=== PATIENT | male | born 1935 | race Caucasian/White ===

== ENCOUNTER 2018-01-31 08:27 | Observation (INO) | payer MEDICARE, SELFPAY ==
[2018-01-31] VITALS (18 sets, daily range): BP systolic 103–133; BP diastolic 63–77; PULSE 55–72; RESP 14–20; TEMP 36.6–36.9; O2SAT 92–99; BMI 24.3; BMI 23.7
--- NOTE | 2018-01-31 08:34 | CT_ITS ---
STUDY: CT BRAIN WITHOUT CONTRAST REASON FOR EXAM: Male, 82 years old. Left facial droop. Slurred speech. RADIATION DOSAGE (If Supplied By Facility): CTDIvol = ( 44.99 ) mGy, DLP = ( 829.85 ) mGycm TECHNIQUE: Transaxial CT imaging of the brain was performed without administration of intravenous contrast material. Individualized dose optimization techniques were used for this CT. COMPARISON: None. FINDINGS: Normal soft tissue structures. Normal calvarium. There is mild cerebral atrophy with widening of the extra-axial spaces and ventricular dilatation. There are areas of decreased attenuation within the white matter tracts of the supratentorial brain, consistent with microvascular disease changes. Normal basal ganglia and thalami. Normal brainstem. Normal cerebellum. There is no intracranial hemorrhage. There are no findings of an acute ischemic infarction. Atherosclerotic calcification of the cavernous portions of the internal carotid arteries bilaterally. Increased density of the right middle cerebral artery. Thrombus should BE ruled out. Correlation with CT of the brain is recommended. Normal visualized paranasal sinuses. CT/Brain/Head without Contrast IMPRESSION: Chronic involutional changes of the brain. Questionable increased density in the right middle cerebral artery. Correlation with a CTA of the brain is recommended. N.B. : The above information has been verbally conveyed by Nick Sylvester MD to Willie Corral, Referring Physician, on 01/31/2018 09:00:16 (ET). Electronically Signed: Nick Sylvester MD at 9:00 EDT Tel [phone], Service support , N.B. : The above information has been verbally conveyed by Nick Sylvester MD to Willie Corral, Referring Physician, on 01/31/2018 09:00:16 (ET).
--- NOTE | 2018-01-31 08:34 | EKG12_ITS ---
Test Reason : CVA Blood Pressure : / mmHG Vent. Rate : 062 BPM Atrial Rate : 062 BPM P-R Int : 214 ms QRS Dur : 104 ms QT Int : 414 ms P-R-T Axes : 020 -30 061 degrees QTc Int : 420 ms Sinus rhythm with 1st degree A-V block with occasional ventricular-paced complexes Left axis deviation Inferior infarct , age undetermined T wave abnormality, consider anterior ischemia Abnormal ECG Confirmed by VERONICA CHANEL, AJITH ([id number]), graphic editor ALESSANDRO GUERRA ([id number]) on 02/01/2018 9:08:59 AM Referred By: SHAW Confirmed By:AJITH MARTIN MD
[2018-01-31 08:35] LABS: Bedside Glucose 120 mg/dL (70-110)
[2018-01-31 08:45] LABS: Absolute Lymphocyte Count 1.99 X10^3/ul (0.83-4.51); Absolute Neutrophil Count 5.4 X10^3/uL (2.0-7.7); Basophil# 0.05 X10^3/uL; Basophil% 0.6 % (0-1); Eosinophil# 0.08 X10^3/uL; Hematocrit 38.7 % (40-54); Hemoglobin 12.6 g/dl (13.0-16.5); Lymphocyte # 1.99 X10^3/ul (4.0); Lymphocyte % 23.9 % (19-41); Mean Corp Hgb Conc 32.6 g/gl (32-36); Mean Corpuscular Hgb 28.4 pg (27.0-32.0); Mean Corpuscular Volume 87.2 fL (80-94); Mean Platelet Vol. 8.5 fl (6.2-12.0); Monocyte# 0.86 X10^3/uL; Monocyte% 10.3 % (0-10); Neutrophil # 5.35 X10^3/uL (2.7-7.7); Neutrophil % 64.1 % (47-70); POSITIVE COUNT NO; POSITIVE DIFFERENTIAL NO; POSITIVE MORPHOLOGY NO; Platelet Count 288 K/mm3 (150-450); RBC Distribution Width CV 14.2 % (11.6-14.6); RBC Distribution Width SD 45.1 fl (35.1-43.9); Red Blood Count 4.44 M/mm3 (4.6-6.2); White Blood Count 8.3 K/mm3 (4.4-11.0)
[2018-01-31 08:59] LABS: International Normalized Ratio 1.1; Prothrombin Time (Protime)PT. 13.8 SECONDS (11.7-14.9)
[2018-01-31 09:00] LABS: Partial Thromboplast Time 32.1 Seconds (24.1-36.2)
[2018-01-31 09:02] LABS: Anion Gap 6 (5-15); BUN 27 mg/dL (7-18); BUN/Creat Ratio 16.6 RATIO (10-20); Calcium,Total 8.1 mg/dL (8.5-10.1); Chloride 105 mmol/L (98-107); Creatinine, Serum 1.63 mg/dL (0.70-1.30); EST Glomerular Filtration Rate 43 mL/min (>60); Est Glom Filt Rate - Afr Amer 52 mL/min (>60); Estimated Creatinine Clearance 37.86 ml/min; Glucose 91 mg/dL (74-106); Potassium 4.1 mmol/L (3.5-5.1); Sodium Level 138 mmol/L (136-145)
--- NOTE | 2018-01-31 09:04 | CT_ITS ---
STUDY: CTA OF THE BRAIN REASON FOR EXAM: Male, 82 years old. Left facial droop. Slurred speech. RADIATION DOSAGE (If Supplied By Facility): CTDIvol = ( 26.39 ) mGy, DLP = ( 828.97 ) mGycm TECHNIQUE: CT angiography was performed with a multi-detector CT scanner. Data acquisition was obtained from the skull base through the vertex following intravenous administration of 75 ml of Isovue-370. MIP images were reconstructed from the axial data set. Post-processing of the angiographic images was performed, with multiplanar reformation and 3D reconstruction. Individualized dose optimization techniques were used for this CT. COMPARISON: None. FINDINGS: Normal bilateral petrous carotid arteries. There is calcified plaque formation of the right cavernous carotid artery, without a cross-sectional luminal stenosis. There is calcified plaque formation of the left cavernous carotid artery, without a cross-sectional luminal stenosis. Normal right A1 segments of the anterior cerebral artery. Normal left A1 segments of the anterior cerebral artery. Normal intact anterior communicating artery (ACOM). Normal bilateral A2 segments of the anterior cerebral arteries. Normal right M1 and M2 segments of the middle cerebral arteries, with a normal M1 bifurcation. Normal left M1 and M2 segments of the middle cerebral arteries, with a normal M1 bifurcation. Normal right posterior communicating artery (PCOM). Normal left posterior communicating artery (PCOM). Normal bilateral vertebral arteries. Normal basilar artery with a normal basilar bifurcation. The visualized bilateral superior cerebellar (SCA) arteries are normal. Normal bilateral P1, P2 and visualized P3 segments of the posterior cerebral arteries. There is no demonstrated aneurysm of the [place] of [place]. IMPRESSION: Normal [place] of [place] without a demonstrated aneurysm or hemodynamically significant stenosis. Electronically Signed: Nick Sylvester MD at 10:48 EDT Tel [phone], Service support , STUDY: CTA NECK WITH CONTRAST REASON FOR EXAM: Male, 82 years old. Left facial droop with slurred speech. RADIATION DOSAGE (If Supplied By Facility): CTDIvol = ( 26.39 ) mGy, DLP = ( 858.97 ) mGycm TECHNIQUE: CT angiography with multi-detector data acquisition was performed from the aortic arch to the skull base following intravenous administration of 75mL ml of Isovue 370 contrast. MIP images were reconstructed from the axial data set. Post-processing of the angiographic images was performed, with multiplanar reformation and 3D reconstruction. Individualized dose optimization techniques were used for this CT. COMPARISON: None. FINDINGS: Prior CABG. AORTIC ARCH: Normal visualized aortic arch. Normal origins of the brachiocephalic, left common carotid, and left subclavian arteries. RIGHT CAROTID ARTERIES: There is atherosclerotic plaque formation of the common carotid artery, but without a hemodynamically significant stenosis. Normal right common carotid bulb. There is mild atherosclerotic plaque formation of the origin of the right internal carotid artery with less than 50% cross sectional diameter stenosis. Normal visualized cervical portion of the right internal carotid artery. Normal origin of the right external carotid artery (ECA). LEFT CAROTID ARTERIES: There is atherosclerotic plaque formation of the common carotid artery, but without a hemodynamically significant stenosis. Normal left common carotid bulb. There is mild atherosclerotic plaque formation of the origin of the left internal carotid artery with less than 50% cross sectional diameter stenosis. Normal visualized cervical portion of the left internal carotid artery. Normal origin of the left external carotid artery (ECA). VERTEBRAL ARTERIES: Normal bilateral vertebral arteries. CT/CTA Neck W/WO Contrast IMPRESSION: Plaque formation at the origins of both internal carotid arteries with less than 50% stenosis. Electronically Signed: Nick Sylvester MD at 10:49 EDT Tel [phone], Service support ,
--- NOTE | 2018-01-31 09:04 | CT_ITS ---
STUDY: CTA OF THE BRAIN REASON FOR EXAM: Male, 82 years old. Left facial droop. Slurred speech. RADIATION DOSAGE (If Supplied By Facility): CTDIvol = ( 26.39 ) mGy, DLP = ( 828.97 ) mGycm TECHNIQUE: CT angiography was performed with a multi-detector CT scanner. Data acquisition was obtained from the skull base through the vertex following intravenous administration of 75 ml of Isovue-370. MIP images were reconstructed from the axial data set. Post-processing of the angiographic images was performed, with multiplanar reformation and 3D reconstruction. Individualized dose optimization techniques were used for this CT. COMPARISON: None. FINDINGS: Normal bilateral petrous carotid arteries. There is calcified plaque formation of the right cavernous carotid artery, without a cross-sectional luminal stenosis. There is calcified plaque formation of the left cavernous carotid artery, without a cross-sectional luminal stenosis. Normal right A1 segments of the anterior cerebral artery. Normal left A1 segments of the anterior cerebral artery. Normal intact anterior communicating artery (ACOM). Normal bilateral A2 segments of the anterior cerebral arteries. Normal right M1 and M2 segments of the middle cerebral arteries, with a normal M1 bifurcation. Normal left M1 and M2 segments of the middle cerebral arteries, with a normal M1 bifurcation. Normal right posterior communicating artery (PCOM). Normal left posterior communicating artery (PCOM). Normal bilateral vertebral arteries. Normal basilar artery with a normal basilar bifurcation. The visualized bilateral superior cerebellar (SCA) arteries are normal. Normal bilateral P1, P2 and visualized P3 segments of the posterior cerebral arteries. There is no demonstrated aneurysm of the [place] of [place]. IMPRESSION: Normal [place] of [place] without a demonstrated aneurysm or hemodynamically significant stenosis. Electronically Signed: Nick Sylvester MD at 10:48 EDT Tel [phone], Service support , STUDY: CTA NECK WITH CONTRAST REASON FOR EXAM: Male, 82 years old. Left facial droop with slurred speech. RADIATION DOSAGE (If Supplied By Facility): CTDIvol = ( 26.39 ) mGy, DLP = ( 858.97 ) mGycm TECHNIQUE: CT angiography with multi-detector data acquisition was performed from the aortic arch to the skull base following intravenous administration of 75mL ml of Isovue 370 contrast. MIP images were reconstructed from the axial data set. Post-processing of the angiographic images was performed, with multiplanar reformation and 3D reconstruction. Individualized dose optimization techniques were used for this CT. COMPARISON: None. FINDINGS: Prior CABG. AORTIC ARCH: Normal visualized aortic arch. Normal origins of the brachiocephalic, left common carotid, and left subclavian arteries. RIGHT CAROTID ARTERIES: There is atherosclerotic plaque formation of the common carotid artery, but without a hemodynamically significant stenosis. Normal right common carotid bulb. There is mild atherosclerotic plaque formation of the origin of the right internal carotid artery with less than 50% cross sectional diameter stenosis. Normal visualized cervical portion of the right internal carotid artery. Normal origin of the right external carotid artery (ECA). LEFT CAROTID ARTERIES: There is atherosclerotic plaque formation of the common carotid artery, but without a hemodynamically significant stenosis. Normal left common carotid bulb. There is mild atherosclerotic plaque formation of the origin of the left internal carotid artery with less than 50% cross sectional diameter stenosis. Normal visualized cervical portion of the left internal carotid artery. Normal origin of the left external carotid artery (ECA). VERTEBRAL ARTERIES: Normal bilateral vertebral arteries. CT/CTA Head W/WO Contrast IMPRESSION: Plaque formation at the origins of both internal carotid arteries with less than 50% stenosis. Electronically Signed: Nick Sylvester MD at 10:49 EDT Tel [phone], Service support ,
[2018-01-31] MEDS: 0.9% Normal Saline 1,000 ML 999 ML IV (09:06)
--- NOTE | 2018-01-31 09:28 | RAD_ITS ---
STUDY: X-RAY CHEST REASON FOR EXAM: Male, 82 years old. Strokelike symptoms. TECHNIQUE: Single AP portable view of the chest. COMPARISON: Comparison is made with prior study dated February 17, 2017. FINDINGS: EKG electrodes are seen. Increased markings are seen in the right midlung. This may represent early infiltrate and/or atelectasis. Follow-up is recommended. There is no demonstrated pleural abnormality. Sternal cerclage wires and vascular clips are present from a prior sternotomy and coronary artery bypass graft procedure (CABG). Mild cardiomegaly. A left-sided dual-chamber pacemaker is seen. Normal mediastinum and yony. Normal visualized pulmonary arteries. There is atherosclerotic calcification of the aortic arch with tortuosity. Normal visualized thoracic spine. Soft tissue calcification in the region of the left shoulder. This may represent osteochondromatosis. There is no demonstrated abnormality of the visualized soft tissue structures of the upper abdomen. RAD/Chest 1 View IMPRESSION: Prior CABG. Increased markings in the right midlung. This is suggestive of atelectasis and/or early infiltrate. Follow-up is recommended. Electronically Signed: Nick Sylvester MD at 9:49 EDT Tel [phone], Service support ,
--- NOTE | 2018-01-31 11:19 | ECHOCS_ITS ---
Reason For Study: Stroke/CAD Procedure This was a 2D Doppler, Color Flow transthoracic echocardiogram. Did not use Definity due to increased PAP. Exam performed portable in ED. Left Ventricle Moderately dilated left ventricle. The estimated ejection fraction is 25 %. Stage 2 diastolic dysfunction. There is severe global hypokinesis of the left ventricle. Right Ventricle Normal size and thickness. ICD or pacer leads identified within the right ventricle. Normal systolic function. Atria The left atrium is severely enlarged. Normal right atrium. ICD or pacer leads identified within the right atrium. Normal atrial septum. Mitral Valve Mild diffuse mitral valve thickening. Mild (1+) eccentric mitral valve insufficiency. Tricuspid Valve Normal tricuspid valve. Mild (1+) tricuspid valve insufficiency. Right ventricular systolic pressure estimated to be 49 mmHg. Moderate pulmonary hypertension. Aortic Valve Trisinus/trileaflet aortic valve. Mild diffuse aortic valve thickening. Trivial aortic valve insufficiency. Pulmonic Valve Normal pulmonic valve. Mild (1+) pulmonic valve insufficiency. Great Vessels Normal aortic root. Normal arch. The inferior vena cava is dilated. Inferior vena cava collapse with sniff. Pericardium/Pleural No pericardial effusion. MMode/2D Measurements & Calculations LVIDd: 4.9 cm IVSd: 1.1 cm Ao root diam: 3.2 cm LVIDs: 4.2 cm LVPWd: 0.98 cm RVDd: 5.4 cm FS: 14.0 % LAV(MOD-bp): 83.1 ml EDV(MOD-sp4): 100.5 ml SV(MOD-sp4): 40.1 ml LAV(MOD-bp) Indexed: 42.2 ml/m2 ESV(MOD-sp4): 60.4 ml LAV(MOD-sp2): 84.8 ml EF(MOD-sp4): 39.9 % LAV(MOD-sp4): 70.7 ml LA A4 area: 23.8 cm2 RA A4 area: 18.0 cm2 Doppler Measurements & Calculations MV E max avni: 76.7 cm/sec Lat Peak E' Avni: 6.8 cm/sec Med Peak E' Avni: 3.3 cm/sec MV A max avni: 58.9 cm/sec E/E' lat: 11.3 E/E' med: 23.3 MV E/A: 1.3 Ao V2 max: 141.8 cm/sec AI max avni: 392.4 cm/sec LV V1 max: 79.2 cm/sec Ao max P.0 mmHg AI max P.6 mmHg LV V1 max P.5 mmHg Ao V2 mean: 100.6 cm/sec AI dec slope: 194.5 cm/sec2 Ao mean P.4 mmHg AI P1/2t: 590.9 msec Ao V2 VTI: 31.7 cm PA V2 max: 76.3 cm/sec PI end-d avni: 133.2 cm/sec TR max avni: 340.8 cm/sec TR max P.4 mmHg Interpretation Summary Moderately dilated left ventricle. The estimated ejection fraction is 25 %. Stage 2 diastolic dysfunction. There is severe global hypokinesis of the left ventricle. The left atrium is severely enlarged. Mild (1+) eccentric mitral valve insufficiency. Mild (1+) tricuspid valve insufficiency. Right ventricular systolic pressure estimated to be 49 mmHg. Moderate pulmonary hypertension. Trivial aortic valve insufficiency. The inferior vena cava is dilated Compared to echo report dated 02/24/2014, LV function has worsened from 55% to 25%. RVSP is about the same. Ordering Physician: Willie Corral Performed By: Rukhsana Waters, LEOBARDO, RVT
--- NOTE | 2018-01-31 11:30 | PCM.HP.STD ---
Problem List (1) Presence of implantable cardioverter-defibrillator (ICD) Status: Chronic (2) Atherosclerotic heart disease of [place] coronary artery without angina pectoris Status: Chronic Qualifiers: [place] vs. transplanted heart: unspecified whether [place] or transplanted heart Qualified Code(s): I25.10 - Atherosclerotic heart disease of [place] coronary artery without angina pectoris Comment: CABG X 3 11/24/10 (3) Hyperlipidemia Status: Chronic Qualifiers: Hyperlipidemia type: unspecified Qualified Code(s): E78.5 - Hyperlipidemia, unspecified (4) Ischemic cardiomyopathy Status: Chronic (5) Paroxysmal atrial fibrillation Status: Chronic (6) CKD (chronic kidney disease) stage 3, GFR 30-59 ml/min Status: Chronic Comment: Baseline Cr 1.2-1.4 (7) HTN (hypertension) Status: Chronic Qualifiers: Hypertension type: essential hypertension Qualified Code(s): I10 - Essential (primary) hypertension (8) S/P CABG x 3 Status: Chronic Comment: CABG X 3v 11/24/10: MENDOZA to LAD,SVG to Diagonal branch of LAD and posterolateral cx (9) Conduction disorder, unspecified Status: Chronic (10) TIA (transient ischemic attack) Status: Acute Qualifiers: Transient cerebral ischemia type: unspecified Qualified Code(s): G45.9 - Transient cerebral ischemic attack, unspecified History of Present Illness Date of Admission: 01/31/18 Chief Complaint: TIA The patient is a 82 y/o M w/ PMHx: CAD s/p CABG x 3, HTN, HLD, Ischemic Cardiomyopathy s/p AICD, Conduction disorder s/p pacemaker, PAF, CKD stage III (baseline Cr 1.3-1.4) who presents to the [facility] ED on 01/31/18 with history of awakening this AM at ~ 5:30 am, noted to have at baseline with onset while seated, reading at ~ 7 am feeling off with abnormal sensation of his tongue with mild dysphagia and eventual discussion with his to report feeling unwell with spouse noted severely garbled speech and L sided facial droop. He improved upon ED presentation and within 1 hour in the ED noted return to his normal baseline neurological status. While in the ED, physician noted telemetry w/ paced, sinus and ? PAF variations to his rhythm. Dr. Lucas, Neurology consulted per ED and requested addition UA to his work-up. In the ED work-up included afebrile, heart rate 68, BP 109/64, respiratory rate 15, 97% on 2 L nasal cannula, EDC with W BC 8.3, hemoglobin 12.6, platelet 288 without left shift, normal coags, BMP w/ BUN/Cr 27/1.63, trop < 0.015, UA pending, CXR w/ s/p CABG, increased markings R midlung, possibly atelectasis, CT head in the ED w/ chronic involutional changes of the brain with questionable increased density in the right middle cerebral artery, CTA Head with normal-appearing [place], CTA Neck with plaque formation at the origins of both internal carotid arteries with less than 50% stenosis. Past Medical History Past Medical History (Chronic Problems): Chronic Problems (Last Reviewed 10/17/17 @ 09:29 by Ten Tineo MD) Presence of implantable cardioverter-defibrillator (ICD) (Chronic) Atherosclerotic heart disease of [place] coronary artery without angina pectoris (Chronic) CABG X 3 11/24/10 Hyperlipidemia (Chronic) Ischemic cardiomyopathy (Chronic) Abnormal electrocardiogram [ECG] [EKG] (Chronic) Biventricular automatic implantable cardioverter defibrillator in situ (Chronic) ICD Implant 05/25/11 Paroxysmal atrial fibrillation (Chronic) Palpitations (Chronic) CKD (chronic kidney disease) stage 3, GFR 30-59 ml/min (Chronic) Baseline Cr 1.2-1.4 HTN (hypertension) (Chronic) S/P CABG x 3 (Chronic) CABG X 3v 11/24/10: MENDOZA to LAD,SVG to Diagonal branch of LAD and posterolateral cx Pacemaker (Chronic) Conduction disorder, unspecified (Chronic) Medical History: Medical History (Last Reviewed 10/17/17 @ 09:29 by Ten Tineo MD) Atherosclerotic heart disease of [place] coronary artery without angina pectoris (Chronic) I25.10 CABG X 3 11/24/10 Hyperlipidemia (Chronic) E78.5 Ischemic cardiomyopathy (Chronic) I25.5 Abnormal electrocardiogram [ECG] [EKG] (Chronic) R94.31 Paroxysmal atrial fibrillation (Chronic) I48.0 Palpitations (Chronic) R00.2 HTN (hypertension) (Chronic) I10 Pacemaker (Chronic) Z95.0 Encounter for long-term current use of high risk medication Z79.899 Allergies No Known Allergies Allergy (Verified 01/31/18 08:49) Home Medications: Ambulatory Orders Medication Instructions Recorded Aspirin [Aspirin, Baby] 81 mg PO DAILY@0800 02/16/17 Wilber Q Plus 1 tab PO BID 02/17/17 Carvedilol [Coreg (Beta Srinivasa)] 12.5 mg PO BID 01/31/18 Surgical History: Surgical History (Last Updated 11/03/17 @ 18:49 by Tamara Nino) Presence of implantable cardioverter-defibrillator (ICD) (Chronic) Z95.810 Biventricular automatic implantable cardioverter defibrillator in situ (Chronic) Z95.810 ICD Implant 05/25/11 S/P CABG x 3 (Chronic) Z95.1 CABG X 3v 11/24/10: MENDOZA to LAD,SVG to Diagonal branch of LAD and posterolateral cx Surgical History: coronary bypass surgery, pacemaker implantation, - - CABG x 3, AICD/Pacemaker, R inguinal hernia x 2, L inguinal hernia x 1, Possible femoral hernia x 1 per description. Psychiatric History: No pertinent psych hx Lives: Spouse/ Significant Other Smoking Status: Never smoker Tobacco Use: Non-smoker Alcohol: None Drugs: None - *Family History Paternal Family History: Family History (Last Reviewed 10/17/17 @ 09:29 by Ten Tineo MD) Father CAD (coronary artery disease), Onset Age: 55 Mother No problems noted. Brother CAD (coronary artery disease) History of coronary artery bypass graft x 3 Brother Cancer Brother Unknown whether patient has any health problems Brother No problems noted. History Items: Heart Disease Maternal Family History: Family History (Last Reviewed 10/17/17 @ 09:29 by Ten Tineo MD) Father CAD (coronary artery disease), Onset Age: 55 Mother No problems noted. Brother CAD (coronary artery disease) History of coronary artery bypass graft x 3 Brother Cancer Brother Unknown whether patient has any health problems Brother No problems noted. History Items: No pertinent history Review of Systems Constitutional: Reports: Fatigue. Denies: Chills, Fever, Weight Change HEENT: Denies: Head Aches, Sinus Congestion, Sinus Drainage Cardiovascular: Denies: Chest Pain, Chest Pressure, Chest Tightness, Edema, Heaviness, Light Headedness, Orthopnea, Palpitations, Syncope Respiratory: Denies: Cough, Shortness of Breath, Shortness of breath at rest, Shortness of breath upon exertion, Sputum production, Wheezing Gastrointestinal: Denies: Abdominal Pain, Nausea, Vomiting Genitourinary: Denies: Dysuria Musculoskeletal: Reports: Joint stiffness. Denies: Joint Pain, Joint Tenderness Skin: Denies: Rash, Skin Changes, Wounds Neurological: Reports: Slurred speech, Focal weakness. Denies: Numbness, Tingling Psychiatric: Denies: Anxiety, Depression, Homicidal Ideations, Suicidal Ideations Hematologic/ Lymphatic: Reports: Anemia, Easy Bruising, Easy Bleeding VTE Information - Inpt Only VTE Present on Admission: No VTE Mechan Device Prophylaxis: SCD's VTE Pharm Prophylaxis ordered?: Yes Patient Problems: Active and Suspected Problems (Last Reviewed 10/17/17 @ 09:29 by Ten Tineo MD) TIA (transient ischemic attack) (Acute) Subjective: Seated upright in the PCU bed, NAD, notes neurologically has returned to his baseline. Objective: Physical Examination: General: awake, alert, oriented x 3 and cooperative, seated upright in the PCU bed in no apparent distress. Skin: normal color, turgor, no icterus, cyanosis except occasional extremity ecchymoses. HEENT: AT/NC, EOMI, PERRLA, MMM, no carotid bruits or JVD noted. Lungs: CTA bilaterally, moderate effort, mild decrease BL bases, no rales, ronchi or wheezing. Heart: Regular rate and rhythm (paced); no gallop, rub audible. Abdomen: soft, NTTP, ND, normal BS, no HSM. Extremities: no cyanosis, clubbing, or edema. Neurological: patient awake, alert, oriented x 3; cognitive function intact; pupils equally reactive to light and accomodation; cranial nerves II-XII grossly normal, moving all 4 extremities, no focal deficits, strength preserved, sensation intact, no facial droop noted, no dysarthria, FTN/HTS intact, negative babinski. Psychiatric: affect appears normal, no acute evidence of depressive or anxiety feelings. - Physical Exam Vital Signs Temp Pulse Resp BP Pulse Ox 98.2 F 56 L 16 121/77 H 97 01/31/18 08:43 01/31/18 11:15 01/31/18 11:15 01/31/18 11:15 01/31/18 11:15 Oxygen Flow Rate (L/min) 2 Oxygen Delivery Method Nasal Cannula Weight: 174 lb 2.643 oz Body Mass Index (BMI) 24.3 Finger Stick Blood Glucose 120 Laboratory Tests Past 24 Hrs 01/31/18 01/31/18 01/31/18 08:30 08:30 08:30 WBC 8.3 RBC 4.44 L Hgb 12.6 L Hct 38.7 L MCV 87.2 MCH 28.4 MCHC 32.6 RDW 14.2 RDW Differential 45.1 H Plt Count 288 MPV 8.5 Immature Gran % (Auto) 0.100 Neut % (Auto) 64.1 Lymph % (Auto) 23.9 [place] % (Auto) 10.3 H Eos % (Auto) 1.0 Baso % (Auto) 0.6 Absolute Neuts (auto) 5.4 Absolute Lymphs (auto) 1.99 Total Counted Not Reportable PT 13.8 INR 1.1 APTT 32.1 Sodium 138 Potassium 4.1 Chloride 105 Carbon Dioxide 27.0 Anion Gap 6 BUN 27 H Creatinine 1.63 H Estim Creat Clear Calc 37.86 Est GFR (MDRD) Af Amer 52 L Est GFR (MDRD) Non-Af 43 L BUN/Creatinine Ratio 16.6 Glucose 91 Calcium 8.1 L Troponin I < 0.015 POC Glucose 01/31/18 08:33 POC Glucose 120 H Assessment/Plan All Active Problems (Last Reviewed 10/17/17 @ 09:29 by Ten Tineo MD) TIA (transient ischemic attack) (Acute) Generalized weakness (Acute) Dyspnea on exertion (Acute) Healthcare-associated pneumonia (Acute) Ataxia (Acute) The patient is a 82 y/o M w/ PMHx: CAD s/p CABG x 3, HTN, HLD, Ischemic Cardiomyopathy s/p AICD, Conduction disorder s/p pacemaker, PAF, CKD stage III (baseline Cr 1.3-1.4) who presents to the [facility] ED on 01/31/18 with history of awakening this AM at ~ 5:30 am, noted to have at baseline with onset while seated, reading at ~ 7 am feeling off with abnormal sensation of his tongue with mild dysphagia and eventual discussion with his to report feeling unwell with spouse noted severely garbled speech and L sided facial droop. (1) Dysphagia, Dysarthria, L Facial Droop, Resolved concerning for TIA/CVA: Will admit to PCU, unable to obtain MRI secondary to AICD/pacemaker status, CT head in the ED w/ chronic involutional changes of the brain with questionable increased density in the right middle cerebral artery, CTA Head with normal-appearing [place], CTA Neck with plaque formation at the origins of both internal carotid arteries with less than 50% stenosis, will obtain ECHO, PT/OT/Speech/Nutrition evaluation per protocol. Will continue consult with Neurology for evaluation. Given resolution of sxs and PAF history will continue BB therapy, maintain on asa, adding renally dosed eliquis given PAF and acute presentation, add statin w/ AM FLP, fall precautions. (2) PAF: Maintain on coreg, initiate renally dosed eliquis, although will defer to Cardiology as requested consultation from Neurology, ECHO pending. Mag pending. TSH pending. (3) CAD: s/p CABG, maintain on asa, adding as noted eliquis, continued BB, adding statin w/ AM FLP. (4) [place] Disorder: s/p pacemaker/AICD, Cardiology consulted per ED and pending. (5) Ischemic Cardiomyopathy: Maintain on asa, adding eliquis given PAF history and acute presentation renally dosed, continue BB, not on ACEI, possible secondary to CKD. ECHO pending. (6) Normocytic Anemia: Admission Hgb 12.6, from review of records, chronic, will obtain Fe panel, ferritin, vitamin B12 and folic acid levels. (7) Hypertension: Continue home BB regimen. (8) Hyperlipidemia: Add statin, FLP in AM. (9) CKD stage III: Admission BUN/Cr 27/1.63, baseline 1.3-1.4, hydrating given recent CTA. (10) GERD: Protonix. (11) DVT Prophylaxis: SCDs, initiate eliquis renally dosed. (12) CODE status: Discussed CODE status at length including difference between FULL code, DNR-CCA and DNR-CC status. Following discussions about the differences in these status, requested FULL CODE status, does have living will in place with specifics and notes is HCPOA. Advanced Care Planning Face to Face Time: 18 minutes. Code Visit OBSV E&M: 51876 Initial observation care L3 Procedures: 83414 Advncd Care Plan 30 Min
--- NOTE | 2018-01-31 11:33 | HP.PCM_ITS ---
Problem List (1) Presence of implantable cardioverter-defibrillator (ICD) Status: Chronic (2) Atherosclerotic heart disease of [place] coronary artery without angina pectoris Status: Chronic Qualifiers: [place] vs. transplanted heart: unspecified whether [place] or transplanted heart Qualified Code(s): I25.10 - Atherosclerotic heart disease of [place] coronary artery without angina pectoris Comment: CABG X 3 11/24/10 (3) Hyperlipidemia Status: Chronic Qualifiers: Hyperlipidemia type: unspecified Qualified Code(s): E78.5 - Hyperlipidemia , unspecified (4) Ischemic cardiomyopathy Status: Chronic (5) Paroxysmal atrial fibrillation Status: Chronic (6) CKD (chronic kidney disease) stage 3, GFR 30-59 ml/min Status: Chronic Comment: Baseline Cr 1.2-1.4 (7) HTN (hypertension) Status: Chronic Qualifiers: Hypertension type: essential hypertension Qualified Code(s): I10 - Essential (primary) hypertension (8) S/P CABG x 3 Status: Chronic Comment: CABG X 3v 11/24/10: MENDOZA to LAD,SVG to Diagonal branch of LAD and posterolateral cx (9) Conduction disorder, unspecified Status: Chronic (10) TIA (transient ischemic attack) Status: Acute Qualifiers: Transient cerebral ischemia type: unspecified Qualified Code(s): G45.9 - Transient cerebral ischemic attack, unspecified History of Present Illness Date of Admission: 01/31/18 Chief Complaint: TIA The patient is a 82 y/o M w/ PMHx: CAD s/p CABG x 3, HTN, HLD, Ischemic Cardiomyopathy s/p AICD, Conduction disorder s/p pacemaker, PAF, CKD stage III ( baseline Cr 1.3-1.4) who presents to the [facility] ED on 01/31/18 with history of awakening this AM at ~ 5:30 am, noted to have at baseline with onset while seated, reading at ~ 7 am feeling off with abnormal sensation of his tongue with mild dysphagia and eventual discussion with his to report feeling unwell with spouse noted severely garbled speech and L sided facial droop. He improved upon ED presentation and within 1 hour in the ED noted return to his normal baseline neurological status. While in the ED, physician noted telemetry w/ paced, sinus and ? PAF variations to his rhythm. Dr. Lucas, Neurology consulted per ED and requested addition UA to his work-up. In the ED work-up included afebrile, heart rate 68, BP 109/64, respiratory rate 15, 97% on 2 L nasal cannula, EDC with W BC 8.3, hemoglobin 12.6, platelet 288 without left shift, normal coags, BMP w/ BUN/Cr 27/1.63, trop < 0.015, UA pending, CXR w/ s/ p CABG, increased markings R midlung, possibly atelectasis, CT head in the ED w / chronic involutional changes of the brain with questionable increased density in the right middle cerebral artery, CTA Head with normal-appearing [place], CTA Neck with plaque formation at the origins of both internal carotid arteries with less than 50% stenosis. Past Medical History Past Medical History (Chronic Problems): Chronic Problems (Last Reviewed 10/17/17 @ 09:29 by Ten Tineo MD) Presence of implantable cardioverter-defibrillator (ICD) (Chronic) Atherosclerotic heart disease of [place] coronary artery without angina pectoris (Chronic) CABG X 3 11/24/10 Hyperlipidemia (Chronic) Ischemic cardiomyopathy (Chronic) Abnormal electrocardiogram [ECG] [EKG] (Chronic) Biventricular automatic implantable cardioverter defibrillator in situ (Chronic) ICD Implant 05/25/11 Paroxysmal atrial fibrillation (Chronic) Palpitations (Chronic) CKD (chronic kidney disease) stage 3, GFR 30-59 ml/min (Chronic) Baseline Cr 1.2-1.4 HTN (hypertension) (Chronic) S/P CABG x 3 (Chronic) CABG X 3v 11/24/10: MENDOZA to LAD,SVG to Diagonal branch of LAD and posterolateral cx Pacemaker (Chronic) Conduction disorder, unspecified (Chronic) Medical History: Medical History (Last Reviewed 10/17/17 @ 09:29 by Ten Tineo MD) Atherosclerotic heart disease of [place] coronary artery without angina pectoris (Chronic) I25.10 CABG X 3 11/24/10 Hyperlipidemia (Chronic) E78.5 Ischemic cardiomyopathy (Chronic) I25.5 Abnormal electrocardiogram [ECG] [EKG] (Chronic) R94.31 Paroxysmal atrial fibrillation (Chronic) I48.0 Palpitations (Chronic) R00.2 HTN (hypertension) (Chronic) I10 Pacemaker (Chronic) Z95.0 Encounter for long-term current use of high risk medication Z79.899 Allergies No Known Allergies Allergy (Verified 01/31/18 08:49) Home Medications: Ambulatory Orders Medication Instructions Recorded Aspirin [Aspirin, Baby] 81 mg PO DAILY@0800 02/16/17 Fleming Q Plus 1 tab PO BID 02/17/17 Carvedilol [Coreg (Beta Srinivasa)] 12.5 mg PO BID 01/31/18 Surgical History: Surgical History (Last Updated 11/03/17 @ 18:49 by Tamara Nino) Presence of implantable cardioverter-defibrillator (ICD) (Chronic) Z95.810 Biventricular automatic implantable cardioverter defibrillator in situ (Chronic ) Z95.810 ICD Implant 05/25/11 S/P CABG x 3 (Chronic) Z95.1 CABG X 3v 11/24/10: MENDOZA to LAD,SVG to Diagonal branch of LAD and posterolateral cx Surgical History: coronary bypass surgery, pacemaker implantation, - - CABG x 3 , AICD/Pacemaker, R inguinal hernia x 2, L inguinal hernia x 1, Possible femoral hernia x 1 per description. Psychiatric History: No pertinent psych hx Lives: Spouse/ Significant Other Smoking Status: Never smoker Tobacco Use: Non-smoker Alcohol: None Drugs: None - *Family History Paternal Family History: Family History (Last Reviewed 10/17/17 @ 09:29 by Ten Tineo MD) Father CAD (coronary artery disease), Onset Age: 55 Mother No problems noted. Brother CAD (coronary artery disease) History of coronary artery bypass graft x 3 Brother Cancer Brother Unknown whether patient has any health problems Brother No problems noted. History Items: Heart Disease Maternal Family History: Family History (Last Reviewed 10/17/17 @ 09:29 by Ten Tineo MD) Father CAD (coronary artery disease), Onset Age: 55 Mother No problems noted. Brother CAD (coronary artery disease) History of coronary artery bypass graft x 3 Brother Cancer Brother Unknown whether patient has any health problems Brother No problems noted. History Items: No pertinent history Review of Systems Constitutional: Reports: Fatigue. Denies: Chills, Fever, Weight Change HEENT: Denies: Head Aches, Sinus Congestion, Sinus Drainage Cardiovascular: Denies: Chest Pain, Chest Pressure, Chest Tightness, Edema, Heaviness, Light Headedness, Orthopnea, Palpitations, Syncope Respiratory: Denies: Cough, Shortness of Breath, Shortness of breath at rest, Shortness of breath upon exertion, Sputum production, Wheezing Gastrointestinal: Denies: Abdominal Pain, Nausea, Vomiting Genitourinary: Denies: Dysuria Musculoskeletal: Reports: Joint stiffness. Denies: Joint Pain, Joint Tenderness Skin: Denies: Rash, Skin Changes, Wounds Neurological: Reports: Slurred speech, Focal weakness. Denies: Numbness, Tingling Psychiatric: Denies: Anxiety, Depression, Homicidal Ideations, Suicidal Ideations Hematologic/ Lymphatic: Reports: Anemia, Easy Bruising, Easy Bleeding VTE Information - Inpt Only VTE Present on Admission: No VTE Mechan Device Prophylaxis: SCD's VTE Pharm Prophylaxis ordered?: Yes Patient Problems: Active and Suspected Problems (Last Reviewed 10/17/17 @ 09:29 by Ten Tineo MD ) TIA (transient ischemic attack) (Acute) Subjective: Seated upright in the PCU bed, NAD, notes neurologically has returned to his baseline. Objective: Physical Examination: General: awake, alert, oriented x 3 and cooperative, seated upright in the PCU bed in no apparent distress. Skin: normal color, turgor, no icterus, cyanosis except occasional extremity ecchymoses. HEENT: AT/NC, EOMI, PERRLA, MMM, no carotid bruits or JVD noted. Lungs: CTA bilaterally, moderate effort, mild decrease BL bases, no rales, ronchi or wheezing. Heart: Regular rate and rhythm (paced); no gallop, rub audible. Abdomen: soft, NTTP, ND, normal BS, no HSM. Extremities: no cyanosis, clubbing, or edema. Neurological: patient awake, alert, oriented x 3; cognitive function intact; pupils equally reactive to light and accomodation; cranial nerves II-XII grossly normal, moving all 4 extremities, no focal deficits, strength preserved , sensation intact, no facial droop noted, no dysarthria, FTN/HTS intact, negative babinski. Psychiatric: affect appears normal, no acute evidence of depressive or anxiety feelings. - Physical Exam Vital Signs Temp Pulse Resp BP Pulse Ox 98.2 F 56 L 16 121/77 H 97 01/31/18 08:43 01/31/18 11:15 01/31/18 11:15 01/31/18 11:15 01/31/18 11:15 Oxygen Flow Rate (L/min) 2 Oxygen Delivery Method Nasal Cannula Weight: 174 lb 2.643 oz Body Mass Index (BMI) 24.3 Finger Stick Blood Glucose 120 Laboratory Tests Past 24 Hrs 01/31/18 01/31/18 01/31/18 08:30 08:30 08:30 WBC 8.3 RBC 4.44 L Hgb 12.6 L Hct 38.7 L MCV 87.2 MCH 28.4 MCHC 32.6 RDW 14.2 RDW Differential 45.1 H Plt Count 288 MPV 8.5 Immature Gran % (Auto) 0.100 Neut % (Auto) 64.1 Lymph % (Auto) 23.9 [facility] % (Auto) 10.3 H Eos % (Auto) 1.0 Baso % (Auto) 0.6 Absolute Neuts (auto) 5.4 Absolute Lymphs (auto) 1.99 Total Counted Not Reportable PT 13.8 INR 1.1 APTT 32.1 Sodium 138 Potassium 4.1 Chloride 105 Carbon Dioxide 27.0 Anion Gap 6 BUN 27 H Creatinine 1.63 H Estim Creat Clear Calc 37.86 Est GFR (MDRD) Af Amer 52 L Est GFR (MDRD) Non-Af 43 L BUN/Creatinine Ratio 16.6 Glucose 91 Calcium 8.1 L Troponin I < 0.015 POC Glucose 01/31/18 08:33 POC Glucose 120 H Assessment/Plan All Active Problems (Last Reviewed 10/17/17 @ 09:29 by Ten Tineo MD) TIA (transient ischemic attack) (Acute) Generalized weakness (Acute) Dyspnea on exertion (Acute) Healthcare-associated pneumonia (Acute) Ataxia (Acute) The patient is a 82 y/o M w/ PMHx: CAD s/p CABG x 3, HTN, HLD, Ischemic Cardiomyopathy s/p AICD, Conduction disorder s/p pacemaker, PAF, CKD stage III ( baseline Cr 1.3-1.4) who presents to the [facility] ED on 01/31/18 with history of awakening this AM at ~ 5:30 am, noted to have at baseline with onset while seated, reading at ~ 7 am feeling off with abnormal sensation of his tongue with mild dysphagia and eventual discussion with his to report feeling unwell with spouse noted severely garbled speech and L sided facial droop. (1) Dysphagia, Dysarthria, L Facial Droop, Resolved concerning for TIA/CVA: Will admit to PCU, unable to obtain MRI secondary to AICD/pacemaker status, CT head in the ED w/ chronic involutional changes of the brain with questionable increased density in the right middle cerebral artery, CTA Head with normal- appearing [place], CTA Neck with plaque formation at the origins of both internal carotid arteries with less than 50% stenosis, will obtain ECHO, PT /OT/Speech/Nutrition evaluation per protocol. Will continue consult with Neurology for evaluation. Given resolution of sxs and PAF history will continue BB therapy, maintain on asa, adding renally dosed eliquis given PAF and acute presentation, add statin w/ AM FLP, fall precautions. (2) PAF: Maintain on coreg, initiate renally dosed eliquis, although will defer to Cardiology as requested consultation from Neurology, ECHO pending. Mag pending. TSH pending. (3) CAD: s/p CABG, maintain on asa, adding as noted eliquis, continued BB, adding statin w/ AM FLP. (4) [place] Disorder: s/p pacemaker/AICD, Cardiology consulted per ED and pending. (5) Ischemic Cardiomyopathy: Maintain on asa, adding eliquis given PAF history and acute presentation renally dosed, continue BB, not on ACEI, possible secondary to CKD. ECHO pending. (6) Normocytic Anemia: Admission Hgb 12.6, from review of records, chronic, will obtain Fe panel, ferritin, vitamin B12 and folic acid levels. (7) Hypertension: Continue home BB regimen. (8) Hyperlipidemia: Add statin, FLP in AM. (9) CKD stage III: Admission BUN/Cr 27/1.63, baseline 1.3-1.4, hydrating given recent CTA. (10) GERD: Protonix. (11) DVT Prophylaxis: SCDs, initiate eliquis renally dosed. (12) CODE status: Discussed CODE status at length including difference between FULL code, DNR-CCA and DNR-CC status. Following discussions about the differences in these status, requested FULL CODE status, does have living will in place with specifics and notes is HCPOA. Advanced Care Planning Face to Face Time: 18 minutes. Code Visit OBSV E&M: 73433 Initial observation care L3 Procedures: 22138 Advncd Care Plan 30 Min
--- NOTE | 2018-01-31 11:38 | CM.ED ---
Social Work Note Attempted to see for initial assessment. Radiology in with pt, and SW to return as time allows. Ashley Kendall, PROCESS IMPROVEMENT ENGINEER, WIRE ROPE FABRICATION SUPERVISOR
[2018-01-31 11:41] LABS: Bacteria 0 SEEN /hpf (None Seen); Mucous, Urine 0 SEEN /hpf (<or=2+); Red Blood Cells-Urine 0 SEEN /hpf (0-5)
[2018-01-31 11:43] LABS: Color, Urine Yellow (Yellow); Glucose, Dipstick Normal (Normal); Ketone-Dipstick Negative (Negative); Leukocyte Esterase-Dipstick 25 /ul (Negative); Nitrite-Dipstick Negative (Negative); Occult Blood-Urine 10 /ul (Negative); Protein-Dipstick Negative (Negative); Urine Bilirubin Dipstick Negative (Negative); Urine Clarity Clear (Clear); Urine Urobilinogen Normal (Normal)
--- NOTE | 2018-01-31 11:49 | ED.DCSUM_ITS ---
- ER Visit Summary Date of Service: 01/31/18 Chief Complaint: Stroke History of Present Illness: The patient is a 82 M who states that he woke around 0530 hours this morning. At about 0700 hours the patient was reading a magazine and he noticed that something was not right with his tongue and his swallowing. He got up and decided to try to do some painting but it did not get better. He went found his notes that she could not understand anything he was saying that he had left-sided facial droop. By the time they got here it was improved but still present. He has a history of chronic kidney disease hypertension coronary artery disease/CABG and has a pacemaker due to conduction disorder. He has a history of paroxysmal atrial fibrillation per chart patient denies known history of. Physical Examination: Afebrile vital signs are stable Gen: Well-nourished well-developed Head: Normocephalic atraumatic Eyes: Perrl EOMI ENT: TMs clear no rhinorrhea moist mucous membranes Neck: Supple no lymphadenopathy no JVD nontender CVS: Regular rate rhythm no murmurs normal S1-S2 Respiratory: No distress clear to auscultation bilaterally chest nontender Abdomen: Soft nontender nondistended normal bowel sounds no masses Back: Nontender Extremity: Nontender no edema Skin: Normal color no rash Neuro: alert orientated ?3 patient has a NIH of 2 - 1 point for dysarthria 1 point for facial droop. Psych: Normal affect normal mood Test Results: She appeared to have episodes of atrial fibrillation on the monitor. EKG shows a sinus rhythm with a first-degree AV block. CBC chemistries showed a creatinine 1.63 BUN 27. Troponin negative. Coags obtained. CT the head showed a possible dense right MCA sign. CT Melba of the head and neck was requested by neurology and did not show any obvious cut offs. Plan will be admission into the hospital. Emergency Department Course and Treatment: Patient received a liter of IV fluids. Within approximately 1 hour of her his arrival symptoms have resolved. I spoke with stroke neurology, radiology, cardiology, and our hospitalist and the patient will be admitted. Impression: 1. TIA 2. Paroxysmal atrial fibrillation This note was generated with [employer] software. It may contain incorrect words, spelling, and punctuation that were not noted in review of the chart prior to signing ED Disposition - Plan for ED Patient: Chief Complaint: Neuro S/Sx Referrals: Aroldo Julio MD [Primary Care Provider] -
[2018-01-31 11:55] LABS: Squamous Epithelial Cells - UA 0-5 SEEN /hpf (0-5); White Blood Cells 0-5 SEEN /hpf (0-5)
[2018-01-31] MEDS: 0.9% Normal Saline 1,000 ML 75 ML IV (13:34)
[2018-01-31 13:56] LABS: Vitamin B12 843 pg/mL (211-911)
[2018-01-31 14:04] LABS: Magnesium 2.1 mg/dL (1.6-2.6); Thyroid Stim Hormone (TSH) 2.37 uIU/mL (0.358-3.74)
[2018-01-31 14:19] LABS: Ferritin 43 ng/mL (26-388); Iron 35 ug/dL (65-175); Iron Binding Capacity,Total 232 ug/dL (250-450); PERCENT IRON SATURATION 15.1 % (15.0-55.0)
--- NOTE | 2018-01-31 15:00 | PCM.CONS.C ---
Problem List (1) TIA (transient ischemic attack) Status: Acute Qualifiers: Transient cerebral ischemia type: unspecified Qualified Code(s): G45.9 - Transient cerebral ischemic attack, unspecified (2) Presence of implantable cardioverter-defibrillator (ICD) Status: Chronic (3) Atherosclerotic heart disease of [place] coronary artery without angina pectoris Status: Chronic Qualifiers: [place] vs. transplanted heart: unspecified whether [place] or transplanted heart Qualified Code(s): I25.10 - Atherosclerotic heart disease of [place] coronary artery without angina pectoris Comment: CABG X 3 11/24/10 (4) Hyperlipidemia Status: Chronic Qualifiers: Hyperlipidemia type: unspecified Qualified Code(s): E78.5 - Hyperlipidemia, unspecified (5) Ischemic cardiomyopathy Status: Chronic (6) Abnormal electrocardiogram [ECG] [EKG] Status: Chronic (7) Paroxysmal atrial fibrillation Status: Chronic (8) HTN (hypertension) Status: Chronic Qualifiers: Hypertension type: essential hypertension Qualified Code(s): I10 - Essential (primary) hypertension (9) S/P CABG x 3 Status: Chronic Comment: CABG X 3v 11/24/10: MENDOZA to LAD,SVG to Diagonal branch of LAD and posterolateral cx (10) Pacemaker Status: Chronic Reason for Consult Date of Consultation: 01/31/18 Reason for Consultation: TIA/C [place], coronary disease status post CABG, paroxysmal atrial fibrillation, ischemic cardiomyopathy, LV dysfunction, hypertension, hypercholesterolemia History of Present Illness: The patient is a 82 year old M patient of Dr. Chirinos with a history of hypertension, hypercholesterolemia, coronary artery disease status post three-vessel bypass surgery at [facility] in 2010. The patient had subsequent diagnosis of severe cardiomyopathy requiring AICD placement by Dr. Bronson at [facility] soon thereafter. In addition the patient has had interrogations of his pacemaker detecting periodic atrial flutter and atrial fibrillation in the past. Patient was in normal health up until this morning when he developed slurring of his speech, and difficulty speaking as well as numbness in his tongue. He immediately identified that he could be a stroke and came to the emergency room. A stroke team was called, and after medical therapy the patient's speech returned back to normal. At no time did he have any chest pain, angina, shortness of breath or dyspnea on exertion. During his stay in the emergency room apparently his telemetry indicated he had periods of atrial fibrillation although this was not printed out or documented to the best of my knowledge. For this reason neurology recommended a cardiology consultation. The patient just had his defibrillator interrogated this past Monday, and he does have an atrial lead. That report is not been placed in the computer as of yet. He does carry with him a history of atrial fibrillation. An echocardiogram done in the ER showed severe global LV dysfunction with an EF around 25%, mild mitral regurgitation, trivial aortic insufficiency, and an RVSP of approximately 49 mmHg. His previous echocardiogram on 02/24/14 suggested an EF around 55%. His EKG on admission showed normal sinus rhythm with occasional paced ventricular beat. Telemetry shows normal sinus rhythm, occasional pacemaker mediated tachycardia, and occasional atrial fibrillation. He is currently resting comfortably. On further history prior to his event he denies any change in his exercise capacity, chest pain, angina, shortness of breath or dyspnea on exertion. He is compliant with his medications. [] Past Medical History Allergies/Adverse Reactions: Allergies No Known Allergies Allergy (Verified 01/31/18 08:49) Home Medications: Ambulatory Orders Medication Instructions Recorded Aspirin [Aspirin, Baby] 81 mg PO DAILY@0800 02/16/17 [place] Q Plus 1 tab PO BID 02/17/17 Carvedilol [Coreg (Beta Srinivasa)] 12.5 mg PO BID 01/31/18 Past Medical History (Chronic Problems): Chronic Problems (Last Reviewed 10/17/17 @ 09:29 by Ten Tineo MD) Presence of implantable cardioverter-defibrillator (ICD) (Chronic) Atherosclerotic heart disease of [place] coronary artery without angina pectoris (Chronic) CABG X 3 11/24/10 Hyperlipidemia (Chronic) Ischemic cardiomyopathy (Chronic) Abnormal electrocardiogram [ECG] [EKG] (Chronic) Biventricular automatic implantable cardioverter defibrillator in situ (Chronic) ICD Implant 05/25/11 Paroxysmal atrial fibrillation (Chronic) Palpitations (Chronic) CKD (chronic kidney disease) stage 3, GFR 30-59 ml/min (Chronic) Baseline Cr 1.2-1.4 HTN (hypertension) (Chronic) S/P CABG x 3 (Chronic) CABG X 3v 11/24/10: MENDOZA to LAD,SVG to Diagonal branch of LAD and posterolateral cx Pacemaker (Chronic) Conduction disorder, unspecified (Chronic) Surgical History: coronary bypass surgery, pacemaker implantation, - - CABG x 3, AICD/Pacemaker, R inguinal hernia x 2, L inguinal hernia x 1, Possible femoral hernia x 1 per description. Psychiatric History: No pertinent psych hx - *Family History Paternal Family History: Family History (Last Reviewed 10/17/17 @ 09:29 by Ten Tineo MD) Father CAD (coronary artery disease), Onset Age: 55 Mother No problems noted. Brother CAD (coronary artery disease) History of coronary artery bypass graft x 3 Brother Cancer Brother Unknown whether patient has any health problems Brother No problems noted. History Items: Heart Disease Maternal Family History: Family History (Last Reviewed 10/17/17 @ 09:29 by Ten Tineo MD) Father CAD (coronary artery disease), Onset Age: 55 Mother No problems noted. Brother CAD (coronary artery disease) History of coronary artery bypass graft x 3 Brother Cancer Brother Unknown whether patient has any health problems Brother No problems noted. History Items: No pertinent history Lives: Spouse/ Significant Other Smoking Status: Never smoker Tobacco Use: Non-smoker Alcohol: None Drugs: None Review of Systems - Review of Systems General: Denies: Fever, Night Sweats, Fatigue Cardiovascular: Denies: Chest Discomfort, Shortness of Breath, Orthopnea, PND, Peripheral Edema, Palpitations, Lightheadedness, Dizziness, Near Syncope, Syncope Respiratory: Denies: Cough, Sputum Production, Hemoptysis Gastrointestinal: Denies: Hematemesis, Hematochezia, Melena Genitourinary: Denies: Dysuria, Hematuria Skin: Denies: Rash Neurological: Reports: Numbness Subjectve: Patient resting comfortably, no acute distress. Objective: Vital Signs Temp Pulse Resp BP Pulse Ox 98.1 F 65 16 126/66 H 94 01/31/18 13:21 01/31/18 13:21 01/31/18 13:21 01/31/18 13:21 01/31/18 13:21 Oxygen Delivery Method Room Air Weight: 170 lb Body Mass Index (BMI) 23.7 General: Awake, Alert, Oriented x 3 HEENT: PERRL, EOMI, Sclera Non Icteric Neck: Supple, Good ROM, No Lymph Node Enlargement Lungs: Clear to auscultation Cardiovascular: Regular Rhythm, Normal S1, Normal S2, No Murmurs, No Rubs, No Gallops Vascular: No Carotid Bruits, Normal Femoral Pulses, Normal Radial Pulses, Normal Dorsalis Pedal Pulse, Normal Posterior Tibial Pulses Abdomen: Bowel Sounds Present, Soft, Non Tender, No HSM, No Organomegaly Extremities: No Cyanosis, No Clubbing, No edema Neurological: No Focal Motor or Sensory Deficit Rhythm: EKG: ECHO: Stress Test: Cardiac Cath: PCI: CT Surgery: Holter monitor: EPS: PPM: CXR: Chest CT Scan: Assessment/Plan 1. TIA: The patient had a TIA with CT evaluation confirming this. His symptoms have completely abated. Patient does not appear to be a candidate for MRI given his defibrillator and pacemaker. I requested that he have a repeat interrogation of his pacemaker particularly of the atrial lead to document as detected on telemetry. Given the patient's history of severe LV dysfunction, atrial flutter, paroxysmal atrial fibrillation and now TIA I would recommend long-term anticoagulation therapy with baby aspirin and either Coumadin or Eliquis. In addition, given the patient's severe LV dysfunction, and pulmonary hypertension, he will require lifelong anticoagulation. 2. Ischemic cardiomyopathy: Patient has a history of ischemic cardiomyopathy status post defibrillator placement after his bypass surgery. His most recent echocardiogram showed an EF approximating 55% but now his EF appears to be 25%. I would not recommend catheterization at this time in the face of a recent TIA/CVA although this may be necessary in the future to check the patient's grafts which are approximately 7 years old. Would not recommend stress testing in the face of a recent TIA. Recommend continuing the patient on current antihypertensive therapy with Coreg 12.5 mg p.o. twice daily. If it is detected the patient has had recurrent ventricular arrhythmias, he may benefit from the addition of amiodarone therapy for both atrial and ventricular rhythm control. 3. Hyperlipidemia: I do not see the patient is on a statin based medication, and he appears to have no known drug allergies to this. Recommend starting Lipitor 40 mg p.o. nightly and repeating his lipid profile in 6 weeks time. We will obtain baseline fasting lipid profile on this admission. 4. Thank you very much for the opportunity to participate in the cardiac care of your patient. Consultation time took place between 230 and 3:10 PM. Patient will follow-up with Dr. Tineo going forward. Code Visit Inpatient E&M: 71645 Init Hosp L2
--- NOTE | 2018-01-31 15:09 | CON.PCM_ITS ---
Problem List (1) TIA (transient ischemic attack) Status: Acute Qualifiers: Transient cerebral ischemia type: unspecified Qualified Code(s): G45.9 - Transient cerebral ischemic attack, unspecified (2) Presence of implantable cardioverter-defibrillator (ICD) Status: Chronic (3) Atherosclerotic heart disease of [place] coronary artery without angina pectoris Status: Chronic Qualifiers: [place] vs. transplanted heart: unspecified whether [place] or transplanted heart Qualified Code(s): I25.10 - Atherosclerotic heart disease of [place] coronary artery without angina pectoris Comment: CABG X 3 11/24/10 (4) Hyperlipidemia Status: Chronic Qualifiers: Hyperlipidemia type: unspecified Qualified Code(s): E78.5 - Hyperlipidemia , unspecified (5) Ischemic cardiomyopathy Status: Chronic (6) Abnormal electrocardiogram [ECG] [EKG] Status: Chronic (7) Paroxysmal atrial fibrillation Status: Chronic (8) HTN (hypertension) Status: Chronic Qualifiers: Hypertension type: essential hypertension Qualified Code(s): I10 - Essential (primary) hypertension (9) S/P CABG x 3 Status: Chronic Comment: CABG X 3v 11/24/10: MENDOZA to LAD,SVG to Diagonal branch of LAD and posterolateral cx (10) Pacemaker Status: Chronic Reason for Consult Date of Consultation: 01/31/18 Reason for Consultation: TIA/C [place], coronary disease status post CABG, paroxysmal atrial fibrillation, ischemic cardiomyopathy, LV dysfunction, hypertension, hypercholesterolemia History of Present Illness: The patient is a 82 year old M patient of Dr. Chirinos with a history of hypertension, hypercholesterolemia, coronary artery disease status post three- vessel bypass surgery at [facility] in 2010. The patient had subsequent diagnosis of severe cardiomyopathy requiring AICD placement by Dr. Bronson at [facility] soon thereafter. In addition the patient has had interrogations of his pacemaker detecting periodic atrial flutter and atrial fibrillation in the past. Patient was in normal health up until this morning when he developed slurring of his speech, and difficulty speaking as well as numbness in his tongue. He immediately identified that he could be a stroke and came to the emergency room. A stroke team was called, and after medical therapy the patient's speech returned back to normal. At no time did he have any chest pain, angina, shortness of breath or dyspnea on exertion. During his stay in the emergency room apparently his telemetry indicated he had periods of atrial fibrillation although this was not printed out or documented to the best of my knowledge. For this reason neurology recommended a cardiology consultation. The patient just had his defibrillator interrogated this past Monday, and he does have an atrial lead. That report is not been placed in the computer as of yet. He does carry with him a history of atrial fibrillation. An echocardiogram done in the ER showed severe global LV dysfunction with an EF around 25%, mild mitral regurgitation, trivial aortic insufficiency, and an RVSP of approximately 49 mmHg. His previous echocardiogram on 02/24/14 suggested an EF around 55%. His EKG on admission showed normal sinus rhythm with occasional paced ventricular beat. Telemetry shows normal sinus rhythm, occasional pacemaker mediated tachycardia, and occasional atrial fibrillation. He is currently resting comfortably. On further history prior to his event he denies any change in his exercise capacity, chest pain, angina, shortness of breath or dyspnea on exertion. He is compliant with his medications. [] Past Medical History Allergies/Adverse Reactions: Allergies No Known Allergies Allergy (Verified 01/31/18 08:49) Home Medications: Ambulatory Orders Medication Instructions Recorded Aspirin [Aspirin, Baby] 81 mg PO DAILY@0800 02/16/17 [place] Q Plus 1 tab PO BID 02/17/17 Carvedilol [Coreg (Beta Srinivasa)] 12.5 mg PO BID 01/31/18 Past Medical History (Chronic Problems): Chronic Problems (Last Reviewed 10/17/17 @ 09:29 by Ten Tineo MD) Presence of implantable cardioverter-defibrillator (ICD) (Chronic) Atherosclerotic heart disease of [place] coronary artery without angina pectoris (Chronic) CABG X 3 11/24/10 Hyperlipidemia (Chronic) Ischemic cardiomyopathy (Chronic) Abnormal electrocardiogram [ECG] [EKG] (Chronic) Biventricular automatic implantable cardioverter defibrillator in situ (Chronic) ICD Implant 05/25/11 Paroxysmal atrial fibrillation (Chronic) Palpitations (Chronic) CKD (chronic kidney disease) stage 3, GFR 30-59 ml/min (Chronic) Baseline Cr 1.2-1.4 HTN (hypertension) (Chronic) S/P CABG x 3 (Chronic) CABG X 3v 11/24/10: MENDOZA to LAD,SVG to Diagonal branch of LAD and posterolateral cx Pacemaker (Chronic) Conduction disorder, unspecified (Chronic) Surgical History: coronary bypass surgery, pacemaker implantation, - - CABG x 3 , AICD/Pacemaker, R inguinal hernia x 2, L inguinal hernia x 1, Possible femoral hernia x 1 per description. Psychiatric History: No pertinent psych hx - *Family History Paternal Family History: Family History (Last Reviewed 10/17/17 @ 09:29 by Ten Tineo MD) Father CAD (coronary artery disease), Onset Age: 55 Mother No problems noted. Brother CAD (coronary artery disease) History of coronary artery bypass graft x 3 Brother Cancer Brother Unknown whether patient has any health problems Brother No problems noted. History Items: Heart Disease Maternal Family History: Family History (Last Reviewed 10/17/17 @ 09:29 by Ten Tineo MD) Father CAD (coronary artery disease), Onset Age: 55 Mother No problems noted. Brother CAD (coronary artery disease) History of coronary artery bypass graft x 3 Brother Cancer Brother Unknown whether patient has any health problems Brother No problems noted. History Items: No pertinent history Lives: Spouse/ Significant Other Smoking Status: Never smoker Tobacco Use: Non-smoker Alcohol: None Drugs: None Review of Systems - Review of Systems General: Denies: Fever, Night Sweats, Fatigue Cardiovascular: Denies: Chest Discomfort, Shortness of Breath, Orthopnea, PND, Peripheral Edema, Palpitations, Lightheadedness, Dizziness, Near Syncope, Syncope Respiratory: Denies: Cough, Sputum Production, Hemoptysis Gastrointestinal: Denies: Hematemesis, Hematochezia, Melena Genitourinary: Denies: Dysuria, Hematuria Skin: Denies: Rash Neurological: Reports: Numbness Subjectve: Patient resting comfortably, no acute distress. Objective: Vital Signs Temp Pulse Resp BP Pulse Ox 98.1 F 65 16 126/66 H 94 01/31/18 13:21 01/31/18 13:21 01/31/18 13:21 01/31/18 13:21 01/31/18 13:21 Oxygen Delivery Method Room Air Weight: 170 lb Body Mass Index (BMI) 23.7 General: Awake, Alert, Oriented x 3 HEENT: PERRL, EOMI, Sclera Non Icteric Neck: Supple, Good ROM, No Lymph Node Enlargement Lungs: Clear to auscultation Cardiovascular: Regular Rhythm, Normal S1, Normal S2, No Murmurs, No Rubs, No Gallops Vascular: No Carotid Bruits, Normal Femoral Pulses, Normal Radial Pulses, Normal Dorsalis Pedal Pulse, Normal Posterior Tibial Pulses Abdomen: Bowel Sounds Present, Soft, Non Tender, No HSM, No Organomegaly Extremities: No Cyanosis, No Clubbing, No edema Neurological: No Focal Motor or Sensory Deficit Rhythm: EKG: ECHO: Stress Test: Cardiac Cath: PCI: CT Surgery: Holter monitor: EPS: PPM: CXR: Chest CT Scan: Assessment/Plan 1. TIA: The patient had a TIA with CT evaluation confirming this. His symptoms have completely abated. Patient does not appear to be a candidate for MRI given his defibrillator and pacemaker. I requested that he have a repeat interrogation of his pacemaker particularly of the atrial lead to document as detected on telemetry. Given the patient's history of severe LV dysfunction, atrial flutter, paroxysmal atrial fibrillation and now TIA I would recommend long-term anticoagulation therapy with baby aspirin and either Coumadin or Eliquis. In addition, given the patient's severe LV dysfunction, and pulmonary hypertension, he will require lifelong anticoagulation. 2. Ischemic cardiomyopathy: Patient has a history of ischemic cardiomyopathy status post defibrillator placement after his bypass surgery. His most recent echocardiogram showed an EF approximating 55% but now his EF appears to be 25%. I would not recommend catheterization at this time in the face of a recent TIA /CVA although this may be necessary in the future to check the patient's grafts which are approximately 7 years old. Would not recommend stress testing in the face of a recent TIA. Recommend continuing the patient on current antihypertensive therapy with Coreg 12.5 mg p.o. twice daily. If it is detected the patient has had recurrent ventricular arrhythmias, he may benefit from the addition of amiodarone therapy for both atrial and ventricular rhythm control. 3. Hyperlipidemia: I do not see the patient is on a statin based medication, and he appears to have no known drug allergies to this. Recommend starting Lipitor 40 mg p.o. nightly and repeating his lipid profile in 6 weeks time. We will obtain baseline fasting lipid profile on this admission. 4. Thank you very much for the opportunity to participate in the cardiac care of your patient. Consultation time took place between 230 and 3:10 PM. Patient will follow-up with Dr. Tineo going forward. Code Visit Inpatient E&M: 27228 Init Hosp L2
--- NOTE | 2018-01-31 15:16 | PCM.CONS.GEN ---
Problem List (1) TIA (transient ischemic attack) Status: Acute Qualifiers: Transient cerebral ischemia type: unspecified Qualified Code(s): G45.9 - Transient cerebral ischemic attack, unspecified Reason for Consult Date of Consultation: 01/31/18 Reason for Consultation: TIA History of Present Illness: The patient is a 82 year old CM with PMH HTN, HLD, PAF not on AC, ischemic cardiomyopathy s/p CABG, s/p AICD and CKD admitted with speech disturbances. Per patient he woke up this morning (01/31/18) around 5 am, was normal and then around 7 am had numbness in the tongue and has speech disturbances, could not get his words out, denies any focal motor weakness, visual disturbances, DUMONT or sensory loss. The episode lasted for about 1 hr per patient, had left facial droop per ED documentation on arrival, on admission his NIHSS was about [address] head reported to show possible hyperdense right MCA sign but CTA head/neck did not show any hemodynamically significant occlusion or stenosis. Started on Eliquis since admission. At present patient is at his baseline, denies any DUMONT, visual disturbances, focal motor weakness or sensory loss. Denies any frequent falls, does not use cane or walker to ambulate, does drive and does not need any assistance for his ADLs. [] Past Medical History Past Medical History (Chronic Problems): Chronic Problems (Last Reviewed 10/17/17 @ 09:29 by Ten Tineo MD) Presence of implantable cardioverter-defibrillator (ICD) (Chronic) Atherosclerotic heart disease of [place] coronary artery without angina pectoris (Chronic) CABG X 3 11/24/10 Hyperlipidemia (Chronic) Ischemic cardiomyopathy (Chronic) Abnormal electrocardiogram [ECG] [EKG] (Chronic) Biventricular automatic implantable cardioverter defibrillator in situ (Chronic) ICD Implant 05/25/11 Paroxysmal atrial fibrillation (Chronic) Palpitations (Chronic) CKD (chronic kidney disease) stage 3, GFR 30-59 ml/min (Chronic) Baseline Cr 1.2-1.4 HTN (hypertension) (Chronic) S/P CABG x 3 (Chronic) CABG X 3v 11/24/10: MENDOZA to LAD,SVG to Diagonal branch of LAD and posterolateral cx Pacemaker (Chronic) Conduction disorder, unspecified (Chronic) Medical History: Medical History (Last Reviewed 10/17/17 @ 09:29 by Ten Tineo MD) Atherosclerotic heart disease of [place] coronary artery without angina pectoris (Chronic) I25.10 CABG X 3 11/24/10 Hyperlipidemia (Chronic) E78.5 Ischemic cardiomyopathy (Chronic) I25.5 Abnormal electrocardiogram [ECG] [EKG] (Chronic) R94.31 Paroxysmal atrial fibrillation (Chronic) I48.0 Palpitations (Chronic) R00.2 HTN (hypertension) (Chronic) I10 Pacemaker (Chronic) Z95.0 Encounter for long-term current use of high risk medication Z79.899 Allergies No Known Allergies Allergy (Verified 01/31/18 08:49) Home Medications: Ambulatory Orders Medication Instructions Recorded Aspirin [Aspirin, Baby] 81 mg PO DAILY@0800 02/16/17 [place] Q Plus 1 tab PO BID 02/17/17 Carvedilol [Coreg (Beta Srinivasa)] 12.5 mg PO BID 01/31/18 Surgical History: Surgical History (Last Updated 11/03/17 @ 18:49 by Tamara Nino) Presence of implantable cardioverter-defibrillator (ICD) (Chronic) Z95.810 Biventricular automatic implantable cardioverter defibrillator in situ (Chronic) Z95.810 ICD Implant 05/25/11 S/P CABG x 3 (Chronic) Z95.1 CABG X 3v 11/24/10: MENDOZA to LAD,SVG to Diagonal branch of LAD and posterolateral cx Surgical History: coronary bypass surgery, pacemaker implantation, - - CABG x 3, AICD/Pacemaker, R inguinal hernia x 2, L inguinal hernia x 1, Possible femoral hernia x 1 per description. Psychiatric History: No pertinent psych hx Lives: Spouse/ Significant Other Smoking Status: Never smoker Tobacco Use: Non-smoker Alcohol: None Drugs: None - *Family History Paternal Family History: Family History (Last Reviewed 10/17/17 @ 09:29 by Ten Tineo MD) Father CAD (coronary artery disease), Onset Age: 55 Mother No problems noted. Brother CAD (coronary artery disease) History of coronary artery bypass graft x 3 Brother Cancer Brother Unknown whether patient has any health problems Brother No problems noted. History Items: Heart Disease Maternal Family History: Family History (Last Reviewed 10/17/17 @ 09:29 by Ten Tineo MD) Father CAD (coronary artery disease), Onset Age: 55 Mother No problems noted. Brother CAD (coronary artery disease) History of coronary artery bypass graft x 3 Brother Cancer Brother Unknown whether patient has any health problems Brother No problems noted. History Items: No pertinent history Review of Systems Constitutional: Reports: - - complete ROS negative except as documented in HPI Patient Problems: Active and Suspected Problems (Last Reviewed 10/17/17 @ 09:29 by Ten Tineo MD) TIA (transient ischemic attack) (Acute) - Physical Exam General: Alert HEENT: Normocephalic Neck: Supple Lungs: Clear to auscultation Cardiovascular: Normal S1, Normal S2 Extremities: No cyanosis Musculoskeletal: No Tenderness to Palpation of Joints or Extremities Neurological: - - consious, alert, AoAx3, CN 2-12 grossly intact, power 5/5 all 4 extremities, no sensory loss, no cerebellar signs, no dysarthria or aphasia at present, Reflexes + B/L B/S/T/K/A, gait deferred, NIHSS 0, mRS 0 at present. Psych/Mental Status: Normal Affect Vital Signs Temp Pulse Resp BP Pulse Ox 98.1 F 65 16 126/66 H 94 01/31/18 13:21 01/31/18 13:21 01/31/18 13:21 01/31/18 13:21 01/31/18 13:21 Oxygen Delivery Method Room Air Weight: 77.111 kg Body Mass Index (BMI) 23.7 Assessment/Plan All Active Problems (Last Reviewed 10/17/17 @ 09:29 by Ten Tineo MD) TIA (transient ischemic attack) (Acute) Generalized weakness (Acute) Dyspnea on exertion (Acute) Healthcare-associated pneumonia (Acute) Ataxia (Acute) The patient is a 82 year old CM with PMH HTN, HLD, PAF not on AC, ischemic cardiomyopathy s/p CABG, s/p AICD and CKD admitted with speech disturbances. Per patient he woke up this morning (01/31/18) around 5 am, was normal and then around 7 am had numbness in the tongue and has speech disturbances, could not get his words out, denies any focal motor weakness, visual disturbances, DUMONT or sensory loss. The episode lasted for about 1 hr per patient, had left facial droop per ED documentation on arrival, on admission his NIHSS was about [address] head reported to show possible hyperdense right MCA sign but CTA head/neck did not show any hemodynamically significant occlusion or stenosis. Started on Eliquis since admission. At present patient is at his baseline, denies any DUMONT, visual disturbances, focal motor weakness or sensory loss. Denies any frequent falls, does not use cane or walker to ambulate, does drive and does not need any assistance for his ADLs. Impression Probable TIA Plan -Recommend repeat CT head in 24 hrs -Started on Eliquis 2.5 mg PO BID per Cardiology/primary team for PAfib. Bleeding risks discussed -On Lipitor 40 mg PO q hs -MRI brain- cannot be done due to AICD -CTH-? right MCA hyperdense sign. -CTA head/neck reviewed-B/L ICA < 50% stenosis -Labs reviewed -LDL, Hba1c -TTE-EF 25%, severely dilated LA -Stroke risk factors discussed and stroke education provided -PT/OT/ST -Fall precautions -GI/DVT prophylaxis -Follow up with Neurology in 2-3 weeks as outpatient. -Please call with questions if any -Thank you for allowing us to participate in patient's care and management I spent 60 minutes taking history, doing physical examination, reviewing medical records, coordinating care and counseling patient and available family. Code Visit Inpatient E&M: 24466 Init Hosp L3
--- NOTE | 2018-01-31 15:27 | CON.PCM_ITS ---
Problem List (1) TIA (transient ischemic attack) Status: Acute Qualifiers: Transient cerebral ischemia type: unspecified Qualified Code(s): G45.9 - Transient cerebral ischemic attack, unspecified Reason for Consult Date of Consultation: 01/31/18 Reason for Consultation: TIA History of Present Illness: The patient is a 82 year old CM with PMH HTN, HLD, PAF not on AC, ischemic cardiomyopathy s/p CABG, s/p AICD and CKD admitted with speech disturbances. Per patient he woke up this morning (01/31/18) around 5 am, was normal and then around 7 am had numbness in the tongue and has speech disturbances, could not get his words out, denies any focal motor weakness, visual disturbances, DUMONT or sensory loss. The episode lasted for about 1 hr per patient, had left facial droop per ED documentation on arrival, on admission his NIHSS was about [address] head reported to show possible hyperdense right MCA sign but CTA head/neck did not show any hemodynamically significant occlusion or stenosis. Started on Eliquis since admission. At present patient is at his baseline, denies any DUMONT, visual disturbances, focal motor weakness or sensory loss. Denies any frequent falls, does not use cane or walker to ambulate, does drive and does not need any assistance for his ADLs. [] Past Medical History Past Medical History (Chronic Problems): Chronic Problems (Last Reviewed 10/17/17 @ 09:29 by Ten Tineo MD) Presence of implantable cardioverter-defibrillator (ICD) (Chronic) Atherosclerotic heart disease of [place] coronary artery without angina pectoris (Chronic) CABG X 3 11/24/10 Hyperlipidemia (Chronic) Ischemic cardiomyopathy (Chronic) Abnormal electrocardiogram [ECG] [EKG] (Chronic) Biventricular automatic implantable cardioverter defibrillator in situ (Chronic) ICD Implant 05/25/11 Paroxysmal atrial fibrillation (Chronic) Palpitations (Chronic) CKD (chronic kidney disease) stage 3, GFR 30-59 ml/min (Chronic) Baseline Cr 1.2-1.4 HTN (hypertension) (Chronic) S/P CABG x 3 (Chronic) CABG X 3v 11/24/10: MENDOZA to LAD,SVG to Diagonal branch of LAD and posterolateral cx Pacemaker (Chronic) Conduction disorder, unspecified (Chronic) Medical History: Medical History (Last Reviewed 10/17/17 @ 09:29 by Ten Tineo MD) Atherosclerotic heart disease of [place] coronary artery without angina pectoris (Chronic) I25.10 CABG X 3 11/24/10 Hyperlipidemia (Chronic) E78.5 Ischemic cardiomyopathy (Chronic) I25.5 Abnormal electrocardiogram [ECG] [EKG] (Chronic) R94.31 Paroxysmal atrial fibrillation (Chronic) I48.0 Palpitations (Chronic) R00.2 HTN (hypertension) (Chronic) I10 Pacemaker (Chronic) Z95.0 Encounter for long-term current use of high risk medication Z79.899 Allergies No Known Allergies Allergy (Verified 01/31/18 08:49) Home Medications: Ambulatory Orders Medication Instructions Recorded Aspirin [Aspirin, Baby] 81 mg PO DAILY@0800 02/16/17 [place] Q Plus 1 tab PO BID 02/17/17 Carvedilol [Coreg (Beta Srinivasa)] 12.5 mg PO BID 01/31/18 Surgical History: Surgical History (Last Updated 11/03/17 @ 18:49 by Tamara Nino) Presence of implantable cardioverter-defibrillator (ICD) (Chronic) Z95.810 Biventricular automatic implantable cardioverter defibrillator in situ (Chronic ) Z95.810 ICD Implant 05/25/11 S/P CABG x 3 (Chronic) Z95.1 CABG X 3v 11/24/10: MENDOZA to LAD,SVG to Diagonal branch of LAD and posterolateral cx Surgical History: coronary bypass surgery, pacemaker implantation, - - CABG x 3 , AICD/Pacemaker, R inguinal hernia x 2, L inguinal hernia x 1, Possible femoral hernia x 1 per description. Psychiatric History: No pertinent psych hx Lives: Spouse/ Significant Other Smoking Status: Never smoker Tobacco Use: Non-smoker Alcohol: None Drugs: None - *Family History Paternal Family History: Family History (Last Reviewed 10/17/17 @ 09:29 by Ten Tineo MD) Father CAD (coronary artery disease), Onset Age: 55 Mother No problems noted. Brother CAD (coronary artery disease) History of coronary artery bypass graft x 3 Brother Cancer Brother Unknown whether patient has any health problems Brother No problems noted. History Items: Heart Disease Maternal Family History: Family History (Last Reviewed 10/17/17 @ 09:29 by Ten Tineo MD) Father CAD (coronary artery disease), Onset Age: 55 Mother No problems noted. Brother CAD (coronary artery disease) History of coronary artery bypass graft x 3 Brother Cancer Brother Unknown whether patient has any health problems Brother No problems noted. History Items: No pertinent history Review of Systems Constitutional: Reports: - - complete ROS negative except as documented in HPI Patient Problems: Active and Suspected Problems (Last Reviewed 10/17/17 @ 09:29 by Ten Tineo MD ) TIA (transient ischemic attack) (Acute) - Physical Exam General: Alert HEENT: Normocephalic Neck: Supple Lungs: Clear to auscultation Cardiovascular: Normal S1, Normal S2 Extremities: No cyanosis Musculoskeletal: No Tenderness to Palpation of Joints or Extremities Neurological: - - consious, alert, AoAx3, CN 2-12 grossly intact, power 5/5 all 4 extremities, no sensory loss, no cerebellar signs, no dysarthria or aphasia at present, Reflexes + B/L B/S/T/K/A, gait deferred, NIHSS 0, mRS 0 at present. Psych/Mental Status: Normal Affect Vital Signs Temp Pulse Resp BP Pulse Ox 98.1 F 65 16 126/66 H 94 01/31/18 13:21 01/31/18 13:21 01/31/18 13:21 01/31/18 13:21 01/31/18 13:21 Oxygen Delivery Method Room Air Weight: 77.111 kg Body Mass Index (BMI) 23.7 Assessment/Plan All Active Problems (Last Reviewed 10/17/17 @ 09:29 by Ten Tineo MD) TIA (transient ischemic attack) (Acute) Generalized weakness (Acute) Dyspnea on exertion (Acute) Healthcare-associated pneumonia (Acute) Ataxia (Acute) The patient is a 82 year old CM with PMH HTN, HLD, PAF not on AC, ischemic cardiomyopathy s/p CABG, s/p AICD and CKD admitted with speech disturbances. Per patient he woke up this morning (01/31/18) around 5 am, was normal and then around 7 am had numbness in the tongue and has speech disturbances, could not get his words out, denies any focal motor weakness, visual disturbances, DUMONT or sensory loss. The episode lasted for about 1 hr per patient, had left facial droop per ED documentation on arrival, on admission his NIHSS was about [address] head reported to show possible hyperdense right MCA sign but CTA head/neck did not show any hemodynamically significant occlusion or stenosis. Started on Eliquis since admission. At present patient is at his baseline, denies any DUMONT, visual disturbances, focal motor weakness or sensory loss. Denies any frequent falls, does not use cane or walker to ambulate, does drive and does not need any assistance for his ADLs. Impression Probable TIA Plan -Recommend repeat CT head in 24 hrs -Started on Eliquis 2.5 mg PO BID per Cardiology/primary team for PAfib. Bleeding risks discussed -On Lipitor 40 mg PO q hs -MRI brain- cannot be done due to AICD -CTH-? right MCA hyperdense sign. -CTA head/neck reviewed-B/L ICA < 50% stenosis -Labs reviewed -LDL, Hba1c -TTE-EF 25%, severely dilated LA -Stroke risk factors discussed and stroke education provided -PT/OT/ST -Fall precautions -GI/DVT prophylaxis -Follow up with Neurology in 2-3 weeks as outpatient. -Please call with questions if any -Thank you for allowing us to participate in patient's care and management I spent 60 minutes taking history, doing physical examination, reviewing medical records, coordinating care and counseling patient and available family. Code Visit Inpatient E&M: [id number] Init Hosp L3
[2018-01-31 16:03] LABS: Cholesterol 163 mg/dL (200); High Density Lipoprotein 41 mg/dL; Triglycerides 112 mg/dL; Very Low Density Lipoprotein 22 mg/dL (5-40)
--- NOTE | 2018-01-31 16:19 | PCM.PACRNU ---
Pacer Nurse Hospital Visit Notes: Dual Chamber ICD Evaluation: Interrogation completed at bedside PCU #103 per MD order for possible TIA/stroke. Interrogation shows no VT/VF episodes and 18 MS episodes, 34% total time since last check on 01/29/18. @ episodes <24 hrs duration, 13 episodes <1 hr and 3 episodes <1 min. Stored e-grams available for review show atrial flutter with appropriate MS. Pt on 81mg Aspirin. Left pectoral pocket/incision w/o s/s of infection or erosion. Pt came to ER d/t slurred speech which has since resolved. Presenting rhythm shows NSR @ 75 bpm. 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 Estimated battery life 5 yrs. Lead impedances and sensing stable. Threshold testing not completed today just done on 01/29/18. No parameter changes made. Counters cleared. Dr. Fried notified of above. Marlee Nino RN - Pacer Check Procedure Procedures: [id number] ICD Eval Dual
[2018-01-31] MEDS: APIXABAN 2.5 MG TABLET PO (21:37)
[2018-01-31] MEDS: Atorvastatin Calcium 40 MG Tablet PO (21:37)
[2018-01-31] MEDS: Carvedilol 12.5 MG Tablet PO (21:38)
[2018-01-31] MEDS: Pantoprazole Sodium 20 MG Tablet PO (21:38)
[2018-02-01] VITALS (7 sets, daily range): BP systolic 107–116; BP diastolic 62–68; PULSE 64–80; RESP 16–18; TEMP 36.7–37; O2SAT 93–96; BMI 23.7
[2018-02-01] MEDS: 0.9% Normal Saline 1,000 ML 75 ML IV (02:51)
--- NOTE | 2018-02-01 05:55 | RAD_ITS ---
STUDY: X-RAY CHEST REASON FOR EXAM: Male, 82 years old. Shortness of breath. TECHNIQUE: PA and lateral views of the chest. COMPARISON: Comparison is made with prior study dated January 31, 2018. FINDINGS: EKG electrodes are seen. Hyperinflation. Mild increased markings in the right midlung. This has improved. There is no demonstrated pleural abnormality. Sternal cerclage wires and vascular clips are present from a prior sternotomy and coronary artery bypass graft procedure (CABG). A left-sided dual-chamber pacemaker is seen. Normal mediastinum and yony. Normal visualized pulmonary arteries. There is atherosclerotic calcification of the aortic arch with tortuosity. Normal visualized thoracic spine. There is degenerative osteoarthritis of the bilateral shoulders. Stable soft tissue calcification overlying the left shoulder. There is no demonstrated abnormality of the visualized soft tissue structures of the upper abdomen. RAD/Chest PA and Lateral IMPRESSION: Mild residual increased markings in the right midlung. Electronically Signed: Nick Sylvester MD at 10:36 EDT Tel [phone], Service support ,
[2018-02-01 06:04] LABS: Hematocrit 35.9 % (40-54); Hemoglobin 11.8 g/dl (13.0-16.5); Mean Corp Hgb Conc 32.9 g/gl (32-36); Mean Corpuscular Hgb 28.6 pg (27.0-32.0); Mean Corpuscular Volume 87.1 fL (80-94); Mean Platelet Vol. 8.4 fl (6.2-12.0); Platelet Count 258 K/mm3 (150-450); RBC Distribution Width SD 43.8 fl (35.1-43.9); Red Blood Count 4.12 M/mm3 (4.6-6.2); White Blood Count 11.5 K/mm3 (4.4-11.0)
[2018-02-01 06:07] LABS: Scan Indicated on CBC? Y/N NO
[2018-02-01 06:19] LABS: Anion Gap 6 (5-15); BUN 24 mg/dL (7-18); BUN/Creat Ratio 15.5 RATIO (10-20); Calcium,Total 7.9 mg/dL (8.5-10.1); Chloride 108 mmol/L (98-107); Cholesterol 145 mg/dL (200); Creatinine, Serum 1.55 mg/dL (0.70-1.30); EST Glomerular Filtration Rate 46 mL/min (>60); Est Glom Filt Rate - Afr Amer 56 mL/min (>60); Estimated Creatinine Clearance 39.81 ml/min; Glucose 93 mg/dL (74-106); High Density Lipoprotein 34 mg/dL; Potassium 4.8 mmol/L (3.5-5.1); Sodium Level 141 mmol/L (136-145); Triglycerides 110 mg/dL; Very Low Density Lipoprotein 22 mg/dL (5-40)
--- NOTE | 2018-02-01 08:00 | CT_ITS ---
STUDY: CT BRAIN WITHOUT CONTRAST REASON FOR EXAM: Male, 82 years old. Left facial droop and slurred speech. RADIATION DOSAGE (If Supplied By Facility): CTDIvol = ( 44.99 ) mGy, DLP = ( 796.11 ) mGycm TECHNIQUE: Transaxial CT imaging of the brain was performed without administration of intravenous contrast material. Individualized dose optimization techniques were used for this CT. COMPARISON: Comparison is made with prior study dated January 31, 2018. FINDINGS: Normal soft tissue structures. Normal calvarium. There is mild cerebral atrophy with widening of the extra-axial spaces and ventricular dilatation. There are areas of decreased attenuation within the white matter tracts of the supratentorial brain, consistent with microvascular disease changes. Tiny old lacunar infarct in the anterior aspect of the left insular cortex of the temporal lobe. Normal basal ganglia and thalami. Normal brainstem. Normal cerebellum. There is no intracranial hemorrhage. There are no findings of an acute ischemic infarction. Atherosclerotic calcification of the vertebral arteries and cavernous portions of the internal carotid arteries bilaterally. Normal visualized paranasal sinuses. CT/Brain/Head without Contrast IMPRESSION: Chronic involutional changes of the brain. No acute abnormality is seen. Electronically Signed: Nick Sylvester MD at 8:56 EDT Tel [phone], Service support ,
--- NOTE | 2018-02-01 08:04 | PCM.PN.CARD ---
Subjectve: Patient seen and evaluated. Appears to be doing better this morning with no complaints. Objective: Vital Signs Temp Pulse Resp BP Pulse Ox 98.6 F 69 16 116/68 96 02/01/18 05:25 02/01/18 07:05 02/01/18 05:25 02/01/18 05:25 02/01/18 05:25 Oxygen Delivery Method Room Air Weight: 170 lb Body Mass Index (BMI) 23.7 Intake and Output for Last 24 Hours 01/30/18 01/31/18 02/01/18 23:59 23:59 23:59 Intake Total 539 / 539 1241 / 1241 Balance 539 / 539 1241 / 1241 General: Awake, Alert, Oriented x 3 HEENT: PERRL, EOMI, Sclera Non Icteric Neck: Supple, Good ROM, No Lymph Node Enlargement Lungs: Clear to auscultation Cardiovascular: Regular Rhythm, Normal S1, Normal S2, No Murmurs, No Rubs, No Gallops Vascular: No Carotid Bruits, Normal Femoral Pulses, Normal Radial Pulses, Normal Dorsalis Pedal Pulse, Normal Posterior Tibial Pulses Abdomen: Bowel Sounds Present, Soft, Non Tender, No HSM, No Organomegaly Extremities: No Cyanosis, No Clubbing, No edema Neurological: No Focal Motor or Sensory Deficit 02/01/18 05:10: WBC 11.5 H, RBC 4.12 L, Hgb 11.8 L, Hct 35.9 L, MCV 87.1, MCH 28.6, MCHC 32.9, RDW 14.0, RDW Differential 43.8, Plt Count 258, MPV 8.4 02/01/18 05:10: Sodium 141, Potassium 4.8, Chloride 108 H, Carbon Dioxide 27.0, Anion Gap 6, BUN 24 H, Creatinine 1.55 H, Est GFR (MDRD) Af Amer 56 L, Est GFR (MDRD) Non-Af 46 L, BUN/Creatinine Ratio 15.5, Glucose 93, Calcium 7.9 L, Triglycerides 110, Cholesterol 145, LDL Cholesterol 89, VLDL Cholesterol 22, HDL Cholesterol 34 L Rhythm: EKG: ECHO: Stress Test: Cardiac Cath: PCI: CT Surgery: Holter monitor: EPS: PPM: CXR: Chest CT Scan: Medical Necessity - Tobacco Use Smoking Status: Never smoker Tobacco Use: Non-smoker Assessment/Plan 1. TIA: The patient had a TIA with CT evaluation confirming this. His symptoms have completely abated. Patient does not appear to be a candidate for MRI given his defibrillator and pacemaker. Given the patient's history of severe LV dysfunction, atrial flutter, paroxysmal atrial fibrillation and now TIA I would recommend long-term anticoagulation therapy with baby aspirin and either Coumadin or Eliquis. 2. Ischemic cardiomyopathy: Patient has a history of ischemic cardiomyopathy status post defibrillator placement after his bypass surgery. His most recent echocardiogram showed an EF approximating 55% but now his EF appears to be 25%. I would not recommend catheterization at this time in the face of a recent TIA/CVA although this may be necessary in the future to check the patient's grafts which are approximately 7 years old. His echocardiogram was reviewed and there is a clear change in his left ventricular ejection fraction. A pharmacologic myocardial perfusion stress test should be performed to look for any area of ischemia. It is possible that this may also be due to a tachycardia mediated cardiomyopathy due to intermittent atrial fibrillation.(unlikely) 3. Hyperlipidemia: The patient had previously not wanted to be on a statin but he has been convinced especially because of the recent events. 4. Status post ICD implantation. Dual Chamber ICD Evaluation: Interrogation completed at bedside PCU #103 per MD order for possible TIA/stroke. Interrogation shows no VT/VF episodes and 18 MS episodes, 34% total time since last check on 01/29/18. @ episodes <24 hrs duration, 13 episodes <1 hr and 3 episodes <1 min. Stored e-grams available for review show atrial flutter with appropriate MS. Pt on 81mg Aspirin. Left pectoral pocket/incision w/o s/s of infection or erosion. Pt came to ER d/t slurred speech which has since resolved. Presenting rhythm shows NSR @ 75 bpm. GERIATRIC NURSE=31%, AP=1%. Estimated battery life 5 yrs. Lead impedances and sensing stable. Threshold testing not completed today just done on 01/29/18. No parameter changes made. Counters cleared. Thank you for allowing me to participate in the care of your patient. Please don't hesitate to call if any issues arise
--- NOTE | 2018-02-01 08:07 | PN.CARD_ITS ---
Subjectve: Patient seen and evaluated. Appears to be doing better this morning with no complaints. Objective: Vital Signs Temp Pulse Resp BP Pulse Ox 98.6 F 69 16 116/68 96 02/01/18 05:25 02/01/18 07:05 02/01/18 05:25 02/01/18 05:25 02/01/18 05:25 Oxygen Delivery Method Room Air Weight: 170 lb Body Mass Index (BMI) 23.7 Intake and Output for Last 24 Hours 01/30/18 01/31/18 02/01/18 23:59 23:59 23:59 Intake Total 539 / 539 1241 / 1241 Balance 539 / 539 1241 / 1241 General: Awake, Alert, Oriented x 3 HEENT: PERRL, EOMI, Sclera Non Icteric Neck: Supple, Good ROM, No Lymph Node Enlargement Lungs: Clear to auscultation Cardiovascular: Regular Rhythm, Normal S1, Normal S2, No Murmurs, No Rubs, No Gallops Vascular: No Carotid Bruits, Normal Femoral Pulses, Normal Radial Pulses, Normal Dorsalis Pedal Pulse, Normal Posterior Tibial Pulses Abdomen: Bowel Sounds Present, Soft, Non Tender, No HSM, No Organomegaly Extremities: No Cyanosis, No Clubbing, No edema Neurological: No Focal Motor or Sensory Deficit 02/01/18 05:10: WBC 11.5 H, RBC 4.12 L, Hgb 11.8 L, Hct 35.9 L, MCV 87.1, MCH 28.6, MCHC 32.9, RDW 14.0, RDW Differential 43.8, Plt Count 258, MPV 8.4 02/01/18 05:10: Sodium 141, Potassium 4.8, Chloride 108 H, Carbon Dioxide 27.0, Anion Gap 6, BUN 24 H, Creatinine 1.55 H, Est GFR (MDRD) Af Amer 56 L, Est GFR ( MDRD) Non-Af 46 L, BUN/Creatinine Ratio 15.5, Glucose 93, Calcium 7.9 L, Triglycerides 110, Cholesterol 145, LDL Cholesterol 89, VLDL Cholesterol 22, HDL Cholesterol 34 L Rhythm: EKG: ECHO: Stress Test: Cardiac Cath: PCI: CT Surgery: Holter monitor: EPS: PPM: CXR: Chest CT Scan: Medical Necessity - Tobacco Use Smoking Status: Never smoker Tobacco Use: Non-smoker Assessment/Plan 1. TIA: The patient had a TIA with CT evaluation confirming this. His symptoms have completely abated. Patient does not appear to be a candidate for MRI given his defibrillator and pacemaker. Given the patient's history of severe LV dysfunction, atrial flutter, paroxysmal atrial fibrillation and now TIA I would recommend long-term anticoagulation therapy with baby aspirin and either Coumadin or Eliquis. 2. Ischemic cardiomyopathy: Patient has a history of ischemic cardiomyopathy status post defibrillator placement after his bypass surgery. His most recent echocardiogram showed an EF approximating 55% but now his EF appears to be 25%. I would not recommend catheterization at this time in the face of a recent TIA /CVA although this may be necessary in the future to check the patient's grafts which are approximately 7 years old. His echocardiogram was reviewed and there is a clear change in his left ventricular ejection fraction. A pharmacologic myocardial perfusion stress test should be performed to look for any area of ischemia. It is possible that this may also be due to a tachycardia mediated cardiomyopathy due to intermittent atrial fibrillation.(unlikely) 3. Hyperlipidemia: The patient had previously not wanted to be on a statin but he has been convinced especially because of the recent events. 4. Status post ICD implantation. Dual Chamber ICD Evaluation: Interrogation completed at bedside PCU #103 per MD order for possible TIA/stroke. Interrogation shows no VT/VF episodes and 18 MS episodes, 34% total time since last check on 01/29/18. @ episodes <24 hrs duration, 13 episodes <1 hr and 3 episodes <1 min. Stored e-grams available for review show atrial flutter with appropriate MS. Pt on 81mg Aspirin. Left pectoral pocket/incision w/o s/s of infection or erosion. Pt came to ER d/t slurred speech which has since resolved. Presenting rhythm shows NSR @ 75 bpm. INTERMODAL DISPATCHER=31%, AP=1%. Estimated battery life 5 yrs. Lead impedances and sensing stable. Threshold testing not completed today just done on 01/29/18. No parameter changes made. Counters cleared. Thank you for allowing me to participate in the care of your patient. Please don't hesitate to call if any issues arise
[2018-02-01] MEDS: Aspirin 81 MG TAB.CHEW PO (09:21)
[2018-02-01] MEDS: Pantoprazole Sodium 20 MG Tablet PO (09:21)
[2018-02-01] MEDS: 0.9% NaCl Peripheral Flush Adult/Peds IV (11:10)
[2018-02-01] MEDS: Carvedilol 12.5 MG Tablet PO (11:10)
--- NOTE | 2018-02-01 11:51 | STRESSREP ---
Stress Test Report Pharmacologic myocardial perfusion stress test. 82-year-old man with a history of coronary artery disease and cardiomyopathy. Stress protocol: Resting EKG demonstrates normal sinus rhythm with a rate of 60 bpm normal intervals are noted resting blood pressure is 124/82 mmHg. 0.4 mg of regadenoson was infused per usual protocol followed by rapid intravenous saline flush injection continuous EKG monitoring was performed. Patient maintained sinus rhythm throughout the recording with occasional premature ventricular complexes noted. There were no ST or T-wave changes noted suggest abnormal flow reserve. The resting blood pressure is 124/82 with a final blood pressure 118/68. Myocardial perfusion protocol. 11.5 mCi of technetium 99m sestamibi was injected at rest. 0.4 mg of regadenoson was infused per usual protocol peak infusion 32.0 mCi of technetium 99m sestamibi was injected stress images were obtained stress and rest images were reconstructed and compared in the short axis vertical long horizontal long axis. Gated images were also obtained Perfusion SPECT analysis: Review of the stress images demonstrate evidence of reduced perfusion involving the basal to mid inferior wall. The inferior apical wall also has reduced perfusion. This appears to be is present on the stress and resting images. The inferior septal wall also has reduced perfusion on the stress and resting images. No significant improvement is noted suggest ischemia. Gated SPECT analysis: The gated ejection fraction is noted to be 54% with evidence of apical dyssynergy. Conclusion: Pharmacologic myocardial perfusion stress test with no evidence of ischemia. Previous basal inferior and apical inferior infarct cannot be completely excluded.
[2018-02-01] MEDS: APIXABAN 2.5 MG TABLET PO (12:12)
--- NOTE | 2018-02-01 13:51 | PCM.DC ---
- Discharge Diagnoses Current Active Problems: Current Active and Chronic Problems (Last Reviewed 10/17/17 @ 09:29 by Ten Tineo MD) TIA (transient ischemic attack) (Acute) You will use the following diet at home:: Cardiac Discharge Activity: Return to Normal Activity Call your doctor if you observe: Shortness of breath, Dizziness, Fainting spells, Chest pain, Increased palpitations (irregular heartbeat) Allergies/Adverse Reactions: Allergies No Known Allergies Allergy (Verified 01/31/18 08:49) Medications to take at Discharge Aspirin [Aspirin, Baby] 81 mg PO DAILY@0800 02/16/17 [place] Q Plus 1 tab PO BID 02/17/17 Carvedilol [Coreg (Beta Srinivasa)] 12.5 mg PO BID 01/31/18 Apixaban [Eliquis] 2.5 mg PO BID #60 tab 02/01/18 Atorvastatin Calcium [Lipitor] 40 mg PO QHS #30 tab 02/01/18 The following prescriptions were given: Atorvastatin Calcium [Lipitor] 40 mg PO QHS #30 tab Apixaban [Eliquis] 2.5 mg PO BID #60 tab Primary Care Physician: Aroldo Julio MD [Primary Care Provider] - Please follow up with your Primary Care Physician in: 1 Week Please Follow Up With: Kehinde Lucas MD When: 2-3 Weeks Please Follow Up With: Ten Tineo MD - May see MEDICAL AFFAIRS DIRECTOR/PA When: 1-2 Weeks Proposed Discharge Date: 02/01/18
--- NOTE | 2018-02-01 13:55 | DCINST_ITS ---
- Discharge Diagnoses Current Active Problems: Current Active and Chronic Problems (Last Reviewed 10/17/17 @ 09:29 by Ten Tineo MD) TIA (transient ischemic attack) (Acute) You will use the following diet at home:: Cardiac Discharge Activity: Return to Normal Activity Call your doctor if you observe: Shortness of breath, Dizziness, Fainting spells , Chest pain, Increased palpitations (irregular heartbeat) Allergies/Adverse Reactions: Allergies No Known Allergies Allergy (Verified 01/31/18 08:49) Medications to take at Discharge Aspirin [Aspirin, Baby] 81 mg PO DAILY@0800 02/16/17 [place] Q Plus 1 tab PO BID 02/17/17 Carvedilol [Coreg (Beta Srinivasa)] 12.5 mg PO BID 01/31/18 Apixaban [Eliquis] 2.5 mg PO BID #60 tab 02/01/18 Atorvastatin Calcium [Lipitor] 40 mg PO QHS #30 tab 02/01/18 The following prescriptions were given: Atorvastatin Calcium [Lipitor] 40 mg PO QHS #30 tab Apixaban [Eliquis] 2.5 mg PO BID #60 tab Primary Care Physician: Aroldo Julio MD [Primary Care Provider] - Please follow up with your Primary Care Physician in: 1 Week Please Follow Up With: Kehinde Lucas MD When: 2-3 Weeks Please Follow Up With: Ten Tineo MD - May see ROCK WOOL INSULATOR/PA When: 1-2 Weeks Proposed Discharge Date: 02/01/18
--- NOTE | 2018-02-01 13:56 | PCM.DC.SUM ---
Discharge Date and Diagnosis - Problem List Patient Problems: Active and Suspected Problems (Last Reviewed 10/17/17 @ 09:29 by Ten Tineo MD) TIA (transient ischemic attack) (Acute) Date of Admission: 01/31/18 Date of Discharge: 02/01/18 - Primary Discharge Diagnosis Active and Suspected Problems (Last Reviewed 10/17/17 @ 09:29 by Ten Tineo MD) 1. Suspected TIA 2. Paroxysmal atrial fibrillation 3. Ischemic cardiomyopathy - Secondary Discharge Diagnosis Chronic Problems (Last Reviewed 10/17/17 @ 09:29 by Ten Tineo MD) Presence of implantable cardioverter-defibrillator (ICD) (Chronic) Atherosclerotic heart disease of [place] coronary artery without angina pectoris (Chronic) CABG X 3 11/24/10 Hyperlipidemia (Chronic) Ischemic cardiomyopathy (Chronic) Abnormal electrocardiogram [ECG] [EKG] (Chronic) Biventricular automatic implantable cardioverter defibrillator in situ (Chronic) ICD Implant 05/25/11 Paroxysmal atrial fibrillation (Chronic) Palpitations (Chronic) CKD (chronic kidney disease) stage 3, GFR 30-59 ml/min (Chronic) Baseline Cr 1.2-1.4 HTN (hypertension) (Chronic) S/P CABG x 3 (Chronic) CABG X 3v 11/24/10: MENDOZA to LAD,SVG to Diagonal branch of LAD and posterolateral cx Pacemaker (Chronic) Conduction disorder, unspecified (Chronic) Hospital Course and Treatment Imaging Results: Diagnostic Data Head CTA 01/31/18 09:04 IMPRESSION: Plaque formation at the origins of both internal carotid arteries with less than 50% stenosis. Electronically Signed: Nick Sylvester MD at 10:49 EDT Tel [phone], Service support , Neck CTA 01/31/18 09:04 IMPRESSION: Plaque formation at the origins of both internal carotid arteries with less than 50% stenosis. Electronically Signed: Nick Sylvester MD at 10:49 EDT Tel [phone], Service support , Chest X-Ray 02/01/18 05:55 IMPRESSION: Mild residual increased markings in the right midlung. Electronically Signed: Nick Sylvester MD at 10:36 EDT Tel [phone], Service support , Brain CT 02/01/18 08:00 IMPRESSION: Chronic involutional changes of the brain. No acute abnormality is seen. Electronically Signed: Nick Sylvester MD at 8:56 EDT Tel [phone], Service support , Dr. Lucas- Neurology Dr. Tineo- Cardiology Operations: None Procedures: 2-D Echocardiogram, Stress test Summary of Care Provided: The patient is a 82 year old M admitted 01/31/2018 due to dysphasia, dysarthria, left facial droop. He has a past medical history of CAD status post CABG x3, hypertension, hyperlipidemia, ischemic cardiomyopathy status post AICD, conduction disorder status post pacemaker, paroxysmal atrial fibrillation, chronic kidney disease stage III. Initial CT of head in ED showed chronic involutional changes of the brain with questionable increased density in the right middle cerebral artery. Neurology consulted. Repeat CT of head prior to discharge showed no acute abnormality. Patient was started on Eliquis 2.5 mg twice daily for paroxysmal atrial fibrillation. He was also initiated on Lipitor 40 mg p.o. nightly. MRI brain was not able to be completed due to AICD. CT of head and neck showed less than 50% bilateral stenosis. Echocardiogram showed an EF of 25%, stage II diastolic dysfunction, severe global hypokinesis of left ventricle, mild mitral valve insufficiency, mild tricuspid valve insufficiency, RVSP estimated to be 49 mmHg, moderate pulmonary hypertension. Compared to previous echo 02/24/2014, LV function worsened from 55% to 25%. Patient underwent nuclear stress test which was negative for ischemia. Patient will follow up with Dr. Lucas, neurology in 2-[address] Tineo, cardiology in 1-2 weeks. Cardiac catheterization may be necessary in the future as outpatient. Patient's AICD was interrogated during admission. Interrogation showed no V. tach or V. fib episodes. Patient will continue aspirin, Eliquis, statin, data srinivasa at discharge. Patient seen and examined prior to discharge. Alert and oriented, no distress noted. Lungs clear. Heart rate regular in rate, sinus arrhythmia. Neuro grossly intact. Abdomen soft, nontender. Skin intact. Normal affect. Vital signs stable. Patient seen and examined prior to discharge. Physical assessment as noted above. Patient is stable for discharge home with further follow-up with primary care physician, cardiology and neurology. This patient was seen by SHAD Baugh under the supervision of Dr. Bustamante. Discharge Diet: Low fat/ Low Cholesterol Discharge Activity: Return to Normal Activity Call your doctor if you observe: Shortness of breath, Dizziness, Fainting spells, Chest pain, Increased palpitations (irregular heartbeat) Home Medications: Medications to take at Discharge Aspirin [Aspirin, Baby] 81 mg PO DAILY@0800 02/16/17 [place] Q Plus 1 tab PO BID 02/17/17 Carvedilol [Coreg (Beta Srinivasa)] 12.5 mg PO BID 01/31/18 Apixaban [Eliquis] 2.5 mg PO BID #60 tab 02/01/18 Atorvastatin Calcium [Lipitor] 40 mg PO QHS #30 tab 02/01/18 Following Prescrptions Were Given to Patient: Atorvastatin Calcium [Lipitor] 40 mg PO QHS #30 tab Apixaban [Eliquis] 2.5 mg PO BID #60 tab Primary Care Physician: Aroldo Julio MD [Primary Care Provider] - Please follow up with your Primary Care Physician in: 1 Week Please Follow Up With: Kehinde Lucas MD When: 2-3 Weeks Please Follow Up With: Ten Tineo MD - May see LABORATORY ASST/PA When: 1-2 Weeks Disposition: Home Minutes spent on discharge:: 35 Patient Condition:: Stable Medical Necessity - Tobacco Use Smoking Status: Never smoker Tobacco Use: Non-smoker Meaningful Use Info Meaningful Use Diagnoses (Choose all that apply): None applicable
--- NOTE | 2018-02-01 14:06 | DS.PCM_ITS ---
Discharge Date and Diagnosis - Problem List Patient Problems: Active and Suspected Problems (Last Reviewed 10/17/17 @ 09:29 by Ten Tineo MD ) TIA (transient ischemic attack) (Acute) Date of Admission: 01/31/18 Date of Discharge: 02/01/18 - Primary Discharge Diagnosis Active and Suspected Problems (Last Reviewed 10/17/17 @ 09:29 by Ten Tineo MD ) 1. Suspected TIA 2. Paroxysmal atrial fibrillation 3. Ischemic cardiomyopathy - Secondary Discharge Diagnosis Chronic Problems (Last Reviewed 10/17/17 @ 09:29 by Ten Tineo MD) Presence of implantable cardioverter-defibrillator (ICD) (Chronic) Atherosclerotic heart disease of [place] coronary artery without angina pectoris (Chronic) CABG X 3 11/24/10 Hyperlipidemia (Chronic) Ischemic cardiomyopathy (Chronic) Abnormal electrocardiogram [ECG] [EKG] (Chronic) Biventricular automatic implantable cardioverter defibrillator in situ (Chronic) ICD Implant 05/25/11 Paroxysmal atrial fibrillation (Chronic) Palpitations (Chronic) CKD (chronic kidney disease) stage 3, GFR 30-59 ml/min (Chronic) Baseline Cr 1.2-1.4 HTN (hypertension) (Chronic) S/P CABG x 3 (Chronic) CABG X 3v 11/24/10: MENDOZA to LAD,SVG to Diagonal branch of LAD and posterolateral cx Pacemaker (Chronic) Conduction disorder, unspecified (Chronic) Hospital Course and Treatment Imaging Results: Diagnostic Data Head CTA 01/31/18 09:04 IMPRESSION: Plaque formation at the origins of both internal carotid arteries with less than 50% stenosis. Electronically Signed: Nick Sylvester MD at 10:49 EDT Tel [phone], Service support , Neck CTA 01/31/18 09:04 IMPRESSION: Plaque formation at the origins of both internal carotid arteries with less than 50% stenosis. Electronically Signed: Nick Sylvester MD at 10:49 EDT Tel [phone], Service support , Chest X-Ray 02/01/18 05:55 IMPRESSION: Mild residual increased markings in the right midlung. Electronically Signed: Nick Sylvester MD at 10:36 EDT Tel [phone], Service support , Brain CT 02/01/18 08:00 IMPRESSION: Chronic involutional changes of the brain. No acute abnormality is seen. Electronically Signed: Nick Sylvester MD at 8:56 EDT Tel [phone], Service support , Dr. Lucas- Neurology Dr. Tineo- Cardiology Operations: None Procedures: 2-D Echocardiogram, Stress test Summary of Care Provided: The patient is a 82 year old M admitted 01/31/2018 due to dysphasia, dysarthria, left facial droop. He has a past medical history of CAD status post CABG x3, hypertension, hyperlipidemia, ischemic cardiomyopathy status post AICD, conduction disorder status post pacemaker, paroxysmal atrial fibrillation, chronic kidney disease stage III. Initial CT of head in ED showed chronic involutional changes of the brain with questionable increased density in the right middle cerebral artery. Neurology consulted. Repeat CT of head prior to discharge showed no acute abnormality. Patient was started on Eliquis 2.5 mg twice daily for paroxysmal atrial fibrillation. He was also initiated on Lipitor 40 mg p.o. nightly. MRI brain was not able to be completed due to AICD. CT of head and neck showed less than 50% bilateral stenosis. Echocardiogram showed an EF of 25%, stage II diastolic dysfunction, severe global hypokinesis of left ventricle, mild mitral valve insufficiency, mild tricuspid valve insufficiency, RVSP estimated to be 49 mmHg, moderate pulmonary hypertension. Compared to previous echo 02/24/2014, LV function worsened from 55 % to 25%. Patient underwent nuclear stress test which was negative for ischemia. Patient will follow up with Dr. Lucas, neurology in 2-[address] Tineo, cardiology in 1-2 weeks. Cardiac catheterization may be necessary in the future as outpatient. Patient's AICD was interrogated during admission. Interrogation showed no V. tach or V. fib episodes. Patient will continue aspirin, Eliquis, statin, data srinivasa at discharge. Patient seen and examined prior to discharge. Alert and oriented, no distress noted. Lungs clear. Heart rate regular in rate, sinus arrhythmia. Neuro grossly intact. Abdomen soft, nontender. Skin intact. Normal affect. Vital signs stable. Patient seen and examined prior to discharge. Physical assessment as noted above. Patient is stable for discharge home with further follow-up with primary care physician, cardiology and neurology. This patient was seen by SHAD Baugh under the supervision of Dr. Bustamante. Discharge Diet: Low fat/ Low Cholesterol Discharge Activity: Return to Normal Activity Call your doctor if you observe: Shortness of breath, Dizziness, Fainting spells , Chest pain, Increased palpitations (irregular heartbeat) Home Medications: Medications to take at Discharge Aspirin [Aspirin, Baby] 81 mg PO DAILY@0800 02/16/17 [place] Q Plus 1 tab PO BID 02/17/17 Carvedilol [Coreg (Beta Srinivasa)] 12.5 mg PO BID 01/31/18 Apixaban [Eliquis] 2.5 mg PO BID #60 tab 02/01/18 Atorvastatin Calcium [Lipitor] 40 mg PO QHS #30 tab 02/01/18 Following Prescrptions Were Given to Patient: Atorvastatin Calcium [Lipitor] 40 mg PO QHS #30 tab Apixaban [Eliquis] 2.5 mg PO BID #60 tab Primary Care Physician: Aroldo Julio MD [Primary Care Provider] - Please follow up with your Primary Care Physician in: 1 Week Please Follow Up With: Kehinde Lucas MD When: 2-3 Weeks Please Follow Up With: Ten Tineo MD - May see PHP DEVELOPER/PA When: 1-2 Weeks Disposition: Home Minutes spent on discharge:: 35 Patient Condition:: Stable Medical Necessity - Tobacco Use Smoking Status: Never smoker Tobacco Use: Non-smoker Meaningful Use Info Meaningful Use Diagnoses (Choose all that apply): None applicable
--- NOTE | 2018-02-01 14:48 | CASEMGMT ---
Per Jenni PANTOJA, pt to be sent home on Eliquis at discharge and med e-scribed to [facility]. Call to [facility] and per tech, med is covered but co-pay is $144.67. Jenni PANTOJA aware at this time and states pt is to f/u with medical aide office in 1-2weeks. Pt updated on all at this time and advised him to schedule f/u within next several weeks and advise medical aide of cost, pt voices understanding of all at this time. Pt voices no further questions/concerns/needs at this time. Pt is dressed and awaiting dispo at this time. SStsee ARTEAGA CM
== END 2018-02-01 13:54 | disposition home or self-care (01) ==
LOC: ED 10:35 → PCU 12:01
PROVIDERS: Internal Medicine Cardiovascular Disease; Admitting Provider Family Medicine; Emergency Provider Emergency Medicine; Family Provider Family Medicine; PCP Family Medicine; Visit Provider Family Medicine
DX: R47.1 Dysarthria and anarthria (principal); R29.810 Facial weakness; R13.10 Dysphagia, unspecified; I48.0 Paroxysmal atrial fibrillation; I25.10 Atherosclerotic heart disease of native coronary artery without angina pectoris; I25.5 Ischemic cardiomyopathy; K21.9 Gastro-esophageal reflux disease without esophagitis; E78.5 Hyperlipidemia, unspecified; I12.9 Hypertensive chronic kidney disease with stage 1 through stage 4 chronic kidney disease, or unspecified chronic kidney disease; N18.3 Chronic kidney disease, stage 3 (moderate); Z95.810 Presence of automatic (implantable) cardiac defibrillator; Z95.1 Presence of aortocoronary bypass graft; Z66 Do not resuscitate; D64.9 Anemia, unspecified
CPT/HCPCS: 36415; 70450; 70496; 70498; 71045; 71046; 78452; 80048; 80061; 81001; 82607; 82728; 82746; 82962; 83540; 83550; 83735; 84443; 84484; 85025; 85027; 85610; 85730; 93005; 93017; 93306; 96360; 96361; 99218; 99285; A9500; J7030; Q9967; A4216; G0378; J2785

== ENCOUNTER → 2018-06-25 13:50 | Outpatient (CLI) | payer MEDICARE, SELFPAY ==
--- NOTE | 2018-06-25 13:52 | ECHOD_ITS ---
Reason For Study: CHF Procedure This was a 2D Doppler, Color Flow transthoracic echocardiogram. Exam performed in department. Left Ventricle Normal LV size. The estimated ejection fraction is 35 %. Stage 1 diastolic dysfunction. There is moderate global hypokinesis of the left ventricle. Right Ventricle ICD or pacer leads identified within the right ventricle. Normal RV size. Normal systolic function. Atria The left atrium is moderately enlarged. Normal right atrium. Mitral Valve Normal mitral valve. Mild-Moderate (1-2+) eccentric mitral valve insufficiency. Tricuspid Valve Normal tricuspid valve. Mild (1+) tricuspid valve insufficiency. Pulmonary artery systolic pressure is 49 mmHg. Aortic Valve Trisinus/trileaflet aortic valve. Mild focal aortic valve calcification. Pulmonic Valve Normal pulmonic valve. Great Vessels Mildly dilated aortic root. The pulmonary artery is normal size. Pericardium/Pleural No pericardial effusion. MMode/2D Measurements & Calculations LVIDd: 5.3 cm IVSd: 1.6 cm Ao root diam: 4.1 cm LVIDs: 4.3 cm LVPWd: 1.0 cm LA dimension: 5.1 cm RVDd: 5.4 cm FS: 18.7 % LAV(MOD-bp): 112.7 ml LVAd ap4: 37.0 cm2 SV(MOD-sp4): 53.0 ml LAV(MOD-bp) Indexed: 57.9 ml/m2 EDV(MOD-sp4): 129.1 ml LAV(MOD-sp2): 82.9 ml EDV(sp4-el): 131.6 ml LAV(MOD-sp4): 123.3 ml LVAs ap4: 27.1 cm2 ESV(MOD-sp4): 76.1 ml ESV(sp4-el): 81.1 ml EF(MOD-sp4): 41.1 % EF(sp4-el): 38.4 % SV(sp4-el): 50.5 ml LA A4 area: 33.2 cm2 RA A4 area: 19.4 cm2 Time Measurements MV dec time: 0.17 sec Doppler Measurements & Calculations MV E max avni: 86.8 cm/sec Med Peak E' Avni: 4.5 cm/sec MV V2 max: 106.9 cm/sec MV A max avni: 106.2 cm/sec E/E' med: 19.5 MV max P.6 mmHg MV E/A: 0.82 MV V2 mean: 62.0 cm/sec MV mean P.8 mmHg MV V2 VTI: 33.2 cm MV P1/2t max avni: 101.1 cm/sec Ao V2 max: 146.7 cm/sec AI max avni: 362.4 cm/sec MV P1/2t: 58.5 msec Ao max P.6 mmHg AI max P.5 mmHg MV dec slope: 506.0 cm/sec2 Ao V2 mean: 106.3 cm/sec AI dec slope: 160.4 cm/sec2 MVA(P1/2t): 3.8 cm2 Ao mean P.0 mmHg AI P1/2t: 661.8 msec Ao V2 VTI: 33.6 cm LV V1 max: 95.3 cm/sec MR max avni: 514.4 cm/sec PA V2 max: 70.3 cm/sec LV V1 max P.6 mmHg MR max P.9 mmHg LV V1 mean P.5 mmHg LV V1 mean: 55.5 cm/sec LV V1 VTI: 20.8 cm TR max avni: 333.7 cm/sec TR max P.5 mmHg Interpretation Summary Normal LV size. The estimated ejection fraction is 35 %. Stage 1 diastolic dysfunction. There is moderate global hypokinesis of the left ventricle. The left atrium is moderately enlarged. Mild (1+) tricuspid valve insufficiency. Pulmonary artery systolic pressure is 49 mmHg. Compared to previous study, the left ventricular systolic function has improved.. Ordering Physician: Wisam Waters Referring Physician: Wisam Waters Performed By: Mark Jasso RCS
== END ==
PROVIDERS: Family Provider Family Medicine; PCP Family Medicine; Referring Provider Nurse Practitioner Family; Visit Provider Nurse Practitioner Family
DX: I25.10 Atherosclerotic heart disease of native coronary artery without angina pectoris (principal); I25.5 Ischemic cardiomyopathy
CPT/HCPCS: 93306

== ENCOUNTER → 2018-07-23 08:01 | Outpatient (CLI) | payer MEDICARE, SELFPAY ==
[2018-06-19 08:27] VITALS: BMI 24.8
[2018-07-23 09:27] LABS: AST(SGOT) 15 U/L (15-37); Alanine Aminotransfer ALT/SGPT 13 U/L (16-61); Albumin, Serum 2.9 g/dL (3.2-5.0); Alkaline Phosphatase 55 U/L (45-117); Bilirubin, Direct 0.12 mg/dL (0.00-0.30); Cholesterol 172 mg/dL (200); High Density Lipoprotein 42 mg/dL; Protein, Total 7.9 g/dL (6.4-8.2); Triglycerides 91 mg/dL; Very Low Density Lipoprotein 18 mg/dL (5-40)
== END ==
PROVIDERS: Family Provider Family Medicine; PCP Family Medicine; Referring Provider Internal Medicine Cardiovascular Disease; Visit Provider Internal Medicine Cardiovascular Disease
DX: E78.5 Hyperlipidemia, unspecified (principal)
CPT/HCPCS: 36415; 80061; 80076

== ENCOUNTER 2018-09-12 19:11 | Emergency (ER) | payer MEDICARE, SELFPAY ==
[2018-09-12 19:12] VITALS: BP 135/72; PULSE 84; RESP 18; TEMP 37.9; O2SAT 96; BMI 25.2
--- NOTE | 2018-09-12 19:25 | EKG12_ITS ---
Test Reason : FEVER Blood Pressure : / mmHG Vent. Rate : 077 BPM Atrial Rate : 077 BPM P-R Int : 182 ms QRS Dur : 100 ms QT Int : 374 ms P-R-T Axes : 023 -04 113 degrees QTc Int : 423 ms Normal sinus rhythm with sinus arrhythmia Low voltage QRS Nonspecific T wave abnormality Abnormal ECG Confirmed by VERONICA CHANEL, AJITH ([id number]), editor news ALESSANDRO GUERRA ([id number]) on 09/14/2018 3:14:17 PM Referred By: MR Confirmed By:AJITH MARTIN MD
[2018-09-12] MEDS: Acetaminophen 325 MG Tablet 650 MG PO (19:33)
[2018-09-12 19:43] LABS: Mucous, Urine 0 SEEN /hpf (<or=2+); White Blood Cells 0 SEEN /hpf (0-5)
[2018-09-12] MEDS: 0.9% Normal Saline 1,000 ML IV.SOLN. 1000 ML IV (19:43)
--- NOTE | 2018-09-12 19:43 | RAD_ITS ---
STUDY: X-RAY CHEST REASON FOR EXAM: Male, 83 years old. Cough. Shortness of breath. Weakness. TECHNIQUE: PA and lateral views of the chest. COMPARISON: February 01, 2018. FINDINGS: Telemetry wires overlie the chest. The lungs are hyperinflated with chronic interstitial coarsening. There is no new mass or infiltrate. Small calcified granulomata are again seen in both lower lobes. There is no demonstrated pleural abnormality. Sternal cerclage wires are present from a prior sternotomy. The heart is normal in size. Stable cardiac pacemaker. Normal mediastinum and yony. Normal visualized pulmonary arteries. Normal visualized aortic arch and descending thoracic aorta. There are diffuse degenerative changes of the visualized thoracic spine. There is degenerative osteoarthritis of the bilateral shoulders. There is no demonstrated abnormality of the visualized soft tissue structures of the upper abdomen. 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 Electronically Signed: Leonardo Marie DO at 19:58 EST Tel [phone], Service support ,
[2018-09-12 19:44] LABS: Color, Urine Yellow (Yellow); Glucose, Dipstick Normal (Normal); Ketone-Dipstick Negative (Negative); Leukocyte Esterase-Dipstick 25 /ul (Negative); Nitrite-Dipstick Negative (Negative); Occult Blood-Urine 50 /ul (Negative); Protein-Dipstick 30 mg/dl (Negative); Urine Bilirubin Dipstick Negative (Negative); Urine Clarity Clear (Clear); Urine Urobilinogen 1 mg/dl (Normal)
[2018-09-12 19:45] LABS: Absolute Lymphocyte Count 0.82 X10^3/ul (0.83-4.51); Basophil# 0.04 X10^3/uL; Basophil% 0.3 % (0-1); Eosinophil# 0.01 X10^3/uL; Eosinophils% 0.1 % (0-5); Hemoglobin 11.9 g/dl (13.0-16.5); Lymphocyte # 0.82 X10^3/ul (4.0); Lymphocyte % 6.9 % (19-41); Mean Corp Hgb Conc 32.2 g/gl (32-36); Mean Corpuscular Hgb 27.7 pg (27.0-32.0); Mean Corpuscular Volume 86.2 fL (80-94); Mean Platelet Vol. 8.3 fl (6.2-12.0); Monocyte# 1.03 X10^3/uL; Monocyte% 8.6 % (0-10); Neutrophil # 10.03 X10^3/uL (2.7-7.7); Neutrophil % 83.9 % (47-70); POSITIVE COUNT NO; POSITIVE DIFFERENTIAL NO; POSITIVE MORPHOLOGY NO; Platelet Count 233 K/mm3 (150-450); RBC Distribution Width CV 14.9 % (11.6-14.6); RBC Distribution Width SD 46.8 fl (35.1-43.9); Red Blood Count 4.29 M/mm3 (4.6-6.2)
[2018-09-12 19:51] LABS: Bacteria RARE /hpf (None Seen); Red Blood Cells-Urine 5-10 SEEN /hpf (0-5); Squamous Epithelial Cells - UA 0-5 SEEN /hpf (0-5)
[2018-09-12 19:53] LABS: International Normalized Ratio 1.3; Partial Thromboplast Time 41.9 Seconds (24.1-36.2)
[2018-09-12 20:02] LABS: ALB/GLOB Ratio 0.6 RATIO (0.9-2.4); AST(SGOT) 15 U/L (15-37); Alanine Aminotransfer ALT/SGPT 16 U/L (16-61); Alkaline Phosphatase 64 U/L (45-117); Anion Gap 7 (5-15); BUN 28 mg/dL (7-18); BUN/Creat Ratio 15.4 RATIO (10-20); Calcium,Total 7.9 mg/dL (8.5-10.1); Chloride 104 mmol/L (98-107); Creatinine, Serum 1.82 mg/dL (0.70-1.30); EST Glomerular Filtration Rate 38 mL/min (>60); Est Glom Filt Rate - Afr Amer 46 mL/min (>60); Estimated Creatinine Clearance 33.33 ml/min; Globulin 5.1 g/dL (2.2-4.2); Glucose 130 mg/dL (74-106); Potassium 4.3 mmol/L (3.5-5.1); Protein, Total 8.1 g/dL (6.4-8.2); Sodium Level 138 mmol/L (136-145)
[2018-09-12 20:10] VITALS: BP 113/63; PULSE 82; RESP 18; TEMP 38.9; O2SAT 93
[2018-09-12] MEDS: Ibuprofen 600 MG Tablet PO (20:22)
[2018-09-12 20:42] LABS: Lactic Acid 1.1 mmol/L (0.4-2.0)
[2018-09-12 21:05] VITALS: BP 96/56; PULSE 80; RESP 20; TEMP 38.3; O2SAT 93
[2018-09-12 21:17] VITALS: BP 95/58; PULSE 77; RESP 16
--- NOTE | 2018-09-12 21:17 | ED.DCSUM_ITS ---
- ER Visit Summary Date of Service: 09/12/18 Chief Complaint: Febrile illness History of Present Illness: The patient is a 83 M presenting for evaluation secondary to a febrile illness. Patient states that today he developed fevers and chills. Full review of systems however is negative for any other infectious signs or symptoms. He denies any headaches sinus pain nasal drainage sore throat cough chest discomfort abdominal pain nausea vomiting diarrhea skin rashes. Patient was apparently at the primary care office and they had one blood pressure that was low, so they took another one it was low, so they took a third 1 and it was normal and they recommended that he come to the emergency department. Review of systems otherwise negative. Physical Examination: Vital signs notable for temperature of 100.2. Well- nourished elderly male no acute distress. Head normocephalic. No conjunctival pallor or scleral icterus. Moist mucous membranes. Neck was supple. Heart was regular with a regular rate. Lung sounds are clear to auscultation bilaterally respirations nondistressed left-sided pacemaker in place and nontender. Abdomen soft nontender. Back nontender. Extremities nontender nonedematous. Skin normal color no rash no evidence cellulitis patient alert and oriented no lateralizing neurological deficits. Test Results: CBC shows a leukocytosis of 12, creatinine mildly elevated to 1.8 with prior creatinine being 1.5. Urinalysis shows no evidence of infection lactic acid is normal flu swab is negative chest x-ray shows COPD changes per radiology my personal review. EKG demonstrates a sinus rate of 77 with nonspecific T changes. Emergency Department Course and Treatment: Patient presented secondary to a febrile illness. He was worked up broadly as he has no other signs or symptoms other than just his fever. I was not able to find a source for the patient's fever, but blood cultures were sent and he was given a liter fluid bolus. Patient's lactic acid is normal, his blood pressures have not been significantly low. He is nontoxic appearing, and while he does have a febrile illness I do not have a source and believe that admission to the hospital would actually put him at greater risk for exposure to nosocomial diseases. He was recommended fever control and close follow-up with primary care. Both patient and his family voiced understanding of this and understands signs and symptoms for which to return. Disposition: Discharge Impression: 1. Acute febrile illness This note was generated with Dragon dictation software. It may contain incorrect words, spelling, and punctuation that were not noted in review of the chart prior to signing ED Disposition - Plan for ED Patient: Disposition: Home or Assisted Living Diagnosis: Fever Instructions: ED Fever Unconf Cause Referrals: Aroldo Julio MD [Primary Care Provider] - 2 Days
[2018-09-12 21:27] VITALS: BP 97/58; PULSE 87; RESP 18; O2SAT 96
== END 2018-09-12 21:28 | disposition home or self-care (01) ==
PROVIDERS: Emergency Provider Emergency Medicine; Family Provider Family Medicine; PCP Family Medicine
DX: R50.9 Fever, unspecified (principal); I48.91 Unspecified atrial fibrillation; J44.9 Chronic obstructive pulmonary disease, unspecified; Z79.01 Long term (current) use of anticoagulants; Z79.82 Long term (current) use of aspirin; Z79.899 Other long term (current) drug therapy; Z95.0 Presence of cardiac pacemaker
CPT/HCPCS: 36415; 71046; 80053; 81001; 83605; 85025; 85610; 85730; 87040; 87086; 87088; 87804; 93005; 96360; 96361; 99285; J7030; A4216

== ENCOUNTER → 2019-12-19 09:21 | Outpatient (CLI) | payer MEDICARE, SELFPAY ==
[2019-12-19 08:46] VITALS: BMI 24.0
[2019-12-19 09:55] LABS: Absolute Lymphocyte Count 2.23 X10^3/uL (0.83-4.51); Absolute Neutrophil Count 5.1 X10^3/uL (2.0-7.7); Basophil# 0.07 X10^3/uL; Basophil% 0.8 % (0-1); Eosinophil# 0.04 X10^3/uL; Eosinophils% 0.5 % (0-5); Hematocrit 37.8 % (40-54); Hemoglobin 11.5 g/dL (13.0-16.5); Lymphocyte # 2.23 X10^3/ul (4.0); Lymphocyte % 26.4 % (19-41); Mean Corp Hgb Conc 30.4 g/dL (32-36); Mean Corpuscular Hgb 26.5 pg (27.0-32.0); Mean Corpuscular Volume 87.1 fL (80-94); Mean Platelet Vol. 8.4 fl (6.2-12.0); Monocyte# 0.97 X10^3/uL; Monocyte% 11.5 % (0-10); NRBC Flagged by Analyzer 0 % (0-5); Neutrophil % 60.4 % (47-70); Platelet Count 295 K/mm3 (150-450); RBC Distribution Width CV 15.3 % (11.6-14.6); RBC Distribution Width SD 48.3 fl (35.1-43.9); Red Blood Count 4.34 M/mm3 (4.6-6.2); White Blood Count 8.4 K/mm3 (4.4-11.0)
[2019-12-19 10:13] LABS: Anion Gap 3 (5-15); BUN 26 mg/dL (7-18); BUN/Creat Ratio 18.6 RATIO (10-20); Calcium,Total 8.3 mg/dL (8.5-10.1); Chloride 107 mmol/L (98-107); EST Glomerular Filtration Rate 51 mL/min (>60); Est Glom Filt Rate - Afr Amer 62 mL/min (>60); Glucose 98 mg/dL (74-106); Potassium 4.3 mmol/L (3.5-5.1); Sodium Level 138 mmol/L (136-145)
== END ==
PROVIDERS: PCP Family Medicine; Referring Provider Internal Medicine Cardiovascular Disease; Visit Provider Internal Medicine Cardiovascular Disease
DX: I25.10 Atherosclerotic heart disease of native coronary artery without angina pectoris (principal); I25.5 Ischemic cardiomyopathy; I27.21 Secondary pulmonary arterial hypertension; I47.2 Ventricular tachycardia; I48.0 Paroxysmal atrial fibrillation; N18.3 Chronic kidney disease, stage 3 (moderate); E78.5 Hyperlipidemia, unspecified; Z95.1 Presence of aortocoronary bypass graft; Z95.810 Presence of automatic (implantable) cardiac defibrillator
CPT/HCPCS: 36415; 80048; 85025

== ENCOUNTER 2020-03-02 20:00 | Emergency (ER) | payer OTHER, MEDICARE, SELFPAY ==
[2019-12-19 08:46] VITALS: BMI 24.0
[2020-03-02 20:01] VITALS: BP 143/67; PULSE 68; RESP 16; TEMP 37.1; O2SAT 97; BMI 22.8
--- NOTE | 2020-03-02 20:34 | CT_ITS ---
STUDY: CT BRAIN WITHOUT CONTRAST REASON FOR EXAM: Male, 85 years old. RT POSTERIOR HEAD AND RT NECK PAIN/ RADIATION DOSAGE (If Supplied By Facility): CTDIvol = ( 44.99 ) mGy, DLP = ( 829.85 ) mGycm TECHNIQUE: Transaxial CT imaging of the brain was performed without administration of intravenous contrast material. Individualized dose optimization techniques were used for this CT. COMPARISON: February 01, 2018 FINDINGS: Normal soft tissue structures. Normal calvarium. There is mild cerebral atrophy with widening of the extra-axial spaces and ventricular dilatation. There are areas of decreased attenuation within the white matter tracts of the supratentorial brain, consistent with microvascular disease changes. Normal basal ganglia and thalami. Normal brainstem. Normal cerebellum. There is no intracranial hemorrhage. There are no findings of an acute ischemic infarction. Normal visualized paranasal sinuses. CT/Brain/Head without Contrast IMPRESSION: Chronic involutional changes of the brain. Electronically Signed: Henry Vázquez MD at 21:58 EDT , Service support ,
--- NOTE | 2020-03-02 20:34 | CT_ITS ---
STUDY: CT CERVICAL SPINE WITHOUT CONTRAST REASON FOR EXAM: Male, 85 years old. RT POSTERIOR HEAD AND RT NECK PAIN/NKI RADIATION DOSAGE (If Supplied By Facility): CTDIvol = ( 20.91 ) mGy, DLP = ( 411.16 ) mGycm TECHNIQUE: High resolution transaxial imaging was performed without contrast material. Sagittal and coronal images were reconstructed. Individualized dose optimization techniques were used for this CT. COMPARISON: None FINDINGS: Normal craniovertebral junction. There are degenerative changes of the anterior atlantoaxial articulation. Normal odontoid process. Normal cervical lordosis. Normal vertebral bodies and posterior osseous elements. There is no acute fracture. C2-3: Mild spurring to the left. Facet spurring on the right. No canal stenosis or foraminal encroachment C3-4: Disc bulge with mild spurring. Facet spurring on the right more than the left. No canal stenosis. Neural foramina are patent. C4-5: Disc bulge with mild spurring. Facet spurring on the left more than the right. Uncovertebral spurring with left foraminal narrowing. No canal stenosis. C5-6: Mild spurring. Mild facet spurring.. Normal central canal and intervertebral neuroforamina. C6-7: Mild spurring. Normal central canal and intervertebral neuroforamina. C7-T1: Normal endplates. Normal disc height and morphology. Normal central canal and intervertebral neuroforamina. Normal visualized soft tissue structures. CT/Spine Cervical without Contras IMPRESSION: Multilevel degenerative changes, as described above. Electronically Signed: Henry Vázquez MD at 22:04 EDT , Service support ,
--- NOTE | 2020-03-02 20:39 | ED.VIS.GEN ---
History of Present Illness Chief Complaint: Headache Informant: Patient Onset: Today Context: Sudden Onset Timing: Intermittent Worsened by: movement Narrative: Patient is an 85-year-old male with history of CKD, coronary artery disease, TIA and hypertension presenting with headache and right-sided neck pain. Patient states he woke up at 3 AM because he was having sharp pains coming from his neck rating up into his scalp. He states he is at intermittent episodes since then. He is not taking anything for the pain prior to arrival. He states he was told his kidneys function only 30% and he is not supposed to take NSAIDs. Patient notes certain neck movements and raising his arm above his head seem to make the pain worse. He describes it like sharp pains that seem to zap him. He denies any associated jaw pain, vision changes, weakness or paresthesias. Denies any trauma. He states he only sleeps on his right side and does not feel he slept in an odd position. He denies any other complaints at this time. Past Medical History - Allergies and Home Meds Allergies/Adverse Reactions: Allergies No Known Allergies Allergy (Verified 03/02/20 20:04) Primary Care Physician: Aroldo Julio MD [Primary Care Provider] - Past Medical History: - - Coronary artery disease, ischemic cardiomyopathy, proximal A. fib, hyperlipidemia, CKD 3 Surgical History: coronary bypass surgery, pacemaker implantation, - - CABG x 3, AICD/Pacemaker, R inguinal hernia x 2, L inguinal hernia x 1, Possible femoral hernia x 1 per description. Smoking Status: Never smoker - Family History Paternal Family History: Family History (Last Reviewed 12/19/19 @ 09:[address] Ten Tineo MD) Father CAD (coronary artery disease), Onset Age: 55 Mother No problems noted. Brother CAD (coronary artery disease) History of coronary artery bypass graft x 3 Brother Cancer Brother Unknown whether patient has any health problems Brother No problems noted. Family History: Reports: Heart Disease Maternal Family History: Family History (Last Reviewed 12/19/19 @ 09:[address] Ten Tineo MD) Father CAD (coronary artery disease), Onset Age: 55 Mother No problems noted. Brother CAD (coronary artery disease) History of coronary artery bypass graft x 3 Brother Cancer Brother Unknown whether patient has any health problems Brother No problems noted. Family History: Reports: No pertinent history Review of Systems General: Denies: Chills, Fever, Sweats Eyes: Denies: Visual changes - bilaterally, Diplopia ENT: Denies: Bilateral ear pain, Rhinorrhea, Sore throat Cardiovascular: Denies: Chest pain, Palpitations Respiratory: Denies: Dyspnea, Cough, Dyspnea on exertion Gastrointestinal: Denies: Abdominal pain, Nausea, Vomiting, Diarrhea, Melena, Hematochezia Genitourinary: Denies: Dysuria, Hematuria, Frequency Musculoskeletal: Reports: Neck pain. Denies: Back pain, Extremity Pain Skin: Denies: Rash, Wounds Neurological: Reports: Headache. Denies: Weakness, Numbness Physical Exam Vital Signs/Narrative: Vital Signs Temp Pulse Resp BP Pulse Ox 03/02/20 20:01 98.7 F 68 16 143/67 H 97 Inital Vital Signs reviewed: Yes General: Well nourished, Well developed, No Acute Distress Head: Normocephalic, Atraumatic, Tenderness - Right occiput Eyes: Perrl, EOMI ENT: Moist mucous membranes, No rhinorrhea Neck: Supple, No JVD, - - No midline tenderness, right paraspinal tenderness to palpation Cardiovascular: Regular rate, Regular rhythm, No murmurs Respiratory: No distress, CTA bilaterally, Chest nontender Abdomen: Soft, Nontender, Nondistended, Normal bowel sounds Back: Nontender, Normal Inspection Extremities: Nontender, No edema Skin: Normal color, No rash Neurological: Alert, Oriented x3, Cranial nerves II-XII grossly intact, Normal Strength, Normal Sensation, Normal Gait. Negative for: Parasthesia, Weakness, Left side facial droop, Right side facial droop Psychological: Normal affect, Normal Mood Diagnostic/Tx/Re-eval Clinical Impression(s) from Imaging Studies Brain CT 03/02/20 20:34 IMPRESSION: Chronic involutional changes of the brain. Electronically Signed: Henry Vázquez MD at 21:58 EDT , Service support , Cervical Spine CT 03/02/20 20:34 IMPRESSION: Multilevel degenerative changes, as described above. Electronically Signed: Henry Vázquez MD at 22:04 EDT , Service support , - Medical Decision Making Patient is evaluated for headache and right-sided neck pain. The pain is to the right of midline and he is not have any midline tenderness or step-off signs. It seems to come and sharp spasms of pain. He is not have any associated paresthesias or overlying rash. I suspect patient is either having a muscle spasm or possible cervical neuralgia. Patient is given Tylenol and Valium for symptom control emergency room. On reevaluation he does have improvement. Given his age and no history of headaches I did check a head CT as well as CT of the C-spine. These are grossly negative. He has a normal neurologic exam and I have a lower suspicion for an acute vascular injury. Patient's is able to drive him home. He will be discharged home with a short course of Valium as well as instructions to take Tylenol for his symptoms. He is counseled on increased fall risk with Valium and verbalizes understanding of it. Patient is not to have NSAIDs because of his history of CKD as well as Eliquis use. He is instructed to follow-up with his primary care doctor. Patient is counseled on signs and symptoms requiring return to the emergency room. Patient verbalizes agreement and understand this plan. Patient discharged home in stable and improved condition. ED Disposition - Plan for ED Patient: Disposition: Home or Assisted Living Diagnosis: Headache, Cervicalgia of tiwduavy-egwtzxh-hjokq region Instructions: ED Headache Unspecified, ED Neck Pain Prescriptions: Diazepam [Valium] 2 mg PO TID PRN PRN #10 tab PRN Reason: Headache Transmission [id number] Referrals: Aroldo Julio MD [Primary Care Provider] - Additional Instructions: Take Tylenol as needed for pain. You been prescribed Valium which should help with the muscle spasms in your neck which I think is contributing to your pain. Please be aware that this might increase your risk of falls. Be careful when you take it. Follow-up with your primary care doctor later this week if your symptoms do not improve.
[2020-03-02] MEDS: Acetaminophen 325 MG Tablet 650 MG PO (20:40)
[2020-03-02] MEDS: diazePAM 5 MG Tablet PO (20:41)
[2020-03-02 23:08] VITALS: BP 135/79; PULSE 57; RESP 16; O2SAT 93
== END 2020-03-02 23:09 | disposition home or self-care (01) ==
PROVIDERS: Emergency Provider Emergency Medicine; PCP Family Medicine
DX: R51 Headache (principal); M54.2 Cervicalgia; I25.10 Atherosclerotic heart disease of native coronary artery without angina pectoris; I25.5 Ischemic cardiomyopathy; I48.0 Paroxysmal atrial fibrillation; I12.9 Hypertensive chronic kidney disease with stage 1 through stage 4 chronic kidney disease, or unspecified chronic kidney disease; N18.3 Chronic kidney disease, stage 3 (moderate); E78.5 Hyperlipidemia, unspecified; Z95.1 Presence of aortocoronary bypass graft; Z95.810 Presence of automatic (implantable) cardiac defibrillator; Z79.899 Other long term (current) drug therapy; Z86.73 Personal history of transient ischemic attack (TIA), and cerebral infarction without residual deficits
CPT/HCPCS: 70450; 72125; 99283

== ENCOUNTER 2021-06-25 08:27 | Inpatient (IN) | payer MEDICARE, SELFPAY ==
[2021-06-25] VITALS (22 sets, daily range): BP systolic 81–124; BP diastolic 36–73; PULSE 65–89; RESP 14–20; TEMP 36.1–36.8; O2SAT 92–100; BMI 22.7; BMI 22.8
--- NOTE | 2021-06-25 | COL_PTH ---
PATIENT: GABBY KEARNEY LOC: MS3 U#:[id number] AGE/SX: 86/M ROOM: [facility] RE06/25/[address]: Dr. Caleb Earl MD : [id number] BED: 1 DIS: 07/01/2021 SPEC #: [id number] RECD: 06/28/21 07:46 STATUS: GLORY ARMANDO #: [id number] KAMRAN: 06/25/21 00:[address]: Caleb Earl DEPT: SURGICAL PATHOLOGY RECD BY: Srinivas Ontiveros ENTERED: 06/28/21 09:03 SP TYPE: COLON OTHR DR: MD Dr. Aroldo Astorga MD Dr. Derek Brown, DO Violeta Rincon, CAREER DISCOVERY TEACHER-C Tissues: A - Colon, NOS B - Colon, NOS C - Rectum, NOS Procedures: Surgery Specimen Level IV Surgery Specimen Level V HEADER OPERATION: Open sigmoid colectomy PRE-OP DIAGNOSIS: Perforated bowel TISSUE SUBMITTED: A ? Sigmoid colon, B ? Sigmoid colon ring, C ? Rectal ring MICROSCOPIC DIAGNOSIS A. Sigmoid colon, colectomy: Diverticulosis and diverticulitis with extensive adhesions. See comment. B. Sigmoid colon ring: Colonic donut, no pathologic diagnosis. C. Rectal ring: Colonic donut with serosal acute inflammation. SJ:rg 06/30/2021 COMMENT A. The adherent piece of tissue consists of fibromuscular tissue and shows marked acute inflammation. This case is discussed with Dr. Earl on 06/30/21. MICROSCOPIC DESCRIPTION Slides are reviewed. GROSS DESCRIPTION A - Received in fixative is one container labeled with the patient's name and designated sigmoid colon. The specimen consists of two segments of bowel with attached pericolonic adipose tissue. The larger segment of bowel measures 12 cm in length. The serosal surface shows congestion. One resection margin is stapled. An adherent piece of dense is noted to this segment of bowel, which measures 7 x 6 cm. A detached piece of tissue is also noted measuring 8 x 4 x 1 cm. The second segment of bowel measures 8 cm in length. . One resection margin is stapled. Sections of the both segment of bowel reveal multiple diverticula. The diverticula are filled with fecal material. No mucosal lesion is identified in both segment of bowel. Sections will be submitted after fixation. / : 06/28/21 Sections of pericolonic adipose tissue do not reveal any obviously enlarged lymph node. Cable Strander sections are submitted in 12 cassettes as follows: 1-3 - detached piece of tissue, 4-7 - larger segment of bowel with adherent tissue (4 & 5 contains bowel with adherent piece of tissue, 6 & 7 adherent tissue), 8-10 - larger segment of bowel (8 - resection margin, stapled resection margin is inked black, 9 & 10 - diverticula), 11 & 12 - smaller segment of bowel (11??diverticula, 12 - pericolonic adipose tissue). / : 06/29/21 B - Received in fixative is one container labeled with the patient's name and designated sigmoid ring. The specimen consists of a donut-shaped piece of colonic tissue measuring 2 x 1.5 x 1 cm. Multiple sutures are noted. Cable Strander sections are submitted in one cassette. / : 06/28/21 C - Received in fixative is one container labeled with the patient's name and designated rectal ring. The specimen consists of a donut-shaped piece of colonic tissue measuring 2 x 2 x 1.5 cm. Multiple sutures are noted. Cable Strander sections are submitted in one cassette. / : 06/28/21 TC:5 CPT: 10451 x2, [id number]
--- NOTE | 2021-06-25 08:51 | CT_ITS ---
STUDY: CT ABDOMEN AND PELVIS WITH CONTRAST REASON FOR EXAM: Male, 86 years old. RLQ pain. Free intraperitoneal air on the chest radiograph. RADIATION DOSAGE (If Supplied By Facility): CTDIvol = ( 11.45 ) mGy, DLP = ( 527.05 ) mGycm TECHNIQUE: Transaxial images were obtained from the dome of the diaphragm to the symphysis pubis without oral contrast. IV 100mL Isovue-300 was administered. Sagittal and coronal images were reconstructed. Individualized dose optimization techniques were used for this CT. COMPARISON: None. FINDINGS: Increased markings at the lung bases suggestive of either atelectasis and/or scarring. Prior CABG. A dual-chamber pacemaker is seen. There is large amount of free intraperitoneal air. Free air is seen at the level of the diaphragmatic hiatus on the right side. Free air is also seen in the region of the pelvis. Normal liver. Normal gallbladder and extrahepatic biliary system. There are multiple benign calcified granulomata of the spleen. Normal pancreas. Normal bilateral adrenal glands. Small right renal cysts are seen. The larger measures 2.4 cm. Multiple left renal cysts. The larger is in the posterior aspect and measures 5.1 cm x 5.7 cm. Normal visualized stomach. Normal small intestine. There are multiple colonic diverticula consistent with diverticulosis. There is a dominant diverticulum measuring 7.5 cm x 10.5 cm in the sigmoid colon. This most likely represents the site of rupture. Free air is seen within the soft tissues. The appendix is visualized and appears normal. There is diffuse atherosclerotic calcification of the abdominal aorta and its major visceral branches. Dilatation of the distal abdominal aorta with a transverse dimension of 3.2 cm.Normal inferior vena cava. Normal retroperitoneum. Diffuse bladder wall thickening. Possible mass within the urinary bladder. There is enlargement of the prostate gland. The prostate measures 4.8 cm x 5.7 cm. Small left inguinal hernia containing nondilated small bowel loops. There are degenerative changes of the visualized lumbar spine. CT/Abdomen/Pelvis W IV Cont ONLY IMPRESSION: Large amount of free intraperitoneal air most likely secondary to ruptured sigmoid diverticulosis. Bilateral renal cysts more prominent on the left side. Bibasilar atelectasis. Electronically Signed: Nick Sylvester MD at 10:56 EST , Service support ,
--- NOTE | 2021-06-25 08:51 | EKG12_ITS ---
Test Reason : ABDOMINAL PAIN Blood Pressure : / mmHG Vent. Rate : 065 BPM Atrial Rate : 065 BPM P-R Int : 184 ms QRS Dur : 100 ms QT Int : 416 ms P-R-T Axes : 039 -21 159 degrees QTc Int : 432 ms Normal sinus rhythm Inferior infarct , age undetermined T wave abnormality, consider lateral ischemia Abnormal ECG Confirmed by VERONICA CHANEL, AJITH ([id number]), state editor DAVID OTTO ([id number]) on 06/28/2021 11:29:56 AM Referred By: Confirmed By:AJITH MARTIN MD
--- NOTE | 2021-06-25 08:53 | RAD_ITS ---
STUDY: X-RAY CHEST REASON FOR EXAM: Male, 86 years old. Sob TECHNIQUE: Single AP portable view of the chest. COMPARISON: Comparison is made with prior examination dated 09/12/2018. FINDINGS: There is evidence of free intraperitoneal air. EKG electrodes are seen. Increased markings at the right lung base suggestive of atelectasis and/or early infiltrate. There is no demonstrated pleural abnormality. Sternal cerclage wires and vascular clips are present from a prior sternotomy and coronary artery bypass graft procedure (CABG). A left-sided dual-chamber pacemaker is seen. Normal mediastinum and yony. Normal visualized pulmonary arteries. There is atherosclerotic calcification of the aortic arch with tortuosity. There are diffuse degenerative changes of the visualized thoracic spine. Normal visualized ribs, clavicles, and shoulders. There is no demonstrated abnormality of the visualized soft tissue structures of the upper abdomen. RAD/Chest 1 View (Portable) IMPRESSION: Free intraperitoneal air. Correlation with CT scan of the abdomen is recommended. Findings suggestive of atelectasis and/or early infiltrate at the right lung base. Electronically Signed: Nick Sylvester MD at 10:49 EST , Service support ,
--- NOTE | 2021-06-25 08:57 | EDS_ITS ---
HPI History of Present Illness Chief Complaint: Abd Pain Informant: patient Narrative Narrative: 86-year-old male presenting with abdominal pain. Patient states this started yesterday afternoon. He complains of epigastric abdominal pain that radiates to his lower abdomen. He has nausea without vomiting. He denies diarrhea or constipation. Denies blood in the stool. Denies urinary complaints. Denies back pain. Denies chest pain or shortness of breath. D enies fever. No previous abdominal surgery. Prior similar symptoms: No Recent Illness/Hospitalization: No PFSH PFS Medical History Abnormal electrocardiogram [ECG] [EKG] Atherosclerotic heart disease of [place] coronary artery without angina pectoris CKD (chronic kidney disease) stage 3, GFR 30-59 ml/min Encounter for long-term current use of high risk medication Hyperlipidemia Ischemic cardiomyopathy Non-sustained ventricular tachycardia Palpitations Paroxysmal atrial fibrillation Persistent atrial fibrillation Secondary pulmonary arterial hypertension Transient ischemic attack Home Medications cholecalciferol (vitamin D3) 25 mcg (1,000 unit) capsule 25 mcg PO DAILY 12/19/19 [History Last Taken Unknown] carvedilol 6.25 mg tablet 6.25 mg PO BID #180 tab 06/18/20 [Rx Last Taken Unknown] apixaban 2.5 mg tablet 2.5 mg PO BID 05/07/21 [History Last Taken Unknown] Allergy/AdvReac Type Severity Reaction Status Date / Time No Known Allergies Allergy Verified 06/25/21 08:27 Family History Father CAD (coronary artery disease), Onset Age: 55 Mother , unknown cause No problems noted. Brother CAD (coronary artery disease) History of coronary artery bypass graft x 3 Brother Cancer Brother Unknown whether patient has any health problems Brother , unknown causes No problems noted. 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) History of umbilical hernia repair Presence of implantable cardioverter-defibrillator (ICD) (05/25/11) Social History Smoking Status: Former smoker alcohol intake: never caffeine: Yes Type: coffee Number of servings: 2 ROS ROS ED Constitutional Constitutional ED: Denies fever(s) Eyes Eyes: Denies change in vision ENT ENT ED: Denies rhinorrhea or sore throat Cardiovascular Cardiovascular: Denies chest pain or palpitations Respiratory/Chest Respiratory/Chest: Denies cough or dyspnea Gastrointestinal Gastrointestinal: Reports abdominal pain and nausea; Denies constipation, diarrhea, melena or vomiting Genitourinary Genitourinary ED: Denies dysuria or hematuria Musculoskeletal Musculoskeletal: Denies back pain or myalgias Integumentary Denies rash Neurologic Neurologic: Denies headache(s) Psychiatric Psychiatric: Denies suicidal thoughts EXAM Physical Exam Const Vital Signs: 06/25/21 08:28 06/25/21 09:11 06/25/21 11:09 Temperature 97.1 F L Temperature Source Temporal Pulse Rate 71 65 73 Respiratory Rate 14 16 16 Blood Pressure 96/64 Blood Pressure Mean 74 Pulse Ox 100 97 97 Oxygen Delivery Method Room Air Positive well nourished and well developed General Appearance ED: well developed HEENT Reports normocephalic and head/scalp atraumatic Eyes PERRL and EOMs intact bilaterally Neck supple General: Negative for tenderness Chest Wall inspection of chest normal Resp normal respiratory effort and clear to auscultation bilaterally Cardio regular rate and regular rhythm GI non-distended Palpation: soft and tender epigastric, LLQ and RLQ; Negative for guarding or rebound tenderness present no CVA tenderness Extremity normal to inspection Neuro oriented x3 Sensorium / Orientation: alert Psych mental status grossly normal MDM MDM MDM Narrative Medical decision making narrative: Patient was given IV fluids, morphine, Zofran. CBC shows white count 14.5. Chemistries show creatinine 1.44. Lactic acid is normal. Lipase is normal. Urinalysis shows 0-[address] abdomen pelvis shows large amount of free intraperitoneal air. Most likely secondary to ruptured sigmoid diverticulosis. Patient was given Zosyn IV. Discussed with Dr. Earl who will evaluate the patient. Lab Data Attestation: I reviewed the patient's lab results. Labs: Laboratory Results - last 24 hr 06/25/21 06/25/21 06/25/21 08:56 08:56 08:56 WBC 14.5 H RBC 4.21 L Hgb 11.2 L Hct 35.7 L MCV 84.8 MCH 26.6 L MCHC 31.4 L RDW Std Deviation 47.4 H RDW Coeff of [place] 15.4 H Plt Count 299 MPV 8.3 Immature Gran % (Auto) 0.700 Neut % (Auto) 79.1 H Lymph % (Auto) 11.3 L [place] % (Auto) 8.5 Eos % (Auto) 0.0 Baso % (Auto) 0.4 Absolute Neuts (auto) 11.5 H Absolute Lymphs (auto) 1.64 Nucleated RBC % 0 Sodium 137 Potassium 4.6 Chloride 105 Carbon Dioxide 28.0 Anion Gap 4 L BUN 23 H Creatinine 1.44 H Estim Creat Clear Calc 39.20 Est GFR (MDRD) Af Amer 60 Est GFR (MDRD) Non-Af 50 L BUN/Creatinine Ratio 16.0 Glucose 125 H Lactic Acid 1.5 Calcium 8.5 Total Bilirubin 0.90 AST 9 L ALT 9 L Alkaline Phosphatase 63 Troponin I High Sens 10 Total Protein 7.8 Albumin 2.3 L Globulin 5.5 H Albumin/Globulin Ratio 0.4 L Lipase 38 L Urine Color Urine Clarity Urine pH Ur Specific [place] Urine Protein Urine Glucose (UA) Urine Ketones Urine Occult Blood Urine Nitrite Urine Bilirubin Urine Urobilinogen Ur Leukocyte Esterase Urine RBC Urine WBC Ur Squamous Epith Cells Urine Bacteria Urine Mucus 06/25/21 09:44 WBC RBC Hgb Hct MCV MCH MCHC RDW Std Deviation RDW Coeff of Christiano Plt Count MPV Immature Gran % (Auto) Neut % (Auto) Lymph % (Auto) [place] % (Auto) Eos % (Auto) Baso % (Auto) Absolute Neuts (auto) Absolute Lymphs (auto) Nucleated RBC % Sodium Potassium Chloride Carbon Dioxide Anion Gap BUN Creatinine Estim Creat Clear Calc Est GFR (MDRD) Af Amer Est GFR (MDRD) Non-Af BUN/Creatinine Ratio Glucose Lactic Acid Calcium Total Bilirubin AST ALT Alkaline Phosphatase Troponin I High Sens Total Protein Albumin Globulin Albumin/Globulin Ratio Lipase Urine Color Yellow Urine Clarity Sl. Cloudy Urine pH 6.5 Ur Specific [place] 1.015 Urine Protein 30 H Urine Glucose (UA) Normal Urine Ketones 5 H Urine Occult Blood 10 H Urine Nitrite Negative Urine Bilirubin Negative Urine Urobilinogen 1 H Ur Leukocyte Esterase 25 H Urine RBC 0-5 SEEN Urine WBC 0-5 SEEN Ur Squamous Epith Cells 0-5 SEEN Urine Bacteria 0 SEEN Urine Mucus 0 SEEN Radiography Chest X-Ray - ED: 1 View, Read by ED Physician and Read by Radiologist Diagnostic Testing: Clinical Impression(s) from Imaging Studies Abdomen/Pelvis CT 06/25/21 08:51 IMPRESSION: Large amount of free intraperitoneal air most likely secondary to ruptured sigmoid diverticulosis. Bilateral renal cysts more prominent on the left side. Bibasilar atelectasis. Electronically Signed: Nick Sylvester MD at 10:56 EST , Service support , Chest X-Ray 06/25/21 08:53 IMPRESSION: Free intraperitoneal air. Correlation with CT scan of the abdomen is recommended. Findings suggestive of atelectasis and/or early infiltrate at the right lung base. Electronically Signed: Nick Sylvester MD at 10:49 EST , Service support , EKG Initial EKG: Attestation: I personally reviewed and interpreted this EKG as follows: Interpretation: Sinus Rhythm Prior: Unchanged Discharge Plan Triage Chief Complaint: Abd Pain ED Provider: Thelma Claire Dx/Rx/DC Orders Clinical Impression: Abdominal pain, Free intraperitoneal air Prescriptions: No Action cholecalciferol (vitamin D3) 25 mcg (1,000 unit) capsule 25 mcg PO DAILY RF: 0 carvedilol 6.25 mg tablet 6.25 mg PO BID Qty: 180 RF: 3 Eliquis 2.5 mg tablet 2.5 mg PO BID RF: 0 Primary Care Provider: Aroldo Julio Referrals: Aroldo Julio MD [Primary Care Provider] - Disposition Disposition: Acute Care Hospital [facility]
[2021-06-25] MEDS: Morphine 4 MG/ML Syringe IV (09:06)
[2021-06-25] MEDS: Ondansetron 4 MG/2 ML Vial IV (09:06)
[2021-06-25 09:17] LABS: Absolute Lymphocyte Count 1.64 X10^3/uL (0.83-4.51); Absolute Neutrophil Count 11.5 X10^3/uL (2.0-7.7); Basophil# 0.06 X10^3/uL; Basophil% 0.4 % (0-1); Hematocrit 35.7 % (40-54); Hemoglobin 11.2 g/dL (13.0-16.5); Lymphocyte # 1.64 X10^3/ul (0.83-4.51); Lymphocyte % 11.3 % (19-41); Mean Corp Hgb Conc 31.4 g/dL (32-36); Mean Corpuscular Hgb 26.6 pg (27.0-32.0); Mean Corpuscular Volume 84.8 fL (80-94); Mean Platelet Vol. 8.3 fl (6.2-12.0); Monocyte# 1.24 X10^3/uL; Monocyte% 8.5 % (0-10); NRBC Flagged by Analyzer 0 % (0-5); Neutrophil # 11.47 X10^3/uL (2.7-7.7); Neutrophil % 79.1 % (47-70); Platelet Count 299 K/mm3 (150-450); RBC Distribution Width CV 15.4 % (11.6-14.6); RBC Distribution Width SD 47.4 fl (35.1-43.9); Red Blood Count 4.21 M/mm3 (4.6-6.2); White Blood Count 14.5 K/mm3 (4.4-11.0)
[2021-06-25 09:36] LABS: ALB/GLOB Ratio 0.4 RATIO (0.9-2.4); AST(SGOT) 9 U/L (15-37); Alanine Aminotransfer ALT/SGPT 9 U/L (16-61); Albumin, Serum 2.3 g/dL (3.2-5.0); Alkaline Phosphatase 63 U/L (45-117); Anion Gap 4 (5-15); BUN 23 mg/dL (7-18); Calcium,Total 8.5 mg/dL (8.5-10.1); Chloride 105 mmol/L (98-107); Creatinine, Serum 1.44 mg/dL (0.70-1.30); EST Glomerular Filtration Rate 50 mL/min (>60); Est Glom Filt Rate - Afr Amer 60 mL/min (>60); Globulin 5.5 g/dL (2.2-4.2); Glucose 125 mg/dL (74-106); Lipase 38 U/L (73-393); Potassium 4.6 mmol/L (3.5-5.1); Protein, Total 7.8 g/dL (6.4-8.2); Sodium Level 137 mmol/L (136-145); Troponin-I HS 10 pg/mL (3.0-78.0)
[2021-06-25 09:49] LABS: Bacteria 0 SEEN /hpf (None Seen); Mucous, Urine 0 SEEN /hpf (<or=2+)
[2021-06-25 09:57] LABS: Lactic Acid 1.5 mmol/L (0.4-1.9)
[2021-06-25 09:58] LABS: Color, Urine Yellow (Yellow); Glucose, Dipstick Normal (Normal); Ketone-Dipstick 5 mg/dl (Negative); Leukocyte Esterase-Dipstick 25 /ul (Negative); Nitrite-Dipstick Negative (Negative); Occult Blood-Urine 10 /ul (Negative); Protein-Dipstick 30 mg/dl (Negative); Specific Gravity, Urine 1.015 (1.002-1.030); Urine Bilirubin Dipstick Negative (Negative); Urine Clarity Sl. Cloudy (Clear); Urine Urobilinogen 1 mg/dl (Normal); Urine pH 6.5 (5.0 - 8.0)
[2021-06-25 10:03] LABS: Red Blood Cells-Urine 0-5 SEEN /hpf (0-5); Squamous Epithelial Cells - UA 0-5 SEEN /hpf (0-5); White Blood Cells 0-5 SEEN /hpf (0-5)
--- NOTE | 2021-06-25 12:15 | HP.PCM.SX_ITS ---
HPI - General HPI Narrative GABBY KEARNEY, is a 86 M who presents with lower abdominal pain. Patient reports pain started yesterday 230. Yesterday morning he had cataract surgery on his left eye. He went home and at 2:30 PM he started having intense abdominal pain that started moving downward. He was still having his pain today so came to the emergency room. He is not reporting fevers or chills. [facility] Medical History Abnormal electrocardiogram [ECG] [EKG] Atherosclerotic heart disease of [place] coronary artery without angina pectoris CKD (chronic kidney disease) stage 3, GFR 30-59 ml/min Encounter for long-term current use of high risk medication Hyperlipidemia Ischemic cardiomyopathy Non-sustained ventricular tachycardia Palpitations Paroxysmal atrial fibrillation Persistent atrial fibrillation Secondary pulmonary arterial hypertension Transient ischemic attack Home Medications cholecalciferol (vitamin D3) 25 mcg (1,000 unit) capsule 25 mcg PO DAILY 12/19/19 [History Last Taken Unknown] carvedilol 6.25 mg tablet 6.25 mg PO BID #180 tab 06/18/20 [Rx Last Taken Unknown] apixaban 2.5 mg tablet 2.5 mg PO BID 05/07/21 [History Last Taken Unknown] Allergy/AdvReac Type Severity Reaction Status Date / Time No Known Allergies Allergy Verified 06/25/21 08:27 Family History Father CAD (coronary artery disease), Onset Age: 55 Mother , unknown cause No problems noted. Brother CAD (coronary artery disease) History of coronary artery bypass graft x 3 Brother Cancer Brother Unknown whether patient has any health problems Brother , unknown causes No problems noted. 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) History of umbilical hernia repair Presence of implantable cardioverter-defibrillator (ICD) (05/25/11) Social History Smoking Status: Former smoker alcohol intake: never caffeine: Yes Type: coffee Number of servings: 2 ROS Constitutional Constitutional: Denies anorexia or fatigue Eyes Eyes: Reports change in vision Cardiovascular Cardiovascular: Denies chest pain Respiratory/Chest Respiratory/Chest: Denies cough Gastrointestinal Gastrointestinal: Reports abdominal pain; Denies diarrhea, nausea or vomiting Genitourinary Genitourinary: Denies change in urinary stream Musculoskeletal Musculoskeletal: Denies abnormal gait Integumentary Integumentary: Denies jaundice Psychiatric Psychiatric: Denies anxiety Endocrine Endocrinology: Denies flushing Hematologic/Lymphatic Hematologic/Lymphatic: Reports easy bleeding Vital Signs Vital Signs Vital Signs: 06/25/21 08:28 06/25/21 09:11 06/25/21 11:09 Temperature 97.1 F L Temperature Source Temporal Pulse Rate 71 65 73 Respiratory Rate 14 16 16 Blood Pressure 96/64 Blood Pressure Mean 74 Blood Pressure Source Blood Pressure Position Blood Pressure Location Pulse Ox 100 97 97 Oxygen Delivery Method Room Air 06/25/21 12:00 Temperature 97.9 F Temperature Source Oral Pulse Rate 75 Respiratory Rate 18 Blood Pressure Blood Pressure Mean Blood Pressure Source Monitor Blood Pressure Position Semi-Fowlers Blood Pressure Location Right Arm Pulse Ox 95 Oxygen Delivery Method Room Air Weight Weight: 162 lb 14.746 oz Body Mass Index (BMI) 22.7 Physical Exam Const oriented x3 Resp normal respiratory effort Cardio regular rate GI soft to palpation Inspection: abdominal distention Palpation: tender other (guarding in all quadrants) Results Lab / Micro Data Result Diagrams: 06/25/21 08:56 06/25/21 08:56 Labs: Laboratory Results - last 24 hr 06/25/21 08:56: WBC 14.5 H, RBC 4.21 L, Hgb 11.2 L, Hct 35.7 L, MCV 84.8, MCH 26.6 L, MCHC 31.4 L, RDW Std Deviation 47.4 H, RDW Coeff of [place] 15.4 H, Plt Count 299, MPV 8.3, Immature Gran % (Auto) 0.700, Neut % (Auto) 79.1 H, Lymph % (Auto) 11.3 L, [place] % (Auto) 8.5, Eos % (Auto) 0.0, Baso % (Auto) 0.4, Absolute Neuts (auto) 11.5 H, Absolute Lymphs (auto) 1.64, Nucleated RBC % 0 06/25/21 08:56: Sodium 137, Potassium 4.6, Chloride 105, Carbon Dioxide 28.0, Anion Gap 4 L, BUN 23 H, Creatinine 1.44 H, Estim Creat Clear Calc 39.20, Est GFR (MDRD) Af Amer 60, Est GFR (MDRD) Non-Af 50 L, BUN/Creatinine Ratio 16.0, Glucose 125 H, Calcium 8.5, Total Bilirubin 0.90, AST 9 L, ALT 9 L, Alkaline Phosphatase 63, Troponin I High Sens 10, Total Protein 7.8, Albumin 2.3 L, Globulin 5.5 H, Albumin/Globulin Ratio 0.4 L, Lipase 38 L 06/25/21 08:56: Lactic Acid 1.5 06/25/21 09:44: Urine Color Yellow, Urine Clarity Sl. Cloudy, Urine pH 6.5, Ur Specific [place] 1.015, Urine Protein 30 H, Urine Glucose (UA) Normal, Urine Ketones 5 H, Urine Occult Blood 10 H, Urine Nitrite Negative, Urine Bilirubin Negative, Urine Urobilinogen 1 H, Ur Leukocyte Esterase 25 H, Urine RBC 0-5 SEEN, Urine WBC 0-5 SEEN, Ur Squamous Epith Cells 0-5 SEEN, Urine Bacteria 0 SEEN, Urine Mucus 0 SEEN Micro: Microbiology 06/25/21 09:07 Nasal Secretion SARS-CoV-2 Antigen (Rapid) - Final Radiology Impression Abdomen/Pelvis CT 06/25/21 08:51 IMPRESSION: Large amount of free intraperitoneal air most likely secondary to ruptured sigmoid diverticulosis. Bilateral renal cysts more prominent on the left side. Bibasilar atelectasis. Electronically Signed: Nick Sylvester MD at 10:56 EST , Service support , Chest X-Ray 06/25/21 08:53 IMPRESSION: Free intraperitoneal air. Correlation with CT scan of the abdomen is recommended. Findings suggestive of atelectasis and/or early infiltrate at the right lung base. Electronically Signed: Nick Sylvester MD at 10:49 EST , Service support , Assessment & Plan Assessment/Plan (1) Perforated bowel: PLAN: Patient peers have perforated bowel likely sigmoid. There is a large amount of free air in the abdomen the sigmoid colon is severely dilated with air bubbles surrounding it. I discussed sigmoid colectomy with the patient as well as the possibility of stoma creation. I discussed the risks of the procedure i ncluding but I limited to bleeding, infection, injury to other organs such as the bowel, bladder, ureters. Patient understands the risks and is when to proceed. I explained that he is at elevated risk for the surgery due to his heart history, anticoagulant use, history of multiple hernia repairs. Patient understands risks as well to proceed with surgery. Caleb Earl MD Pager: [facility] [address] [place] [address], [address] [place] [address] Office:
[2021-06-25] MEDS: 0.9% Normal Saline 1,000 ML 15 ML IV (12:48)
[2021-06-25] MEDS: Lactated Ringers 1,000 ML 100 ML IV ×3 (14:00→19:01)
--- NOTE | 2021-06-25 17:30 | PCM.OPRPT ---
Problems Associated Problem List Diagnoses (1) Perforated bowel: Report of Operation Date of Procedure: 06/25/21 Pre-Operative Diagnosis: Perforated bowel Post-Operative Diagnosis: Perforated sigmoid colon Surgery/Procedure Performed:: Open sigmoid colectomy with anastomosis Specimen's removed: Sigmoid colon Description of Procedure: Patient was brought back to the operating room and general anesthesia was induced. Arterial line was placed. The rectal area was irrigated with Betadine and saline. Casper catheter was then placed. The abdomen was then prepped and draped in usual sterile fashion. Incision was made in the midline starting above the umbilicus and deepened to the suprapubic area. The abdomen was entered using sharp dissection and then finger was used to protect the bowel as electrocautery was used to open the incision. Wound protector was placed. The sigmoid colon was very dilated and inflamed and tightly adherent to the bladder. Dissection was attempted in the muscular portion of the bladder was entered. The mucosa was intact. Dissection was carried laterally on both sides but I was unable to identify a good plane. Proximal to the distended area and perforation there was healthy sigmoid colon which was divided using a 75 LD stapler. Dissection was taken posteriorly of the sigmoid colon using electrocautery until the thickened area was encountered. I was still unable to reach behind the second dilated area: Next the colon was opened and the contents were suctioned and following the wall of the colon the lateral sidewalls were taken down using electrocautery until there was healthy rectum identified. The rectum was stapled across using a curved stapler. The anterior wall of the sigmoid was left on the bladder as it was unable to be removed and it was cauterized using electrocautery. Next the muscular layer of the bladder was reapproximated using interrupted 3-0 silk sutures. The raw edge of the sigmoid colon was still attached to the bladder was imbricated using 0 Vicryl sutures. Next the abdomen was copiously irrigated with more than 3 L of fluid and suctioned dry. The rectum appeared healthy with good blood flow and no inflammation as did the sigmoid colon so an end-to-end anastomosis was chosen. The 33 EEA anvil was placed into the distal descending colon and pursestring sutured in place. Next the well-lubricated sizers were placed into the rectum and then the 33 stapler was placed into the rectum and the point was brought out. The anvil was attached and an anastomosis was formed. Leak test was performed and there was no leak. It appeared that there was good blood flow on either side of anastomosis with minimal inflammation around the anastomosis as it was irrigated and suctioned. Next the wound protector was removed and a drain was placed in the right lower quadrant using a scalpel and hemostat. The drain was placed into the pelvis looping around to lay on top of the bladder. It was sutured in place using a 4-0 nylon suture. Next the fascia was closed from top and bottom meeting in the middle using #1 PDS sutures. The subcutaneous tissue was irrigated and suctioned dry and packed with Betadine soaked gauze. The skin was left open. Bandages were applied and the patient was awoken and taken to PACU with Casper in place. Admit VTE Documentation VTE Mechan Device Prophylaxis: SCD's
--- NOTE | 2021-06-25 18:15 | RAD_ITS ---
EXAM: XR ABDOMEN, 1 VIEW CLINICAL INDICATION: NG TECHNIQUE: Frontal supine view of the abdomen/pelvis. This report was created using [employer] report generation technology. COMPARISON: CT done earlier FINDINGS: LOWER THORAX: Bilateral pleural effusions. Bilateral pneumonia. INTRAPERITONEAL SPACE: Abnormal air collection in the mid abdomen concerning for free air. This was identified on the prior CT scan. GASTROINTESTINAL TRACT: Unremarkable. Non-obstructive. No bowel or stomach distention. ORGANS: Unremarkable as visualized. No organomegaly. No abnormal calcifications. BONES/JOINTS: Multiple median sternotomy wires are noted consistent for cardiac surgery. Degenerative changes in the lumbar spine. SOFT TISSUES: No acute pathology. TUBES, LINES AND DEVICES: There is a feeding tube/ nasogastric tube noted. The tip is in the region of the stomach. RAD/Abdomen Single View IMPRESSION: 1. There is a feeding tube/ nasogastric tube noted. The tip is in the region of the stomach. 2. Bilateral pleural effusions. Bilateral pneumonia. 3. Abnormal air collection in the mid abdomen concerning for free air. This was identified on the prior CT scan. Electronically Signed: Ap Garsai MD at 21:33 EST , Service support ,
[2021-06-25 18:53] LABS: Hematocrit 34.1 % (40-54); Hemoglobin 10.6 g/dL (13.0-16.5)
--- NOTE | 2021-06-25 20:32 | SUR.PHASEI ---
AT APPROXIMATELY 2014, LEFT RADIAL ARTERIAL CATHETER REMOVED INTACT. PRESSURE APPLIED TO INSERTION STIE FOR 5 MIN AFTER WHICH NO BLEEDING NOTED.
[2021-06-26] VITALS (28 sets, daily range): BP systolic 83–120; BP diastolic 47–73; PULSE 80–103; RESP 15–26; TEMP 36.3–36.9; O2SAT 91–100
[2021-06-26] MEDS: 0.9% Normal Saline 1,000 ML 125 ML IV (00:35)
[2021-06-26] MEDS: Morphine 2 MG/ML Syringe IV (01:01)
[2021-06-26] MEDS: 0.9% Saline Lock 10 ML Syringe IV (02:56)
[2021-06-26] MEDS: Ondansetron 4 MG/2 ML Vial IV (02:56)
[2021-06-26 03:10] LABS: Absolute Lymphocyte Count 1.32 X10^3/uL (0.83-4.51); Absolute Neutrophil Count 17.4 X10^3/uL (2.0-7.7); Basophil# 0.06 X10^3/uL; Basophil% 0.3 % (0-1); Eosinophil# 0.01 X10^3/uL; Eosinophils% 0.1 % (0-5); Hematocrit 33.8 % (40-54); Hemoglobin 10.5 g/dL (13.0-16.5); Lymphocyte # 1.32 X10^3/ul (0.83-4.51); Lymphocyte % 6.7 % (19-41); Mean Corp Hgb Conc 31.1 g/dL (32-36); Mean Corpuscular Hgb 26.4 pg (27.0-32.0); Mean Corpuscular Volume 84.9 fL (80-94); Mean Platelet Vol. 8.3 fl (6.2-12.0); Monocyte# 0.91 X10^3/uL; Monocyte% 4.6 % (0-10); NRBC Flagged by Analyzer 0 % (0-5); Neutrophil # 17.37 X10^3/uL (2.7-7.7); Neutrophil % 87.7 % (47-70); Platelet Count 285 K/mm3 (150-450); RBC Distribution Width CV 15.2 % (11.6-14.6); Red Blood Count 3.98 M/mm3 (4.6-6.2); White Blood Count 19.8 K/mm3 (4.4-11.0)
[2021-06-26 03:34] LABS: Anion Gap 7 (5-15); BUN 21 mg/dL (7-18); BUN/Creat Ratio 13.5 RATIO (10-20); Calcium,Total 7.3 mg/dL (8.5-10.1); Chloride 109 mmol/L (98-107); Creatinine, Serum 1.56 mg/dL (0.70-1.30); EST Glomerular Filtration Rate 45 mL/min (>60); Est Glom Filt Rate - Afr Amer 55 mL/min (>60); Estimated Creatinine Clearance 36.43 ml/min; Glucose 117 mg/dL (74-106); Potassium 4.6 mmol/L (3.5-5.1); Sodium Level 137 mmol/L (136-145)
[2021-06-26 06:12] LABS: Magnesium 1.7 mg/dL (1.6-2.6)
--- NOTE | 2021-06-26 07:27 | CON.PCM.CC_ITS ---
Assessment & Plan Assessment/Plan (1) Perforated bowel: (2) Ischemic cardiomyopathy: (3) Secondary pulmonary arterial hypertension: (4) CKD (chronic kidney disease) stage 3, GFR 30-59 ml/min: PLAN: RECOMMENDATIONS: 1. KVO IV fluids 2. Hold on active diuresis for now 3. Antibiotics, reinitiation of anticoagulation and p.o. intake per surgery 4. Hold baseline carvedilol for now 5. Increase activity as tolerated 6. Potential transfer from the intensive care unit later today IMPRESSIONS: 1. Perforated sigmoid diverticulum status post partial large bowel resection POD #1 Patient appears to be doing okay at this time. Patient does have an NG in place, but has no bowel sounds or flatus to allow for p.o. intake. Patient did have an extensive 4-hour surgery, so insensible losses are likely high. However, patient has had increased oxygen requirements overnight and has an extensive cardiac history. We will hold IV fluids for now. Antibiotics, reinitiation of anticoagulation and p.o. intake per surgery. 2. Hypotension Unclear etiology. Patient likely has significant volume shifts given problem #1. Patient did not have to be initiated on pressors. Do anticipate an element of sepsis given bowel perforation, but patient is on antibiotics. No fever has been noted, but patient does have significant leukocytosis. Patient also has ischemic cardiomyopathy and has a baseline blood pressure of approximately 90s over 60s. Likely okay to leave the intensive care unit later today if doing okay. Could hold carvedilol for 1 to 2 days until equilibrium is established. 3. Paroxysmal A. fib/secondary pulmonary artery hypertension/advanced age/ischemic cardiomyopathy/CKD stage III Complicates care, management, recovery and prognosis. Reinitiation of beta-lorie the next 24 to 48 hours. Anticoagulation can be reinitiated per surgery. Clinical suspicion for hypoxia secondary to atelectasis and an element of systolic congestive heart failure. Fluid status is unclear at this time as patient likely has high insensible losses. We will hold on any active diuresis for now, but IV fluid should be KVO. Encourage incentive spirometer and out of bed as tolerated to avoid atelectasis. Renal function appears to be at baseline. Patient did have decreased p.o. intake and high insensible losses likely leading to decreased urine output over the last 24 hours. HPI Consult Data Date of Consult: 06/26/21 HPI Narrative HPI Narrative: GABBY KEARNEY is an 86 M, with past medical history listed below, who presents to [facility] 06/25/2021 secondary to abdominal pain of 24 hours. Patient states he started to get epigastric pain on the day prior to presentation. This progressed to lower abdominal pain associated with nausea but no vomiting. There was no diarrhea or constipation reported. Patient did not have any urinary complaints and denied any cough, fever, chills or sinus congestion. There was no loss of taste or smell. Patient is on anticoagulation at baseline secondary to paroxysmal A. fib. In the ER, patient was afebrile with a blood pressure of 96/64 to 100% on room air. Laboratory data showed a white blood cell count of 14.5, hemoglobin of 11.2 and platelet count of 299. Creatinine was elevated at 1.44, but LFTs were relatively unremarkable. UA was normal. Chest x-ray showed intraperitoneal air and a follow-up CT of the abdomen showed a large amount of intraperitoneal air thought to be secondary to ruptured sigmoid diverticulosis. Patient also had bilateral atelectasis. Patient was given IV Zosyn and Dr. Earl was asked to evaluate the patient. Patient subsequently had an open laparotomy with a partial large bowel resection. Patient was transferred from the OR to the [facility] floor in good condition. Overnight, patient became hypotensive and was transferred to the intensive care unit for possible pressor therapy. In the intensive care unit, pressors did not need to be initiated. Patient did have his IV fluids held secondary to significant rales and a wet cough. Patient has maintained a map in the mid to upper 60s. Patient has required 3 L nasal cannula to maintain saturations. Patient does not report a previous pulmonary history and does not require supplemental oxygen at baseline. 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 Nursing has reported intermittent episodes of A. fib without significant RVR. Review of systems otherwise negative from a constitutional, HEENT, respiratory, cardiovascular, GI, genitourinary, musculoskeletal, skin, neurologic, psychiatric and hematologic system unless stated above. [facility] Medical History Abnormal electrocardiogram [ECG] [EKG] Atherosclerotic heart disease of [place] coronary artery without angina pectoris CKD (chronic kidney disease) stage 3, GFR 30-59 ml/min Encounter for long-term current use of high risk medication Hyperlipidemia Ischemic cardiomyopathy Non-sustained ventricular tachycardia Palpitations Paroxysmal atrial fibrillation Persistent atrial fibrillation Secondary pulmonary arterial hypertension Transient ischemic attack Home Medications cholecalciferol (vitamin D3) 25 mcg (1,000 unit) capsule 25 mcg PO DAILY 12/19/19 [History Last Taken Unknown] carvedilol 6.25 mg tablet 6.25 mg PO BID #180 tab 06/18/20 [Rx Last Taken Unknown] apixaban 2.5 mg tablet 2.5 mg PO BID 05/07/21 [History Last Taken Unknown] Allergy/AdvReac Type Severity Reaction Status Date / Time No Known Allergies Allergy Verified 06/25/21 08:27 Family History Father CAD (coronary artery disease), Onset Age: 55 Mother , unknown cause No problems noted. Brother CAD (coronary artery disease) History of coronary artery bypass graft x 3 Brother Cancer Brother Unknown whether patient has any health problems Brother , unknown causes No problems noted. 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 Eyes PERRL and EOMs intact bilaterally Neck full ROM and no lymphadenopathy Lymph Lymphatic: no lymphadenopathy noted Chest inspection of chest normal Chest: symmetrical chest wall rise; Negative for crepitus Resp normal respiratory effort Effort and Inspection: actively coughing moist; Negative for uses accessory muscles Auscultation: rales bilateral; Negative for rhonchi or wheezes Cardio regular rate, regular rhythm, S1 normal heart sound and S2 normal heart sound Heart Sounds: murmur systolic II/ GI GI Narrative: No bowel sounds noted. ALYL drain noted with approximately 50 cc Inspection: incision intact and healing well Extremity no clubbing, cyanosis or edema Skin no rashes or lesions noted Neuro CN's II-XII intact bilaterally and no focal motor deficits Psych cooperative and affect normal Appearance: well kempt Lab / Micro Data Result Diagrams: 06/26/21 03:00 06/26/21 03:00 Labs: Laboratory Results - last 24 hr 06/25/21 08:56: WBC 14.5 H, RBC 4.21 L, Hgb 11.2 L, Hct 35.7 L, MCV 84.8, MCH 26.6 L, MCHC 31.4 L, RDW Std Deviation 47.4 H, RDW Coeff of Christiano 15.4 H, Plt Count 299, MPV 8.3, Immature Gran % (Auto) 0.700, Neut % (Auto) 79.1 H, Lymph % (Auto) 11.3 L, [place] % (Auto) 8.5, Eos % (Auto) 0.0, Baso % (Auto) 0.4, Absolute Neuts (auto) 11.5 H, Absolute Lymphs (auto) 1.64, Nucleated RBC % 0 06/25/21 08:56: Sodium 137, Potassium 4.6, Chloride 105, Carbon Dioxide 28.0, Anion Gap 4 L, BUN 23 H, Creatinine 1.44 H, Estim Creat Clear Calc 39.20, Est GFR (MDRD) Af Amer 60, Est GFR (MDRD) Non-Af 50 L, BUN/Creatinine Ratio 16.0, Glucose 125 H, Calcium 8.5, Total Bilirubin 0.90, AST 9 L, ALT 9 L, Alkaline Phosphatase 63, Troponin I High Sens 10, Total Protein 7.8, Albumin 2.3 L, Globulin 5.5 H, Albumin/Globulin Ratio 0.4 L, Lipase 38 L 06/25/21 08:56: Lactic Acid 1.5 06/25/21 09:44: Urine Color Yellow, Urine Clarity Sl. Cloudy, Urine pH 6.5, Ur Specific [place] 1.015, Urine Protein 30 H, Urine Glucose (UA) Normal, Urine Ke tones 5 H, Urine Occult Blood 10 H, Urine Nitrite Negative, Urine Bilirubin Negative, Urine Urobilinogen 1 H, Ur Leukocyte Esterase 25 H, Urine RBC 0-5 SEEN, Urine WBC 0-5 SEEN, Ur Squamous Epith Cells 0-5 SEEN, Urine Bacteria 0 SEEN, Urine Mucus 0 SEEN 06/25/21 14:35: Blood Type A POSITIVE, Antibody Screen NEGATIVE 06/25/21 17:35: Hgb 10.6 L, Hct 34.1 L 06/26/21 03:00: WBC 19.8 H, RBC 3.98 L, Hgb 10.5 L, Hct 33.8 L, MCV 84.9, MCH 26.4 L, MCHC 31.1 L, RDW Std Deviation 47.0 H, RDW Coeff of Christiano 15.2 H, Plt Count 285, MPV 8.3, Immature Gran % (Auto) 0.600, Neut % (Auto) 87.7 H, Lymph % (Auto) 6.7 L, [place] % (Auto) 4.6, Eos % (Auto) 0.1, Baso % (Auto) 0.3, Absolute Neuts (auto) 17.4 H, Absolute Lymphs (auto) 1.32, Nucleated RBC % 0 06/26/21 03:00: Sodium 137, Potassium 4.6, Chloride 109 H, Carbon Dioxide 21.0, Anion Gap 7, BUN 21 H, Creatinine 1.56 H, Estim Creat Clear Calc 36.43, Est GFR (MDRD) Af Amer 55 L, Est GFR (MDRD) Non-Af 45 L, BUN/Creatinine Ratio 13.5, Glucose 117 H, Calcium 7.3 L 06/26/21 03:00: Phosphorus 4.0, Magnesium 1.7 Micro: Microbiology 06/25/21 09:07 Nasal Secretion SARS-CoV-2 Antigen (Rapid) - Final Radiology Impression Abdomen/Pelvis CT 06/25/21 08:51 IMPRESSION: Large amount of free intraperitoneal air most likely secondary to ruptured sigmoid diverticulosis. Bilateral renal cysts more prominent on the left side. Bibasilar atelectasis. Electronically Signed: Nick Sylvester MD at 10:56 EST , Service support , Chest X-Ray 06/25/21 08:53 IMPRESSION: Free intraperitoneal air. Correlation with CT scan of the abdomen is recommended. Findings suggestive of atelectasis and/or early infiltrate at the right lung base. Electronically Signed: Nick Sylvester MD at 10:49 EST , Service support , KUB X-Ray 06/25/21 18:15 IMPRESSION: 1. There is a feeding tube/ nasogastric tube noted. The tip is in the region of the stomach. 2. Bilateral pleural effusions. Bilateral pneumonia. 3. Abnormal air collection in the mid abdomen concerning for free air. This was identified on the prior CT scan. Electronically Signed: Ap Garsia MD at 21:33 EST , Service support , Charges/Coding Visit Charges Inpatient E&M: 35617 Init Hosp L3
--- NOTE | 2021-06-26 08:04 | PN.SURG_ITS ---
Subjective Subjective Patient is comfortable this morning Objective Data Objective Data Vital Signs: Vital Signs Temp Pulse Resp BP Pulse Ox 98.2 F 85 22 H 92/63 97 06/26/21 04:00 06/26/21 07:00 06/26/21 07:00 06/26/21 07:00 06/26/21 07:00 Oxygen Flow Rate (L/min) 3 Oxygen Delivery Method Nasal Cannula Weight: 166 lb 6.4 oz Body Mass Index (BMI) 22.8 Intake & Output: Intake and Output for Last 24 Hours 06/24/21 06/25/21 06/26/21 23:59 23:59 23:59 Intake Total 3550 / 3550 1515.42 / 1515.42 Output Total 180 / 280 200 / 200 Balance 3370 / 3270 1315.42 / 1315.42 Lab / Micro Data Result Diagrams: 06/26/21 03:00 06/26/21 03:00 Labs: Laboratory Results - last 24 hr 06/25/21 08:56: WBC 14.5 H, RBC 4.21 L, Hgb 11.2 L, Hct 35.7 L, MCV 84.8, MCH 26.6 L, MCHC 31.4 L, RDW Std Deviation 47.4 H, RDW Coeff of Christian[place] 15.4 H, Plt Count 299, MPV 8.3, Immature Gran % (Auto) 0.700, Neut % (Auto) 79.1 H, Lymph % (Auto) 11.3 L, [place] % (Auto) 8.5, Eos % (Auto) 0.0, Baso % (Auto) 0.4, Absolute Neuts (auto) 11.5 H, Absolute Lymphs (auto) 1.64, Nucleated RBC % 0 06/25/21 08:56: Sodium 137, Potassium 4.6, Chloride 105, Carbon Dioxide 28.0, A nion Gap 4 L, BUN 23 H, Creatinine 1.44 H, Estim Creat Clear Calc 39.20, Est GFR (MDRD) Af Amer 60, Est GFR (MDRD) Non-Af 50 L, BUN/Creatinine Ratio 16.0, Glucose 125 H, Calcium 8.5, Total Bilirubin 0.90, AST 9 L, ALT 9 L, Alkaline Phosphatase 63, Troponin I High Sens 10, Total Protein 7.8, Albumin 2.3 L, Globulin 5.5 H, Albumin/Globulin Ratio 0.4 L, Lipase 38 L 06/25/21 08:56: Lactic Acid 1.5 06/25/21 09:44: Urine Color Yellow, Urine Clarity Sl. Cloudy, Urine pH 6.5, Ur Specific [place] 1.015, Urine Protein 30 H, Urine Glucose (UA) Normal, Urine Ketones 5 H, Urine Occult Blood 10 H, Urine Nitrite Negative, Urine Bilirubin Negative, Urine Urobilinogen 1 H, Ur Leukocyte Esterase 25 H, Urine RBC 0-5 SEEN, Urine WBC 0-5 SEEN, Ur Squamous Epith Cells 0-5 SEEN, Urine Bacteria 0 SEEN, Urine Mucus 0 SEEN 06/25/21 14:35: Blood Type A POSITIVE, Antibody Screen NEGATIVE 06/25/21 17:35: Hgb 10.6 L, Hct 34.1 L 06/26/21 03:00: WBC 19.8 H, RBC 3.98 L, Hgb 10.5 L, Hct 33.8 L, MCV 84.9, MCH 26.4 L, MCHC 31.1 L, RDW Std Deviation 47.0 H, RDW Coeff of Christian[place] 15.2 H, Plt Count 285, MPV 8.3, Immature Gran % (Auto) 0.600, Neut % (Auto) 87.7 H, Lymph % (Auto) 6.7 L, [place] % (Auto) 4.6, Eos % (Auto) 0.1, Baso % (Auto) 0.3, Absolute Neuts (auto) 17.4 H, Absolute Lymphs (auto) 1.32, Nucleated RBC % 0 06/26/21 03:00: Sodium 137, Potassium 4.6, Chloride 109 H, Carbon Dioxide 21.0, Anion Gap 7, BUN 21 H, Creatinine 1.56 H, Estim Creat Clear Calc 36.43, Est GFR (MDRD) Af Amer 55 L, Est GFR (MDRD) Non-Af 45 L, BUN/Creatinine Ratio 13.5, Glucose 117 H, Calcium 7.3 L 06/26/21 03:00: Phosphorus 4.0, Magnesium 1.7 Micro: Microbiology 06/25/21 09:07 Nasal Secretion SARS-CoV-2 Antigen (Rapid) - Final Radiography Diagnostic Testing: Radiology Impression Abdomen/Pelvis CT 06/25/21 08:51 IMPRESSION: Large amount of free intraperitoneal air most likely secondary to ruptured sigmoid diverticulosis. Bilateral renal cysts more prominent on the left side. Bibasilar atelectasis. Electronically Signed: Nick Sylvester MD at 10:56 EST , Service support , Chest X-Ray 06/25/21 08:53 IMPRESSION: Free intraperitoneal air. Correlation with CT scan of the abdomen is recommended. Findings suggestive of atelectasis and/or early infiltrate at the right lung base. Electronically Signed: Nick Sylvester MD at 10:49 EST , Service support , KUB X-Ray 06/25/21 18:15 IMPRESSION: 1. There is a feeding tube/ nasogastric tube noted. The tip is in the region of the stomach. 2. Bilateral pleural effusions. Bilateral pneumonia. 3. Abnormal air collection in the mid abdomen concerning for free air. This was identified on the prior CT scan. Electronically Signed: Ap Garsia MD at 21:33 EST , Service support , Physical Exam Const oriented x3 and no apparent distress Resp normal respiratory effort Cardio regular rate and regular rhythm GI soft to palpation Palpation: tender Assessment & Plan Assessment/Plan (1) Perforated bowel: PLAN: Patient was moved to the ICU overnight due to some hypertension but his blood pressure improved without pressors. Patient is comfortable. I would continue antibiotics and ALLY drain. Continue Casper due to bladder repair. Do not remove for 5 to 7 days. Change packing twice daily. Encouraged ambulation and incentive spirometer. Start Lovenox. Caleb Earl MD Pager: [facility] [address] [place] [address] Outpatient Pavilion, [address] [place] [address] Office:
--- NOTE | 2021-06-26 10:20 | CASEMGMT ---
JENNI SIMON Assessment: Face to Face with pt for initial transition planning/care coordination assessment. JENNI SIMON introduced self and role at [facility], pt voices understanding and consents to assessment. Pt is A/O x4 and answers all questions appropriately at this time. Pt sitting up in bed with NG in and O2 on in no distress. Care providers, pharmacy, and demographics verified/updated. Admitting Dx: perforated bowel PCP:Sumanth Specialists:Noman and ashok ferrer at the [facility], but he is unaware of the name. Preferred Pharmacy: [facility] Insurance: [employer] Prescription Benefit: no LW/HPOA: Pt has a DPOA on file at [facility], it is his Rufina Koehler. He denies having a LW. LNOK: Rufina Koehler, Living Arrangements: Pt lives with and dtr in a single story house with 2 steps to enter without a rail. Pt reports he is I in ADL's and denies concerns at home. Transportation: Pt drives self and denies concerns with transportation. DME/HHC/SNF: Pt has 3 canes in the basement but does not use any AD. Pt denies hx of HHC or SNF stays. Discussed with patient the options as he has an open wound that is being packed, he denies need for HHC adamantly. Pt states he will see how things go but states his could assist with this. Pt states no concerns with going home at time of dc. Pt states no further concerns/needs. CM to follow. Advised pt to ask CM if any further question/concerns/needs arise, voices understanding. Pt Goal: Home Plan: Home, follow for HHC.
[2021-06-26] MEDS: Enoxaparin 40 MG/0.4 ML Syringe SC (11:03)
[2021-06-26] MEDS: OFLOXACIN 5 ML DROPS OPHTHALMIC ×2 (13:52→17:01)
[2021-06-27] VITALS (20 sets, daily range): BP systolic 90–113; BP diastolic 56–71; PULSE 83–96; RESP 14–24; TEMP 36.2–36.9; O2SAT 90–96
[2021-06-27 04:37] LABS: Absolute Lymphocyte Count 1.13 X10^3/uL (0.83-4.51); Absolute Neutrophil Count 15.6 X10^3/uL (2.0-7.7); Basophil# 0.05 X10^3/uL; Basophil% 0.3 % (0-1); Eosinophil# 0.08 X10^3/uL; Eosinophils% 0.4 % (0-5); Hematocrit 29.4 % (40-54); Hemoglobin 9.2 g/dL (13.0-16.5); Lymphocyte # 1.13 X10^3/ul (0.83-4.51); Lymphocyte % 6.2 % (19-41); Mean Corp Hgb Conc 31.3 g/dL (32-36); Mean Corpuscular Hgb 26.1 pg (27.0-32.0); Mean Corpuscular Volume 83.5 fL (80-94); Mean Platelet Vol. 8.2 fl (6.2-12.0); Monocyte% 6.6 % (0-10); NRBC Flagged by Analyzer 0 % (0-5); Neutrophil % 85.9 % (47-70); Platelet Count 262 K/mm3 (150-450); RBC Distribution Width CV 15.5 % (11.6-14.6); Red Blood Count 3.52 M/mm3 (4.6-6.2); White Blood Count 18.2 K/mm3 (4.4-11.0)
[2021-06-27 05:01] LABS: Anion Gap 5 (5-15); BUN 31 mg/dL (7-18); BUN/Creat Ratio 19.5 RATIO (10-20); Calcium,Total 7.7 mg/dL (8.5-10.1); Chloride 111 mmol/L (98-107); Creatinine, Serum 1.59 mg/dL (0.70-1.30); EST Glomerular Filtration Rate 44 mL/min (>60); Est Glom Filt Rate - Afr Amer 53 mL/min (>60); Estimated Creatinine Clearance 36.18 ml/min; Glucose 123 mg/dL (74-106); Potassium 4.4 mmol/L (3.5-5.1); Sodium Level 140 mmol/L (136-145)
--- NOTE | 2021-06-27 06:41 | PCM.PN.INT ---
Assessment & Plan Assessment/Plan (1) Perforated bowel: (2) Ischemic cardiomyopathy: (3) Secondary pulmonary arterial hypertension: (4) CKD (chronic kidney disease) stage 3, GFR 30-59 ml/min: PLAN: RECOMMENDATIONS: 1. KVO IV fluids 2. No need for active diuresis at this time 3. Antibiotics, reinitiation of anticoagulation and p.o. intake per surgery 4. Okay to reinitiate baseline carvedilol 5. Increase activity as tolerated 6. Okay to transfer from the intensive care unit 7. Hemodynamically stable on room air. Will sign off from a critical care perspective IMPRESSIONS: 1. Perforated sigmoid diverticulum status post partial large bowel resection POD #2 Patient appears to be doing okay at this time. Patient does have an NG in place, but has no bowel sounds or flatus to allow for p.o. intake. Patient did have an extensive 4-hour surgery, so insensible losses are likely high. Patient's oxygen status has normalized, along with blood pressure. Antibiotics, reinitiation of anticoagulation and p.o. intake per surgery. Okay to leave the intensive care unit 2. Hypotension Unclear etiology. Patient likely has significant volume shifts given problem #1. Patient did not have to be initiated on pressors. Do anticipate an element of sepsis given bowel perforation, but patient is on antibiotics. No fever has been noted, but patient does have significant leukocytosis. Patient also has ischemic cardiomyopathy and is back to his baseline blood pressure of 90s over 60s. Okay to leave the intensive care unit. Will sign off from a critical care perspective 3. Paroxysmal A. fib/secondary pulmonary artery hypertension/advanced age/ischemic cardiomyopathy/CKD stage III Complicates care, management, recovery and prognosis. Reinitiation of beta-lorie the next 24 to 48 hours. Anticoagulation can be reinitiated per surgery. Clinical suspicion for hypoxia secondary to atelectasis and an element of systolic congestive heart failure. Patient appears to be euvolemic in my opinion Subjective Subjective Patient did well overnight. No acute issues were reported. Patient is not reporting any flatus, but has had some burping. Patient states pain is well controlled. No shortness of breath has been noted. Patient has been able to be weaned to room air. Objective Data Objective Data Vital Signs: Vital Signs Temp Pulse Resp BP Pulse Ox 36.7 C 86 14 95/64 95 06/27/21 00:00 06/27/21 06:00 06/27/21 06:00 06/27/21 06:00 06/27/21 06:00 Oxygen Flow Rate (L/min) 2 Oxygen Delivery Method Room Air Weight: 73.142 kg Body Mass Index (BMI) 22.8 Intake & Output: Intake and Output for Last 24 Hours 06/25/21 06/26/21 06/27/21 23:59 23:59 23:59 Intake Total 3550 / 3550 1725.42 / 1725.42 150 / 150 Output Total 180 / 280 500 / 835 590 / 590 Balance 3370 / 3270 1225.42 / 890.42 -440 / -440 Lab / Micro Data Result Diagrams: 06/27/21 04:30 06/27/21 04:30 Labs: Laboratory Results - last 24 hr 06/27/21 04:30: WBC 18.2 H, RBC 3.52 L, Hgb 9.2 L, Hct 29.4 L, MCV 83.5, MCH 26.1 L, MCHC 31.3 L, RDW Std Deviation 47.0 H, RDW Coeff of Christian[place] 15.5 H, Plt Count 262, MPV 8.2, Immature Gran % (Auto) 0.600, Neut % (Auto) 85.9 H, Lymph % (Auto) 6.2 L, [place] % (Auto) 6.6, Eos % (Auto) 0.4, Baso % (Auto) 0.3, Absolute Neuts (auto) 15.6 H, Absolute Lymphs (auto) 1.13, Nucleated RBC % 0 06/27/21 04:30: Sodium 140, Potassium 4.4, Chloride 111 H, Carbon Dioxide 24.0, Anion Gap 5, BUN 31 H, Creatinine 1.59 H, Estim Creat Clear Calc 36.18, Est GFR (MDRD) Af Amer 53 L, Est GFR (MDRD) Non-Af 44 L, BUN/Creatinine Ratio 19.5, Glucose 123 H, Calcium 7.7 L Micro: Microbiology 06/25/21 09:07 Nasal Secretion SARS-CoV-2 Antigen (Rapid) - Final Physical Exam Const alert, oriented x3 and no apparent distress General Appearance: cooperative HEENT normocephalic, head/scalp atraumatic and moist oral mucous membranes HEENT Narrative: NG in place. Eyes PERRL and EOMs intact bilaterally Neck full ROM and no lymphadenopathy Lymph Lymphatic: no lymphadenopathy noted Chest inspection of chest normal Chest: symmetrical chest wall rise; Negative for crepitus Resp normal respiratory effort Effort and Inspection: actively coughing moist; Negative for uses accessory muscles Auscultation: rales bilateral; Negative for rhonchi or wheezes Cardio regular rate, regular rhythm, S1 normal heart sound and S2 normal heart sound Heart Sounds: murmur systolic II/ GI GI Narrative: No bowel sounds noted. ALLY drain noted with approximately 5 cc Inspection: incision intact and healing well Extremity no clubbing, cyanosis or edema Skin no rashes or lesions noted Neuro CN's II-XII intact bilaterally and no focal motor deficits Psych cooperative and affect normal Appearance: well kejanettt Charges/Coding Visit Charges Inpatient E&M: 96223 Subs Hosp L2
--- NOTE | 2021-06-27 08:37 | PCM.PN.SRG ---
Subjective Subjective Patient reports no flatus and there has been minimal output from the NG. Abdominal pain is well controlled. Objective Data Objective Data Vital Signs: Vital Signs Temp Pulse Resp BP Pulse Ox 98.1 F 83 19 H 97/57 L 94 06/27/21 00:00 06/27/21 07:00 06/27/21 07:00 06/27/21 07:00 06/27/21 07:00 Oxygen Flow Rate (L/min) 2 Oxygen Delivery Method Room Air Weight: 161 lb 4 oz Body Mass Index (BMI) 22.8 Intake & Output: Intake and Output for Last 24 Hours 06/25/21 06/26/21 06/27/21 23:59 23:59 23:59 Intake Total 3550 / 3550 1725.42 / 1725.42 150 / 150 Output Total 180 / 280 500 / 835 590 / 590 Balance 3370 / 3270 1225.42 / 890.42 -440 / -440 Lab / Micro Data Result Diagrams: 06/27/21 04:30 06/27/21 04:30 Labs: Laboratory Results - last 24 hr 06/27/21 04:30: WBC 18.2 H, RBC 3.52 L, Hgb 9.2 L, Hct 29.4 L, MCV 83.5, MCH 26.1 L, MCHC 31.3 L, RDW Std Deviation 47.0 H, RDW Coeff of [place] 15.5 H, Plt Count 262, MPV 8.2, Immature Gran % (Auto) 0.600, Neut % (Auto) 85.9 H, Lymph % (Auto) 6.2 L, [place] % (Auto) 6.6, Eos % (Auto) 0.4, Baso % (Auto) 0.3, Absolute Neuts (auto) 15.6 H, Absolute Lymphs (auto) 1.13, Nucleated RBC % 0 06/27/21 04:30: Sodium 140, Potassium 4.4, Chloride 111 H, Carbon Dioxide 24.0, Anion Gap 5, BUN 31 H, Creatinine 1.59 H, Estim Creat Clear Calc 36.18, Est GFR (MDRD) Af Amer 53 L, Est GFR (MDRD) Non-Af 44 L, BUN/Creatinine Ratio 19.5, Glucose 123 H, Calcium 7.7 L Micro: Microbiology 11/12/21 09:07 Nasal Secretion SARS-CoV-2 Antigen (Rapid) - Final Physical Exam Const oriented x3 and no apparent distress Resp normal respiratory effort GI soft to palpation and non-tender Assessment & Plan Assessment/Plan (1) Perforated bowel: PLAN: Patient seems to be doing well. His hemoglobin is stable and his blood pressure stable. I will transfer him out of the ICU today. Continue NG and IV fluids and IV antibiotics. Continue Casper. Caleb Earl MD Pager: [facility] [place] [facility] [address] [place] [address], [address] [place] [address] Office:
[2021-06-27] MEDS: Enoxaparin 40 MG/0.4 ML Syringe SC (09:30)
[2021-06-27] MEDS: OFLOXACIN 5 ML DROPS OPHTHALMIC ×4 (09:31→22:04)
--- NOTE | 2021-06-27 13:03 | NURSING ---
Paged Dr. Earl via [email or web address] to ask him if he wanted IV fluids since he is npo. Dr. Earl says that yesterday Dr. Stark stopped fluids b/c Dr. Stark thought pt was in fluid overload.
--- NOTE | 2021-06-27 20:13 | PCS.PANDOC ---
PANDEMIC DOCUMENTATION INITIATED: Date: 06/27/21 Time: 1899
[2021-06-28] VITALS (10 sets, daily range): BP systolic 109–123; BP diastolic 64–73; PULSE 67–97; RESP 16–18; TEMP 36.3–36.4; O2SAT 94–97
[2021-06-28 06:13] LABS: Absolute Lymphocyte Count 1.25 X10^3/uL (0.83-4.51); Absolute Neutrophil Count 11.5 X10^3/uL (2.0-7.7); Basophil# 0.04 X10^3/uL; Basophil% 0.3 % (0-1); Eosinophil# 0.31 X10^3/uL; Eosinophils% 2.2 % (0-5); Hematocrit 28.9 % (40-54); Hemoglobin 9.3 g/dL (13.0-16.5); Lymphocyte # 1.25 X10^3/ul (0.83-4.51); Lymphocyte % 8.8 % (19-41); Mean Corp Hgb Conc 32.2 g/dL (32-36); Mean Corpuscular Volume 83.8 fL (80-94); Mean Platelet Vol. 8.4 fl (6.2-12.0); Monocyte# 0.98 X10^3/uL; Monocyte% 6.9 % (0-10); NRBC Flagged by Analyzer 0 % (0-5); Neutrophil # 11.51 X10^3/uL (2.7-7.7); Neutrophil % 81.4 % (47-70); Platelet Count 303 K/mm3 (150-450); RBC Distribution Width CV 15.7 % (11.6-14.6); RBC Distribution Width SD 47.4 fl (35.1-43.9); Red Blood Count 3.45 M/mm3 (4.6-6.2); White Blood Count 14.2 K/mm3 (4.4-11.0)
[2021-06-28 06:42] LABS: Anion Gap 7 (5-15); BUN 32 mg/dL (7-18); BUN/Creat Ratio 24.2 RATIO (10-20); Chloride 111 mmol/L (98-107); Creatinine, Serum 1.32 mg/dL (0.70-1.30); EST Glomerular Filtration Rate 55 mL/min (>60); Est Glom Filt Rate - Afr Amer 66 mL/min (>60); Estimated Creatinine Clearance 42.36 ml/min; Glucose 95 mg/dL (74-106); Potassium 4.1 mmol/L (3.5-5.1); Sodium Level 141 mmol/L (136-145)
--- NOTE | 2021-06-28 08:00 | PCM.PN.SRG ---
Subjective Subjective Patient had minimal output from his NG and his abdomen is soft and he is not complaining of any pain. He is still not passing any flatus. Objective Data Objective Data Vital Signs: Vital Signs Temp Pulse Resp BP Pulse Ox 97.4 F L 81 18 112/64 94 06/28/21 02:47 06/28/21 03:00 06/28/21 02:47 06/28/21 02:47 06/28/21 02:47 Oxygen Flow Rate (L/min) 2 Oxygen Delivery Method Room Air Weight: 161 lb 6.054 oz Body Mass Index (BMI) 22.8 Intake & Output: Intake and Output for Last 24 Hours 06/26/21 06/27/21 06/28/21 23:59 23:59 23:59 Intake Total 1725.42 / 1725.42 430 / 430 120 / 120 Output Total 500 / 835 1515 / 1515 550 / 550 Balance 1225.42 / 890.42 -1085 / -1085 -430 / -430 Lab / Micro Data Result Diagrams: 06/28/21 04:56 06/28/21 04:56 Labs: Laboratory Results - last 24 hr 06/28/21 04:56: WBC 14.2 H, RBC 3.45 L, Hgb 9.3 L, Hct 28.9 L, MCV 83.8, MCH 27.0, MCHC 32.2, RDW Std Deviation 47.4 H, RDW Coeff of Christiano 15.7 H, Plt Count 303, MPV 8.4, Immature Gran % (Auto) 0.400, Neut % (Auto) 81.4 H, Lymph % (Auto) 8.8 L, Bland % (Auto) 6.9, Eos % (Auto) 2.2, Baso % (Auto) 0.3, Absolute Neuts (auto) 11.5 H, Absolute Lymphs (auto) 1.25, Nucleated RBC % 0 06/28/21 04:56: Sodium 141, Potassium 4.1, Chloride 111 H, Carbon Dioxide 23.0, Anion Gap 7, BUN 32 H, Creatinine 1.32 H, Estim Creat Clear Calc 42.36, Est GFR (MDRD) Af Amer 66, Est GFR (MDRD) Non-Af 55 L, BUN/Creatinine Ratio 24.2 H, Glucose 95, Calcium 8.0 L Micro: Microbiology 06/25/21 09:07 Nasal Secretion SARS-CoV-2 Antigen (Rapid) - Final Physical Exam Const oriented x3 and no apparent distress Resp normal respiratory effort Cardio regular rate and regular rhythm GI soft to palpation and non-tender Assessment & Plan Assessment/Plan (1) Perforated bowel: PLAN: Patient's abdomen is soft and nontender and his white count is decreasing nicely. There is minimal output from the NG so I will remove that but I will keep him n.p.o. until he starts passing flatus. Continue Casper and ALLY. I will resume his anticoagulation. Caleb Earl MD Pager: [facility] [address] [place] [address], [address] [place] [address] Office:
[2021-06-28] MEDS: OFLOXACIN 5 ML DROPS OPHTHALMIC ×3 (08:15→18:37)
[2021-06-28] MEDS: Carvedilol 6.25 MG Tablet PO ×2 (08:16→22:48)
[2021-06-28] MEDS: APIXABAN 2.5 MG TABLET PO ×2 (11:08→22:49)
[2021-06-29] VITALS (10 sets, daily range): BP systolic 99–123; BP diastolic 57–70; PULSE 68–80; RESP 16–20; TEMP 36.4–36.9; O2SAT 93–97
[2021-06-29 07:07] LABS: Absolute Lymphocyte Count 1.11 X10^3/uL (0.83-4.51); Absolute Neutrophil Count 9.2 X10^3/uL (2.0-7.7); Basophil# 0.07 X10^3/uL; Basophil% 0.6 % (0-1); Eosinophil# 0.35 X10^3/uL; Hematocrit 28.2 % (40-54); Hemoglobin 8.9 g/dL (13.0-16.5); Lymphocyte # 1.11 X10^3/ul (0.83-4.51); Lymphocyte % 9.6 % (19-41); Mean Corp Hgb Conc 31.6 g/dL (32-36); Mean Corpuscular Hgb 26.4 pg (27.0-32.0); Mean Corpuscular Volume 83.7 fL (80-94); Monocyte# 0.86 X10^3/uL; Monocyte% 7.4 % (0-10); NRBC Flagged by Analyzer 0 % (0-5); Neutrophil # 9.19 X10^3/uL (2.7-7.7); Neutrophil % 79.1 % (47-70); Platelet Count 262 K/mm3 (150-450); RBC Distribution Width CV 15.7 % (11.6-14.6); RBC Distribution Width SD 47.5 fl (35.1-43.9); Red Blood Count 3.37 M/mm3 (4.6-6.2); White Blood Count 11.6 K/mm3 (4.4-11.0)
[2021-06-29 07:32] LABS: Anion Gap 8 (5-15); BUN 31 mg/dL (7-18); BUN/Creat Ratio 25.8 RATIO (10-20); Chloride 112 mmol/L (98-107); EST Glomerular Filtration Rate 61 mL/min (>60); Est Glom Filt Rate - Afr Amer 74 mL/min (>60); Estimated Creatinine Clearance 45.52 ml/min; Glucose 91 mg/dL (74-106); Sodium Level 144 mmol/L (136-145)
[2021-06-29] MEDS: Carvedilol 6.25 MG Tablet PO ×2 (10:24→20:20)
[2021-06-29] MEDS: APIXABAN 2.5 MG TABLET PO ×2 (10:24→20:21)
[2021-06-29] MEDS: OFLOXACIN 5 ML DROPS OPHTHALMIC ×4 (10:25→20:19)
--- NOTE | 2021-06-29 12:09 | PCM.PN.SRG ---
Subjective Subjective The patient has not had any nausea vomiting since removing the NG but he is still not passing any flatus. No abdominal pain. Objective Data Objective Data Vital Signs: Vital Signs Temp Pulse Resp BP Pulse Ox 97.6 F L 80 18 115/65 93 06/29/21 08:11 06/29/21 08:11 06/29/21 08:11 06/29/21 08:11 06/29/21 08:11 Oxygen Flow Rate (L/min) 2 Oxygen Delivery Method Room Air Weight: 157 lb 10.088 oz Body Mass Index (BMI) 22.8 Intake & Output: Intake and Output for Last 24 Hours 06/27/21 06/28/21 06/29/21 23:59 23:59 23:59 Intake Total 430 / 430 730 / 870 400 / 400 Output Total 1515 / 1515 1085 / 1485 765 / 765 Balance -1085 / -1085 -355 / -615 -365 / -365 Lab / Micro Data Result Diagrams: 06/29/21 06:55 06/29/21 06:55 Labs: Laboratory Results - last 24 hr 06/29/21 06:55: WBC 11.6 H, RBC 3.37 L, Hgb 8.9 L, Hct 28.2 L, MCV 83.7, MCH 26.4 L, MCHC 31.6 L, RDW Std Deviation 47.5 H, RDW Coeff of Christiano 15.7 H, Plt Count 262, MPV 8.0, Immature Gran % (Auto) 0.300, Neut % (Auto) 79.1 H, Lymph % (Auto) 9.6 L, Kent % (Auto) 7.4, Eos % (Auto) 3.0, Baso % (Auto) 0.6, Absolute Neuts (auto) 9.2 H, Absolute Lymphs (auto) 1.11, Nucleated RBC % 0 06/29/21 06:55: Sodium 144, Potassium 4.0, Chloride 112 H, Carbon Dioxide 24.0, Anion Gap 8, BUN 31 H, Creatinine 1.20, Estim Creat Clear Calc 45.52, Est GFR (MDRD) Af Amer 74, Est GFR (MDRD) Non-Af 61, BUN/Creatinine Ratio 25.8 H, Glucose 91, Calcium 8.0 L Micro: Microbiology 06/25/21 09:07 Nasal Secretion SARS-CoV-2 Antigen (Rapid) - Final Physical Exam Const oriented x3 and no apparent distress Resp normal respiratory effort Cardio regular rate and regular rhythm GI soft to palpation and non-tender Inspection: Negative for abdominal distention Assessment & Plan Assessment/Plan (1) Perforated bowel: PLAN: Patient has still not passed any flatus. His abdomen is soft and nondistended. His ALLY output is minimal and his urine output is good. Once he starts passing flatus I will advance his diet. Continue antibiotics. Caleb Earl MD Pager: [facility] [address] [place] [address], [address] [place] [address] Office:
[2021-06-30] VITALS (7 sets, daily range): BP systolic 96–122; BP diastolic 64–72; PULSE 66–74; RESP 16; TEMP 36.6–36.7; O2SAT 93–96
[2021-06-30 08:04] LABS: Absolute Lymphocyte Count 1.02 X10^3/uL (0.83-4.51); Absolute Neutrophil Count 6.6 X10^3/uL (2.0-7.7); Basophil# 0.04 X10^3/uL; Basophil% 0.4 % (0-1); Eosinophil# 0.31 X10^3/uL; Eosinophils% 3.5 % (0-5); Hematocrit 28.7 % (40-54); Lymphocyte # 1.02 X10^3/ul (0.83-4.51); Lymphocyte % 11.4 % (19-41); Mean Corp Hgb Conc 31.4 g/dL (32-36); Mean Corpuscular Hgb 26.2 pg (27.0-32.0); Mean Corpuscular Volume 83.4 fL (80-94); Mean Platelet Vol. 8.2 fl (6.2-12.0); Monocyte# 0.88 X10^3/uL; Monocyte% 9.9 % (0-10); NRBC Flagged by Analyzer 0 % (0-5); Neutrophil # 6.64 X10^3/uL (2.7-7.7); Neutrophil % 74.4 % (47-70); Platelet Count 287 K/mm3 (150-450); RBC Distribution Width CV 15.5 % (11.6-14.6); RBC Distribution Width SD 47.1 fl (35.1-43.9); Red Blood Count 3.44 M/mm3 (4.6-6.2); White Blood Count 8.9 K/mm3 (4.4-11.0)
[2021-06-30 08:19] LABS: Anion Gap 5 (5-15); BUN 27 mg/dL (7-18); BUN/Creat Ratio 23.5 RATIO (10-20); Calcium,Total 8.1 mg/dL (8.5-10.1); Chloride 109 mmol/L (98-107); Creatinine, Serum 1.15 mg/dL (0.70-1.30); EST Glomerular Filtration Rate 64 mL/min (>60); Est Glom Filt Rate - Afr Amer 78 mL/min (>60); Estimated Creatinine Clearance 49.75 ml/min; Glucose 120 mg/dL (74-106); Potassium 3.6 mmol/L (3.5-5.1); Sodium Level 140 mmol/L (136-145)
[2021-06-30] MEDS: APIXABAN 2.5 MG TABLET PO ×2 (10:08→20:42)
[2021-06-30] MEDS: Carvedilol 6.25 MG Tablet PO ×2 (10:08→20:41)
[2021-06-30] MEDS: OFLOXACIN 5 ML DROPS OPHTHALMIC ×4 (10:08→20:42)
--- NOTE | 2021-06-30 10:27 | PCM.PN.SRG ---
Subjective Subjective Patient started passing flatus yesterday afternoon was started on clear liquid diet which he tolerated well with no nausea or vomiting. Objective Data Objective Data Vital Signs: Vital Signs Temp Pulse Resp BP Pulse Ox 98.0 F 66 16 122/72 H 95 06/30/21 07:48 06/30/21 07:48 06/30/21 07:48 06/30/21 07:48 06/30/21 07:48 Oxygen Flow Rate (L/min) 2 Oxygen Delivery Method Room Air Weight: 165 lb 2.02 oz Body Mass Index (BMI) 22.8 Intake & Output: Intake and Output for Last 24 Hours 06/28/21 06/29/21 06/30/21 23:59 23:59 23:59 Intake Total 730 / 870 858 / 858 50 / 50 Output Total 1085 / 1485 1018 / 1276 758 / 758 Balance -355 / -615 -160 / -418 -708 / -708 Lab / Micro Data Result Diagrams: 06/30/21 07:50 06/30/21 07:50 Labs: Laboratory Results - last 24 hr 06/30/21 07:50: WBC 8.9, RBC 3.44 L, Hgb 9.0 L, Hct 28.7 L, MCV 83.4, MCH 26.2 L, MCHC 31.4 L, RDW Std Deviation 47.1 H, RDW Coeff of Christiano 15.5 H, Plt Count 287, MPV 8.2, Immature Gran % (Auto) 0.400, Neut % (Auto) 74.4 H, Lymph % (Auto) 11.4 L, Dale % (Auto) 9.9, Eos % (Auto) 3.5, Baso % (Auto) 0.4, Absolute Neuts (auto) 6.6, Absolute Lymphs (auto) 1.02, Nucleated RBC % 0 06/30/21 07:50: Sodium 140, Potassium 3.6, Chloride 109 H, Carbon Dioxide 26.0, Anion Gap 5, BUN 27 H, Creatinine 1.15, Estim Creat Clear Calc 49.75, Est GFR (MDRD) Af Amer 78, Est GFR (MDRD) Non-Af 64, BUN/Creatinine Ratio 23.5 H, Glucose 120 H, Calcium 8.1 L Micro: Microbiology 06/25/21 09:07 Nasal Secretion SARS-CoV-2 Antigen (Rapid) - Final Physical Exam Const no apparent distress Resp normal respiratory effort Cardio regular rate and regular rhythm GI soft to palpation and non-tender Assessment & Plan Assessment/Plan (1) Perforated bowel: PLAN: Patient's white count is normal and he is starting to pass flatus. He tolerated clear liquids and I will advance her transitional diet. Stop antibiotics. Continue ALLY and Casper for 1 more day and possibly remove tomorrow. Caleb Earl MD Pager: [facility] [address] [place] [address], [address] [place] [address] Office:
--- NOTE | 2021-06-30 12:22 | CASEMGMT ---
RN CM in room to discuss dc plans. Pt states he is doing well. He states he will be going to surgery to have his wound closed. He does not feel at this time that he needs C SN or therapy. He states that he has been ambulating in the halls approx 4x/day and he is doing well. Noted that PT and OT are recommending additional therapy. Will follow with patient.
--- NOTE | 2021-06-30 18:13 | NURSING ---
reviewed documentation by Malcom Dodge, student RN
[2021-07-01 03:03] VITALS: BP 111/69; PULSE 69; RESP 16; TEMP 36.7; O2SAT 93
[2021-07-01 08:36] VITALS: BP 116/75; PULSE 70; RESP 20; TEMP 36.4; O2SAT 96
[2021-07-01 09:02] VITALS: O2SAT 96
[2021-07-01] MEDS: OFLOXACIN 5 ML DROPS OPHTHALMIC ×2 (09:36→13:00)
[2021-07-01] MEDS: APIXABAN 2.5 MG TABLET PO (09:36)
[2021-07-01] MEDS: Carvedilol 6.25 MG Tablet PO (09:36)
[2021-07-01 09:55] VITALS: O2SAT 96
[2021-07-01] MEDS: 0.9% Saline Lock 10 ML Syringe IV (10:01)
--- NOTE | 2021-07-01 11:12 | PN_ITS ---
Progress Note Patient is doing well and tolerating a regular diet. I removed his ALLY drain and I placed several interrupted 4-0 Monocryl sutures in his incision to bring the edges together as well as Steri-Strips. Patient was instructed to change the gauze daily. I will discharge the patient home today and follow-up with him Monday for Casper removal. Caleb Earl MD Pager: [facility] [address] [place] [address] [address] [place] [address] Office:
--- NOTE | 2021-07-01 11:12 | DS.PCM_ITS ---
Providers Date of Admission: 06/25/21 Primary Care Physician: Dr. Aroldo Julio MD Consultations 06/26/21 02:34 Consult: [facility]ner / Pulmonary Medicine Routine Consulting Provider: Pulmonary Medicine omi Pierce Reason for Consult: intensive care EMERGENT Consult: No MD Notified: Yes Date Notified: 06/26/21 Time Notified: 02:15 Method of Notification: Verbal Reason For Visit: PERFORATED BOWEL Diagnosis Discharge Diagnosis (1) Perforated bowel: Status: Acute Code(s): K63.1 - Perforation of intestine (nontraumatic) Medications at Discharge Home Medications cholecalciferol (vitamin D3) 25 mcg (1,000 unit) capsule 25 mcg PO DAILY 12/19/19 carvedilol 6.25 mg tablet 6.25 mg PO BID #180 tab 06/18/20 apixaban 2.5 mg tablet 2.5 mg PO BID 05/07/21 acetaminophen [Tylenol] 650 mg PO Q4H PRN PRN #0 tab 07/01/21 Hospital Course Operations colectomy Summary of Care Provided Hospital Course: Patient was admitted with perforated colon and taken to surgery where he had resection of the sigmoid colon and a large abscess cavity adherent to the bladder. Patient had anastomosis with repair of bladder wall and Leger was kept in place. He was taken to PACU and up to the floor and once he was passing flatus he was started on a diet which he tolerated well. He will not be discharged home. Weight / BMI Weight Weight: 157 lb 3.033 oz Body Mass Index (BMI) 22.8 ABG / Lab / Microbiology Data Result Diagrams: 06/30/21 07:50 06/30/21 07:50 Microbiology: Microbiology 06/25/21 09:07 Nasal Secretion SARS-CoV-2 Antigen (Rapid) - Final D/C Instructions Discharge Diet: Light diet - advance as tolerated Discharge Activity: May Shower Lifting Restrictions: 10 lbs for 4 weeks Call your doctor if your incision/area has: Continuous Slow Oozing, Sudden Increased Bleeding, Increased Pain/ Swelling, Increased Redness, Foul Smelling Discharge and Swelling at the incision site Call your doctor if you observe: Fever of 101 or Higher Change Dressing in: 1 day (daily) Cleanse incision/area with: Soap & Water Catheter: Elger to leg bag Please Follow Up With: Caleb Earl MD When: Monday for leger removal. [phone] Meaningful Use Info Meaningful Use Diagnoses (Choose all that apply): None applicable Discharge Plan Admission Admit Date/Time: 06/25/21 17:36 Attending Provider: Caleb Earl Primary Care Provider: Aroldo Julio Consulting Providers: Luciano Stark ; Amadou Amos ; Violeta Rincon [employer] Discharge Orders/Prescriptions Prescriptions: New acetaminophen [Tylenol] 325 mg Tablet 650 mg PO Q4H PRN PRN (Reason: PAIN/FEVER) Qty: 0 RF: 0 Continued cholecalciferol (vitamin D3) 25 mcg (1,000 unit) capsule 25 mcg PO DAILY RF: 0 carvedilol 6.25 mg tablet 6.25 mg PO BID Qty: 180 RF: 3 Eliquis 2.5 mg tablet 2.5 mg PO BID RF: 0 Referrals / Follow Up: Caleb Earl MD [STAFF PHYSICIAN] - 07/05/21 8:30 am Aroldo Julio MD [Primary Care Provider] - Disposition Disposition (needs filled in before D/C Order can be placed): Home, Self Care
--- NOTE | 2021-07-01 11:31 | CASEMGMT ---
JENNI CM in to pt room, pt has dc in. Pt sitting up in bed and states he is doing well. He states he feels he can manage his abd incision/wound at home without HHC. He states he will follow up Monday with Dr. Earl on the catheter and denies need for HHC for this. Pt is aware, should he get home and change his mind he could contact his PCP. Pt denies further needs at this time.
[2021-07-01] MEDS: Lidocaine 1% (30 ml sdv) 30 ML Vial INFILT (11:39)
[2021-07-01 12:30] VITALS: BP 125/83; PULSE 80; RESP 16; TEMP 36.3; O2SAT 95
== END 2021-07-01 13:22 | disposition home or self-care (01) | DRG 330 ==
LOC: ED 11:58 → SDC 12:33 → AC 12:35 → MS2 12:47 → SDC 17:44 → MS2 17:44 → ICU 06-26 02:12 → MS3 06-27 10:48
PROVIDERS: Internal Medicine Critical Care Medicine; Admitting Provider Surgery; Emergency Provider Emergency Medicine; PCP Family Medicine; Visit Provider Surgery
PROC: 0DTN0ZZ Resection of Sigmoid Colon, Open Approach (ICD-10-PCS; principal; 2021-06-25 17:25)
DX: K57.20 Diverticulitis of large intestine with perforation and abscess without bleeding (principal); I47.2 Ventricular tachycardia; I48.19 Other persistent atrial fibrillation; J98.11 Atelectasis; I25.10 Atherosclerotic heart disease of native coronary artery without angina pectoris; N18.31 Chronic kidney disease, stage 3a; E78.5 Hyperlipidemia, unspecified; I25.5 Ischemic cardiomyopathy; I27.21 Secondary pulmonary arterial hypertension; I95.9 Hypotension, unspecified; Z95.1 Presence of aortocoronary bypass graft; Z95.810 Presence of automatic (implantable) cardiac defibrillator; Z79.01 Long term (current) use of anticoagulants; Z79.899 Other long term (current) drug therapy; Z87.891 Personal history of nicotine dependence; Z86.73 Personal history of transient ischemic attack (TIA), and cerebral infarction without residual deficits
CPT/HCPCS: 36415; 71045; 74018; 74177; 80048; 80053; 81001; 83605; 83690; 83735; 84100; 84484; 85014; 85018; 85025; 86850; 86900; 86901; 87426; 88305; 88307; 93005; 97110; 97162; 97166; 97530; 97535; 99251; 99285; J7030; J7050; J7120; Q9967; A4216; G0463; J2405; Q9968

== ENCOUNTER 2021-09-28 16:35 | Outpatient (CLI) | payer MEDICARE, SELFPAY | END 2021-09-28 23:59 | disposition home or self-care (01) | LOC: LABSPEC 16:37 | PROVIDERS: PCP Family Medicine; Visit Provider Urology | DX: R31.9 Hematuria, unspecified (principal) | CPT/HCPCS: 87086; 87088; 87186 ==

== ENCOUNTER 2022-06-09 19:58 | Emergency (ER) | payer MEDICARE, SELFPAY ==
[2022-06-09 19:59] VITALS: BP 146/88; PULSE 84; RESP 16; TEMP 36.6; O2SAT 94; BMI 24.0
[2022-06-09] MEDS: HYDROcodone Bitartrate/Apap 5/325 Tablet PO (20:26)
--- NOTE | 2022-06-09 20:26 | EDS_ITS ---
HPI History of Present Illness Chief Complaint: Fall Informant: patient Narrative Narrative: This is a very pleasant 87-year-old male presenting to the emergency department following a fall. He states that he was blowing leaves this morning when he stepped backwards tripping over a stake and falling onto the concrete in the driveway. He denies any head neck or back pain. He notes a skin tear to the left elbow which his daughter helped him dress. He also notes pain in the left hip. He has been able to bear weight but is having to use a cane because of the pain. He is on Eliquis for which she states he takes for a TIA but he also has a history of paroxysmal A. fib. Tetanus Immunization: 5-[address] [facility] Medical History Abnormal electrocardiogram [ECG] [EKG] Atherosclerotic heart disease of [place] coronary artery without angina pectoris Cardiology follow-up encounter CKD (chronic kidney disease) stage 3, GFR 30-59 ml/min Encounter for long-term current use of high risk medication High cholesterol History of echocardiogram History of stress test Hyperlipidemia Hypertension Injury of head and neck Ischemic cardiomyopathy Non-sustained ventricular tachycardia Palpitations Paroxysmal atrial fibrillation Persistent atrial fibrillation Secondary pulmonary arterial hypertension Transient ischemic attack Wears glasses Home Medications cholecalciferol (vitamin D3) 25 mcg (1,000 unit) capsule 25 mcg PO DAILY VITAMIN SUPPLEMENT 12/19/19 [History Last Taken Unknown] apixaban 2.5 mg tablet (Eliquis) 2.5 mg PO BID BLOOD THINNER 05/07/21 [History Last Taken Unknown] carvedilol 6.25 mg tablet 6.25 mg PO BID HEART #180 tabs 09/14/21 [Rx Last Taken Unknown] Allergy/AdvReac Type Severity Reaction Status Date / Time No Known Allergies Allergy Verified 06/09/22 20:01 Family History Father CAD (coronary artery disease), Onset Age: 55 Mother , unknown cause No problems noted. Brother CAD (coronary artery disease) History of coronary artery bypass graft x 3 Brother Cancer Brother Unknown whether patient has any health problems Brother , unknown causes No problems noted. 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) History of implantable cardiac defibrillator (ICD) History of umbilical hernia repair Hx of bilateral cataract extraction Presence of implantable cardioverter-defibrillator (ICD) (05/25/11) Status post laparoscopic colectomy Social History Smoking Status: Never smoker alcohol intake: never caffeine: Yes Type: coffee Number of servings: 2 ROS ROS ED Constitutional Constitutional ED: Denies chills or weight loss Eyes Eyes: Denies change in vision or diplopia ENT ENT ED: Denies ear pain, rhinorrhea or sore throat Cardiovascular Cardiovascular: Denies chest pain, orthopnea, palpitations or racing heartbeat Respiratory/Chest Respiratory/Chest: Denies cough, dyspnea or orthopnea Gastrointestinal Gastrointestinal: Denies abdominal pain, diarrhea, nausea or vomiting Genitourinary Genitourinary ED: Denies dysuria, hematuria or urinary frequency Musculoskeletal Musculoskeletal: Reports other Details: Left hip pain ; Denies arthralgias or myalgias Integumentary Reports other Details: Skin tear left elbow ; Denies abscess or rash Neurologic Neurologic: Denies headache(s) or weakness Psychiatric Psychiatric: Denies anxiety, depression, suicidal ideation or suicidal thoughts Endocrine Endocrinology: Denies polydipsia, polyphagia or polyuria Allergic/Immunologic Allergic/Immunologic ED: Denies mouth swelling, tongue swelling or urticaria EXAM Physical Exam Const Vital Signs: 06/09/22 19:59 06/09/22 20:08 Temperature 97.8 F Temperature Source Temporal Pulse Rate 84 Respiratory Rate 16 Respiratory Depth Normal Respiratory Pattern Normal Blood Pressure 146/88 H Blood Pressure Mean 107 Pulse Ox 94 Oxygen Delivery Method Room Air Room Air Positive well nourished and well developed General Appearance ED: well developed HEENT Reports normocephalic, head/scalp atraumatic and moist mucous membranes Eyes PERRL and EOMs intact bilaterally Neck no lymphadenopathy, supple and no JVD Resp normal respiratory effort and clear to auscultation bilaterally Cardio regular rate, regular rhythm and no murmurs GI normal to inspection, nondistended, normoactive bowel sounds and non-tender Palpation: soft Back/Spine no CVA tenderness and normal ROM Extremity Extremity Narrative: The patient has tenderness to palpation over the greater trochanter of the left hip. He has pain with logroll. He can bear weight. The left elbow demonstrates a 6 cm skin tear. The wound edges are very well approximated and it appears clean. The skin around the injury is concussed. General Extremety ED: Negative for edema General Extremity: Negative for edema Neuro oriented x3 and CN's II-XII intact bilaterally Sensorium / Orientation: alert Motor Exam: strength 5/5 throughout Psych mental status grossly normal Mood & Affect: Negative for depressed or tearful Skin no rashes or lesions noted and no wounds MDM MDM MDM Narrative Medical decision making narrative: There was still some active bleeding on the wound but most of the wound was no longer bleeding. I applied Dermabond to the nonbleeding area to give it support to continue to adhere to the wound edges. It was then dressed with Telfa and Coban. My impression of the plain films of the left hip is Discharge Plan Triage Chief Complaint: Fall ED Provider: Willie Corral Dx/Rx/DC Orders Clinical Impression: Contusion of left hip, Chronic anticoagulation, Skin tear of left upper extremity, Fall Prescriptions: No Action cholecalciferol (vitamin D3) 25 mcg (1,000 unit) capsule 25 mcg PO DAILY Eliquis 2.5 mg tablet 2.5 mg PO BID Label Comments: LAST DOSE 11/07/21 carvedilol 6.25 mg tablet 6.25 mg PO BID Qty: 180 3RF Primary Care Provider: Aroldo Julio Referrals: Aroldo Julio MD [Primary Care Provider] -
--- NOTE | 2022-06-09 20:40 | RAD_ITS ---
EXAM: XR LEFT HIP WITH PELVIS WHEN PERFORMED, 2 OR 3 VIEWS CLINICAL INDICATION: injury TECHNIQUE: Two or three views of the left hip with pelvis when performed. This report was created using [employer] report generation technology. COMPARISON: None. FINDINGS: BONES/JOINTS: Unremarkable. No displaced fracture. No destructive or sclerotic lesions. Note that overlapping bowel shadows may however obscure fine detail. Sacroiliac joint is unremarkable. No widening of the pubic symphysis. The articular structures are unremarkable. SOFT TISSUES: Unremarkable. No soft tissue swelling or gas. RAD/HIP, UNI W/ Pelvis 2-3 Views IMPRESSION: No evidence of displaced pelvic or hip fracture. Electronically Signed: Walter Santiago MD at 21:13 EDT ,
== END 2022-06-09 21:11 | disposition home or self-care (01) ==
PROVIDERS: Emergency Provider Emergency Medicine; PCP Family Medicine; Visit Provider Emergency Medicine
DX: S70.02XA Contusion of left hip, initial encounter (principal); I48.0 Paroxysmal atrial fibrillation; S51.012A Laceration without foreign body of left elbow, initial encounter; W18.09XA Striking against other object with subsequent fall, initial encounter; Y93.H1 Activity, digging, shoveling and raking; I25.10 Atherosclerotic heart disease of native coronary artery without angina pectoris; I10 Essential (primary) hypertension; E78.00 Pure hypercholesterolemia, unspecified; Z95.1 Presence of aortocoronary bypass graft; Z95.810 Presence of automatic (implantable) cardiac defibrillator; Z79.01 Long term (current) use of anticoagulants; Z79.899 Other long term (current) drug therapy
CPT/HCPCS: 73502; 99283

== ENCOUNTER → 2022-08-16 | Outpatient (CLI) | payer MEDICARE, SELFPAY ==
--- NOTE | 2022-08-16 11:06 | RAD_ITS ---
STUDY: X-RAY CHEST REASON FOR EXAM: Male, 87 years old. Hemoptysis. TECHNIQUE: Frontal and lateral views of the chest. COMPARISON: June 25, 2021. FINDINGS: Hyperinflation with scattered healed granulomatous calcifications. No focal consolidation. There is no demonstrated pleural abnormality. Stable cardiomegaly with sternotomy wires, changes of coronary artery bypass grafting and dual lead cardiac pacer. Normal mediastinum and yony. Normal visualized pulmonary arteries. Normal visualized aortic arch and descending thoracic aorta. Normal visualized thoracic spine. Normal visualized ribs, clavicles, and shoulders. Resolution of pneumoperitoneum noted on prior study. RAD/Chest PA and Lateral IMPRESSION: Resolution of pneumoperitoneum. Cardiomegaly with hyperinflation and no acute findings. Electronically Signed: Diego Craig, at 11:58 EST ,
[2022-08-16 11:36] LABS: Absolute Neutrophil Count 4.6 X10^3/uL (2.0-7.7); Basophil# 0.08 X10^3/uL; Eosinophil# 0.11 X10^3/uL; Eosinophils% 1.4 % (0-5); Hematocrit 43.8 % (40-54); Hemoglobin 14.1 g/dL (13.0-16.5); Lymphocyte % 30.8 % (19-41); Mean Corp Hgb Conc 32.2 g/dL (32-36); Mean Corpuscular Hgb 29.6 pg (27.0-32.0); Mean Corpuscular Volume 91.8 fL (80-94); Mean Platelet Vol. 8.8 fl (6.2-12.0); Monocyte# 0.77 X10^3/uL; Monocyte% 9.5 % (0-10); NRBC Flagged by Analyzer 0 % (0-5); Neutrophil # 4.62 X10^3/uL (2.7-7.7); Neutrophil % 56.9 % (47-70); Platelet Count 186 K/mm3 (150-450); RBC Distribution Width CV 12.8 % (11.6-14.6); RBC Distribution Width SD 43.6 fl (35.1-43.9); Red Blood Count 4.77 M/mm3 (4.6-6.2); White Blood Count 8.1 K/mm3 (4.4-11.0)
[2022-08-16 12:33] LABS: BUN 41 mg/dL (7-18); Creatinine, Serum 1.82 mg/dL (0.70-1.30); Glucose 106 mg/dL (74-106)
[2022-08-16 12:34] LABS: ALB/GLOB Ratio 0.7 RATIO (0.9-2.4); AST(SGOT) 14 U/L (15-37); Alanine Aminotransfer ALT/SGPT 19 U/L (16-61); Albumin, Serum 3.3 g/dL (3.2-5.0); Alkaline Phosphatase 67 U/L (45-117); Anion Gap 5 (5-15); BUN/Creat Ratio 22.5 RATIO (10-20); Calcium,Total 8.5 mg/dL (8.5-10.1); Chloride 108 mmol/L (98-107); EST Glomerular Filtration Rate 38 mL/min (>60); Est Glom Filt Rate - Afr Amer 46 mL/min (>60); Globulin 4.6 g/dL (2.2-4.2); Potassium 4.9 mmol/L (3.5-5.1); Protein, Total 7.9 g/dL (6.4-8.2); Sodium Level 141 mmol/L (136-145); Thyroid Stim Hormone (TSH) 3.02 uIU/mL (0.358-3.74)
== END | disposition home or self-care (01) ==
PROVIDERS: PCP Family Medicine; Referring Provider Physician Assistant Medical; Visit Provider Physician Assistant Medical
DX: I48.0 Paroxysmal atrial fibrillation (principal); I48.19 Other persistent atrial fibrillation; I25.5 Ischemic cardiomyopathy; R04.2 Hemoptysis; Z95.810 Presence of automatic (implantable) cardiac defibrillator
CPT/HCPCS: 36415; 71046; 80053; 84443; 85025

== ENCOUNTER 2023-04-21 15:10 | Emergency (ER) | payer MEDICARE, SELFPAY ==
[2023-04-21 15:10] VITALS: BP 97/64; PULSE 82; RESP 16; TEMP 36; O2SAT 93; BMI 26.6
--- NOTE | 2023-04-21 16:00 | RAD_ITS ---
EXAM: XR LEFT KNEE COMPLETE, 4 OR MORE VIEWS CLINICAL INDICATION: Injury/Pain TECHNIQUE: Four or more views of the left knee. COMPARISON: No relevant prior studies available. FINDINGS: BONES/JOINTS: No acute fracture or subluxation. Large knee joint effusion. Narrowing of the medial knee joint compartment associated with osteophytosis. Articular cartilage calcification is present. SOFT TISSUES: Normal. No soft tissue swelling or gas. No radiopaque foreign body. RAD/Knee 4 or More Views IMPRESSION: 1. Moderate osteoarthritis. 2. Large knee joint effusion. 3. Chondrocalcinosis. Electronically Signed: Shorty Centeno MD at 16:24 EDT ,
--- NOTE | 2023-04-21 16:05 | EDS_ITS ---
HPI History of Present Illness Chief Complaint: Lower Extremity Injury Informant: patient Narrative Narrative: Patient is a 8-year-old male on chronic Eliquis therapy for atrial fibrillation as well as ischemic cardiomyopathy status post ICD placement presenting with atraumatic left knee pain and swelling. He states been going on for couple weeks. Denies any initial event that could have caused it such as abnormal twisting. States it is worse when he tries to flex and extend his knee. Denies any associated numbness or tingling. Denies no overlying redness. Denies any left calf or pedal edema. Denies any fever or chills. No systemic symptoms reported. Does not have an orthopedist. No other complaints or concerns at this time [facility] Medical History Abnormal electrocardiogram [ECG] [EKG] Atherosclerotic heart disease of [place] coronary artery without angina pectoris Cardiology follow-up encounter CKD (chronic kidney disease) stage 3, GFR 30-59 ml/min Encounter for long-term current use of high risk medication High cholesterol History of echocardiogram History of stress test Hyperlipidemia Hypertension Injury of head and neck Ischemic cardiomyopathy Non-sustained ventricular tachycardia Palpitations Paroxysmal atrial fibrillation Persistent atrial fibrillation Secondary pulmonary arterial hypertension Transient ischemic attack Wears glasses Home Medications cholecalciferol (vitamin D3) 25 mcg (1,000 unit) capsule 25 mcg PO DAILY VITAMIN SUPPLEMENT 12/19/19 [History Last Taken Unknown] apixaban 2.5 mg tablet (Eliquis) 2.5 mg PO BID BLOOD THINNER 05/07/21 [History Last Taken Unknown] carvedilol 6.25 mg tablet 6.25 mg PO BID HEART #180 tabs 09/14/21 [Rx Last Taken Unknown] hydrocodone-acetaminophen 5-325mg 5mg-325mg 1 tab PO Q6H PRN PRN Pain 3 days #12 TABLETS 06/09/22 [Rx Last Taken Unknown] Allergy/AdvReac Type Severity Reaction Status Date / Time No Known Allergies Allergy Verified 02/17/23 08:43 Family History Father CAD (coronary artery disease), Onset Age: 55 Mother , unknown cause No problems noted. Brother CAD (coronary artery disease) History of coronary artery bypass graft x 3 Brother Cancer Brother Unknown whether patient has any health problems Brother , unknown causes No problems noted. 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) History of implantable cardiac defibrillator (ICD) History of umbilical hernia repair Hx of bilateral cataract extraction Presence of implantable cardioverter-defibrillator (ICD) (05/25/11) Status post laparoscopic colectomy Social History Smoking Status: Never smoker alcohol intake: never caffeine: Yes Type: coffee Number of servings: 2 ROS ROS ED Constitutional Constitutional ED: Denies chills or fever(s) Cardiovascular Cardiovascular: Denies chest pain or palpitations Respiratory/Chest Respiratory/Chest: Denies cough or dyspnea Gastrointestinal Gastrointestinal: Denies nausea Musculoskeletal Musculoskeletal: Reports other Details: Left knee pain Integumentary Denies rash Neurologic Neurologic: Denies paresthesias or weakness Hematologic/Lymphatic Hematologic/Lymphatic: Reports easy bleeding and easy bruising EXAM Physical Exam Const Vital Signs: 04/21/23 15:10 Temperature 96.8 F L Temperature Source Temporal Pulse Rate 82 Respiratory Rate 16 Blood Pressure 97/64 Blood Pressure Mean 75 Pulse Ox 93 Oxygen Delivery Method Room Air Positive well nourished and well developed General Appearance ED: well developed and NAD HEENT Reports moist mucous membranes Neck full ROM and supple Neck Narrative: No JVD Chest Wall inspection of chest normal Resp normal respiratory effort and clear to auscultation bilaterally Auscultation: Negative for diminished lung sounds Cardio regular rate, regular rhythm and no murmurs Extremity full ROM Extremity Narrative: Left lower extremity-no deformity of the extremity. Normal hip movement and rotation. Effusion present at the left knee. No pinpoint area of tenderness. No overlying erythema or associated warmth. Mild pain with flexion and extension of the knee however he does not have short arc range of motion pain. No palpable cords. No pedal edema present. Right lower extremity?normal General Extremety ED: Negative for edema General Extremity: Negative for edema Neuro oriented x3, moves all extremities and no sensory deficits noted Sensorium / Orientation: alert Motor Exam: Negative for general weakness Psych mental status grossly normal Skin no wounds Rashes: no rashes MDM MDM MDM Narrative Medical decision making narrative: Patient is evaluated for left atraumatic knee pain and swelling. Physical exam is consistent with left knee effusion. Low suspicion for septic joint or acute gout. Does not have a history for trauma. Will obtain an x-ray. Suspect he has an effusion secondary to osteoarthritis. X-ray my interpretation shows significant osteoarthritis but do not appreciate any acute fracture. Discussed that as patient is anticoagulated I do not think he requires an emergent arthrocentesis as I do not suspect gout/septic joint as a cause of his effusion. Will refer to orthopedics and start with compressive therapy with an Wolf wrap. Instructed take Tylenol for pain. Patient does not have any distal edema and I do not suspect fluid overload or DVT. In addition he is anticoagulated so lower suspicion for DVT. Radiography Diagnostic Testing: Clinical Impression(s) from Imaging Studies Knee X-Ray 04/21/23 16:00 IMPRESSION: 1. Moderate osteoarthritis. 2. Large knee joint effusion. 3. Chondrocalcinosis. Electronically Signed: Shorty Centeno MD at 16:24 EDT , Discharge Plan Triage Chief Complaint: Lower Extremity Injury ED Provider: Vianca Haro Dx/Rx/DC Orders Clinical Impression: Effusion, left knee, Osteoarthritis of left knee Instructions: ED Knee Effusion Prescriptions: No Action cholecalciferol (vitamin D3) 25 mcg (1,000 unit) capsule 25 mcg PO DAILY Eliquis 2.5 mg tablet 2.5 mg PO BID Patient Comments: LAST DOSE 11/07/21 hydrocodone-acetaminophen [hydrocodone-acetaminophen] 5-325 mg tablet 1 tab PO Q6H PRN PRN (Reason: Pain) 3 Days Qty: 12 0RF carvedilol 6.25 mg tablet 6.25 mg PO BID Qty: 180 3RF Primary Care Provider: Aroldo Julio Referrals: Aroldo Julio MD [Primary Care Provider] - Jose Beckman MD [Med Staff - Active Staff] - 1-2 Weeks Activity Restrictions/Additional Instructions: Please wear the Wolf wrap to help with the swelling of your knee. Take Tylenol for pain. You may use heat to the knee as well. Your x-ray does show fluid on the knee as well as moderate osteoarthritis of the knee. Please follow-up with orthopedics. Disposition Disposition: Home, Self Care Discharge Date/Time: 04/21/23 17:14
== END 2023-04-21 17:14 | disposition home or self-care (01) ==
PROVIDERS: Emergency Provider Emergency Medicine; PCP Family Medicine; Visit Provider Emergency Medicine
DX: M25.462 Effusion, left knee (principal); I48.91 Unspecified atrial fibrillation; N18.30 Chronic kidney disease, stage 3 unspecified; M17.12 Unilateral primary osteoarthritis, left knee; I25.10 Atherosclerotic heart disease of native coronary artery without angina pectoris; Z79.01 Long term (current) use of anticoagulants; Z95.810 Presence of automatic (implantable) cardiac defibrillator; Z86.73 Personal history of transient ischemic attack (TIA), and cerebral infarction without residual deficits
CPT/HCPCS: 73564; 99282

== ENCOUNTER → 2023-09-27 | Outpatient (CLI) | payer MEDICARE, SELFPAY ==
--- OUTSIDE RECORDS SUMMARY | 2023-09-27 06:36 | XMS RPT_ITS | CCD ---
Author Name Unknown Address [address] [place] [address] Organization [facility] Care Team Providers Care Hand Button Splitter Name Role Phone JENNI Nino, Sabina David Unavailable Unavailable Renae Guzman Unavailable Unavailable Renae Guzman Unavailable Unavailable MD Noman, Ten De La Cruz Unavailable JENNI Nino, Sabina David Unavailable Unavailable JENNI Nino, Sabina David Unavailable Unavailable Yuliana Mejia Unavailable JENNI Nino, Sabina David Unavailable Unavailable JENNI Nino, Sabina David Unavailable Unavailable JENNI Nino, Sabina David Unavailable Unavailable JENNI Nino, Sabina David Unavailable Unavailable Libertad Julio MD Primary Care Provider Libertad Julio MD Primary Care Provider Libertad Julio MD Primary Care Provider LIBERTAD JULIO Attending Unavailab LIBERTAD Soni Referring Unavailab LIBERTAD Soni Primary Care Unavailab LIBERTAD Soni Referring Unavailab LIBERTAD Soni Primary Care Unavailab LIBERTAD Soni Attending Unavailab LIBERTAD Soni Primary Care Unavailab LIBERTAD Soni Attending Unavailab LIBERTAD Soni Referring Unavailab LIBERTAD Soni Primary Care Unavailab LIBERTAD Soni Referring Unavailab LIBERTAD Soni Primary Care Unavailab BRYAN Braga Attending Unavailable LIBERTAD JULIO Primary Care Unavailab LIBERTAD Soni Referring Unavailab LIBERTAD Soni Primary Care Unavailab le PODBRYAN CANCINO Referring Unavailable LIBERTAD JULIO Primary Care Unavailab le PODLOGAR, BRYAN Referring Unavailable LIBERTAD JULIO Primary Care Unavailab le Medications Completed/Discontinued Medications Medication Drug Class(es) Dates Sig (Normalized) Sig (Original) acetaminophen 325 mg / oxyCODONE hydrochloride 5 mg oral tablet (20 sources) Opioid Agonist Start: 12-16-2010 End: 08-04-2011 PERCOCET 5-325 MG TABS As needed OXYCODONE-ACETAMINO PHEN [id number] Lynette Bose Problems Active Problems Problem Classification Problem Date Documented Da te Episodic/Chronic Cardiac dysrhythmias (20 sources) Paroxysmal atrial fibrillation; Translations: [Atrial flutter] Onset: 06-23-2015 06-23-2015 Chronic Chronic kidney disease (13 sources) Chronic kidney disease stage 3A ; Translations: [Stage 3a chronic kidney disease] Onset: 04-11-2022 07-13-2021 Chronic Chronic kidney disease (2 sources) Chronic kidney disease; Translations: [Stage 3b chronic kidney disease (HCC)] Onset: 07-13-2021 Conduction disorders (20 sources) Presence of automatic (implantable) cardiac defibrillator; Translations: [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] Onset: 08-14-2010 10-25-2012 Chronic Coronary atherosclerosis and other heart disease (20 sources) Generalized ischemic myocardial dysfunction; Translations: [Coronary arteriosclerosis] Onset: 08-14-2010 Resolved: 03-25-2016 03-25-2016 Chronic Disorders of lipid metabolism (20 sources) Hyperlipidemia; Translations: [Hyperlipidemia, unspecified] Onset: 11-22-2010 11-22-2010 Chronic Diverticulosis and diverticulitis (8 sources) Diverticulosis of colon; Translations: [Diverticulosis of large intestine without perforation or abscess without bleeding] Onset: 10-25-2010 10-25-2010 Chronic Essential hypertension (10 sources) Hypertensive disorder; Translations: [Essential (primary) hypertension] Onset: 10-31-2016 10-31-2016 Chronic Hypertension with complications and secondary hypertension (8 sources) Hypertensive renal disease; Translations: [Hypertensive chronic kidney disease with stage 1 through stage 4 chronic kidney disease, or unspecified chronic kidney disease] Onset: 07-13-2021 07-13-2021 Chronic Other connective tissue disease (1 source) Pain in bilateral legs; Translations: [Pain in right leg] Episodic Other lower respiratory disease (2 sources) Hemoptysis; Translations: [Hemoptysis] Episodic Jazmine-; endo-; and myocarditis; cardiomyopathy (except that caused by tuberculosis or sexually transmitted disease) (11 sources) Dilated cardiomyopathy; Translations: [Dilated cardiomyopathy] Onset: 11-22-2010 11-22-2010 Chronic Pulmonary heart disease (11 sources) Other secondary pulmonary hypertension; Translations: [Other secondary pulmonary hypertension] Onset: 03-25-2016 03-25-2016 Chronic Transient cerebral ischemia (9 sources) Transient cerebral ischemia; Translations: [Transient cerebral ischemic attack, unspecified] Onset: 08-14-2017 03-19-2018 Chronic Unclassified (5 sources) Long-term drug therapy; Translations: [Other correction (current) drug therapy] Onset: 03-25-2016 03-25-2016 Past or Other Problems Problem Classification Problem Date Documented Date Episodic/Chronic Abdominal hernia (20 sources) Spigelian hernia; Translations: [Ventral hernia without obstruction or gangrene] Onset: 9 07-27-2009 Episodic Cardiac dysrhythmias (11 sources) Palpitations; Translations: [Palpitations] Onset: 3 05-17-2013 Episodic Coronary atherosclerosis and other heart disease (11 sources) Presence of aortocoronary bypass graft; Translations: [Presence of aortocoronary bypass graft] Onset: 1 12-16-2010 Episodic Hemorrhoids (8 sources) Internal hemorrhoids; Translations: [Other hemorrhoids] Onset: 1 10-25-2010 Episodic Other aftercare (6 sources) Other correction (current) drug therapy; Translations: [Other correction (current) drug therapy] Onset: 6 03-25-2016 Episodic Other lower respiratory disease (2 sources) Hemoptysis; Translations: [Hemoptysis] Onset: 2 Episodic Other screening for suspected conditions (not mental disorders or infectious disease) (20 sources) Abnormal result of cardiovascular function study, unspecified; Translations: [Electrocardiogram abnormal] Onset: 1 Resolved: 6 03-25-2016 Episodic Other screening for suspected conditions (not mental disorders or infectious disease) (5 sources) Electrocardiogram abnormal; Translations: [Abnormal electrocardiogram [ECG] [EKG]] Onset: 1 11-22-2010 Episodic Residual codes; unclassified (20 sources) Family history of ischemic heart disease and other diseases of the circulatory system; Translations: [Family history of ischemic heart disease and other diseases of the circulatory system] Resolved: 6 01-21-2014 Episodic Residual codes; unclassified (9 sources) Statin declined; Translations: [Procedure and treatment not carried out because of patient's decision for unspecified reasons] Onset: 0 09-26-2019 Episodic Results Test Name Value Interpretation Reference Range Facil ity Vital Signs Date Time Vital Sign Value Performing Clinician Faci lity 09-12-2022 15:23-0500 Body weight 80.74 kg Libertad Julio MD Work Phone: [facility] 09-12-2022 15:23-0500 Diastolic blood pressure 66 mm[Hg] Libertad Julio MD Work Phone: [facility] 09-12-2022 15:23-0500 Heart rate 61 /min Libertad Julio MD Work Phone: [facility] 09-12-2022 15:23-0500 Respiratory rate 16 /min Libertad Julio MD Work Phone: [facility] 09-12-2022 15:23-0500 SaO2% (BldA) [Mass fraction] 96 % Libertad Julio MD Work Phone: [facility] 09-12-2022 15:23-0500 Systolic blood pressure 114 mm[Hg] Libertad Julio MD Work Phone: [facility] 04-11-2022 08:26-0400 Body weight 81.28 kg Libertad Julio MD Work Phone: [facility] 04-11-2022 08:26-0400 Diastolic blood pressure 62 mm[Hg] Libertad Julio MD Work Phone: [facility] 04-11-2022 08:26-0400 Heart rate 55 /min Libertad Julio MD Work Phone: [facility] 04-11-2022 08:26-0400 Respiratory rate 16 /min Libertad Julio MD Work Phone: [facility] 04-11-2022 08:26-0400 SaO2% (BldA) [Mass fraction] 97 % Libertad Julio MD Work Phone: [facility] 04-11-2022 08:26-0400 Systolic blood pressure 106 mm[Hg] Libertad Julio MD Work Phone: [facility] 01-18-2022 08:21-0400 Body temperature 96.8 [degF] Bryan Podlogar WINERY CELLAR HAND.ELECTRIC REFRIGERATOR SERVICER Work Phone: [facility] 01-18-2022 08:21-0400 Body weight 78.83 kg Bryan Podlogar [employer] CE[employer]AR HAND.ELECTRIC REFRIGERATOR SERVICER Work Phone: [facility] 01-18-2022 08:21-0400 Diastolic blood pressure 60 mm[Hg] Bryan Podlogar WIN[employer] CELLAR HAND.ELECTRIC REFRIGERATOR SERVICER Work Phone: [facility] 01-18-2022 08:21-0400 Heart rate 67 /min Bryan Podlogar WIN[employer] CELLAR HAND.ELECTRIC REFRIGERATOR SERVICER Work Phone: [facility] 01-18-2022 08:21-0400 Respiratory rate 20 /min Bryan Podlogar WINERY CELLAR HAND.ELECTRIC REFRIGERATOR SERVICER Work Phone: [facility] 01-18-2022 08:21-0400 SaO2% (BldA) [Mass fraction] 97 % Bryan Podlogar WINERY CELLAR HAND.ELECTRIC REFRIGERATOR SERVICER Work Phone: [facility] 01-18-2022 08:21-0400 Systolic blood pressure 92 mm[Hg] Bryan Podlogar WINERY CELLAR HAND.ELECTRIC REFRIGERATOR SERVICER Work Phone: [facility] 03-24-2017 13:24-0400 BMI (Body Mass Index) 22.77 kg/m2 [facility]ae [facility] Work Phone: 03-24-2017 13:24-0400 BP Diastolic 62 mm[Hg] [facility] Work Phone: 03-24-2017 13:24-0400 BP Systolic 110 mm[Hg] [facility] Work Phone: 03-24-2017 13:24-0400 Height 185.42 cm [facility]ae [facility] Work Phone: 03-24-2017 13:24-0400 Pulse (Heart Rate) 60 /min [facility] Work Phone: 03-24-2017 13:24-0400 Respiratory Rate 18 /min [facility]ae [facility] Work Phone: 03-24-2017 13:24-0400 Weight 78.29 kg Renae [facility] Work Phone: 10-28-2016 10:23-0400 BMI (Body Mass Index) 21.9 kg/m2 JENNI [facility] Work Phone: 10-28-2016 10:23-0400 Body weight 75.3 kg JENNI [facility] Work Phone: 10-28-2016 10:23-0400 BP Diastolic 60 mm[Hg] JENNI [facility] Work Phone: 10-28-2016 10:23-0400 BP Systolic 112 mm[Hg] [facility] Work Phone: 10-28-2016 10:23-0400 Height 185.42 cm JENNI [facility] Work Phone: 10-28-2016 10:23-0400 Pulse (Heart Rate) 74 /min JENNI [facility] Work Phone: 10-28-2016 10:23-0400 Respiratory Rate 18 /min JENNI [facility] Work Phone: 10-28-2016 10:23-0400 Weight 75.3 kg JENNI [facility] Work Phone: 09-22-2016 09:12-0500 BSA (Body Surface Area) 2.02 m2 Sabina Nino RN [facility] Work Phone: 06-23-2015 14:46-0500 Heart rate 59 /min [facility] Work Phone: 05-17-2013 08:31-0400 Heart rate 410 ms Sabina Nino RN [facility] Work Phone: Encounters Encounter Date Encounter Type Care Provider Facility Start: 09-12-2022 End: 09-12-2022 ambulatory LIBERTAD JULIO Facility:[facility] Start: 09-12-2022 End: 09-12-2022 Patient encounter procedure Libertad Julio MD Work Phone: [facility] Procedures Date Procedure Procedure Detail Performing Clinician Start: 02-02-2022 Ct thorax w/o contra st material Bryan Podlogar WINERY CELLAR HAND.ELECTRIC REFRIGERATOR SERVICER Work Phone: Start: 01-18-2022 Urnls dip stick/tabl et rgnt auto w/o microscopy Bryan Podlogar WIN[employer] CELLAR HAND.ELECTRIC REFRIGERATOR SERVICER Work Phone: Start: 07-13-2017 End: 07-13-2017 Prgrmg eval implantable in prsn dual lead abran Tineo MD Start: 04-12-2017 End: 04-12-2017 Prgrmg eval implantable in prsn dual lead abran Tineo MD Start: 04-12-2017 End: 04-12-2017 Icd device progr eval, dual Ten Peoples i, MD Start: 03-24-2017 End: 03-24-2017 BONBON CREAM WARMER Wisam Waters [employer]GRAMS DIRECTOR Work Phone: Start: 03-24-2017 End: 03-24-2017 Follow Up Appt 6 months Wisam Waters [employer]GR[employer] DIRECTOR Work Phone: Start: 03-24-2017 End: 03-24-2017 BONBON CREAM WARMER Wisam Waters [employer] PROGRAMS DIRECTOR Work Phone: Start: 03-24-2017 End: 03-24-2017 Follow Up Appt 6 months Wisam Radford Evelin PANTOJA Work Phone: Start: 01-04-2017 End: 03-24-2017 Follow Up Appt 3 months Joann Laurent Start: 01-04-2017 End: 03-24-2017 Pacer Clinic Ten Tineo MD Start: 01-04-2017 End: 01-05-2017 Prgrmg eval implantable in prsn dual lead dfb Ten Tineo MD Start: 01-04-2017 End: 03-24-2017 Follow Up Appt 3 months Joann Laurent Start: 01-04-2017 End: 01-05-2017 Icd device progr eval, dual Ten Peoples i, MD Start: 01-04-2017 End: 03-24-2017 Pacer Clinic Ten Tineo MD Start: 10-28-2016 End: 10-28-2016 Follow Up Appt 6 months Joann Laurent Start: 10-28-2016 End: 10-28-2016 LEONARDO Tineo MD Start: 10-28-2016 End: 10-28-2016 Documentation of current medications Sabina Nino RN Start: 10-28-2016 End: 10-28-2016 Follow Up Appt 6 months Joann Laurent Start: 10-28-2016 End: 10-28-2016 LEONARDO Tineo MD Start: 09-22-2016 End: 02-16-2017 *BMP Ten Tineo MD Start: 09-22-2016 End: 02-16-2017 *CBC with Differential Ten Tineo MD Start: 09-22-2016 End: 03-24-2017 Follow Up Appt 3 months Joann Laurent Start: 09-22-2016 End: 09-22-2016 Follow Up Appt 6 months Joann Laurent Start: 09-22-2016 End: 02-16-2017 Magnesium [Mass/volume] in Serum or Plasma Ten Tineo MD Start: 09-22-2016 End: 09-22-2016 MMM Ten Tineo MD Start: 09-22-2016 End: 03-24-2017 Pacer Clinic Ten Tineo MD Start: 09-22-2016 End: 09-22-2016 Prgrmg eval implantable in prsn dual lead dfb Ten Tineo MD Start: 09-22-2016 End: 02-16-2017 *BMP Ten Tineo MD Start: 09-22-2016 End: 02-16-2017 *CBC with Differential Ten Tineo MD Start: 09-22-2016 End: 03-24-2017 Follow Up Appt 3 months Joann Laurent Start: 09-22-2016 End: 09-22-2016 Follow Up Appt 6 months Joann Laurent Start: 09-22-2016 End: 09-22-2016 Icd device progr eval, dual Ten Peoples i, MD Start: 09-22-2016 End: 02-16-2017 Magnesium Ten Tineo MD Start: 09-22-2016 End: 09-22-2016 MMJoann Tineo MD Start: 09-22-2016 End: 03-24-2017 Pacer Clinic Ten Tineo MD Start: 07-04-2016 End: 03-24-2017 Follow Up Appt 3 months Michell conn PA-C Work Phone: Start: 07-04-2016 End: 03-24-2017 Pacer Clinic Michell Rodriguez PA-C Work Phone: Start: 07-04-2016 End: 07-04-2016 Prgrmg eval implantable in prsn dual lead dfb Michell Rodriguez PA-C Work Phone: Start: 07-04-2016 End: 03-24-2017 Follow Up Appt 3 months Michell conn PA-C Work Phone: Start: 07-04-2016 End: 07-04-2016 Icd device progr eval, dual Michell Watson PA-C Work Phone: Start: 07-04-2016 End: 03-24-2017 Pacer Clinic Michell Rodriguez PA-C Work Phone: Start: 03-25-2016 End: 03-24-2017 Follow Up Appt 3 months Joann Laurent Start: 03-25-2016 End: 03-25-2016 Follow Up Appt 6 months Joann Laurent Start: 03-25-2016 End: 03-25-2016 MM Ten Tineo MD Start: 03-25-2016 End: 03-24-2017 Pacer Clinic Ten Tineo MD Start: 03-25-2016 End: 03-25-2016 Prgrmg eval implantable in prsn dual lead dfb Ten Tineo MD Start: 03-25-2016 End: 03-24-2017 Follow Up Appt 3 months Joann Laurent Start: 03-25-2016 End: 03-25-2016 Follow Up Appt 6 months Joann Laurent Start: 03-25-2016 End: 03-25-2016 Icd device progr eval, dual Ten Peoples i, MD Start: 03-25-2016 End: 03-25-2016 MMM Ten Tineo MD Start: 03-25-2016 End: 03-24-2017 Pacer Clinic Ten Tineo MD Start: 12-09-2015 End: 03-24-2017 Follow Up Appt 3 months Joann Laurent Start: 12-09-2015 End: 03-24-2017 Pacer Clinic Ten Tineo MD Start: 12-09-2015 End: 12-09-2015 Prgrmg eval implantable in prsn dual lead dfb Ten Tineo MD Start: 12-09-2015 End: 03-24-2017 Follow Up Appt 3 months Joann Laurent Start: 12-09-2015 End: 12-09-2015 Icd device progr eval, dual Ten Peoples i, MD Start: 12-09-2015 End: 03-24-2017 Pacer Clinic Ten Tineo MD Start: 09-07-2015 End: 09-07-2015 BONBON CREAM WARMER Michell Rodriguez PA-C Work Phone: Start: 09-07-2015 End: 03-24-2017 Follow Up Appt 3 months Michell conn PA-C Work Phone: Start: 09-07-2015 End: 09-07-2015 Follow Up Appt 6 months Michell conn PA-C Work Phone: Start: 09-07-2015 End: 03-24-2017 Pacer Clinic Michell Rodriguez PA-C Work Phone: Start: 09-07-2015 End: 09-07-2015 Prgrmg eval implantable in prsn dual lead dfb Michell Rodriguez PA-C Work Phone: Start: 09-07-2015 End: 09-07-2015 BONBON CREAM WARMER Michell Rodriguez PA-C Work Phone: Start: 09-07-2015 End: 03-24-2017 Follow Up Appt 3 months Michell conn PA-C Work Phone: Start: 09-07-2015 End: 09-07-2015 Follow Up Appt 6 months Michell conn PA-C Work Phone: Start: 09-07-2015 End: 03-24-2017 Icd device progr eval, dual Michell Watson PA-C Work Phone: Start: 09-07-2015 End: 03-24-2017 Pacer Clinic Michell Rodriguez PA-C Work Phone: Start: 07-06-2015 End: 08-12-2015 *Hepatic Function Panel Michell conn PA-C Work Phone: Start: 07-06-2015 End: 08-12-2015 Lipid 1996 panel - Serum or Plasma Michell Rodriguez PA-C Work Phone: Start: 07-06-2015 End: 08-12-2015 *Hepatic Function Panel Michell conn PA-C Work Phone: Start: 07-06-2015 End: 08-12-2015 Lipid panel [AGGREGATE] Michell conn PA-C Work Phone: Start: 06-23-2015 End: 06-23-2015 Follow Up Appt Other Michell ahuja PA-C Work Phone: Start: 06-23-2015 End: 06-23-2015 Follow Up Appt Other Michell ahuja PA-C Work Phone: Start: 06-15-2015 End: 06-23-2015 Follow Up Appt 3 months Michell conn PA-C Work Phone: Start: 06-15-2015 End: 06-23-2015 Pacer Clinic Michell Rodriguez PA-C Work Phone: Start: 06-15-2015 End: 06-15-2015 Prgrmg eval implantable in prsn dual lead dfb Michell Rodriguez PA-C Work Phone: Start: 06-15-2015 End: 06-23-2015 Follow Up Appt 3 months Michell conn PA-C Work Phone: Start: 06-15-2015 End: 06-15-2015 Icd device progr eval, dual Michell Watosn PA-C Work Phone: Start: 06-15-2015 End: 06-23-2015 Pacer Clinic Michell Rodriguez PA-C Work Phone: Start: 03-03-2015 End: 03-04-2015 Documentation of current medications Ten Tineo MD Start: 03-03-2015 End: 06-23-2015 Follow Up Appt 3 months Joann Laurent Start: 03-03-2015 End: 03-03-2015 Follow Up Appt 6 months Joann Laurent Start: 03-03-2015 End: 03-03-2015 MM Ten Tineo MD Start: 03-03-2015 End: 06-23-2015 Pacer Clinic Ten Tineo MD Start: 03-03-2015 End: 03-03-2015 Prgrmg eval implantable in prsn dual lead dfb Ten Tineo MD Start: 03-03-2015 End: 03-04-2015 Documentation of current medications Ten Tineo MD Start: 03-03-2015 End: 06-23-2015 Follow Up Appt 3 months Joann Laurent Start: 03-03-2015 End: 03-03-2015 Follow Up Appt 6 months Joann Laurent Start: 03-03-2015 End: 03-03-2015 Icd device progr eval, dual Ten Peoples i, MD Start: 03-03-2015 End: 03-03-2015 MMM Ten Tineo MD Start: 03-03-2015 End: 06-23-2015 Pacer Clinic Ten Tineo MD Start: 11-13-2014 End: 06-23-2015 Follow Up Appt 3 months Michell conn PA-C Work Phone: Start: 11-13-2014 End: 06-23-2015 Pacer Clinic Michell Rodriguez PA-C Work Phone: Start: 11-13-2014 End: 11-13-2014 Prgrmg eval implantable in prsn dual lead dfb Michell Rodriguez PA-C Work Phone: Start: 11-13-2014 End: 06-23-2015 Follow Up Appt 3 months Michell conn PA-C Work Phone: Start: 11-13-2014 End: 06-23-2015 Icd device progr eval, dual Michell Watson PA-C Work Phone: Start: 11-13-2014 End: 06-23-2015 Pacer Clinic Michell Rodriguez PA-C Work Phone: Start: 10-13-2014 End: 10-16-2014 *Hepatic Function Panel Joann Laurent Start: 10-13-2014 End: 10-16-2014 Lipid 1996 panel - Serum or Plasma Ten Tineo MD Start: 10-13-2014 End: 10-16-2014 *Hepatic Function Panel Joann Laurent Start: 10-13-2014 End: 10-16-2014 Lipid panel [AGGREGATE] Joann Laurent Start: 08-15-2014 End: 08-15-2014 STEFFI Rodriguez PA-C Work Phone: Start: 08-15-2014 End: 08-15-2014 Follow Up Appt 3 months Joann Laurent Start: 08-15-2014 End: 08-15-2014 Follow Up Appt 6 months Michell conn PA-C Work Phone: Start: 08-15-2014 End: 08-15-2014 Pacer Clinic Ten Tineo MD Start: 08-15-2014 End: 08-15-2014 Prgrmg eval implantable in prsn dual lead dfb Ten Tineo MD Start: 08-15-2014 End: 08-15-2014 STEFFI Rodriguez PA-C Work Phone: Start: 08-15-2014 End: 08-15-2014 Follow Up Appt 3 months Joann Laurent Start: 08-15-2014 End: 08-15-2014 Follow Up Appt 6 months Michell conn PA-C Work Phone: Start: 08-15-2014 End: 08-15-2014 Icd device progr eval, dual Ten Peoples i, MD Start: 08-15-2014 End: 08-15-2014 Pacer Clinic Ten Tieno MD Start: 05-01-2014 End: 07-08-2014 Follow Up Appt 3 months Michell conn PA-C Work Phone: Start: 05-01-2014 End: 07-08-2014 Pacer Clinic Michell Rodriguez PA-C Work Phone: Start: 05-01-2014 End: 05-01-2014 Prgrmg eval implantable in prsn dual lead dfb Michell Rodriguez PA-C Work Phone: Start: 05-01-2014 End: 07-08-2014 Follow Up Appt 3 months Michell conn PA-C Work Phone: Start: 05-01-2014 End: 05-01-2014 Icd device progr eval, dual Michell Watson PA-C Work Phone: Start: 05-01-2014 End: 07-08-2014 Pacer Clinic Michell Rodriguez PA-C Work Phone: Start: 04-14-2014 End: 07-08-2014 *Hepatic Function Panel Joann Laurent Start: 04-14-2014 End: 07-08-2014 Lipid 1996 panel - Serum or Plasma Ten Tineo MD Start: 04-14-2014 End: 07-08-2014 *Hepatic Function Panel Joann Laurent Start: 04-14-2014 End: 07-08-2014 Lipid panel [AGGREGATE] Joann Laurent Start: 01-29-2014 End: 07-08-2014 Follow Up Appt 3 months Joann Laurent Start: 01-29-2014 End: 07-08-2014 Pacer Clinic Ten Tineo MD Start: 01-29-2014 End: 01-29-2014 Prgrmg eval implantable in prsn dual lead dfb Ten Tineo MD Start: 01-29-2014 End: 07-08-2014 Follow Up Appt 3 months Joann Laurent Start: 01-29-2014 End: 07-08-2014 Icd device progr eval, dual Ten Peoples i, MD Start: 01-29-2014 End: 07-08-2014 Pacer Clinic Ten Tineo MD Start: 01-21-2014 End: 01-21-2014 Follow Up Appt 6 months Joann Laurent Start: 01-21-2014 End: 01-21-2014 LEONARDO Tineo MD Start: 01-21-2014 End: 01-21-2014 Follow Up Appt 6 months Joann Laurent Start: 01-21-2014 End: 01-21-2014 LEONARDO Tineo MD Start: 10-28-2013 End: 07-08-2014 Follow Up Appt 3 months Michell conn PA-C Work Phone: Start: 10-28-2013 End: 07-08-2014 Pacer Clinic Michell Rodriguez PA-C Work Phone: Start: 10-28-2013 End: 10-28-2013 Prgrmg eval implantable in prsn dual lead dfb Michell Rodriguez PA-C Work Phone: Start: 10-28-2013 End: 07-08-2014 Follow Up Appt 3 months Michell conn PA-C Work Phone: Start: 10-28-2013 End: 10-28-2013 Icd device progr eval, dual Michell Watson PA-C Work Phone: Start: 10-28-2013 End: 07-08-2014 Pacer Clinic Michell Rodriguez PA-C Work Phone: Start: 07-30-2013 End: 07-08-2014 Follow Up Appt 3 months Randall Sin MD Start: 07-30-2013 End: 07-08-2014 Pacer Clinic Randall Sin MD Start: 07-30-2013 End: 07-30-2013 Prgrmg eval implantable in prsn dual lead dfb Randall Sin MD Start: 07-30-2013 End: 07-08-2014 Follow Up Appt 3 months Randall Sin MD Start: 07-30-2013 End: 07-30-2013 Icd device progr eval, dual Randall samaniego MD Start: 07-30-2013 End: 07-08-2014 Pacer Clinic Randall Sin MD Start: 05-17-2013 End: 07-08-2014 *BMP Michell Rodriguez PA-C Work Phone: Start: 05-17-2013 End: 07-08-2014 *CBC with Differential Michell forrester PA-C Work Phone: Start: 05-17-2013 End: 07-08-2014 24 hour holter monitor Michell forrester PA-C Work Phone: Start: 05-17-2013 End: 05-17-2013 BONBON CREAM WARMER Michell Rodriguez PA-C Work Phone: Start: 05-17-2013 End: 07-08-2014 Device Interrogation Michell ahuja PA-C Work Phone: Start: 05-17-2013 End: 07-08-2014 Follow Up Appt 3 months Joann Laurent Start: 05-17-2013 End: 05-17-2013 Follow Up Appt 6 months Michell conn PA-C Work Phone: Start: 05-17-2013 End: 07-08-2014 Pac[facility] Clinic Ten Tineo MD Start: 05-17-2013 End: 05-17-2013 Prgrmg eval implantable in prsn dual lead dfb Ten Tineo MD Start: 05-17-2013 End: 07-08-2014 Thyrotropin [Units/volume] in Serum or Plasma Michell Rodriguez PA-C Work Phone: Start: 05-17-2013 End: 07-08-2014 *BMP Michell Rodriguez PA-C Work Phone: Start: 05-17-2013 End: 07-08-2014 *CBC with Differential Michell forrester PA-C Work Phone: Start: 05-17-2013 End: 07-08-2014 24 hour holter monitor Michell forrester PA-C Work Phone: Start: 05-17-2013 End: 05-17-2013 BONBON CREAM WARMER Michell Rodriguez PA-C Work Phone: Start: 05-17-2013 End: 07-08-2014 Device Interrogation Michell ahuja PA-C Work Phone: Start: 05-17-2013 End: 07-08-2014 Follow Up Appt 3 months Joann Laurent Start: 05-17-2013 End: 05-17-2013 Follow Up Appt 6 months Michell conn PA-C Work Phone: Start: 05-17-2013 End: 05-17-2013 Icd device progr eval, dual Ten Peoples i, MD Start: 05-17-2013 End: 07-08-2014 Pacer Clinic Ten Tineo MD Start: 05-17-2013 End: 07-08-2014 Thyroid stimulating hormone (TSH) Michell Rodriguez PA-C Work Phone: Start: 04-29-2013 End: 05-09-2013 Follow Up Appt 3 months Joann Laurent Start: 04-29-2013 End: 05-09-2013 Pacer Clinic Ten Tineo MD Start: 04-29-2013 End: 04-29-2013 Prgrmg eval implantable in prsn dual lead abran Tineo MD Start: 04-29-2013 End: 05-09-2013 Follow Up Appt 3 months Joann Laurent Start: 04-29-2013 End: 04-29-2013 Icd device progr eval, dual Ten Peoples i, MD Start: 04-29-2013 End: 05-09-2013 Pacer Clinic Ten Tineo MD Start: 01-23-2013 End: 04-24-2013 Follow Up Appt 3 months Joann Laurent Start: 01-23-2013 End: 04-24-2013 Pacer Clinic Ten Tineo MD Start: 01-23-2013 End: 01-23-2013 Prgrmg eval implantable in prsn dual lead umairb Ten Tineo MD Start: 01-23-2013 End: 04-24-2013 Follow Up Appt 3 months Joann Laurent Start: 01-23-2013 End: 04-24-2013 Icd device progr eval, dual Ten Peoples i, MD Start: 01-23-2013 End: 04-24-2013 Pacer Clinic Ten Tineo MD Start: 10-30-2012 End: 04-24-2013 *Hepatic Function Panel Joann Laurent Start: 10-30-2012 End: 10-30-2012 Follow Up Appt 6 months Joann Laurent Start: 10-30-2012 End: 04-24-2013 Lipid 1996 panel - Serum or Plasma Ten Tineo MD Start: 10-30-2012 End: 10-30-2012 MMM Ten Tineo MD Start: 10-30-2012 End: 04-24-2013 *Hepatic Function Panel Jaonn Laurent Start: 10-30-2012 End: 10-30-2012 Follow Up Appt 6 months Joann Laurent Start: 10-30-2012 End: 04-24-2013 Lipid panel [AGGREGATE] Joann Laurent Start: 10-30-2012 End: 10-30-2012 MM Ten Tineo MD Start: 10-25-2012 End: 10-30-2012 Follow Up Appt 3 months Joann Laurent Start: 10-25-2012 End: 10-30-2012 Pacer Clinic Ten Tineo MD Start: 10-25-2012 End: 10-25-2012 Prgrmg eval implantable in prsn dual lead dfb Ten Tineo MD Start: 10-25-2012 End: 10-30-2012 Follow Up Appt 3 months Joann Laurent Start: 10-25-2012 End: 10-25-2012 Icd device progr eval, dual Ten Peoples i, MD Start: 10-25-2012 End: 10-30-2012 Pacer Clinic Ten Tineo MD Start: 04-11-2012 End: 10-30-2012 *Hepatic Function Panel Joann Laurent Start: 04-11-2012 End: 10-30-2012 Carotid duplex Ten Tineo MD Start: 04-11-2012 End: 10-30-2012 Follow Up Appt 6 months Joann Laurent Start: 04-11-2012 End: 10-30-2012 Lipid 1996 panel - Serum or Plasma Ten Tineo MD Start: 04-11-2012 End: 05-02-2012 Us abdominal real time w/image limited Ten Tineo MD Start: 04-11-2012 End: 10-30-2012 *Hepatic Function Panel Joann Laurent Start: 04-11-2012 End: 10-30-2012 Carotid duplex Ten Tineo MD Start: 04-11-2012 End: 05-02-2012 Echo exam of abdomen Ten Tineo MD Start: 04-11-2012 End: 10-30-2012 Follow Up Appt 6 months Joann Laurent Start: 04-11-2012 End: 10-30-2012 Lipid panel [AGGREGATE] Joann Laurent Start: 08-04-2011 End: 08-04-2011 Follow Up Appt 6 months Joann Laurent Start: 08-04-2011 End: 08-04-2011 Follow Up Appt 6 months Joann Laurent Plan of Treatment Date Care Activity Detail Author Start: 03-19-2028 Urine microalbumin profile DTA P,TDAP,TD (2 - Td or Tdap) [facility] Start: 04-11-2025 DIABETES SCREEN DIABETES SCREEN [facility] Start: 01-18-2025 DIABETES SCREEN DIABETES SCREEN [facility] Start: 10-11-2024 DIABETES SCREEN DIABETES SCREEN [facility] Start: 04-11-2023 COVID-19 VACCINE (#1) COVID-19 VACCI NE (#1) [facility] Immunizations Immunization Date Immunization Notes Care Provider Fa adrianne 06-18-2020 zoster vaccine recombinant Bryan Podlogar [employer]ELECTRIC RE[employer]IGERATOR SERVICER Work Phone: [facility] 04-14-2020 zoster vaccine recombinant Bryan Podlogar [employer].ELECTRIC REFRIGERATOR SERVICER Work Phone: [facility] 04-02-2020 pneumococcal polysaccharide vaccine, 23 valent Bryan Podlogar [employer].ELECTRIC REFRIGERATOR SERVICER Work Phone: [facility] 08-20-2019 influenza, high dose seasonal, preservative-free Bryan Podlogar [employer].ELECTRIC REFRIGERATOR SERVICER Work Phone: [facility] 07-25-2018 influenza, high dose seasonal, preservative-free Bryan Podlogar [employer].ELECTRIC REFRIGERATOR SERVICER Work Phone: [facility] Work Phone: 07-20-2017 zoster vaccine, live Bryan P odlogar [employer].ELECTRIC REFRIGERATOR SERVICER Work Phone: [facility] Work Phone: 05-31-2017 influenza, high dose seasonal, preservative-free Bryan Podlogar [employer].ELECTRIC REFRIGERATOR SERVICER Work Phone: [facility] 05-31-2017 pneumococcal conjuga te vaccine, 13 valent Bryan Podlogar [employer].ELECTRIC REFRIGERATOR SERVICER Work Phone: [facility] Payers Date Payer Category Payer Medicare HU[employer]NA MEDICARE HU[employer]NA MEDICARE PPO [id number] 2021-Present [phone] [address] [address] [place] [address] PPO [id number] 2021 Medicare HUMANA MEDICARE HU[employer]NA MEDICARE PPO [id number] 2021-Present [phone] [address] [address] [place] [address] PPO [id number] 2021 Medicare [id number] Social History Date Type Detail Facility Start: 04-11-2022 Tobacco smoking stat us MNIS Never smoked tobacco [facility] Start: 01-18-2022 End: 09-12-2022 Alcohol intake Current non-drinker of alcohol (finding) [facility] Start: 12-01-2016 End: 04-11-2022 Tobacco Comment Father smoked occasional cigar. 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 [facility] Start: 1935 Sex Assigned At Not on file [facility] Start: 12-20-2021 End: 04-11-2022 Exposure to SARS-CoV-2 (event) Not sure [facility] Start: 04-11-2022 Tobacco use and exposure Smokeless t obacco non-user [facility] Clinical Notes 10-19-2010 to 09-12-2022 Libertad Julio MD - 09/12/2022 3:37 PM ESTChristopher Santana Julio MD - 04/11/2022 8:48 AM EDTTelephone Encounter - Yvonne Andrews RN - 02/03/2022 1:33 PM EDT Note Date & Type Note Facility 09-12-2022 Note HNO ID: [id number] Author: Libertad Julio MD Service: ? Author Type: Physician Type: Progress Notes Filed: 09/13/2022 10:53 AM Note Text: Chief Complaint Patient presents with: Pain: Both legs experiencing burning from knees down for 3 nights. Says he takes covers off and it subsides. HPI Gabby Koehler is a 87 year old male who presents here today for Above Complaints.. Patient states that for 3 days straight he had burning sensation in his legs which lasted about 2 hours. Pain from his knee down to his feet. Improved with taking the covers off of his legs. Did not take anything OTC for pain. Did not try getting out of bed while he was having these symptoms. Denies fever/chills, falls or injury to his back, rash, bruising, swelling. No change to regimen. Did not have pain last night. No pain at all right now. Past medical history, appointments, medications, allergies reviewed. Previous Medical History PAST MEDICAL HISTORY Diagnosis Date Anemia of chronic disease Atrial flutter (HCC) CAD (coronary artery disease) 2010 CABG x3, Seeing Dr. Tineo CKD (chronic kidney disease), stage III ([facility]) Hiatal hernia with GERD 12/2016 UGI 01/10/17 at [facility] Hyperlipidemia Hypertension Inguinal hernia, bilateral Ischemic cardiomyopathy 06/2021 Pacemaker Perforated bowel (HCC) 06/2021 Pneumonia Presence of combination internal cardiac defibrillator (ICD) and pacemaker 2010 Refusal of statin medication by patient TIA (transient ischemic attack) 2017 Previous Surgical History PAST SURGICAL HISTORY Procedure Laterality Date COLONOSCOPY FLX DX W/COLLJ SPEC WHEN PFRMD 10/18/2010 LAP RPR HRNA XCPT INCAL/INGUN NCRC8/STRANGULATED 07-15-09 left LAPS REPAIR HERNIA EXCEPT INCAL/INGUN REDUCIBLE 07-15-09 right LEAD,PACEMAKER/DEFIB COMBO 2010 Family History FAMILY HISTORY Problem Relation Age of Onset Ischemic Heart Disease Father 70 Ischemic Heart Disease Brother 70s, triple bypass Cancer Brother Parkinson?s Disease Brother Patient Allergies ALLERGIES No Known Allergies Current Medications Current Outpatient Medications on File Prior to Visit Medication Sig Ascorbic Acid 500 mg chew Take 500 mg by mouth once daily. carvedilol (COREG) 6.25 mg tablet Take 1 tablet by mouth twice daily with meals. tamsulosin (FLOMAX) 0.4 mg Take 0.4 mg by mouth once daily. cholecalciferol, vitamin D3, (VITAMIN D3 ORAL) Take 1 tablet by mouth once daily. apixaban (ELIQUIS) 2.5 mg tab tab(s) Take 1 tablet by mouth twice daily. No current facility-administered medications on file prior to visit. Social History Social History Tobacco Use Smoking status: Never Smokeless tobacco: Never Tobacco comments: Father smoked occasional cigar. 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 Substance Use Topics Alcohol use: No Drug use: No Review of Symptoms REVIEW OF SYSTEMS See HPI EXAM: BP 114/66 Pulse 61 Resp 16 Wt 80.7 kg (178 lb) SpO2 96% BMI 25.54 kg/m? General Appearance: Well appearing, alert, in no acute distress, well-hydrated, well nourished.. Skin: Skin color, texture, turgor normal, no suspicious rashes or lesions. Back:no pain to palpation of vertebrae, no muscle tenderness, motor and sensory appear to be normal, no evidence of scoliosis Extremities: No deformities, edema, skin discoloration, clubbing or cyanosis. Good capillary refill. . Peripheral Pulses: Pulses: popliteal=4/4, posterior tibial=4/4. Health Maintenance List INFLUENZA(1) due on 04/14/2022 ADVANCE DIRECTIVE DISCUSSION Never done DEPRESSION ASSESSMENT Never done LDL CHOLESTEROL due on 10/11/2022 COVID-19 VACCINE(1) due on 04/11/2023 DIABETES SCREEN due on 04/11/2025 DTAP,TDAP,TD(2 - Td or Tdap) due on 03/19/2028 SHINGRIX VACCINE Completed PNEUMOCOCCAL: 65+ Completed ASSESSMENT/PLAN: 1. Leg pain, bilateral - ICD9: 729.5, ICD10: M79.604, M79.605 Neuropathy vs RLS. Will start on Requip PRN and have patient call if symptoms return and are not improved with this medication. Consider increased dosage vs EMG depending on his response. - ROPINIROLE 0.25 MG TABLET MD Libertad Ayala MD [facility] 09-12-2022 History of Presen t illness Narrative Chief Complaint Patient presents with: Pain: Both legs experiencing burning from knees down for 3 nights. Says he takes covers off and it subsides. HPI Gabby Koehler is a 87 year old male who presents here today for Above Complaints.. Patient states that for 3 days straight he had burning sensation in his legs which lasted about 2 hours. Pain from his knee down to his feet. Improved with taking the covers off of his legs. Did not take anything OTC for pain. Did not try getting out of bed while he was having these symptoms. Denies fever/chills, falls or injury to his back, rash, bruising, swelling. No change to regimen. Did not have pain last night. No pain at all right now. Past medical history, appointments, medications, allergies reviewed. Previous Medical History PAST MEDICAL HISTORY Diagnosis Date Anemia of chronic disease Atrial flutter (HCC) CAD (coronary artery disease) 2010 CABG x3, Seeing Dr. Tineo CKD (chronic kidney disease), stage III (HCC) Hiatal hernia with GERD 12/2016 UGI 01/10/17 at [facility] Hyperlipidemia Hypertension Inguinal hernia, bilateral Ischemic cardiomyopathy 06/2021 Pacemaker Perforated bowel (HCC) 06/2021 Pneumonia Presence of combination internal cardiac defibrillator (ICD) and pacemaker 2010 Refusal of statin medication by patient TIA (transient ischemic attack) 2017 Previous Surgical History PAST SURGICAL HISTORY Procedure Laterality Date COLONOSCOPY FLX DX W/COLLJ SPEC WHEN PFRMD 10/18/2010 LAP RPR HRNA XCPT INCAL/INGUN NCRC8/STRANGULATED 07-15-09 left LAPS REPAIR HERNIA EXCEPT INCAL/INGUN REDUCIBLE 07-15-09 right LEAD,PACEMAKER/DEFIB COMBO 2010 Family History FAMILY HISTORY Problem Relation Age of Onset Ischemic Heart Disease Father 70 Ischemic Heart Disease Brother 70s, triple bypass Cancer Brother Parkinson s Disease Brother Patient Allergies ALLERGIES No Known Allergies Current Medications Current Outpatient Medications on File Prior to Visit Medication Sig Ascorbic Acid 500 mg chew Take 500 mg by mouth once daily. carvedilol (COREG) 6.25 mg tablet Take 1 tablet by mouth twice daily with meals. tamsulosin (FLOMAX) 0.4 mg Take 0.4 mg by mouth once daily. cholecalciferol, vitamin D3, (VITAMIN D3 ORAL) Take 1 tablet by mouth once daily. apixaban (ELIQUIS) 2.5 mg tab tab(s) Take 1 tablet by mouth twice daily. No current facility-administered medications on file prior to visit. Social History Social History Tobacco Use Smoking status: Never Smokeless tobacco: Never Tobacco comments: Father smoked occasional cigar. 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 Substance Use Topics Alcohol use: No Drug use: No Review of Symptoms REVIEW OF SYSTEMS See HPI EXAM: BP 114/66 Pulse 61 Resp 16 Wt 80.7 kg (178 lb) SpO2 96% BMI 25.54 kg/m General Appearance: Well appearing, alert, in no acute distress, well-hydrated, well nourished.. Skin: Skin color, texture, turgor normal, no suspicious rashes or lesions. Back:no pain to palpation of vertebrae, no muscle tenderness, motor and sensory appear to be normal, no evidence of scoliosis Extremities: No deformities, edema, skin discoloration, clubbing or cyanosis. Good capillary refill. . Peripheral Pulses: Pulses: popliteal=4/4, posterior tibial=4/4. Health Maintenance List INFLUENZA(1) due on 04/14/2022 ADVANCE DIRECTIVE DISCUSSION Never done DEPRESSION ASSESSMENT Never done LDL CHOLESTEROL due on 10/11/2022 COVID-19 VACCINE(1) due on 04/11/2023 DIABETES SCREEN due on 04/11/2025 DTAP,TDAP,TD(2 - Td or Tdap) due on 03/19/2028 SHINGRIX VACCINE Completed PNEUMOCOCCAL: 65+ Completed ASSESSMENT/PLAN: 1. Leg pain, bilateral - ICD9: 729.5, ICD10: M79.604, M79.605 Neuropathy vs RLS. Will start on Requip PRN and have patient call if symptoms return and are not improved with this medication. Consider increased dosage vs EMG depending on his response. - ROPINIROLE 0.25 MG TABLET MD Libertad Ayala MD documented in this encounter [facility] 04-11-2022 Note HNO ID: [id number] Author: Libertad Julio MD Service: ? Author Type: Physician Type: Progress Notes Filed: 04/11/2022 9:09 AM Note Text: Chief Complaint Patient presents with: Follow Up: 6 month HPI Gabby Koehler is a 87 year old male who presents here today for 6 month follow up. Patient has been in good health without hospitalizations or ER visits. Has not had any falls since his last check up. CAD s/p CABG x 3 and a fib: Due for follow up appointment with cardiology in July. Has appointment scheduled. Asymptomatic on current regimen. Pacemaker working well on last check. [facility], but cannot remember the name. Will call in with update. Starts taking tonight. No bleeding symptoms with his anticoagulation. BP well controlled on current regimen. Due for repeat labs to monitor anemia and renal function. Refusing COVID vaccine. Past medical history, appointments, medications, allergies reviewed. Previous Medical History PAST MEDICAL HISTORY Diagnosis Date Anemia of chronic disease Atrial flutter (HCC) CAD (coronary artery disease) 2011 CABG x3, Seeing Dr. Tineo CKD (chronic kidney disease), stage III (HCC) Hiatal hernia with GERD 12/2016 UGI 01/10/17 at [facility] Hyperlipidemia Hypertension Inguinal hernia, bilateral Ischemic cardiomyopathy 06/2021 Pacemaker Perforated bowel (HCC) 06/2021 Pneumonia Presence of combination internal cardiac defibrillator (ICD) and pacemaker 2010 Refusal of statin medication by patient TIA (transient ischemic attack) 2017 Previous Surgical History PAST SURGICAL HISTORY Procedure Laterality Date COLONOSCOPY FLX DX W/COLLJ SPEC WHEN PFRMD 10/18/2010 LAP RPR HRNA XCPT INCAL/INGUN NCRC8/STRANGULATED 07-15-09 left LAPS REPAIR HERNIA EXCEPT INCAL/INGUN REDUCIBLE 07-15-09 right LEAD,PACEMAKER/DEFIB COMBO 2010 Family History FAMILY HISTORY Problem Relation Age of Onset Ischemic Heart Disease Father 70 Ischemic Heart Disease Brother 70s, triple bypass Cancer Brother Parkinson?s Disease Brother Patient Allergies ALLERGIES No Known Allergies Current Medications Current Outpatient Medications on File Prior to Visit Medication Sig Ascorbic Acid (VITAMIN C) 500 mg chew Take 500 mg by mouth once daily. carvedilol (COREG) 6.25 mg tablet Take 1 tablet by mouth twice daily with meals. tamsulosin (FLOMAX) 0.4 mg Take 0.4 mg by mouth once daily. cholecalciferol, vitamin D3, (VITAMIN D3 ORAL) Take 1 tablet by mouth once daily. apixaban (ELIQUIS) 2.5 mg tab tab(s) Take 1 tablet by mouth twice daily. No current facility-administered medications on file prior to visit. Social History Social History Tobacco Use Smoking status: Never Smokeless tobacco: Never Tobacco comments: Father smoked occasional cigar. 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 Substance Use Topics Alcohol use: No Drug use: No Review of Symptoms REVIEW OF SYSTEMS GENERAL: No weight loss, malaise or fevers RESPIRATORY: Negative for cough, hemoptysis, wheezing, COPD, dyspnea or shortness of breath CARDIOVASCULAR: Negative for chest pain, leg swelling, hypertension, CHF or palpitations GI: No nausea, vomiting, or diarrhea SKIN: Negative for lesions, rash, and itching EXAM: BP 106/62 Pulse (!) 55 Resp 16 Wt 81.3 kg (179 lb 3.2 oz) SpO2 97% BMI 25.71 kg/m? General Appearance: Well appearing, alert, in no acute distress, well-hydrated, well nourished.. Skin: Skin color, texture, turgor normal, no suspicious rashes or lesions. Lungs: Lungs clear to auscultation. No wheezing, rhonchi, rales.. Heart: RRR without murmur, gallop, or rubs. No ectopy. Abdomen: Normal abdominal exam, Abdomen soft, non-tender. Bowel sounds normal. No masses, organomegaly. Extremities: No deformities, edema, skin discoloration, clubbing or cyanosis. Good capillary refill. . Health Maintenance List COVID-19 VACCINE(1) Never done ADVANCE DIRECTIVE DISCUSSION Never done INFLUENZA(1) due on 04/14/2022 LDL CHOLESTEROL due on 10/11/2022 DIABETES SCREEN due on 01/18/2025 DTAP,TDAP,TD(2 - Td or Tdap) due on 03/19/2028 SHINGRIX VACCINE Completed PNEUMOCOCCAL: 65+ Completed Data reviewed Component Latest Ref Rng AND Units 10/11/2021 01/18/2022 WBC 3.70 - 11.00 k/uL 7.42 6.58 RBC 4.20 - 6.00 m/uL 4.88 4.80 Hemoglobin 13.0 - 17.0 g/dL 12.4 (L) 13.3 Hematocrit 39.0 - 51.0 % 41.3 43.1 MCV 80.0 - 100.0 fL 84.6 89.8 MCH 26.0 - 34.0 pg 25.4 (L) 27.7 MCHC 30.5 - 36.0 g/dL 30.0 (L) 30.9 RDW-CV 11.5 - 15.0 % 16.6 (H) 15.3 (H) Platelet Count 150 - 400 k/uL 288 210 MPV 9.0 - 12.7 fL 8.9 (L) 9.2 Neut% % 47.2 Abs Neut (ANC) 1.45 - 7.50 k/uL 3.11 Lymph% % 38.0 Abs Lymph 1.00 - 4.00 k/uL 2.50 [place]% % 11.7 Abs [place] <0.87 k/uL 0.77 Eosin% % 1.7 Abs Eosin <0.46 k/uL 0.11 Baso% % 1.2 Abs Baso <0.11 k/uL 0.08 Immature Gran % % 0.2 (more content not included)... [facility] 04-11-2022 History of Presen t illness Narrative Chief Complaint Patient presents with: Follow Up: 6 month HPI Gabby Koehler is a 87 year old male who presents here today for 6 month follow up. Patient has been in good health without hospitalizations or ER visits. Has not had any falls since his last check up. CAD s/p CABG x 3 and a fib: Due for follow up appointment with cardiology in July. Has appointment scheduled. Asymptomatic on current regimen. Pacemaker working well on last check. [facility] that [facility] and [facility] him on [facility] medication, but cannot remember the name. Will call in with update. Starts taking tonight. No bleeding symptoms with his anticoagulation. BP well controlled on current regimen. Due for repeat labs to monitor anemia and renal function. Refusing COVID vaccine. Past medical history, appointments, medications, allergies reviewed. Previous Medical History PAST MEDICAL HISTORY Diagnosis Date Anemia of chronic disease Atrial flutter (HCC) CAD (coronary artery disease) 2011 CABG x3, Seeing Dr. Tineo CKD (chronic kidney disease), stage III (HCC) Hiatal hernia with GERD 12/2016 UGI 01/10/17 at [facility] Hyperlipidemia Hypertension Inguinal hernia, bilateral Ischemic cardiomyopathy 06/2021 Pacemaker Perforated bowel (HCC) 06/2021 Pneumonia Presence of combination internal cardiac defibrillator (ICD) and pacemaker 2010 Refusal of statin medication by patient TIA (transient ischemic attack) 2017 Previous Surgical History PAST SURGICAL HISTORY Procedure Laterality Date COLONOSCOPY FLX DX W/COLLJ SPEC WHEN PFRMD 10/18/2010 LAP RPR HRNA XCPT INCAL/INGUN NCRC8/STRANGULATED 07-15-09 left LAPS REPAIR HERNIA EXCEPT INCAL/INGUN REDUCIBLE 07-15-09 right LEAD,PACEMAKER/DEFIB COMBO 2010 Family History FAMILY HISTORY Problem Relation Age of Onset Ischemic Heart Disease Father 70 Ischemic Heart Disease Brother 70s, triple bypass Cancer Brother Parkinson s Disease Brother Patient Allergies ALLERGIES No Known Allergies Current Medications Current Outpatient Medications on File Prior to Visit Medication Sig Ascorbic Acid (VITAMIN C) 500 mg chew Take 500 mg by mouth once daily. carvedilol (COREG) 6.25 mg tablet Take 1 tablet by mouth twice daily with meals. tamsulosin (FLOMAX) 0.4 mg Take 0.4 mg by mouth once daily. cholecalciferol, vitamin D3, (VITAMIN D3 ORAL) Take 1 tablet by mouth once daily. apixaban (ELIQUIS) 2.5 mg tab tab(s) Take 1 tablet by mouth twice daily. No current facility-administered medications on file prior to visit. Social History Social History Tobacco Use Smoking status: Never Smokeless tobacco: Never Tobacco comments: Father smoked occasional cigar. 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 Substance Use Topics Alcohol use: No Drug use: No Review of Symptoms REVIEW OF SYSTEMS GENERAL: No weight loss, malaise or fevers RESPIRATORY: Negative for cough, hemoptysis, wheezing, COPD, dyspnea or shortness of breath CARDIOVASCULAR: Negative for chest pain, leg swelling, hypertension, CHF or palpitations GI: No nausea, vomiting, or diarrhea SKIN: Negative for lesions, rash, and itching EXAM: BP 106/62 Pulse (!) 55 Resp 16 Wt 81.3 kg (179 lb 3.2 oz) SpO2 97% BMI 25.71 kg/m General Appearance: Well appearing, alert, in no acute distress, well-hydrated, well nourished.. Skin: Skin color, texture, turgor normal, no suspicious rashes or lesions. Lungs: Lungs clear to auscultation. No wheezing, rhonchi, rales.. Heart: RRR without murmur, gallop, or rubs. No ectopy. Abdomen: Normal abdominal exam, Abdomen soft, non-tender. Bowel sounds normal. No masses, organomegaly. Extremities: No deformities, edema, skin discoloration, clubbing or cyanosis. Good capillary refill. . Health Maintenance List COVID-19 VACCINE(1) Never done ADVANCE DIRECTIVE DISCUSSION Never done INFLUENZA(1) due on 04/14/2022 LDL CHOLESTEROL due on 10/11/2022 DIABETES SCREEN due on 01/18/2025 DTAP,TDAP,TD(2 - Td or Tdap) due on 03/19/2028 SHINGRIX VACCINE Completed PNEUMOCOCCAL: 65+ Completed Data reviewed Component Latest Ref Rng & Units 10/11/2021 01/18/2022 WBC 3.70 - 11.00 k/uL 7.42 6.58 RBC 4.20 - 6.00 m/uL 4.88 4.80 Hemoglobin 13.0 - 17.0 g/dL 12.4 (L) 13.3 Hematocrit 39.0 - 51.0 % 41.3 43.1 MCV 80.0 - 100.0 fL 84.6 89.8 MCH 26.0 - 34.0 pg 25.4 (L) 27.7 MCHC 30.5 - 36.0 g/dL 30.0 (L) 30.9 RDW-CV 11.5 - 15.0 % 16.6 (H) 15.3 (H) Platelet Count 150 - 400 k/uL 288 210 MPV 9.0 - 12.7 fL 8.9 (L) 9.2 Neut% % 47.2 Abs Neut (ANC) 1.45 - 7.50 k/uL 3.11 Lymph% % 38.0 Abs Lymph 1.00 - 4.00 k/uL 2.50 [place]% % 11.7 Abs [place] <0.87 k/uL 0.77 Eosin% % 1.7 Abs Eosin <0.46 k/uL 0.11 Baso% % 1.2 Abs Baso <0.11 k/uL 0.08 Immature Gran % % 0.2 IMMATURE GRANS (ABS) <0.10 k/uL <0.03 NRBC /100 WBC 0.0 Absolute nRBC <0.01 k/uL <0.01 <0.01 DTYPE Auto Protein, Total 6.3 - 8.0 g/dL 8.5 (H) 7.5 Albumin 3.9 - 4.9 g/dL 3.9 3.9 Calcium 8.5 - 10.2 mg/dL 9.5 9.1 Bilirubin, Total 0.2 - 1.3 mg/dL 0.2 0.4 Alkaline Phosphatase 38 - 113 U/L 67 59 AST 14 - 40 U/L 16 18 ALT 10 - 54 U/L 8 (L) 9 (L) Glucose 74 - 99 mg/dL 81 55 (L) BUN 9 - 24 mg/dL 33 (H) 36 (H) Creatinine 0.73 - 1.22 mg/dL 1.96 (H) 1.89 (H) Sodium 136 - 144 mmol/L 141 141 Potassium 3.7 - 5.1 mmol/L 4.8 5.1 Chloride 97 - 105 mmol/L 106 (H) 106 (H) CO2 22 - 30 mmol/L 26 26 Anion Gap 9 - 18 mmol/L 9 9 eGFR >=60 mL/min/1.73m 33 (L) 34 (L) Total Cholesterol, Nonfasting <200 mg/dL 210 (H) Triglycerides, Nonfasting <150 mg/dL 149 HDL Cholesterol, Nonfasting >39 mg/dL 43 LDL Cholesterol, Nonfasting <100 mg/dL 137 (H) Non HDL Cholesterol, Nonfasting <130 mg/dL 167 (H) VLDL Cholesterol, Nonfasting <30 mg/dL 30 (H) Total Chol/HDL Ratio, Nonfasting <5.10 mg/dL 4.88 LDL/HDL Ratio, Nonfasting <2.54 mg/dL 3.19 (H) PT Sec 9.7 - 13.0 sec 11.7 PT INR 0.9 - 1.3 1.1 APTT 23.0 - 32.4 sec 31.7 ASSESSMENT/PLAN: 1. Coronary artery disease involving [place] heart without angina pectoris, unspecified vessel or lesion type - ICD9: 414.01, ICD10: I25.10 (primary diagnosis) Asymptomatic on medical management. [facility] Keep scheduled OV with cardiology in July. Red flags for re-assessment reviewed with patient in detail. - CBC 2. Atrial flutter, unspecified type (HCC) - ICD9: 427.32, ICD10: I48.92 Rate controlled on current regimen. 3. Presence of combination internal cardiac defibrillator (ICD) and pacemaker - ICD9: V45.02, ICD10: Z95.810 Working well. Follow up with cardiology. 4. Stage 3b chronic kidney disease (HCC) - ICD9: 585.3, ICD10: N18.32 Recheck CMP. Low sodium diet. Avoid NSAIDs. 5. TIA (transient ischemic attack) - ICD9: 435.9, ICD10: G45.9 No recurrent symptoms. Refusing statin. Continue other secondary stroke prophylaxis. 6. Primary hypertension - ICD9: 401.9, ICD10: I10 - good control - Continue current medication(s) - Encouraged dietary sodium restriction/DASH diet - Recommended regular aerobic exercise. - Goal of BP <130/80 - COMP METABOLIC PANEL 7. Hyperlipidemia, unspecified hyperlipidemia type - ICD9: 272.4, ICD10: E78.5 - to be determined upon return of lab results - Encouraged following a low fat, low cholesterol diet. - Discussed the benefits of regular aerobic exercise and weight loss. 8. Refusal of statin medication by patient - ICD9: V64.2, ICD10: Z53.20 Discussed benefits and risks. Libertad Julio MD documented in this encounter [facility] 02-03-2022 Miscellaneous Notes Patient returned call and given provider's message below and patient verbalized understanding. Marlee Andrews RN Left message to return call ----- Message from Libertad Julio MD sent at 02/03/2022 11:41 AM EDT ----- CT scan shows emphysema with stable subcentimeter nodules. Each <3 mm. No new nodules noted. Without other risk factors for lung cancer, would not recommend follow up at this time. documented in this encounter [facility] 02-02-2022 Note HNO ID: [id number] Author: RT Kuldip(R) Service: ? Author Type: Learning Engineer Type: Progress Notes Filed: 02/02/2022 1:38 PM Note Text: Radiology Service Progress Note PATIENT NAME: Gabby Koehler DATE OF SERVICE: February 02, 2022 TIME: 1:38 PM PATIENT IDENTITY VERIFICATION COMPLETED USING TWO (2) IDENTIFIERS: Name and Date of confirmed by patient verbally. FALL SCREENING: Has the patient had 2 falls in the last year or 1 fall with injury or currently using an Ambulatory Assistive Device (Walker, Cane, Wheelchair, Crutches, etc.)? No PATIENT GENDER DATA: Male PATIENT RELEVANT IMPLANT DATA REVIEWED: Not Applicable RADIOLOGY DEPARTMENT: CT; Exam(s) Completed: Chest PERIPHERAL IV DATA: Not applicable SIGNED BY: RT Haritha(R) February 02, 2022 1:38 PM [facility] 02-02-2022 History of Presen t illness Narrative Radiology Service Progress Note PATIENT NAME: Gabby Koehler DATE OF SERVICE: February 02, 2022 TIME: 1:38 PM PATIENT IDENTITY VERIFICATION COMPLETED USING TWO (2) IDENTIFIERS: Name and Date of confirmed by patient verbally. FALL SCREENING: Has the patient had 2 falls in the last year or 1 fall with injury or currently using an Ambulatory Assistive Device (Walker, Cane, Wheelchair, Crutches, etc.)? No PATIENT GENDER DATA: Male PATIENT RELEVANT IMPLANT DATA REVIEWED: Not Applicable RADIOLOGY DEPARTMENT: CT; Exam(s) Completed: Chest PERIPHERAL IV DATA: Not applicable SIGNED BY: RT Haritha(R) February 02, 2022 1:38 PM documented in this encounter [facility] 01-18-2022 Note HNO ID: [id number] Author: RT Angelica(Malcom) Service: Radiology Author Type: Technologist Type: Progress Notes Filed: 01/18/2022 8:56 AM Note Text: Radiology Service Progress Note PATIENT NAME: Gabby Koehler DATE OF SERVICE: January 18, 2022 TIME: 8:47 AM PATIENT IDENTITY VERIFICATION COMPLETED USING TWO (2) IDENTIFIERS: Name and Date of confirmed by patient verbally. FALL SCREENING: Has the patient had 2 falls in the last year or 1 fall with injury or currently using an Ambulatory Assistive Device (Walker, Cane, Wheelchair, Crutches, etc.)? No PATIENT GENDER DATA: Male PATIENT RELEVANT IMPLANT DATA REVIEWED: Yes RADIOLOGY DEPARTMENT: General X-ray: Exam(s) Completed: Chest X-Ray PERIPHERAL IV DATA: Not applicable SIGNED BY: RT Angelica(R) January 18, 2022 8:47 AM [facility] 01-18-2022 Note HNO ID: [id number] Author: Bryan Lozano APRN.ELECTRIC REFRIGERATOR SERVICER Service: ? Author Type: Nurse Practitioner Type: Progress Notes Filed: 01/18/2022 8:55 AM Note Text: 01/18/2022 Patient presents with: Coughing Up Blood: x1 year on and off SUBJECTIVE: This is a 86 year old that is here today for Above Complaints. For the last year has been spitting up blood intermittently. Aggravated by activity. He has been on eliquis for some years. He doesn't thinks he necessarily cough the blood up or not. At times streaks or flecks of blood in mucous other times can be a tablespoon or less of what patient reports is just blood. Denies weight loss, dizziness, lightheadedness, hx of tobacco use, hx of blood clots, bleeding gums, nose bleeds, SOB, dyspnea, cough, chest pain, leg edema, melana, hematochezia, hematemesis, or hematuria. 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 PAST MEDICAL HISTORY Diagnosis Date - Anemia of chronic disease - Atrial flutter (HCC) - CAD (coronary artery disease) 2011 CABG x3, Seeing Dr. Tineo - CKD (chronic kidney disease), stage III ([facility]) - Hiatal hernia with GERD 12/2016 UGI 01/10/17 at [facility] - Hyperlipidemia - Hypertension - Inguinal hernia, bilateral - Ischemic cardiomyopathy 06/2021 - Pacemaker - Perforated bowel (HCC) 06/2021 - Pneumonia - Presence of combination internal cardiac defibrillator (ICD) and pacemaker 2010 - Refusal of statin medication by patient - TIA (transient ischemic attack) 2018 ALLERGIES Patient has no known allergies. MEDICATIONS Current Outpatient Medications Medication Sig - carvedilol (COREG) 6.25 mg tablet Take 1 tablet by mouth twice daily with meals. - cholecalciferol, vitamin D3, (VITAMIN D3 ORAL) Take 1 tablet by mouth once daily. - apixaban (ELIQUIS) 2.5 mg tab tab(s) Take 1 tablet by mouth twice daily. - tamsulosin (FLOMAX) 0.4 mg Take 0.4 mg by mouth once daily. No current facility-administered medications for this visit. Medications and allergies reviewed by this provider. SOCIAL HISTORY Social History Tobacco Use - Smoking status: Never Smoker - Smokeless tobacco: Never Used - Tobacco comment: Father smoked occasional cigar. 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 Substance Use Topics - Alcohol use: No - Drug use: No REVIEW OF SYSTEMS All other reviewed and negative other than HPI. OBJECTIVE: BP 92/60 Pulse 67 Temp 36 ?C (96.8 ?F) Resp 20 Wt 78.8 kg (173 lb 12.8 oz) SpO2 97% BMI 24.94 kg/m? . Vital signs reviewed by this provider. APPEARANCE Well appearing, alert, in no acute distress, well-hydrated, well nourished. EYES conjunctiva and sclera normal. Oropharynx: Lips, mucosa, and tongue normal, teeth and gums normal, oropharynx normal NECK Supple, no adenopathy; thyroid symmetric, normal size, no bruits HEART RRR with normal S1 and S2, no murmurs, no gallops, no JVD appreciated LUNG clear to auscultation. No wheezes, rhonchi, or rales EXTREMITIES Extremities normal, No deformities, No skin discoloration and No edema SKIN Skin color, texture, turgor normal, no suspicious rashes or lesions to exposed skin ADVANCE DIRECTIVE DISCUSSION Never done COVID-19 VACCINE(1) due on 04/09/2022 INFLUENZA(Season Ended) due on 04/14/2022 LDL CHOLESTEROL due on 10/11/2022 DIABETES SCREEN due on 10/11/2024 DTAP,TDAP,TD(2 - Td or Tdap) due on 03/19/2028 SHINGRIX VACCINE Completed PNEUMOCOCCAL: 65+ Completed ASSESSMENT/PLAN: 1. Spitting up blood - ICD9: 786.30, ICD10: R04.2 - consider related to blood thinner vs unknown pulmonary source - CBC + DIFF - UA DIP, URINE (POC) - COMP METABOLIC PANEL - PROTHROMBIN TIME/PT - ACTIVATED PTT - XR CHEST 2V FRONTAL/LAT - follow-up pending testing Bryan Lozano, [employer].ELECTRIC REFRIGERATOR SERVICER Prescription instructions reviewed with patient as applicable. Patient advised if symptoms do not improve or if symptoms worsen sooner, to contact their primary care physician. Potential red flag symptoms discussed with the patient. Reviewed appropriate action plan to take if red flag symptoms occur. Patient agreeable to treatment plan. [facility] 01-18-2022 History of Presen t illness Narrative 01/18/2022 Patient presents with: Coughing Up Blood: x1 year on and off SUBJECTIVE: This is a 86 year old that is here today for Above Complaints. For the last year has been spitting up blood intermittently. Aggravated by activity. He has been on eliquis for some years. He doesn't thinks he necessarily cough the blood up or not. At times streaks or flecks of blood in mucous other times can be a tablespoon or less of what patient reports is just blood. Denies weight loss, dizziness, lightheadedness, hx of tobacco use, hx of blood clots, bleeding gums, nose bleeds, SOB, dyspnea, cough, chest pain, leg edema, melana, hematochezia, hematemesis, or hematuria. 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 PAST MEDICAL HISTORY Diagnosis Date Anemia of chronic disease Atrial flutter (HCC) CAD (coronary artery disease) 2010 CABG x3, Seeing Dr. Tineo CKD (chronic kidney disease), stage III ([facility]) Hiatal hernia with GERD 12/2016 UGI 01/10/17 at [facility] Hyperlipidemia Hypertension Inguinal hernia, bilateral Ischemic cardiomyopathy 06/2021 Pacemaker Perforated bowel (HCC) 06/2021 Pneumonia Presence of combination internal cardiac defibrillator (ICD) and pacemaker 2010 Refusal of statin medication by patient TIA (transient ischemic attack) 2018 ALLERGIES Patient has no known allergies. MEDICATIONS Current Outpatient Medications Medication Sig carvedilol (COREG) 6.25 mg tablet Take 1 tablet by mouth twice daily with meals. cholecalciferol, vitamin D3, (VITAMIN D3 ORAL) Take 1 tablet by mouth once daily. apixaban (ELIQUIS) 2.5 mg tab tab(s) Take 1 tablet by mouth twice daily. tamsulosin (FLOMAX) 0.4 mg Take 0.4 mg by mouth once daily. No current facility-administered medications for this visit. Medications and allergies reviewed by this provider. SOCIAL HISTORY Social History Tobacco Use Smoking status: Never Smoker Smokeless tobacco: Never Used Tobacco comment: Father smoked occasional cigar. 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 Substance Use Topics Alcohol use: No Drug use: No REVIEW OF SYSTEMS All other reviewed and negative other than HPI. OBJECTIVE: BP 92/60 Pulse 67 Temp 36 C (96.8 F) Resp 20 Wt 78.8 kg (173 lb 12.8 oz) SpO2 97% BMI 24.94 kg/m . Vital signs reviewed by this provider. APPEARANCE Well appearing, alert, in no acute distress, well-hydrated, well nourished. EYES conjunctiva and sclera normal. Oropharynx: Lips, mucosa, and tongue normal, teeth and gums normal, oropharynx normal NECK Supple, no adenopathy; thyroid symmetric, normal size, no bruits HEART RRR with normal S1 and S2, no murmurs, no gallops, no JVD appreciated LUNG clear to auscultation. No wheezes, rhonchi, or rales EXTREMITIES Extremities normal, No deformities, No skin discoloration and No edema SKIN Skin color, texture, turgor normal, no suspicious rashes or lesions to exposed skin ADVANCE DIRECTIVE DISCUSSION Never done COVID-19 VACCINE(1) due on 04/09/2022 INFLUENZA(Season Ended) due on 04/14/2022 LDL CHOLESTEROL due on 10/11/2022 DIABETES SCREEN due on 10/11/2024 DTAP,TDAP,TD(2 - Td or Tdap) due on 03/19/2028 SHINGRIX VACCINE Completed PNEUMOCOCCAL: 65+ Completed ASSESSMENT/PLAN: 1. Spitting up blood - ICD9: 786.30, ICD10: R04.2 - consider related to blood thinner vs unknown pulmonary source - CBC + DIFF - UA DIP, URINE (POC) - COMP METABOLIC PANEL - PROTHROMBIN TIME/PT - ACTIVATED PTT - XR CHEST 2V FRONTAL/LAT - follow-up pending testing Bryan Lozano APRN.CNP Prescription instructions reviewed with patient as applicable. Patient advised if symptoms do not improve or if symptoms worsen sooner, to contact their primary care physician. Potential red flag symptoms discussed with the patient. Reviewed appropriate action plan to take if red flag symptoms occur. Patient agreeable to treatment plan. documented in this encounter [facility] 01-18-2022 Miscellaneous Notes Reviewed. Bryan Lozano APRN.CNP Triaged patient for complaint of spitting up blood for which he scheduled an appointment. He denies cough/vomiting. States this started about 6-8 months ago. Occurs intermittently with activiity. Resolves with rest. He spits up blood tinged clear whitish mucous that varies with the amount of blood present. Sometimes flecks, sometimes a tablespoon of red blood. He does not have any other symptoms. Denies chest pain, SOB, dizziness, lightheadedness. Does not cough prior to spitting up blood. Reviewed triage protocol with patient. Verbalized understanding. Disposition: See PCP within 24 hours. He had already scheduled an appointment. He has been on Eliquis for years for a TIA in 2018. Elisa Ashford RN Reason for Disposition Taking Coumadin (warfarin) or other strong blood thinner, or known bleeding disorder (e.g., thrombocytopenia) Answer Assessment - Initial Assessment Questions 1. ONSET: doesn't cough but produces mucous and spits out blood tinged mucous 2. SEVERITY: began 6-8 months ago without cough/coughing spell. Intermittent episodes 3. SPUTUM: clear whitish blood tinged 4. HEMOPTYSIS: How much blood? varies from flecks, streaks, to tablespoon 5. DIFFICULTY BREATHING: denies chest pain, SOB, difficulty breathing 6. FEVER: Denies fever 7. CARDIAC HISTORY: H/O atrial flutter, CAD, cardiomyopathy TAKES ELIQUIS FOR HISTORY OF TIA 8. LUNG HISTORY: No history of lung disease. Non-smoker 9. PE RISK FACTORS: No history of PE, DVT 10. OTHER SYMPTOMS: No other symptoms. Denies dizziness, lightheadedness. 11. : N/A 12. TRAVEL: No travel history Protocols used: COUGHING UP [id number] documented in this encounter [facility] 01-17-2022 Miscellaneous Notes Can we please triage this man for complaints of spitting up blood. Is he coughing it up or vomiting it up? Thanks, Bryan Lozano APRN.ELECTRIC REFRIGERATOR SERVICER documented in this encounter [facility] 10-15-2021 Miscellaneous Notes Reviewed. Patient called and given message below. Declines Lipitor at this time. Will be in in 2-4 weeks for labs. Agreeable to increasing fluid intake. Michell Ontiveros LPN Lab show improving anemia with worsening CKD in stage IIIb range and elevated protein levels. I suspect that the patient has not been drinking enough fluids and his blood is concentrated. Recommend he increase fluid intake to 4-6 bottles of water per day, keep sodium intake <2,000 mg per day, and avoid NSAIDs. Recheck labs in 2-4 weeks. Total cholesterol level is high compared to 1 year ago. Recommend low cholesterol diet. Would add on moderate intensity statin Lipitor 20 mg daily. Will call rx in to pharmacy if patient agreeable. documented in this encounter [facility] 10-11-2021 Note HNO ID: [id number] Author: Libertad Julio MD Service: ? Author Type: Physician Type: Progress Notes Filed: 10/12/2021 9:05 AM Note Text: Chief Complaint Patient presents with: F/U 6 months HPI Gabby Koehler is a 86 year old male who presents here today for 6 month follow up. Patient has been in good health without recent hospitalizations, ER visits, or falls. Patient following up with Dr. Cedillo for UTI. STarted on Cipro x 10 days at last visit. Has completed abx without side effects. No change in urinary sympotms. Denies dysuria, hematuria, urgency, frequency, fever/chills, nausea, vomiting, abdominal pain, flank pain. Has follow up appointment with urology on 11/01. ASHD/a fib: Patient stable without angina. No changes to regimen at last OV with Dr. Tineo in April. ?Patient denies hypotensive symptoms since lowering his medication.?Denies bleeding/bruising with Eliquis.?Recommended?f/u in 9 months. Patient refusing COVID vaccination. Discussed risks and benefits as well as high high risk status. Past medical history, appointments, medications, allergies reviewed. Previous Medical History PAST MEDICAL HISTORY Diagnosis Date - Anemia of chronic disease - Atrial flutter (HCC) - CAD (coronary artery disease) 2010 CABG x3, Seeing Dr. Tineo - CKD (chronic kidney disease), stage III (HCC) - Hiatal hernia with GERD 12/2016 UGI 01/10/17 at [facility] - Hyperlipidemia - Hypertension - Inguinal hernia, bilateral - Ischemic cardiomyopathy 06/2021 - Pacemaker - Perforated bowel (HCC) 06/2021 - Pneumonia - Presence of combination internal cardiac defibrillator (ICD) and pacemaker 2010 - TIA (transient ischemic attack) 2017 Previous Surgical History PAST SURGICAL HISTORY Procedure Laterality Date - COLONOSCOPY FLX DX W/COLLJ SPEC WHEN PFRMD 10/18/2010 - LAP RPR HRNA XCPT INCAL/INGUN NCRC8/STRANGULATED 07-15-09 left - LAPS REPAIR HERNIA EXCEPT INCAL/INGUN REDUCIBLE 07-15-09 right - LEAD,PACEMAKER/DEFIB COMBO 2010 Family History FAMILY HISTORY Problem Relation Age of Onset - Ischemic Heart Disease Father 70 - Ischemic Heart Disease Brother 70s, triple bypass - Cancer Brother - Parkinson?s Disease Brother Patient Allergies ALLERGIES No Known Allergies Current Medications Current Outpatient Medications on File Prior to Visit Medication Sig - tamsulosin (FLOMAX) 0.4 mg Take 0.4 mg by mouth once daily. - carvedilol (COREG) 6.25 mg tablet Take 1 tablet by mouth twice daily with meals. - cholecalciferol, vitamin D3, (VITAMIN D3 ORAL) Take 1 tablet by mouth once daily. - apixaban (ELIQUIS) 2.5 mg tab tab(s) Take 1 tablet by mouth twice daily. No current facility-administered medications on file prior to visit. Social History Social History Tobacco Use - Smoking status: Never Smoker - Smokeless tobacco: Never Used - Tobacco comment: Father smoked occasional cigar. 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 Substance Use Topics - Alcohol use: No - Drug use: No Review of Symptoms REVIEW OF SYSTEMS GENERAL: No weight loss, malaise or fevers RESPIRATORY: Negative for cough, hemoptysis, wheezing, COPD, dyspnea or shortness of breath CARDIOVASCULAR: Negative for chest pain, leg swelling, hypertension, CHF or palpitations GI: No nausea, vomiting, or diarrhea SKIN: Negative for lesions, rash, and itching EXAM: BP 120/62 Pulse 65 Resp 16 Wt 77 kg (169 lb 12.8 oz) SpO2 98% BMI 24.36 kg/m? General Appearance: Well appearing, alert, in no acute distress, well-hydrated, well nourished.. Skin: Skin color, texture, turgor normal, no suspicious rashes or lesions. Lungs: Lungs clear to auscultation. No wheezing, rhonchi, rales.. Heart: RRR without murmur, gallop, or rubs. No ectopy. Abdomen: Normal abdominal exam, Abdomen soft, non-tender. Bowel sounds normal. No masses, organomegaly, Negative CVA tenderness. Extremities: No deformities, edema, skin discoloration, clubbing or cyanosis. Good capillary refill. . Health Maintenance List INFLUENZA(1) due on 04/14/2021 ADVANCE DIRECTIVE DISCUSSION Never done LDL CHOLESTEROL due on 10/15/2021 COVID-19 VACCINE(1) due on 04/09/2022 DIABETES SCREEN due on 04/09/2024 DTAP,TDAP,TD(2 - Td or Tdap) due on 03/19/2028 PNEUMOVAX AGE 65 AND OVER WITH 5YR LOOKBACK Completed SHINGRIX VACCINE Completed MENINGOCOCCAL CONJUGATE Aged Out Data reviewed Component Latest Ref Rng AND Units 04/09/2021 04/14/2021 04/20/2021 WBC 3.70 - 11.00 k/uL 13.08 (H) RBC 4.20 - 6.00 m/uL 4.31 Hemoglobin 13.0 - 17.0 g/dL 11.4 (L) Hematocrit 39.0 - 51.0 % 37.8 (L) MCV 80.0 - 100.0 fL 87.7 MCH 26.0 - 34.0 pG 26.5 MCHC 30.5 - 36.0 g/dL 30.2 (L) RDW-CV 11.5 - 15.0 % 14.7 Platelet Count 150 - 400 k/uL 336 MPV 9.0 - 12.7 fL 8.6 (L) Neut% % 70.9 Abs Neut (ANC) 1.45 - 7.50 k/uL 9.27 (H) Lymph% % 19.0 Abs Lymph 1.00 - 4.00 k/uL 2.48 [place]% % 8.9 Abs [place] <0.87 k/uL 1.17 (H) Eos (more content not included)... [facility] documented as of this encounter (statuses as of 01/18/2022) [facility]2011 History of Past illness Narrative* Problem Noted Date Resolved Date Rectal bleeding 10/19/2010 09/15/2017 Pneumonia 10/31/2016 documented as of this encounter (statuses as of 01/19/2022) [address] History of Past illness Narrative* Problem Noted Date Resolved Date Rectal bleeding 10/19/2010 09/15/2017 Pneumonia 10/31/2016 documented as of this encounter (statuses as of 02/03/2022) [facility] History of Past illness Narrative* Problem Noted Date Resolved Date Rectal bleeding 10/19/2010 09/15/2017 Pneumonia 10/31/2016 documented as of this encounter (statuses as of 02/03/2022) [facility] History of Past illness Narrative* Problem Noted Date Resolved Date Rectal bleeding 10/19/2010 09/15/2017 Pneumonia 10/31/2016 documented as of this encounter (statuses as of 03/02/2022) [facility] History of Past illness Narrative* Problem Noted Date Resolved Date Rectal bleeding 10/19/2010 09/15/2017 Pneumonia 10/31/2016 documented as of this encounter (statuses as of 03/04/2022) [facility] History of Past illness Narrative* Problem Noted Date Resolved Date Rectal bleeding 10/19/2010 09/15/2017 Pneumonia 10/31/2016 documented as of this encounter (statuses as of 04/11/2022) [address] History of Past illness Narrative* Problem Noted Date Resolved Date Rectal bleeding 10/19/2010 09/15/2017 Pneumonia 10/31/2016 documented as of this encounter (statuses as of 09/13/2022) [facility] Diagnosis Spitting up blood- Primary Hemoptysis, unspecified [facility] Diagnosis Hemoptysis Hemoptysis, unspecified [facility] Diagnosis Stage 3b chronic kidney disease (HCC)- Primary [facility] Diagnosis Coronary artery disease involving [place] heart without angina pectoris, unspecified vessel or lesion type- Primary Atrial flutter, unspecified type (HCC) Presence of combination internal cardiac defibrillator (ICD) and pacemaker Stage 3b chronic kidney disease (HCC) TIA (transient ischemic attack) Unspecified transient cerebral ischemia Primary hypertension Unspecified essential hypertension Hyperlipidemia, unspecified hyperlipidemia type Refusal of statin medication by patient Surgical or other procedure not carried out because of patient's decision [facility] Diagnosis Leg pain, bilateral- Primary Pain in limb Atrial flutter, unspecified type (HCC) Chronic kidney disease, stage 3b (HCC) documented in this encounter [facility] Reason for Referral Specialty Diagnoses / Procedures Referred By Bertha t Referred To Contact CT IMAGING Diagnoses Hemoptysis Procedures CT CHEST WO IVCON DIAGNOSTIC COMPUTED TOMOGRAPHY THORAX W/O CNTRST PodlogarBryan, WINERY CELLAR HAND.ELECTRIC REFRIGERATOR SERVICER [address] [place] [address] Ct Imaging Referral ID Status Reason Start Date Expiration Date V isits Requested Visits Authorized [id number] Closed Auto-Generate d Referral 02/02/2022 03/04/2022 1 1 Summary Purpose Family History No Family History Records Found Advance Directives No Advanced Directives Records Found Additional Source Comments Source Comments (unrecognize d section and content) In the event this informatio n is protected by the Federal Confidentiality of Alcohol and Drug Abuse Patient Records regulations: The Federal rules restrict any use of the information to criminally investigate or prosecute any alcohol or drug abuse patient.[facility] [place] the event this information is protected by the Federal Confidentiality of Alcohol and Drug Abuse Patient Records regulations: The Federal rules restrict any use of the information to criminally investigate or prosecute any alcohol or drug abuse patient.[facility] [place] the event this information is protected by the Federal Confidentiality of Alcohol and Drug Abuse Patient Records regulations: The Federal rules restrict any use of the information to criminally investigate or prosecute any alcohol or drug abuse patient.[facility] [place] the event this information is protected by the Federal Confidentiality of Alcohol and Drug Abuse Patient Records regulations: The Federal rules restrict any use of the information to criminally investigate or prosecute any alcohol or drug abuse patient.[facility] [place] the event this information is protected by the Federal Confidentiality of Alcohol and Drug Abuse Patient Records regulations: The Federal rules restrict any use of the information to criminally investigate or prosecute any alcohol or drug abuse patient.[facility] the event this information is protected by the Federal Confidentiality of Alcohol and Drug Abuse Patient Records regulations: The Federal rules restrict any use of the information to criminally investigate or prosecute any alcohol or drug abuse patient.[facility] [place]In the event this information is protected by the Federal Confidentiality of Alcohol and Drug Abuse Patient Records regulations: The Federal rules restrict any use of the information to criminally investigate or prosecute any alcohol or drug abuse patient.[facility] [place]In the event this information is protected by the Federal Confidentiality of Alcohol and Drug Abuse Patient Records regulations: The Federal rules restrict any use of the information to criminally investigate or prosecute any alcohol or drug abuse patient.[facility] [place] Reason for Visit (unrecogniz ed section and content) Reason Comments Coughing Up Blood Reason Comments Radiology CT Specialty Diagnoses / Procedures Referred By Bertha t Referred To Contact CT IMAGING Diagnoses Hemoptysis Procedures CT CHEST WO IVCON DIAGNOSTIC COMPUTED TOMOGRAPHY THORAX W/O CNTRST Bryan Lozano APRN.ELECTRIC REFRIGERATOR SERVICER [address] [place] [address] Ct Imaging Referral ID Status Reason Start Date Expiration Date V isits Requested Visits Authorized [id number] Closed Auto-Generate d Referral 02/02/2022 03/04/2022 1 1 Reason Comments Results Reason Comments Returning Patient's Call Reason Comments Follow Up 6 month Reason Comments Pain Both legs experienci ng burning from knees down for 3 nights. Says he takes covers off and it subsides. Care Teams (unrecognized sec tion and content) Hand Button Splitter Relationship Specialty Start Date End Date Libertad Julio MD [address] [place] [address] PCP - General Family Practice 12/01/16 Hand Button Splitter Relationship Specialty Start Date End Date Libertad Julio MD [address] [facility] [place] [address] PCP - General [facility] Practice 12/01/16 Hand Button Splitter Relationship Specialty Start Date End Date Libertad Julio MD [address] [facility] [place] [address] PCP - General Family Practice 12/01/16 Hand Button Splitter Relationship Specialty Start Date End Date Libertad Julio MD [address] [facility] [place] [address] PCP - [facility] Practice 12/01/16 Hand Button Splitter Relationship Specialty Start Date End Date Libertad Julio MD [address] [facility] [place] [address] PCP - General Family Practice 12/01/16 Hand Button Splitter Relationship Specialty Start Date End Date Libertad Julio MD [address] [facility] [place] [address] PCP - General Family Medicine 12/01/16 (unrecognized sect ion and content) No Status Records Found INFORMATION SOURCE (unrecogn ized section and content) FOR RECORDS PERTAINING TO PATIENTS WHO ARE OR HAVE BEEN ENROLLED IN A CHEMICAL DEPENDENCY/SUBSTANCEABUSE PROGRAM, SOME INFORMATION MAY BE OMITTED. This clinical summary was aggregated from multiple sources. Caution should be exercised in using it in the provision of clinical care. This summary normalizes information from multiple sources, and as a consequence, information in this document may materially change the coding, format and clinical context of patient data. In addition, data may be omitted in some cases. CLINICAL DECISIONS SHOULD BE BASED ON THE PRIMARY CLINICAL RECORDS. [facility]. provides no warranty or guarantee of the accuracy or completeness of information in this document.
== END | disposition home or self-care (01) ==
PROVIDERS: PCP Family Medicine; Referring Provider Physician Assistant Medical; Visit Provider Physician Assistant Medical
DX: I48.19 Other persistent atrial fibrillation (principal); I25.5 Ischemic cardiomyopathy; E78.5 Hyperlipidemia, unspecified; Z95.1 Presence of aortocoronary bypass graft; Z95.810 Presence of automatic (implantable) cardiac defibrillator
CPT/HCPCS: 82274

== ENCOUNTER 2023-10-17 07:27 | Day surgery (SDC) | payer MEDICARE, SELFPAY ==
[2023-09-25 10:00] LABS: Bacteria 0 SEEN /hpf (None Seen); Mucous, Urine 0 SEEN /hpf (<or=2+)
--- NOTE | 2023-09-25 10:15 | RAD_ITS ---
INDICATION: SOB EXAMINATION/TECHNIQUE: X-RAY - XR Chest 2 Views COMPARISON: August 16, 2022 FINDINGS: LINES/DEVICES: Stable left-sided pacemaker and sternotomy wires LUNGS: No consolidation, edema or effusion. There are small granulomas.. No pneumothorax. MEDIASTINUM AND CARDIOVASCULAR STRUCTURES: Cardiac silhouette not enlarged. Central airways and mediastinal contour are unremarkable. BONES AND SOFT TISSUES: Degenerative vertebral changes RAD/Chest PA and Lateral IMPRESSION: No radiographic evidence of acute cardiopulmonary disease. Electronically Signed: Krishna Reed DO at 16:56 EST ,
[2023-09-25 10:22] LABS: Hematocrit 44.2 % (40-54); Hemoglobin 14.2 g/dL (13.0-16.5); Mean Corp Hgb Conc 32.1 g/dL (32-36); Mean Corpuscular Hgb 29.5 pg (27.0-32.0); Mean Corpuscular Volume 91.7 fL (80-94); Platelet Count 172 K/mm3 (150-450); RBC Distribution Width CV 13.2 % (11.6-14.6); RBC Distribution Width SD 44.3 fl (35.1-43.9); Red Blood Count 4.82 M/mm3 (4.6-6.2)
[2023-09-25 10:31] LABS: International Normalized Ratio 1.5; Prothrombin Time (Protime)PT. 17.8 SECONDS (11.7-14.9)
[2023-09-25 11:27] LABS: Color, Urine Yellow (Yellow); Glucose, Dipstick Normal (Normal); Ketone-Dipstick Negative (Negative); Leukocyte Esterase-Dipstick Negative /ul (Negative); Nitrite-Dipstick Negative (Negative); Occult Blood-Urine 10 /ul (Negative); Protein-Dipstick 15 mg/dl (Negative); Specific Gravity, Urine 1.015 (1.002-1.030); Urine Bilirubin Dipstick Negative (Negative); Urine Clarity Clear (Clear); Urine Urobilinogen Normal (Normal)
[2023-09-25 11:55] LABS: Red Blood Cells-Urine 0-5 SEEN /hpf (0-5); Squamous Epithelial Cells - UA 0-5 SEEN /hpf (0-5); White Blood Cells 0-5 SEEN /hpf (0-5)
[2023-09-25 12:26] LABS: Anion Gap 3 (5-15); BUN 35 mg/dL (7-18); BUN/Creat Ratio 20.7 RATIO (10-20); Calcium,Total 8.8 mg/dL (8.5-10.1); Chloride 112 mmol/L (98-107); Creatinine, Serum 1.69 mg/dL (0.70-1.30); EST Glomerular Filtration Rate 41 mL/min (>60); Est Glom Filt Rate - Afr Amer 50 mL/min (>60); Glucose 109 mg/dL (74-106); Potassium 4.6 mmol/L (3.5-5.1); Sodium Level 142 mmol/L (136-145)
[2023-10-16 08:19] VITALS: BMI 26.6
--- OUTSIDE RECORDS SUMMARY | 2023-10-17 07:49 | XMS RPT_ITS | CCD ---
Author Name Unknown Address [address] [place] [id number] Organization [facility] Care Team Providers Care Language Interpreter Name Role Phone JENNI Nino, Sabina David [...] Unavailab LIBERTAD Soni Primary Care Unavailab le ROMINA LOZANO Attending Unavailable LIBERTAD JULIO Primary Care Unavailab LIBERTAD Soni Referring Unavailab LIBERTAD Soni Primary Care Unavailab le PODLOGROMINA LE Referring Unavailable LIBERTAD JULIO Primary Care Unavailab le PODLOGARROMINA Referring Unavailable LIBERTAD JULIO Primary Care Unavailab le Medications Completed/Discontinued Medications Medication Drug Class(es) Dates Sig (Normalized) Sig (Original) acetaminophen 325 mg / oxyCODONE hydrochloride 5 mg oral tablet (20 sources) Opioid Agonist Start: 12-16-2010 End: 08-04-2011 PERCOCET 5-325 MG TABS As needed OXYCODONE-ACETAMINO PHEN [id number] Lynette Bose Problems Active Problems Problem Classification Problem Date Documented Da te Episodic/Chronic Cardiac dysrhythmias (20 sources) Paroxysmal atrial fibrillation; Translations: [Atrial flutter] Onset: 06-23-2015 06-23-2015 Chronic Chronic kidney disease (15 sources) Chronic kidney disease stage 3A ; [...] Onset: 11-22-2010 11-22-2010 Chronic Diverticulosis and diverticulitis (9 sources) Diverticulosis of colon; Translations: [Diverticulosis of large intestine without perforation or abscess without bleeding] Onset: 10-25-2010 10-25-2010 Chronic Essential hypertension (11 sources) Hypertensive disorder; Translations: [Essential (primary) hypertension] Onset: 10-31-2016 10-31-2016 Chronic Hypertension with complications and secondary hypertension (9 sources) Hypertensive renal disease; Translations: [Hypertensive chronic [...] Onset: 03-25-2016 03-25-2016 Chronic Transient cerebral ischemia (10 sources) Transient cerebral ischemia; Translations: [Transient cerebral ischemic attack, unspecified] Onset: 08-14-2017 03-19-2018 Chronic Unclassified (5 sources) Long-term drug therapy; Translations: [Other extermination inspector (current) drug therapy] Onset: 03-25-2016 03-25-2016 Past [...] bypass graft] Onset: 1 12-16-2010 Episodic Hemorrhoids (9 sources) Internal hemorrhoids; Translations: [Other hemorrhoids] Onset: 1 10-25-2010 Episodic Other aftercare (6 sources) Other shelter (current) drug therapy; Translations: [Other extermination inspector (current) drug therapy] Onset: 6 03-25-2016 Episodic [...] Resolved: 6 01-21-2014 Episodic Residual codes; unclassified (10 sources) Statin declined; Translations: [Procedure and treatment not carried out because of patient's decision for unspecified reasons] Onset: 0 09-26-2019 Episodic Results Test Name Value Interpretation Reference Range Facil ity Vital Signs Date Time Vital Sign Value Performing Clinician Faci lity 09-12-2022 15:23-0500 Body weight 80.74 kg Libertad Julio MD Work Phone: [facility] 09-12-2022 15:23-0500 Diastolic blood pressure 66 mm[Hg] Libertad Julio MD Work Phone: [facility] 09-12-2022 15:23-0500 Heart rate 61 /min Libertad Julio MD Work Phone: [facility] 09-12-2022 15:23-0500 Respiratory rate 16 /min Libertad Julio MD Work Phone: [facility] 09-12-2022 15:23-0500 SaO2% (BldA) [Mass fraction] 96 % Libertad Julio MD Work Phone: [facility] 09-12-2022 15:23-0500 Systolic blood pressure 114 mm[Hg] Libertad Julio MD Work Phone: [facility] 04-11-2022 08:26-0400 Body weight 81.28 kg Libertad Julio MD Work Phone: [facility] 04-11-2022 08:26-0400 Diastolic blood pressure 62 mm[Hg] Libertad Julio MD Work Phone: [facility] 04-11-2022 08:26-0400 Heart rate 55 /min Libertad Julio MD Work Phone: [facility] 04-11-2022 08:26-0400 Respiratory rate 16 /min Libertad Julio MD Work Phone: [facility] 04-11-2022 08:26-0400 SaO2% (BldA) [Mass fraction] 97 % Libertad Julio MD Work Phone: [facility] 04-11-2022 08:26-0400 Systolic blood pressure 106 mm[Hg] Libertad Julio MD Work Phone: [facility] 01-18-2022 08:21-0400 Body temperature 96.8 [degF] Romina Podlogar CATALYST OPERATOR CHIEF.HAIRSPRING TRUER Work Phone: [facility] 01-18-2022 08:21-0400 Body weight 78.83 kg Romina Podlogar CATALYST OPERATOR CHIEF.HAIRSPRING TRUER Work Phone: [facility] 01-18-2022 08:21-0400 Diastolic blood pressure 60 mm[Hg] Romina Podlogar CATALYST OPERATOR CHIEF.HAIRSPRING TRUER Work Phone: [facility] 01-18-2022 08:21-0400 Heart rate 67 /min Romina Podlogar CATALYST OPERATOR CHIEF.HAIRSPRING TRUER Work Phone: [facility] 01-18-2022 08:21-0400 Respiratory rate 20 /min Romina Podlogar CATALYST OPERATOR CHIEF.HAIRSPRING TRUER Work Phone: [facility] 01-18-2022 08:21-0400 SaO2% (BldA) [Mass fraction] 97 % Romina Podlogar CATALYST OPERATOR CHIEF.HAIRSPRING TRUER Work Phone: [facility] 01-18-2022 08:21-0400 Systolic blood pressure 92 mm[Hg] Romina Podlogar CATALYST OPERATOR CHIEF.HAIRSPRING TRUER Work Phone: [facility] 03-24-2017 13:24-0400 BMI (Body Mass Index) 22.77 kg/m2 [facility] Work Phone: 03-24-2017 13:24-0400 BP [...] (Body Mass Index) 21.9 kg/m2 JENNI [facility] Work Phone: 10-28-2016 10:23-0400 Body weight 75.3 kg JNENI [facility] Work Phone: 10-28-2016 10:23-0400 [...] Surface Area) 2.02 m2 Sabina Nino RN [facility] Work Phone: 06-23-2015 14:46-0500 Heart rate 59 /min Sabina Nino RN [facility] Work Phone: 05-17-2013 08:31-0400 Heart rate 410 ms Sabina Nino RN [facility] Work Phone: Encounters Encounter Date Encounter Type Care Provider Facility Start: 10-13-2023 Jimenez Julio MD Work Phone: [facility] [place] Procedures Date Procedure Procedure Detail Performing Clinician Start: 02-02-2022 Ct thorax w/o contra st material Romina Podlogar CATALYST OPERATOR CHIEF.HAIRSPRING TRUER Work Phone: Start: 01-18-2022 Urnls dip stick/tabl et rgnt auto w/o microscopy Romina Podlogar CATALYST OPERATOR CHIEF.HAIRSPRING TRUER Work Phone: Start: 07-13-2017 End: 07-13-2017 Prgrmg eval implantable in prsn dual lead dfb Ten Tineo MD Start: 04-12-2017 End: 04-12-2017 Prgrmg eval implantable in prsn dual lead abran Tineo MD Start: 04-12-2017 End: 04-12-2017 Icd device progr eval, dual Ten Peoples i, MD Start: 03-24-2017 End: 03-24-2017 CREAM RIPENER Wisam Waters [employer] Work Phone: Start: 03-24-2017 End: 03-24-2017 Follow Up Appt 6 months Wisam Waters [employer] Work Phone: Start: 03-24-2017 End: 03-24-2017 CREAM RIPENER Wisam Waters [employer] Work Phone: Start: 03-24-2017 End: 03-24-2017 Follow Up Appt 6 months Wisam Waters [employer] Work Phone: Start: 01-04-2017 End: 03-24-2017 Follow Up Appt 3 months Joann Laurent Start: 01-04-2017 End: 03-24-2017 Pacer Clinic Ten Tineo MD Start: 01-04-2017 End: 01-05-2017 Prgrmg eval implantable in prsn dual lead dfb eTn Tineo MD Start: 01-04-2017 End: 03-24-2017 Follow [...] months Joann Laurent Start: 10-28-2016 End: 10-28-2016 MMJoann Tineo MD Start: 09-22-2016 End: 02-16-2017 *BMP Ten Tineo MD Start: 09-22-2016 End: 02-16-2017 *CBC with Differential Ten Tineo MD Start: 09-22-2016 End: 03-24-2017 Follow Up Appt 3 months Joann Laurent Start: 09-22-2016 End: 09-22-2016 Follow Up Appt 6 months Joann Laurent Start: 09-22-2016 End: 02-16-2017 Magnesium [Mass/volume] in Serum or Plasma Ten Tineo MD Start: 09-22-2016 End: 09-22-2016 LEONARDO Tineo MD Start: 09-22-2016 End: 03-24-2017 Pacer [...] Ten Tineo MD Start: 09-22-2016 End: 09-22-2016 LEONARDO Tineo MD Start: 09-22-2016 End: 03-24-2017 Pacer [...] months Joann Laurent Start: 03-25-2016 End: 03-25-2016 [facility] Ten Tineo MD Start: 03-25-2016 End: 03-24-2017 [...] Peoples i, MD Start: 03-25-2016 End: 03-25-2016 MMJoann Tineo MD Start: 03-25-2016 End: 03-24-2017 Pacer [...] Ten Tineo MD Start: 09-07-2015 End: 09-07-2015 CREAM RIPENER Michell Rodriguez PA-C Work Phone: Start: 09-07-2015 [...] PA-C Work Phone: Start: 09-07-2015 End: 09-07-2015 CREAM RIPENER Michell Rodriguez PA-C Work Phone: Start: 09-07-2015 [...] 06-15-2015 Icd device progr eval, dual Michell Watson PA-C Work Phone: Start: 06-15-2015 End: 06-23-2015 Pac[facility] Clinic Michell Rodriguez PA-C Work Phone: Start: 03-03-2015 End: 03-04-2015 Documentation of current medications Ten Tineo MD Start: 03-03-2015 End: 06-23-2015 Follow Up Appt 3 months Joann Laurent Start: 03-03-2015 End: 03-03-2015 Follow Up Appt 6 months Joann Laurent Start: 03-03-2015 End: 03-03-2015 MMM Ten Tineo [...] Peoples i, MD Start: 03-03-2015 End: 03-03-2015 MM Ten Tineo [...] [AGGREGATE] Joann Laurent Start: 08-15-2014 End: 08-15-2014 CREAM RIPENER Michell Rodriguez PA-C Work Phone: Start: 08-15-2014 End: [...] 08-15-2014 Pacer Clinic Ten Tineo MD Start: 05-01-2014 End: 07-08-2014 Follow Up [...] PA-C Work Phone: Start: 05-17-2013 End: 05-17-2013 CREAM RIPENER Michell Rodriguez PA-C Work Phone: Start: 05-17-2013 [...] PA-C Work Phone: Start: 05-17-2013 End: 05-17-2013 CREAM RIPENER Michell Rodriguez PA-C Work Phone: Start: 05-17-2013 [...] dual lead umairb Ten Tineo MD Start: 04-29-2013 End: 05-09-2013 Follow Up Appt 3 months Joann Laurent Start: 04-29-2013 End: 04-29-2013 Icd device progr eval, dual Ten Peoples i, MD Start: 04-29-2013 End: 05-09-2013 Pacer Clinic Tne Tineo MD Start: 01-23-2013 End: 04-24-2013 Follow [...] [AGGREGATE] Joann Laurent Start: 10-30-2012 End: 10-30-2012 MMJoann Tineo MD Start: 10-25-2012 End: 10-30-2012 Follow [...] Detail Author Start: 03-19-2028 Urine microalbumin profile [facility] Start: 04-11-2025 DIABETES SCREEN DIABETES SCREEN [facility] Start: 04-11-2025 Diabetes Screening Diabetes Screenin g [facility] Start: 01-18-2025 DIABETES SCREEN DIABETES SCREEN [facility] Start: 10-11-2024 DIABETES SCREEN DIABETES SCREEN [facility] Start: 08-14-2023 Advance Directive Discussion Advance Directive Discussion [facility] Start: 08-14-2023 Depression Assessment Depression Ass essment [facility] Start: 04-14-2023 Influenza vaccination Influenza Vacc ine (#1) [facility] Start: 04-11-2023 COVID-19 VACCINE (#1) COVID-19 VACCI NE (#1) [facility] Immunizations Immunization Date Immunization Notes Care Provider Fa john 06-18-2020 zoster vaccine recombinant Romina Podlogar CATALYST OPERATOR CHIEF.HAIRSPRING TRUER Work Phone: [facility] 05-14-2020 influenza virus vaccine, unspecified formulation Libertad Julio MD Work Phone: [facility] 04-14-2020 zoster vaccine recombinant Romina Podlogar CATALYST OPERATOR CHIEF.HAIRSPRING TRUER Work Phone: [facility] 04-02-2020 pneumococcal polysaccharide vaccine, 23 valent Romina Podlogar CATALYST OPERATOR CHIEF.HAIRSPRING TRUER Work Phone: [facility] 08-20-2019 influenza, high dose seasonal, preservative-free Romina Podlogar CATALYST OPERATOR CHIEF.HAIRSPRING TRUER Work Phone: [facility] 07-25-2018 influenza, high dose seasonal, preservative-free Romina Podlogar CATALYST OPERATOR CHIEF.HAIRSPRING TRUER Work Phone: [facility] Work Phone: 07-20-2017 zoster vaccine, live Romina P odlogar CATALYST OPERATOR CHIEF.HAIRSPRING TRUER Work Phone: [facility] Work Phone: 05-31-2017 influenza, high dose seasonal, preservative-free Romina Podlogar CATALYST OPERATOR CHIEF.HAIRSPRING TRUER Work Phone: [facility] 05-31-2017 pneumococcal conjuga te vaccine, 13 valent Romina Podlogar CATALYST OPERATOR CHIEF.HAIRSPRING TRUER Work Phone: [facility] Payers Date Payer Category Payer Medicare HU[employer]NA MEDICARE HU[employer]NA MEDICARE PPO [id number] 2021-Present [phone] [address] [address] [place] [address] PPO [id number] 2021 Medicare HUMANA MEDICARE HU[employer]NA MEDICARE PPO [id number] 2021-Present [phone] [address] [address] [place] [address] PPO [id number] 2021 Medicare [id number] Social History Date Type Detail Facility Start: 04-11-2022 Tobacco smoking stat us [facility] Never smoked tobacco [facility] Start: 01-18-2022 End: 09-12-2022 Alcohol intake Current non-drinker of alcohol (finding) [facility] Start: 12-01-2016 End: 04-11-2022 Tobacco Comment Father smoked occasional cigar. 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 [facility] Start: 1935 Sex Assigned At Not on file [facility] Start: 12-20-2021 End: 04-11-2022 Exposure to SARS-CoV-2 (event) Not sure [facility] Start: 04-11-2022 Tobacco use and exposure Smoke less tobacco non-user [facility] Start: 09-09-2022 End: 09-12-2022 History of Social function [facility] Start: 09-09-2022 End: 09-12-2022 Tobacco use panel [facility] Adult Depression Screening Assessment 0 [facility] Clinical Notes 10-19-2010 to 10-16-2023 Telephone Encounter - Caterina Hampton Ma - 10/16/2023 12:10 PM ESTTelephone Encounter - Romina Lozano APRN.CNP - 10/16/2023 11:46 AM Shona Julio MD - 09/12/2022 3:37 PM EST Note Date & Type Note Facility 10-16-2023 Miscellaneous Notes Pt notified. Appt made. Caterina Hampton Ma Patient is due for office appointment. Please assist in scheduling Romina Lozano APRN.CNP Pharmacy verified in Epic Patient has been identified by name and date of : Yes Patient aware RX will be sent to pharmacy. No need to notify patient. Patient phones for refill(s): Requested Prescriptions Pending Prescriptions Disp Refills carvedilol (COREG) 6.25 mg tablet 180 tablet 2 Sig: Take 1 tablet by mouth two times a day with meals. Date of last office visit : 09/12/2022 Date of next office visit : Visit date not found Last 2 Encounter Wt Readings: Date: Wt: 09/12/2022 80.7 kg (178 lb) 04/11/2022 81.3 kg (179 lb 3.2 oz) Not applicable Please advise. Mala Haddad Pss documented in this encounter [facility] 09-12-2022 Note HNO ID: [id number] Author: Libertad Julio MD Service: ? Author Type: Physician Type: Progress Notes Filed: 09/13/2022 10:53 AM Note Text: Chief Complaint Patient presents with: Pain: Both legs experiencing burning from knees down for 3 nights. Says he takes covers off and it subsides. HPI Silas Koehler is a 87 year old male [...] hernia with GERD 12/2016 UGI 01/10/17 at [facility] Hyperlipidemia Hypertension Inguinal hernia, bilateral Ischemic cardiomyopathy [...] 0.25 MG TABLET MD Libertad Ayala MD [facility] 09-12-2022 History of Presen t illness Narrative Chief Complaint Patient presents with: Pain: Both legs experiencing burning from knees down for 3 nights. Says he takes covers off and it subsides. HPI Silas Koehler is a 87 year old male [...] hernia with GERD 12/2016 UGI 01/10/17 at [facility] Hyperlipidemia Hypertension Inguinal hernia, bilateral Ischemic cardiomyopathy [...] Libertad Ayala MD documented in this encounter [facility] 04-11-2022 Note HNO ID: [id number] Author: Libertad Julio MD Service: ? Author Type: Physician Type: Progress Notes Filed: 04/11/2022 9:09 AM Note Text: Chief Complaint Patient presents with: Follow Up: 6 month HPI Silas Koehler is a 87 year old male [...] hernia with GERD 12/2016 UGI 01/10/17 at [facility] Hyperlipidemia Hypertension Inguinal hernia, bilateral Ischemic cardiomyopathy [...] Abs Lymph 1.00 - 4.00 k/uL 2.50 Ravalli% % 11.7 Abs Ravalli <0.87 k/uL 0.77 Eosin% % 1.7 Abs Eosin <0.46 k/uL 0.11 Baso% % 1.2 Abs Baso <0.11 k/uL 0.08 Immature Gran % % 0.2 (more content not included)... [facility] 04-11-2022 History of Presen t illness Narrative Chief Complaint Patient presents with: Follow Up: 6 month HPI Silas Koehler is a 87 year old male [...] hernia with GERD 12/2016 UGI 01/10/17 at [facility] Hyperlipidemia Hypertension Inguinal hernia, bilateral Ischemic cardiomyopathy [...] Abs Lymph 1.00 - 4.00 k/uL 2.50 Ravalli% % 11.7 Abs Ravalli <0.87 k/uL 0.77 Eosin% % 1.7 Abs [...] 31.7 ASSESSMENT/PLAN: 1. Coronary artery disease involving lower [place] heart without angina pectoris, unspecified vessel or [...] Libertad Julio MD documented in this encounter [facility] 02-03-2022 Miscellaneous Notes Patient returned call and [...] at this time. documented in this encounter [facility] 02-02-2022 Note HNO ID: [id number] Author: RT Kuldip(Malcom) Service: ? Author Type: Harp Maker Type: Progress Notes Filed: 02/02/2022 1:38 PM Note Text: Radiology Service Progress Note PATIENT NAME: Silas Koehler DATE OF SERVICE: February 02, 2022 [...] RT Haritha(R) February 02, 2022 1:38 PM [facility] 02-02-2022 History of Presen t illness Narrative Radiology Service Progress Note PATIENT NAME: Silas Koehler DATE OF SERVICE: February 02, 2022 [...] IV DATA: Not applicable SIGNED BY: RT Haritha(Malcom) February 02, 2022 1:38 PM documented in this encounter [facility] 01-18-2022 Note HNO ID: [id number] Author: RT Angelica(Malcom) Service: Radiology Author Type: Technologist Type: Progress Notes Filed: 01/18/2022 8:56 AM Note Text: Radiology Service Progress Note PATIENT NAME: Silas Koehler DATE OF SERVICE: January 18, 2022 [...] RT Angelica(R) January 18, 2022 8:47 AM [facility] 01-18-2022 Note HNO ID: [id number] Author: Romina Lozano APRN.HAIRSPRING TRUER Service: ? 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 PAST MEDICAL HISTORY Diagnosis Date - Anemia of chronic disease - Atrial flutter (HCC) - CAD (coronary artery disease) 2010 CABG x3, Seeing Dr. Tineo - CKD (chronic kidney disease), stage III ([facility]) - Hiatal hernia with GERD 12/2016 UGI 01/10/17 at [facility] - Hyperlipidemia - Hypertension - Inguinal hernia, bilateral - Ischemic cardiomyopathy 06/2021 - Pacemaker - Perforated bowel (HCC) 06/2021 - Pneumonia - Presence of combination internal cardiac defibrillator (ICD) and pacemaker 2010 - Refusal of statin medication by patient - TIA (transient ischemic attack) 2017 ALLERGIES Patient has no known allergies. MEDICATIONS [...] CHEST 2V FRONTAL/LAT - follow-up pending testing Romina Riveralogmonique, CATALYST OPERATOR CHIEF.HAIRSPRING TRUER Prescription instructions reviewed with patient as applicable. Patient advised if symptoms do not improve or if symptoms worsen sooner, to contact their primary care physician. Potential red flag symptoms discussed with the patient. Reviewed appropriate action plan to take if red flag symptoms occur. Patient agreeable to treatment plan. 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 PAST MEDICAL HISTORY Diagnosis Date Anemia of chronic disease Atrial flutter (HCC) CAD (coronary artery disease) 2010 CABG x3, Seeing Dr. Tineo CKD (chronic kidney disease), stage III (HCC) Hiatal hernia with GERD 12/2016 UGI 01/10/17 at [facility] Hyperlipidemia Hypertension Inguinal hernia, bilateral Ischemic cardiomyopathy 06/2021 Pacemaker Perforated bowel (HCC) 06/2021 Pneumonia Presence of combination internal cardiac defibrillator (ICD) and pacemaker 2010 Refusal of statin medication by patient TIA (transient ischemic attack) 2017 ALLERGIES Patient has no known allergies. MEDICATIONS [...] CHEST 2V FRONTAL/LAT - follow-up pending testing Romina Lozano APRN.CNP Prescription instructions reviewed with patient as applicable. Patient advised if symptoms do not improve or if symptoms worsen sooner, to contact their primary care physician. Potential red flag symptoms discussed with the patient. Reviewed appropriate action plan to take if red flag symptoms occur. Patient agreeable to treatment plan. documented in this encounter [facility] 01-18-2022 Miscellaneous Notes Reviewed. Romina Lozano APRN.CNP Triaged patient for complaint of [...] No travel history Protocols used: COUGHING UP [id number] documented in this encounter [facility] 01-17-2022 Miscellaneous Notes Can we please triage this man for complaints of spitting up blood. Is he coughing it up or vomiting it up? Thanks, Romina Lozano APRN.HAIRSPRING TRUER documented in this encounter [facility] 10-15-2021 Miscellaneous Notes Reviewed. Patient called and [...] if patient agreeable. documented in this encounter [facility] 10-11-2021 Note HNO ID: [id number] Author: Libertad Julio MD Service: ? Author Type: Physician Type: Progress Notes Filed: 10/12/2021 9:05 AM Note Text: Chief Complaint Patient presents with: F/U 6 months HPI Silas Koehler is a 86 year old male [...] hernia with GERD 12/2016 UGI 01/10/17 at [facility] - Hyperlipidemia - Hypertension - Inguinal hernia, [...] Abs Lymph 1.00 - 4.00 k/uL 2.48 Ravalli% % 8.9 Abs Ravalli <0.87 k/uL 1.17 (H) Eos (more content not included)... [facility] documented as of this encounter (statuses as of 01/18/2022) [address]08-2011 History of Past illness Narrative* Problem Noted Date Resolved Date Rectal bleeding 10/19/2010 09/15/2017 Pneumonia 10/31/2016 documented as of this encounter (statuses as of 01/19/2022) [address]08-[address] History of Past illness Narrative* Problem Noted Date Resolved Date Rectal bleeding 10/19/2010 09/15/2017 Pneumonia 10/31/2016 documented as of this encounter (statuses as of 02/03/2022) [facility] History of Past illness Narrative* Problem Noted Date Resolved Date Rectal bleeding 10/19/2010 09/15/2017 Pneumonia 10/31/2016 documented as of this encounter (statuses as of 02/03/2022) [facility] History of Past illness Narrative* Problem Noted Date Resolved Date Rectal bleeding 10/19/2010 09/15/2017 Pneumonia 10/31/2016 documented as of this encounter (statuses as of 03/02/2022) [facility] History of Past illness Narrative* Problem Noted Date Resolved Date Rectal bleeding 10/19/2010 09/15/2017 Pneumonia 10/31/2016 documented as of this encounter (statuses as of 03/04/2022) [facility] History of Past illness Narrative* Problem Noted Date Resolved Date Rectal bleeding 10/19/2010 09/15/2017 Pneumonia 10/31/2016 documented as of this encounter (statuses as of 04/11/2022) [facility] History of Past illness Narrative* Problem Noted Date Resolved Date Rectal bleeding 10/19/2010 09/15/2017 Pneumonia 10/31/2016 documented as of this encounter (statuses as of 09/13/2022) [address]08-[address] History of Past illness Narrative* Problem Noted Date Diagnosed Date Resolved Date Rectal bleeding 10/19/2010 09/15/2017 Pneumonia 10/31/2016 documented as of this encounter (statuses as of 10/16/2023) [facility] Diagnosis Spitting up blood- Primary Hemoptysis, unspecified [facility] Diagnosis Hemoptysis Hemoptysis, unspecified [facility] Diagnosis Stage 3b chronic kidney disease (HCC)- Primary documented in this encounter [facility] note* Diagnosis Coronary artery disease involving [place] heart without angina pectoris, unspecified vessel or [...] of patient's decision [facility] Diagnosis Leg pain, bilateral- Primary Pain in limb Atrial flutter, unspecified type (HCC) Chronic kidney disease, stage 3b (HCC) documented in this encounter [facility] Reason for Referral Specialty Diagnoses / Procedures Referred By Bertha [email or web address] Referred To Contact CT IMAGING Diagnoses Hemoptysis Procedures CT CHEST WO IVCON DIAGNOSTIC COMPUTED TOMOGRAPHY THORAX W/O CNTRST MiguellogRomina le APRN.HAIRSPRING TRUER [address] [place] [address] Ct Imaging Referral ID Status Reason Start Date Expiration Date V isits Requested Visits Authorized [id number] Closed Auto-Generate d Referral 02/02/2022 03/04/2022 1 [...] or prosecute any alcohol or drug abuse patient.[facility] information is protected by the Federal Confidentiality of Alcohol and Drug Abuse Patient Records regulations: The Federal rules restrict any use of the information to criminally investigate or prosecute any alcohol or drug abuse patient.[facility] the event this information is protected by the Federal Confidentiality of Alcohol and Drug Abuse Patient Records regulations: The Federal rules restrict any use of the information to criminally investigate or prosecute any alcohol or drug abuse patient.[facility] the event this information is protected by the Federal Confidentiality of Alcohol and Drug Abuse Patient Records regulations: The Federal rules restrict any use of the information to criminally investigate or prosecute any alcohol or drug abuse patient.[facility] the event this information is protected by the Federal Confidentiality of Alcohol and Drug Abuse Patient Records regulations: The Federal rules restrict any use of the information to criminally investigate or prosecute any alcohol or drug abuse patient.[facility] the event this information is protected by the Federal Confidentiality of Alcohol and Drug Abuse Patient Records regulations: The Federal rules restrict any use of the information to criminally investigate or prosecute any alcohol or drug abuse patient.[facility] the event this information is protected by the Federal Confidentiality of Alcohol and Drug Abuse Patient Records regulations: The Federal rules restrict any use of the information to criminally investigate or prosecute any alcohol or drug abuse patient.[facility] the event this information is protected by the Federal Confidentiality of Alcohol and Drug Abuse Patient Records regulations: The Federal rules restrict any use of the information to criminally investigate or prosecute any alcohol or drug abuse patient.[facility] the event this information is protected by the Federal Confidentiality of Alcohol and Drug Abuse Patient Records regulations: The Federal rules restrict any use of the information to criminally investigate or prosecute any alcohol or drug abuse patient.[facility] Reason for Visit (unrecogniz ed section and content) Reason Comments Coughing Up Blood Reason Comments Radiology CT Specialty Diagnoses / Procedures Referred By Bertha t Referred To Contact CT IMAGING Diagnoses Hemoptysis Procedures CT CHEST WO IVCON DIAGNOSTIC COMPUTED TOMOGRAPHY THORAX W/O CNTRST MiguellogRomina le APRN.[employer] [address] [place] [address] Ct Imaging Referral ID Status Reason Start Date Expiration Date V isits Requested Visits Authorized [id number] Closed Auto-Generate d Referral 02/02/2022 03/04/2022 1 1 Reason Comments Results Reason Comments Returning Patient's Call Reason Comments Follow Up 6 month Reason Comments Pain Both legs experienci ng burning from knees down for 3 nights. Says he takes covers off and it subsides. Reason Onset Date Comments Refill Request 10/13/2023 Refill Request 10/16/2023 Care Teams (unrecognized sec tion and content) Language Interpreter Relationship Specialty Start Date End Date Libertad Julio MD [address] [place] [address] PCP - General Family Practice 12/01/16 Language Interpreter Relationship Specialty Start Date End Date Libertad Julio MD [address] [place] [address] PCP - General Family Practice 12/01/16 Language Interpreter Relationship Specialty Start Date End Date Libertad Julio MD [address] [place] [address] PCP - General Family Practice 12/01/16 Language Interpreter Relationship Specialty Start Date End Date Libertad Julio MD [address] [place] [address] PCP - General Family Practice 12/01/16 Language Interpreter Relationship Specialty Start Date End Date Libertad Julio MD [address] [place] [address] PCP - General Family Practice 12/01/16 Language Interpreter Relationship Specialty Start Date End Date Libertad Julio MD [address] [facility] MD [id number] PCP - General Family Medicine 12/01/16 Language Interpreter Relationship Specialty Start Date End Date Libertad Julio MD [address] [facility] MD [id number] PCP - General Family Medicine 12/01/16 (unrecognized [...] BE BASED ON THE PRIMARY CLINICAL RECORDS. [employer] [facility]. provides no warranty or guarantee of the accuracy or completeness of information in this document.
--- NOTE | 2023-10-17 10:45 | EX.DEFIBPR_ITS ---
Defibrillator Procedure Note Defibrillator Procedure Note Silas Koehler is a 88 year old male who has a past medical history of an ischemic cardiomyopathy, CAD s/p CABG, long standing persistent AF/AFL, primary prevention dual chamber ICD who presented to the [place] EP lab for further evaluation regarding an ICD generator changeout The patient was brought to the electrophysiology laboratory in a fasting state. Sedation provided by the nursing staff. The left shoulder area was prepped and draped in the usual manner and the skin and subcutaneous tissues below the left clavicle were infiltrated with 1% lidocaine for local anesthesia. The skin was sharply incised. Electrocautery and blunt dissection were carried out to the existing pulse generator. The current generator was removed from the pocket. The leads were removed from the device. A new pulse generator was attached to the current leads. The device was noted to function appropriately. The pocket was noted to have an absence of active bleeding. The pulse generator was placed in the pocket and sutured to the pre-pectoral fascia. The pocket was then irrigated with antibiotic solution. The incision was closed with two layers of 3-0 Vicryl and a subcuticular closure of 4-0 Vicryl. The incision was dressed and pressure was applied. Conclusions Successful ICD generator changeout with adequate pacing threshold, sensing and lead impedance. Recommendations 1. Routine follow-up in the device clinic 2. Remove outer dressing after 48 hours. Leave steri-strips intact for 7-10 days, then remove if it does not fall off by itself. 3. Device follow up as scheduled. 4. Hold anticoagulation for 24 hours (No heparin IV or NOAC, ok to continue warfarin). 5. The patient can continue to follow-up Dr. Tineo.
== END 2023-10-17 12:05 | disposition home or self-care (01) ==
LOC: CLSP 07:28
PROVIDERS: Internal Medicine Cardiovascular Disease; PCP Family Medicine; Referring Provider Internal Medicine; Visit Provider Internal Medicine
DX: Z45.02 Encounter for adjustment and management of automatic implantable cardiac defibrillator (principal); I48.19 Other persistent atrial fibrillation; N18.30 Chronic kidney disease, stage 3 unspecified; I12.9 Hypertensive chronic kidney disease with stage 1 through stage 4 chronic kidney disease, or unspecified chronic kidney disease; I25.5 Ischemic cardiomyopathy; I25.10 Atherosclerotic heart disease of native coronary artery without angina pectoris; E78.00 Pure hypercholesterolemia, unspecified; Z95.1 Presence of aortocoronary bypass graft; Z95.810 Presence of automatic (implantable) cardiac defibrillator; Z79.01 Long term (current) use of anticoagulants; Z79.899 Other long term (current) drug therapy; Z86.73 Personal history of transient ischemic attack (TIA), and cerebral infarction without residual deficits; Z82.49 Family history of ischemic heart disease and other diseases of the circulatory system
CPT/HCPCS: 33263; 36415; 71046; 80048; 81001; 85027; 85610; 93641; 99152; 99153; J7040; J7050

== ENCOUNTER → 2023-10-26 | Outpatient (CLI) | payer MEDICARE, SELFPAY ==
--- NOTE | 2023-10-26 07:27 | ECHOD_ITS ---
Reason For Study: SOB Procedure This was a 2D Doppler, Color Flow transthoracic echocardiogram. Exam performed in department. Left Ventricle Mildly dilated left ventricle. The left ventricular ejection fraction is 25 %. Severe segmental systolic dysfunction (see wall motion). Septal [place] : Akinetic. Mid-anteroseptal : Akinetic. The rest of the wall segments are hypokinetic. Right Ventricle Normal RV size. ICD or pacer leads identified within the right ventricle. Normal systolic function. Atria The left atrium is moderately enlarged. The right atrium is mildly enlarged. Mitral Valve Mild (1+) mitral valve insufficiency. Tricuspid Valve Normal tricuspid valve. Mild to moderate (1-2+) tricuspid valve insufficiency. Pulmonary artery systolic pressure is 40 mmHg. Aortic Valve Trisinus/trileaflet aortic valve. Mild (1+) aortic valve insufficiency. Pulmonic Valve Normal pulmonic valve. Great Vessels Calcified aortic root. The pulmonary artery is normal size. Inferior vena cava collapse with respiration. Pericardium/Pleural No pericardial effusion. MMode/2D Measurements & Calculations LVIDd: 5.8 cm IVSd: 1.7 cm LVOT diam: 2.5 cm LVIDs: 4.8 cm LVPWd: 0.59 cm LVOT area: 4.7 cm2 RVDd: 4.0 cm FS: 17.6 % Ao root diam: 3.9 cm LAV(MOD-bp): 118.6 ml LVAd ap4: 33.4 cm2 LAV(MOD-bp) Indexed: 58.8 ml/m2 LVLd ap4: 8.0 cm LAV(MOD-sp2): 107.6 ml EDV(MOD-sp4): 117.3 ml LAV(MOD-sp4): 120.4 ml EDV(sp4-el): 117.9 ml LVAs ap4: 25.4 cm2 LVLs ap4: 7.4 cm ESV(MOD-sp4): 76.5 ml ESV(sp4-el): 73.8 ml EF(MOD-sp4): 34.8 % EF(sp4-el): 37.4 % LVAd ap2: 31.7 cm2 SV(MOD-sp4): 40.8 ml SV(MOD-sp2): 25.7 ml LVLd ap2: 7.6 cm EDV(MOD-sp2): 112.8 ml EDV(sp2-el): 112.3 ml LVAs ap2: 27.5 cm2 LVLs ap2: 7.4 cm ESV(MOD-sp2): 87.1 ml ESV(sp2-el): 86.5 ml EF(MOD-sp2): 22.8 % SV(sp4-el): 44.1 ml LA dimension(2D): 4.8 cm LA A4 area: 33.5 cm2 RA A4 area: 22.9 cm2 Doppler Measurements & Calculations MV E max roxanne: 79.6 cm/sec Ao V2 max: 128.4 cm/sec AI max roxanne: 358.7 cm/sec Ao max P.6 mmHg AI max P.5 mmHg Ao V2 mean: 94.0 cm/sec Ao mean P.0 mmHg AI dec slope: 133.5 cm/sec2 Ao V2 VTI: 25.7 cm AI P1/2t: 787.0 msec AV (velocity ratio): 0.69 CAROLYN(I,D): 3.3 cm2 CAROLYN(V,D): 3.6 cm2 LV V1 max: 97.4 cm/sec SV(LVOT): 84.4 ml PA V2 max: 69.4 cm/sec LV V1 max P.8 mmHg LV V1 mean P.4 mmHg LV V1 mean: 73.1 cm/sec LV V1 VTI: 17.8 cm TR max roxanne: 298.9 cm/sec TR max P.7 mmHg ECHO/Echo Complete Interpretation Summary The left ventricular ejection fraction is 25 %. Mildly dilated left ventricle. Severe segmental systolic dysfunction (see wall motion). Pulmonary artery systolic pressure is 40 mmHg. The left atrium is moderately enlarged. Compared to previous study, the left ventricular systolic function has worsened .. Ordering Physician: Michell Rodriguez Referring Physician: Lee Julio Performed By: Alayna Ahn RDCS
--- OUTSIDE RECORDS SUMMARY | 2023-10-26 07:33 | XMS RPT_ITS | CCD ---
Author Name Unknown Address [address] [place] [address] Organization [facility] Care Team Providers Care Needle Felt Making Machine Operator Name Role Phone JENNI Nino, Sabina David [...] Unavailab le ROMINA LOZANO Attending Unavailable LIBERTAD UJLIO Primary Care Unavailab LIBERTAD Soni Referring Unavailab [...] 5-325 MG TABS As needed OXYCODONE-ACETAMINO PHEN [id number] Lynette Bose Problems Active Problems Problem Classification [...] (5 sources) Long-term drug therapy; Translations: [Other bed bug exterminator (current) drug therapy] Onset: 03-25-2016 03-25-2016 Past [...] 10-25-2010 Episodic Other aftercare (6 sources) Other bed bug exterminator (current) drug therapy; Translations: [Other snf (current) drug therapy] Onset: 6 03-25-2016 Episodic [...] 80.74 kg Libertad Julio MD Work Phone: [facility] 09-12-2022 15:23-0500 Diastolic blood pressure 66 mm[Hg] Libertad Julio MD Work Phone: [facility] 09-12-2022 15:23-0500 Heart rate 61 /min Libertad Julio MD Work Phone: [facility] 09-12-2022 15:23-0500 Respiratory rate 16 /min Libertad Julio MD Work Phone: [facility] 09-12-2022 15:23-0500 SaO2% (BldA) [Mass fraction] 96 % Libertad Julio MD Work Phone: [facility] 09-12-2022 15:23-0500 Systolic blood pressure 114 mm[Hg] Libertad Julio MD Work Phone: [facility] 04-11-2022 08:26-0400 Body weight 81.28 kg Libertad Julio MD Work Phone: [facility] 04-11-2022 08:26-0400 Diastolic blood pressure 62 mm[Hg] Libertad Julio MD Work Phone: [facility] 04-11-2022 08:26-0400 Heart rate 55 /min Libertad Julio MD Work Phone: [facility] 04-11-2022 08:26-0400 Respiratory rate 16 /min Libertad Julio MD Work Phone: [facility] 04-11-2022 08:26-0400 SaO2% (BldA) [Mass fraction] 97 % Libertad Julio MD Work Phone: [facility] 04-11-2022 08:26-0400 Systolic blood pressure 106 mm[Hg] Libertad Julio MD Work Phone: [facility] 01-18-2022 08:21-0400 Body temperature 96.8 [degF] Romina Podlogar INDUSTRIAL DESIGN INTERN.RN MANAGED CARE Work Phone: [facility] 01-18-2022 08:21-0400 Body weight 78.83 kg Romina Podlogar INDUSTRIAL DESIGN INTERN.RN MANAGED CARE Work Phone: [facility] 01-18-2022 08:21-0400 Diastolic blood pressure 60 mm[Hg] Romina Podlogar INDUSTRIAL DESIGN INTERN.RN MANAGED CARE Work Phone: [facility] 01-18-2022 08:21-0400 Heart rate 67 /min Romina Podlogar INDUSTRIAL DESIGN INTERN.RN MANAGED CARE Work Phone: [facility] 01-18-2022 08:21-0400 Respiratory rate 20 /min Romina Podlogar INDUSTRIAL DESIGN INTERN.RN MANAGED CARE Work Phone: [facility] 01-18-2022 08:21-0400 SaO2% (BldA) [Mass fraction] 97 % Romina Podlogar INDUSTRIAL DESIGN INTERN.RN MANAGED CARE Work Phone: [facility] 01-18-2022 08:21-0400 Systolic blood pressure 92 mm[Hg] Romina Podlogar INDUSTRIAL DESIGN INTERN.RN MANAGED CARE Work Phone: [facility] 03-24-2017 13:24-0400 BMI (Body Mass Index) [...] Surface Area) 2.02 m2 Sabina Nino RN [facility] Work Phone: 06-23-2015 14:46-0500 Heart rate 59 /min Sabina Nino RN [facility] Work Phone: 05-17-2013 08:31-0400 Heart rate 410 ms Sabina Nino RN [facility] Work Phone: Encounters Encounter Date Encounter Type Care Provider Facility Start: 10-13-2023 Jimenez Julio MD Work Phone: [facility] [place] Procedures Date Procedure Procedure Detail Performing Clinician Start: 02-02-2022 Ct thorax w/o contra st material Romina Podlogar INDUSTRIAL DESIGN INTERN.RN MANAGED CARE Work Phone: Start: 01-18-2022 Urnls dip stick/tabl et rgnt auto w/o microscopy Romina Podlogar INDUSTRIAL DESIGN INTERN.RN MANAGED CARE Work Phone: Start: 07-13-2017 End: 07-13-2017 Prgrmg eval implantable in prsn dual lead dfb Ten Tineo MD Start: 04-12-2017 End: 04-12-2017 Prgrmg eval implantable in prsn dual lead abran Tineo MD Start: 04-12-2017 End: 04-12-2017 Icd device progr eval, dual Ten Peoples i, MD Start: 03-24-2017 End: 03-24-2017 CRANE FOLLOWER Wisam Waters EXPERIMENTAL MECHANIC ELECTRICAL Work Phone: Start: 03-24-2017 End: 03-24-2017 Follow Up Appt 6 months Wisam Waters EXPERIMENTAL MECHANIC ELECTRICAL Work Phone: Start: 03-24-2017 End: 03-24-2017 CRANE FOLLOWER Wisam Waters EXPERIMENTAL MECHANIC ELECTRICAL Work Phone: Start: 03-24-2017 End: 03-24-2017 Follow Up Appt 6 months Wisam Waters EXPERIMENTAL MECHANIC ELECTRICAL Work Phone: Start: 01-04-2017 End: 03-24-2017 Follow [...] months Joann Laurent Start: 03-25-2016 End: 03-25-2016 [facility] Ten Tineo MD Start: 03-25-2016 End: 03-24-2017 [...] 03-24-2017 Follow Up Appt 3 months Joann Laurnet Start: 12-09-2015 End: 03-24-2017 [facility] Ten Tineo MD Start: 12-09-2015 End: 12-09-2015 Prgrmg eval implantable in prsn dual lead dfb Ten Tineo MD Start: 12-09-2015 End: 03-24-2017 Follow Up Appt 3 months Joann Laurent Start: 12-09-2015 End: 12-09-2015 Icd device progr eval, dual Ten Peoples i, MD Start: 12-09-2015 End: 03-24-2017 [facility] Ten Tineo MD Start: 09-07-2015 End: 09-07-2015 CRANE [employer]OWER Michell Rodriguez PA-C Work Phone: Start: 09-07-2015 [...] PA-C Work Phone: Start: 09-07-2015 End: 09-07-2015 CRANE FOLLOWER Michell Rodriguez PA-C Work Phone: Start: 09-07-2015 [...] [AGGREGATE] Joann Laurent Start: 08-15-2014 End: 08-15-2014 CRANE FOLLOWER Michell Rodriguez PA-C Work Phone: Start: 08-15-2014 [...] eval implantable in prsn dual lead dfb Tne Tineo MD Start: 01-29-2014 End: 07-08-2014 Follow [...] PA-C Work Phone: Start: 05-17-2013 End: 05-17-2013 CRANE FOLLOWER Michell Rodriguez PA-C Work Phone: Start: 05-17-2013 [...] PA-C Work Phone: Start: 05-17-2013 End: 05-17-2013 CRANE FOLLOWER Michell Rodriguez PA-C Work Phone: Start: 05-17-2013 [...] Prgrmg eval implantable in prsn dual lead muairb Ten Tineo MD Start: 04-29-2013 End: 05-09-2013 [...] Detail Author Start: 03-19-2028 Urine microalbumin profile [facility] Start: 04-11-2025 DIABETES SCREEN DIABETES SCREEN [facility] Start: 04-11-2025 Diabetes Screening Diabetes Screenin g [facility] Start: 01-18-2025 DIABETES SCREEN DIABETES SCREEN [facility] Start: 10-11-2024 DIABETES SCREEN DIABETES SCREEN [facility] Start: 08-14-2023 Advance Directive Discussion Advance Directive Discussion [facility] Start: 08-14-2023 Depression Assessment Depression Ass essment [facility] Start: 04-14-2023 Influenza vaccination Influenza Vacc ine (#1) [facility] Start: 04-11-2023 COVID-19 VACCINE (#1) COVID-19 VACCI NE (#1) [facility] Immunizations Immunization Date Immunization Notes Care Provider Fa john 06-18-2020 zoster vaccine recombinant Romina Podlogar INDUSTRIAL DESIGN INTERN.RN MANAGED CARE Work Phone: [facility] 05-14-2020 influenza virus vaccine, unspecified formulation Libertad Julio MD Work Phone: [facility] 04-14-2020 zoster vaccine recombinant Romina Podlogar INDUSTRIAL DESIGN INTERN.RN MANAGED CARE Work Phone: [facility] 04-02-2020 pneumococcal polysaccharide vaccine, 23 valent Romina Podlogar INDUSTRIAL DESIGN INTERN.RN MANAGED CARE Work Phone: [facility] 08-20-2019 influenza, high dose seasonal, preservative-free Romina Podlogar INDUSTRIAL DESIGN INTERN.RN MANAGED CARE Work Phone: [facility] 07-25-2018 influenza, high dose seasonal, preservative-free Romina Podlogar INDUSTRIAL DESIGN INTERN.RN MANAGED CARE Work Phone: [facility] Work Phone: 07-20-2017 zoster vaccine, live Romina P odlogar INDUSTRIAL DESIGN INTERN.RN MANAGED CARE Work Phone: [facility] Work Phone: 05-31-2017 influenza, high dose seasonal, preservative-free Romina Podlogar INDUSTRIAL DESIGN INTERN.RN MANAGED CARE Work Phone: [facility] 05-31-2017 pneumococcal conjuga te vaccine, 13 valent Romina Podlogar INDUSTRIAL DESIGN INTERN.RN MANAGED CARE Work Phone: [facility] Payers Date Payer Category Payer Medicare HU[employer] MEDICARE HU[employer] MEDICARE PPO [id number] 2021-Present [phone] [address] [address] [place] [address] PPO [id number] 2021 Medicare HUMANA MEDICARE HU[employer]NA MEDICARE PPO [id number] 2021-Present [phone] [address] [address] [place] [address] PPO [id number] 2021 Medicare [id number] Social History Date Type Detail Facility Start: 04-11-2022 Tobacco smoking stat us [facility] Never smoked tobacco [facility] Start: 01-18-2022 End: 09-12-2022 Alcohol intake Current non-drinker of alcohol (finding) [facility] Start: 12-01-2016 End: 04-11-2022 Tobacco Comment Father smoked occasional cigar. 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 [facility] Start: 1935 Sex Assigned At Not on file [facility] Start: 12-20-2021 End: 04-11-2022 Exposure to SARS-CoV-2 (event) Not sure [facility] Start: 04-11-2022 Tobacco use and exposure Smoke less tobacco non-user [facility] Start: 09-09-2022 End: 09-12-2022 History of Social function [facility] Start: 09-09-2022 End: 09-12-2022 Tobacco use panel [facility] Adult Depression Screening Assessment 0 [facility] Clinical Notes 10-19-2010 to 10-16-2023 Telephone [...] Mala Haddad Pss documented in this encounter [facility] 09-12-2022 Note HNO ID: [id number] Author: Libertad Julio MD Service: ? Author [...] hernia with GERD 12/2016 UGI 01/10/[address] [facility] Hyperlipidemia Hypertension Inguinal hernia, bilateral Ischemic cardiomyopathy [...] 0.25 MG TABLET MD Libertad Ayala MD [facility] 09-12-2022 History of Presen t illness Narrative [...] hernia with GERD 12/2016 UGI 01/10/[address] [facility] Hyperlipidemia Hypertension Inguinal hernia, bilateral Ischemic cardiomyopathy [...] Libertad Ayala MD documented in this encounter [facility] 04-11-2022 Note HNO ID: [id number] Author: Libertad Julio MD Service: ? Author [...] hernia with GERD 12/2016 UGI 01/10/[address] [facility] Hyperlipidemia Hypertension Inguinal hernia, bilateral Ischemic cardiomyopathy [...] Abs Lymph 1.00 - 4.00 k/uL 2.50 [place]% % 11.7 Abs [place] <0.87 k/uL 0.77 Eosin% % 1.7 Abs Eosin <0.46 k/uL 0.11 Baso% % 1.2 Abs Baso <0.11 k/uL 0.08 Immature Gran % % 0.2 (more content not included)... [facility] 04-11-2022 History of Presen t illness Narrative [...] hernia with GERD 12/2016 UGI 01/10/[address] [facility] Hyperlipidemia Hypertension Inguinal hernia, bilateral Ischemic cardiomyopathy [...] Abs Lymph 1.00 - 4.00 k/uL 2.50 [place]% % 11.7 Abs [place] <0.87 k/uL 0.77 Eosin% % 1.7 Abs [...] 31.7 ASSESSMENT/PLAN: 1. Coronary artery disease involving seneca-cay[place] heart without angina pectoris, unspecified vessel or [...] Libertad Julio MD documented in this encounter [facility] 02-03-2022 Miscellaneous Notes Patient returned call and given provider's message below and patient verbalized understanding. Marlee Andrews RN Left message to return call ----- Message from Libertad uJlio MD sent at 02/03/2022 11:41 AM EDT ----- CT scan shows emphysema with stable subcentimeter nodules. Each <3 mm. No new nodules noted. Without other risk factors for lung cancer, would not recommend follow up at this time. documented in this encounter [facility] 02-02-2022 Note HNO ID: [id number] Author: RT Kuldip(Malcom) Service: ? Author Type: Sander Machine Type: Progress Notes Filed: 02/02/2022 1:38 PM [...] RT Haritha(R) February 02, 2022 1:38 PM [facility] 02-02-2022 History of Presen t illness Narrative [...] 2022 1:38 PM documented in this encounter [facility] 01-18-2022 Note HNO ID: [id number] Author: RT Angelica(Malcom) Service: Radiology Author Type: [...] RT Angelica(R) January 18, 2022 8:47 AM [facility] 01-18-2022 Note HNO ID: [id number] Author: Romina Lozano APRN.RN MANAGED CARE Service: ? 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 PAST MEDICAL HISTORY Diagnosis Date - Anemia of chronic disease - Atrial flutter (HCC) - CAD (coronary artery disease) 2010 CABG x3, Seeing Dr. Tineo - CKD (chronic kidney disease), stage III ([facility]) - Hiatal hernia with GERD 12/2016 UGI 01/10/[address] [facility] - Hyperlipidemia - Hypertension - Inguinal hernia, [...] FRONTAL/LAT - follow-up pending testing Romina Riveralogmonique, INDUSTRIAL DESIGN INTERN.RN MANAGED CARE Prescription instructions reviewed with patient as applicable. Patient advised if symptoms do not improve or if symptoms worsen sooner, to contact their primary care physician. Potential red flag symptoms discussed with the patient. Reviewed appropriate action plan to take if red flag symptoms occur. Patient agreeable to treatment plan. 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 PAST MEDICAL HISTORY Diagnosis Date Anemia of chronic disease Atrial flutter (HCC) CAD (coronary artery disease) 2010 CABG x3, Seeing Dr. Tineo CKD (chronic kidney disease), stage III (HCC) Hiatal hernia with GERD 12/2016 UGI 01/10/[address] [facility] Hyperlipidemia Hypertension Inguinal hernia, bilateral Ischemic cardiomyopathy [...] to treatment plan. documented in this encounter [facility] 01-18-2022 Miscellaneous Notes Reviewed. Romina Lozano [...] No travel history Protocols used: COUGHING UP [id number] documented in this encounter [facility] 01-17-2022 Miscellaneous Notes Can we please triage this man for complaints of spitting up blood. Is he coughing it up or vomiting it up? Thanks, Romina Lozano APRN.RN MANAGED CARE documented in this encounter [facility] 10-15-2021 Miscellaneous Notes Reviewed. Patient called [...] if patient agreeable. documented in this encounter [facility] 10-11-2021 Note HNO ID: [id number] Author: Libertad Julio MD Service: ? Author [...] hernia with GERD 12/2016 UGI 01/10/[address] [facility] - Hyperlipidemia - Hypertension - Inguinal hernia, [...] Abs Lymph 1.00 - 4.00 k/uL 2.48 [place]% % 8.9 Abs [place] <0.87 k/uL 1.17 (H) Eos (more content not included)... [facility] documented as of this encounter (statuses as of 01/18/2022) [address]08-[address] History of Past illness Narrative* Problem Noted Date Resolved Date Rectal bleeding 10/19/2010 09/15/2017 Pneumonia 10/31/2016 documented as of this encounter (statuses as of 01/19/2022) [address]08-[address] History of Past illness Narrative* Problem Noted Date Resolved Date Rectal bleeding 10/19/2010 09/15/2017 Pneumonia 10/31/2016 documented as of this encounter (statuses as of 02/03/2022) [facility] History of Past illness Narrative* Problem Noted Date Resolved Date Rectal bleeding 10/19/2010 09/15/2017 Pneumonia 10/31/2016 documented as of this encounter (statuses as of 02/03/2022) [facility] History of Past illness Narrative* Problem Noted Date Resolved Date Rectal bleeding 10/19/2010 09/15/2017 Pneumonia 10/31/2016 documented as of this encounter (statuses as of 03/02/2022) [facility] History of Past illness Narrative* Problem Noted Date Resolved Date Rectal bleeding 10/19/2010 09/15/2017 Pneumonia 10/31/2016 documented as of this encounter (statuses as of 03/04/2022) [facility] History of Past illness Narrative* Problem Noted Date Resolved Date Rectal bleeding 10/19/2010 09/15/2017 Pneumonia 10/31/2016 documented as of this encounter (statuses as of 04/11/2022) [facility] History of Past illness Narrative* Problem Noted Date Resolved Date Rectal bleeding 10/19/2010 09/15/2017 Pneumonia 10/31/2016 documented as of this encounter (statuses as of 09/13/2022) [address] History of Past illness Narrative* Problem Noted Date Diagnosed Date Resolved Date Rectal bleeding 10/19/2010 09/15/2017 Pneumonia 10/31/2016 documented as of this encounter (statuses as of 10/16/2023) [facility] Diagnosis Spitting up blood- Primary Hemoptysis, unspecified [facility] Diagnosis Hemoptysis Hemoptysis, unspecified [facility] Diagnosis Stage 3b chronic kidney disease (HCC)- Primary documented in this encounter [facility] note* Diagnosis Coronary artery disease involving sen[place]-c[place] heart without angina pectoris, unspecified vessel or [...] of patient's decision [facility] Diagnosis Leg pain, bilateral- Primary Pain in limb Atrial flutter, unspecified type (HCC) Chronic kidney disease, stage 3b (HCC) documented in this encounter [facility] Reason for Referral Specialty Diagnoses / Procedures Referred By Bertha [email or web address] Referred To Contact CT IMAGING Diagnoses Hemoptysis Procedures CT CHEST WO IVCON DIAGNOSTIC COMPUTED TOMOGRAPHY THORAX W/O CNTRST MiguellogRomina le APRN.RN MANAGED CARE [address] [place] [address] Ct Imaging Referral ID Status Reason Start Date Expiration Date V isits Requested Visits Authorized [id number] Closed Auto-Generate d Referral 02/02/2022 03/04/2022 1 [...] or prosecute any alcohol or drug abuse patient.[facility] the event this information is protected by the Federal Confidentiality of Alcohol and Drug Abuse Patient Records regulations: The Federal rules restrict any use of the information to criminally investigate or prosecute any alcohol or drug abuse patient.[facility] the event this information is protected by the Federal Confidentiality of Alcohol and Drug Abuse Patient Records regulations: The Federal rules restrict any use of the information to criminally investigate or prosecute any alcohol or drug abuse patient.[facility] the event this information is protected by the Federal Confidentiality of Alcohol and Drug Abuse Patient Records regulations: The Federal rules restrict any use of the information to criminally investigate or prosecute any alcohol or drug abuse patient.[facility] the event this information is protected by the Federal Confidentiality of Alcohol and Drug Abuse Patient Records regulations: The Federal rules restrict any use of the information to criminally investigate or prosecute any alcohol or drug abuse patient.[facility] the event this information is protected by the Federal Confidentiality of Alcohol and Drug Abuse Patient Records regulations: The Federal rules restrict any use of the information to criminally investigate or prosecute any alcohol or drug abuse patient.[facility] the event this information is protected by the Federal Confidentiality of Alcohol and Drug Abuse Patient Records regulations: The Federal rules restrict any use of the information to criminally investigate or prosecute any alcohol or drug abuse patient.[facility] the event this information is protected by the Federal Confidentiality of Alcohol and Drug Abuse Patient Records regulations: The Federal rules restrict any use of the information to criminally investigate or prosecute any alcohol or drug abuse patient.[facility] the event this information is protected by the Federal Confidentiality of Alcohol and Drug Abuse Patient Records regulations: The Federal rules restrict any use of the information to criminally investigate or prosecute any alcohol or drug abuse patient.[facility] Reason for Visit (unrecogniz ed section and content) Reason Comments Coughing Up Blood Reason Comments Radiology CT Specialty Diagnoses / Procedures Referred By Bertha t Referred To Contact CT IMAGING Diagnoses Hemoptysis Procedures CT CHEST WO IVCON DIAGNOSTIC COMPUTED TOMOGRAPHY THORAX W/O CNTRST MiguellogRomina le APRN.RN MANAGED CARE [address] [place] [address] Ct Imaging Referral ID Status Reason Start Date Expiration Date V isits Requested Visits Authorized [id number] Closed Auto-Generate d Referral 02/02/2022 03/04/2022 1 1 Reason Comments Results Reason Comments Returning Patient's Call Reason Comments Follow Up 6 month Reason Comments Pain Both legs experienci ng burning from knees down for 3 nights. Says he takes covers off and it subsides. Reason Onset Date Comments Refill Request 10/13/2023 Refill Request 10/16/2023 Care Teams (unrecognized sec tion and content) Needle Felt Making Machine Operator Relationship Specialty Start Date End Date Libertad Julio MD [address] [place] [address] PCP - General Family Practice 12/01/16 Needle Felt Making Machine Operator Relationship Specialty Start Date End Date Libertad Julio MD [address] [place] [address] PCP - General Family Practice 12/01/16 Needle Felt Making Machine Operator Relationship Specialty Start Date End Date Libertad Julio MD [address] [place] [address] PCP - General Family Practice 12/01/16 Needle Felt Making Machine Operator Relationship Specialty Start Date End Date Libertad Julio MD [address] [place] [address] PCP - General Family Practice 12/01/16 Needle Felt Making Machine Operator Relationship Specialty Start Date End Date Libertad Julio MD [address] [place] [address] PCP - General Family Practice 12/01/16 Needle Felt Making Machine Operator Relationship Specialty Start Date End Date Libertad Julio MD [address] [facility] [place] [id number] PCP - General Family Medicine 12/01/16 Needle Felt Making Machine Operator Relationship Specialty Start Date End Date Libertad Julio MD [address] [facility] [place] [id number] PCP - General Family Medicine 12/01/16 (unrecognized [...] BE BASED ON THE PRIMARY CLINICAL RECORDS. [facility]. provides no warranty or guarantee of the accuracy or completeness of information in this document.
== END | disposition home or self-care (01) ==
PROVIDERS: PCP Family Medicine; Referring Provider Physician Assistant Medical; Visit Provider Physician Assistant Medical
DX: I48.0 Paroxysmal atrial fibrillation (principal); I25.5 Ischemic cardiomyopathy; E78.5 Hyperlipidemia, unspecified; Z95.1 Presence of aortocoronary bypass graft; Z95.810 Presence of automatic (implantable) cardiac defibrillator
CPT/HCPCS: 93306

== ENCOUNTER → 2023-11-06 | Outpatient (CLI) | payer MEDICARE, SELFPAY ==
[2023-11-06 09:08] LABS: Anion Gap 4 (5-15); BUN 42 mg/dL (7-18); Calcium,Total 8.9 mg/dL (8.5-10.1); Chloride 111 mmol/L (98-107); EST Glomerular Filtration Rate 34 mL/min (>60); Est Glom Filt Rate - Afr Amer 41 mL/min (>60); Glucose 103 mg/dL (74-106); Sodium Level 142 mmol/L (136-145)
== END | disposition home or self-care (01) ==
LOC: LAB 07:15
PROVIDERS: PCP Family Medicine; Referring Provider Physician Assistant Medical; Visit Provider Physician Assistant Medical
DX: I25.5 Ischemic cardiomyopathy (principal); N18.30 Chronic kidney disease, stage 3 unspecified
CPT/HCPCS: 36415; 80048

== ENCOUNTER 2023-12-11 19:31 | Emergency (ER) | payer MEDICARE, SELFPAY ==
[2023-12-11 19:32] VITALS: BP 133/81; PULSE 116; RESP 18; TEMP 36.4; O2SAT 90; BMI 25.2
--- NOTE | 2023-12-11 19:42 | EX.ED.UPPERE ---
HPI <ALDAIR Kearney - Last Filed: 12/11/23 20:57> History of Present Illness Chief Complaint: Upper Extremity Injury Narrative Narrative: Patient presenting today with swelling to his left elbow that he noticed this evening. He reports that he was resting his left elbow on his riding lawnmower while mowing the lawn. Several hours later he noticed the swelling. He is on Eliquis due to history of A-fib. He denies any injury or pain to his elbow. He denies any fevers or chills. PFSH <ALDAIR Kearney - Last Filed: 12/11/23 20:57> [facility] Medical History Abnormal electrocardiogram [ECG] [EKG] Atherosclerotic heart disease of [place] coronary artery without angina pectoris Cardiology follow-up encounter Chondrocalcinosis of left knee CKD (chronic kidney disease) stage 3, GFR 30-59 ml/min Encounter for long-term current use of high risk medication High cholesterol History of echocardiogram History of stress test Hyperlipidemia Hypertension Injury of head and neck Ischemic cardiomyopathy Non-sustained ventricular tachycardia Palpitations Paroxysmal atrial fibrillation Persistent atrial fibrillation Secondary pulmonary arterial hypertension Transient ischemic attack Wears glasses Home Medications cholecalciferol (vitamin D3) 25 mcg (1,000 unit) capsule 25 mcg PO DAILY VITAMIN SUPPLEMENT 12/19/19 [History Last Taken Unknown] apixaban 2.5 mg tablet (Eliquis) 2.5 mg PO BID BLOOD THINNER 05/07/21 [History Last Taken 10/16/23] carvedilol 6.25 mg tablet 6.25 mg PO BID HEART #180 tabs 10/13/23 [Rx Last Taken Unknown] furosemide 20 mg tablet (Lasix) 20 mg PO .COMPLEX #30 tabs 11/06/23 [Rx Last Taken Unknown] Allergy/AdvReac Type Severity Reaction Status Date / Time No Known Allergies Allergy Verified 09/25/23 08:34 Family History Father CAD (coronary artery disease), Onset Age: 55 Mother , unknown cause No problems noted. Brother CAD (coronary artery disease) History of coronary artery bypass graft x 3 Brother Cancer Brother Unknown whether patient has any health problems Brother , unknown causes No problems noted. 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) History of implantable cardiac defibrillator (ICD) History of umbilical hernia repair Hx of bilateral cataract extraction Presence of implantable cardioverter-defibrillator (ICD) (05/25/11) Status post laparoscopic colectomy Social History Smoking Status: Never smoker alcohol intake: never caffeine: Yes Type: coffee Number of servings: 2 ROS <ALDAIR Kearney - Last Filed: 12/11/23 20:57> ROS ED Constitutional Constitutional ED: Denies chills or fever(s) Cardiovascular Cardiovascular: Denies chest pain Respiratory/Chest Respiratory/Chest: Denies cough or dyspnea Gastrointestinal Gastrointestinal: Denies abdominal pain, nausea or vomiting Musculoskeletal Musculoskeletal: Reports arthralgias; Denies myalgias Integumentary Denies Abrasions or rash Neurologic Neurologic: Denies paresthesias or weakness EXAM <ALDAIR Kearney - Last Filed: 12/11/23 20:57> Physical Exam Const Vital Signs: 12/11/23 19:32 Temperature 97.5 F L Temperature Source Temporal Pulse Rate 116 H Respiratory Rate 18 Blood Pressure 133/81 H Blood Pressure Mean 98 Pulse Ox 90 Oxygen Delivery Method Room Air Positive well nourished, well developed and no apparent distress General Appearance ED: well developed HEENT Reports normocephalic and head/scalp atraumatic Mouth ED: Yes moist mucous membranes normal Eyes PERRL and EOMs intact bilaterally Neck full ROM and supple Chest Wall inspection of chest normal Resp normal respiratory effort and clear to auscultation bilaterally Cardio regular rate and regular rhythm GI soft to palpation, non-tender, non-distended and no masses Back/Spine normal ROM and normal to inspection Extremity normal to inspection and full ROM Extremity Narrative: Slight swelling to the left olecranon, no erythema, full range of motion to the left elbow, left radial pulse 2+, good capillary refill, sensation intact. Neuro oriented x3, CN's II-XII intact bilaterally, moves all extremities, no focal motor deficits and no sensory deficits noted Sensorium / Orientation: awake and alert Psych mental status grossly normal and thought process normal Skin no rashes or lesions noted and no wounds [facility] <ALDAIR Kearney - Last Filed: 12/11/23 20:57> [facility] Narrative Medical decision making narrative: Patient presenting today due to swelling to the left elbow, his examination is consistent with olecranon bursitis. He had his elbow resting on the tractor while mowing the lawn. This does not appear infectious, he has full range of motion to the left elbow, no signs of septic joint. He is well-appearing and in no acute distress. Supportive care measures discussed. We have encouraged him to bring his Eliquis for 1 or 2 days. Return instructions given and he will be discharged home in stable condition. I have personally performed a face to face assessment of the patient and have reviewed the RATNA Note. I performed a substantive portion of the visit including all aspects of the following. My eden findings include: History is remarkable for swelling discoloration left elbow. Patient states this occurred while he was mowing the yard. He is arm on a cushioned armrest. He presently denies fever or chills. Denies paresthesia, anesthesia medics. Exam is remarkable for traumatic olecranon bursitis on the left. There is no erythema, warmth, induration, lymphangitis or x-ray lymphadenopathy. Medical Decision Making patient has atraumatic olecranon bursitis this is not a septic bursitis. Treatment is conservative. Patient is on Eliquis. Patient has history of paroxysmal atrial fibrillation. Plan is to have patient hold Eliquis for 1 to 2 days since he has history of paroxysmal atrial fibrillation. Other additions or changes: [None] <Dr. Doni Johnson MD - Last Filed: 12/11/23 20:51> [facility] Narrative Medical decision making narrative: Patient presenting today due to swelling to the left elbow, his examination is consistent with olecranon bursitis. He had his elbow resting on the tractor while mowing the lawn. This does not appear infectious, he has full range of motion to the left elbow, no signs of septic joint. He is well-appearing and in no acute distress. I have personally performed a face to face assessment of the patient and have reviewed the RATNA Note. I performed a substantive portion of the visit including all aspects of the following. My eden findings include: History is remarkable for swelling discoloration left elbow. Patient states this occurred while he was mowing the yard. He is arm on a cushioned armrest. He presently denies fever or chills. Denies paresthesia, anesthesia medics. Exam is remarkable for traumatic olecranon bursitis on the left. There is no erythema, warmth, induration, lymphangitis or x-ray lymphadenopathy. Medical Decision Making patient has atraumatic olecranon bursitis this is not a septic bursitis. Treatment is conservative. Patient is on Eliquis. Patient has history of paroxysmal atrial fibrillation. Plan is to have patient hold Eliquis for 1 to 2 days since he has history of paroxysmal atrial fibrillation. Other additions or changes: [None] Discharge Plan Triage Chief Complaint: Upper Extremity Injury ED Midlevel Provider: Vickie Art ED Provider: Doni Johnson Dx/Rx/DC Orders Clinical Impression: Bursitis, olecranon, Chronic anticoagulation, Paroxysmal A-fib, Ischemic cardiomyopathy, Atherosclerotic heart disease of [place] coronary artery without angina pectoris Instructions: ED Bursitis Elbow Olecranon Prescriptions: No Action cholecalciferol (vitamin D3) 25 mcg (1,000 unit) capsule 25 mcg PO DAILY Eliquis 2.5 mg tablet 2.5 mg PO BID Patient Comments: LAST DOSE 11/07/21 carvedilol 6.25 mg tablet 6.25 mg PO BID Qty: 180 3RF furosemide [Lasix] 20 mg tablet 20 mg PO .COMPLEX Qty: 30 11RF Rx Instructions: 20 mg orally daily as NEEDED for SOB, swelling or weight gain.; Primary Care Provider: Aroldo Julio Referrals: Aroldo Julio MD [Primary Care Provider] - 1 Week Activity Restrictions/Additional Instructions: Ice your elbow for 15 minutes at a time a few times a day for the next few days. Hold your Eliquis for 2 days. Try to avoid resting your elbow on any hard surfaces. Disposition Disposition: Home, Self Care Discharge Date/Time: 12/11/23 20:28
[2023-12-11 20:21] VITALS: BP 125/77; PULSE 65; RESP 18; TEMP 36.3; O2SAT 95
== END 2023-12-11 20:28 | disposition home or self-care (01) ==
PROVIDERS: Emergency Provider Emergency Medicine; PCP Family Medicine; Visit Provider Emergency Medicine
DX: M70.22 Olecranon bursitis, left elbow (principal); I48.0 Paroxysmal atrial fibrillation; N18.30 Chronic kidney disease, stage 3 unspecified; I25.5 Ischemic cardiomyopathy; I25.10 Atherosclerotic heart disease of native coronary artery without angina pectoris; Z79.01 Long term (current) use of anticoagulants; Z86.73 Personal history of transient ischemic attack (TIA), and cerebral infarction without residual deficits
CPT/HCPCS: 99282

== ENCOUNTER → 2024-02-27 | Outpatient (CLI) | payer MEDICARE, SELFPAY ==
[2024-02-27 07:09] LABS: Anion Gap 4 (5-15); BUN 40 mg/dL (7-18); BUN/Creat Ratio 20.4 RATIO (10-20); Calcium,Total 8.8 mg/dL (8.5-10.1); Chloride 108 mmol/L (98-107); Creatinine, Serum 1.96 mg/dL (0.70-1.30); EST Glomerular Filtration Rate 35 mL/min (>60); Est Glom Filt Rate - Afr Amer 42 mL/min (>60); Glucose 118 mg/dL (74-106); Potassium 4.1 mmol/L (3.5-5.1); Sodium Level 140 mmol/L (136-145)
== END | disposition home or self-care (01) ==
LOC: LAB 06:07
PROVIDERS: PCP Family Medicine; Referring Provider Physician Assistant Medical; Visit Provider Physician Assistant Medical
DX: N18.30 Chronic kidney disease, stage 3 unspecified (principal); I25.5 Ischemic cardiomyopathy; Z51.81 Encounter for therapeutic drug level monitoring; Z79.899 Other long term (current) drug therapy
CPT/HCPCS: 36415; 80048

== ENCOUNTER 2024-05-30 16:06 | Inpatient (IN) | payer MEDICARE, SELFPAY ==
[2024-05-30] VITALS (11 sets, daily range): BP systolic 99–128; BP diastolic 56–83; PULSE 70–99; RESP 16–19; TEMP 36.6–36.7; O2SAT 87–100; BMI 26.2; BMI 24.4
--- NOTE | 2024-05-30 16:43 | CT_ITS ---
STUDY: CT CHEST, ABDOMEN T PELVIS WITH CONTRAST REASON FOR EXAM: Male, 89 years old. Diffuse back pain/trauma, pleuritic/sob; Eliquis RADIATION DOSAGE (If Supplied By Facility): CTDIvol = ( 23.59 ) mGy, DLP = ( 1985.26 ) mGycm TECHNIQUE: Transaxial imaging was performed following intravenous administration of ISOVUE 300 100ML. Multiplanar coronal and sagittal images were reformatted. Individualized dose optimization techniques were used for this CT. COMPARISON: No relevant priors. FINDINGS: CHEST There are mild interstitial increased opacities of the lungs. There is 0.9 cm subpleural nodule in the right midlung. There is calcified granuloma in the right midlung. There is no demonstrated pleural abnormality. There are calcifications of the coronary arteries. There is dual-chamber pacemaker device on the left. Sternal cerclage wires are present from a prior sternotomy. There are calcified mediastinal lymph nodes.. Normal hilar regions. Normal unenhanced pulmonary arteries. There is atherosclerotic calcification of the aortic arch with tortuosity and elongation of the aortic arch and descending thoracic aorta. There are multi-level degenerative changes of the thoracic spine. ABDOMEN Normal liver. Normal gallbladder and extrahepatic biliary system. There are multiple benign calcified granulomata of the spleen. Normal pancreas. Normal bilateral adrenal glands. There are bilateral renal cysts including measuring up to 2.3 cm on the right and 6.0 cm on the left. Normal left kidney. Normal visualized stomach. Normal small intestine. There are a few colonic diverticula consistent with diverticulosis. The appendix is visualized and appears normal. 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 Normal inferior vena cava. Normal retroperitoneum. There is postoperative change of the abdominal wall. There are diffuse degenerative changes of the visualized lumbar spine. PELVIS Normal urinary bladder. Normal visualized small intestine. There is postoperative change at the sigmoid colon. There are a few diverticula present. There is no pelvic fluid. There is no pelvic lymphadenopathy or mass lesion. There is diffuse atherosclerotic calcification of the pelvic arteries. 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 There is postoperative change of the lower anterior abdominal wall. Normal osseous structures. CT/CT Chest, Abd, Pel w/Contrast IMPRESSION: No solid organ injury. No fracture or pneumothorax. Mild interstitial edema on the lungs. Right midlung nodule. Follow up recommended according to Fleischner Society guidelines. Colonic diverticulosis. Postoperative change. No obstruction. Abdominal aortic aneurysm. Electronically Signed: Henry Vázquez MD at 18:50 EDT ,
--- NOTE | 2024-05-30 16:44 | EDS_ITS ---
HPI HPI - Fall History of Present Illness Chief Complaint: Fall Informant: patient, family and EMS Narrative Narrative: 89-year-old male on apixaban was about 2 steps up on a ladder that gave way and he fell, his feet landing on the concrete slab below and then he fell backward to his back against the concrete. He is complaining of pain in his mid back that hurts to breathe making him feel dyspneic. Denies any pain or injury anywhere else including chest or abdomen. Denies any numbness or pain going down his legs. Denies hitting his head or having a headache or neck pain. [facility] Medical History Olecranon bursitis, left elbow Left elbow pain Chondrocalcinosis of left knee Hypertension Wears glasses High cholesterol Injury of head and neck Cardiology follow-up encounter History of echocardiogram History of stress test Persistent atrial fibrillation Non-sustained ventricular tachycardia Secondary pulmonary arterial hypertension Transient ischemic attack Atherosclerotic heart disease of [place] coronary artery without angina pectoris Hyperlipidemia Ischemic cardiomyopathy Abnormal electrocardiogram [ECG] [EKG] Paroxysmal atrial fibrillation Encounter for long-term current use of high risk medication Palpitations CKD (chronic kidney disease) stage 3, GFR 30-59 ml/min Home Medications ?Medication ?Instructions ?Recorded ?Last Taken ?Type cholecalciferol (vitamin D3) 25 25 mcg PO DAILY VITAMIN SUPPLEMENT 12/19/19 Unknown History mcg (1,000 unit) capsule apixaban 2.5 mg tablet (Eliquis) 2.5 mg PO BID BLOOD THINNER 05/07/21 10/16/23 History carvedilol 6.25 mg tablet 6.25 mg PO BID HEART #180 tabs 10/13/23 Unknown Rx furosemide 20 mg tablet (Lasix) 20 mg PO Q OTHER DAY 03/25/24 Unknown History Allergy/AdvReac Type Severity Reaction Status Date / Time No Known Allergies Allergy Verified 03/25/24 08:23 Family History Father CAD (coronary artery disease), Onset Age: 55 Mother , unknown cause No problems noted. Brother CAD (coronary artery disease) History of coronary artery bypass graft x 3 Brother Cancer Brother Unknown whether patient has any health problems Brother , unknown causes No problems noted. Surgical History Hx of bilateral cataract extraction History of implantable cardiac defibrillator (ICD) Status post laparoscopic colectomy H/O coronary artery bypass surgery (11/24/10) History of umbilical hernia repair Presence of implantable cardioverter-defibrillator (ICD) (05/25/11) Social History household members: spouse Smoking Status: Never smoker alcohol intake: never substance use type: does not use caffeine: Yes Type: coffee Number of servings: 2 ROS ROS ED Constitutional Constitutional ED: Denies chills or fever(s) Eyes Eyes: Denies change in vision or diplopia ENT ENT ED: Denies ear pain, epistaxis, facial pain or rhinorrhea Cardiovascular Cardiovascular: Denies chest pain or palpitations Respiratory/Chest Respiratory/Chest: Reports dyspnea; Denies cough Gastrointestinal Gastrointestinal: Denies abdominal pain, diarrhea, melena, nausea or vomiting Genitourinary Genitourinary ED: Denies dysuria or hematuria Musculoskeletal Musculoskeletal: Reports back pain; Denies extremity pain or neck pain Integumentary Denies abscess, Abrasions, laceration or rash Neurologic Neurologic: Denies confusion, headache(s), paresthesias or weakness EXAM Physical Exam Const Vital Signs: 05/30/24 16:08 05/30/24 16:15 05/30/24 16:28 Temperature 98 F Temperature Source Oral Pulse Rate 70 99 Respiratory Rate 18 18 Respiratory Effort Short of Breath Respiratory Depth Normal Respiratory Pattern Normal Blood Pressure 117/83 H 108/73 Blood Pressure Mean 94 84 Pulse Ox 96 87 Oxygen Delivery Method Nasal Cannula Oxygen Flow Rate (L/min) 2 05/30/24 17:28 05/30/24 18:00 05/30/24 19:00 Temperature Temperature Source Pulse Rate 74 77 81 Respiratory Rate 16 18 16 Respiratory Effort Respiratory Depth Respiratory Pattern Blood Pressure 103/73 127/82 H 99/80 Blood Pressure Mean 83 97 86 Pulse Ox 95 97 98 Oxygen Delivery Method Room Air Nasal Cannula Room Air Oxygen Flow Rate (L/min) 2 05/30/24 20:00 05/30/24 21:00 05/30/24 22:00 Temperature Temperature Source Pulse Rate 82 76 77 Respiratory Rate 19 H 17 16 Respiratory Effort Respiratory Depth Respiratory Pattern Blood Pressure 109/79 101/56 L 106/68 Blood Pressure Mean 89 71 80 Pulse Ox 95 100 98 Oxygen Delivery Method Room Air Room Air Room Air Oxygen Flow Rate (L/min) Positive well nourished and well developed General Appearance ED: well developed and NAD HEENT Reports nasal mucous membranes and turbinates normal atraumatic Face and Sinus: Negative for facial tenderness Eyes PERRL and EOMs intact bilaterally Visual Acuity: other Other Details: no entrapment or pain with extraocular movements Neck full ROM and supple General: Negative for tenderness Chest Wall inspection of chest normal and palpation of chest normal Chest: symmetrical chest wall rise; Negative for crepitus or tenderness Resp normal respiratory effort and clear to auscultation bilaterally Percussion: other equal BS bilat Cardio no murmurs Rate: regular rate Rhythm: regular rhythm GI normal to inspection, nondistended, normoactive bowel sounds, soft to palpation and non-tender GI Narrative: No John Day sign no Lema Chisholm. Back/Spine Back/Spine Narrative: With sitting up patient in severe mid-low back pain, going down to about the L1 area and up to about the T5 or 6 area. None of the pain is reproducible with palpation only with moving and taking deep inspiration on behalf of the patient. He splints with deep inspiration especially when sitting up. Normal inspection no obvious signs of trauma no palpable step-offs in the back, he is able to sit up. I can feel the spinous processes and there is no step-off. Cervical Spine: Negative for cervical spine tenderness Thoracic Spine / Upper Back: Negative for thoracic spinal tenderness Lumbar Spine / Lower Back: Negative for lumbar spinal tenderness Extremity normal to inspection and full ROM Extremity Narrative: Full range of motion throughout all 4 extremities without any pain. General Extremety ED: Negative for tenderness Neuro oriented x3, CN's II-XII intact bilaterally, moves all extremities, no focal motor deficits and no sensory deficits noted Brian Coma Scale: document GCS findings Spontaneous Obeys Commands Oriented 15 Sensorium / Orientation: awake and alert Psych mental status grossly normal and thought process normal Skin no wounds Lesions: no lesions Rashes: no rashes MDM MDM MDM Narrative Medical decision making narrative: Given the patient's symptoms, my concern are the following possibilities: Back fracture, diaphragm rupture, pulmonary contusion, retroperitoneal hematoma/hemorrhage since he is anticoagulated, renal injury, less likely solid organ intraperitoneal injury since he has no abdominal pain or tenderness. For this reason I ordered an emergent CT of the chest/abdomen/pelvis. In order to safely obtain his labs were obtained in addition to a urine to screen for renal injury, the urine is unremarkable and labs are noted. He is not anemic acutely which is reassuring. While he was in CT, the technicians were asking if he hit his head and I told him yes. They asked me if I wanted also obtain a CT of the head, to which I answer yes. I did confirm with the daughter in the room who is with me for the initial evaluation, that the patient told both of his several times that he did not hit his head. We did obtain the CT and I reviewed the images and the report which I agree with it is negative for intracranial hemorrhage/injury. I also reviewed the CT of the chest/abdomen/pelvis and agree with the report, it is essentially negative for anything acute. The radiologist did comment on his spine as well as the retroperitoneum and his organs, none of which have acute injury. He does not have findings on the CT to explain his symptoms. It could be all muscular. However he is having a significant amount of difficulty getting up out of bed and moving and walking and performing ADLs, he lives alone. Daughter is asking about having him stay in the hospital which I think is reasonable. I do not think he needs to be transferred to a trauma center as he does not have any acute radiographic traumatic injury. Lab Data Attestation: I reviewed the patient's lab results. Labs: Laboratory Results - last 24 hr 05/30/24 05/30/24 16:15 20:05 WBC 9.5 RBC 4.97 Hgb 14.7 Hct 45.6 MCV 91.8 MCH 29.6 MCHC 32.2 RDW Std Deviation 44.8 H RDW Coeff of [place] 13.2 Plt Count 144 L MPV 9.3 Immature Gran % (Auto) 0.600 Neut % (Auto) 89.3 H Lymph % (Auto) 6.8 L [place] % (Auto) 2.8 Eos % (Auto) 0.2 Baso % (Auto) 0.3 Absolute Neuts (auto) 8.5 H Absolute Lymphs (auto) 0.65 L Nucleated RBC % 0 Sodium 139 Potassium 4.4 Chloride 109 H Carbon Dioxide 27.0 Anion Gap 3 L BUN 41 H Creatinine 1.91 H Estim Creat Clear Calc 27.60 Est GFR (MDRD) Af Amer 43 L Est GFR (MDRD) Non-Af 36 L BUN/Creatinine Ratio 21.5 H Glucose 162 H Calcium 8.8 Total Bilirubin 1.10 H AST 52 H ALT 51 Alkaline Phosphatase 68 Total Protein 7.7 Albumin 3.5 Globulin 4.2 Albumin/Globulin Ratio 0.8 L Lipase 31 Urine Color Yellow Urine Clarity Clear Urine pH 6.0 Ur Specific [place] 1.010 Urine Protein 15 H Urine Glucose (UA) Normal Urine Ketones 15 H Urine Occult Blood 10 H Urine Nitrite Negative Urine Bilirubin Negative Urine Urobilinogen Normal Ur Leukocyte Esterase 25 H Urine RBC 0-5 SEEN Urine WBC 0-5 SEEN Ur Squamous Epith Cells 0-5 SEEN Urine Bacteria 0 SEEN Urine Mucus 0 SEEN Radiography Diagnostic Testing: Clinical Impression(s) from Imaging Studies Chest/Abdomen/Pelvis CT 05/30/24 16:43 IMPRESSION: No solid organ injury. No fracture or pneumothorax. Mild interstitial edema on the lungs. Right midlung nodule. Follow up recommended according to Fleischner Society guidelines. Colonic diverticulosis. Postoperative change. No obstruction. Abdominal aortic aneurysm. Electronically Signed: Henry Vázquez MD at 18:50 EDT , Brain CT 05/30/24 17:52 IMPRESSION: Chronic involutional changes of the brain. Electronically Signed: Henry Vázquez MD at 18:37 EDT , Management Discussion w/another healthcare provider: Hospitalist Discharge Plan Dx/Rx/DC Orders Clinical Impression: Back contusion, Pleuritic pain, Intractable back pain Disposition Disposition: Acute Care Hospital [facility]
[2024-05-30] MEDS: fentaNYL 100 MCG/2 ML Ampul 25 MCG IV (16:56)
[2024-05-30] MEDS: Ondansetron 4 MG/2 ML Vial IV (16:56)
[2024-05-30 17:20] LABS: ALB/GLOB Ratio 0.8 RATIO (0.9-2.4); AST(SGOT) 52 U/L (15-37); Alanine Aminotransfer ALT/SGPT 51 U/L (16-61); Albumin, Serum 3.5 g/dL (3.2-5.0); Alkaline Phosphatase 68 U/L (45-117); Anion Gap 3 (5-15); BUN 41 mg/dL (7-18); BUN/Creat Ratio 21.5 RATIO (10-20); Calcium,Total 8.8 mg/dL (8.5-10.1); Chloride 109 mmol/L (98-107); Creatinine, Serum 1.91 mg/dL (0.70-1.30); EST Glomerular Filtration Rate 36 mL/min (>60); Est Glom Filt Rate - Afr Amer 43 mL/min (>60); Globulin 4.2 g/dL (2.2-4.2); Glucose 162 mg/dL (74-106); Lipase 31 U/L (13-75); Potassium 4.4 mmol/L (3.5-5.1); Protein, Total 7.7 g/dL (6.4-8.2); Sodium Level 139 mmol/L (136-145)
[2024-05-30 17:21] LABS: Absolute Lymphocyte Count 0.65 X10^3/uL (0.83-4.51); Absolute Neutrophil Count 8.5 X10^3/uL (2.0-7.7); Basophil# 0.03 X10^3/uL; Basophil% 0.3 % (0-1); Eosinophil# 0.02 X10^3/uL; Eosinophils% 0.2 % (0-5); Hematocrit 45.6 % (40-54); Hemoglobin 14.7 g/dL (13.0-16.5); Lymphocyte # 0.65 X10^3/ul (0.83-4.51); Lymphocyte % 6.8 % (19-41); Mean Corp Hgb Conc 32.2 g/dL (32-36); Mean Corpuscular Hgb 29.6 pg (27.0-32.0); Mean Corpuscular Volume 91.8 fL (80-94); Mean Platelet Vol. 9.3 fl (6.2-12.0); Monocyte# 0.27 X10^3/uL; Monocyte% 2.8 % (0-10); NRBC Flagged by Analyzer 0 % (0-5); Neutrophil # 8.46 X10^3/uL (2.7-7.7); Neutrophil % 89.3 % (47-70); Platelet Count 144 K/mm3 (150-450); RBC Distribution Width CV 13.2 % (11.6-14.6); RBC Distribution Width SD 44.8 fl (35.1-43.9); Red Blood Count 4.97 M/mm3 (4.6-6.2); White Blood Count 9.5 K/mm3 (4.4-11.0)
--- NOTE | 2024-05-30 17:52 | CT_ITS ---
STUDY: CT BRAIN WITHOUT CONTRAST REASON FOR EXAM: Male, 89 years old. Trauma RADIATION DOSAGE (If Supplied By Facility): CTDIvol = ( 44.99 ) mGy, DLP = ( 897.35 ) mGycm TECHNIQUE: Transaxial CT imaging of the brain was performed without administration of intravenous contrast material. Individualized dose optimization techniques were used for this CT. COMPARISON: March 02, 2020 FINDINGS: Normal soft tissue structures. Normal calvarium. There is mild cerebral atrophy with widening of the extra-axial spaces and ventricular dilatation. There are areas of decreased attenuation within the white matter tracts of the supratentorial brain, consistent with microvascular disease changes. Normal basal ganglia and thalami. Normal brainstem. Normal cerebellum. There is no intracranial hemorrhage. There are no findings of an acute ischemic infarction. There are atherosclerotic calcifications Normal visualized paranasal sinuses. CT/Brain/Head without Contrast IMPRESSION: Chronic involutional changes of the brain. Electronically Signed: Henry Vázquez MD at 18:37 EDT ,
[2024-05-30 20:17] LABS: Bacteria 0 SEEN /hpf (None Seen); Mucous, Urine 0 SEEN /hpf (<or=2+)
[2024-05-30 20:29] LABS: Color, Urine Yellow (Yellow); Glucose, Dipstick Normal (Normal); Ketone-Dipstick 15 mg/dl (Negative); Leukocyte Esterase-Dipstick 25 /ul (Negative); Nitrite-Dipstick Negative (Negative); Occult Blood-Urine 10 /ul (Negative); Protein-Dipstick 15 mg/dl (Negative); Urine Bilirubin Dipstick Negative (Negative); Urine Clarity Clear (Clear); Urine Urobilinogen Normal (Normal)
[2024-05-30 20:47] LABS: Red Blood Cells-Urine 0-5 SEEN /hpf (0-5); Squamous Epithelial Cells - UA 0-5 SEEN /hpf (0-5); White Blood Cells 0-5 SEEN /hpf (0-5)
--- NOTE | 2024-05-30 21:59 | PCM.HP.STD ---
HPI - General General Date of Admission: 05/30/24 Date of Service: 05/30/24 Chief Complaint: Fall, intractable back pain. HPI Narrative The patient is an 89 y/o M w/ PMHx: PAF, HTN, HLD, Hx SVT, Hx TIA, CAD s/p CABG x 3 MENDOZA-LAD,SVG-D1, 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/2010 w/ Ischemic cardiomyopathy s/p AICD with most recent generator change out 10/2023, CKD stage III unclear subtype per GFR trending who presents to the [facility] ED on 05/30/24 with history of being on a 2 step ladder that unfortunately gave way when a door near it opened, prompting him to fall landing on his feet on a concrete slab below then falling backward with his back against the concrete with significant pain in his mid back with discomfort taking a deep breath with increase sensation of dyspnea because of this with no pain anywhere else including his chest or abdomen and no paresthesias to his extremities with denial of loss of consciousness or trauma to his head or neck but given ongoing discomfort prompted ED evaluation. He actually was evaluated by EMS when he first fell and he then declined transition to ED but given ongoing called them back. He notes he has since last ED evaluation been able to get up to the restroom but with marked difficulty and discomfort. He currently rates his pain 7/10 in severity. He denies any radicular pain. He notes the last eliquis dose he took was in the AM as he missed his evening dose. He noted he was up on the ladder attempting to work on what sounds like molding. Workup in the ED included T98, heart 70, BP 117/83, respiratory rate 18, 96% initially on room air however desaturated and was placed on 2 L nasal cannula but still remained 87% eventually improving to 97% on 2 L nasal cannula with now most recent repeat vital signs heart rate 76, BP 101/56, respiratory rate 17, 100% room air, CBC with WBC 9.5, human 14.7, platelet 144 with left shift and lymphopenia, CMP with chloride 109, BUN/creatinine 41/1.91, GFR 36, glucose 162, T. bili 1.10, AST/LT 52/51 otherwise hepatic profile not marked appearing, lipase 31, urinalysis with protein 15, ketone 15, occult blood 10, negative nitrite, leukocyte Estrace 25 but no evidence of UTI, CT of the brain with chronic involutional changes, CT chest/abdomen/pelvis with contrast with no evidence of any solid organ injury, fracture or pneumothorax, mild interstitial edema on the lungs, right midlung nodule with recommended follow-up, colonic diverticulosis, postoperative change with no evidence of any obstruction, 3.4 cm infrarenal aneurysm, diffuse degenerative changes of the visualized lumbar spine. In the ED patient ministered fentanyl 25 mcg IV x 1, morphine 2 mg IV x 1, Zofran 4 mg IV x 1. Patient in ED is having significant debility and unable to even get up out of bed or move reportedly living alone with daughter requesting that he stay in the hospital. ED physician notes given no evidence of any trauma no plan to transfer to a tertiary trauma center given that he was a fall on anticoagulant therapy. [facility] Medical History Olecranon bursitis, left elbow Left elbow pain Chondrocalcinosis of left knee Hypertension Wears glasses High cholesterol Injury of head and neck Cardiology follow-up encounter History of echocardiogram History of stress test Persistent atrial fibrillation Non-sustained ventricular tachycardia Secondary pulmonary arterial hypertension Transient ischemic attack Atherosclerotic heart disease of [place] coronary artery without angina pectoris Hyperlipidemia Ischemic cardiomyopathy Abnormal electrocardiogram [ECG] [EKG] Paroxysmal atrial fibrillation Encounter for long-term current use of high risk medication Palpitations CKD (chronic kidney disease) stage 3, GFR 30-59 ml/min Home Medications ?Medication ?Instructions ?Recorded ?Last Taken ?Type cholecalciferol (vitamin D3) 25 25 mcg PO DAILY VITAMIN SUPPLEMENT 12/19/19 Unknown History mcg (1,000 unit) capsule apixaban 2.5 mg tablet (Eliquis) 2.5 mg PO BID BLOOD THINNER 05/07/21 10/16/23 History carvedilol 6.25 mg tablet 6.25 mg PO BID HEART #180 tabs 10/13/23 Unknown Rx furosemide 20 mg tablet (Lasix) 20 mg PO Q OTHER DAY 03/25/24 Unknown History Allergy/AdvReac Type Severity Reaction Status Date / Time No Known Allergies Allergy Verified 03/25/24 08:23 Family History Father CAD (coronary artery disease), Onset Age: 55 Mother , unknown cause No problems noted. Brother CAD (coronary artery disease) History of coronary artery bypass graft x 3 Brother Cancer Brother Unknown whether patient has any health problems Brother , unknown causes No problems noted. Surgical History Hx of bilateral cataract extraction History of implantable cardiac defibrillator (ICD) Status post laparoscopic colectomy H/O coronary artery bypass surgery (11/24/10) History of umbilical hernia repair Presence of implantable cardioverter-defibrillator (ICD) (05/25/11) Social History household members: spouse Smoking Status: Never smoker alcohol intake: never substance use type: does not use caffeine: Yes Type: coffee Number of servings: 2 ROS ROS Narrative Admission Review of Systems: CONSTITUTIONAL: No weight loss, fever, chills, + weakness or fatigue. HEENT: Eyes: No visual loss, blurred vision, double vision or yellow sclerae. Ears, Nose, Throat: No hearing loss, sneezing, congestion, runny nose or sore throat. SKIN: No rash or itching, lesions, wounds. CARDIOVASCULAR: No chest pain, chest pressure or chest discomfort, palpitations, edema, orthopnea, syncopal events. RESPIRATORY: No shortness of breath, cough or sputum, wheezing, hemoptysis. GASTROINTESTINAL: No anorexia, nausea, vomiting or diarrhea, abdominal pain, melena, BRBPR. GENITOURINARY: No dysuria, frequency, urgency or retention. NEUROLOGICAL: No headache, dizziness, syncope, paralysis, ataxia, numbness or tingling in the extremities, focal weakness, change in bowel or bladder control, seizure. MUSCULOSKELETAL: + muscle, back pain, joint pain or stiffness. HEMATOLOGIC: No anemia. + Easy bleeding/bruising. LYMPHATICS: No enlarged nodes. No history of splenectomy. PSYCHIATRIC: No history of depression or anxiety. ENDOCRINOLOGIC: No reports of sweating, cold or heat intolerance. No polyuria or polydipsia. ALLERGIES: No history of asthma, hives, eczema or rhinitis. Vital Signs Vital Signs Vital Signs: 05/30/24 16:08 05/30/24 16:15 05/30/24 16:28 Temperature 98 F Temperature Source Oral Pulse Rate 70 99 Respiratory Rate 18 18 Respiratory Effort Short of Breath Respiratory Depth Normal Respiratory Pattern Normal Blood Pressure 117/83 H 108/73 Blood Pressure Mean 94 84 Pulse Ox 96 87 Oxygen Delivery Method Nasal Cannula Oxygen Flow Rate (L/min) 2 05/30/24 17:28 05/30/24 18:00 05/30/24 19:00 Temperature Temperature Source Pulse Rate 74 77 81 Respiratory Rate 16 18 16 Respiratory Effort Respiratory Depth Respiratory Pattern Blood Pressure 103/73 127/82 H 99/80 Blood Pressure Mean 83 97 86 Pulse Ox 95 97 98 Oxygen Delivery Method Room Air Nasal Cannula Room Air Oxygen Flow Rate (L/min) 2 05/30/24 20:00 05/30/24 21:00 Temperature Temperature Source Pulse Rate 82 76 Respiratory Rate 19 H 17 Respiratory Effort Respiratory Depth Respiratory Pattern Blood Pressure 109/79 101/56 L Blood Pressure Mean 89 71 Pulse Ox 95 100 Oxygen Delivery Method Room Air Room Air Oxygen Flow Rate (L/min) Weight Weight: 183 lb Body Mass Index (BMI) 26.2 Physical Exam Narrative Physical Examination: General: Awake, alert, oriented x 3 and cooperative, seated upright in the ED bed, notes ongoing back discomfort rating 7 out of 10, worse with activity attempts and deep inspiratory effort. Skin: Normal color, normal turgor, no icterus, no cyanosis except occasional staged ecchymoses but oddly there is no current active bruising on the thorax/back. HEENT: AT/NC, EOMI, PERRLA, mildly dry MM, no carotid bruits or JVD noted. Lungs: Mildly diminished, greater bases, decreased effort secondary to pain elicited with deep inspiratory effort, no rales, ronchi or wheezing. Heart: Regular, paced; no gallop, rub audible. Abdomen: Soft, NTTP, ND, normal BS, no appreciated HSM. Extremities: No cyanosis, no clubbing, no marked peripheral edema, discomfort with palpation of the paraspinous lumbar region and somewhat up into the lower thoracic region. Neurological: Patient awake, alert, oriented as noted, cognitive function intact; pupils equally reactive to light and accommodation, cranial nerves grossly normal, moving all 4 extremities however limited given significant back pain, no focal deficits, strength severely globally decreased. Psychiatric: Affect appears fatigued, uncomfortable with examination, no acute evidence of depressive or anxiety feelings. Results Lab / Micro Data 05/30/24 16:15 05/30/24 16:15 Labs: Laboratory Results - last 24 hr 05/30/24 16:15: WBC 9.5, RBC 4.97, Hgb 14.7, Hct 45.6, MCV 91.8, MCH 29.6, MCHC 32.2, RDW Std Deviation 44.8 H, RDW Coeff of Christiano 13.2, Plt Count 144 L, MPV 9.3, Immature Gran % (Auto) 0.600, Neut % (Auto) 89.3 H, Lymph % (Auto) 6.8 L, Isabella % (Auto) 2.8, Eos % (Auto) 0.2, Baso % (Auto) 0.3, Absolute Neuts (auto) 8.5 H, Absolute Lymphs (auto) 0.65 L, Nucleated RBC % 0, Sodium 139, Potassium 4.4, Chloride 109 H, Carbon Dioxide 27.0, Anion Gap 3 L, BUN 41 H, Creatinine 1.91 H, Estim Creat Clear Calc 27.60, Est GFR (MDRD) Af Amer 43 L, Est GFR (MDRD) Non-Af 36 L, BUN/Creatinine Ratio 21.5 H, Glucose 162 H, Calcium 8.8, Total Bilirubin 1.10 H, AST 52 H, ALT 51, Alkaline Phosphatase 68, Total Protein 7.7, Albumin 3.5, Globulin 4.2, Albumin/Globulin Ratio 0.8 L, Lipase 31 05/30/24 20:05: Urine Color Yellow, Urine Clarity Clear, Urine pH 6.0, Ur Specific [place] 1.010, Urine Protein 15 H, Urine Glucose (UA) Normal, Urine Ketones 15 H, Urine Occult Blood 10 H, Urine Nitrite Negative, Urine Bilirubin Negative, Urine Urobilinogen Normal, Ur Leukocyte Esterase 25 H, Urine RBC 0-5 SEEN, Urine WBC 0-5 SEEN, Ur Squamous Epith Cells 0-5 SEEN, Urine Bacteria 0 SEEN, Urine Mucus 0 SEEN Imaging Radiology Impression Chest/Abdomen/Pelvis CT 05/30/24 16:43 IMPRESSION: No solid organ injury. No fracture or pneumothorax. Mild interstitial edema on the lungs. Right midlung nodule. Follow up recommended according to Fleischner Society guidelines. Colonic diverticulosis. Postoperative change. No obstruction. Abdominal aortic aneurysm. Electronically Signed: Henry Vázquez MD at 18:50 EDT , Brain CT 05/30/24 17:52 IMPRESSION: Chronic involutional changes of the brain. Electronically Signed: Henry Vázquez MD at 18:37 EDT , Assessment & Plan Assessment/Plan (1) Intractable back pain: (2) Back contusion: PLAN: Plan The patient is an 89 y/o M w/ PMHx: PAF, HTN, HLD, Hx SVT, Hx TIA, CAD s/p CABG x 3 MENDOZA-LAD,SVG-D1, 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/2010 w/ Ischemic cardiomyopathy s/p AICD with most recent generator change out 10/2023, CKD stage III unclear subtype per GFR trending who presents to the [facility] ED on 05/30/24 with history of being on a 2 step ladder that unfortunately gave way prompting him to fall landing on his feet on a concrete slab below then falling backward with his back against the concrete with significant pain in his mid back with discomfort taking a deep breath with increase sensation of dyspnea because of this with no pain anywhere else including his chest or abdomen and no paresthesias to his extremities with denial of loss of consciousness or trauma to his head or neck but given ongoing discomfort prompted ED evaluation. #1. Mechanical fall with intractable back pain: Patient per ED report is been cleared as a trauma and family requesting that patient stay and be evaluated for potentially skilled facility, will admit to medical surgical floor, will maintain on fall precautions, frequent positioning, will place lidoacine patches, very judicious low-dose tizanidine, low-dose gabapentin, po/IV narcotic pain regimen, anti-emetics, bowel regimen. Depending on response and especially given fall patient may require follow-up MRI imaging. Creatinine kinase in AM. Will consult PT and OT for evaluation as well as Case management for discharge planning. #2. Hyperglycemia with no diabetic history: Admission glucose 162, possibly stress response, hemoglobin A1c requested to be cautious. #3. Thrombocytopenia, potentially reactive: Admission platelets 144, baseline previously normal, will continue to trend CBC. #4. Chronic Kidney Disease Stage III, unclear subtype per GFR trending: Admission BUN/Cr 41/1.91, GFR 36, baseline renal function 1.6-2.0, repeat BMP in AM. #5. CAD with ischemic cardiomyopathy: Status post CABG x 3 with MENDOZA to LAD, SVG to D1, SVG to LCx 11/2010 as well as AICD with most recent generator change out 10/2023, continue patient home apixaban, Coreg, not on SAMANTHA number/ARB possibly secondary to underlying renal disease, not on statin therapy which we directed outpatient by cardiology. Encourage continued outpatient follow-up as previously arranged #6. PAF: We will continue patient home Coreg and apixaban regimen cautiously given recent fall. #7. Hypertension: Continue home regimen including Coreg, Lasix, PRN hydralazine. #8. Hyperlipidemia: Not on regimen, most recent cardiology note noted 03/25/24, will defer to their services potentially did not tolerate well. #9. History of TIA: We will continue patient home apixaban, hypertensive regimen as noted, not on statin therapy directed by cardiology outpatient, mild hyperglycemia noted with pending A1c. #10. History SVT: We will continue patient home Coreg regimen. #11. DVT prophylaxis: Will cautiously continue patient home apixaban regimen. #12. CODE status: Patient DAMARIS is his and daughter and living will is currently in place. Discussed CODE status at length including difference between FULL code, DNR-CCA and DNR-CC status. Following discussions about the differences in these status, requested Full code but still hesitant and noted that if it did not seem effective and was futile to stop. He and his daughter he notes and have never discussed these items thus encouraged open future discussions. Advanced Care Planning Face to Face Time: 16 minutes. Charges/Coding Visit Charges Inpatient E&M: 00182 Init Hosp L2 Procedures Hospitalists Procedures: 17130 Advncd Care Plan 30 Min
[2024-05-30] MEDS: Morphine 2 MG/ML Syringe IV (22:27)
[2024-05-31] VITALS (13 sets, daily range): BP systolic 95–117; BP diastolic 52–71; PULSE 66–75; RESP 16–24; TEMP 36.3–37.1; O2SAT 91–100; BMI 24.5
[2024-05-31] MEDS: Gabapentin 100 MG Capsule PO (00:11)
[2024-05-31] MEDS: tiZANidine HCl 2 MG Tablet PO ×2 (00:11→22:34)
[2024-05-31] MEDS: 0.9% Normal Saline (1000mL) 1,000 ML 100 ML IV (00:11)
[2024-05-31] MEDS: Acetaminophen 325 MG Tablet 650 MG PO ×3 (05:51→20:08)
[2024-05-31 06:41] LABS: Absolute Lymphocyte Count 1.19 X10^3/uL (0.83-4.51); Absolute Neutrophil Count 8.1 X10^3/uL (2.0-7.7); Basophil# 0.07 X10^3/uL; Basophil% 0.7 % (0-1); Eosinophil# 0.13 X10^3/uL; Eosinophils% 1.3 % (0-5); Hematocrit 38.3 % (40-54); Hemoglobin 12.8 g/dL (13.0-16.5); Lymphocyte # 1.19 X10^3/ul (0.83-4.51); Lymphocyte % 11.6 % (19-41); Mean Corp Hgb Conc 33.4 g/dL (32-36); Mean Corpuscular Hgb 30.3 pg (27.0-32.0); Mean Corpuscular Volume 90.8 fL (80-94); Mean Platelet Vol. 9.1 fl (6.2-12.0); Monocyte# 0.75 X10^3/uL; Monocyte% 7.3 % (0-10); NRBC Flagged by Analyzer 0 % (0-5); Neutrophil # 8.11 X10^3/uL (2.7-7.7); Neutrophil % 78.7 % (47-70); Platelet Count 116 K/mm3 (150-450); RBC Distribution Width CV 13.6 % (11.6-14.6); RBC Distribution Width SD 44.8 fl (35.1-43.9); Red Blood Count 4.22 M/mm3 (4.6-6.2); White Blood Count 10.3 K/mm3 (4.4-11.0)
[2024-05-31 07:28] LABS: ALB/GLOB Ratio 0.8 RATIO (0.9-2.4); AST(SGOT) 31 U/L (15-37); Alanine Aminotransfer ALT/SGPT 34 U/L (16-61); Albumin, Serum 2.9 g/dL (3.2-5.0); Alkaline Phosphatase 53 U/L (45-117); Anion Gap 6 (5-15); BUN 46 mg/dL (7-18); BUN/Creat Ratio 21.3 RATIO (10-20); CPK Total, Creatine Kinase 88 U/L (39-308); Calcium,Total 8.4 mg/dL (8.5-10.1); Chloride 108 mmol/L (98-107); Creatinine, Serum 2.16 mg/dL (0.70-1.30); EST Glomerular Filtration Rate 31 mL/min (>60); Est Glom Filt Rate - Afr Amer 37 mL/min (>60); Estimated Creatinine Clearance 25.18 ml/min; Globulin 3.5 g/dL (2.2-4.2); Glucose 115 mg/dL (74-106); Potassium 4.9 mmol/L (3.5-5.1); Protein, Total 6.4 g/dL (6.4-8.2); Sodium Level 138 mmol/L (136-145)
[2024-05-31 08:28] LABS: Hemoglobin A1c 6.2 % (3.8-5.6)
[2024-05-31] MEDS: APIXABAN 2.5 MG TABLET (WCH) PO ×2 (09:04→22:20)
[2024-05-31] MEDS: Lidocaine 5% Patch 2 PATCH TOPICAL (09:04)
--- NOTE | 2024-05-31 13:37 | PN_ITS ---
Subjective Subjective Patient seen and examined. He had no complaints. Patient was admitted with a complaint of mechanical fall whilst doing some work at home. He was on a 2 step ladder and fell. He landed on his feet then fell backwards and hit his back against the concrete. He denied hitting his head and denied any loss of consciousness. He started having persistent pain in his back to call the EMS. CT of the chest abdomen and pelvis showed no evidence of any acute pathology or fracture. He has been managed for debility due to mechanical fall. Patient had no complaints this morning. His pain was fairly well-controlled. Per his nurse patient had become hypoxic and required oxygen. Patient denies any cough or shortness of breath, palpitations, dizziness, nausea vomiting or any other symptoms. Review of systems otherwise negative. He has remained hemodynamically stable. Objective Data Objective Data Vital Signs: Vital Signs Temp Pulse Resp BP Pulse Ox O2 Del Method O2 Flow Rate 98.1 F 69 18 98/66 93 Nasal Cannula 2 05/31/24 12:50 05/31/24 12:50 05/31/24 12:50 05/31/24 12:50 05/31/24 12:50 05/31/24 12:50 05/31/24 13:18 Oxygen Flow Rate (L/min) 2 Oxygen Delivery Method Nasal Cannula Weight: 175 lb 4.28 oz Body Mass Index (BMI) 24.5 Intake & Output: Intake and Output for Last 24 Hours 05/29/24 05/30/24 05/31/24 23:59 23:59 23:59 Intake Total 700 / 700 Balance 700 / 700 Lab / Micro Data 05/31/24 06:30 05/31/24 06:30 Labs: Laboratory Results - last 24 hr 05/30/24 16:15: WBC 9.5, RBC 4.97, Hgb 14.7, Hct 45.6, MCV 91.8, MCH 29.6, MCHC 32.2, RDW Std Deviation 44.8 H, RDW Coeff of Christiano 13.2, Plt Count 144 L, MPV 9.3, Immature Gran % (Auto) 0.600, Neut % (Auto) 89.3 H, Lymph % (Auto) 6.8 L, [place] % (Auto) 2.8, Eos % (Auto) 0.2, Baso % (Auto) 0.3, Absolute Neuts (auto) 8.5 H, A bsolute Lymphs (auto) 0.65 L, Nucleated RBC % 0, Sodium 139, Potassium 4.4, C hloride 109 H, Carbon Dioxide 27.0, Anion Gap 3 L, BUN 41 H, Creatinine 1.91 H, Estim Creat Clear Calc 27.60, Est GFR (MDRD) Af Amer 43 L, Est GFR (MDRD) Non-Af 36 L, BUN/Creatinine Ratio 21.5 H, Glucose 162 H, Calcium 8.8, Total Bilirubin 1.10 H, AST 52 H, ALT 51, Alkaline Phosphatase 68, Total Protein 7.7, Albumin 3.5, Globulin 4.2, Albumin/Globulin Ratio 0.8 L, Lipase 31 05/30/24 20:05: Urine Color Yellow, Urine Clarity Clear, Urine pH 6.0, Ur Specific [place] 1.010, Urine Protein 15 H, Urine Glucose (UA) Normal, Urine Ketones 15 H, Urine Occult Blood 10 H, Urine Nitrite Negative, Urine Bilirubin Negative, Urine Urobilinogen Normal, Ur Leukocyte Esterase 25 H, Urine RBC 0-5 SEEN, Urine WBC 0-5 SEEN, Ur Squamous Epith Cells 0-5 SEEN, Urine Bacteria 0 SEEN, Urine Mucus 0 SEEN 05/31/24 06:30: WBC 10.3, RBC 4.22 L, Hgb 12.8 L, Hct 38.3 L, MCV 90.8, MCH 30.3, MCHC 33.4, RDW Std Deviation 44.8 H, RDW Coeff of Christiano 13.6, Plt Count 116 L, MPV 9.1, Immature Gran % (Auto) 0.400, Neut % (Auto) 78.7 H, Lymph % (Auto) 11.6 L, [place] % (Auto) 7.3, Eos % (Auto) 1.3, Baso % (Auto) 0.7, Absolute Neuts (auto) 8.1 H, Absolute Lymphs (auto) 1.19, Nucleated RBC % 0, Sodium 138, Potassium 4.9, Chloride 108 H, Carbon Dioxide 23.0, Anion Gap 6, BUN 46 H, C reatinine 2.16 H, Estim Creat Clear Calc 25.18, Est GFR (MDRD) Af Amer 37 L, Est GFR (MDRD) Non-Af 31 L, BUN/Creatinine Ratio 21.3 H, Glucose 115 H, Hemoglobin A1c 6.2 H, Calcium 8.4 L, Total Bilirubin 1.20 H, AST 31, ALT 34, Alkaline Phosphatase 53, Total Creatine Kinase 88, Total Protein 6.4, Albumin 2.9 L, Globulin 3.5, Albumin/Globulin Ratio 0.8 L Radiography Diagnostic Testing: Radiology Impression Chest/Abdomen/Pelvis CT 05/30/24 16:43 IMPRESSION: No solid organ injury. No fracture or pneumothorax. Mild interstitial edema on the lungs. Right midlung nodule. Follow up recommended according to Fleischner Society guidelines. Colonic diverticulosis. Postoperative change. No obstruction. Abdominal aortic aneurysm. Electronically Signed: Henry Vázquez MD at 18:50 EDT , Brain CT 05/30/24 17:52 IMPRESSION: Chronic involutional changes of the brain. Electronically Signed: Henry Vázquez MD at 18:37 EDT , Physical Exam Const alert, oriented x3 and no apparent distress General Appearance: cooperative HEENT normocephalic, head/scalp atraumatic and moist oral mucous membranes Eyes PERRL and EOMs intact bilaterally Neck no lymphadenopathy, supple and no JVD Lymph Lymphatic: no lymphadenopathy noted and no lymphedema noted Resp normal respiratory effort, normal air movement and clear to auscultation bilaterally Cardio regular rate, regular rhythm, S1 normal heart sound, S2 normal heart sound and no murmurs GI normal to inspection, nondistended, normoactive bowel sounds, soft to palpation, non-tender and non-distended Extremity normal capillary refill, no clubbing, cyanosis or edema and no calf tenderness General Extremity: no tenderness to palpation of joints or extremities Skin General Skin Exam: no breakdown Neuro CN's II-XII intact bilaterally, no focal motor deficits, no sensory deficits noted and deep tendon reflexes 2+ bilaterally Motor Exam: strength 5/5 throughout and general weakness Psych thought process normal and cooperative Appearance: appropriate Assessment & Plan Assessment/Plan (1) Intractable back pain: (2) Pleuritic pain: (3) Back contusion: PLAN: Plan #Debility due to mechanical fall with intractable back pain * imaging showed no evidence of any fractures * PT./OT on board. Fall precautions * on PO tylenol, PO oxycodone and IV morphine prn for pain * Also on tizanidine * #Hyperglycemia: * Blood sugars in the 160s on admission. * A1c 6.2 indicating impaired glucose tolerance. * Patient counseled on DASH diet. * Will recommend to advise him on his diet * Hold off starting metformin due to his impaired kidney function #Thrombocytopenia #CAD with ischemic cardiomyopathy * S/p CABG. Also has an ICD in place with the battery being changed in October 2023 * On Coreg. Not on statins. On Eliquis #Paroxysmal A-fib: On Coreg and Eliquis #Hypertension: On Coreg. IV hydralazine as needed #History of TIA: #History of SVT: On Coreg #CKD IIIa: Cr is 2.16. baseline is ~ 1.6, though it has ranged from 1.6-2. WIll monitor. DVT prophylaxis: Eliquis Charges/Coding Visit Charges Inpatient E&M: 12181 Subs Hosp L2
--- NOTE | 2024-05-31 15:04 | CASEMGMT ---
Social Work This SW met with patient regarding his advanced directives. Patient does have a copy of HCPOA on file but no Living Will. Patient states he does have a Living Will completed and will try to get a copy to the hospital to place in his medical record. Romana Zavala, FAMILY SERVICE WORKER, TWISTING FRAME OPERATOR
--- NOTE | 2024-05-31 15:50 | CASEMGMT ---
RN?CM?HANDKERCHIEF MAKER?CM?to room to meet with patient for initial transition planning/care coordination?assessment.?RN?CM?introduced self and role at [facility].? Pt voices understanding and consents to?assessment?at this time.? Pt resting in bed in no distress at this time.? Pt is A/O at this time and answers all questions appropriately.?? Care providers, pharmacy, and demographics verified/updated at this time. PCP: Dr Julio. Pt also goes to [facility]. Specialists: none Preferred Pharmacy: [facility] Insurance: [employer] Prescription Benefit:?yes LNOK: , Rufina. Daughter, Martha Living Arrangements: Lives w/ and daughter in one-story home w/2 steps to enter. Independent @ baseline w/ADL's and manages his own medications. states he sets his own weekl pill box up weekly. and daughter complete home mgnt tasks. Transportation:?Pt states drives self and states no transportation concerns at this time.? and dtr also drive and states dtr will most likely take him home @ discharge. DME: ?Has a cane, but does not use. Does not have a walker and would like to get one @ dc. No home O2. Discussed DME companies and made aware [employer] is affiliated w/[facility]. He states to use [employer] for O2, if needed, and for a walker. Script for walker placed on pt's chart. Physician to sign @ discharge and walker to be provided to pt from [employer] supply. JENNI SIMON discussed home O2 set-up process, should he qualify. He does not have a pulse ox, recommended he get one, made aware of locations one could be purchased, and he states he can afford to buy one. Denies other DME needs. HHC/SNF: No hx of either. Declines need for HHC or OP therapy. Made aware, if he changes his mind once he returns home, to discuss this with his PCP. He voices understanding. He states he currently belongs to [employer] and goes 3 x's/week. He plans to resume doing this, once his back pain improves. Pt wishes to return home and states has no concerns with going home at time of discharge.? PLAN:??Home. Pt to be provided w/walker @ discharge. Follow for possible O2 needs. Green sheet on chart w/instructions. DGiauque BSN?RN?CM
--- NOTE | 2024-05-31 16:44 | CASEMGMT ---
Met with patient to complete OLIVIER form. OLIVIER form explained to patient who voiced understanding and signed form. Original form placed in pt?s chart and copy provided to patient. Yanira Fine, Discharge Planning Asst
[2024-05-31] MEDS: Furosemide 20 MG/2 ML VIAL IV (20:14)
[2024-05-31] MEDS: Albuterol 2.5 MG/3 ML VIAL.NEB. INHALATION (20:48)
[2024-06-01] VITALS (11 sets, daily range): BP systolic 94–113; BP diastolic 56–68; PULSE 70–74; RESP 18–24; TEMP 36.5–36.9; O2SAT 89–97; BMI 25.1
[2024-06-01] MEDS: Acetaminophen 325 MG Tablet 650 MG PO ×2 (04:26→18:45)
[2024-06-01] MEDS: oxyCODONE 5 MG Tablet PO ×2 (04:27→21:14)
[2024-06-01] MEDS: Lidocaine 5% Patch 2 PATCH TOPICAL (05:16)
[2024-06-01 05:40] LABS: Absolute Lymphocyte Count 1.31 X10^3/uL (0.83-4.51); Absolute Neutrophil Count 6.3 X10^3/uL (2.0-7.7); Basophil# 0.07 X10^3/uL; Basophil% 0.8 % (0-1); Eosinophil# 0.39 X10^3/uL; Eosinophils% 4.3 % (0-5); Hematocrit 40.5 % (40-54); Lymphocyte # 1.31 X10^3/ul (0.83-4.51); Lymphocyte % 14.6 % (19-41); Mean Corp Hgb Conc 32.1 g/dL (32-36); Mean Corpuscular Hgb 29.7 pg (27.0-32.0); Mean Corpuscular Volume 92.7 fL (80-94); Mean Platelet Vol. 9.3 fl (6.2-12.0); Monocyte# 0.86 X10^3/uL; Monocyte% 9.6 % (0-10); NRBC Flagged by Analyzer 0 % (0-5); Neutrophil # 6.34 X10^3/uL (2.7-7.7); Neutrophil % 70.4 % (47-70); Platelet Count 111 K/mm3 (150-450); RBC Distribution Width CV 13.6 % (11.6-14.6); RBC Distribution Width SD 46.6 fl (35.1-43.9); Red Blood Count 4.37 M/mm3 (4.6-6.2)
[2024-06-01 06:02] LABS: Anion Gap 5 (5-15); BUN 55 mg/dL (7-18); BUN/Creat Ratio 22.6 RATIO (10-20); Calcium,Total 8.7 mg/dL (8.5-10.1); Chloride 105 mmol/L (98-107); Creatinine, Serum 2.43 mg/dL (0.70-1.30); EST Glomerular Filtration Rate 27 mL/min (>60); Est Glom Filt Rate - Afr Amer 33 mL/min (>60); Estimated Creatinine Clearance 22.38 ml/min; Glucose 113 mg/dL (74-106); Potassium 4.5 mmol/L (3.5-5.1); Sodium Level 135 mmol/L (136-145)
--- NOTE | 2024-06-01 07:29 | US_ITS ---
INDICATION: MARY ANN EXAMINATION: Ultrasound US Kidney(s) complete (eg, kidneys and bladder) TECHNIQUE: Escalante scale and color doppler images were obtained of the kidneys. COMPARISON: FINDINGS: RIGHT KIDNEY: 8.9 x 4.4 x 4.5 cm. The cortex is 13 mm. There is no hydronephrosis. No shadowing calculus or perinephric collection is demonstrated. There are cysts noted ranging from 8 mm to 23 mm. LEFT KIDNEY: 9.4 x 5.4 x 5.5 cm.. The cortex is 13 mm. There is no hydronephrosis. No shadowing calculus or perinephric collection is demonstrated. There are cysts ranging from 2.9 to 6.4 cm. URINARY BLADDER: No acute abnormality. US/Kidney and Bladder IMPRESSION: Bilateral renal cysts. Electronically Signed: Krishna Reed DO at 15:34 EDT ,
--- NOTE | 2024-06-01 08:44 | RAD_ITS ---
INDICATION: hypoxia, persistent shortness of breath EXAMINATION/TECHNIQUE: X-RAY - XR Chest 1 View COMPARISON: Prior study dated: 09/25/2023 FINDINGS: LINES/DEVICES: Left-sided dual-chamber cardiac pacer device in stable position. LUNGS: No consolidation, edema or effusion. No pneumothorax. MEDIASTINUM AND CARDIOVASCULAR STRUCTURES: Mild enlargement of the cardiac silhouette. Status post median sternotomy. BONES AND SOFT TISSUES: No demonstrated acute osseous changes. RAD/Chest 1 View (Portable) IMPRESSION: Mild enlargement of cardiac silhouette. No new infiltrate is seen. Electronically Signed: Bernard Oscar MD at 10:45 EDT ,
[2024-06-01 08:55] LABS: Urea Nitrogen, Urine 819 mg/dL (NO RANGE EST.)
--- NOTE | 2024-06-01 08:57 | ECHOCS_ITS ---
Version 2 Reason For Study: CONGESTIVE HEART FAILURE Procedure This was a 2D Doppler, Color Flow transthoracic echocardiogram. Contrast injection was performed. Exam performed portable in patient room. Left Ventricle Normal LV size. The left ventricular ejection fraction is 25 %. There are regional wall motion abnormalities as specified. Right Ventricle Normal RV size. ICD or pacer leads identified within the right ventricle. Normal systolic function. Atria The left atrium is mildly enlarged. Normal right atrium. Mitral Valve Normal mitral valve. Mild (1+) eccentric mitral valve insufficiency. Tricuspid Valve Normal tricuspid valve. Mild to moderate (1-2+) tricuspid valve insufficiency. Pulmonary artery systolic pressure is 50 mmHg. Aortic Valve Trisinus/trileaflet aortic valve. Mild focal aortic valve calcification. Great Vessels Mildly dilated aortic root. The pulmonary artery is normal size. Inferior vena cava collapse with respiration. Pericardium/Pleural No pericardial effusion. Medication Diluted definity 3ml given slow IV push to enhance endocardial definition. MMode/2D Measurements & Calculations LVIDd: 4.9 cm IVSd: 1.9 cm LVOT diam: 2.5 cm LVIDs: 4.3 cm LVPWd: 0.93 cm LVOT area: 4.8 cm2 RVDd: 4.7 cm FS: 11.8 % asc Aorta Diam: 3.8 cm LAV(MOD-bp): 85.4 ml LVAd ap4: 39.8 cm2 LAV(MOD-bp) Indexed: 42.4 ml/m2 LVLd ap4: 7.8 cm LAV(MOD-sp2): 94.8 ml EDV(MOD-sp4): 160.7 ml LAV(MOD-sp4): 71.3 ml EDV(sp4-el): 171.9 ml LVAs ap4: 31.1 cm2 LVLs ap4: 7.1 cm ESV(MOD-sp4): 109.7 ml ESV(sp4-el): 115.5 ml EF(MOD-sp4): 31.7 % EF(sp4-el): 32.8 % LVAd ap2: 34.6 cm2 SV(MOD-sp4): 51.0 ml SV(MOD-sp2): 38.9 ml LVLd ap2: 7.3 cm EDV(MOD-sp2): 135.6 ml EDV(sp2-el): 139.6 ml LVAs ap2: 26.7 cm2 LVLs ap2: 6.1 cm ESV(MOD-sp2): 96.8 ml ESV(sp2-el): 99.3 ml EF(MOD-sp2): 28.7 % SV(sp4-el): 56.5 ml Ao sinus diam: 4.[address] Junction: 3.0 cm LA dimension(2D): 5.4 cm LA A4 area: 24.2 cm2 RA A4 area: 20.2 cm2 TAPSE: 1.6 cm Time Measurements MV dec time: 0.12 sec Doppler Measurements & Calculations MV E max avni: 100.4 cm/sec Lat Peak E' Avni: 10.8 cm/sec Med Peak E' Avni: 4.8 cm/sec E/E' lat: 9.3 E/E' med: 20.8 Ao V2 max: 147.1 cm/sec LV V1 max: 77.4 cm/sec SV(LVOT): 65.6 ml Ao max P.6 mmHg LV V1 max P.4 mmHg Ao V2 mean: 100.9 cm/sec LV V1 mean P.3 mmHg Ao mean P.7 mmHg LV V1 mean: 52.6 cm/sec Ao V2 VTI: 25.9 cm LV V1 VTI: 13.7 cm AV (velocity ratio): 0.53 CAROLYN(I,D): 2.5 cm2 CAROLYN(V,D): 2.5 cm2 PA V2 max: 72.0 cm/sec PI end-d avni: 157.9 cm/sec TR max avni: 339.7 cm/sec PA max PG (full): 1.4 mmHg TR max P.2 mmHg ECHO/Echo Complete W/ Contrast Interpretation Summary Dilated LV with severe LV dysfucntion Normal RV finction with lead TR moderate The left ventricular ejection fraction is 25 %. Normal LV size. The left atrium is mildly enlarged. Pulmonary artery systolic pressure is 50 mmHg. Ordering Physician: Angela Engle Performed By: Keren Case RDCS
[2024-06-01] MEDS: APIXABAN 2.5 MG TABLET (WCH) PO ×2 (10:53→21:11)
--- NOTE | 2024-06-01 15:40 | PN_ITS ---
Subjective Subjective Patient seen and examined. He had no complaints today. He had an uneventful night. He denied any shortness of breath. He was on 4 L of oxygen at time I reviewed him this morning. Review of systems otherwise negative. Objective Data Objective Data Vital Signs: Vital Signs Temp Pulse Resp BP Pulse Ox O2 Del Method O2 Flow Rate 98.5 F 70 18 94/61 95 Room Air 4 06/01/24 10:51 06/01/24 10:51 06/01/24 10:51 06/01/24 10:51 06/01/24 10:51 06/01/24 10:51 06/01/24 06:49 Oxygen Flow Rate (L/min) 4 Oxygen Delivery Method Room Air Weight: 179 lb 10.828 oz Body Mass Index (BMI) 25.1 Intake & Output: Intake and Output for Last 24 Hours 05/30/24 05/31/24 06/01/24 23:59 23:59 23:59 Intake Total 700 / 700 350 / 350 Output Total 300 / 300 Balance 700 / 700 50 / 50 Lab / Micro Data 06/01/24 04:45 06/01/24 04:45 Labs: Laboratory Results - last 24 hr 05/31/24 06:30: B-Natriuretic Peptide Cancelled 05/31/24 06:30: B-Natriuretic Peptide 384.0 H 06/01/24 04:45: WBC 9.0, RBC 4.37 L, Hgb 13.0, Hct 40.5, MCV 92.7, MCH 29.7, MCHC 32.1, RDW Std Deviation 46.6 H, RDW Coeff of Christiano 13.6, Plt Count 111 L, MPV 9.3, Immature Gran % (Auto) 0.300, Neut % (Auto) 70.4 H, Lymph % (Auto) 14.6 L, [place] % (Auto) 9.6, Eos % (Auto) 4.3, Baso % (Auto) 0.8, Absolute Neuts (auto) 6.3, Absolute Lymphs (auto) 1.31, Nucleated RBC % 0, Sodium 135 L, Potassium 4.5, Chloride 105, Carbon Dioxide 25.0, Anion Gap 5, BUN 55 H, Creatinine 2.43 H , Estim Creat Clear Calc 22.38, Est GFR (MDRD) Af Amer 33 L, Est GFR (MDRD) Non- Af 27 L, BUN/Creatinine Ratio 22.6 H, Glucose 113 H, Calcium 8.7 06/01/24 07:45: Urine Creatinine 117.00, Urine Urea Nitrogen 819 Radiography Diagnostic Testing: Radiology Impression Chest X-Ray 06/01/24 08:44 IMPRESSION: Mild enlargement of cardiac silhouette. No new infiltrate is seen. Electronically Signed: Bernard Oscar MD at 10:45 EDT , Echocardiogram 06/01/24 08:57 Interpretation Summary Dilated LV with severe LV dysfucntion EF 15% Normal RV finction with lead TR moderate Dilated LA Ordering Physician: Angela Engle Performed By: Keren Case RDCS Physical Exam Const alert, oriented x3 and no apparent distress General Appearance: cooperative HEENT normocephalic, head/scalp atraumatic and moist oral mucous membranes Eyes PERRL and EOMs intact bilaterally Neck no lymphadenopathy, supple and no JVD Lymph Lymphatic: no lymphadenopathy noted and no lymphedema noted Resp Resp Narrative: diminished breath sounds bibasally, no wheezes or crackles. Was on 4L of oxygen but weaned down to room air. Cardio regular rate, regular rhythm, S1 normal heart sound, S2 normal heart sound and no murmurs GI normal to inspection, nondistended, normoactive bowel sounds, soft to palpation, non-tender and non-distended Extremity normal capillary refill, no clubbing, cyanosis or edema and no calf tenderness General Extremity: no tenderness to palpation of joints or extremities Skin General Skin Exam: no breakdown Neuro CN's II-XII intact bilaterally, no focal motor deficits, no sensory deficits noted and deep tendon reflexes 2+ bilaterally Motor Exam: strength 5/5 throughout and general weakness Psych thought process normal and cooperative Appearance: appropriate Assessment & Plan Assessment/Plan (1) Intractable back pain: (2) Pleuritic pain: (3) Back contusion: PLAN: Plan #Debility due to mechanical fall with intractable back pain * imaging showed no evidence of any fractures * PT./OT on board. Fall precautions * on PO tylenol, PO oxycodone and IV morphine prn for pain * Also on tizanidine * #Hyperglycemia: * Blood sugars in the 160s on admission. * A1c 6.2 indicating impaired glucose tolerance. * Patient counseled on DASH diet. * Will recommend to advise him on his diet * Hold off starting metformin due to his impaired kidney function #Hypoxia due to acute on chronic HFrEF * Patient was requiring 4 L of oxygen. * Now weaned down to room air. * Has known EF of 25%. Repeat 2D echo done showed EF had reduced to 15%. * In light of his debilitated state and worsening kidney function, I am unable to diurese him. * He is now on room air. Resume diuresis once kidney function improves. * #Thrombocytopenia * Platelets at 111 today. Was 114 on admission. Will monitor closely. * #MARY ANN on CKD IIIa: * Cr is up to 2.43 today. * Was 2.1 yesterday. Baseline is ~ 1.6, though it has ranged from 1.6-2. * Unable to hydrate with IVF due to heart failure. * If Cr continues to trend upwards, will consult nephrology consult. * renal USG ordered #CAD with ischemic cardiomyopathy * S/p CABG. Also has an ICD in place with the battery being changed in October 2023 * On Coreg. Not on statins. On Eliquis #Paroxysmal A-fib: On Coreg and Eliquis #Hypertension: On Coreg. IV hydralazine as needed #History of TIA: #History of SVT: On Coreg DVT prophylaxis: Eliquis Charges/Coding Visit Charges Inpatient E&M: 00925 Subs Hosp L2
[2024-06-01] MEDS: Gabapentin 100 MG Capsule PO (18:45)
[2024-06-01] MEDS: 0.9% Saline Lock 10 ML Syringe IV (21:14)
[2024-06-02] VITALS (9 sets, daily range): BP systolic 107–148; BP diastolic 58–76; PULSE 70–87; RESP 18–20; TEMP 36.5–36.9; O2SAT 87–98; BMI 25.4
[2024-06-02 07:24] LABS: Absolute Lymphocyte Count 1.08 X10^3/uL (0.83-4.51); Absolute Neutrophil Count 5.4 X10^3/uL (2.0-7.7); Basophil# 0.06 X10^3/uL; Basophil% 0.8 % (0-1); Eosinophil# 0.38 X10^3/uL; Eosinophils% 4.8 % (0-5); Hematocrit 36.9 % (40-54); Hemoglobin 11.8 g/dL (13.0-16.5); Lymphocyte # 1.08 X10^3/ul (0.83-4.51); Lymphocyte % 13.7 % (19-41); Mean Corpuscular Hgb 29.3 pg (27.0-32.0); Mean Corpuscular Volume 91.6 fL (80-94); Mean Platelet Vol. 9.7 fl (6.2-12.0); Monocyte# 0.93 X10^3/uL; Monocyte% 11.8 % (0-10); NRBC Flagged by Analyzer 0 % (0-5); Neutrophil # 5.44 X10^3/uL (2.7-7.7); Neutrophil % 68.6 % (47-70); Platelet Count 103 K/mm3 (150-450); RBC Distribution Width CV 13.4 % (11.6-14.6); Red Blood Count 4.03 M/mm3 (4.6-6.2); White Blood Count 7.9 K/mm3 (4.4-11.0)
[2024-06-02 07:45] LABS: Anion Gap 6 (5-15); BUN 45 mg/dL (7-18); BUN/Creat Ratio 23.9 RATIO (10-20); Calcium,Total 8.4 mg/dL (8.5-10.1); Chloride 105 mmol/L (98-107); Creatinine, Serum 1.88 mg/dL (0.70-1.30); EST Glomerular Filtration Rate 36 mL/min (>60); Est Glom Filt Rate - Afr Amer 44 mL/min (>60); Estimated Creatinine Clearance 28.93 ml/min; Glucose 100 mg/dL (74-106); Potassium 4.3 mmol/L (3.5-5.1); Sodium Level 136 mmol/L (136-145)
[2024-06-02] MEDS: Lidocaine 5% Patch 2 PATCH TOPICAL (09:34)
[2024-06-02] MEDS: Gabapentin 100 MG Capsule PO ×3 (09:34→17:45)
[2024-06-02] MEDS: APIXABAN 2.5 MG TABLET (WCH) PO ×2 (09:34→22:26)
--- NOTE | 2024-06-02 14:43 | PN_ITS ---
Subjective Subjective Patient seen and examined. He said he felt well today. He had no active complaints and review of systems otherwise negative. I was hoping to discharge patient today he was down to just 1 L of oxygen this morning. However he did have walking pulse ox and required up to 4 L of oxygen before he could get up to just about 92%. His Lasix has been on hold because of his worsening kidney function and his EF has gone down to 15% so I suspect the patient may be a bit fluid overloaded. I will keep patient today and diurese him overnight to see if his oxygen requirements go down. Objective Data Objective Data Vital Signs: Vital Signs Temp Pulse Resp BP Pulse Ox O2 Del Method O2 Flow Rate 97.7 F L 82 20 H 107/64 95 Nasal Cannula 2 06/02/24 09:08 06/02/24 09:08 06/02/24 09:08 06/02/24 09:08 06/02/24 10:45 06/02/24 09:30 06/02/24 10:45 Oxygen Flow Rate (L/min) [ 4 AMBULATING with Oxygen #3] Oxygen Flow Rate (L/min) [ 3 AMBULATING with Oxygen #2] Oxygen Flow Rate (L/min) [ 2 AMBULATING with Oxygen #1] Oxygen Flow Rate (L/min) 2 Oxygen Delivery Method Nasal Cannula Weight: 181 lb 10.574 oz Body Mass Index (BMI) 25.4 Intake & Output: Intake and Output for Last 24 Hours 05/31/24 06/01/24 06/02/24 23:59 23:59 23:59 Intake Total 700 / 700 750 / 750 Output Total 500 / 500 Balance 700 / 700 250 / 250 Lab / Micro Data 06/02/24 06:17 06/02/24 06:17 Labs: Laboratory Results - last 24 hr 06/02/24 06:17: WBC 7.9, RBC 4.03 L, Hgb 11.8 L, Hct 36.9 L, MCV 91.6, MCH 29.3, MCHC 32.0, RDW Std Deviation 46.0 H, RDW Coeff of Christiano 13.4, Plt Count 103 L, MPV 9.7, Immature Gran % (Auto) 0.300, Neut % (Auto) 68.6, Lymph % (Auto) 13.7 L, M jaycee % (Auto) 11.8 H, Eos % (Auto) 4.8, Baso % (Auto) 0.8, Absolute Neuts (auto) 5.4, Absolute Lymphs (auto) 1.08, Nucleated RBC % 0, Sodium 136, Potassium 4.3, Chloride 105, Carbon Dioxide 25.0, Anion Gap 6, BUN 45 H, Creatinine 1.88 H, Estim Creat Clear Calc 28.93, Est GFR (MDRD) Af Amer 44 L, Est GFR (MDRD) Non-Af 36 L, BUN/Creatinine Ratio 23.9 H, Glucose 100, Calcium 8.4 L Physical Exam Const alert, oriented x3 and no apparent distress General Appearance: cooperative HEENT normocephalic, head/scalp atraumatic and moist oral mucous membranes Eyes PERRL and EOMs intact bilaterally Neck no lymphadenopathy, supple and no JVD Lymph Lymphatic: no lymphadenopathy noted and no lymphedema noted Resp Resp Narrative: diminished breath sounds bibasally, no wheezes or crackles. Was on 1L of oxygen but weaned down to room air. Cardio regular rate, regular rhythm, S1 normal heart sound, S2 normal heart sound and no murmurs GI normal to inspection, nondistended, normoactive bowel sounds, soft to palpation, non-tender and non-distended Extremity normal capillary refill, no clubbing, cyanosis or edema and no calf tenderness General Extremity: no tenderness to palpation of joints or extremities Skin General Skin Exam: no breakdown Neuro CN's II-XII intact bilaterally, no focal motor deficits, no sensory deficits noted and deep tendon reflexes 2+ bilaterally Motor Exam: strength 5/5 throughout and general weakness Psych thought process normal and cooperative Appearance: appropriate Assessment & Plan Assessment/Plan (1) Intractable back pain: (2) Pleuritic pain: (3) Back contusion: PLAN: Plan #Debility due to mechanical fall with intractable back pain * imaging showed no evidence of any fractures * PT./OT on board. Fall precautions * on PO tylenol, PO oxycodone and IV morphine prn for pain * Also on tizanidine * #Hyperglycemia: * Blood sugars in the 160s on admission. * A1c 6.2 indicating impaired glucose tolerance. * Patient counseled on DASH diet. * Will recommend to advise him on his diet * Hold off starting metformin due to his impaired kidney function #Hypoxia due to acute on chronic HFrEF * Patient was down to 1 L of oxygen but with walking he required 4 L of oxygen. * Patient does not wear any oxygen at home. * Kidney function is improving creatinine is down to 1.88 which is his baseline. Will diurese with IV Lasix today to see if his oxygen requirements will improve by tomorrow then he can be discharged home. * Has known EF of 25%. Repeat 2D echo done showed EF had reduced to 15%. * Breathing treatments bronchodilators. * #Thrombocytopenia * Platelets at 111 today. Was 114 on admission. Will monitor closely. * #MARY ANN on CKD IIIa: * Resolving. Creatinine is down to 1.88 today. This is around his baseline. * Renal ultrasound done. Read is pending. #CAD with ischemic cardiomyopathy * S/p CABG. Also has an ICD in place with the battery being changed in October 2023 * On Coreg. Not on statins. On Eliquis #Paroxysmal A-fib: On Coreg and Eliquis #Hypertension: On Coreg. IV hydralazine as needed #History of SVT: On Coreg DVT prophylaxis: Eliquis Disposition: Patient could not be discharged today due to his persistently increased oxygen requirements. Anticipates that now we have been able to resume diuresis as kidney function has improved, he likely will be discharged home over the next 24 to 48 hours. He may likely require oxygen on discharge Charges/Coding Visit Charges Inpatient E&M: 97818 Subs Hosp L2
[2024-06-02] MEDS: 0.9% Saline Lock 10 ML Syringe IV (16:09)
[2024-06-02] MEDS: Furosemide 40 MG/4 ML Vial IV (16:09)
[2024-06-02] MEDS: Acetaminophen 325 MG Tablet 650 MG PO (22:24)
[2024-06-02] MEDS: tiZANidine HCl 2 MG Tablet PO (22:25)
[2024-06-02] MEDS: oxyCODONE 5 MG Tablet PO (22:25)
[2024-06-03 04:19] VITALS: BMI 24.3
[2024-06-03 05:58] VITALS: BP 108/74; PULSE 70; RESP 18; TEMP 36.5; O2SAT 93
[2024-06-03 07:21] LABS: Absolute Lymphocyte Count 1.41 X10^3/uL (0.83-4.51); Absolute Neutrophil Count 3.2 X10^3/uL (2.0-7.7); Basophil# 0.06 X10^3/uL; Eosinophil# 0.35 X10^3/uL; Eosinophils% 5.8 % (0-5); Hematocrit 36.4 % (40-54); Hemoglobin 11.8 g/dL (13.0-16.5); Lymphocyte # 1.41 X10^3/ul (0.83-4.51); Lymphocyte % 23.3 % (19-41); Mean Corp Hgb Conc 32.4 g/dL (32-36); Mean Corpuscular Hgb 29.5 pg (27.0-32.0); Mean Platelet Vol. 9.6 fl (6.2-12.0); Monocyte# 1.06 X10^3/uL; Monocyte% 17.5 % (0-10); NRBC Flagged by Analyzer 0 % (0-5); Neutrophil # 3.16 X10^3/uL (2.7-7.7); Neutrophil % 52.1 % (47-70); Platelet Count 107 K/mm3 (150-450); RBC Distribution Width CV 13.4 % (11.6-14.6); RBC Distribution Width SD 45.4 fl (35.1-43.9); White Blood Count 6.1 K/mm3 (4.4-11.0)
[2024-06-03 07:39] VITALS: O2SAT 91
[2024-06-03 08:05] LABS: Anion Gap 9 (5-15); BUN 47 mg/dL (7-18); BUN/Creat Ratio 24.7 RATIO (10-20); Calcium,Total 8.6 mg/dL (8.5-10.1); Chloride 106 mmol/L (98-107); EST Glomerular Filtration Rate 36 mL/min (>60); Est Glom Filt Rate - Afr Amer 43 mL/min (>60); Estimated Creatinine Clearance 28.62 ml/min; Glucose 91 mg/dL (74-106); Potassium 3.9 mmol/L (3.5-5.1); Sodium Level 138 mmol/L (136-145)
[2024-06-03] MEDS: Gabapentin 100 MG Capsule PO ×2 (09:21→12:18)
[2024-06-03] MEDS: Lidocaine 5% Patch 2 PATCH TOPICAL (09:22)
[2024-06-03] MEDS: Furosemide 20 MG Tablet PO (09:22)
[2024-06-03] MEDS: APIXABAN 2.5 MG TABLET (WCH) PO (09:22)
[2024-06-03 10:00] VITALS: BP 104/69; PULSE 79; RESP 18; TEMP 36.9; O2SAT 93
[2024-06-03 11:10] LABS: BNP,B-Type NATRIURETIC PEPTIDE 532.8 pg/mL (0-100)
--- NOTE | 2024-06-03 12:39 | CASEMGMT ---
Addendum entered by Syed Mims 06/03/24 15:05: Per the medical secretary, the pt did not qualify for home oxygen. Addendum entered by Syed Mims 06/03/24 15:05: Pt has an order for DC placed. JENNI SIMON to pt room at this time. The FWW was delivered by [employer]. Pt denies further needs at this time and states that he is projected to leave today after he voids. Original Note: Dr. Carrera states that the pt may DC today, contingent on the pt oxygen needs. JENNI SIMON to pt room. Pt states that he is still interested in a walker. Rx signed by Dr. Carrera an referral sent to [facility] [place] via [facility] at this time. Pt denies further concerns and states that he feels safe discharging today (or tomorrow) with the continuation of OP Tx and assistance from the pt and daughter at home. CM to continue to follow.
[2024-06-03 13:34] VITALS: O2SAT 90; O2SAT 94
--- NOTE | 2024-06-03 14:39 | PCM.DC.SUM ---
Providers Date of Admission: 06/02/24 Date of Discharge: 06/03/24 Primary Care Physician: Dr. Aroldo Julio MD Reason For Visit: FALL, INTRACTABLE BACK PAIN, DEBILITY Diagnosis Discharge Diagnosis (1) Intractable back pain: Status: Acute Code(s): M54.9 - Dorsalgia, unspecified (2) Pleuritic pain: Status: Acute Code(s): R07.81 - Pleurodynia (3) Back contusion: Status: Acute Code(s): S20.229A - Contusion of unspecified back wall of thorax, initial encounter Medications at Discharge Home Medications cholecalciferol (vitamin D3) 25 mcg (1,000 unit) capsule 25 mcg PO DAILY VITAMIN SUPPLEMENT 12/19/19 apixaban 2.5 mg tablet (Eliquis) 2.5 mg PO BID BLOOD THINNER 05/07/21 acetaminophen 500 mg tablet (Acetaminophen Extra Strength) 1,000 mg (2 x 500 mg) PO Q8H #1 TAB 06/03/24 carvedilol 3.125 mg tablet (Coreg) 3.125 mg PO BID #60 tabs 06/03/24 furosemide 20 mg tablet 20 mg PO DAILY #30 tabs 06/03/24 lidocaine 5 % topical patch 2 patch topical DAILY #30 ea 06/03/24 oxycodone 5 mg tablet 5 mg PO Q4H PRN PRN Pain Score 4-10 5 days #30 tabs 06/03/24 tizanidine 2 mg tablet 2 mg PO Q8H PRN PRN Muscle spasm/strain 5 days #15 tabs 06/03/24 Hospital Course Procedures 2-D Echocardiogram, EKG and - (CT chest abdomen and pelvis/CT brain/renal ultrasound/chest x-ray) Summary of Care Provided Minutes Spent on Discharge: 40 Hospital Course: Mr. Koehler is an 81-year-old white male who presented to the emergency department [facility] on 05/30/2020 for with intractable back pain after a fall. The patient was about 2 steps up on a ladder and it gave way which resulted in him falling. He landed on his feet initially on concrete and then fell backwards with his back against the concrete. He was complaining of pain in the mid back that was pleuritic and making him feel short of breath however he was not significantly hypoxic on presentation. He denied any radicular symptoms and denied hitting his head on presentation. He did admit to being on Eliquis at baseline for history of atrial fibrillation. He was also noted to be hypoxic on presentation which is not his norm. He is not oxygen dependent at baseline and his sats were 87% on 2 L nasal cannula. Other vital signs were overtly unremarkable. He does have a known history of ischemic cardiomyopathy with an EF previously noted to be 25% and unable to be on full goal-directed therapy due to ongoing chronic relative hypotension. At baseline he was only taking Coreg 6.25 mg daily and Lasix every other day. With regards to his pain a CT chest abdomen pelvis was performed and no acute findings were noted. He also had a renal ultrasound for his CKD which was stable with no acute findings. Labs on presentation were at his baseline with no acute abnormalities. Renal function at baseline seems to fluctuate between 1.9 and 2.3. On presentation he was 2.16. BNP as noted was found to be elevated at 384. Chest x-ray was performed due to mild hypoxia with no new infiltrate identified and mild enlargement of the silhouette. CT of the brain was unremarkable. He was placed on a pain regimen to include lidocaine patch, Tylenol, as needed oxycodone, muscle relaxants, and low-dose gabapentin. His pain was much better at the time of discharge and we continue the Tylenol, lidocaine patch, and as needed muscle relaxants but discontinue the gabapentin. I will have him follow-up with pain management as an outpatient if needed for ongoing pain. With regards to his hypoxia I suspect he has some baseline volume overload. His hypoxia did improve throughout his hospital course and he required no oxygen with rest or exertion at the time of discharge. We did increase his Lasix from 20 mg daily to 20 mg twice daily and decreased his Coreg dose from 6.25-3.125 at discharge to attenuate his blood pressure issues. I have asked him to weigh himself on a daily basis without clothes on in the morning at home and keep track of this. If he gains more than 2 to 3 pounds in 24 hours. He is to take an extra dose of his Lasix and call the director of business operations office. We did obtain a 2D echo during his hospital course and this showed an EF of 50% with a dilated LV and severe diffuse LV dysfunction, normal RV, moderate TR and a dilated left atrium. We have set up a follow-up appointment with cardiology in early July and have asked that he follow-up with his primary care physician within the next week or 2 for hospital follow-up. He will need a basic metabolic profile at discharge to reassess medication changes. Overall his EF is extremely poor and he likely would qualify for hospice if clinically he is not able to tolerate the above or decompensates further. Since he is clinically stable at this time, I will leave that conversation to his outpatient primary care physician and/or cardiology at follow-up. Discharge diagnoses: Intractable mid back pain-resolving Hypoxia-resolved Acute on chronic decompensated heart failure with reduced ejection fraction-acuity resolved -Patient does have ICD/pacer CKD stage IV Thrombocytopenia Pulmonary chronic supply granuloma Degenerative disc disease Renal cysts bilateral Persistent atrial fibrillation Coronary artery disease status post CABG Osteoarthritis History of TIA Ischemic cardiomyopathy Physical Exam Const alert, oriented x3, no apparent distress, average body habitus, no limitations and well nourished; Negative for healthy appearing Constitutional Narrative: Elderly, very pleasant, white male, sitting up in bed, appears comfortable, nontoxic General Appearance: cooperative, comfortable, well kempt and well developed Orientation / Consciousness: awake, oriented to person, oriented to place and oriented to time Exam Limitations: no limitations HEENT normocephalic, head/scalp atraumatic and moist oral mucous membranes; Negative for hearing grossly normal bilaterally HEENT Narrative: Mallampati 2, no thrush, moderate hearing loss Eyes EOMs intact bilaterally and conjunctivae normal Eyes Narrative: No scleral icterus Neck no lymphadenopathy and supple Neck Narrative: Trachea midline, no thyroid enlargement, neck veins are flat Resp normal respiratory effort, no retractions, no use of accessory muscles and clear to auscultation bilaterally Auscultation: Negative for rales, rhonchi or wheezes Cardio regular rate, S1 normal heart sound, S2 normal heart sound, no murmurs, no rub, no gallops and no clicks Cardio Narrative: Rhythm is irregularly irregular but rate controlled GI normal to inspection, nondistended, normoactive bowel sounds, soft to palpation and non-tender Extremity no clubbing, cyanosis or edema Extremity Narrative: Radial and pedal pulses are 2+ bilaterally Skin no wounds, skin turgor normal and no jaundice Neuro oriented x3, moves all extremities and no focal motor deficits Speech: speech normal Psych affect normal Psych Narrative: Extremely pleasant, interacts appropriately, eye contact is good Weight / BMI Weight Weight: 78.9 kg Body Mass Index (BMI) 24.3 ABG / Lab / Microbiology Data 06/03/24 06:25 06/03/24 06:25 Laboratory: Laboratory Results - last 24 hr 06/03/24 06:25: WBC 6.1, RBC 4.00 L, Hgb 11.8 L, Hct 36.4 L, MCV 91.0, MCH 29.5, MCHC 32.4, RDW Std Deviation 45.4 H, RDW Coeff of [place] 13.4, Plt Count 107 L, MPV 9.6, Immature Gran % (Auto) 0.300, Neut % (Auto) 52.1, Lymph % (Auto) 23.3, [place] % (Auto) 17.5 H, Eos % (Auto) 5.8 H, Baso % (Auto) 1.0, Absolute Neuts (auto) 3.2, Absolute Lymphs (auto) 1.41, Nucleated RBC % 0, Sodium 138, Potassium 3.9, Chloride 106, Carbon Dioxide 24.0, Anion Gap 9, BUN 47 H, Creatinine 1.90 H, Estim Creat Clear Calc 28.62, Est GFR (MDRD) Af Amer 43 L, Est GFR (MDRD) Non-Af 36 L, BUN/Creatinine Ratio 24.7 H, Glucose 91, Calcium 8.6, B-Natriuretic Peptide 532.8 H Radiography Diagnostic Testing: Radiology Impression Renal Ultrasound 06/01/24 07:29 IMPRESSION: Bilateral renal cysts. Electronically Signed: Krishna Reed DO at 15:34 EDT Reading Location ID and State: [address] [place] [address] Tel [phone], Service support , Meaningful Use Info Meaningful Use Meaningful Use Diagnoses (Choose all that apply): CHF CHF SAMANTHA/ARB ordered at discharge?: No Reason SAMANTHA/ARB not ordered?: Hypotension Documented LVEF (%): 15 Ischemic Stroke Statin Dosing Therapy Reference: STATIN DOSE THERAPY REFERENCE: * Patients > 75 years receive moderate or high dose statin therapy. * Patients 75 years or YOUNGER should receive HIGH intensity statin dose unless contraindicated. You will be required to document reason for non-treatment if statin daily dose does not meet guidelines. HIGH DOSE STATIN THERAPY DAILY Atorvastatin > than or = to 40 mg Rosuvastatin > than or = to 20 mg Amlodipine + Atorvastatin > than or = to 2.5/40 mg Ezetimibe + Simvastatin 10/80 mg Simvastatin 80mg Discharge Plan Admission Admit Date/Time: 06/02/24 15:23 Primary Reason for Your Visit: Mechanical fall with intractable mid back pain Attending Provider: Caterina Carrera Primary Care Provider: Aroldo Julio Consulting Providers: Kandis Bustamante; Angela Engle Instructions Additional Instructions / Restrictions: 1. Please weigh yourself in the morning on a daily basis and if your weight goes up greater than 2 to 3 pounds take an extra dose of your water pill (Lasix) and call the director of business operations office. 2. Please avoid salt and limit your salt intake to 2 to 3 g daily. Also limit fluid intake to no greater than 2 L daily. 3. Please follow-up with your director of business operations as noted below Discharge Orders/Prescriptions Prescriptions: New furosemide 20 mg Tablet 20 mg PO DAILY Qty: 30 0RF lidocaine 5 % Adhesive Patch,Medicated 2 patch topical DAILY Qty: 30 0RF Protocol: *Topical Application Instructions APPLICATION INSTRUCTIONS: Back oxycodone 5 mg Tablet 5 mg PO Q4H PRN PRN (Reason: Pain Score 4-10) 5 Days Qty: 30 0RF tizanidine 2 mg Tablet 2 mg PO Q8H PRN PRN (Reason: Muscle spasm/strain) 5 Days Qty: 15 0RF acetaminophen [Acetaminophen Extra Strength] 500 mg tablet 1,000 mg PO Q8H Qty: 1 0RF carvedilol [Coreg] 3.125 mg tablet 3.125 mg PO BID Qty: 60 0RF Rx Instructions: must administer with a meal/food Continued cholecalciferol (vitamin D3) 25 mcg (1,000 unit) capsule 25 mcg PO DAILY Eliquis 2.5 mg tablet 2.5 mg PO BID Patient Comments: LAST DOSE 11/07/21 Discontinued furosemide [Lasix] 20 mg tablet 20 mg PO Q OTHER DAY carvedilol 6.25 mg tablet 6.25 mg PO BID Qty: 180 3RF Referrals / Follow Up: Aroldo Julio MD [Primary Care Provider] - 06/10/24 10:00 am Michell Rodriguez PA [Med Staff - Adv Practice Prof] - 07/17/24 1:00 pm Ramana Pressley MD [Med Staff - Active Staff] - See Referral Note (If back pain continues to be problematic) Disposition Disposition (needs filled in before D/C Order can be placed): Home, Self Care Charges/Coding Visit Charges Inpatient E&M: 14436 Disch Hosp >30min
[2024-06-03 16:30] VITALS: BP 115/74; PULSE 71; RESP 18; TEMP 36.9; O2SAT 94
--- NOTE | 2024-06-03 16:50 | PHA.DC.MR.R ---
Pharmacy MS Med Reconciliation Pharmacy Service has performed discharge medication reconciliation for this patient. Medication education papers prepared, patient discharged when counseling was attempted. Medications reviewed. The patient's discharge medication list was reviewed for discrepancies and discrepancies were resolved. Medications at Discharge Home Medications cholecalciferol (vitamin D3) 25 mcg (1,000 unit) capsule 25 mcg PO DAILY VITAMIN SUPPLEMENT 12/19/19 apixaban 2.5 mg tablet (Eliquis) 2.5 mg PO BID BLOOD THINNER 05/07/21 acetaminophen 500 mg tablet (Acetaminophen Extra Strength) 1,000 mg (2 x 500 mg) PO Q8H #1 TAB 06/03/24 carvedilol 3.125 mg tablet (Coreg) 3.125 mg PO BID #60 tabs 06/03/24 furosemide 20 mg tablet 20 mg PO DAILY #30 tabs 06/03/24 lidocaine 5 % topical patch 2 patch topical DAILY #30 ea 06/03/24 oxycodone 5 mg tablet 5 mg PO Q4H PRN PRN Pain Score 4-10 5 days #30 tabs 06/03/24 tizanidine 2 mg tablet 2 mg PO Q8H PRN PRN Muscle spasm/strain 5 days #15 tabs 06/03/24
== END 2024-06-03 16:40 | disposition home or self-care (01) | DRG 291 ==
LOC: ED 22:22 → MS3 22:37
PROVIDERS: Student in an Organized Health Care Education/Training Program; Admitting Provider Family Medicine; Emergency Provider Emergency Medicine; PCP Family Medicine; Visit Provider Internal Medicine
DX: I13.0 Hypertensive heart and chronic kidney disease with heart failure and stage 1 through stage 4 chronic kidney disease, or unspecified chronic kidney disease (principal); I50.23 Acute on chronic systolic (congestive) heart failure; N18.4 Chronic kidney disease, stage 4 (severe); I48.19 Other persistent atrial fibrillation; D69.6 Thrombocytopenia, unspecified; Z79.01 Long term (current) use of anticoagulants; Z95.1 Presence of aortocoronary bypass graft; E78.00 Pure hypercholesterolemia, unspecified; I25.10 Atherosclerotic heart disease of native coronary artery without angina pectoris; I25.5 Ischemic cardiomyopathy; M54.6 Pain in thoracic spine; G89.21 Chronic pain due to trauma; W11.XXXA Fall on and from ladder, initial encounter; N28.1 Cyst of kidney, acquired; R09.02 Hypoxemia; R73.02 Impaired glucose tolerance (oral); Z95.810 Presence of automatic (implantable) cardiac defibrillator; Z79.899 Other long term (current) drug therapy; Z86.73 Personal history of transient ischemic attack (TIA), and cerebral infarction without residual deficits
CPT/HCPCS: 36415; 51702; 70450; 71045; 71260; 74177; 76770; 80048; 80053; 81001; 82550; 82570; 83036; 83690; 83880; 84540; 85025; 93306; 94640; 94668; 97116; 97162; 97166; 97530; 99284; J7030; Q9957; Q9967; A4216; C8929; J1940; J2405

== ENCOUNTER 2025-03-27 09:58 | Emergency (ER) | payer MEDICARE, SELFPAY ==
[2025-03-27 10:00] VITALS: BP 121/83; PULSE 89; RESP 18; TEMP 36.7; O2SAT 97; BMI 23.1
--- NOTE | 2025-03-27 10:26 | CT_ITS ---
PROCEDURE: SPINE CERVICAL WITHOUT CONTRAS 03/27/2025 REASON FOR EXAM: FALL TECHNIQUE: SPINE CERVICAL WITHOUT CONTRAS Coronal and Sagittal reconstruction series were provided. One or more dose reduction techniques were used (e.g., Automated exposure control, adjustment of the mA and/or kV according to patient size, use of iterative reconstruction technique. RADIATION DOSE SUMMARY: CTDlvol: 65 mGy DLP: 1303 mGycm COMPARISON: None FINDINGS: Alignment: Mild curvature cervical spine to the right. Exaggeration of the cervical lordosis. Vertebrae: Mild decreased bone mineralization. No fracture. Partial ankylosis C2/3 facets on the right. Facet hypertrophy throughout the cervical spine. Soft Tissues: No mass or lymph node enlargement. Atherosclerotic plaque carotid bulbs. Other: Lung apices are clear. CT/Spine Cervical without Contras IMPRESSION: 1. No fracture 2. Multilevel degenerative changes primarily involving the facets. Reading Location: [id number]
--- NOTE | 2025-03-27 10:26 | CT_ITS ---
PROCEDURE: BRAIN/HEAD WITHOUT CONTRAST 03/27/2025 REASON FOR EXAM: FALL ON ELIQUIS TECHNIQUE: BRAIN/HEAD WITHOUT CONTRAST Coronal and Sagittal reconstruction series were provided. One or more dose reduction techniques were used (e.g., Automated exposure control, adjustment of the mA and/or kV according to patient size, use of iterative reconstruction technique. RADIATION DOSE SUMMARY: CTDlvol: 65 mGy DLP: 1303 mGycm COMPARISON: March 02, 2020 FINDINGS: Brain: There is no evidence of hemorrhage, acute ischemia or mass. No extra- axial fluid collection, midline shift or mass effect. Low-density in the periventricular white matter and deep white matter of the frontal and parietal lobes. CSF Spaces: Moderate generalized cerebral atrophy Sinuses/Mastoids: Circumferential mucosal thickening left maxillary sinus. Otherwise clear. Deviated septum to the right with spur to the right. Bones: No fracture Advanced atherosclerosis of the vasculature of the [id number]. Bilateral lens implants. CT/Brain/Head without Contrast IMPRESSION: 1. No evidence of intracranial hemorrhage or acute ischemia. 2. Changes of chronic microvascular ischemia and volume loss. Reading Location: [id number]
--- NOTE | 2025-03-27 10:28 | EX.ED.UPPERE ---
HPI History of Present Illness HPI Narrative: Patient is an 89-year-old male presenting emergency department after a fall. Patient has a past medical history as below. Patient states that he was outside and he tripped on a piece of metal causing him to land into a wood pile on his left arm. He denies hitting his head or any loss of consciousness. Denies any neck or back pain. He was able to get up by himself. He is on Eliquis. Reports that he has skin tears to his left upper extremity. Daughter states she tried to clean them at home but then decided to bring him in for evaluation. He denies any other injuries. Chief Complaint: Laceration [facility] Medical History Olecranon bursitis, left elbow Left elbow pain Chondrocalcinosis of left knee Hypertension Wears glasses High cholesterol Injury of head and neck Cardiology follow-up encounter History of echocardiogram History of stress test Persistent atrial fibrillation Non-sustained ventricular tachycardia Secondary pulmonary arterial hypertension Transient ischemic attack Atherosclerotic heart disease of [place] coronary artery without angina pectoris Hyperlipidemia Ischemic cardiomyopathy Abnormal electrocardiogram [ECG] [EKG] Paroxysmal atrial fibrillation Encounter for long-term current use of high risk medication Palpitations CKD (chronic kidney disease) stage 3, GFR 30-59 ml/min Home Medications ?Medication ?Instructions ?Recorded ?Last Taken ?Type cholecalciferol (vitamin D3) 25 25 mcg PO DAILY VITAMIN SUPPLEMENT 12/19/19 Unknown History mcg (1,000 unit) capsule apixaban 2.5 mg tablet (Eliquis) 2.5 mg PO BID BLOOD THINNER 05/07/21 10/16/23 History carvedilol 3.125 mg tablet (Coreg) 12.5 mg PO BID 11/19/24 Unknown History furosemide 20 mg tablet 20 mg PO BID 11/19/24 Unknown History rosuvastatin 20 mg tablet 20 mg PO QDAY 01/02/25 Unknown History colchicine 0.6 mg tablet 0.6 mg PO DIRECTED #10 tabs 02/06/25 Unknown Rx prednisone 50 mg tablet 50 mg PO QDAY #5 tabs 03/12/25 Unknown Rx Allergy/AdvReac Type Severity Reaction Status Date / Time No Known Allergies Allergy Verified 03/27/25 10:00 Family History Father CAD (coronary artery disease), Onset Age: 55 Mother , unknown cause No problems noted. Brother CAD (coronary artery disease) History of coronary artery bypass graft x 3 Brother Cancer Brother Unknown whether patient has any health problems Brother , unknown causes No problems noted. Surgical History Hx of bilateral cataract extraction History of implantable cardiac defibrillator (ICD) Status post laparoscopic colectomy H/O coronary artery bypass surgery (11/24/10) History of umbilical hernia repair Presence of implantable cardioverter-defibrillator (ICD) (05/25/11) Social History household members: spouse Smoking Status: Never smoker alcohol intake: never substance use type: does not use caffeine: Yes Type: coffee Number of servings: 2 ROS ROS ED ROS Narrative see HPI EXAM Physical Exam Narrative Exam Narrative: Vital signs: Reviewed General: Alert and oriented. No acute distress HEENT: Head is normocephalic and atraumatic, sinuses nontender, pupils equal round and reactive. Nares are patent. Oropharynx and throat exams normal. Neck: Supple without lymphadenopathy nontender. No midline cervical spinal tenderness palpation. No step-offs or deformities. Cardiovascular: Regular rate and rhythm, no murmurs. No rubs or gallops. Normal S1 and S2. Chest wall is atraumatic and nontender to palpation. Respiratory: Clear to auscultation bilaterally. No wheezes, rales, rhonchi Abdominal: Soft and nontender. Normal bowel sounds. No guarding or rebound. Nonsurgical abdomen Extremities: No midline thoracic or lumbar spinal tenderness palpation. No step-offs deformities. Hips are stable and nontender to palpation. left elbow with skin tear, no active bleeding. Left dorsal forearm with skin tear as well. No active bleeding. No tenderness to palpation of the left shoulder, upper arm, elbow, forearm, wrist or hand. Extremities are otherwise atraumatic and nontender to palpation with normal range of motion. Skin: No rash or redness. Neurological: Cranial nerves II through XII are grossly intact. Normal strength and sensation. Normal cerebellar function The rest of the physical exam is unremarkable Const Vital Signs: 03/27/25 10:00 Temperature 98.0 F Temperature Source Oral Pulse Rate 89 Respiratory Rate 18 Blood Pressure 121/83 H Blood Pressure Mean 95 Pulse Ox 97 Oxygen Delivery Method Room Air MDM MDM MDM Narrative Medical decision making narrative: Patient is an 89-year-old male presenting to the emergency department for a skin tear after a fall. Patient was seen and examined. Vitals are stable. Patient resting bed comfortably no acute distress. It was a pure mechanical fall, states he tripped on a piece of metal. Denies any prodromal symptoms. No indication for labs or additional workup. He is unsure when his last tetanus vaccine was, updated here. Given he is on Eliquis and his age, CT of the brain and cervical spine were ordered. Will irrigate wound. Given his a skin tear, Steri-Strips and Dermabond will be used. Abdominal pad dressing applied over top. Patient has no tenderness to palpation of the extremities. With the skin tear I did offer xrays to rule out occult fracture however think this is unlikely with no pain and normal ROM, patient and daughter agree this is unnecessary at this time. Patient ambulated without difficulty. Given wound care instructions. CT brain shows no evidence of intracranial hemorrhage. CT cervical spine is negative for any acute traumatic abnormalities. Patient and daugther updated. All questions were answered. Patient discharged from the Emergency Department. I do not feel that the patient's evaluation reveals any acute reason for admission at this time. I instructed them to either follow-up with their primary care physician or promptly return to the Emergency Department for reevaluation should symptoms worsen or new symptoms develop. I explained what symptoms would indicate the need to return to the emergency department. Shared decision making was used. The patient voiced understanding of the treatment plan and is agreeable with it. Clinical impression: 1. fall 2. skin tear Discharge Plan Triage Chief Complaint: Laceration Other Complaint: Fall ED Provider: Kiki Zaidi Dx/Rx/DC Orders Instructions: ED Mechanical Fall, ED Skin Tear (Skin Avulsion) Prescriptions: No Action cholecalciferol (vitamin D3) 25 mcg (1,000 unit) capsule 25 mcg PO DAILY Eliquis 2.5 mg tablet 2.5 mg PO BID Patient Comments: LAST DOSE 11/07/21 furosemide 20 mg tablet 20 mg PO BID carvedilol [Coreg] 3.125 mg tablet 12.5 mg PO BID Rx Instructions: must administer with a meal/food rosuvastatin 20 mg tablet 20 mg PO QDAY colchicine 0.6 mg tablet 0.6 mg PO DIRECTED Qty: 10 0RF Rx Instructions: Take 1 tab day 1 then starting day take 1/2 tab daily as needed until the pain resolves. prednisone 50 mg tablet 50 mg PO QDAY Qty: 5 0RF Primary Care Provider: Aroldo Julio Referrals: Aroldo Julio MD [Primary Care Provider] - 2 Days Activity Restrictions/Additional Instructions: Your evaluation in the Emergency Department did not reveal any acute reason for admission. However, I want to emphasize that you may be early in the course of a disease process or illness even if it is not present. For this reason you should follow-up within 24 hours for reevaluation with either your primary care physician or if necessary back here in the Emergency Department. You should return to the Emergency Department immediately if your symptoms worsen or new symptoms develop. Print Language: French Disposition Disposition: Home, Self Care
[2025-03-27 12:15] VITALS: BP 122/79; PULSE 84; RESP 16; TEMP 36.7; O2SAT 99
== END 2025-03-27 12:15 | disposition home or self-care (01) ==
PROVIDERS: Emergency Provider Student in an Organized Health Care Education/Training Program; PCP Family Medicine; Visit Provider Student in an Organized Health Care Education/Training Program
DX: S41.112A Laceration without foreign body of left upper arm, initial encounter (principal); I48.0 Paroxysmal atrial fibrillation; N18.30 Chronic kidney disease, stage 3 unspecified; I25.10 Atherosclerotic heart disease of native coronary artery without angina pectoris; E78.00 Pure hypercholesterolemia, unspecified; Z79.01 Long term (current) use of anticoagulants; I12.9 Hypertensive chronic kidney disease with stage 1 through stage 4 chronic kidney disease, or unspecified chronic kidney disease; W01.198A Fall on same level from slipping, tripping and stumbling with subsequent striking against other object, initial encounter; Y92.89 Other specified places as the place of occurrence of the external cause; Z79.899 Other long term (current) drug therapy; Z98.41 Cataract extraction status, right eye; Z98.42 Cataract extraction status, left eye; Z95.810 Presence of automatic (implantable) cardiac defibrillator; Z23 Encounter for immunization
CPT/HCPCS: 70450; 72125; 90471; 90715; 99283

== ENCOUNTER 2025-08-11 05:31 | Emergency (ER) | payer OTHER, SELFPAY ==
[2025-08-11 05:32] VITALS: BP 137/94; PULSE 18; RESP 90; TEMP 36.4; BMI 24.7
--- NOTE | 2025-08-11 05:56 | EX.ED.DYSGE1 ---
HPI History of Present Illness Chief Complaint: Lower Extremity Injury Informant: patient and spouse/S.O. Narrative Narrative: Patient is 89-year-old male with past medical history of hypertension hyperlipidemia atrial fibrillation status post pacemaker placement on Eliquis as well as previous bouts of gout. He states he noticed pain in his left great toe over the past 3 days without any report of trauma or excessive activity. Today he noticed that the pain was more severe and keeping him from sleeping and that the great toe and part of the foot was appearing red in color. He states because of the worsening symptoms he presents for evaluation. He denies any fevers or chills or sick symptoms. [facility] Medical History Olecranon bursitis, left elbow Left elbow pain Chondrocalcinosis of left knee Hypertension Wears glasses High cholesterol Injury of head and neck Cardiology follow-up encounter History of echocardiogram History of stress test Persistent atrial fibrillation Non-sustained ventricular tachycardia Secondary pulmonary arterial hypertension Transient ischemic attack Atherosclerotic heart disease of [place] coronary artery without angina pectoris Hyperlipidemia Ischemic cardiomyopathy Abnormal electrocardiogram [ECG] [EKG] Paroxysmal atrial fibrillation Encounter for long-term current use of high risk medication Palpitations CKD (chronic kidney disease) stage 3, GFR 30-59 ml/min Home Medications ?Medication ?Instructions ?Recorded ?Last Taken ?Type cholecalciferol (vitamin D3) 25 25 mcg PO DAILY VITAMIN SUPPLEMENT 12/19/19 Unknown History mcg (1,000 unit) capsule apixaban 2.5 mg tablet (Eliquis) 2.5 mg PO BID BLOOD THINNER 05/07/21 10/16/23 History carvedilol 3.125 mg tablet (Coreg) 12.5 mg PO BID 11/19/24 Unknown History colchicine 0.6 mg capsule 0.6 mg PO BID 7 days #14 caps 08/11/25 Unknown Rx oxycodone-acetaminophen 5 mg-325 1 tab PO Q6H PRN pain 3 days #12 08/11/25 Unknown Rx mg tablet (Percocet) tabs Allergy/AdvReac Type Severity Reaction Status Date / Time No Known Allergies Allergy Verified 08/11/25 05:36 Family History Father CAD (coronary artery disease), Onset Age: 55 Mother , unknown cause No problems noted. Brother CAD (coronary artery disease) History of coronary artery bypass graft x 3 Brother Cancer Brother Unknown whether patient has any health problems Brother , unknown causes No problems noted. Surgical History Hx of bilateral cataract extraction History of implantable cardiac defibrillator (ICD) Status post laparoscopic colectomy H/O coronary artery bypass surgery (11/24/10) History of umbilical hernia repair Presence of implantable cardioverter-defibrillator (ICD) (05/25/11) Social History household members: spouse Smoking Status: Never smoker alcohol intake: never substance use type: does not use caffeine: Yes Type: coffee Number of servings: 2 ROS ROS ED Constitutional Constitutional ED: Denies chills or fever(s) Cardiovascular Cardiovascular: Denies chest pain Respiratory/Chest Respiratory/Chest: Denies cough or dyspnea Gastrointestinal Gastrointestinal: Denies abdominal pain, diarrhea, nausea or vomiting Musculoskeletal Musculoskeletal: Reports other Details: Positive left toe/foot pain Integumentary Reports other Details: Positive redness and swelling left great toe/foot Neurologic Neurologic: Denies headache(s) Hematologic/Lymphatic Hematologic/Lymphatic: Reports easy bleeding and easy bruising EXAM Physical Exam Const Vital Signs: 08/11/25 05:32 08/11/25 06:05 Temperature 97.5 F L 97.5 F L Temperature Source Oral Pulse Rate 18 L 18 L Respiratory Rate 90 H 90 H Blood Pressure 137/94 H 134/78 H Blood Pressure Mean 108 96 Pulse Ox 100 Oxygen Delivery Method Room Air Positive well nourished and well developed General Appearance ED: well developed HEENT HEENT Narrative: Normocephalic atraumatic Eyes PERRL and EOMs intact bilaterally Neck supple Resp normal respiratory effort and clear to auscultation bilaterally Resp Narrative: Breath sounds are diminished throughout but overall clear to auscultation without signs of respiratory distress Cardio regular rate and regular rhythm Extremity Extremity Narrative: Left lower extremity is neurovascularly intact There is asymmetric swelling of the left great toe compared to right and there is also asymmetric erythema and warmth of the left great toe and this tracks proximally into the distal portion of the foot near the 1st and 2nd metatarsal No abscess formation noted; no crepitance; no lymphangitic streaking No bony deformity or joint effusion No subungual hematoma No ulcerative lesions noted Compartments are soft and compressible going against compartment syndrome Neuro oriented x3, CN's II-XII intact bilaterally and no sensory deficits noted Sensorium / Orientation: alert Motor Exam: strength 5/5 throughout Psych mental status grossly normal Skin Skin Narrative: Soft tissue changes to the left great toe/foot as documented above Otherwise normal MDM MDM MDM Narrative Medical decision making narrative: Patient arrived to the ER with stable vitals. He reported that he had left toe pain for the past 3 days without trauma or excessive activity that has since worsened. With the patient having nontraumatic toe pain and now having asymmetric redness warmth and swelling this is most consistent with gout. We did discuss that symptoms could be atypical presentation for cellulitis or osteomyelitis or bony trauma such as fracture despite his report of no recent injury or excessive activity. However as the most likely diagnosis is gout based on his history and physical exam we elected not to perform any type of imaging or laboratory studies at this time. As the patient has advanced age and multiple cardiac medical comorbidities I do not feel that multiple days of steroids are appropriate as this could cause increased cardiovascular strain. He will receive 60 mg one-time in the ER to help reduce inflammation and dissolve gouty crystals but will then be placed on colchicine to continue treatment and Percocet will be provided for pain. Patient and significant other understand that if symptoms or not improving over the next 2 to 3 days or he develops a fever this could indicate he had an atypical presentation for potential infectious process and will need to return to the ER. However at this time as his history and exam would suggest gout over any other diagnoses he will be treated and is otherwise safe for discharge History & Record Review Discussion w/independent historian: Patient and Significant other Discharge Plan Triage Chief Complaint: Lower Extremity Injury ED Provider: Tadeo Schaeffer Dx/Rx/DC Orders Clinical Impression: Gout attack, Hyperlipidemia, Hypertension, Ischemic cardiomyopathy, Current use of long term care social worker anticoagulation Instructions: ED Gout, ED Gout Diet Prescriptions: New oxycodone-acetaminophen [Percocet] 5-325 mg tablet 1 tab PO Q6H PRN (Reason: pain) 3 Days Qty: 12 0RF colchicine 0.6 mg capsule 0.6 mg PO BID 7 Days Qty: 14 0RF No Action cholecalciferol (vitamin D3) 25 mcg (1,000 unit) capsule 25 mcg PO DAILY Eliquis 2.5 mg tablet 2.5 mg PO BID Patient Comments: LAST DOSE 11/07/21 carvedilol [Coreg] 3.125 mg tablet 12.5 mg PO BID Rx Instructions: must administer with a meal/food Primary Care Provider: Aroldo Julio Referrals: Aroldo Julio MD [Primary Care Provider, Family Practice] Activity Restrictions/Additional Instructions: Your history and exam is most consistent with a gout attack. Please take the colchicine to dissolve the gouty crystals which will then resolve the swelling and pain. It would typically take 2 to 3 days for this to occur and therefore use the Percocet that was provided for pain control. If there is no improvement of your symptoms despite taking the medication or you develop a fever or have any further concerns return to the ER for repeat evaluation. Print Language: Bahamian Disposition Disposition: Home, Self Care Discharge Date/Time: 08/11/25 06:06
--- OUTSIDE RECORDS SUMMARY | 2025-08-11 06:00 | XMS RPT_ITS | CCD ---
Author Organization [facility] Providers Care Subassemblies Wirer Name Role Phone JENNI Nino, Sabina David Unavailable Unavailable Renae Guzman Unavailable Unavailable Renae Guzman Unavailable Unavailable MD Tineo Cyril S Unavailable JENNI Nino Sue M Unavailable Unavailable JENNI Nino, Sabina David Unavailable Unavailable Yuliana Mejia Unavailable JENNI Nino, Sabina David Unavailable Unavailable JENNI Nino, Sabina David Unavailable Unavailable JENNI Nino Sue M Unavailable Unavailable JENNI Nino Sue M Unavailable Unavailable Libertad Julio MD Primary Care Provider Libertad Julio MD Primary Care Provider Dr. Aroldo Julio Primary Care Provider Dr. Aroldo Julio Referring Provider [phone] Dr. Ten Tineo Attending Provider [phone] Dr. Aroldo Julio Primary Care Provider [phone] Dr. Aroldo Julio Referring Provider [phone] Dr. eTn Tineo Attending Provider [phone] Jennifer QUINTEROS, PA Gladys David Attending Provider Libertad Julio MD Primary Care Provider Dr. Aroldo Julio Primary Care Provider Dr. Aroldo Julio Referring Provider Dr. Ten Tineo Attending Provider [phone] Andry PANTOJA, SHAD Rivera Attending Provider Dr. Aroldo Julio Primary Care Provider [phone] Dr. Aroldo Julio Referring Provider Tamara Nino Attending Provider Unavailable Noman, Dr. Caal Attending Provider [phone] Aroldo Julio Primary Care Provider [phone] Dr. Aroldo Julio Referring Provider Dr. Ten Tineo Attending Provider [phone] Tamara Nino Attending Provider Unavailable Libertad Julio MD Primary Care Provider Podlogar HYDROTREATER OPERATOR.MEDICAL REFERRAL COORDINATOR, Romina Unavailable Kndavid HYDROTREATER OPERATOR.MEDICAL REFERRAL COORDINATOR, Jonathan Unavailable Sumanth CHANEL, Dr. Kendrick Primary Care Provider Noman CHANEL, Dr. Caal Attending Provider Sumanth CHANEL, Dr. Kendrick Referring Provider Gladys Pugh Attending Provider Magdaleno Singleton Attending Provider Tamara Nino Attending Provider Unavailable Mosheree LAN ANALYST-C, Gianfranco Attending Provider Sumanth CHANEL, Dr. Kendrick Primary Care Provider Dr. Aroldo Julio MD Referring Provider [phone] Noman CHANEL, Dr. Caal Attending Provider Dyan CHANEL, Dr. Swanson Emergency Provider Unavailab le [place] HYDROTREATER OPERATOR.MEDICAL REFERRAL COORDINATOR, Jonathan Unavailable LIBERTAD JULIO Referring Unavailab le LIBERTAD JULIO Primary Care Unavailab LIBERTAD Soni Attending Unavailab le SELF Referring Unavailable LIBERTAD JULIO Primary Care Unavailab le PODLOGARROMINA Referring Unavailable LIBERTAD JULIO Primary Care Unavailab le LIBERTAD JULIO Primary Care Unavailab le PODLOGAR, ROMINA Attending Unavailable LIBERTAD JULIO Primary Care Unavailab le KNOBLEJONATHAN Referring Unavailable BURSLEY, CHRISTOPHER B Primary Care Unavailab le KNOBLE, JONATHAN Attending Unavailable BURSLEY, CHRISTOPHER B Primary Care Unavailab le BURSLEY, CHRISTOPHER B Referring Unavailab le BURSLEY, CHRISTOPHER B Primary Care Unavailab le BURSLEY, CHRISTOPHER B Referring Unavailab le Noman, [place] Attending Unavailable Bursley, Aroldo Primary Care Unavailable Noman, Ten Attending Unavailable Bursley, Aroldo Referring Unavailable Bursley, Aroldo Primary Care Unavailable Bursley, Aroldo Primary Care Unavailable Magdaleno Singleton Attending Unavailable Bursley, Aroldo Referring Unavailable Bursley, Aroldo Primary Care Unavailable Noman, [place] Attending Unavailable Kiki Zaidi Attending Unavailable Bursley, Aroldo Primary Care Unavailable Bursley, Aroldo Primary Care Unavailable Bursley, Aroldo Referring Unavailable Magdaleno Singleton Attending Unavailable Bursley, Aroldo Primary Care Unavailable Bursley, Aroldo Referring Unavailable Magdaleno Singleton Attending Unavailable Noman, Ten Attending Unavailable Bursley, Aroldo Primary Care Unavailable Bursley, Aroldo Referring Unavailable Tamara Nino Attending Unavailable Bursley, Aroldo Primary Care Unavailable Bursley, Aroldo Referring Unavailable Gladys Pugh Attending Unavail able Bursley, Aroldo Primary Care Unavailable Noman, Ten Attending Unavailable Bursley, Aroldo Primary Care Unavailable Noman, Ten Attending Unavailable Bursley, Aroldo Referring Unavailable Bursley, Aroldo Primary Care Unavailable Noman, [place] Attending Unavailable Bursley, Aroldo Primary Care Unavailable Bursley, Aroldo Referring Unavailable Bursley, Aroldo Referring Unavailable Noman, Ten Attending Unavailable Bursley, Aroldo Primary Care Unavailable Bursley, Aroldo Referring Unavailable Gladys Pugh Attending Unavail able Bursley, Aroldo Primary Care Unavailable Bursley, Aroldo Referring Unavailable Bursley, Aroldo Primary Care Unavailable Gladys Pugh Attending Unavail able Gianfranco James Attending Unavailable Bursley, Aroldo Primary Care Unavailable Bursley, Aroldo Referring Unavailable Sumanth CHANEL, Dr. Kendrick Primary Care Physicia n Dr. Aroldo Julio MD Referring Provider Noman CHANEL, Dr. Caal Attending Physician [place] LAN ANALYST-C, Gianfranco Attending Physician Dyan CHANEL, Dr. Swanson Attending Physician Terrence Zaidi MD, Dr. Swanson Emergency Department Physici an Unavailable Sumanth CHANEL, Dr. Kendrick Primary Care Physicia n Sumanth CHANEL, Dr. Kendrick Referring Provider [place] LAN ANALYST-C, Gianfranco Attending Physician [phone] Dyan CHANEL, Dr. Swanson Attending Physician Terrence Zaidi MD, Dr. Swanson Emergency Department Physici an Unavailable Noman CHANEL, Dr. Caal Attending Physician Medications Current Medications Medication Drug Class(es) Dates Sig (Normalized) Sig (Original) apixaban 2.5 mg oral tablet (20 sources) Factor Xa Inhibitor Start: 05-07-2021 take 1 tablet by mouth twice daily Start: 12-19-2019 End: 05-07-2021 take 1 tablet by mouth twice daily Apixaban (Eliquis) 5 mg tablet Discontinued 5 mg PO TWICE A DAY December 18, 2019 11:00pm May 07, 2021 12:14pm Start: 06-20-2019 End: 12-19-2019 take 2 tablets by mouth twice daily Apixaban 2.5 mg tablet Discontinued 5 mg PO TWICE A DAY June 20, 2019 8:34am December 19, 2019 7:54am Start: 06-20-2019 End: 12-19-2019 take 5 mg by mouth twice daily Apixaban Discontinued 5 MG PO TWICE A DAY June 20, 2019 9:34am December 19, 2019 8:54am Start: 02-01-2018 End: 06-20-2019 take 1 tablet by mouth twice daily Apixaban 2.5 mg tablet Discontinued 2.5 mg PO TWICE A DAY 60 0 April 16, 2019 4:03pm June 20, 2019 8:36am Comment on above: Take 1 tablet by gagandeep th twice daily. ascorbic acid 500 mg chewable tablet (19 sources) Vitamin C take 500 mg by mouth once daily Ascorbic Acid 500 mg chew Take 500 mg by mouth once daily. Active Comment on above: Take 500 mg by mouth once daily. carvedilol 3.125 mg oral tablet (20 sources) alpha-Adrenergic Srinivasa, beta-Adrenergic Srinivasa Start: 11-19-2024 take 4 tablets by mouth twice daily at mealtime Start: 06-03-2024 End: 12-07-2024 take 1 tablet by mouth twice daily at mealtime Carvedilol (Coreg) 3.125 mg tablet Discontinued 3.125 mg PO TWICE A DAY 60 0 June 02, 2024 11:00pm November 19, 2024 12:01pm must administer with a meal/food Start: 06-18-2020 End: 06-10-2024 take 1 tablet by mouth twice daily Carvedilol 6.25 mg tablet Discontinued 6.25 mg PO TWICE A DAY 180 October 13, 2023 1:16pm October 16, 2023 8:08am HEART Start: 02-25-2019 End: 06-18-2020 take 1 tablet by mouth twice daily Carvedilol 12.5 mg tablet Discontinued 12.5 mg PO TWICE A DAY 180 February 27, 2020 4:30pm June 18, 2020 9:07am HEART Start: 06-19-2018 End: 02-25-2019 take 6.25 mg by mouth twice daily Carvedilol 12.5 mg tablet Discontinued 6.25 mg PO TWICE A DAY June 19, 2018 8:40am February 25, 2019 3:41pm HEART Start: 06-19-2018 End: 02-25-2019 take 6.25 mg by mouth twice daily Carvedilol Discontinued 6.25 MG PO TWICE A DAY June 19, 2018 9:40am February 25, 2019 4:41pm Start: 04-11-2012 End: 06-19-2018 take 1 tablet by mouth twice daily Carvedilol 12.5 mg tablet Discontinued 12.5 mg PO TWICE A DAY 180 November 27, 2017 1:37pm January 31, 2018 7:50am Start: 06-29-2011 End: 10-13-2016 take 1 tablet by mouth twice daily Carvedilol 25 MG tablet Discontinued 25 mg PO TWICE A DAY February 22, 2014 11:00pm October 13, 2016 11:17am Start: 12-16-2010 take 1 tablet by gagandeep twice daily COREG 6.25 MG TABS One tablet by mouth twice daily CARVEDILOL [id number] Ayala Early RN Comment on above: Take 1 tablet by gagandeep twice daily with meals. Take 1 tablet by gagandeep th two times a day with meals. cholecalciferol 0.025 mg oral capsule (18 sources) Vitamin D Start: 12-19-2019 take 1 capsule by mouth once daily cholecalciferol, vitamin D3, (VITAMIN D3 ORAL) (20 sources) take 1 tablet by mouth once daily cholecalciferol, vitamin D3, (VITAMIN D3 ORAL) Take 1 tablet by mouth once daily. Active take 1 tablet by mouth once delores y cholecalciferol, vitamin D3, (VITAMIN D3 ORAL) Take 1 tablet by mouth once daily. 0 Active Comment on above: Take 1 tablet by gagandeep th once daily. colchicine 0.6 mg oral table t (20 sources) Start: 02-06-2025 Start: 02-06-2025 End: 02-06-2025 take 1 tablet by mouth once daily Colchicine (Cardiac) 0.5 mg tablet Discontinued 0.5 mg PO daily 10 10 February 05, 2025 11:00pm February 14, 2025 11:00pm February 06, 2025 9:34am Start: 01-09-2025 End: 02-06-2025 Colchicine 0.6 mg tablet Discontinued 0.6 mg PO As Directed 10 January 08, 2025 11:00pm February 06, 2025 9:34am Take 2 tabs day 1 followed by 1 more tab 1 hour later then starting day 2 take 1 tab every 12 hours as needed until the pain resolves. furosemide 20 mg oral tablet (20 sources) Loop Diuretic Start: 06-10-2024 End: 09-30-2025 take 1 tablet by mouth twice daily Start: 03-25-2024 End: 06-03-2024 take 1 tablet by mouth every other day Furosemide (Lasix) 20 mg tablet Discontinued 20 mg PO every other day March 25, 2024 7:36am June 03, 2024 1:40pm Start: 10-26-2023 End: 11-19-2024 take 1 tablet by mouth once daily Furosemide (Lasix) 20 mg tablet Discontinued 20 mg PO daily 90 3 February 13, 2024 11:20am March 25, 2024 7:36am Comment on above: Take 1 tablet by gagandeep th every afternoon. predniSONE 50 mg oral tablet (5 sources) Start: 03-12-2025 take 1 tablet by mouth once daily rosuvastatin calcium 20 mg oral tablet (10 sources) HMG-CoA Reductase Inhibitor Start: 01-02-2025 take 1 tablet by mouth once daily Completed/Discontinued Medications Medication Drug Class(es) Dates Sig (Normalized) Sig (Original) acetaminophen 500 mg oral tablet (18 sources) Start: 06-03-2024 End: 11-19-2024 take 2 tablets by mouth every eight hours Acetaminophen (Acetaminophen Extra Strength) 500 mg tablet Discontinued 1000 mg PO Q8H 1 0 June 02, 2024 11:00pm November 19, 2024 12:00pm take 1 capsule by mo ut once daily at bedtime Acetaminophen 500 mg cap Take 1 capsule by mouth daily at bedtime. Active acetaminophen 325 mg / HYDROcodone bitartrate 5 mg oral tablet (18 sources) Opioid Agonist Start: 06-09-2022 End: 05-02-2023 Hydrocodone-Acetaminophen 5- 325 mg tablet Discontinued 1 {tbl} PO EVERY 6 HOURS NEEDED as needed for Pain 12 3 0 June 09, 2022 May 02, 2023 1:55pm Contusion of left hip Contusion of left hip, initial encounter Start: 06-09-2022 End: 05-02-2023 take 1 tablet by mouth every six hours as needed Hydrocodone-Acetaminophen Discontinued 1 TABLET PO EVERY 6 HOURS NEEDED 12 3 June 09, 2022 May 02, 2023 2:55pm acetaminophen 325 mg / oxyCODONE hydrochloride 5 mg oral tablet (20 sources) Opioid Agonist Start: 12-16-2010 End: 08-04-2011 PERCOCET 5-325 MG TABS As needed OXYCODONE-ACETAMINOPHEN [id number] Lynette Bose Start: 12-16-2010 End: 08-04-2011 PERCOCET 5-325 MG TABS As ne eded OXYCODONE-ACETAMINOPHEN [id number] Yanira Espinoza RN Start: 12-16-2010 PERCOCET 5-325 MG TABS As needed OXYCODONE-ACETAMINOPHEN [id number] Lynette Bose amiodarone hydrochloride 200 mg oral tablet (20 sources) Antiarrhythmic Start: 12-16-2010 End: 06-29-2011 take 1 tablet by mouth once daily AMIODARONE HCL 200 MG TABS One tablet by mouth daily AMIODARONE HCL [id number] Lynette Bose amoxicillin 875 mg / clavulanate 125 mg oral tablet (18 sources) Penicillin-class Antibacterial Start: 07-28-2021 End: 08-11-2021 Amoxicillin-Pot Clavulanate (Augmentin) 875-125 mg tablet Discontinued 1 {tbl} PO TWICE A DAY 14 0 July 28, 2021 12:00am August 11, 2021 1:29pm aspirin 81 mg delayed release oral tablet (20 sources) Platelet Aggregation Inhibitor, Nonsteroidal Anti-inflammatory Drug Start: 06-18-2020 End: 05-07-2021 Aspirin (Adult Low Dose Aspirin) 81 mg tablet,delayed release (DR/EC) Discontinued 81 mg PO DAILY June 18, 2020 12:00am May 07, 2021 12:14pm Start: 11-22-2010 take 1 tablet by gagandeep th once daily ASPIRIN 81 MG TABS One tablet by mouth daily ASPIRIN [id number] Lynette Bose Start: 11-22-2010 take 1 tablet by gagandeep th once daily ASPIRIN 81 MG TABS One tablet by mouth daily ASPIRIN [id number] Lynette Bose Start: 11-22-2010 take 1 tablet by gagandeep th once daily ASPIRIN EC 81 MG TBEC One tablet by mouth daily ASPIRIN [id number] Bree Pace RN atorvastatin 40 mg oral tablet (20 sources) HMG-CoA Reductase Inhibitor Start: 02-01-2018 End: 06-19-2018 take 1 tablet by mouth at bedtime Atorvastatin 40 MG tablet Discontinued 40 mg PO AT BEDTIME 30 0 January 31, 2018 11:00pm June 19, 2018 8:39am Start: 11-22-2010 End: 06-29-2011 take 1 tablet by mouth once daily LIPITOR 10 MG TABS One tablet by mouth daily ATORVASTATIN CALCIUM [id number] Natalia Soto RN COENZYME [id number] 3 FATTY ACD (6 sources) Start: 09-22-2016 take 1 tablet by mouth once daily, then take 3 tablets by mouth HEALTHY HEART EMUL One tablet by mouth daily COENZYME [id number] 3 FATTY ACD [id number] Ten Tineo MD COENZYME [id number] 3 FATTY ACD (5 sources) Start: 09-22-2016 take 1 tablet by mouth once daily, then take 3 tablets by mouth HEALTHY HEART EMUL One tablet by mouth daily COENZYME [id number] 3 FATTY ACD [id number] Ten Tineo MD Start: 09-22-2016 take 1 tablet by gagandeep th once daily, then take 3 tablets by mouth HEALTHY HEART EMUL One tablet by mouth daily COENZYME [id number] 3 FATTY ACD [id number] Ten Tineo MD diazePAM 2 mg oral tablet (18 sources) Benzodiazepine Start: 03-02-2020 End: 06-18-2020 take 1 tablet by mouth three times daily as needed for headache Diazepam 2 MG tablet Discontinued 2 mg PO 3 TIMES DAILY NEEDED as needed for Headache 10 March 01, 2020 11:00pm June 18, 2020 8:43am Headache Headache ferrous sulfate 325 mg oral tablet (18 sources) Start: 12-19-2019 End: 06-18-2020 take 1 tablet by mouth once daily Ferrous Sulfate 325 mg (65 mg iron) tablet Discontinued 325 mg PO DAILY December 18, 2019 11:00pm June 18, 2020 8:43am Fish Oils (20 sources) Start: 12-16-2010 take 1 tablet by mouth once daily FISH OIL CAPS One tablet by mouth daily OMEGA-3 FATTY ACIDS CAPS [id number] Lynette Bose Start: 12-16-2010 End: 04-11-2012 take 1 tablet by mouth once daily FISH OIL CAPS One tablet by mouth daily OMEGA-3 FATTY ACIDS CAPS [id number] Ten Tineo MD Start: 12-16-2010 take 1 tablet by gagandeep th once daily FISH OIL CAPS One tablet by mouth daily OMEGA-3 FATTY ACIDS CAPS [id number] Lynette Bose Start: 12-16-2010 End: 04-11-2012 take 1 tablet by mouth once daily FISH OIL CAPS One tablet by mouth daily OMEGA-3 FATTY ACIDS CAPS [id number] Ten Tineo MD glimepiride 1 mg oral tablet (20 sources) Sulfonylurea Start: 12-16-2010 End: 06-29-2011 take 1 tablet by mouth once daily AMARYL 1 MG TABS One tablet by mouth daily GLIMEPIRIDE [id number] Natalia Soto RN krill oil 1000 mg oral capsule (20 sources) Start: 04-08-2011 End: 03-03-2015 take 1 tablet by mouth once daily KRILL OIL 1000 MG CAPS One tablet by mouth daily KRILL OIL [id number] Lynette Bose lidocaine 0.05 mg/mg medicated patch (10 sources) Antiarrhythmic, Amide Local Anesthetic Start: 06-03-2024 End: 11-19-2024 Lidocaine 5 % Adhesive Patch,Medicated Discontinued 2 NMA TOPICAL DAILY June 02, 2024 11:00pm November 19, 2024 12:00pm Please contact the information source for Protocol details. losartan potassium 50 mg oral tablet (20 sources) Angiotensin 2 Receptor Srinivasa Start: 02-23-2014 End: 10-13-2016 Losartan 50 MG tablet Discontinued 25 mg PO DAILY February 22, 2014 11:00pm October 13, 2016 11:17am Start: 02-23-2014 End: 10-13-2016 take 25 mg by mouth once daily Losartan Discontinued 2 5 MG PO DAILY February 23, 2014 12:00am October 13, 2016 12:17pm Start: 06-29-2011 take 1 tablet by gagandeep once daily LOSARTAN POTASSIUM 25 MG TABS One tablet by mouth daily LOSARTAN POTASSIUM [id number] Ten Tineo MD Start: 04-08-2011 End: 10-28-2016 take 1 tablet by mouth once daily LOSARTAN POTASSIUM 50 MG TABS One tablet by mouth daily LOSARTAN POTASSIUM [id number] Randall Sin MD Magnesium (20 sources) Start: 01-02-2012 End: 04-11-2012 CHELATED MAGNESIUM TABS 250 mg a day MAGNESIUM TABS [id number] Ten Tineo MD Start: 01-02-2012 CHELATED MAGNE SIUM TABS 250 mg a day MAGNESIUM TABS [id number] Yanira Espinoza RN Start: 01-02-2012 CHELATED MAGNE SIUM TABS 250 mg a day MAGNESIUM TABS [id number] Yanira Espinoza RN Start: 01-02-2012 End: 04-11-2012 CHELATED MAGNESIUM TABS 250 mg a day MAGNESIUM TABS [id number] Ten Tineo MD methylPREDNISolone 4 mg oral tablet (10 sources) Corticosteroid Start: 01-02-2025 End: 01-08-2025 take 1 tablet by mouth once Methylprednisolone (Medrol (Lucas)) 4 mg tablets,dose pack Discontinued 4 mg PO per package directions 21 6 0 January 01, 2025 11:00pm January 06, 2025 11:00pm January 07, 2025 11:06pm 24 hr metoprolol succinate 25 mg extended release oral tablet (20 sources) beta-Adrenergic Srinivasa Start: 11-22-2010 End: 06-29-2011 take 1 tablet by mouth once daily TOPROL XL 25 MG [id number] One tablet by mouth daily METOPROLOL SUCCINATE [id number] Lynette Bose Start: 11-22-2010 take 1 tablet by [facility] once daily TOPROL XL 25 MG [id number] One tablet by mouth daily METOPROLOL SUCCINATE [id number] Lynette Bose Start: 11-22-2010 End: 06-29-2011 take 1 tablet by mouth once daily TOPROL XL 25 MG [id number] One tablet by mouth daily METOPROLOL SUCCINATE [id number] Natalia Soto RN MULTIPLE VITAMIN (12 sources) Start: 12-16-2010 take 1 tablet by mouth once daily MULTIVITAMINS TABS One tablet by mouth daily MULTIPLE VITAMIN [id number] Lynette Bose Start: 12-16-2010 End: 08-04-2011 take 1 tablet by mouth once daily MULTIVITAMINS TABS One tablet by mouth daily MULTIPLE VITAMIN [id number] Yanira Espinoza RN MULTIPLE VITAMIN (10 sources) Start: 12-16-2010 take 1 tablet by mouth once daily MULTIVITAMINS TABS One tablet by mouth daily MULTIPLE VITAMIN [id number] Lynette Bose Start: 12-16-2010 End: 08-04-2011 take 1 tablet by mouth once daily MULTIVITAMINS TABS One tablet by mouth daily MULTIPLE VITAMIN [id number] Yanira Espinoza RN Start: 12-16-2010 take 1 tablet by gagandeep once daily MULTIVITAMINS TABS One tablet by mouth daily MULTIPLE VITAMIN [id number] Lynette Bose Start: 12-16-2010 End: 08-04-2011 take 1 tablet by mouth once daily MULTIVITAMINS TABS One tablet by mouth daily MULTIPLE VITAMIN [id number] Yanira Espinoza RN Sagle Q Plus (18 sources) Start: 02-17-2017 End: 06-20-2019 Sagle Q Plus Discontinued 1 {tbl} PO TWICE A DAY February 16, 2017 11:00pm June 20, 2019 8:35am SUPPLEMENT Start: 02-17-2017 End: 06-20-2019 Sagle Q Plus Discontinued 1 {tbl} PO TWICE A DAY February 17, 2017 12:00am June 20, 2019 9:35am SUPPLEMENT Start: 02-17-2017 End: 06-20-2019 Sagle Q Plus Discontinued 1 {tbl} PO TWICE A DAY February 17, 2017 12:00am June 20, 2019 9:35am Start: 02-17-2017 End: 06-20-2019 take 1 tablet by mouth twice daily Sagle Q Plus Discontinued 1 TABLET PO TWICE A DAY February 16, 2017 11:00pm June 20, 2019 8:35am Start: 02-17-2017 End: 06-20-2019 take 1 tablet by mouth twice daily Sagle Q Plus Discontinued 1 TABLET PO TWICE A DAY February 17, 2017 12:00am June 20, 2019 9:35am oxyCODONE hydrochloride 5 mg oral tablet (18 sources) Opioid Agonist Start: 06-03-2024 End: 11-19-2024 take 1 tablet by mouth every four hours as needed for pain Oxycodone 5 mg Tablet Discontinued 5 mg PO EVERY 4 HOURS NEEDED as needed for Pain Score 4-10 30 5 0 June 03, 2024 November 19, 2024 12:00pm Intractable back pain Dorsalgia, unspecified take [address] [facility] every four hours as needed oxyCODONE ir (OXYIR) 5 mg capsule Take 5 mg by mouth every 4 hours as needed for pain. Active red yeast rice 600 mg oral tablet (20 sources) Start: 03-23-2011 End: 08-04-2011 take 1 tablet by mouth twice daily RED YEAST RICE 600 MG TABS One tablet by mouth twice daily RED YEAST RICE EXTRACT [id number] Yanira Espinoza RN rOPINIRole 0.25 mg oral tablet (3 sources) Nonergot Dopamine Agonist Start: 09-12-2022 End: 11-14-2023 take 1 tablet by mouth at bedtime as needed rOPINIRole (REQUIP) 0.25 mg tablet Indications: Leg pain, bilateral Take 1 tablet by mouth at bedtime as needed (to be used as needed for restless leg symptoms). 30 tablet 0 09/12/2022 11/14/2023 Discontinued (Course of therapy completed) Comment on above: Take 1 tablet by gagandeep th at bedtime as needed (to be used as needed for restless leg symptoms). tamsulosin hydrochloride 0.4 mg oral capsule (11 sources) alpha-Adrenergic Srinivasa Start: 07-06-2021 End: 11-14-2023 take 0.4 mg by mouth once daily tamsulosin (FLOMAX) 0.4 mg Take 0.4 mg by mouth once daily. 07/06/2021 11/14/2023 Discontinued (Course of therapy completed) Comment on above: Take 0.4 mg by mouth once daily. tiZANidine 2 mg oral tablet (18 sources) Central alpha-2 Adrenergic Agonist Start: 06-03-2024 End: 11-19-2024 take 1 tablet by mouth every eight hours as needed for muscle spasms Tizanidine 2 mg Tablet Discontinued 2 mg PO EVERY 8 HOURS NEEDED as needed for Muscle spasm/strain 15 5 0 June 02, 2024 11:00pm November 19, 2024 12:00pm Problems Active Problems Problem Classification Problem Date Documented Da te Episodic/Chronic Abdominal pain (18 sources) Abdominal pain; Translations: [Unspecified abdominal pain] 07-09-2021 Episodic Cardiac dysrhythmias (20 sources) Paroxysmal atrial fibrillation; Translations: [Atrial flutter] Onset: 5 06-23-2015 Chronic Cardiac dysrhythmias (20 sources) Palpitations; Translations: [Palpitations] Onset: 3 05-17-2013 Episodic Chronic kidney disease (20 sources) Chronic kidney disease stage 3A ; Translations: [Stage 3a chronic kidney disease] Onset: 2 07-13-2021 Chronic Comment on above: Baseline Cr 1.2-1.4 Chronic kidney disease (2 sources) Chronic kidney disease; Translations: [Stage 3a chronic kidney disease (HCC)] Onset: 1 Conduction disorders (20 sources) Presence of automatic (implantable) cardiac defibrillator; Translations: [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] Onset: 1 10-25-2012 Chronic Congestive heart failure; nonhypertensive (3 sources) Acute on chronic systolic heart failure; Translations: [Acute on chronic systolic (congestive) heart failure] Onset: 5 06-10-2024 Chronic Coronary atherosclerosis and other heart disease (20 sources) Generalized ischemic myocardial dysfunction; Translations: [Coronary arteriosclerosis] Onset: 1 Resolved: 6 03-25-2016 Chronic Disorders of lipid metabolism (20 sources) Hyperlipidemia; Translations: [Hyperlipidemia, unspecified] Onset: 1 11-22-2010 Chronic Diverticulosis and diverticulitis (20 sources) Diverticulosis of colon; Translations: [Diverticulosis of large intestine without perforation or abscess without bleeding] Onset: 1 10-25-2010 Chronic E Codes: Fall (20 sources) Fall; Translations: [Unspecified fall, initial encounter] Onset: 4 06-17-2022 Episodic Essential hypertension (20 sources) Hypertensive disorder; Translations: [Essential (primary) hypertension] Onset: 7 10-31-2016 Chronic Fever of unknown origin (18 sources) Fever; Translations: [Fever, unspecified] 09-13-2018 Episodic Gout and other crystal arthropathies (20 sources) Chondrocalcinosis of joint of left knee; Translations: [Other chondrocalcinosis, left knee] Onset: 5 05-02-2023 Chronic Headache; including migraine (18 sources) Headache; Translations: [Headache] 03-03-2020 Episodic Hypertension with complications and secondary hypertension (20 sources) Hypertensive renal disease; Translations: [Hypertensive chronic kidney disease with stage 1 through stage 4 chronic kidney disease, or unspecified chronic kidney disease] Onset: 1 07-13-2021 Chronic Malaise and fatigue (18 sources) Asthenia; Translations: [Weakness] 12-06-2018 Episodic Open wounds of extremities (19 sources) Tear of skin; Translations: [Laceration without foreign body of left upper arm, initial encounter] Onset: 5 06-17-2022 Episodic Osteoarthritis (16 sources) Osteoarthritis of left knee joint; Translations: [Unilateral primary osteoarthritis, left knee] 04-21-2023 Chronic Other aftercare (20 sources) Long-term current use of anticoagulant; Translations: [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 operator (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) use of anticoagulants] 06-17-2022 Episodic Other aftercare (10 sources) Long-term current use of diuretic; Translations: [Encounter for therapeutic drug level monitoring] 2024 Episodic Other connective tissue disease (1 source) Pain in bilateral legs; Translations: [Pain in right leg] Episodic Other connective tissue disease (11 sources) Olecranon bursitis; Translations: [Olecranon bursitis, unspecified elbow] 12-11-2023 Episodic Other connective tissue disease (11 sources) Bursitis of olecranon of left elbow; Translations: [Olecranon bursitis, left elbow] 01-23-2024 Episodic Other gastrointestinal disorders (18 sources) Perforation of intestine; Translations: [Perforation of intestine (nontraumatic)] 07-09-2021 Episodic Other gastrointestinal disorders (18 sources) Pneumoperitoneum; Translations: [Other specified disorders of peritoneum] 07-09-2021 Episodic Other lower respiratory disease (20 sources) Hemoptysis; Translations: [Hemoptysis] Episodic Other lower respiratory disease (18 sources) Dyspnea on exertion; Translations: [Other forms of dyspnea] 12-06-2018 Episodic Other lower respiratory disease (2 sources) Multiple nodules of lung; Translations: [Other nonspecific abnormal finding of lung field] 06-10-2024 Episodic Other lower respiratory disease (1 source) Hypoxia; Translations: [Hypoxemia] 06-10-2024 Episodic Other lower respiratory disease (10 sources) Pleuritic pain; Translations: [Pleurodynia] 06-11-2024 Episodic Other nervous system disorders (18 sources) Ataxia; Translations: [Ataxia, unspecified] 12-06-2018 Episodic Other non-traumatic joint disorders (16 sources) Effusion of joint of left knee; Translations: [Effusion, left knee] 04-21-2023 Episodic Other non-traumatic joint disorders (2 sources) Hip pain; Translations: [Pain in left hip] 06-10-2024 Episodic Other non-traumatic joint disorders (10 sources) Pain in elbow; Translations: [Pain in left elbow] 02-01-2024 Episodic Other screening for suspected conditions (not mental disorders or infectious disease) (20 sources) Electrocardiogram abnormal; Translations: [Abnormal electrocardiogram [ECG] [EKG]] Onset: 1 11-22-2010 Episodic Jazmine-; endo-; and myocarditis; cardiomyopathy (except that caused by tuberculosis or sexually transmitted disease) (11 sources) Dilated cardiomyopathy; Translations: [Dilated cardiomyopathy] Onset: 1 11-22-2010 Chronic Pneumonia (except that caused by tuberculosis or sexually transmitted disease) (20 sources) Infective pneumonia; Translations: [Pneumonia, unspecified organism] Resolved: 7 12-06-2018 Episodic Pulmonary heart disease (20 sources) Other secondary pulmonary hypertension; Translations: [Pulmonary arterial hypertension] Onset: 6 03-25-2016 Chronic Spondylosis; intervertebral disc disorders; other back problems (20 sources) Neck pain; Translations: [Cervicalgia] 03-03-2020 Episodic Superficial injury; contusion (20 sources) Contusion of hip; Translations: [Contusion of left hip, initial encounter] 06-17-2022 Episodic Transient cerebral ischemia (20 sources) Transient cerebral ischemia; Translations: [Transient cerebral ischemic attack, unspecified] Onset: 8 03-19-2018 Chronic Unclassified (5 sources) Long-term drug therapy; Translations: [Other [place] [facility] [place] (current) drug therapy] Onset: 6 03-25-2016 Unclassified (1 source) Other persistent atrial fibrillation; Translations: [Other persistent atrial fibrillation] Onset: 5 Past or Other Problems Problem Classification Problem Date Documented Da te Episodic/Chronic Abdominal hernia (20 sources) Spigelian hernia; Translations: [Ventral hernia without obstruction or gangrene] Onset: 07-27-2009 07-27-2009 Episodic Administrative/social admission (1 source) Other specified counseling; Translations: [Advanced care planning/counseling discussion] Onset: 12-06-2024 Episodic Coronary atherosclerosis and other heart disease (19 sources) Presence of aortocoronary bypass graft; Translations: [Aortocoronary bypass status] Onset: 11-24-2010 12-16-2010 Episodic E Codes: Place of occurrence (1 source) Unspecified place in unspecified non-institutional (private) residence as the place of occurrence of the external cause; Translations: [Fall in home, subsequent encounter] Onset: 06-10-2024 Episodic Gastrointestinal hemorrhage (16 sources) Rectal hemorrhage; Translations: [Hemorrhage of anus and rectum] Onset: 10-19-2010 Resolved: 09-15-2017 09-15-2017 Episodic Hemorrhoids (20 sources) Internal hemorrhoids; Translations: [Other hemorrhoids] Onset: 10-25-2010 10-25-2010 Episodic Other aftercare (6 sources) Other intermission coordinator (current) drug therapy; Translations: [Other [place] [facility] (current) drug therapy] Onset: 03-25-2016 03-25-2016 Episodic Other lower respiratory disease (1 source) Other nonspecific abnormal finding of lung field; Translations: [Lung nodules] Onset: 06-10-2024 Episodic Other lower respiratory disease (1 source) Hypoxemia; Translations: [Hypoxia] Onset: 06-10-2024 Episodic Other non-traumatic joint disorders (1 source) Pain in left hip; Translations: [Acute hip pain, left] Onset: 06-10-2024 Episodic Other screening for suspected conditions (not mental disorders or infectious disease) (20 sources) Abnormal result of cardiovascular function study, unspecified; Translations: [Electrocardiogram abnormal] Onset: 11-22-2010 Resolved: 03-25-2016 03-25-2016 Episodic Residual codes; unclassified (20 sources) Family history of ischemic heart disease and other diseases of the circulatory system; Translations: [Family history of ischemic heart disease and other diseases of the circulatory system] Resolved: 03-25-2016 01-21-2014 Episodic Residual codes; unclassified (20 sources) Statin declined; Translations: [Procedure and treatment not carried out because of patient's decision for unspecified reasons] Onset: 09-26-2019 09-26-2019 Episodic Screening and history of mental health and substance abuse codes (3 sources) Patient encounter status; Translations: [Encounter for screening for depression] Onset: 12-06-2024 11-14-2023 Episodic Results Test Name Value Interpretation Reference Range Facility Pacemaker Checkon 06-03-2025 Pacemaker Check [facility] [address] [place] [address] Pacemaker Check Date of Service: 06/03/251536 MR#: [id number] Acct: [id number] Name: GABBY KEARNEY Rep #: [id number] : 1935 From: Tamara Nino Age/Sex: 89/M Location: [facility] Status: Signed Billing Codes ICD Device Billin ICD Dev Prog Eval, Dual Assessment and Plan Assessment and Plan (1) Persistent atrial fibrillation: Status: Acute (2) Ischemic cardiomyopathy: Status: Chronic (3) Presence of implantable cardioverter-defibri llator (ICD): Status: Chronic (4) Paroxysmal atrial fibrillation: Status: Chronic (5) Non-sustained ventricular tachycardia: Status: Chronic 06/03/251537 Date Tamara Mathisheather Signature: Date (if applicable) CC: Normal [facility] Cardiology Visit Reporton Cardiology Visit Report [facility] [address] [place] [address] OFFICE VISIT Date of Service: 05/30/25 MR#: [id number] Acct: [id number] Name: GABBY KEARNEY Rep #: [id number] : 1935 Provider: Dr. Ten Tineo MD Age/Sex: 89/M Location: [facility] Status: Signed HPI HPI History of Present Illness Details: GABBY KEARNEY, is a 89 M who presents to the office today for a cardiovascular outpatient follow-up. He has a history of coronary artery disease with coronary bypass surgery in 2010 with a left internal mammary artery to the left anterior descending artery, saphenous vein graft to diagonal branch, and a saphenous vein graft to posterior circumflex artery branch. He is also has a history ischemic cardiomyopathy, status post ICD implantation for reduced EF, atrial fibrillation, TIA in January 2018, and CKD. He had his ICD generator changed out in 10/2023. From a cardiac standpoint, patient is doing well. He does not have any chest discomfort/heaviness /tightness. He does not have any worsening symptoms of shortness of breath. He denies any PND. He does not have any orthopnea. He does not have any symptoms of congestive heart failure. He does not have any palpitations that he is aware of. He does not have any lightheadedness or dizziness. He does not have any near-syncope or syncope. He does not have any lower extremity edema. He does not have any symptoms of claudication. [facility] Int[facility] Vital Signs 03/25/24 08:25 03/27/25 10:00 05/30/25 15:04 Height 5 ft 10.87 in 5 ft 11 in 5 ft 11 in Weight: 171 lb BMI 23.8 BP 109/73 Blood Pressure Location Lt brachial Position Sitting Respiration 16 Pulse 82 Pulse Source Monitor Intake Visit Reasons: 1 Y FU Stitcher Operator Required: No Accompanied by: Self Is patient in pain?: No Allergies No Known Allergies Allergy (Verified 05/30/25 15:07) Medications ???Medication ???Instructions ???Recorded ???Confirmed ???Type cholecalciferol (vitamin D3) 25 25 mcg PO DAILY VITAMIN SUPPLEMENT 12/19/19 05/30/25 History mcg (1,000 unit) capsule apixaban 2.5 mg tablet (Eliquis) 2.5 mg PO BID BLOOD THINNER 05/30/25 History carvedilol 3.125 mg tablet (Coreg) 12.5 mg PO BID 11/19/24 05/30/25 History furosemide 20 mg tablet 20 mg PO BID 11/19/24 05/30/25 His tory rosuvastatin 20 mg tablet 20 mg PO QDAY 01/02/25 05/30/25 Hi story colchicine 0.6 mg tablet 0.6 mg PO DIRECTED #10 tabs 05/30/25 Rx prednisone 50 mg tablet 50 mg PO QDAY #5 tabs 03/12/25 Rx Ejection fraction %: 25 Have you fallen in the past year?: Yes Nurse's Note: pt did not bring med list today [facility] Medical History Olecranon bursitis, left elbow Left elbow pain Chondrocalcinosis of left knee Hypertension Wears glasses High cholesterol Injury of head and neck Cardiology follow-up encounter History of echocardiogram History of stress test Persistent atrial fibrillation Non-sustained ventricular tachycardia Secondary pulmonary arterial hypertension Transient ischemic attack Atherosclerotic heart disease of [place] coronary artery without angina pectoris Hyperlipidemia Ischemic cardiomyopathy Abnormal electrocardiogram [ECG] [EKG] Paroxysmal atrial fibrillation Encounter for long-term current use of high risk medication Palpitations CKD (chronic kidney disease) stage 3, GFR 30-59 ml/min Surgical History Hx of bilateral cataract extraction History of implantable cardiac defibrillator (ICD) Status post laparoscopic colectomy 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 Brother CAD (coronary artery disease) History of coronary artery bypass graft x 3 Brother Cancer Brother Unknown whether patient has any health problems Brother , unknown causes No problems noted. Social History household members: spouse Smoking Status: Never smoker alcohol intake: never substance use type: does not use caffeine: Yes Type: coffee Number of servings: 2 ROS Const Const: Negative for fatigue, weakness, daytime sleepiness or difficulty sleeping ENT ENT: Negative for dizziness or Nosebleed/epistaxis Cardio Chest Pain: No Palpitations: No Edema: None Resp Respiratory: Positive for SOB with activity; Negative for SOB at rest, SOB orthopnea (more content not included)... [facility] 04-03-2025 [facility] Telephone (FAMDNA) GABBY KEARNEY ([id number]) 1935 M Date Time Provider Department 04/03/[facility] During your visit today, we recorded the following information about you: Clarice LozoyaMarian 04/03/2025 12:39 PM Signed Gabby is calling Libertad Julio MD today to ask if he should still be taking the furosemide 20 mg or has that been removed from his mediation list? Please call patient to advise on his home phone which is verified Pharmacy is [facility] Patient has been identified by name and birthdate. Duration of symptoms: N/A Person calling: self Call patient at: at home [phone] (home) Was an appointment scheduled: No Closing statement: Results or non-symptom based questions: Thank you for calling [facility], your call will be returned within the next business day. [facility] Tati Jung MA 04/03/2025 1:54 PM Signed Please see message below from pt and advise. Rx ended in November. Pt last seen 11/2024, next appt 06/09/25. STONEY Christie Christopher B, MD 04/03/2025 2:43 PM Addendum He should still be taking it according to my records. Refill sent. Daxa Fry RN 04/03/2025 6:12 PM Signed Pt called and is notified of providers message and instructions. Pt voices understanding. Daxa Fry RN Allergies As of Date: 04/03/2025 (No Known Allergies) Date Reviewed: 12/06/2024 Reviewed by: Keke Lynn MA - Fully Assessed Reason for Visit: Patient Question [3766] Order(s):furosemide (LASIX) 20 mg tabletTake 1 tablet by mouth two times a day.Disp: 180 tabletRfl: 1 Prescriptions as of 04/03/2025 - furosemide (LASIX) 20 mg tablet Take 1 tablet by mouth two times a day. - oxyCODONE ir (OXYIR) 5 mg capsule Take 5 mg by mouth every 4 hours as needed for pain. - tiZANidine (ZANAFLEX) 2 mg tablet Take 2 mg by mouth every 8 hours as needed (muscle strain). - Acetaminophen 500 mg cap Take 1 capsule by mouth daily at bedtime. - carvedilol (COREG) 3.125 mg tablet Take 1 tablet by mouth two times a day with meals. - Ascorbic Acid 500 mg chew Take 500 mg by mouth once daily. - cholecalciferol, vitamin D3, (VITAMIN D3 ORAL) Take 1 tablet by mouth once daily. - apixaban (ELIQUIS) 2.5 mg tab tab(s) Take 1 tablet by mouth twice daily. Problem List As Of Date 04/03/2025 Noted Resolved Spigelian Hernia [K43.9] 07/27/2009 Inguinal Hernia Bilateral 07/27/2009 Rectal bleeding [K62.5] 10/19/2010 09/15/2017 Internal hemorrhoids [K64.8] 10/25/2010 Diverticulosis of colon [K57.30] 10/25/2010 CAD (coronary artery disease) [I25.10] 08/14/2010 Pneumonia [J18.9] 10/31/2016 Presence of combination internal cardiac defibr*08/14/2010 Hypertension [I10] Hiatal hernia with GERD [K44.9, K21.9] 12/12/2016 Hyperlipidemia [E78.5] Stage 3a chronic kidney disease (HCC) [N18.31] TIA (transient ischemic attack) [G45.9] 08/14/2017 Atrial flutter (HCC) [I48.92] Refusal of statin medication by patient [Z53.20]09/26/2019 Hypertensive kidney disease with stage 3a chron*07/13/2021 Stage 3b chronic kidney disease (HCC) [N18.32] 04/11/2022 Chronic kidney disease, stage 4 (severe) (HCC) *11/13/2023 Acute on chronic systolic congestive heart fail*12/06/2024 Prescriptions ordered this encounter Disp Refills Start End FUROSEMIDE 20 MG TABLET 180 * 1 04/03/2025 09/30/2025 Route: PO Sig: Take 1 tablet by mouth two times a day. Medications Discontinued During This Encounter Prescriptions - furosemide (LASIX) 20 mg tablet (Discontinued) Take 1 tablet by mouth two times a day. Encounter Status:Closed by NANCY DAXA on 04/03/25 Normal [facility] Brain/Head without Contrasto n 03-27-2025 Brain/Head without Contrast [facility] [address], [place] [address] Brain/Head without Contrast MR#: [id number] Acct: [id number] Name: GABBY KEARNEY Rep #: [id number] : 1935 M 89 From: Ayaan Cormier MD PCP: Dr. Aroldo Julio MD Status: REG ER Study: Brain/Head without Contrast Date of Exam: 03/14 12/06 Exam# [id number] Ordering Dr: Kiki Zaidi MD PROCEDURE: BRAIN/HEAD WITHOUT CONTRAST 03/27/2025 REASON FOR EXAM: FALL ON ELIQUIS TECHNIQUE: BRAIN/HEAD WITHOUT CONTRAST Coronal and Sagittal reconstruction series were provided. One or more dose reduction techniques were used (e.g., Automated exposure control, adjustment of the mA and/or kV according to patient size, use of iterative reconstruction technique. RADIATION DOSE SUMMARY: CTDlvol: 65 mGy DLP: 1303 mGycm COMPARISON: March 02, 2020 FINDINGS: Brain: There is no evidence of hemorrhage, acute ischemia or mass. No extra-axial fluid collection, midline shift or mass effect. Low-density in the periventricular white matter and deep white matter of the frontal and parietal lobes. CSF Spaces: Moderate generalized cerebral atrophy Sinuses/Mastoids: Circumferential mucosal thickening left maxillary sinus. Otherwise clear. Deviated septum to the right with spur to the right. Bones: No fracture Advanced atherosclerosis of the vasculature of the [id number]. Bilateral lens implants. CT/Brain/Head without Contrast IMPRESSION: 1. No evidence of intracranial hemorrhage or acute ischemia. 2. Changes of chronic microvascular ischemia and volume loss. Reading Location: [id number] CC: Dr. Aroldo Julio MD; Dr. Kiki Zaidi MD Test Architect: Signed Normal [facility] Emergency Department Summary on 03-27-2025 Emergency Department Summary [facility] Medical Records Department [address] [place] [address] Emergency Department Summary 03/27/25 MR#: [id number] Acct: [id number] Name: GABBY KEARNEY Rep #: [id number] : 1935 89 From: Kiki Zaidi MD PCP: Dr. Aroldo Julio MD Status:REG ER Location: ED HPI History of Present Illness HPI Narrative: Patient is an 89-year-old male presenting emergency department after a fall. Patient has a past medical history as below. Patient states that he was outside and he tripped on a piece of metal causing him to land into a wood pile on his left arm. He denies hitting his head or any loss of consciousness. Denies any neck or back pain. He was able to get up by himself. He is on Eliquis. Reports that he has skin tears to his left upper extremity. Daughter states she tried to clean them at home but then decided to bring him in for evaluation. He denies any other injuries. [facility] Medical History Olecranon bursitis, left elbow Left elbow pain Chondrocalcinosis of left knee Hypertension Wears glasses High cholesterol Injury of head and neck Cardiology follow-up encounter History of echocardiogram History of stress test Persistent atrial fibrillation Non-sustained ventricular tachycardia Secondary pulmonary arterial hypertension Transient ischemic attack Atherosclerotic heart disease of [place] coronary artery without angina pectoris Hyperlipidemia Ischemic cardiomyopathy Abnormal electrocardiogram [ECG] [EKG] Paroxysmal atrial fibrillation Encounter for long-term current use of high risk medication Palpitations CKD (chronic kidney disease) stage 3, GFR 30-59 ml/min Home Medications ???Medication ???Instructions ???Recorded ???Last Taken ???Type cholecalciferol (vitamin D3) 25 25 mcg PO DAILY VITAMIN SUPPLEMENT 12/19/19 Unknown History mcg (1,000 unit) capsule apixaban 2.5 mg tablet (Eliquis) 2.5 mg PO BID BLOOD THINNER 10/16/23 History carvedilol 3.125 mg tablet (Coreg) 12.5 mg PO BID 11/19/24 Unknown History furosemide 20 mg tablet 20 mg PO BID 11/19/24 Unknown Hist ory rosuvastatin 20 mg tablet 20 mg PO QDAY 01/02/25 Unknown His tory colchicine 0.6 mg tablet 0.6 mg PO DIRECTED #10 tabs Unknown Rx prednisone 50 mg tablet 50 mg PO QDAY #5 tabs 03/12/25 Unk nown Rx Allergy/AdvReac Type Severity Reaction Status Date / Time No Known Allergies Allergy Verified 03/27/25 10:00 Family History Father CAD (coronary artery disease), Onset Age: 55 Mother , unknown cause No problems noted. Brother CAD (coronary artery disease) History of coronary artery bypass graft x 3 Brother Cancer Brother Unknown whether patient has any health problems Brother , unknown causes No problems noted. Surgical History Hx of bilateral cataract extraction History of implantable cardiac defibrillator (ICD) Status post laparoscopic colectomy H/O coronary artery bypass surgery (11/24/10) History of umbilical hernia repair Presence of implantable cardioverter-defibri llator (ICD) (05/25/11) Social History household members: spouse Smoking Status: Never smoker alcohol intake: never substance use type: does not use caffeine: Yes Type: coffee Number of servings: 2 ROS ROS ED ROS Narrative see HPI EXAM Physical Exam Narrative Exam Narrative: Vital signs: Reviewed General: Alert and oriented. No acute distress HEENT: Head is normocephalic and atraumatic, sinuses nontender, pupils equal round and reactive. Nares are patent. Oropharynx and throat exams normal. Neck: Supple without lymphadenopathy nontender. No midline cervical spinal tenderness palpation. No step-offs or deformities. Cardiovascular: Regular rate and rhythm, no murmurs. No rubs or gallops. Normal S1 and S2. Chest wall is atraumatic and nontender to palpation. Respiratory: Clear to auscultation bilaterally. No wheezes, rales, rhonchi Abdominal: Soft and nontender. Normal bowel sounds. No guarding or rebound. Nonsurgical abdomen Extremities: No midline thoracic or lumbar spinal tenderness palpation. No step-offs deformities. Hips are stable and nontender to palpation. left elbow with skin tear, no active bleeding. Left dorsal forearm with skin tear as well. No active bleeding. No tenderness to palpation of the left shoulder, upper arm, elbow, forearm, wrist or hand. Extremities are otherwise atraumatic and nontender to palpation with normal range of motion. Skin: No rash or redness. Neurological: Cranial nerves II through XII are grossly intact. Normal str (more content not included)... [facility] Spine Cervical without Contr ason 03-27-2025 Spine Cervical without Contras [facility] [address] [place], [place] [id number] Spine Cervical without Contras MR#: [id number] Acct: [id number] Name: GABBY KEARNEY Rep #: [id number] : 1935 89 From: Ayaan Cormier MD PCP: Dr. Aroldo Julio MD Status: REG ER Study: Spine Cervical without Contras Date of Exam: 0 03/27/25 Exam# [id number] Ordering Dr: Kiki Zaidi MD PROCEDURE: SPINE CERVICAL WITHOUT CONTRAS 03/27/2025 REASON FOR EXAM: FALL TECHNIQUE: SPINE CERVICAL WITHOUT CONTRAS Coronal and Sagittal reconstruction series were provided. One or more dose reduction techniques were used (e.g., Automated exposure control, adjustment of the mA and/or kV according to patient size, use of iterative reconstruction technique. RADIATION DOSE SUMMARY: CTDlvol: 65 mGy DLP: 1303 mGycm COMPARISON: None FINDINGS: Alignment: Mild curvature cervical spine to the right. Exaggeration of the cervical lordosis. Vertebrae: Mild decreased bone mineralization. No fracture. Partial ankylosis C2/3 facets on the right. Facet hypertrophy throughout the cervical spine. Soft Tissues: No mass or lymph node enlargement. Atherosclerotic plaque carotid bulbs. Other: Lung apices are clear. CT/Spine Cervical without Contras IMPRESSION: 1. No fracture 2. Multilevel degenerative changes primarily involving the facets. Reading Location: [facility] CC: Dr. Aroldo Julio MD; Dr. Kiki Zaidi MD Test Architect: Signed [facility] Urgent Care Visit Reporton 0 03-12-2025 Urgent Care Visit Report [facility] [address], [address] [place] [address] OFFICE VISIT Date of Service: 03/12/25 MR#: [id number] Acct: [id number] Name: GABBY KEARNEY Rep #: [id number] : 1935 Provider: SHAD James Age/Sex: 89/M Location: [facility] Status: Signed Intake Vital Signs 01/02/25 11:46 03/12/25 10:21 Height 5 ft 11 in BP 122/80 H Position Sitting Respiration 18 Pulse 82 Temp 97.7 F L Temp Source Oral Pulse Oximetry (%) 98 Oxygen Delivery Method room air Intake Visit Reasons: 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 Chief Complaint: Left toe Accompanied by: Self Allergies No Known Allergies Allergy (Verified 03/12/25 10:22) Medications ???Medication ???Instructions ???Recorded ???Confirmed ???Type cholecalciferol (vitamin D3) 25 25 mcg PO DAILY VITAMIN SUPPLEMENT 12/19/19 03/12/25 History mcg (1,000 unit) capsule apixaban 2.5 mg tablet (Eliquis) 2.5 mg PO BID BLOOD THINNER 03/12/25 History carvedilol 3.125 mg tablet (Coreg) 12.5 mg PO BID 11/19/24 03/12/25 History furosemide 20 mg tablet 20 mg PO BID 11/19/24 03/12/25 His tory rosuvastatin 20 mg tablet 20 mg PO QDAY 01/02/25 03/12/25 Hi story colchicine 0.6 mg tablet 0.6 mg PO DIRECTED #10 tabs 03/12/25 Rx prednisone 50 mg tablet 50 mg PO QDAY #5 tabs 03/12/25 Rx Have you fallen in the past year?: Yes Nurse's Note: Patient has concerned for gout in his left big toe. Patient states this has been going on for couple weeks. Patient states he can walk its just painful. Patient states he has taken white pills for this and that helped and then he also has taken black pills for it. [facility] Medical History Olecranon bursitis, left elbow Left elbow pain Chondrocalcinosis of left knee Hypertension Wears glasses High cholesterol Injury of head and neck Cardiology follow-up encounter History of echocardiogram History of stress test Persistent atrial fibrillation Non-sustained ventricular tachycardia Secondary pulmonary arterial hypertension Transient ischemic attack Atherosclerotic heart disease of [place] coronary artery without angina pectoris Hyperlipidemia Ischemic cardiomyopathy Abnormal electrocardiogram [ECG] [EKG] Paroxysmal atrial fibrillation Encounter for long-term current use of high risk medication Palpitations CKD (chronic kidney disease) stage 3, GFR 30-59 ml/min Surgical History Hx of bilateral cataract extraction History of implantable cardiac defibrillator (ICD) Status post laparoscopic colectomy 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 Brother CAD (coronary artery disease) History of coronary artery bypass graft x 3 Brother Cancer Brother Unknown whether patient has any health problems Brother , unknown causes No problems noted. Social History household members: spouse Smoking Status: Never smoker alcohol intake: never substance use type: does not use caffeine: Yes Type: coffee Number of servings: 2 HPI HPI Chief Complaint: Left toe Details: GABBY KEARNEY, is a 89 M who presents to the office today for HPI: Patient complains of several weeks of pain in his left great toe. He states he has a history of gout and a few months back had pain in his right great toe and was given a Medrol Dosepak which did help relieve his symptoms. Patient otherwise denies any trauma to the foot denies any fever or any other health concerns. ROS: As noted in HPI Physical Exam: VITALS: Reviewed. GEN: Healthy appearing, well-developed, NAD. PSYCH: AOx3. Normal memory, mood, and affect. LUNGS: Normal respiratory effort. SKIN: Warm, well perfused. No skin rashes or abnormal lesions noted. MSK: Mildly favors left foot. Mild erythema noted to the left great toe. Toe minimally painful to palpation NEURO: Ambulating with no limitations. Normal muscle strength and tone. No focal deficits. 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 He was given a 5-day course of prednisone and I recommended follow-up with PCP if symptoms not improving. Medi (more content not included)... Normal [facility] Pacemaker Checkon 02-18-2025 Pacemaker Check [facility] [place] [address] Pacemaker Check Date of Service: 02/18/251716 MR#: [id number] Acct: [id number] Name: GABBY KEARNEY Rep #: [id number] : 1935 From: Tamara Nino Age/Sex: 89/M Location: [facility] Status: Signed Billing Codes ICD Device Billin ICD Dev Prog Eval, Dual Assessment and Plan Assessment and Plan (1) Ischemic cardiomyopathy: Status: Chronic (2) Presence of implantable cardioverter-defibri llator (ICD): Status: Chronic (3) Paroxysmal atrial fibrillation: Status: Chronic (4) Non-sustained ventricular tachycardia: Status: Chronic 02/18/251716 Date Tamara Mathisignbeny Signature: Date (if applicable) CC: Normal [facility] Urgent Care Visit Reporton 0 02-06-2025 Urgent Care Visit Report [facility] [address], [address] [place] [address] OFFICE VISIT Date of Service: 02/06/25 MR#: [id number] Acct: [id number] Name: GABBY KEARNEY Rep #: [id number] : 1935 Provider: ALDAIR Buchanan Age/Sex: 89/M Location: [facility] Status: Signed Intake Vital Signs 01/02/25 11:46 02/06/25 08:38 Height 5 ft 11 in Weight: 170 lb 8 oz BMI 23.8 BP 110/66 110/52 L Blood Pressure Location Lt brachial Lt brachial Position Sitting Sitting Respiration 17 18 Pulse 68 72 Pulse Source NIBP NIBP Temp 98.0 F 98.1 F Temp Source Oral Oral Pulse Oximetry (%) 96 96 Oxygen Delivery Method room air Intake Visit Reasons: PAIN IN L BIG TOE Chief Complaint: Feet Pain Stitcher Operator Required: No Is patient in pain?: Yes Allergies No Known Allergies Allergy (Verified 01/09/25 08:56) Have you fallen in the past year?: No Nurse's Note: Complaint of foot pain on both feet. On either greater toe there is sharp pain, redness, and swelling. Patient concerned for gout. [facility] Medical History Olecranon bursitis, left elbow Left elbow pain Chondrocalcinosis of left knee Hypertension Wears glasses High cholesterol Injury of head and neck Cardiology follow-up encounter History of echocardiogram History of stress test Persistent atrial fibrillation Non-sustained ventricular tachycardia Secondary pulmonary arterial hypertension Transient ischemic attack Atherosclerotic heart disease of [place] coronary artery without angina pectoris Hyperlipidemia Ischemic cardiomyopathy Abnormal electrocardiogram [ECG] [EKG] Paroxysmal atrial fibrillation Encounter for long-term current use of high risk medication Palpitations CKD (chronic kidney disease) stage 3, GFR 30-59 ml/min Surgical History Hx of bilateral cataract extraction History of implantable cardiac defibrillator (ICD) Status post laparoscopic colectomy 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 Brother CAD (coronary artery disease) History of coronary artery bypass graft x 3 Brother Cancer Brother Unknown whether patient has any health problems Brother , unknown causes No problems noted. Social History household members: spouse Smoking Status: Never smoker alcohol intake: never substance use type: does not use caffeine: Yes Type: coffee Number of servings: 2 HPI HPI Chief Complaint: Feet Pain Details: GABBY KEARNEY, is a 89 M who presents to the office today for complaint of left great toe pain starting last night. Patient does state that it feels similar to the last time he had gout in the right great toe. Patient denies any injury to the foot recently. No numbness, tingling or loss of range of motion. No other associated symptoms or alleviating/aggravat ing factors. ROS Const Constitutional: No other (6 system ROS completed with pertinent findings in the HPI otherwise normal.) Exam Const General: cooperative and healthy appearing Skin General: no rashes or lesions noted Neuro General: patient alert Extrem Other: Erythema and swelling left great toe with pain to palpation. 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 0.6 mg PO DIRECTED 10 tabs 0RF To colchicine Take 1 tab day 1 then starting day take 1/2 tab daily as needed until the pain resolves. 0.6 mg PO DIRECTED 10 tabs 0RF Plan Colchicine as prescribed today. Encouraged to get plenty of rest, drink lots of clear liquids, and use Tylenol or Ibuprofen (unless contraindicated) for comfort. Patient also educated on other symptomatic management techniques. To be seen in 7-10 days if no improvement; sooner if worsening of symptoms. Patient advised of potential red flags and when appropriate to report to the ED. Patient verbalized understanding and agreement with all the above. Clinical Quality Measures Falls Risk Screening/Assistive Devices Have you fallen in the p (more content not included)... Normal [facility] Urgent Care Visit Reporton 0 01-09-2025 Urgent Care Visit Report [facility] [address] , [address] [place] [address] OFFICE VISIT Date of Service: 01/09/25 MR#: [id number] Acct: [id number] Name: GABBY KEARNEY Rep #: [id number] : 1935 Provider: ALDAIR Buchanan Age/Sex: 89/M Location: [facility] Status: Signed Intake Vital Signs 01/02/25 11:46 01/09/25 08:57 Height 5 ft 11 in Weight: 170 lb 8 oz BMI 23.8 BP 110/66 100/60 Blood Pressure Location Lt brachial Position Sitting Sitting Respiration 17 Pulse 68 66 Pulse Source NIBP Temp 98.0 F 97.8 F Temp Source Oral Oral Pulse Oximetry (%) 96 91 Oxygen Delivery Method room air room air Intake Visit Reasons: CONCERN FOR GOUT ON R BIG TOE Chief Complaint: right great toe pain/redness Accompanied by: Self Allergies No Known Allergies Allergy (Verified 01/09/25 08:56) Medications ???Medication ???Instructions ???Recorded ???Confirmed ???Type cholecalciferol (vitamin D3) 25 25 mcg PO DAILY VITAMIN SUPPLEMENT 12/19/19 01/09/25 History mcg (1,000 unit) capsule apixaban 2.5 mg tablet (Eliquis) 2.5 mg PO BID BLOOD THINNER 01/09/25 History carvedilol 3.125 mg tablet (Coreg) 12.5 mg PO BID 11/19/24 01/09/25 History furosemide 20 mg tablet 20 mg PO BID 11/19/24 01/09/25 His tory rosuvastatin 20 mg tablet 20 mg PO QDAY 01/02/25 01/09/25 Hi story colchicine 0.6 mg tablet 0.6 mg PO DIRECTED #10 tabs 01/09/25 Rx Have you fallen in the past year?: No Nurse's Note: Patient here for concern for gout. Patient states he took all the Medrol Lucas and it helped him and then the last couple days he has pain again. [facility] Medical History Olecranon bursitis, left elbow Left elbow pain Chondrocalcinosis of left knee Hypertension Wears glasses High cholesterol Injury of head and neck Cardiology follow-up encounter History of echocardiogram History of stress test Persistent atrial fibrillation Non-sustained ventricular tachycardia Secondary pulmonary arterial hypertension Transient ischemic attack Atherosclerotic heart disease of [place] coronary artery without angina pectoris Hyperlipidemia Ischemic cardiomyopathy Abnormal electrocardiogram [ECG] [EKG] Paroxysmal atrial fibrillation Encounter for long-term current use of high risk medication Palpitations CKD (chronic kidney disease) stage 3, GFR 30-59 ml/min Surgical History Hx of bilateral cataract extraction History of implantable cardiac defibrillator (ICD) Status post laparoscopic colectomy 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 Brother CAD (coronary artery disease) History of coronary artery bypass graft x 3 Brother Cancer Brother Unknown whether patient has any health problems Brother , unknown causes No problems noted. Social History household members: spouse Smoking Status: Never smoker alcohol intake: never substance use type: does not use caffeine: Yes Type: coffee Number of servings: 2 HPI HPI Chief Complaint: right great toe pain/redness Details: GABBY KEARNEY, is a 89 M who presents to the office today for complaint of returning gout. Patient states that he took his Medrol and has a resolution of his symptoms however yesterday started having more pain and redness again. Patient denies any injury to the same. No fever, chills or sweats. No nausea, vomiting or diarrhea. No other associated symptoms or alleviating/aggravat ing factors. ROS Const Constitutional: No other (6 system ROS completed with pertinent findings in the HPI otherwise normal.) Exam Const General: cooperative and healthy appearing Skin General: no rashes or lesions noted Neuro General: patient alert Extrem Other: Erythema and swelling right great toe with pain to palpation. Psych Appearance: grossly normal Mental Status: mental status grossly normal Coding Level of Care Code Off vis,est,level 3 Diagnoses Gouty arthritis of right great toe M10.9 Assessment and Plan Assessment and Plan (1) Gouty arthritis of right great toe: Status: Acute Medications: New colchicine Take 2 tabs day 1 followed by 1 more tab 1 hour later then starting day 2 take 1 tab every 12 hours as needed until the pain resolves. 0.6 mg PO DIRECTED 10 tabs 0RF Plan Colchicine as prescribed today. Encouraged to (more content not included)... Normal [facility] Urgent Care Visit Reporton 0 01-02-2025 Urgent Care Visit Report [facility] [address], [address] [place] [address] OFFICE VISIT Date of Service: 01/02/25 MR#: [id number] Acct: [id number] Name: GABBY KEARNEY Rep #: [id number] : 1935 Provider: ALDAIR Buchanan Age/Sex: 89/M Location: [facility] Status: Signed Intake Vital Signs 11/19/24 13:01 01/02/25 11:46 Height 5 ft 11 in 5 ft 11 in Weight: 178 lb 170 lb 8 oz BMI 24.8 23.8 BP 109/56 L 110/66 Blood Pressure Location Lt brachial Lt brachial Position Sitting Sitting Respiration 18 17 Pulse 82 68 Pulse Source Monitor NIBP Temp 98.0 F Temp Source Oral Pulse Oximetry (%) 94 96 Oxygen Delivery Method room air Intake Visit Reasons: R GREAT TOE/PAIN/REDNESS Chief Complaint: right great toe pain/redness Stitcher Operator Required: No Is patient in pain?: Yes Allergies No Known Allergies Allergy (Verified 01/02/25 11:47) Medications ???Medication ???Instructions ???Recorded ???Confirmed ???Type cholecalciferol (vitamin D3) 25 25 mcg PO DAILY VITAMIN SUPPLEMENT 12/19/19 01/02/25 History mcg (1,000 unit) capsule apixaban 2.5 mg tablet (Eliquis) 2.5 mg PO BID BLOOD THINNER 01/02/25 History carvedilol 3.125 mg tablet (Coreg) 12.5 mg PO BID 11/19/24 01/02/25 History furosemide 20 mg tablet 20 mg PO BID 11/19/24 01/02/25 His tory methylprednisolone 4 mg tablets in 4 mg PO PER PKG DIR 6 days #21 t abs 01/02/25 01/02/25 Rx a dose pack (Medrol (Lucas)) rosuvastatin 20 mg tablet 20 mg PO QDAY 01/02/25 01/02/25 Hi story Have you fallen in the past year?: Yes Nurse's Note: lateral right great toe pain, redness, swelling for over 48 hours worsening. pt denies fever, drainage, blood. [facility] Medical History Olecranon bursitis, left elbow Left elbow pain Chondrocalcinosis of left knee Hypertension Wears glasses High cholesterol Injury of head and neck Cardiology follow-up encounter History of echocardiogram History of stress test Persistent atrial fibrillation Non-sustained ventricular tachycardia Secondary pulmonary arterial hypertension Transient ischemic attack Atherosclerotic heart disease of [place] coronary artery without angina pectoris Hyperlipidemia Ischemic cardiomyopathy Abnormal electrocardiogram [ECG] [EKG] Paroxysmal atrial fibrillation Encounter for long-term current use of high risk medication Palpitations CKD (chronic kidney disease) stage 3, GFR 30-59 ml/min Surgical History Hx of bilateral cataract extraction History of implantable cardiac defibrillator (ICD) Status post laparoscopic colectomy 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 Brother CAD (coronary artery disease) History of coronary artery bypass graft x 3 Brother Cancer Brother Unknown whether patient has any health problems Brother , unknown causes No problems noted. Social History household members: spouse Smoking Status: Never smoker alcohol intake: never substance use type: does not use caffeine: Yes Type: coffee Number of servings: 2 HPI HPI Chief Complaint: right great toe pain/redness Details: GABBY KEARNEY, is a 89 M who presents to the office today for complaint of right great toe pain and redness starting yesterday. Patient states that the swelling is not as bad as yesterday. He denies any history of gout or injury to the toe or foot recently. No numbness, tingling or loss of range of motion to the foot or toe. No other associated symptoms or alleviating/aggravat ing factors. ROS Const Constitutional: No other (6 system ROS completed with pertinent findings in the HPI otherwise normal.) Exam Const General: cooperative and healthy appearing Skin General: no rashes or lesions noted Neuro General: patient alert Extrem Other: Erythema and swelling right great toe with pain to palpation. Psych Appearance: grossly normal Mental Status: mental status grossly normal Coding Level of Care Code Off vis,new,level 3 Diagnoses Gouty arthritis of right great toe M10.9 Assessment and Plan Assessment and Plan (1) Gouty arthritis of right great toe: Status: Acute Plan: Medrol Dosepak as prescribed today. Encouraged to get plenty of rest, drink lots of clear liquids, and use Tylenol or Ibuprofen (unless contraindicated) for comfort. Patient also educated on othe (more content not included)... Normal [facility] CBC W Auto Differential pane l (Bld)on 12-06-2024 Basophils (Bld) [#/Vol] 0.08 10*3/uL Normal <0.11 [facility] Comment on above: Order Comment: Speci men Type: BLOOD SPECIMENOrdering Facility: [facility] Address: [address] [place] [address] Performed By: #### 5 7021-8 ####[facility] LABCLIA [id number] [facility] [id number] [place] [address] [place] Basophils/100 WBC (Bld) 1.1 % Normal C [facility] Comment on above: Order Comment: Speci men Type: BLOOD SPECIMENOrdering Facility: [facility] Address: [address] [place] [address] Performed By: #### 5 7021-8 ####[facility] LABCLIA [id number] [place] [address] [place] Differential cell count method Nom (Bld) Auto Normal [facility] Comment on above: Order Comment: Speci men Type: BLOOD SPECIMENOrdering Facility: [facility] Address: [address] [place] [address] Performed By: #### 5 7021-8 ####[facility] LABCLIA [id number] [place] [address] [place] Eosinophils (Bld) [#/Vol] 0.06 10*3/uL Normal <0.46 [facility] Comment on above: Order Comment: Speci men Type: BLOOD SPECIMENOrdering Facility: [facility] Address: [address] [place] [address] Performed By: #### 5 7021-8 ####[facility] LABCLIA [id number] [place] [address] [place] Eosinophils/100 WBC (Bld) 0.8 % Normal [facility] Comment on above: Order Comment: Speci men Type: BLOOD SPECIMENOrdering Facility: [facility] Address: [address] [place] [address] Performed By: #### 5 7021-8 ####[facility] LABCLIA [id number] [place] [address] [place] Erythrocyte distribution width (RBC) [Ratio] 13.3 % Normal 11.5-15.0 [facility] Comment on above: Order Comment: Speci men Type: BLOOD SPECIMENOrdering Facility: [facility] Address: [address] [place] [address] Performed By: #### 5 7021-8 ####[facility] LABCLIA [id number] [place] [address] [place] Hematocrit (Bld) [Volume fraction] 44.0 % Normal 39.0-51.0 [facility] Comment on above: Order Comment: Speci men Type: BLOOD SPECIMENOrdering Facility: [facility] Address: [address] [place] [address] Performed By: #### 5 7021-8 ####[facility] LABCLIA [id number] [place] [address] [place] Hemoglobin (Bld) [Mass/Vol] 14.5 g/dL Normal 13.0-17.0 [facility] Comment on above: Order Comment: Speci men Type: BLOOD SPECIMENOrdering Facility: [facility] Address: [address] [place] [address] Performed By: #### 5 7021-8 ####[facility] LABCLIA [id number] [place] [address] [place] Immature granulocytes (Bld) [#/Vol] 10*3/uL Normal <0.10 [facility] Comment on above: Order Comment: Speci men Type: BLOOD SPECIMENOrdering Facility: [facility] Address: [address] [place] [address] Performed By: #### 5 7021-8 ####[facility] LABCLIA [id number] [place] [address] [place] Immature granulocytes/100 WBC (Bld) 0.3 % Normal [facility] Comment on above: Order Comment: Speci men Type: BLOOD SPECIMENOrdering Facility: [facility] Address: [address] [place] [address] Performed By: #### 5 7021-8 ####[facility] LABCLIA [id number] [place] [address] [place] Lymphocytes (Bld) [#/Vol] 1.74 10*3/uL Normal 1.00-4.00 [facility] Comment on above: Order Comment: Speci men Type: BLOOD SPECIMENOrdering Facility: [facility] Address: [address] [place] [address] Performed By: #### 5 7021-8 ####[facility] LABIA [id number] [place] [id number] [place] Lymphocytes/100 WBC (Bld) 23.3 % Normal [facility] Comment on above: Order Comment: Speci men Type: BLOOD SPECIMENOrdering Facility: [facility] Address: [address] [place] [address] Performed By: #### 5 7021-8 ####[facility] LABIA [id number] [place] [address] [place] MCH (RBC) [Entitic mass] 29.8 pg Normal 26.0-34.0 [facility] Comment on above: Order Comment: Speci men Type: BLOOD SPECIMENOrdering Facility: [facility] Address: [address] [place] [address] Performed By: #### 5 7021-8 ####[facility] LABIA [id number] [place] [address] [place] MCHC (RBC) [Mass/Vol] 33.0 g/dL Normal 30.5-36.0 [facility] Comment on above: Order Comment: Speci men Type: BLOOD SPECIMENOrdering Facility: [facility] Address: [address] [place] [address] Performed By: #### 5 7021-8 ####[facility] LABIA [id number] [place] [id number] [place] MCV (RBC) [Entitic vol] 90.3 fL Normal 80.0-100.0 C [facility] Comment on above: Order Comment: Speci men Type: BLOOD SPECIMENOrdering Facility: [facility] Address: [address] [place] [address] Performed By: #### 5 7021-8 ####[facility] LABCLIA [id number] [address] [address] [place] Monocytes (Bld) [#/Vol] 0.94 10*3/uL High <0.87 [facility] Comment on above: Order Comment: Speci men Type: BLOOD SPECIMENOrdering Facility: [facility] Address: [address] [place] [address] Performed By: #### 5 7021-8 ####[facility] LABCLIA [id number] [facility] [address], [place] [address] [place] Monocytes/100 WBC (Bld) 12.6 % Normal [facility] Comment on above: Order Comment: Speci men Type: BLOOD SPECIMENOrdering Facility: [facility] Address: [address] [place] [address] Performed By: #### 5 7021-8 ####[facility] LABCLIA [id number] [place] [address] [place] Neutrophils (Bld) [#/Vol] 4.62 10*3/uL Normal 1.45-7.50 [facility] Comment on above: Order Comment: Speci men Type: BLOOD SPECIMENOrdering Facility: [facility] Address: [address] [place] [address] Performed By: #### 5 7021-8 ####[facility] LABCLIA [id number] [place] [address] [place] Neutrophils/100 WBC (Bld) 61.9 % Normal [facility] Comment on above: Order Comment: Speci men Type: BLOOD SPECIMENOrdering Facility: [facility] Address: [address] [place] [address] Performed By: #### 5 7021-8 ####[facility] LABCLIA [id number] [place] [id number] [place] Nucleated RBC (Bld) [#/Vol] 10*3/uL Normal <0.01 [facility] Comment on above: Order Comment: Speci men Type: BLOOD SPECIMENOrdering Facility: [facility] Address: [address] [place] [address] Performed By: #### 5 7021-8 ####[facility] LABIA [id number] [place] [address] [place] Nucleated RBC/100 WBC (Bld) [Ratio] 0.0 /100 WBC Normal [facility] Comment on above: Order Comment: Speci men Type: BLOOD SPECIMENOrdering Facility: [facility] Address: [address] [place] [address] Performed By: #### 5 7021-8 ####[facility] LABIA [id number] [place] [address] [place] Platelet mean volume (Bld) [Entitic vol] 9.5 fL Normal 9.0-12.7 [facility] Comment on above: Order Comment: Speci men Type: BLOOD SPECIMENOrdering Facility: [facility] Address: [address] [place] [address] Performed By: #### 5 7021-8 ####[facility] LABIA [id number] [place] [address] [place] Platelets (Bld) [#/Vol] 209 10*3/uL Normal 150-400 [facility] Comment on above: Order Comment: Speci men Type: BLOOD SPECIMENOrdering Facility: [facility] Address: [address] [place] [address] Performed By: #### 5 7021-8 ####[facility] LABIA [id number] [place] [address] [place] RBC (Bld) [#/Vol] 4.87 10*6/uL Normal 4.20-6.00 [facility] Comment on above: Order Comment: Speci men Type: BLOOD SPECIMENOrdering Facility: [facility] Address: [address] [place] [address] Performed By: #### 5 7021-8 ####[facility] LABCLIA [id number] [place] [id number] [place] WBC (Bld) [#/Vol] 7.46 10*3/uL Normal 3.70-11.00 [facility] Comment on above: Order Comment: Speci men Type: BLOOD SPECIMENOrdering Facility: [facility] Address: [address] [place] [id number] Performed By: #### 5 7021-8 ####[facility] LABCLIA [id number] [place] [id number] [facility] [place] CNOVon 12-06-2024 CNOV Office Visit (JOANPWS) GABBY KEARNEY ([id number]) 1935 M Date Time Provider Department 12/06/24 8:40 AM JONATHAN JO During your visit today, we recorded the following information about you: Pulse Blood pressure Weight 72/minute 108/66 80 kg Jonathan Jo APRN.MEDICAL REFERRAL COORDINATOR 12/06/2024 9:01 AM Signed Gabby Kearney is a 89 year old male here for a Medicare wellness visit. Medicare Health Risk Assessment General Health N/A Exercise: Minutes/Day N/A Exercise: Days/Week N/A Alcohol: Daily Use N/A Alcohol: Drinks/Day N/A Alcohol: 6 or more drinks N/A Feel off balance N/A Concerns: Teeth/Dentures N/A Concerns: Sexual function N/A Troubled by feelings N/A Frequency: Eating healthy diet N/A ADLs requiring help N/A Safety precautions in home/vehicle N/A Smoke, vape, chews tobacco N/A Difficulty hearing N/A Difficulty seeing N/A Current Providers Specialists: I have reviewed specialist-related care of the patient in the medical record. Current care team: Patient Care Team: Libertad Julio MD as PCP - General (Family Medicine) Podlogar, AMADEO Vanegas.CASPER as Planner/Scheduler (Family Medicine) Jonathan Jo APRN.CNP as Planner/Scheduler (Family Medicine) Medical/Family history review Reviewed and updated problem list, medical/surgical/fam demetrius/social history, medications, and allergies. Opioid use review Opioid Medications (last 90 days) 12/06/2024 Opioid Medications oxycodone HCl 5 mg q 4 H PRN ORAL (5 mg cap) Details Patient-reported Prescribed No opioid use on file in the last 90 days Does patient have risk factors for opioid abuse? No Pain overview Current pain concerns and treatment plan reviewed. Patient stable on current treatment plan. Anxiety/Depression screening (Lower risk for depression) (Lower risk for anxiety) Recommendation: no further intervention at this time Cognitive screening Cognitive screening reviewed and Recommended referral for further evaluation (score 0-2). Functional Observation Was the patient's Timed Up AND Go test unsteady or >= 12 seconds? No Advance Care Planning Patient did not wish or was not able to name a surrogate decision maker or provide an advance care plan Measurements BP 108/66 Pulse 72 Wt 80 kg (176 lb 5.9 oz) BMI 25.31 kg/m? Vision Screening: Follows with optometry/ophthalmol ogy Assessment/Plan Medicare annual wellness visit, subsequent (Z00.00) - Counseled on healthy diet and regular exercise - Fall avoidance information provided - Personalized prevention plan provided - Discussed need for and benefit of weight loss. BMI 25.31 kg/(m2) Chief Complaint Patient presents with: Medicare Wellness Exam HPI Gabby Kearney is a 89 year old male who presents here today for Above Complaints.. Patient presents for routine follow up. Patient reports he has occasional right flank pain but does not have it currently. Past medical history, appointments, medications, allergies reviewed. Previous Medical History PAST MEDICAL HISTORY Diagnosis Date Anemia of chronic disease Atrial flutter (HCC) CAD (coronary artery disease) 2010 CABG x3, Seeing Dr. Tineo CHF (congestive heart failure) (HCC) CKD (chronic kidney disease), stage III (HCC) Hiatal hernia with GERD 12/2016 UGI 01/10/17 at [facility] Hyperlipidemia Hypertension Inguinal hernia, bilateral Ischemic cardiomyopathy 06/2021 Pacemaker Perforated bowel (HCC) 06/2021 Pneumonia Presence of combination internal cardiac defibrillator (ICD) and pacemaker 2010 Refusal of statin medication by patient TIA (transient ischemic attack) 2018 Previous Surgical History PAST SURGICAL HISTORY Procedure [...] on File Prior to Visit Medication Sig oxyCODONE ir (OXYIR) 5 mg capsule Take 5 mg by mouth every 4 hours as needed for pain. tiZANidine (ZANAFLEX) 2 mg tablet Take 2 mg by mouth every 8 hours as needed (muscle strain). Acetaminophen 500 mg cap Take 1 capsule by mouth daily at bedtime. carvedilol (COREG) 3.125 mg tablet Take 1 tablet by mouth two times a day with meals. furosemide (LASIX) 20 mg tablet Take 1 tablet by mouth two times a day. Ascorbic Acid 500 mg chew Take 500 mg by mouth once daily. cholecalciferol, vitamin D3, (VITAMIN D3 ORAL) Take 1 tablet by mouth once daily. apixaba (more content not included)... Normal [facility] Comprehensive metabolic 2000 panelon 12-06-2024 Albumin [Mass/Vol] 4.0 g/dL Normal 3.9-4.9 [facility] Comment on above: Order Comment: Speci men Type: BLOOD SPECIMENOrdering Facility: [facility] Address: [address] [place] [address] Performed By: #### 2 4323-8, LIPNF ####[facility] LABCLIA [id number] [place] [address] [place] ALP [Catalytic activity/Vol] 64 U/L Normal 38-113 [facility] Comment on above: Order Comment: Speci men Type: BLOOD SPECIMENOrdering Facility: [facility] Address: [address] [place] [address] Performed By: #### 2 4323-8, LIPNF ####[facility] LABCLIA [id number] [place] [address] [place] ALT [Catalytic activity/Vol] 15 U/L Normal 10-54 [facility] Comment on above: Order Comment: Speci men Type: BLOOD SPECIMENOrdering Facility: [facility] Address: [address] [place] [address] Performed By: #### 2 4323-8, LIPNF ####[facility] LABCLIA [id number] [place] [address] [place] Anion gap [Moles/Vol] 12 mmol/L Normal 8-15 [facility] Comment on above: Order Comment: Speci men Type: BLOOD SPECIMENOrdering Facility: [facility] Address: [address] [place] [address] Performed By: #### 2 4323-8, LIPNF ####[facility] LABCLIA [id number] [place] [address] [place] AST [Catalytic activity/Vol] 26 U/L Normal 14-40 [facility] Comment on above: Order Comment: Speci men Type: BLOOD SPECIMENOrdering Facility: [facility] Address: [address] [place] [address] Performed By: #### 2 4323-8, LIPNF ####[facility] LABCLIA [id number] [place] [id number] [place] Bilirubin [Mass/Vol] 0.6 mg/dL Normal 0.2-1.3 [facility] Comment on above: Order Comment: Speci men Type: BLOOD SPECIMENOrdering Facility: [facility] Address: [address] [place], [place] [address] Performed By: #### 2 4323-8, LIPNF ####[facility] LABCLIA [id number] [address] [address] [place] Calcium [Mass/Vol] 9.4 mg/dL Normal 8.5-10.2 [facility] Comment on above: Order Comment: Speci men Type: BLOOD SPECIMENOrdering Facility: [facility] Address: [address] [place] [address] Performed By: #### 2 4323-8, LIPNF ####[facility] LABCLIA [id number] [place] [address] [place] Chloride [Moles/Vol] 99 mmol/L Normal 98-107 [facility] Comment on above: Order Comment: Speci men Type: BLOOD SPECIMENOrdering Facility: [facility] Address: [address] [place] [address] Performed By: #### 2 4323-8, LIPNF ####[facility] LABCLIA [id number] [place] [address] [place] CO2 [Moles/Vol] 26 mmol/L Normal 22-30 [facility] Comment on above: Order Comment: Speci men Type: BLOOD SPECIMENOrdering Facility: [facility] Address: [address] [place] [address] Performed By: #### 2 4323-8, LIPNF ####[facility] LABCLIA [id number] [place] [address] [place] Creatinine [Mass/Vol] 2.05 mg/dL High 0.73-1.22 [facility] Comment on above: Order Comment: Speci men Type: BLOOD SPECIMENOrdering Facility: [facility] Address: [address] [place] [address] Performed By: #### 2 4323-8, LIPNF ####[facility] LABCLIA [id number] [place] [address] [place] Creatinine and Glomerular filtration rate.predicted panel (S/P/Bld) 31 mL/min/1.73m??? Low >=60 [facility] Comment on above: Order Comment: Bess quintero Type: BLOOD SPECIMENOrdering Facility: [facility] Address: [address] [place] [address] Result Comment: Maddi mated Glomerular Filtration Rate (eGFR) is calculated using the 2020 CKD-EPI creatinine equation. This equation utilizes serum creatinine, sex, and age as parameters. The creatinine assay has traceable calibration to isotope dilution-mass spectrometry. Refer to KDIGO guidelines for clinical interpretation. In patients with unstable renal function, e.g. those with acute kidney injury, the eGFR may not accurately reflect actual GFR. Performed By: #### 2 4323-8, LIPNF ####[facility] LABCLIA [id number] [place] [address] [place] Glucose [Mass/Vol] 81 mg/dL Normal 74-99 [facility] Comment on above: Order Comment: Bess quintero Type: BLOOD SPECIMENOrdering Facility: [facility] Address: [address] [place] [address] Result Comment: The [place] Diabetes Association (ADA) provides guidance for cutoff values for fasting glucose and random glucose. The ADA defines fasting as no caloric intake for at least 8 hours. Fasting plasma glucose results between 100 to 125 mg/dL indicate increased risk for diabetes (prediabetes). Fasting plasma glucose results greater than or equal to 126 mg/dL meet the criteria for diagnosis of diabetes. In the absence of unequivocal hyperglycemia, results should be confirmed by repeat testing. In a patient with classic symptoms of hyperglycemia or hyperglycemic crisis, random plasma glucose results greater than or equal to 200 mg/dL meet the criteria for diagnosis of diabetes. Reference: Standards of Medical Care in Diabetes 2016, [place] Diabetes Association. Diabetes Care. 2016.39(Suppl 1). Performed By: #### 2 4323-8, LIPNF ####[facility] LABIA [id number] [place] [address] [place] Potassium [Moles/Vol] 4.4 mmol/L Normal 3.7-5.1 [facility] Comment on above: Order Comment: Bess quintero Type: BLOOD SPECIMENOrdering Facility: [facility] Address: [address] [place] [address] Performed By: #### 2 4323-8, LIPNF ####[facility] LABCLIA [id number] [place] [id number] [place] Protein [Mass/Vol] 7.8 g/dL Normal 6.3-8.0 [facility] Comment on above: Order Comment: Speci men Type: BLOOD SPECIMENOrdering Facility: [facility] Address: [address] [place] [address] Performed By: #### 2 4323-8, LIPNF ####[facility] LABCLIA [id number] [place] [address] [place] Sodium [Moles/Vol] 137 mmol/L Normal 136-144 [facility] Comment on above: Order Comment: Speci men Type: BLOOD SPECIMENOrdering Facility: [facility] Address: [address] [place] [address] Performed By: #### 2 4323-8, LIPNF ####[facility] LABCLIA [id number] [place] [address] [place] Urea nitrogen [Mass/Vol] 49 mg/dL High 9-24 [facility] Comment on above: Order Comment: Speci men Type: BLOOD SPECIMENOrdering Facility: [facility] Address: [address] [place] [address] Performed By: #### 2 4323-8, LIPNF ####[facility] LABCLIA [id number] [place] [id number] [place] LIPID PANEL, NONFASTINGon Cholesterol [Mass/Vol] 165 mg/dL Normal <200 [facility] Comment on above: Order Comment: Speci men Type: BLOOD SPECIMENOrdering Facility: [facility] Address: [address] [place] [address] Result Comment: <200 mg/dL, Desirable 200-239 mg/dL, Borderline high >239 mg/dL, High Performed By: #### 2 4323-8, LIPNF ####[facility] LABCLIA [id number] [place] [address] [place] HDL CHOLESTEROL, NF 51 mg/dL Normal >39 [facility] Comment on above: Order Comment: Bess ingrid Type: BLOOD SPECIMENOrdering Facility: [facility] Address: [address] [place] [address] Result Comment: 40-5 9 mg/dL, Acceptable >59 mg/dL, High: Negative risk factor for coronary heart disease <40 mg/dL, Low: Positive risk factor for coronary heart disease Performed By: #### 2 4323-8, LIPNF ####[facility] LABCLIA [id number] [address] LDL CHOLESTEROL CALCULATED, NF 94 mg/dL Normal <100 [facility] Comment on above: Order Comment: Bess ingrid Type: BLOOD SPECIMENOrdering Facility: [facility] Address: [address] [place] [address] Result Comment: <100 mg/dL, Optimal 100-129 mg/dL, Near optimal/above optimal 130-159 mg/dL, Borderline high 160-189 mg/dL, High >189 mg/dL, Very high Secondary prevention optimal LDL Cholesterol levels are recommended to be <70 mg/dL LDL cholesterol is calculated using the Mosquera-NIH equation. Performed By: #### 2 4323-8, LIPNF ####[facility] LABIA [id number] [address] OF [facility] LDL/HDL RATIO, NF 1.84 mg/dL Normal <2.54 [facility] Comment on above: Order Comment: Bess quintero Type: BLOOD SPECIMENOrdering Facility: [facility] Address: [address] [place] [address] Result Comment: Liza can: 1. National Cholesterol Education Program ATP III Guideline At-A-Glance Quick Desk Reference: National Heart, Lung, and Blood [place]. National Institutes of Health. 2001: NIH Publication No. 01-3305. 2. An International Atherosclerosis Society position paper: global recommendations for the management of dyslipidemia: executive summary, Atherosclerosis. 2014: 232(2):410-413. Performed By: #### 2 4323-8, LIPNF ####[facility] LABCLIA [id number] [address] [place] [address] [place] NON HDL CHOL, NF 114 mg/dL Normal <130 [facility] Comment on above: Order Comment: Speci men Type: BLOOD SPECIMENOrdering Facility: [facility] Address: [address] [place] [address] Result Comment: <130 mg/dL, Optimal 130-159 mg/dL, Near optimal/above optimal 160-189 mg/dL, Borderline high 190-219 mg/dL, High >219 mg/dL, Very high Secondary prevention optimal non HDL Cholesterol levels are recommended to be <100 mg/dL Performed By: #### 2 4323-8, LIPNF ####[facility] LABCLIA [id number] [address], [facility] T CHOL/HDL RATIO NF 3.24 mg/dL Normal <5.10 [facility] Comment on above: Order Comment: Kyriei men Type: BLOOD SPECIMENOrdering Facility: [facility] Address: [address] [place] [address] Performed By: #### 2 4323-8, LIPNF ####[facility] LABCLIA [id number] [address], [facility] [facility] [place] TRIGLYCERIDES, NF 110 mg/dL Normal <150 [facility] Comment on above: Order Comment: Speci men Type: BLOOD SPECIMENOrdering Facility: [facility] Address: [address] [place] [address] Result Comment: <150 mg/dL, Normal 150-199 mg/dL, Borderline high 200-499 mg/dL, High >499 mg/dL, Very high Performed By: #### 2 4323-8, LIPNF ####[facility] LABCLIA [id number] [place] [address] OF [facility] VLDL CHOLESTEROL, NF 18 mg/dL Normal <30 [facility] Comment on above: Order Comment: Speci men Type: BLOOD SPECIMENOrdering Facility: [facility] Address: [address] [place] [address] Performed By: #### 2 4323-8, LIPNF ####[facility] LABCLIA [id number] [place] [address] [place] Cardiology Visit Reporton Cardiology Visit Report [facility] [address] [place], [place] [id number] OFFICE VISIT Date of Service: 11/19/24 MR#: [id number] Acct: [id number] Name: GABBY KEARNEY Rep #: [id number] : 1935 Provider: ALDAIR Garcia Age/Sex: 89/M Location: [facility] Status: Signed HPI HPI History of Present Illness Details: GABBY KEARNEY, is a 89 M who presents to the office today for a cardiovascular outpatient follow-up. He has a history of coronary artery disease with coronary bypass surgery in 2010 with a left internal mammary artery to the left anterior descending artery, saphenous vein graft to diagonal branch, and a saphenous vein graft to posterior circumflex artery branch. He is also has a history ischemic cardiomyopathy, status post ICD implantation for reduced EF, atrial fibrillation, TIA in January 2018, and CKD. He had his ICD generator changed out in 10/2023. From a cardiac standpoint, patient is doing well. He does not have any chest discomfort/heaviness /tightness. He does not have any worsening symptoms of shortness of breath. He denies any PND. He does not have any orthopnea. He does not have any symptoms of congestive heart failure. He does not have any palpitations that he is aware of. He does not have any lightheadedness or dizziness. He does not have any near-syncope or syncope. He does not have any lower extremity edema. He does not have any symptoms of claudication. [facility] Vital Signs 06/17/24 12:50 11/19/24 12:55 11/19/24 13:01 Height 5 ft 11 in 5 ft 11 in 5 ft 11 in Weight: 178 lb 178 lb BMI 24.8 24.8 BP 109/56 L Blood Pressure Location Lt brachial Lt brachial Position Sitting Sitting Respiration 18 18 Pulse 82 Pulse Source Monitor Monitor Pulse Oximetry (%) 94 Intake Visit Reasons: O/D for FU/Sees Sabina @ 1:30 Stitcher Operator Required: No Is patient in pain?: No Allergies No Known Allergies Allergy (Verified 11/19/24 12:58) Medications ???Medication ???Instructions ???Recorded ???Confirmed ???Type cholecalciferol (vitamin D3) 25 25 mcg PO DAILY VITAMIN SUPPLEMENT 12/19/19 11/19/24 History mcg (1,000 unit) capsule apixaban 2.5 mg tablet (Eliquis) 2.5 mg PO BID BLOOD THINNER 11/19/24 History carvedilol 3.125 mg tablet (Coreg) 12.5 mg PO BID 11/19/24 11/19/24 History furosemide 20 mg tablet 20 mg PO BID 11/19/24 11/19/24 His tory Ejection fraction %: 25 Have you fallen in the past year?: Yes PFSH Medical History Olecranon bursitis, left elbow Left elbow pain Chondrocalcinosis of left knee Hypertension Wears glasses High cholesterol Injury of head and neck Cardiology follow-up encounter History of echocardiogram History of stress test Persistent atrial fibrillation Non-sustained ventricular tachycardia Secondary pulmonary arterial hypertension Transient ischemic attack Atherosclerotic heart disease of [place] coronary artery without angina pectoris Hyperlipidemia Ischemic cardiomyopathy Abnormal electrocardiogram [ECG] [EKG] Paroxysmal atrial fibrillation Encounter for long-term current use of high risk medication Palpitations CKD (chronic kidney disease) stage 3, GFR 30-59 ml/min Surgical History Hx of bilateral cataract extraction History of implantable cardiac defibrillator (ICD) Status post laparoscopic colectomy 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 Brother CAD (coronary artery disease) History of coronary artery bypass graft x 3 Brother Cancer Brother Unknown whether patient has any health problems Brother , unknown causes No problems noted. Social History household members: spouse Smoking Status: Never smoker alcohol intake: never substance use type: does not use caffeine: Yes Type: coffee Number of servings: 2 ROS Const Const: Negative for fatigue, weakness, headache(s) or frequent falls Eyes Eyes: Negative for blurry vision ENT ENT: Negative for headache(s), dizziness or Nosebleed/epistaxis Cardio Chest Pain: No Palpitations: No Edema: None Muscle aches with walking: None Resp Respiratory: Negative for SOB with activity, SOB at rest or SOB orthopnea SOB lying down GI GI: Negative nausea, vomiting, heartburn, bright, red blood in stools or black,tarry stools (more content not included)... Normal [facility] Pacemaker Checkon 11-19-2024 Pacemaker Check [facility] [address] [place] [address]. [address] [place] [address] Pacemaker Check Date of Service: 11/19/24 1559 MR#: [id number] Acct: [id number] Name: GABBY KEARNEY Rep #: [id number] : 1935 From: Tamara Nino Age/Sex: 89/M Location: [facility] Status: Signed Billing Codes ICD Device Billin ICD Dev Prog Eval, Dual Assessment and Plan Assessment and Plan (1) Persistent atrial fibrillation: Status: Acute (2) Ischemic cardiomyopathy: Status: Chronic (3) Presence of implantable cardioverter-defibri llator (ICD): Status: Chronic (4) Non-sustained ventricular tachycardia: Status: Chronic 11/19/24 1603 Date Tamara Marquez Signature: Date (if applicable) CC: [facility] 09-13-2024 [facility] Telephone (FAMPWS) GABBY KEARNEY ([id number]) 1935 M Date Time Provider Department 09/13/24 LIBERTAD JULIO [facility] During your visit today, we recorded the following information about you: Judi Garcia LPN 09/13/2024 1:17 PM Signed ----- Message from Libertad Julio MD sent at 09/12/2024 8:54 PM EST ----- CT chest shows stable pulmonary nodules without new or suspicious findings. Mild to moderate emphysema noted along with new sclerosis of T2 and T7 vertebral bodies. Unless patient has had recent fall or injury to his back, would recommend MRI of the thoracic spine to further evaluate spine changes for possible malignancy vs compression injury. If agreeable, will place MRI order. Judi Garcia LPN 09/13/2024 1:21 PM Signed Patient notified and verbalized understanding. Judi Garcia LPN Allergies As of Date: 09/13/2024 (No Known Allergies) Date Reviewed: 06/10/2024 Reviewed by: Yanira Rueda LPN - Fully Assessed Prescriptions as of 09/13/2024 - oxyCODONE ir (OXYIR) 5 mg capsule Take 5 mg by mouth every 4 hours as needed for pain. - tiZANidine (ZANAFLEX) 2 mg tablet Take 2 mg by mouth every 8 hours as needed (muscle strain). - Acetaminophen 500 mg cap Take 1 capsule by mouth daily at bedtime. - carvedilol (COREG) 3.125 mg tablet Take 1 tablet by mouth two times a day with meals. - furosemide (LASIX) 20 mg tablet Take 1 tablet by mouth two times a day. - Ascorbic Acid 500 mg chew Take 500 mg by mouth once daily. - cholecalciferol, vitamin D3, (VITAMIN D3 ORAL) Take 1 tablet by mouth once daily. - apixaban (ELIQUIS) 2.5 mg tab tab(s) Take 1 tablet by mouth twice daily. Problem List As Of Date 09/13/2024 Noted Resolved Spigelian Hernia [K43.9] 07/27/2009 Inguinal Hernia Bilateral 07/27/2009 Rectal bleeding [K62.5] 10/19/2010 09/15/2017 Internal hemorrhoids [K64.8] 10/25/2010 Diverticulosis of colon [K57.30] 10/25/2010 CAD (coronary artery disease) [I25.10] 08/14/2010 Pneumonia [J18.9] 10/31/2016 Presence of combination internal cardiac defibr*08/14/2010 Hypertension [I10] Hiatal hernia with GERD [K44.9, K21.9] 12/12/2016 Hyperlipidemia [E78.5] Stage 3a chronic kidney disease (HCC) [N18.31] TIA (transient ischemic attack) [G45.9] 08/14/2017 Atrial flutter (HCC) [I48.92] Refusal of statin medication by patient [Z53.20]09/26/2019 Hypertensive kidney disease with stage 3a chron*07/13/2021 Stage 3b chronic kidney disease (HCC) [N18.32] 04/11/2022 Chronic kidney disease, stage 4 (severe) (HCC) *11/13/2023 Encounter Status:Closed by JUDI GARCIA on 09/13/[address] [facility] [address] CHEST WO IVCONon 09-10-19 CT CHEST WO IVCON * * *Final Report* * * DATE OF EXAM: Sep 10 2024 8:31AM [facility] 0541 - CT CHEST WO IVCON / PROCEDURE REASON: Lung nodules * * * * Physician Interpretation * * * * EXAMINATION: CHEST CT WITHOUT CONTRAST CLINICAL HISTORY: Lung nodule follow-up Technique: Spiral CT acquisition of the chest from the thoracic inlet to the upper abdomen without contrast. MQ: [id number] CT Radiation dose: Integrated Dose-length product (DLP) for this visit = 244 mGy*cm CT Dose Reduction Employed: Automated exposure control(AEC) and iterative recon Comparison: 02/02/2022 RESULT: Limitations: None. Lines, tubes, and devices: ICD leads terminate in the RIGHT atrium and RIGHT ventricle. Lung parenchyma and airways: * Mild to moderate centrilobular paraseptal emphysema. * Scarring in the posterior aspect of the RIGHT upper lobe and medial LEFT lower lobe is unchanged. Small posterior RIGHT fat-containing Bochdalek hernia. * A few calcified granulomas are unchanged. * Unchanged 3 mm juxtapleural nodule in the RIGHT apex on series 7 image 32. * Unchanged 3 mm juxtapleural nodule along the minor fissure on series 7 image 117. * Unchanged 3 mm posterior LEFT upper lobe nodule on series 7 image 68. * No appreciable new, enlarging, or suspicious pulmonary nodules. Pleural space: No pleural effusion. No pleural thickening. Lower neck, lymph nodes, and mediastinum: The imaged thyroid gland is normal. A few nonenlarged calcified mediastinal lymph nodes are unchanged indicative of prior granulomatous disease. No pathologically enlarged lymph nodes in the chest. Heart, pericardium, and thoracic vessels: Prior median sternotomy with coronary artery bypass. Bones and soft tissues: No destructive bone lesion. Linear band of sclerosis seen in the T2 and T7 vertebral body seen on series 9 image 70. Chronic T12 anterior superior endplate compression fracture. Upper abdomen: Multiple simple hepatic cysts. Multiple calcified granulomas in the spleen. Localizer images: Unremarkable. IMPRESSION: 1. Unchanged small pulmonary nodules. No new, enlarging, or suspicious pulmonary nodules. 2. Mild to moderate centrilobular paraseptal emphysema. 3. New linear bands of sclerosis in the T2 and T7 vertebral bodies. Differential considerations include subacute trabecular compression injuries versus subtle metastatic disease. Consider MRI of the thoracic spine for better characterization unless there is recent history of trauma. Test Architect: PSCB Transcribe Date/Time: Sep 12 2024 10:22A Dictated by : MICHELLE KNOX MD This examination was interpreted and the report reviewed and electronically signed by: MICHELLE KNOX MD on Sep 12 2024 10:28AM EST [id number] [facility] Pacemaker Checkon 08-19-2024 Pacemaker Check [facility] [address] [place] [address] Pacemaker Check Date of Service: 08/19/24 1737 MR#: [id number] Acct: [id number] Name: GABBY KEARNEY Rep #: [id number] : 1935 From: Tamara Nino Age/Sex: 89/M Location: [facility] Status: Signed Billing Codes ICD Device Billin ICD Dev Prog Eval, Dual Assessment and Plan Assessment and Plan (1) Ischemic cardiomyopathy: Status: Chronic (2) Presence of implantable cardioverter-defibri llator (ICD): Status: Chronic 08/19/24 173 Date Tamara Nino Jimmy Signature: Date (if applicable) CC: Normal [facility] Cardiology Visit Reporton Cardiology Visit Report [facility] [address] [place] [address] OFFICE VISIT Date of Service: 06/17/24 MR#: [id number] Acct: [id number] Name: GABBY KEARNEY Rep #: [id number] : 1935 Provider: ALDAIR Garcia Age/Sex: 89/M Location: [facility] Status: Signed HPI HPI History of Present Illness Details: GABBY KEARNEY, is a 89 M who presents to the office today for a cardiovascular outpatient follow-up. He has a history of coronary artery disease with coronary bypass surgery in 2010 with a left internal mammary artery to the left anterior descending artery, saphenous vein graft to diagonal branch, and a saphenous vein graft to posterior circumflex artery branch. He is also has a history ischemic cardiomyopathy, status post ICD implantation for reduced EF, atrial fibrillation, TIA in January 2018, and CKD. He had his ICD generator changed out in 10/2023. He is taking his lasix every day. His recovering from his fall. His breathing is okay. He does not have any syncope. He did have one episode lightheadedness. He does not have any edema. He does not have any chest pain. 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 Operator Required: No Is patient in pain?: No Allergies No Known Allergies Allergy (Verified 06/17/24 12:49) Medications ???Medication ???Instructions ???Recorded ???Confirmed ???Type cholecalciferol (vitamin D3) 25 25 mcg PO DAILY VITAMIN SUPPLEMENT 12/19/19 05/30/24 History mcg (1,000 unit) capsule apixaban 2.5 mg tablet (Eliquis) 2.5 mg PO BID BLOOD THINNER 05/07/21 06/17/24 History acetaminophen 500 mg tablet 1,000 mg (2 x 500 mg) PO Q8H #1 TAB 06/03/24 Rx (Acetaminophen Extra Strength) carvedilol 3.125 mg tablet (Coreg) 3.125 mg PO BID #60 tabs 06/03/24 06/17/24 Rx furosemide 20 mg tablet 20 mg PO DAILY #30 tabs 06/03/24 06/17/24 Rx lidocaine 5 % topical patch 2 patch topical DAILY #30 ea 06/03/24 06/17/24 Rx oxycodone 5 mg tablet 5 mg PO Q4H PRN PRN Pain Score 06/03/24 06/17/24 Rx 4-10 5 days #30 tabs tizanidine 2 mg tablet 2 mg PO Q8H PRN PRN Muscle 06/03/24 Rx spasm/strain 5 days #15 tabs Have you fallen in the past year?: Yes (see hospital stay) Nurse's Note: no medication list, does not know what medication he is taking [facility] Medical History Olecranon bursitis, left elbow Left elbow pain Chondrocalcinosis of left knee Hypertension Wears glasses High cholesterol Injury of head and neck Cardiology follow-up encounter History of echocardiogram History of stress test Persistent atrial fibrillation Non-sustained ventricular tachycardia Secondary pulmonary arterial hypertension Transient ischemic attack Atherosclerotic heart disease of [place] coronary artery without angina pectoris Hyperlipidemia Ischemic cardiomyopathy Abnormal electrocardiogram [ECG] [EKG] Paroxysmal atrial fibrillation Encounter for long-term current use of high risk medication Palpitations CKD (chronic kidney disease) stage 3, GFR 30-59 ml/min Surgical History Hx of bilateral cataract extraction History of implantable cardiac defibrillator (ICD) Status post laparoscopic colectomy 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 Brother CAD (coronary artery disease) History of coronary artery bypass graft x 3 Brother Cancer Brother Unknown whether patient has any health problems Brother , unknown causes No problems noted. Social History household members: spouse Smoking Status: Never smoker alcohol intake: never substance use type: does not use caffeine: Yes Type: coffee Number of servings: 2 ROS Const Const: Negative for fatigue, weakness, fever(s) or headache(s) Eyes Eyes: Negative for blind spots, loss of peripheral vision or transient loss of vision ENT ENT: Negative for headache(s), dizziness, tinnitus or Nosebleed/epistaxis Cardio Chest Pain: No Palpitations: No Edema: None Muscle aches with walking: None Resp Respiratory: Negative for SOB with activity, SOB (more content not included)... [facility] 06-11-2024 [facility] Telephone (FAMPWS) GABBY KEARNEY ([id number]) 1935 M Date Time Provider Department 06/11/24 LIBERTAD JULIO During your visit today, we recorded the following information about you: Yanira Rueda LPN 06/11/2024 7:45 AM Signed ----- Message from Libertad Julio MD sent at 06/11/2024 7:28 AM EDT ----- Despite clinical improvement in his back pain and no signs of heart failure on his exam, patient's BNP is elevated to 4,400 on these labs. In the hospital, it was reported to be in the 300's. His weight was improving slowly on his home scale with higher dose of lasix. I would have him continue his current regimen and call to schedule earlier appointment with his wallpaperer. Continue to check daily weights and call with increase in weight as discussed in office or with new symptoms of leg swelling, SOB, fatigue, chest pain, or palpitation. Go to the ER with severe symptoms. Despite increase in his lasix to 20 mg BID, kidney function and potassium level remain stable. Continue current regimen. Please fax results to patient's wallpaperer. Yanira Rueda LPN 06/11/2024 10:56 AM Signed Contacted patient by phone and reviewed results and recommendations with him Patient voiced understanding. Results forwarded to [facility] as recommended. Yanira Rueda LPN Allergies As of Date: 06/11/2024 (No Known Allergies) Date Reviewed: 06/10/2024 Reviewed by: Yanira Rueda LPN - Fully Assessed Reason for Visit: Results [95] Prescriptions as of 06/11/2024 - oxyCODONE ir (OXYIR) 5 mg capsule Take 5 mg by mouth every 4 hours as needed for pain. - tiZANidine (ZANAFLEX) 2 mg tablet Take 2 mg by mouth every 8 hours as needed (muscle strain). - Acetaminophen 500 mg cap Take 1 capsule by mouth daily at bedtime. - carvedilol (COREG) 3.125 mg tablet Take 1 tablet by mouth two times a day with meals. - furosemide (LASIX) 20 mg tablet Take 1 tablet by mouth two times a day. - Ascorbic Acid 500 mg chew Take 500 mg by mouth once daily. - cholecalciferol, vitamin D3, (VITAMIN D3 ORAL) Take 1 tablet by mouth once daily. - apixaban (ELIQUIS) 2.5 mg tab tab(s) Take 1 tablet by mouth twice daily. Problem List As Of Date 06/11/2024 Noted Resolved Spigelian Hernia [K43.9] 07/27/2009 Inguinal Hernia Bilateral 07/27/2009 Rectal bleeding [K62.5] 10/19/2010 09/15/2017 Internal hemorrhoids [K64.8] 10/25/2010 Diverticulosis of colon [K57.30] 10/25/2010 CAD (coronary artery disease) [I25.10] 08/14/2010 Pneumonia [J18.9] 10/31/2016 Presence of combination internal cardiac defibr*08/14/2010 Hypertension [I10] Hiatal hernia with GERD [K44.9, K21.9] 12/12/2016 Hyperlipidemia [E78.5] Stage 3a chronic kidney disease (HCC) [N18.31] TIA (transient ischemic attack) [G45.9] 08/14/2017 Atrial flutter (HCC) [I48.92] Refusal of statin medication by patient [Z53.20]09/26/2019 Hypertensive kidney disease with stage 3a chron*07/13/2021 Stage 3b chronic kidney disease (HCC) [N18.32] 04/11/2022 Chronic kidney disease, stage 4 (severe) (HCC) *11/13/2023 Encounter Status:Closed by YANIRA RUEDA on 06/11/24 [facility] 06-10-2024 CNOV Office Visit (JONAPWS) GABBY KEARNEY ([id number]) 1935 M Date Time Provider Department 06/10/24 10:00 AM LIBERTAD JULIO During your visit today, we recorded the following information about you: Pulse Respiration Blood pressure Weight 70/minute 16/minute 100/62 80.5 kg Libertad Julio MD 06/11/2024 2:59 PM Signed Chief Complaint Patient presents with: ER F/U: With back pain/generalized pain HPI Gabby Kearney is a 89 year old male who presents here today for Hospital Discharge Follow up. Accompanied today by his daughter Martha. Patient admitted to [facility] from 05/30 to 06/03 after presenting to the ER with intractable back pain after a fall from ladder, 2 steps up, onto concrete. Complained at that time of pleuritic pain in the mid back with SOB. Found to be hypoxic at 87% on RA, requiring [address] chest, abdomen, and pelvis obtained which was negative for acute fractures or bleed, but did notes mild interstitial edema on the lungs with right mid lung nodule. Will need f/u CT based on Fleischner guidelines. BNP elevated at 384. CXR negative for infiltrate. CT brain unremarkable. Given lidocaine patch, tylenol, and oxycodone, muscle relaxants, and gabapentin for pain while inpatient. Hpoxia and pain improved during course of his hospital stay. Did not require oxygen on discharge. Echo obtained during stay with severe LV dysfunction and EF 25% with pulmonary artery pressure of 50 mmHg. Lasix dosage increased from 20 mg daily to BID and reduced Coreg to 3.125 mg BID due to low BP. Discussed checking daily weights and to f/u with cardiology with more than 2-3 lbs weight gain in 24 hours. Discharged home with recommendations to f/u with our office in 1-2 weeks. Since discharge, patient's back pain is improving slowly. Today, described as 4/10 over his mid back. Also complaining of left posterior hip pain. Treating with lidocaine patches TID, Oxycodone at night, and Tylenol 500 mg QHS which does help. Has not needed tizanidine. No recurrent falls. Also states that he has some pain over the left lower anterior ribs with deep inspiration. Has been able to ambulate without assistance and has been able to use exercise bike. Checking daily weights as requested and weight has droppped from 173.8 to 169 this morning. Due for CMP today. Not checking BP at home. Denies lightheadedness/dizz iness, chest pain, palpitations, SOB, LE edema. Patient has follow up appointment with cardiology in July for pacemaker/defibrilla tor check and again in August with Dr. Tineo. Past medical history, appointments, medications, allergies reviewed. Previous Medical History PAST MEDICAL HISTORY Diagnosis Date Anemia of chronic disease Atrial flutter (HCC) CAD (coronary artery disease) 2010 CABG x3, Seeing Dr. Tineo CKD (chronic kidney disease), stage III (HCC) Hiatal hernia with GERD 12/2016 UGI 01/10/17 at [facility] Hyperlipidemia Hypertension Inguinal hernia, bilateral Ischemic cardiomyopathy [...] on File Prior to Visit Medication Sig carvedilol (COREG) 6.25 mg tablet Take 1 tablet by mouth two times a day with meals. Ascorbic Acid 500 mg chew Take 500 mg by mouth once daily. cholecalciferol, vitamin D3, (VITAMIN D3 ORAL) Take 1 tablet by mouth once daily. apixaban (ELIQUIS) 2.5 mg tab tab(s) Take 1 tablet by mouth twice daily. No current facility-administere d medications on file prior to visit. Social History Social History Tobacco Use Smoking status: Never Smokeless tobacco: Never Tobacco comments: Father smoked occasional cigar. 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 Substance Use Topics Alcohol use: No Drug use: No Review of Symptoms REVIEW OF SYSTEMS GENERAL: No weight loss, malaise or fevers RESPIRATORY: See HPI CARDIOVASCULAR: See HPI GI: No nausea, vomiting, or diarrhea SKIN: Negative for lesions, rash, and itching EXAM: BP 100/62 Pulse 70 Resp 16 Wt 80.5 kg (177 lb 7.2 oz) SpO2 96% BMI 25.46 kg/m? General Appeara (more content not included)... [facility] GABBY KEARNEY ([id number]) 1935 M Date Time Provider Department 06/10/24 [facility] During your visit today, we recorded the following information about you: Gladys Ontiveros LPN 06/10/2024 1:25 PM Signed ----- Message from Libertad Julio MD sent at 06/10/2024 1:01 PM EDT ----- Xray shows arthritis changes to his left hip without fracture. No change in regimen based on these results. Gladys Ontiveros LPN 06/10/2024 1:27 PM Signed Patient telephoned and notified of results and provider update. Gladys Ontiveros LPN Allergies As of Date: 06/10/2024 (No Known Allergies) Date Reviewed: 06/10/2024 Reviewed by: Yanira Rueda LPN - Fully Assessed Reason for Visit: Results [95] Prescriptions as of 06/10/2024 - oxyCODONE ir (OXYIR) 5 mg capsule Take 5 mg by mouth every 4 hours as needed for pain. - tiZANidine (ZANAFLEX) 2 mg tablet Take 2 mg by mouth every 8 hours as needed (muscle strain). - Acetaminophen 500 mg cap Take 1 capsule by mouth daily at bedtime. - carvedilol (COREG) 3.125 mg tablet Take 1 tablet by mouth two times a day with meals. - furosemide (LASIX) 20 mg tablet Take 1 tablet by mouth two times a day. - Ascorbic Acid 500 mg chew Take 500 mg by mouth once daily. - cholecalciferol, vitamin D3, (VITAMIN D3 ORAL) Take 1 tablet by mouth once daily. - apixaban (ELIQUIS) 2.5 mg tab tab(s) Take 1 tablet by mouth twice daily. Problem List As Of Date 06/10/2024 Noted Resolved Spigelian Hernia [K43.9] 07/27/2009 Inguinal Hernia Bilateral 07/27/2009 Rectal bleeding [K62.5] 10/19/2010 09/15/2017 Internal hemorrhoids [K64.8] 10/25/2010 Diverticulosis of colon [K57.30] 10/25/2010 CAD (coronary artery disease) [I25.10] 08/14/2010 Pneumonia [J18.9] 10/31/2016 Presence of combination internal cardiac defibr*08/14/2010 Hypertension [I10] Hiatal hernia with GERD [K44.9, K21.9] 12/12/2016 Hyperlipidemia [E78.5] Stage 3a chronic kidney disease (HCC) [N18.31] TIA (transient ischemic attack) [G45.9] 08/14/2017 Atrial flutter (HCC) [I48.92] Refusal of statin medication by patient [Z53.20]09/26/2019 Hypertensive kidney disease with stage 3a chron*07/13/2021 Stage 3b chronic kidney disease (HCC) [N18.32] 04/11/2022 Chronic kidney disease, stage 4 (severe) (HCC) *11/13/2023 Encounter Status:Closed by GLADYS ONTIVEROS on 06/10/24 Normal [facility] Comprehensive metabolic 2000 panelon 06-10-2024 Albumin [Mass/Vol] 3.9 g/dL 3.9 - 4.9 g/dL [facility] ALP [Catalytic activity/Vol] 92 U/L 38 - 113 U/L [facility] ALT [Catalytic activity/Vol] 20 U/L 10 - 54 U/L [facility] Anion gap [Moles/Vol] 12 mmol/L 8 - 15 mmol/L [facility] AST [Catalytic activity/Vol] 22 U/L 14 - 40 U/L [facility] Bilirubin [Mass/Vol] 0.7 mg/dL 0.2 - 1 .3 mg/dL [facility] Calcium [Mass/Vol] 8.8 mg/dL 8.5 - 10. 2 mg/dL [facility] Chloride [Moles/Vol] 101 mmol/L 98 - 10 7 mmol/L [facility] CO2 [Moles/Vol] 26 mmol/L 22 - 30 mmol/L [facility] Creatinine [Mass/Vol] 1.85 mg/dL High 0.73 - 1.22 mg/dL [facility] GFR/1.73 sq M.predicted among non-blacks MDRD (S/P/Bld) [Vol rate/Area] 35 mL/min/{1.73_m2} Low - PINF [facility] Comment on above: Estimated Glomerular Filtration Rate (eGFR) is calculated using the 2020 CKD-EPI creatinine equation. This equation utilizes serum creatinine, sex, and age as parameters. The creatinine assay has traceable calibration to isotope dilution-mass spectrometry. Refer to KDIGO guidelines for clinical interpretation. In patients with unstable renal function, e.g. those with acute kidney injury, the eGFR may not accurately reflect actual GFR. Glucose [Mass/Vol] 112 mg/dL High 74 - 99 mg/dL [facility] Comment on above: The [place] Diabete s Association (ADA) provides guidance for cutoff values for fasting glucose and random glucose. The ADA defines fasting as no caloric intake for at least 8 hours. Fasting plasma glucose results between 100 to 125 mg/dL indicate increased risk for diabetes (prediabetes). Fasting plasma glucose results greater than or equal to 126 mg/dL meet the criteria for diagnosis of diabetes. In the absence of unequivocal hyperglycemia, results should be confirmed by repeat testing. In a patient with classic symptoms of hyperglycemia or hyperglycemic crisis, random plasma glucose results greater than or equal to 200 mg/dL meet the criteria for diagnosis of diabetes. Reference: Standards of Medical Care in Diabetes 2016, [place] [employer] Association. Diabetes Care. 2016.39(Suppl 1). Potassium [Moles/Vol] 4.6 mmol/L 3.7 - 5.1 mmol/L [facility] Protein [Mass/Vol] 7.8 g/dL 6.3 - 8.0 g/dL [facility] Sodium [Moles/Vol] 139 mmol/L 136 - 144 mmol/L [facility] Urea nitrogen [Mass/Vol] 40 mg/dL High 9 - 24 mg/d L [facility] Albumin [Mass/Vol] 3.9 g/dL Normal 3.9-4.9 [facility] Comment on above: Order Comment: Speci men Type: BLOOD SPECIMENOrdering Facility: [facility] Address: [address] [place] [address] Performed By: #### 3 3762-6, ####[facility] LABCLIA [id number] [place] [address] [place] ALP [Catalytic activity/Vol] 92 U/L Normal 38-113 [facility] Comment on above: Order Comment: Speci men Type: BLOOD SPECIMENOrdering Facility: [facility] Address: [address] [place] [address] Performed By: #### 3 3762-6, ####[facility] LABCLIA [id number] [place] [address] [place] ALT [Catalytic activity/Vol] 20 U/L Normal 10-54 [facility] Comment on above: Order Comment: Speci men Type: BLOOD SPECIMENOrdering Facility: [facility] Address: [address] [place] [address] Performed By: #### 3 3762-6, ####[facility] LABCLIA [id number] [place] [address] [place] Anion gap [Moles/Vol] 12 mmol/L Normal 8-15 [facility] Comment on above: Order Comment: Speci men Type: BLOOD SPECIMENOrdering Facility: [facility] Address: [address] [place] [address] Performed By: #### 3 3762-6, ####[facility] LABCLIA [id number] [place] [address] [place] AST [Catalytic activity/Vol] 22 U/L Normal 14-40 [facility] Comment on above: Order Comment: Speci men Type: BLOOD SPECIMENOrdering Facility: [facility] Address: [address] [place] [address] Performed By: #### 3 3762-6, 20378-8 ####[facility] LABCLIA [id number] [place] [address] [place] Bilirubin [Mass/Vol] 0.7 mg/dL Normal 0.2-1.3 [facility] Comment on above: Order Comment: Speci men Type: BLOOD SPECIMENOrdering Facility: [facility] Address: [address] [place] [address] Performed By: #### 3 3762-6, ####[facility] LABCLIA [id number] [place] [address] [place] Calcium [Mass/Vol] 8.8 mg/dL Normal 8.5-10.2 [facility] Comment on above: Order Comment: Speci men Type: BLOOD SPECIMENOrdering Facility: [facility] Address: [address] [place] [address] Performed By: #### 3 376-6, ####[facility] LABCLIA [id number] [place] [address] [place] Chloride [Moles/Vol] 101 mmol/L Normal 98-107 [facility] Comment on above: Order Comment: Speci men Type: BLOOD SPECIMENOrdering Facility: [facility] Address: [address] [place] [address] Performed By: #### 3 3762-6, ####[facility] LABCLIA [id number] [place] [id number] [place] CO2 [Moles/Vol] 26 mmol/L Normal 22-30 [facility] Comment on above: Order Comment: Speci men Type: BLOOD SPECIMENOrdering Facility: [facility] Address: [address] [place] [address] Performed By: #### 3 3762-6, 17595-2 ####[facility] LABCLIA [id number] [place] [address] [place] Creatinine [Mass/Vol] 1.85 mg/dL High 0.73-1.22 [facility] Comment on above: Order Comment: Bess quintero Type: BLOOD SPECIMENOrdering Facility: [facility] Address: [address] [place] [address] Performed By: #### 3 3762-6, ####[facility] LABIA [id number] [place] [address] [place] Creatinine and Glomerular filtration rate.predicted panel (S/P/Bld) 35 mL/min/1.73m??? Low >=60 [facility] Comment on above: Order Comment: Bess quintero Type: BLOOD SPECIMENOrdering Facility: [facility] Address: [address] [place] [address] Result Comment: Maddi mated Glomerular Filtration Rate (eGFR) is calculated using the 2020 CKD-EPI creatinine equation. This equation utilizes serum creatinine, sex, and age as parameters. The creatinine assay has traceable calibration to isotope dilution-mass spectrometry. Refer to KDIGO guidelines for clinical interpretation. In patients with unstable renal function, e.g. those with acute kidney injury, the eGFR may not accurately reflect actual GFR. Performed By: #### 3 3762-6, ####[facility] LABIA [id number] [place] [address] [place] Glucose [Mass/Vol] 112 mg/dL High 74-99 [facility] Comment on above: Order Comment: Bess men Type: BLOOD SPECIMENOrdering Facility: [facility] Address: [address] [place] [address] Result Comment: The [place] Diabetes Association (ADA) provides guidance for cutoff values for fasting glucose and random glucose. The ADA defines fasting as no caloric intake for at least 8 hours. Fasting plasma glucose results between 100 to 125 mg/dL indicate increased risk for diabetes (prediabetes). Fasting plasma glucose results greater than or equal to 126 mg/dL meet the criteria for diagnosis of diabetes. In the absence of unequivocal hyperglycemia, results should be confirmed by repeat testing. In a patient with classic symptoms of hyperglycemia or hyperglycemic crisis, random plasma glucose results greater than or equal to 200 mg/dL meet the criteria for diagnosis of diabetes. Reference: Standards of Medical Care in Diabetes 2016, [place] [employer]. Diabetes Care. 2016.39(Suppl 1). Performed By: #### 3 3762-6, ####[facility] LABCLIA [id number] [place] [address] [place] Potassium [Moles/Vol] 4.6 mmol/L Normal 3.7-5.1 [facility] Comment on above: Order Comment: Speci men Type: BLOOD SPECIMENOrdering Facility: [facility] Address: [address] [place] [address] Performed By: #### 3 3762-6, ####[facility] LABCLIA [id number] [place] [address] [place] Protein [Mass/Vol] 7.8 g/dL Normal 6.3-8.0 [facility] Comment on above: Order Comment: Speci men Type: BLOOD SPECIMENOrdering Facility: [facility] Address: [address] [place] [address] Performed By: #### 3 3762-6, ####[facility] LABCLIA [id number] [place] [address] [place] Sodium [Moles/Vol] 139 mmol/L Normal 136-144 [facility] Comment on above: Order Comment: Speci men Type: BLOOD SPECIMENOrdering Facility: [facility] Address: [address] [place] [address] Performed By: #### 3 3762-6, ####[facility] LABCLIA [id number] [address] [address] [place] Urea nitrogen [Mass/Vol] 40 mg/dL High 9-24 [facility] Comment on above: Order Comment: Speci men Type: BLOOD SPECIMENOrdering Facility: [facility] Address: [address] [place] [address] Performed By: #### 3 3762-6, 81545-6 ####[facility] LABCLIA [id number] [place] [address] [place] NT PRO BNPon 06-10-2024 Natriuretic peptide.B prohormone N-Terminal [Mass/Vol] 4400 pg/mL High NINF - 450 pg/mL [facility] NT-proBNP SerPl-mCncon 06-10 Natriuretic peptide.B prohormone N-Terminal [Mass/Vol] 4400 pg/mL High <450 [facility] Comment on above: Order Comment: Bess quintero Type: BLOOD SPECIMENOrdering Facility: [facility] Address: [address] [place] [address] Performed By: #### 3 3762-6, 69358-7 ####[facility] LABCLIA [id number] [place] [address] [place] No Panel Informationon 06-10 Interpretation and review of laboratory results Abnormal [facility] XR HIP 3V PELV+ AP/LAT LTon 06-10-2024 XR HIP 3V PELV+ AP/LAT LT * * *Final Report* * * DATE OF EXAM: Jun 10 2024 11:23AM WOX [id number] - XR HIP 3V PELV+ AP/LAT LT / PROCEDURE REASON: multiple diagnoses * * * * Physician Interpretation * * * * Examination: XR HIP 3V PELV+ AP/LAT LT History: Fall in home, subsequent encounter Fall in home, subsequent encounter Acute hip pain, left Technique: XR HIP 3V PELV+ AP/LAT LT Comparison: None RESULT: Normal mineralization and alignment. Mild degenerative change and joint space narrowing with osteophytosis. No fracture or focal bony abnormality. IMPRESSION: DEGENERATIVE CHANGE. NO ACUTE FRACTURE Test Architect: [email or web address] Transcribe Date/Time: Jun 10 2024 11:27A Dictated by : NAYELY PERRY MD This examination was interpreted and the report reviewed and electronically signed by: NAYELY PERRY MD on Jun 10 2024 11:35AM EST [id number] Normal [facility] XR Pelvis and Hip - left AP and Lateral frogon 06-10-2024 IMPRESSION: DEGENERATIVE CHANGE. NO ACUTE FRACTURE Test Architect: [facility] Transcribe Date/Time: Jun 10 2024 11:27A Dictated by : NAYELY PERRY MD This examination was interpreted and the report reviewed and electronically signed by: NAYELY PERRY MD on Jun 10 2024 11:35AM EST DIVISION OF RADIOLOGY * * *Final Report* * * DATE OF EXAM: Jun 10 2024 11:23AM WOX [id number] - XR HIP 3V PELV+ AP/LAT LT / PROCEDURE REASON: multiple diagnoses * * * * Physician Interpretation * * * * Examination: XR HIP 3V PELV+ AP/LAT LT History: Fall in home, subsequent encounter Fall in home, subsequent encounter Acute hip pain, left Technique: XR HIP 3V PELV+ AP/LAT LT Comparison: None RESULT: Normal mineralization and alignment. Mild degenerative change and joint space narrowing with osteophytosis. No fracture or focal bony abnormality. DIVISION OF RADIOLOGY Provider, [facility] [place] - 06/10/2024 * * *Final Report* * * DATE OF EXAM: Jun 10 2024 11:23AM WOX [id number] - XR HIP 3V PELV+ AP/LAT LT / PROCEDURE REASON: multiple diagnoses * * * * Physician Interpretation * * * * Examination: XR HIP 3V PELV+ AP/LAT LT History: Fall in home, subsequent encounter Fall in home, subsequent encounter Acute hip pain, left Technique: XR HIP 3V PELV+ AP/LAT LT Comparison: None RESULT: Normal mineralization and alignment. Mild degenerative change and joint space narrowing with osteophytosis. No fracture or focal bony abnormality. IMPRESSION IMPRESSION: DEGENERATIVE CHANGE. NO ACUTE FRACTURE Test Architect: PSCB Transcribe Date/Time: Jun 10 2024 11:27A Dictated by : NAYELY PERRY MD This examination was interpreted and the report reviewed and electronically signed by: NAYEYL PERRY MD on Jun 10 2024 11:35AM EST [facility] Radiology Study observation (narrative) [facility] XR Pelvis and Hip - left AP and Lateral frogOrdered By: [facility] Provider on 06-10-2024 [facility] Mary Kate 05-16-2024 KATHY Telephone (FAMYakovWS) GABBY KEARNEY ([id number]) 1935 M Date Time Provider Department 05/16/24 LIBERTAD JULIO During your visit today, we recorded the following information about you: Donna Alvarez LPN 05/16/2024 11:27 AM Signed ----- Message from Libertad Julio MD sent at 05/16/2024 10:31 AM EDT ----- Stable CKD. Recommend low sodium diet <2,000 mg per day, avoidance of NSAIDs, and increased water intake. Other labs normal. No change in regimen. Donna Alvarez LPN 05/16/2024 11:28 AM Signed Left a message for pt to call the office and ask to speak to a nurse. MALISSA Lim Krystle, RN 05/17/2024 4:47 PM Signed Patient calls and notified of results and providers instructions. Patient verbalizes understanding. Torrie Manriquez RN Allergies As of Date: 05/16/2024 (No Known Allergies) Date Reviewed: 05/15/2024 Reviewed by: Gladys Ontiveros LPN - Fully Assessed Reason for Visit: Results [95] Prescriptions as of 05/17/2024 - carvedilol (COREG) 6.25 mg tablet Take 1 tablet by mouth two times a day with meals. - Ascorbic Acid 500 mg chew Take 500 mg by mouth once daily. - cholecalciferol, vitamin D3, (VITAMIN D3 ORAL) Take 1 tablet by mouth once daily. - apixaban (ELIQUIS) 2.5 mg tab tab(s) Take 1 tablet by mouth twice daily. 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 Inguinal Hernia Bilateral 07/27/2009 Rectal bleeding [K62.5] 10/19/2010 09/15/2017 Internal hemorrhoids [K64.8] 10/25/2010 Diverticulosis of colon [K57.30] 10/25/2010 CAD (coronary artery disease) [I25.10] 08/14/2010 Pneumonia [J18.9] 10/31/2016 Presence of combination internal cardiac defibr*08/14/2010 Hypertension [I10] Hiatal hernia with GERD [K44.9, K21.9] 12/12/2016 Hyperlipidemia [E78.5] Stage 3a chronic kidney disease (HCC) [N18.31] TIA (transient ischemic attack) [G45.9] 08/14/2017 Atrial flutter (HCC) [I48.92] Refusal of statin medication by patient [Z53.20]09/26/2019 Hypertensive kidney disease with stage 3a chron*07/13/2021 Stage 3b chronic kidney disease (HCC) [N18.32] 04/11/2022 Chronic kidney disease, stage 4 (severe) (HCC) *11/13/2023 Encounter Status:Closed by TORRIE MANRIQUEZ on 05/17/24 Normal [facility] CBC W Auto Differential pane l (Bld)on 05-15-2024 Basophils (Bld) [#/Vol] 0.08 10*3/uL Normal <0.11 [facility] Comment on above: Order Comment: Speci men Type: BLOOD SPECIMENOrdering Facility: [facility] Address: [address] [place] [address] Performed By: #### 5 7021-8 ####[facility] LABCLIA [id number] [facility] [place] [address] [place] Basophils/100 WBC (Bld) 1.2 % Normal C [facility] Comment on above: Order Comment: Speci men Type: BLOOD SPECIMENOrdering Facility: [facility] Address: [address] [place] [address] Performed By: #### 5 7021-8 ####[facility] LABCLIA [id number] [place] [address] [place] Differential cell count method Nom (Bld) Auto Normal [facility] Comment on above: Order Comment: Speci men Type: BLOOD SPECIMENOrdering Facility: [facility] Address: [address] [place] [address] Performed By: #### 5 7021-8 ####[facility] LABCLIA [id number] [place] [address] [place] Eosinophils (Bld) [#/Vol] 0.12 10*3/uL Normal <0.46 [facility] Comment on above: Order Comment: Speci men Type: BLOOD SPECIMENOrdering Facility: [facility] Address: [address] [place] [address] Performed By: #### 5 7021-8 ####[facility] LABCLIA [id number] [place] [address] [place] Eosinophils/100 WBC (Bld) 1.7 % Normal [facility] Comment on above: Order Comment: Speci men Type: BLOOD SPECIMENOrdering Facility: [facility] Address: [address] [place] [address] Performed By: #### 5 7021-8 ####[facility] LABIA [id number] [place] [address] [place] Erythrocyte distribution width (RBC) [Ratio] 13.4 % Normal 11.5-15.0 [facility] Comment on above: Order Comment: Speci men Type: BLOOD SPECIMENOrdering Facility: [facility] Address: [address] [place] [address] Performed By: #### 5 7021-8 ####[facility] LABCLIA [id number] [place] [address] [place] Hematocrit (Bld) [Volume fraction] 46.3 % Normal 39.0-51.0 [facility] Comment on above: Order Comment: Speci men Type: BLOOD SPECIMENOrdering Facility: [facility] Address: [address] [place] [address] Performed By: #### 5 7021-8 ####[facility] LABIA [id number] [place] [address] [place] Hemoglobin (Bld) [Mass/Vol] 14.9 g/dL Normal 13.0-17.0 [facility] Comment on above: Order Comment: Speci men Type: BLOOD SPECIMENOrdering Facility: [facility] Address: [address] [place] [address] Performed By: #### 5 7021-8 ####[facility] LABIA [id number] [place] [address] [place] Immature granulocytes (Bld) [#/Vol] 10*3/uL Normal <0.10 [facility] Comment on above: Order Comment: Speci men Type: BLOOD SPECIMENOrdering Facility: [facility] Address: [address] [place] [address] Performed By: #### 5 7021-8 ####[facility] LABIA [id number] [place] [address] [place] Immature granulocytes/100 WBC (Bld) 0.3 % Normal [facility] Comment on above: Order Comment: Speci men Type: BLOOD SPECIMENOrdering Facility: [facility] Address: [address] [place] [address] Performed By: #### 5 7021-8 ####[facility] LABIA [id number] [place] [address] [place] Lymphocytes (Bld) [#/Vol] 1.93 10*3/uL Normal 1.00-4.00 [facility] Comment on above: Order Comment: Speci men Type: BLOOD SPECIMENOrdering Facility: [facility] Address: [address] [place] [address] Performed By: #### 5 7021-8 ####[facility] LABCLIA [id number] [place] [address] [place] Lymphocytes/100 WBC (Bld) 28.1 % Normal [facility] Comment on above: Order Comment: Speci men Type: BLOOD SPECIMENOrdering Facility: [facility] Address: [address] [place] [address] Performed By: #### 5 7021-8 ####[facility] LABCLIA [id number] [place] [address] [place] MCH (RBC) [Entitic mass] 29.7 pg Normal 26.0-34.0 [facility] Comment on above: Order Comment: Speci men Type: BLOOD SPECIMENOrdering Facility: [facility] Address: [address] [place] [address] Performed By: #### 5 7021-8 ####[facility] LABIA [id number] [place] [address] [place] MCHC (RBC) [Mass/Vol] 32.2 g/dL Normal 30.5-36.0 [facility] Comment on above: Order Comment: Speci men Type: BLOOD SPECIMENOrdering Facility: [facility] Address: [address] [place] [address] Performed By: #### 5 7021-8 ####[facility] LABIA [id number] [place] [address] [place] MCV (RBC) [Entitic vol] 92.4 fL Normal 80.0-100.0 C [facility] Comment on above: Order Comment: Speci men Type: BLOOD SPECIMENOrdering Facility: [facility] Address: [address] [place] [address] Performed By: #### 5 7021-8 ####[facility] LABCLIA [id number] [place] [address] [place] Monocytes (Bld) [#/Vol] 0.74 10*3/uL Normal <0.87 [facility] Comment on above: Order Comment: Speci men Type: BLOOD SPECIMENOrdering Facility: [facility] Address: [address] [place] [address] Performed By: #### 5 7021-8 ####[facility] LABCLIA [id number] [place] [address] [place] Monocytes/100 WBC (Bld) 10.8 % Normal [facility] Comment on above: Order Comment: Speci men Type: BLOOD SPECIMENOrdering Facility: [facility] Address: [address] [place] [address] Performed By: #### 5 7021-8 ####[facility] LABCLIA [id number] [place] [address] [place] Neutrophils (Bld) [#/Vol] 3.97 10*3/uL Normal 1.45-7.50 [facility] Comment on above: Order Comment: Speci men Type: BLOOD SPECIMENOrdering Facility: [facility] Address: [address] [place] [address] Performed By: #### 5 7021-8 ####[facility] LABCLIA [id number] [place] [address] [place] Neutrophils/100 WBC (Bld) 57.9 % Normal [facility] Comment on above: Order Comment: Speci men Type: BLOOD SPECIMENOrdering Facility: [facility] Address: [address] [place] [address] Performed By: #### 5 7021-8 ####[facility] LABCLIA [id number] [place] [address] [place] Nucleated RBC (Bld) [#/Vol] 10*3/uL Normal <0.01 [facility] Comment on above: Order Comment: Speci men Type: BLOOD SPECIMENOrdering Facility: [facility] Address: [address] [place] [address] Performed By: #### 5 7021-8 ####[facility] LABCLIA [id number] [place] [address] [place] Nucleated RBC/100 WBC (Bld) [Ratio] 0.0 /100 WBC Normal [facility] Comment on above: Order Comment: Speci men Type: BLOOD SPECIMENOrdering Facility: [facility] Address: [address] [place] [address] Performed By: #### 5 7021-8 ####[facility] LABIA [id number] [place] [address] [place] Platelet mean volume (Bld) [Entitic vol] 9.6 fL Normal 9.0-12.7 [facility] Comment on above: Order Comment: Speci men Type: BLOOD SPECIMENOrdering Facility: [facility] Address: [address] [place] [address] Performed By: #### 5 7021-8 ####[facility] LABIA [id number] [place] [address] [place] Platelets (Bld) [#/Vol] 198 10*3/uL Normal 150-400 [facility] Comment on above: Order Comment: Speci men Type: BLOOD SPECIMENOrdering Facility: [facility] Address: [address] [place] [address] Performed By: #### 5 7021-8 ####[facility] LABIA [id number] [place] [address] [place] RBC (Bld) [#/Vol] 5.01 10*6/uL Normal 4.20-6.00 [facility] Comment on above: Order Comment: Speci men Type: BLOOD SPECIMENOrdering Facility: [facility] Address: [address] [place] [address] Performed By: #### 5 7021-8 ####[facility] LABIA [id number] [place] [address] [place] WBC (Bld) [#/Vol] 6.86 10*3/uL Normal 3.70-11.00 [facility] Comment on above: Order Comment: Speci men Type: BLOOD SPECIMENOrdering Facility: [facility] Address: [address] [place] [address] Performed By: #### 5 7021-8 ####[facility] LABCLIA [id number] [place] [id number] [place] CNOVon 05-15-2024 CNOV Office Visit (FAMPWS) GABBY KEARNEY ([id number]) 1935 M Date Time Provider Department 05/15/24 8:20 AM ROMINA LOZANO During your visit today, we recorded the following information about you: Pulse Respiration Blood pressure Weight 59/minute 18/minute 98/60 79.6 kg Romina Lozano APRN.MEDICAL REFERRAL COORDINATOR 05/15/2024 9:01 AM Signed 05/14/2024 Patient presents with: F/U 6 months SUBJECTIVE: This is a 89 year old that is here today for Above Complaints. Since last office visit has been in good health without ER visits or hospitalizations CAD s/pCABG/Atrial Fib/ICD: follows with [facility] cardiology with last appointment months ago per patient. With nexy follow-up in 7 months. No medication changes at that time. ICD changed on 10/17/2023. Taking medications as prescribed. Denies bleeding symptoms, SOB, dyspnea, chest pain, palpitations or leg swelling HTN: Patient is compliant with meds Yes Monitors bp at home: No. Denies side effects: Yes. Chest pain: No. Dyspnea: No. Edema: No. Palpitations: No. Syncope: No. Headache: No. Dizziness: No. CKD: tries to eat low salt diet and avoid NSAID products PAST MEDICAL HISTORY Diagnosis Date Anemia of chronic disease Atrial flutter (HCC) CAD (coronary artery disease) 2010 CABG x3, Seeing Dr. Tineo CKD (chronic kidney disease), stage III (HCC) Hiatal hernia with GERD 12/2016 UGI 01/10/17 at [facility] Hyperlipidemia Hypertension Inguinal hernia, bilateral Ischemic cardiomyopathy 06/2021 Pacemaker Perforated bowel (HCC) 06/2021 Pneumonia Presence of combination internal cardiac defibrillator (ICD) and pacemaker 2010 Refusal of statin medication by patient TIA (transient ischemic attack) 2017 ALLERGIES Patient has no known allergies. MEDICATIONS Current Outpatient Medications Medication Sig carvedilol (COREG) 6.25 mg tablet Take 1 tablet by mouth two times a day with meals. Ascorbic Acid 500 mg chew Take 500 mg by mouth once daily. cholecalciferol, vitamin D3, (VITAMIN D3 ORAL) Take 1 tablet by mouth once daily. apixaban (ELIQUIS) 2.5 mg tab tab(s) Take 1 tablet by mouth twice daily. No current facility-administere d medications for this visit. Medications and allergies reviewed by this provider. SOCIAL HISTORY Social History Tobacco Use Smoking status: Never Smokeless tobacco: Never Tobacco comments: Father smoked occasional cigar. 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 Substance Use Topics Alcohol use: No Drug use: No REVIEW OF SYSTEMS All other reviewed and negative other than HPI. OBJECTIVE: BP 98/60 Pulse (!) 59 Resp 18 Wt 79.6 kg (175 lb 7.8 oz) SpO2 94% BMI 25.18 kg/m? . Vital signs reviewed by this provider. APPEARANCE Well appearing, alert, in no acute distress, well-hydrated, well nourished. EYES conjunctiva and sclera normal. HEART RRR with normal S1 and S2, no murmurs, no gallops, no JVD appreciated LUNG clear to auscultation. No wheezes, rhonchi or rales EXTREMITIES Extremities normal, No deformities, No skin discoloration, and No edema SKIN Skin color, texture, turgor normal, no suspicious rashes or lesions to exposed skin Latest Ref Rng 12/04/2023 Protein, Total 6.3 - 8.0 g/dL 7.6 Albumin 3.9 - 4.9 g/dL 4.0 Calcium 8.5 - 10.2 mg/dL 9.5 Bilirubin, Total 0.2 - 1.3 mg/dL 0.6 Alkaline Phosphatase 38 - 113 U/L 68 AST 14 - 40 U/L 31 ALT 10 - 54 U/L 31 Glucose 74 - 99 mg/dL 106 (H) BUN 9 - 24 mg/dL 31 (H) Creatinine 0.73 - 1.22 mg/dL 1.73 (H) Sodium 136 - 144 mmol/L 140 Potassium 3.7 - 5.1 mmol/L 4.9 Chloride 97 - 105 mmol/L 104 CO2 22 - 30 mmol/L 27 Anion Gap 9 - 18 mmol/L 9 eGFR >=60 mL/min/1.73m? 38 (L) Cholesterol, Total <200 mg/dL 144 Triglyceride <150 mg/dL 102 HDL Cholesterol >39 mg/dL 49 Non HDL Cholesterol <130 mg/dL 95 Fasting Time hrs 14 VLDL Cholesterol <30 mg/dL 20 TC:HDL Ratio <5.10 2.94 LDL Cholesterol <100 mg/dL 75 LDL:HDL Ratio <2.54 1.53 Depression Screening Never done Anxiety Screening Never done RSV Vaccine(1 - 1-dose 75+ series) Never done Advance Directive Discussion Never done Influenza Vaccine(1) due on 02/10/2025 Covid-19 Vaccine(1 - 2023- season) due on 05/15/2025 LDL Cholesterol due on 12/03/2024 Diabetes Screening due on 12/03/2026 DTaP,Tdap,Td Vaccine(2 - Td or Tdap) due on 03/19/2028 Shingrix Vaccine Completed Pneumococcal Vaccine: 65+ Completed ASSESSMENT/PLAN: 1. Primary hypertension - ICD9: 401.9, ICD10: I10 (primary diagnosis) - Controlled - Continue current medications - Recommend home blood pressure monitoring, to bring results to next visit - Encouraged sodium restriction, DASH or Mediterranean diet - Recommend regular aerobic exercise - Follow up in 6 months for hypertension visit 2. Stage 3b chronic kidney disease (HCC) - ICD9: 585.3, ICD10: N18.32 - eGFR: 38 Due for labs - Counseled on laurie (more content not included)... Normal [facility] Comprehensive metabolic 2000 panelon 05-15-2024 Albumin [Mass/Vol] 4.0 g/dL Normal 3.9-4.9 [facility] Comment on above: Order Comment: Speci men Type: BLOOD SPECIMENOrdering Facility: [facility] Address: [address] [place] [address] Performed By: #### 2 4323-8 ####[facility] LABCLIA [id number] [place] [address] [place] ALP [Catalytic activity/Vol] 69 U/L Normal 38-113 [facility] Comment on above: Order Comment: Speci men Type: BLOOD SPECIMENOrdering Facility: [facility] Address: [address] [place] [address] Performed By: #### 2 4323-8 ####[facility] LABCLIA [id number] [place] [address] [place] ALT [Catalytic activity/Vol] 26 U/L Normal 10-54 [facility] Comment on above: Order Comment: Speci men Type: BLOOD SPECIMENOrdering Facility: [facility] Address: [address] [place] [address] Performed By: #### 2 4323-8 ####[facility] LABCLIA [id number] [place] [address] [place] Anion gap [Moles/Vol] 9 mmol/L Normal 8-15 [facility] Comment on above: Order Comment: Speci men Type: BLOOD SPECIMENOrdering Facility: [facility] Address: [address] [place] [address] Performed By: #### 2 4323-8 ####[facility] LABCLIA [id number] [place] [address] [place] AST [Catalytic activity/Vol] 28 U/L Normal 14-40 [facility] Comment on above: Order Comment: Speci men Type: BLOOD SPECIMENOrdering Facility: [facility] Address: [address] [place], [place] [address] Performed By: #### 2 4323-8 ####[facility] LABCLIA [id number] [place] [id number] [place] Bilirubin [Mass/Vol] 0.7 mg/dL Normal 0.2-1.3 [facility] Comment on above: Order Comment: Speci men Type: BLOOD SPECIMENOrdering Facility: [facility] Address: [address] [place] [address] Performed By: #### 2 4323-8 ####[facility] LABCLIA [id number] [address] [address] [place] Calcium [Mass/Vol] 9.2 mg/dL Normal 8.5-10.2 [facility] Comment on above: Order Comment: Speci men Type: BLOOD SPECIMENOrdering Facility: [facility] Address: [address] [place] [address] Performed By: #### 2 4323-8 ####[facility] LABCLIA [id number] [place] [address] [place] Chloride [Moles/Vol] 105 mmol/L Normal 98-107 [facility] Comment on above: Order Comment: Speci men Type: BLOOD SPECIMENOrdering Facility: [facility] Address: [address] [place] [address] Performed By: #### 2 4323-8 ####[facility] LABCLIA [id number] [place] [address] [place] CO2 [Moles/Vol] 25 mmol/L Normal 22-30 [facility] Comment on above: Order Comment: Speci men Type: BLOOD SPECIMENOrdering Facility: [facility] Address: [address] [place] [address] Performed By: #### 2 4323-8 ####[facility] LABCLIA [id number] [place] [address] [place] Creatinine [Mass/Vol] 1.81 mg/dL High 0.73-1.22 [facility] Comment on above: Order Comment: Speci men Type: BLOOD SPECIMENOrdering Facility: [facility] Address: [address] [place] [address] Performed By: #### 2 4323-8 ####[facility] LABCLIA [id number] [place] [address] [place] Creatinine and Glomerular filtration rate.predicted panel (S/P/Bld) 36 mL/min/1.73m??? Low >=60 [facility] Comment on above: Order Comment: Speci men Type: BLOOD SPECIMENOrdering Facility: [facility] Address: [address] [place] [address] Result Comment: Maddi mated Glomerular Filtration Rate (eGFR) is calculated using the 2020 CKD-EPI creatinine equation. This equation utilizes serum creatinine, sex, and age as parameters. The creatinine assay has traceable calibration to isotope dilution-mass spectrometry. Refer to KDIGO guidelines for clinical interpretation. In patients with unstable renal function, e.g. those with acute kidney injury, the eGFR may not accurately reflect actual GFR. Performed By: #### 2 4323-8 ####[facility] LABIA [id number] [place] [address] [place] Glucose [Mass/Vol] 90 mg/dL Normal 74-99 [facility] Comment on above: Order Comment: Bess quintero Type: BLOOD SPECIMENOrdering Facility: [facility] Address: [address] [place] [address] Result Comment: The [place] Diabetes Association (ADA) provides guidance for cutoff values for fasting glucose and random glucose. The ADA defines fasting as no caloric intake for at least 8 hours. Fasting plasma glucose results between 100 to 125 mg/dL indicate increased risk for diabetes (prediabetes). Fasting plasma glucose results greater than or equal to 126 mg/dL meet the criteria for diagnosis of diabetes. In the absence of unequivocal hyperglycemia, results should be confirmed by repeat testing. In a patient with classic symptoms of hyperglycemia or hyperglycemic crisis, random plasma glucose results greater than or equal to 200 mg/dL meet the criteria for diagnosis of diabetes. Reference: Standards of Medical Care in Diabetes 2016, [place] [employer]. Diabetes Care. 2016.39(Suppl 1). Performed By: #### 2 4323-8 ####[facility] LABCLIA [id number] [place] [address] [place] Potassium [Moles/Vol] 4.7 mmol/L Normal 3.7-5.1 [facility] Comment on above: Order Comment: Speci men Type: BLOOD SPECIMENOrdering Facility: [facility] Address: [address] [place] [address] Performed By: #### 2 4323-8 ####[facility] LABCLIA [id number] [place] [address] [place] Protein [Mass/Vol] 7.4 g/dL Normal 6.3-8.0 [facility] Comment on above: Order Comment: Speci men Type: BLOOD SPECIMENOrdering Facility: [facility] Address: [address] [place] [address] Performed By: #### 2 4323-8 ####[facility] LABCLIA [id number] [place] [address] [place] Sodium [Moles/Vol] 139 mmol/L Normal 136-144 [facility] Comment on above: Order Comment: Speci men Type: BLOOD SPECIMENOrdering Facility: [facility] Address: [address] [place] [address] Performed By: #### 2 4323-8 ####[facility] LABCLIA [id number] [place] [address] [place] Urea nitrogen [Mass/Vol] 34 mg/dL High 9-24 [facility] Comment on above: Order Comment: Speci men Type: BLOOD SPECIMENOrdering Facility: [facility] Address: [address] [place] [address] Performed By: #### 2 4323-8 ####[facility] LABCLIA [id number] [place] [address] [place] ECG COMPLETEon 05-15-2024 ECG COMPLETE Ventricular Rate : 73 BPM Atrial Rate : 394 BPM QRS Duration : 174 ms Q-T Interval : 474 ms QTC Calculation(Bazett) : 522 ms Calculated R [place] : -62 degrees Calculated T [place] : 118 degrees VENTRICULAR-PACED RHYTHM WITH PREMATURE VENTRICULAR COMPLEXES ABNORMAL ECG Confirmed by SHERLEY LINDO DO ([id number]) on 05/16/2024 12:52:24 PM NAME : GABBY KEARNEY PID : [id number] : 1935 Gender : Male Race : ORD : [id number] Procedure Date : May 15 2024 08:59:20 Edit Date : May 16 2024 12:52:28 Diagnosis: VENTRICULAR-PACED RHYTHM WITH PREMATURE VENTRICULAR COMPLEXES ABNORMAL ECG Confirmed by SHERLEY LINDO DO ([id number]) on 05/16/2024 12:52:24 PM Test Reason : I25.10 Coronary artery disease involving [place] heart without angina pectoris, Location : 185 : [facility] Overread By : SHERLEY LINDO DO Edited By : SHERLEY LINDO DO Referred By : PODLOGAR, Acquired by : Brittney HERNANDEZ [facility] Basophil percentageOrdered B y: Gladys Rodriguez on 11-06-2023 Chloride [Moles/Vol] 111 mmol/L 98-107 [facility] Glucose [Mass/Vol] 103 mg/dL 74-106 [facility] Comment on above: Fasting Glucose resu lt from 100 to 125 mg/dL suggests IMPAIRED HOMEOSTASIS per A.D.A. criteria. Potassium [Moles/Vol] 4.0 mmol/L 3.5-5.1 [facility] Sodium [Moles/Vol] 142 mmol/L 136-145 [facility] Laboratory - Chemistry and C hemistry - challengeOrdered By: Gladys Rodriguez on 11-06-2023 CO2 [Moles/Vol] 27.0 mmol/L 21.0-32.0 [facility] Urea nitrogen/Creatinine [Mass ratio] 21.0 mg/mg 10-20 [facility] No Panel InformationOrdered By: Gladys Rodriguez on 11-06-2023 Estimated GFR (MDRD) Amer 41 mL/min >60 [facility] Comment on above: GFR Calc Estimated GFR (MDRD) Non-Af Amer 34 mL/min >60 [facility] Comment on above: Non- GFR Calc Serum or plasma calcium florian urement (mass/volume)Ordered By: Gladys Rodriguez on 11-06-2023 Calcium [Mass/Vol] 8.9 mg/dL 8.5-10.1 [facility] Serum or plasma creatinine m easurement (mass/volume)Ordered By: Gladys Rodriguez on 11-06-2023 Creatinine [Mass/Vol] 2.00 mg/dL 0.70-1.30 [facility] Comment on above: The validity of the calculated GFR & GFRAA in patients over 70 years has not been determined. Clinical correlation is essential. Serum or plasma urea nitroge n measurement (mass/volume)Ordered By: Gladys Rodriguez on 11-06-2023 Urea nitrogen [Mass/Vol] 42 mg/dL 7-18 [facility] Thin prep Papanicolaou smear with manual screeningOrdered By: Gladys Rodriguez on 11-06-2023 Thin prep Papanicolaou smear with manual screening 4 5-15 [facility] Stool gastrointestinal hemog lobin detection by immunologic methodOrdered By: Gladys Rodriguez on 09-27-2023 Lower GI hemoglobin IA Ql (Stl) [facility] Lower GI hemoglobin IA Ql (Stl) [facility] Basophil percentageOrdered B y: Ten Tineo on 09-25-2023 Basophil percentage 0-5 SEEN /hpf 0-5 [facility] Chloride [Moles/Vol] 112 mmol/L 98-107 [facility] Glucose [Mass/Vol] 109 mg/dL 74-106 [facility] Comment on above: Fasting Glucose resu lt from 100 to 125 mg/dL suggests IMPAIRED HOMEOSTASIS per A.D.A. criteria. Hemoglobin (Bld) [Mass/Vol] 14.2 g/dL 13.0-16.5 [facility] Potassium [Moles/Vol] 4.6 mmol/L 3.5-5.1 [facility] Sodium [Moles/Vol] 142 mmol/L 136-145 [facility] WBC (Bld) [#/Vol] 8.0 10*3/uL 4.4-11.0 [facility] Bilirubin Test strip Ql (U)O rdered By: Ten Tineo on 09-25-2023 Bilirubin Ql (U) Negative Negative [facility] Determination of erythrocyte mean corpuscular volume (MCV)Ordered By: Ten Tineo on 09-25-2023 MCV (RBC) [Entitic vol] 91.7 fL 80-94 [facility] Erythrocyte distribution wid th ratioOrdered By: Ten Noman on 09-25-2023 Erythrocyte distribution width (RBC) [Ratio] 13.2 % 11.6-14.6 [facility] Erythrocyte distribution wid th standard deviationOrdered By: Ten Tineo on 09-25-2023 Erythrocyte distribution width (RBC) [Entitic vol] 44.3 fL 35.1-43.9 [facility] Hematocrit Auto (Bld) [Volum e fraction]Ordered By: Ten Tineo on 09-25-2023 Hematocrit (Bld) [Volume fraction] 44.2 % 40-54 [facility] Ketones Test strip Ql (U)Ord ered By: Ten Tineo on 09-25-2023 Ketones Ql (U) Negative Negative [facility] Laboratory - Chemistry and C hemistry - challengeOrdered By: Ten Tineo on 09-25-2023 CO2 [Moles/Vol] 27.0 mmol/L 21.0-32.0 [facility] Urea nitrogen/Creatinine [Mass ratio] 20.7 mg/mg 10-20 [facility] Laboratory - CoagulationOrde red By: Ten Tineo on 09-25-2023 INR Coag (Bld) [Relative time] 1.5 {INR} [facility] PT Coag (PPP) [Time] 17.8 s 11.7-14.9 [facility] Laboratory - Hematology and Cell countsOrdered By: Ten Tineo on 09-25-2023 MCH (RBC) [Entitic mass] 29.5 pg 27.0-32.0 [facility] MCHC (RBC) [Mass/Vol] 32.1 g/dL 32-36 [facility] Platelet mean volume (Bld) [Entitic vol] 9.0 fL 6.2-12.0 [facility] Platelets (Bld) [#/Vol] 172 10*3/uL 150-450 [facility] Mucus LM Ql (Urine sed)Order ed By: Ten Tineo on 09-25-2023 Mucus Ql (Urine sed) 0 SEEN /hpf [facility] Nitrite Test strip Ql (U)Ord ered By: Ten Tineo on 09-25-2023 Nitrite Ql (U) Negative Negative [facility] No Panel InformationOrdered By: Ten Tineo on 09-25-2023 Estimated GFR (MDRD) Amer 50 mL/min >60 [facility] Comment on above: GFR Calc Estimated GFR (MDRD) Non-Af Amer 41 mL/min >60 [facility] Comment on above: Non- GFR Calc Urine RBC 0-5 SEEN /hpf 0-5 [facility] Protein Test strip Ql (U)Ord ered By: Ten Tineo on 09-25-2023 Protein Ql (U) 15 mg/dl Negative [facility] RBC Auto (Bld) [#/Vol]Ordere d By: Ten Tineo on 09-25-2023 RBC (Bld) [#/Vol] 4.82 10*6/uL 4.6-6.2 [facility] Serum or plasma calcium florian urement (mass/volume)Ordered By: Ten Tineo on 09-25-2023 Calcium [Mass/Vol] 8.8 mg/dL 8.5-10.1 [facility] Serum or plasma creatinine m easurement (mass/volume)Ordered By: Ten Tineo on 09-25-2023 Creatinine [Mass/Vol] 1.69 mg/dL 0.70-1.30 [facility] Comment on above: The validity of the calculated GFR & GFRAA in patients over 70 years has not been determined. Clinical correlation is essential. Serum or plasma urea nitroge n measurement (mass/volume)Ordered By: Ten Tineo on 09-25-2023 Urea nitrogen [Mass/Vol] 35 mg/dL 7-18 [facility] Squamous epithelial cells de tection in urine sediment by light microscopyOrdered By: Ten Tineo on 09-25-2023 Epithelial cells.squamous LM Ql (Urine sed) 0-5 SEEN /hpf 0-5 [facility] Thin prep Papanicolaou smear with manual screeningOrdered By: Ten Tineo on 09-25-2023 Thin prep Papanicolaou smear with manual screening 3 5-15 [facility] Urine blood detectionOrdered By: Ten Tinoe on 09-25-2023 RBC Ql (U) 10 /ul Negative [facility] Urine clarityOrdered By: Kathe Tineo on 09-25-2023 Clarity (U) Clear Clear [facility] Urine color determinationOrd ered By: Ten Tineo on 09-25-2023 Color (U) Yellow Yellow [facility] Urine glucose detectionOrder ed By: Ten Tineo on 09-25-2023 Glucose Ql (U) Normal mg/dl Normal [facility] Urine leukocyte esterase det ection by dipstickOrdered By: Ten Tineo on 09-25-2023 Leukocyte esterase Test strip Ql (U) Negative Negative [facility] Urine pHOrdered By: Rj on 09-25-2023 pH (U) 6.0 [pH] 5.0 - 8.0 [facility] Urine sediment bacteria coun t by microscopy (number/high power field)Ordered By: Ten Tineo on 09-25-2023 Bacteria LM.HPF (Urine sed) [#/Area] 0 /[HPF] None Seen [facility] Urine specific gravity measu rementOrdered By: Ten Tineo on 09-25-2023 Specific gravity (U) [Rel density] 1.015 1.002-1.030 [facility] Urine urobilinogen measureme ntOrdered By: Ten Tineo on 09-25-2023 Urobilinogen Ql (U) Normal mg/dl Normal [facility] Absolute lymphocyte countOrd ered By: Gladys Rodriguez on 08-16-2022 Lymphocytes Auto (Unsp spec) [#/Vol] 2.50 10*3/uL 0.83-4.51 [facility] Basophil percentageOrdered B y: Gladys Rodriguez on 08-16-2022 Basophils/100 WBC (Bld) 1.0 % 0-1 [facility] Bilirubin [Mass/Vol] 0.50 mg/dL 0.20-1.00 [facility] Comment on above: For patients on eltr ombopag therapy, use of Dimension [place] TBIL is not recommended. Chloride [Moles/Vol] 108 mmol/L 98-107 [facility] Eosinophils/100 WBC (Bld) 1.4 % 0-5 [facility] Glucose [Mass/Vol] 106 mg/dL 74-106 [facility] Comment on above: Fasting Glucose resu lt from 100 to 125 mg/dL suggests IMPAIRED HOMEOSTASIS per A.D.A. criteria. Neutrophils (Bld) [#/Vol] 4.6 10*3/uL 2.0-7.7 [facility] Neutrophils/100 WBC (Bld) 56.9 % 47-70 [facility] Potassium [Moles/Vol] 4.9 mmol/L 3.5-5.1 [facility] Protein [Mass/Vol] 7.9 g/dL 6.4-8.2 [facility] Sodium [Moles/Vol] 141 mmol/L 136-145 [facility] WBC (Bld) [#/Vol] 8.1 10*3/uL 4.4-11.0 [facility] Blood erythrocytes count (nu mber/volume)Ordered By: Gladys Rodriguez on 08-16-2022 RBC (Bld) [#/Vol] 4.77 10*6/uL 4.6-6.2 [facility] Blood hemoglobin measurement (mass/volume)Ordered By: Gladys Rodriguez on 08-16-2022 Hemoglobin (Bld) [Mass/Vol] 14.1 g/dL 13.0-16.5 [facility] Blood lymphocytes/100 leukoc ytesOrdered By: Gladys Rodriguez on 08-16-2022 Lymphocytes/100 WBC (Bld) 30.8 % 19-41 [facility] Blood monocytes/100 leukocyt esOrdered By: Gladys Rodriguez on 08-16-2022 Monocytes/100 WBC (Bld) 9.5 % 0-10 [facility] Blood platelet mean volumeOr dered By: Gladys Rodriguez on 08-16-2022 Platelet mean volume (Bld) [Entitic vol] 8.8 fL 6.2-12.0 [facility] Determination of erythrocyte mean corpuscular volume (MCV)Ordered By: Gladys Rodriguez on 08-16-2022 MCV (RBC) [Entitic vol] 91.8 fL 80-94 [facility] Hematocrit Auto (Bld) [Volum e fraction]Ordered By: Gladys Rodriguez on 08-16-2022 Hematocrit (Bld) [Volume fraction] 43.8 % 40-54 [facility] Laboratory - Chemistry and C hemistry - challengeOrdered By: Gladys Rodriguez on 08-16-2022 ALP [Catalytic activity/Vol] 67 U/L 45-117 [facility] ALT [Catalytic activity/Vol] 19 U/L 16-61 [facility] CO2 [Moles/Vol] 28.0 mmol/L 21.0-32.0 [facility] Globulin (S) [Mass/Vol] 4.6 g/dL 2.2-4.2 [facility] Urea nitrogen/Creatinine [Mass ratio] 22.5 mg/mg 10-20 [facility] Laboratory - Hematology and Cell countsOrdered By: Gladys Rodriguez on 08-16-2022 Erythrocyte distribution width (RBC) [Entitic vol] 43.6 fL 35.1-43.9 [facility] Erythrocyte distribution width (RBC) [Ratio] 12.8 % 11.6-14.6 [facility] Immature granulocytes/100 WBC (Bld) 0.400 % 0.0-0.9 [facility] Comment on above: IG% - Immature Granu locytes (promyelocytes, myelocytes and metamyelocytes) > 1% indicates that a LEFT SHIFT is Present. MCH (RBC) [Entitic mass] 29.6 pg 27.0-32.0 [facility] Nucleated RBC/100 WBC (Bld) [Ratio] 0 % 0-5 [facility] MCHC Auto (RBC) [Mass/Vol]Or dered By: Gladys Rodriguez on 08-16-2022 MCHC (RBC) [Mass/Vol] 32.2 g/dL 32-36 [facility] No Panel InformationOrdered By: Gladys Rodriguez on 08-16-2022 Estimated GFR (MDRD) Amer 46 mL/min >60 [facility] Comment on above: GFR Calc Estimated GFR (MDRD) Non-Af Amer 38 mL/min >60 [facility] Comment on above: Non- GFR Calc Thyroid Stimulating Hormone (TSH) 3.02 uIU/mL 0.358-3.74 [facility] Platelets bldOrdered By: Lamine aki Jennifer on 08-16-2022 Platelets (Bld) [#/Vol] 186 10*3/uL 150-450 [facility] Serum or plasma albumin florian urement (mass/volume)Ordered By: Gladys Rodriguez on 08-16-2022 Albumin [Mass/Vol] 3.3 g/dL 3.2-5.0 [facility] Serum or plasma albumin/glob ulin mass ratioOrdered By: lGadys Rodriguez on 08-16-2022 Albumin/Globulin [Mass ratio] 0.7 {ratio} 0.9-2.4 [facility] Serum or plasma calcium florian urement (mass/volume)Ordered By: Gladys Rodriguez on 08-16-2022 Calcium [Mass/Vol] 8.5 mg/dL 8.5-10.1 [facility] Serum or plasma creatinine m easurement (mass/volume)Ordered By: Gladys Rodriguez on 08-16-2022 Creatinine [Mass/Vol] 1.82 mg/dL 0.70-1.30 [facility] Comment on above: The validity of the calculated GFR & GFRAA in patients over 70 years has not been determined. Clinical correlation is essential. Serum or plasma urea nitroge n measurement (mass/volume)Ordered By: Gladys Rodriguez on 08-16-2022 Urea nitrogen [Mass/Vol] 41 mg/dL 7-18 [facility] Thin prep Papanicolaou smear with manual screeningOrdered By: Gladys Rodriguez on 08-16-2022 Thin prep Papanicolaou smear with manual screening 14 U/L 15-37 [facility] Thin prep Papanicolaou smear with manual screening 5 5-[address] [facility] [address] CHEST WO IVCONon 02-03-20 [facility] Comprehensive metabolic 2000 panelon 01-18-2022 Albumin [Mass/Vol] 3.9 g/dL 3.9 - 4.9 g/dL [facility] ALP [Catalytic activity/Vol] 59 U/L 38 - 113 U/L [facility] ALT [Catalytic activity/Vol] 9 U/L Low 10 - 54 U/L [facility] Anion gap [Moles/Vol] 9 mmol/L 9 - 18 mmol/L [facility] AST [Catalytic activity/Vol] 18 U/L 14 - 40 U/L [facility] Bilirubin [Mass/Vol] 0.4 mg/dL 0.2 - 1 .3 mg/dL [facility] Calcium [Mass/Vol] 9.1 mg/dL 8.5 - 10. 2 mg/dL [facility] Chloride [Moles/Vol] 106 mmol/L High 97 - 10 5 mmol/L [facility] CO2 [Moles/Vol] 26 mmol/L 22 - 30 mmol/L [facility] Creatinine [Mass/Vol] 1.89 mg/dL High 0.73 - 1.22 mg/dL [facility] Estimated Glomerular Filtration Rate 34 mL/min/1.73m Low >=60 mL/min/1.73m [facility] Glucose [Mass/Vol] 55 mg/dL Low 74 - 99 mg/dL [facility] Potassium [Moles/Vol] 5.1 mmol/L 3.7 - 5.1 mmol/L [facility] Protein [Mass/Vol] 7.5 g/dL 6.3 - 8.0 g/dL [facility] Sodium [Moles/Vol] 141 mmol/L 136 - 144 mmol/L [facility] Urea nitrogen [Mass/Vol] 36 mg/dL High 9 - 24 mg/d L [facility] UA DIP, URINE (POC)on 2021 BILIRUBIN UA (POCT) Negative Negative [facility] CLARITY UA (POCT) Clear [facility] COLOR UA (POCT) Yellow [facility] GLUCOSE UA (POCT) Negative Negative mg/dL [facility] HEMOGLOBIN/BLOOD UA (POCT) Trace-intact Abnormal Negative [facility] KETONE UA (POCT) Negative Negative mg/dL [facility] LEUKOCYTES UA (POCT) Negative Negative [facility] NITRITE UA (POCT) Negative Negative [facility] PH UA (POCT) 6.0 4.5 - 8.0 [facility] Protein Ql (U) Negative Negative mg/dL [facility] SPECIFIC GRAVITY UA (POCT) 1.020 1.005 - 1.030 [facility] UROBILINOGEN UA (POCT) 0.2 E.U./dL Mehnaz l E.U./dL [facility] XR CHEST 2V FRONTAL/LATon [facility] XR Chest PA and Lateralon IMPRESSION: No acute radiographic abnormality. Test Architect: PSCB Transcribe Date/Time: Jan 18 2022 10:02A Dictated by : JAXON BAUTISTA MD This examination was interpreted and the report reviewed and electronically signed by: JAXON BAUTISTA MD on Jan 18 2022 10:03AM EST [id number] SE_DIVISION OF RADIOLOGY * * *Final Report* * * DATE OF EXAM: Jan 18 2022 8:55AM WOX [id number] - XR CHEST 2V FRONTAL/LAT / PROCEDURE REASON: Spitting up blood * * * * Physician Interpretation * * * * EXAMINATION: CHEST RADIOGRAPH (2 VIEW FRONTAL & LATERAL) CLINICAL HISTORY: Spitting up blood MQ: [id number] EXAM DATE/TIME: 01/18/2022 8:55 AM COMPARISON: Chest x-ray dated October 31, [address] chest dated March 22, 2017 RESULT: Lines, tubes, and devices: Left transvenous pacemaker with leads projecting over the right atrium and right ventricle. Lungs and pleura: Few scattered calcified granuloma again identified. No consolidation. No lung mass. No pleural effusion. No pneumothorax. Cardiomediastinal silhouette: Stable cardiomediastinal silhouette with normal heart size, tortuous aorta and postsurgical changes from median sternotomy. Bones and soft tissues: Stable T12 mild compression fracture. Degenerative changes in the spine. [id number]_U _DIVISION OF RADIOLOGY Provider, [facility] [place] - 01/18/2022 * * *Final Report* * * DATE OF EXAM: Jan 18 2022 8:55AM [id number] - XR CHEST 2V FRONTAL/LAT / PROCEDURE REASON: Spitting up blood * * * * Physician Interpretation * * * * EXAMINATION: CHEST RADIOGRAPH (2 VIEW FRONTAL & LATERAL) CLINICAL HISTORY: Spitting up blood MQ: [id number] EXAM DATE/TIME: 01/18/2022 8:55 AM COMPARISON: Chest x-ray dated October 31, [address] chest dated March 22, 2017 RESULT: Lines, tubes, and devices: Left transvenous pacemaker with leads projecting over the right atrium and right ventricle. Lungs and pleura: Few scattered calcified granuloma again identified. No consolidation. No lung mass. No pleural effusion. No pneumothorax. Cardiomediastinal silhouette: Stable cardiomediastinal silhouette with normal heart size, tortuous aorta and postsurgical changes from median sternotomy. Bones and soft tissues: Stable T12 mild compression fracture. Degenerative changes in the spine. IMPRESSION IMPRESSION: No acute radiographic abnormality. Test Architect: SWATHI Transcribe Date/Time: Jan 18 2022 10:02A Dictated by : JAXON BAUTISTA MD This examination was interpreted and the report reviewed and electronically signed by: JAXON BAUTISTA MD on Jan 18 2022 10:03AM EST [facility] Radiology Study observation (narrative) [facility] XR Chest PA and LateralOrder ed By: Jagdish Provider on 01-18-2022 [facility] Office Visit: Isaac 03-24-20 Documentation of current medications (procedure) Done Invalid Interpretation Code [facility] Work Phone: [phone] Fall risk assessment No Invalid Interpretation Code [facility] Work Phone: [phone] Protein mass conc Done [facility] Work Phone: [phone] Lab Report: Basic Metabolic Profile (BMP)on 02-16-2017 Anion gap 4 mmol/L Low 5-15 [facility] Work Phone: [phone] Anion gap molar conc 4 mmol/L Low 5-[address] [facility] [address] [facility] Work Phone: [phone] BUN/Creatinine Ratio 15.8 RATIO Invalid Interpretation Code 10-20 [facility] Work Phone: [phone] Calcium 8.5 mg/dL Invalid Interpretation Code 8.5-10.1 [facility] Work Phone: [phone] Chloride 105 mmol/L Invalid Interpretation Code 98-107 [facility] Work Phone: [phone] CO2 30.0 mmol/L Invalid Interpretation Code 21.0-32.0 [facility] Work Phone: [phone] CO2 ppres (BldV) 30.0 mmol/L 21.0-32.0 [facility] Work Phone: [phone] Creatinine 1.33 mg/dL High 0.70-1.30 [facility] Work Phone: [phone] eGFR (non-black) 66 mL/min/{1.73_m2} Invalid Interpretation Code >60 [facility] Work Phone: [phone] eGFR (non-black) 55 mL/min/{1.73_m2} Low >60 [facility] Work Phone: [phone] EST GFR - AA 66 mL/min >60 [facility] Work Phone: [phone] Glucose 95 mg/dL Invalid Interpretation Code 70-110 [facility] Work Phone: [phone] Glucose mass conc 95 mg/dL Invalid Interpretation Code 70-110 [facility] Work Phone: [phone] Potassium 3.9 mmol/L Invalid Interpretation Code 3.5-5.1 [facility] Work Phone: [phone] Sodium 139 mmol/L Invalid Interpretation Code 136-145 [facility] Work Phone: [phone] Urea nitrogen 21 mg/dL High 7-18 [facility] Work Phone: [phone] Lab Report: CBC W/Diff, Auto matedon 02-16-2017 Absolute Neut 2.7 X10 3/UL Invalid Interpretation Code 2.0-7.7 [facility] Work Phone: [phone] Basophils/100 leukocytes 1.2 % High 0-1 [facility] Work Phone: [phone] Basophils/100 WBC (Bld) 1.2 % High 0-1 [facility] Work Phone: [phone] Eosinophils/100 leukocytes 1.7 % Invalid Interpretation Code 0-5 [facility] Work Phone: [phone] Eosinophils/100 WBC (Bld) 1.7 % 0-5 [facility] Work Phone: [phone] Erythrocyte distribution width Ratio (RBC) 44.8 fL High 35.1-43.9 [facility] Work Phone: [phone] Erythrocyte distribution width Ratio (RBC) 14.8 % High 11.6-14.6 [facility] Work Phone: [phone] Erythrocytes (RBC) 4.45 10*6/uL Low 4.6-6.[address] [facility] Work Phone: [phone] Hematocrit (HCT) 37.8 % Low 40-54 [facility] Work Phone: [phone] Hematocrit Volume Fraction (Bld) 37.8 % Low 40-54 [facility] Work Phone: [phone] Hemoglobin (HGB) 12.2 g/dL Low 13.0-16.5 [facility] Work Phone: [phone] Immature granulocytes #/vol (Bld) 0.000 % 0.0-0.9 [facility] Work Phone: [phone] immature granulocytes, percentage of total cells, blood 0.000 % Invalid Interpretation Code 0.0-0.9 [facility] Work Phone: [phone] Immature granulocytes/100 WBC (Bld) 0.000 % Invalid Interpretation Code 0.0-0.9 [facility] Work Phone: [phone] Lymphocytes 2.45 X10 3/UL Invalid Interpretation Code 0.83-4.51 [facility] Work Phone: [phone] Lymphocytes #/vol (Bld) 2.45 X10 3/UL 0.83-4.51 [facility] Work Phone: [phone] Lymphocytes/100 leukocytes 42.3 % High 19-41 [facility] Work Phone: [phone] Lymphocytes/100 WBC (Bld) 42.3 % High 19-41 [facility] Work Phone: [phone] MCH 27.4 pg Invalid Interpretation Code 27.0-32.0 [facility] Work Phone: [phone] MCH Entitic mass (RBC) 27.4 pg 27.0-32.0 [facility] Work Phone: [phone] MCHC 32.3 G/GL Invalid Interpretation Code 32-36 [facility] Work Phone: [phone] MCHC mass conc (RBC) 32.3 G/GL 32-[address] [facility] Work Phone: [phone] MCV 84.9 fL Invalid Interpretation Code 80-94 [facility] Work Phone: MCV Entitic volume (RBC) 84.9 fL 80-94 [email or web address] Work Phone: [phone] Monocytes/100 leukocytes 8.5 % Invalid Interpretation Code 0-10 [email or web address] Work Phone: [phone] Monocytes/100 WBC (Bld) 8.5 % 0-10 [facility] Work Phone: [phone] neutrophil count, blood 2.7 X10 3/UL Invalid Interpretation Code 2.0-7.7 [facility] Work Phone: [phone] Neutrophils #/vol (Bld) 2.7 X10 3/UL 2.0-7.7 [facility] Work Phone: [phone] Neutrophils/100 leukocytes 46.3 % Low 47-70 [email or web address] Work Phone: [phone] Neutrophils/100 WBC (Bld) 46.3 % Low 47-70 [facility] Work Phone: [phone] Platelet mean volume Entitic volume (Bld) 8.4 fL 6.2-12.0 [facility] Work Phone: [phone] Platelets 296 10*3/mm3 Invalid Interpretation Code 150-450 [facility] Work Phone: [phone] Platelets #/vol (Bld) 296 10*3/mm3 150-450 [facility] Work Phone: [phone] PMV by Luis Enrique 8.4 fL Invalid Interpretation Code 6.2-12.0 [facility] Work Phone: [phone] RBC #/vol (Bld) 4.45 10*6/uL Low 4.6-6.2 [facility] Work Phone: [phone] RDW SD 44.8 fL High 35.1-43.9 [facility] Work Phone: [phone] RDW-CA 14.8 % High 11.6-14.6 [facility] Work Phone: [phone] red blood cell distribution width, size density 44.8 fL High 35.1-43.9 [facility] Work Phone: [phone] WBC #/vol (Bld) 5.8 10*3/uL 4.4-11.0 [facility] Work Phone: [phone] WBC (Leukocytes) 5.8 10*3/uL Invalid Interpretation Code 4.4-11.0 [facility] Work Phone: [phone] Lab Report: Magnesiumon 07-0 Magnesium 2.2 mg/dL Invalid Interpretation Code 1.8-2.4 [facility] Work Phone: [phone] Office Visiton 10-28-2016 Documentation of current medications (procedure) Done Invalid Interpretation Code [facility] Work Phone: [phone]) Clinical Lists Update: 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 09-21-2016 Left ventricular Ejection fraction 55 % Invalid Interpretation Code [facility] Work Phone: [phone] Office Visiton 03-25-2016 Tobacco smoking status [facility] Tobacco smoking status [facility] Invalid Interpretation Code [facility] Work Phone: [phone] Tobacco smoking status [facility] Never smoker [facility] Work Phone: [phone] Tobacco use [facility] Never smoker Invalid Interpretation Code [facility] Work Phone: [phone]) Lab Report: Lipid Profileon 08-12-2015 Cholesterol [Mass/Vol] 154 mg/dL Invalid Interpretation Code 200 [facility] Work Phone: [phone] Cholesterol in HDL [Mass/Vol] 42 mg/dL Invalid Interpretation Code [facility] Work Phone: [phone] Cholesterol in LDL [Mass/Vol] 98 mg/dL Invalid Interpretation Code 0-130 [facility] Work Phone: [phone] Lipoprotein.pre-beta [Mass/Vol] 14 mg/dL Invalid Interpretation Code 5-40 [facility] Work Phone: [phone] Triglyceride [Mass/Vol] 71 mg/dL Invalid Interpretation Code [facility] Work Phone: [phone] Lab Report: Liver Profileon 08-12-2015 Albumin [Mass/Vol] 2.9 g/dL Low 3.4-5.0 [facility] Work Phone: [phone] Alkaline phosphatase (ALP) 60 U/L Invalid Interpretation Code 50-136 [facility] Work Phone: [phone] ALP (Bld) [Catalytic activity/Vol] 60 U/L 50-136 [email or web address] Work Phone: [phone] ALT [Catalytic activity/Vol] 14 U/L Invalid Interpretation Code 12-78 [facility] Work Phone: [phone] AST [Catalytic activity/Vol] 14 U/L Low 15-37 [facility] Work Phone: [phone] Bilirubin [Mass/Vol] 0.40 mg/dL Invalid Interpretation Code 0.20-1.00 [facility] Work Phone: [phone] Bilirubin.direct [Mass/Vol] 0.10 mg/dL Invalid Interpretation Code 0.00-0.30 [facility] Work Phone: [phone] Globulin 4.6 g/dL High 2.3-3.5 [facility] Work Phone: [phone] Globulin (S) [Mass/Vol] 4.6 g/dL High 2.3-3.5 [email or web address] Work Phone: [phone] Protein [Mass/Vol] 7.5 g/dL Invalid Interpretation Code 6.4-8.2 [facility] Work Phone: [phone] Replaced Document: Mayela Benitez 06-23-2015 EKG QRS axis -34 deg Invalid Interpretation Code [facility] Phone: [phone] electrocardiogram interpretation Sinus Bradycardia Low voltage in limb leads. 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 - Nonspecific T-abnormality. ABNORMAL Invalid Interpretation Code [facility] Work Phone: [phone] GE use only - for [employer] import when terms are not otherwise specified 487 ms Invalid Interpretation Code [facility] Phone: [phone] Interpretation Sinus Bradycardia Low voltage in limb leads. 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 - Nonspecific T-abnormality. ABNORMAL Invalid Interpretation Code [facility] Work Phone: [phone] P [place] 53 deg Invalid Interpretation Code [facility] Work Phone: [phone] P wave axis, electrocardiogram 53 deg Invalid Interpretation Code [facility] Work Phone: [phone] NE Interval 196 ms Invalid Interpretation Code [facility] Work Phone: [phone] NE interval, electrocardiogram 196 ms Invalid Interpretation Code [facility] Work Phone: [phone] Pulse (Heart Rate) 59 /min Invalid Interpretation Code [facility] Work Phone: [phone] QRS axis, electrocardiogram -34 deg Invalid Interpretation Code [facility] Work Phone: [phone] QRS Duration 100 ms Invalid Interpretation Code [facility] Work Phone: [phone] QRS duration, electrocardiogram 100 ms Invalid Interpretation Code [facility] Work Phone: [phone] QT Interval new path ms Invalid Interpretation Code [facility] Work Phone: [phone] QT interval, electrocardiogram new path ms Invalid Interpretation Code [facility] Work Phone: [phone] QTc Miller 487 ms Invalid Interpretation Code [facility] Work Phone: [phone] T [place] -1 deg Invalid Interpretation Code [facility] Work Phone: [phone] T wave axis, electrocardiogram -1 deg Invalid Interpretation Code [facility] Work Phone: [phone] Office Visit: [facility] 08-15-19 15 cardiac risk group C Invalid Interpretation Code [facility] Work Phone: [phone] General cardiovascular disease 10Y risk [#] [place] N/A Invalid Interpretation Code [facility] Work Phone: [phone] Tobacco smoking status [facility] Never Invalid Interpretation Code [facility] Work Phone: [phone] Replaced Document: [facility] CG Observationson 05-17-2013 Pulse (Heart Rate) 410 ms Invalid Interpretation Code [facility] Work Phone: [phone]) Clinical Lists Update: 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 05-22-2011 Anion gap 5 mmol/L Invalid Interpretation Code [facility] Work Phone: [phone] Anion gap [Moles/Vol] 5 mmol/L [facility] Work Phone: [phone] Calcium [Mass/Vol] 8.2 mg/dL Invalid Interpretation Code [facility] Work Phone: [phone] Chloride [Moles/Vol] 105 mmol/L Invalid Interpretation Code [facility] Work Phone: [phone]) CO2 29.0 mmol/L Invalid Interpretation Code [facility] Work Phone: [phone]) CO2 (BldV) [Partial pressure] 29.0 mmol/L [facility] Work Phone: [phone] Creatinine [Mass/Vol] 1.4 mg/dL Invalid Interpretation Code [facility] Work Phone: 1) Erythrocytes (RBC) 4.07 10*6/uL Low [facility] Work Phone: 1) Glucose 102 mg/dL Invalid Interpretation Code [facility] Work Phone: 1) Glucose [Mass/Vol] 102 mg/dL [facility] Work Phone: [phone] Hematocrit (Bld) [Volume fraction] 34.9 % Low [facility] Work Phone: 1) Hematocrit (HCT) 34.9 % Low [facility] Work Phone: 1) Hemoglobin (Bld) [Mass/Vol] 11.9 g/dL Low [facility] Work Phone: 1) MCH 29.1 pg Invalid Interpretation Code [facility] Work Phone: 1) MCH (RBC) [Entitic mass] 29.1 pg [facility] Work Phone: ) MCV 85.7 fL Invalid Interpretation Code [facility] Work Phone: ) MCV (RBC) [Entitic vol] 85.7 fL [facility] Work Phone: 1() Platelets 281 10*3/mm3 Invalid Interpretation Code [facility] Work Phone: 1) Platelets (Bld) [#/Vol] 281 10*3/mm3 [facility] Work Phone: 1) Potassium [Moles/Vol] 4.7 mmol/L Invalid Interpretation Code [facility] Work Phone: ) RBC (Bld) [#/Vol] 4.07 10*6/uL Low [facility] Work Phone: 1) Sodium [Moles/Vol] 139 mmol/L Invalid Interpretation Code [facility] Work Phone: [phone] TSH Qn 1.62 u[iU]/mL Invalid Interpretation Code [facility] Work Phone: [phone] Urea nitrogen [Mass/Vol] 23 mg/dL Invalid Interpretation Code [facility] Work Phone: [phone] WBC (Bld) [#/Vol] 10.0 10*3/uL [facility] Work Phone: [phone] WBC (Leukocytes) 10.0 10*3/uL Invalid Interpretation Code [facility] Work Phone: [phone] Vital Signs Date Time Vital Sign Value Performing Clinician Faci lity 05-30-2025 15:04-0400 Body height 180.[address] Aroldo Julio MD Work Phone: 7(344)376-158682 [place] [address] 05-30-2025 15:04-0400 Body mass index (BMI) [Ratio] 23.8 kg/m2 Dr. Aroldo Julio MD Work Phone: 8(950)514-289505 [place] [address] 05-30-2025 15:04-0400 Body weight 77.[address] Aroldo Julio MD Work Phone: 3(880)921-496305 [place] [address] 05-30-2025 15:04-0400 Diastolic blood pressure 73 mm[Hg] Dr. Aroldo Julio MD Work Phone: 8(780)185-156205 [place] [address] 05-30-2025 15:04-0400 Heart rate 82 /min Dr. Aroldo Julio MD Work Phone: 0(808)263-084382 [place] [address] 05-30-2025 15:04-0400 Respiratory rate 16 /min Dr. Aroldo Julio MD Work Phone: 3(035)415-854982 [place] [address] 05-30-2025 15:04-0400 Systolic blood pressure 109 mm[Hg] Dr. Aroldo Julio MD Work Phone: 0(521)148-458805 [place] [address] 03-27-2025 12:15-0400 Body temperature 98.1 [degF] Dr. Aroldo Julio MD Work Phone: 1(681)135-175705 [place] [address] 03-27-2025 12:15-0400 Diastolic blood pressure 79 mm[Hg] Dr. Aroldo Julio MD Work Phone: 8(046)659-202705 [place] [address] 03-27-2025 12:15-0400 Heart rate 84 /min Dr. Aroldo Julio MD Work Phone: 3(114)204-450805 [place] [address] 03-27-2025 12:15-0400 Respiratory rate 16 /min Dr. Aroldo Julio MD Work Phone: 2(458)433-009705 [place] [address] 03-27-2025 12:15-0400 SaO2% (BldA) [Mass fraction] 99 % Dr. Aroldo Julio MD Work Phone: 7(404)130-810605 [place] [address] 03-27-2025 12:15-0400 Systolic blood pressure 122 mm[Hg] Dr. Aroldo Julio MD Work Phone: 9(414)703-813705 [place] [address] 03-27-2025 10:00-0400 Body height 180.[address] Aroldo Julio MD Work Phone: 1(778)348-062305 [place] [address] 03-27-2025 10:00-0400 Body mass index (BMI) [Ratio] 23.1 kg/m2 Dr. Aroldo Julio MD Work Phone: 1(768)184-229805 [place] [address] 03-27-2025 10:00-0400 Body weight 75.[address] Aroldo Julio MD Work Phone: 4(651)403-371505 [place] [address] 03-12-2025 10:21-0400 Body temperature 97.7 [degF] Dr. Aroldo Julio MD Work Phone: 1(405)236-096705 [place] [address] 03-12-2025 10:21-0400 Diastolic blood pressure 80 mm[Hg] Dr. Aroldo Julio MD Work Phone: 7(603)665-932505 [place] [address] 03-12-2025 10:21-0400 Heart rate 82 /min Dr. Aroldo Julio MD Work Phone: 7(528)754-137605 [place] [address] 03-12-2025 10:21-0400 Respiratory rate 18 /min Dr. Aroldo Julio MD Work Phone: 0(098)987-383205 [place] [address] 03-12-2025 10:21-0400 SaO2% (BldA) [Mass fraction] 98 % Dr. Aroldo Julio MD Work Phone: 5(678)257-931205 [place] [address] 03-12-2025 10:21-0400 Systolic blood pressure 122 mm[Hg] Dr. Aroldo Julio MD Work Phone: 2(777)247-564205 [place] [address] 02-06-2025 08:38-0400 Body temperature 98.1 [degF] Dr. Aroldo Julio MD Work Phone: 5(403)163-102305 [place] [address] 02-06-2025 08:38-0400 Diastolic blood pressure 52 mm[Hg] Dr. Aroldo Julio MD Work Phone: 0(804)820-962605 [place] [address] 02-06-2025 08:38-0400 Heart rate 72 /min Dr. Aroldo Julio MD Work Phone: 1(781)546-988705 [place] [address] 02-06-2025 08:38-0400 Respiratory rate 18 /min Dr. Aroldo Julio MD Work Phone: 0(878)093-528105 [place] [address] 02-06-2025 08:38-0400 SaO2% (BldA) [Mass fraction] 96 % Dr. Aroldo Julio MD Work Phone: 9(374)870-830105 [place] [address] 02-06-2025 08:38-0400 Systolic blood pressure 110 mm[Hg] Dr. Aroldo Julio MD Work Phone: 0(050)567-570205 [place] [address] 01-09-2025 08:57-0400 Body temperature 97.8 [degF] Dr. Aroldo Julio MD Work Phone: 0(544)032-518105 [place] [address] 01-09-2025 08:57-0400 Diastolic blood pressure 60 mm[Hg] Dr. Aroldo Julio MD Work Phone: 2(109)291-615605 [place] [address] 01-09-2025 08:57-0400 Heart rate 66 /min Dr. Aroldo Julio MD Work Phone: 8(507)117-173048 [address] 01-09-2025 08:57-0400 SaO2% (BldA) [Mass fraction] 91 % Dr. Aroldo Julio MD Work Phone: 5(393)713-440505 [place] [address] 01-09-2025 08:57-0400 Systolic blood pressure 100 mm[Hg] Dr. Arlodo Julio MD Work Phone: 3(769)559-762705 [place] [address] 01-02-2025 11:46-0400 Body height 180.[address] Aroldo Julio MD Work Phone: 2(182)905-392705 [place] [address] 01-02-2025 11:46-0400 Body mass index (BMI) [Ratio] 23.8 kg/m2 Dr. Aroldo Julio MD Work Phone: 1(346)246-098505 [place] [address] 01-02-2025 11:46-0400 Body temperature 98 [degF] Dr. Aroldo Julio MD Work Phone: 7(195)060-380405 [place] [address] 01-02-2025 11:46-0400 Body weight 77.[address] Aroldo Julio MD Work Phone: 0(860)058-793705 [place] [address] 01-02-2025 11:46-0400 Diastolic blood pressure 66 mm[Hg] Dr. Aroldo Julio MD Work Phone: 7(817)498-961305 [place] [address] 01-02-2025 11:46-0400 Heart rate 68 /min Dr. Aroldo Julio MD Work Phone: 5(147)155-438105 [place] [address] 01-02-2025 11:46-0400 Respiratory rate 17 /min Dr. Aroldo Julio MD Work Phone: 7(660)845-585305 [place] [address] 01-02-2025 11:46-0400 SaO2% (BldA) [Mass fraction] 96 % Dr. Aroldo Julio MD Work Phone: 3(787)379-830105 [place] [address] 01-02-2025 11:46-0400 Systolic blood pressure 110 mm[Hg] Dr. Aroldo Julio MD Work Phone: 2(116)969-873305 [place] [address] 11-19-2024 13:01-0400 Body mass index (BMI) [Ratio] 24.8 kg/m2 Dr. Aroldo Julio MD Work Phone: 1(706)672-231982 [place] [address] 11-19-2024 13:01-0400 Body weight 80.[address] Aroldo Julio MD Work Phone: 8(833)628-673282 [place] [address] 11-19-2024 13:01-0400 Diastolic blood pressure 56 mm[Hg] Dr. Aroldo Julio MD Work Phone: 3(906)850-538605 [place] [address] 11-19-2024 13:01-0400 Heart rate 82 /min Dr. Aroldo Julio MD Work Phone: 0(337)843-638505 [place] [address] 11-19-2024 13:01-0400 Respiratory rate 18 /min Dr. Aroldo Julio MD Work Phone: 0(608)385-361105 [place] [address] 11-19-2024 13:01-0400 SaO2% (BldA) [Mass fraction] 94 % Dr. Aroldo Julio MD Work Phone: 1(555)842-160682 [place] [address] 11-19-2024 13:01-0400 Systolic blood pressure 109 mm[Hg] Dr. Aroldo Julio MD Work Phone: 4(989)412-145982 [place] [address] 06-10-2024 10:11-0400 Body mass index (BMI) [Ratio] 25.46 kg/m2 Libertad Julio MD Work Phone: [facility] 06-10-2024 10:11-0400 Body weight 80.49 kg Libertad Julio MD Work Phone: [facility] 06-10-2024 10:11-0400 Diastolic blood pressure 62 mm[Hg] Libertad Julio MD Work Phone: [facility] 06-10-2024 10:11-0400 Heart rate 70 /min Libertad Julio MD Work Phone: [facility] 06-10-2024 10:11-0400 Respiratory rate 16 /min Libertad Julio MD Work Phone: [facility] 06-10-2024 10:11-0400 SaO2% (BldA) [Mass fraction] 96 % Libertad Julio MD Work Phone: [facility] 06-10-2024 10:11-0400 Systolic blood pressure 100 mm[Hg] Libertad Julio MD Work Phone: [facility] 05-15-2024 08:14-0400 Body mass index (BMI) [Ratio] 25.18 kg/m2 Romina Podlogar HYDROTREATER OPERATOR.MEDICAL REFERRAL COORDINATOR Work Phone: [facility] 05-15-2024 08:14-0400 Body weight 79.6 kg Romina Podlogar HYDROTREATER OPERATOR.MEDICAL REFERRAL COORDINATOR Work Phone: [facility] 05-15-2024 08:14-0400 Diastolic blood pressure 60 mm[Hg] Romina Podlogar HYDROTREATER OPERATOR.MEDICAL REFERRAL COORDINATOR Work Phone: [facility] 05-15-2024 08:14-0400 Heart rate 59 /min Romina Podlogar HYDROTREATER OPERATOR.MEDICAL REFERRAL COORDINATOR Work Phone: [facility] 05-15-2024 08:14-0400 Respiratory rate 18 /min Romina Podlogar HYDROTREATER OPERATOR.MEDICAL REFERRAL COORDINATOR Work Phone: [facility] 05-15-2024 08:14-0400 SaO2% (BldA) [Mass fraction] 94 % Romina Podlogar HYDROTREATER OPERATOR.MEDICAL REFERRAL COORDINATOR Work Phone: [facility] 05-15-2024 08:14-0400 Systolic blood pressure 98 mm[Hg] Romina Podlogar HYDROTREATER OPERATOR.MEDICAL REFERRAL COORDINATOR Work Phone: [facility] 01-23-2024 08:31-0400 Body mass index (BMI) [Ratio] 25.94 kg/m2 Libertad Julio MD Work Phone: [facility] 01-23-2024 08:31-0400 Body temperature 97.5 [degF] Libertad Julio MD Work Phone: [facility] 01-23-2024 08:31-0400 Body weight 82.01 kg Libertad Julio MD Work Phone: [facility] 01-23-2024 08:31-0400 Diastolic blood pressure 74 mm[Hg] Libertad Julio MD Work Phone: [facility] 01-23-2024 08:31-0400 Heart rate 83 /min Libertad Julio MD Work Phone: [facility] 01-23-2024 08:31-0400 Respiratory rate 18 /min Libertad Julio MD Work Phone: [facility] 01-23-2024 08:31-0400 SaO2% (BldA) [Mass fraction] 96 % Libertad Julio MD Work Phone: [facility] 01-23-2024 08:31-0400 Systolic blood pressure 110 mm[Hg] Libertad Julio MD Work Phone: [facility] [facility] 12-11-2023 20:21-0400 Body temperature 97.3 [degF] Dr. Aroldo Julio Work Phone: [facility] 12-11-2023 20:21-0400 Diastolic blood pressure 77 mm[Hg] Dr. Aroldo Julio Work Phone: [facility] 12-11-2023 20:21-0400 Heart rate 65 /min Dr. Aroldo Julio Work Phone: [facility] 12-11-2023 20:21-0400 Respiratory rate 18 /min Dr. Aroldo Julio Work Phone: [facility] 12-11-2023 20:21-0400 SaO2% (BldA) [Mass fraction] 95 % Dr. Aroldo Julio Work Phone: [facility] 12-11-2023 20:21-0400 Systolic blood pressure 125 mm[Hg] Dr. Aroldo Julio Work Phone: [facility] 12-11-2023 19:32-0400 Body height 180.[address] Aroldo Julio Work Phone: [facility] 12-11-2023 19:32-0400 Body mass index (BMI) [Ratio] 25.2 kg/m2 Dr. Aroldo Julio Work Phone: [facility] 12-11-2023 19:32-0400 Body weight [address] Aroldo Julio Work Phone: [facility] 11-14-2023 08:51-0400 Body weight 82.92 kg Romina Podlogar HYDROTREATER OPERATOR.MEDICAL REFERRAL COORDINATOR Work Phone: [facility] 11-14-2023 08:51-0400 Diastolic blood pressure 68 mm[Hg] Romina Podlogar HYDROTREATER OPERATOR.MEDICAL REFERRAL COORDINATOR Work Phone: [facility] 11-14-2023 08:51-0400 Heart rate 62 /min Romina Podlogar HYDROTREATER OPERATOR.MEDICAL REFERRAL COORDINATOR Work Phone: [facility] 11-14-2023 08:51-0400 Respiratory rate 18 /min Romina Podlogar HYDROTREATER OPERATOR.MEDICAL REFERRAL COORDINATOR Work Phone: [facility] 11-14-2023 08:51-0400 SaO2% (BldA) [Mass fraction] 97 % Romina Podlogar HYDROTREATER OPERATOR.MEDICAL REFERRAL COORDINATOR Work Phone: [facility] 11-14-2023 08:51-0400 Systolic blood pressure 94 mm[Hg] Romina Podlogar HYDROTREATER OPERATOR.MEDICAL REFERRAL COORDINATOR Work Phone: [facility] 10-17-2023 07:45-0500 Body height 180.[address] Aroldo Julio Work Phone: [facility] 10-17-2023 07:45-0500 Body weight 86.[address] Aroldo Julio Work Phone: [facility] 10-16-2023 08:19-0500 Body mass index (BMI) [Ratio] 26.6 kg/m2 Dr. Aroldo Julio Work Phone: [facility] 09-25-2023 08:34-0500 Body height 180.[address] Aroldo Julio Work Phone: 0(357)137-210105 [place] [address] 09-25-2023 08:34-0500 Body mass index (BMI) [Ratio] 25.1 kg/m2 Dr. Aroldo Julio Work Phone: 0(160)916-449605 [place] [address] 09-25-2023 08:34-0500 Body weight 81.[address] Aroldo Julio Work Phone: 9(452)811-534305 [place] [address] 09-25-2023 08:34-0500 Diastolic blood pressure 75 mm[Hg] Dr. Aroldo Julio Work Phone: 9(127)982-666705 [place] [address] 09-25-2023 08:34-0500 Heart rate 75 /min Dr. Aroldo Julio Work Phone: 9(908)775-330005 [place] [address] 09-25-2023 08:34-0500 Respiratory rate 18 /min Dr. Aroldo Julio Work Phone: 9(575)422-961805 [place] [address] 09-25-2023 08:34-0500 Systolic blood pressure 111 mm[Hg] Dr. Aroldo Julio Work Phone: 6(280)835-478205 [place] [address] 04-21-2023 15:10-0400 Body height 180.[address] Aroldo Julio Work Phone: 9(456)468-236605 [place] [address] 04-21-2023 15:10-0400 Body mass index (BMI) [Ratio] 26.6 kg/m2 Dr. Aroldo Julio Work Phone: 0(224)956-371505 [place] [address] 04-21-2023 15:10-0400 Body temperature 96.8 [degF] Dr. Aroldo Julio Work Phone: 8(178)164-258505 [place] [address] 04-21-2023 15:10-0400 Body weight 86.[address] Aroldo Julio Work Phone: 2(576)270-193105 [place] [address] 04-21-2023 15:10-0400 Diastolic blood pressure 64 mm[Hg] Dr. Aroldo Julio Work Phone: 8(885)076-499405 [place] [address] 04-21-2023 15:10-0400 Heart rate 82 /min Dr. Aroldo Julio Work Phone: 9(575)660-624582 [place] [address] 04-21-2023 15:10-0400 Respiratory rate 16 /min Dr. Aroldo Julio Work Phone: 8(805)618-475305 [place] [address] 04-21-2023 15:10-0400 SaO2% (BldA) [Mass fraction] 93 % Dr. Aroldo Julio Work Phone: 4(954)814-180605 [place] [address] 04-21-2023 15:10-0400 Systolic blood pressure 97 mm[Hg] Dr. Aroldo Julio Work Phone: 8(685)021-899805 [place] [address] 02-17-2023 08:41-0400 Body mass index (BMI) [Ratio] 24.4 kg/m2 Dr. Aroldo Julio Work Phone: 2(822)102-970505 [place] [address] 02-17-2023 08:41-0400 Body weight 79.[address] Aroldo Julio Work Phone: 1(719)407-839605 [place] [address] 02-17-2023 08:41-0400 Diastolic blood pressure 77 mm[Hg] Dr. Aroldo Julio Work Phone: 3(762)158-955105 [place] [address] 02-17-2023 08:41-0400 Heart rate 71 /min Dr. Aroldo Julio Work Phone: 0(163)803-500805 [place] [address] 02-17-2023 08:41-0400 Respiratory rate 16 /min Dr. Aroldo Julio Work Phone: 8(819)231-404305 [place] [address] 02-17-2023 08:41-0400 SaO2% (BldA) [Mass fraction] 95 % Dr. Aroldo Julio Work Phone: 0(227)176-438405 [place] [address] 02-17-2023 08:41-0400 Systolic blood pressure 110 mm[Hg] Dr. Aroldo Julio Work Phone: 0(949)879-108405 [place] [address] 09-12-2022 15:23-0500 Body weight 80.74 kg Libertad Julio MD Work Phone: 4(254)222-948679 [place] [address] 09-12-2022 15:23-0500 Diastolic blood pressure 66 mm[Hg] Libertad Julio MD Work Phone: [facility] 09-12-2022 15:23-0500 Heart rate 61 /min Libertad uJlio MD Work Phone: [facility] 09-12-2022 15:23-0500 Respiratory rate 16 /min Libertad Julio MD Work Phone: [facility] 09-12-2022 15:23-0500 SaO2% (BldA) [Mass fraction] 96 % Libertad Julio MD Work Phone: [facility] 09-12-2022 15:23-0500 Systolic blood pressure 114 mm[Hg] Libertad Julio MD Work Phone: [facility] 08-16-2022 08:13-0500 Body height 180.[address] Aroldo Julio Work Phone: 0(566)017-498082 [place] [address] 08-16-2022 08:13-0500 Body mass index (BMI) [Ratio] 25 kg/m2 Dr. Aroldo Julio Work Phone: 2(821)766-094782 [place] [address] 08-16-2022 08:13-0500 Body weight 81.[address] Aroldo Julio Work Phone: 6(304)129-275705 [place] [address] 08-16-2022 08:13-0500 Diastolic blood pressure 73 mm[Hg] Dr. Aroldo Julio Work Phone: 0(662)022-221405 [place] [address] 08-16-2022 08:13-0500 Heart rate 76 /min Dr. Aroldo Julio Work Phone: 6(435)084-920705 [place] [address] 08-16-2022 08:13-0500 Respiratory rate 18 /min Dr. Aroldo Julio Work Phone: 7(210)367-602105 [place] [address] 08-16-2022 08:13-0500 Systolic blood pressure 108 mm[Hg] Dr. Aroldo Julio Work Phone: 1(583)669-049882 [place] [address] 06-09-2022 19:59-0400 Body height 180.[address] Aroldo Julio Work Phone: 1(293)257-018782 [place] [address] Work Phone: 06-09-2022 19:59-0400 Body mass index (BMI) [Ratio] 24 kg/m2 Dr. Aroldo Julio Work Phone: [facility] 06-09-2022 19:59-0400 Body temperature 97.8 [degF] Dr. Aroldo Julio Work Phone: [facility] 06-09-2022 19:59-0400 Body weight 78.[address] Aroldo Julio Work Phone: [facility] 06-09-2022 19:59-0400 Diastolic blood pressure 88 mm[Hg] Dr. Aroldo Julio Work Phone: [facility] 06-09-2022 19:59-0400 Heart rate 84 /min Dr. Aroldo Julio Work Phone: [facility] 06-09-2022 19:59-0400 Respiratory rate 16 /min Dr. Aroldo Julio Work Phone: [facility] 06-09-2022 19:59-0400 SaO2% (BldA) [Mass fraction] 94 % Dr. Aroldo Julio Work Phone: [facility] 06-09-2022 19:59-0400 Systolic blood pressure 146 mm[Hg] Dr. Aroldo Julio Work Phone: [facility] 04-11-2022 08:26-0400 Body weight 81.28 kg Libertad Julio MD Work Phone: [facility] 04-11-2022 08:26-0400 Diastolic blood pressure 62 mm[Hg] Libertad Julio MD Work Phone: [facility] 04-11-2022 08:26-0400 Heart rate 55 /min Libertad Julio MD Work Phone: [facility] 04-11-2022 08:26-0400 Respiratory rate 16 /min Libertad Julio MD Work Phone: [facility] 04-11-2022 08:26-0400 SaO2% (BldA) [Mass fraction] 97 % Libertad Julio MD Work Phone: [facility] 04-11-2022 08:26-0400 Systolic blood pressure 106 mm[Hg] Libertad Julio MD Work Phone: [facility] 01-18-2022 08:21-0400 Body temperature 96.8 [degF] Romina Podlogar HYDROTREATER OPERATOR.MEDICAL REFERRAL COORDINATOR Work Phone: [facility] 01-18-2022 08:21-0400 Body weight 78.83 kg Romina Podlogar HYDROTREATER OPERATOR.MEDICAL REFERRAL COORDINATOR Work Phone: [facility] 01-18-2022 08:21-0400 Diastolic blood pressure 60 mm[Hg] Romina Podlogar HYDROTREATER OPERATOR.MEDICAL REFERRAL COORDINATOR Work Phone: [facility] 01-18-2022 08:21-0400 Heart rate 67 /min Romina Podlogar HYDROTREATER OPERATOR.MEDICAL REFERRAL COORDINATOR Work Phone: [facility] 01-18-2022 08:21-0400 Respiratory rate 20 /min Romina Podlogar HYDROTREATER OPERATOR.MEDICAL REFERRAL COORDINATOR Work Phone: [facility] 01-18-2022 08:21-0400 SaO2% (BldA) [Mass fraction] 97 % Romina Podlogar HYDROTREATER OPERATOR.MEDICAL REFERRAL COORDINATOR Work Phone: [facility] 01-18-2022 08:21-0400 Systolic blood pressure 92 mm[Hg] Romina Podlogar HYDROTREATER OPERATOR.MEDICAL REFERRAL COORDINATOR Work Phone: [facility] 03-24-2017 13:24-0400 BMI (Body Mass Index) 22.77 kg/m2 [facility] Work Phone: 03-24-2017 13:24-0400 BP Diastolic 62 mm[Hg] [facility] Work Phone: 03-24-2017 13:24-0400 BP Systolic 110 mm[Hg] [facility] Work Phone: 03-24-2017 13:24-0400 Height 185.42 cm [facility] Work Phone: 03-24-2017 13:24-0400 Pulse (Heart Rate) 60 /min [facility] Work Phone: 03-24-2017 13:24-0400 Respiratory Rate 18 /min [facility] Work Phone: 03-24-2017 13:24-0400 Weight 78.29 kg [facility] Work Phone: 10-28-2016 10:23-0400 BMI (Body Mass Index) 21.9 kg/m2 [facility] Work Phone: 10-28-2016 10:23-0400 Body weight 75.3 kg [facility] Work Phone: 10-28-2016 10:23-0400 BP Diastolic 60 mm[Hg] [facility] Work Phone: 10-28-2016 10:23-0400 BP Systolic 112 mm[Hg] [facility] Work Phone: 10-28-2016 10:23-0400 Height 185.42 cm [facility] Work Phone: 10-28-2016 10:23-0400 Pulse (Heart Rate) 74 /min [facility] Work Phone: 10-28-2016 10:23-0400 Respiratory Rate 18 /min [facility] Work Phone: 10-28-2016 10:23-0400 Weight 75.3 kg [facility] Work Phone: 09-22-2016 09:12-0500 BSA (Body Surface Area) 2.02 m2 [facility] Work Phone: 06-23-2015 14:46-0500 Heart rate 59 /min Sabina Nino RN [place] [facility] Work Phone: 05-17-2013 08:31-0400 Heart rate 410 [facility] Encounters Encounter Date Encounter Type Care Provider Facility Start: 06-03-2025 End: 06-03-[address] Ten Tineo MD [facility] Work Phone: Start: 06-03-2025 End: 06-03-2025 [facility] Start: 05-30-2025 End: 05-30-[address] Ten Tineo MD [facility] Work Phone: Start: 05-30-2025 End: 05-30-2025 ambulatory [facility] Facility:[facility] Start: 04-03-2025 End: 04-03-2025 Telephone encounter Libertad Julio MD Work Phone: [facility] [place] Comment on above: Patient Question Start: 03-27-2025 End: 03-27-2025 Emergency department patient visit Dr. Aroldo Julio MD Work Phone: -Emergency Department Work Phone: Start: 03-12-2025 End: 03-12-2025 Patient encounter procedure Gianfranco James NP-C [facility] Work Phone: Start: 03-12-2025 End: 03-12-[address] Aroldo Julio MD Work Phone: [facility] Start: 02-18-2025 End: 02-18-2025 Patient encounter procedure Tamara Nino -[facility] Work Phone: Start: 02-18-2025 End: 02-18-[address] Aroldo Julio MD Work Phone: -[facility] Start: 02-06-2025 End: 02-06-2025 Patient encounter procedure Magdaleno Coles PA -[facility] Work Phone: Start: 02-06-2025 End: 02-06-[address] Aroldo Julio MD Work Phone: [facility] Work Phone: Start: 01-09-2025 End: 01-09-2025 Patient encounter procedure Magdaleno QUINTEROS -[facility] Work Phone: Start: 01-09-2025 End: 01-09-[address] Aroldo Julio MD Work Phone: [facility] Work Phone: Start: 01-02-2025 End: 01-02-2025 Patient encounter procedure Magdaleno QUINTEROS [facility] Work Phone: Start: 01-02-2025 End: 01-02-2025 ambulatory Aroldo Julio Facility:[facility] Start: 12-06-2024 End: 12-06-2024 ambulatory LIBERTAD JULIO Facility:[facility] Start: 12-06-2024 Encounter for genera l adult medical examination without abnormal findings JONATHAN DEYSI [facility] Start: 11-19-2024 End: 11-19-[address] Aroldo Julio MD Work Phone: [facility] Work Phone: Start: 11-19-2024 End: 11-19-[address] Ten Tineo MD -[facility] Work Phone: Start: 11-04-2024 End: 11-04-2024 ambulatory John Lozano [facility] Start: 11-04-2024 End: 11-04-2024 [facility] Comment on above: Population Health Na v[facility] Out[facility] ([facility]) Start: 09-23-2024 ambulatory Aroldo [place] [facility]:[facility] Start: 09-13-2024 End: 09-13-2024 Telephone encounter Libertad Julio MD Work Phone: [facility] [place] Start: 09-10-2024 End: 09-10-2024 ambulatory LIBERTAD JULIO Facility:[facility] Start: 09-10-2024 End: 09-10-2024 Subsequent hospital visit by physician [facility] ([facility]) Work Phone: Cat Scan Comment on above: Lung nodules [R91.8] Start: 08-19-2024 End: 08-19-2024 ambulatory Tenleigha Tineo Facility:[facility] Start: 06-17-2024 End: 06-17-2024 ambulatory Aroldo Julio Facility:[facility] Start: 06-11-2024 End: 06-11-2024 Telephone encounter Libertad Julio MD Work Phone: [facility] Comment on above: Results Start: 06-10-2024 End: 06-10-2024 Telephone encounter Libertad Julio MD Work Phone: [facility] Comment on above: Results Start: 06-10-2024 End: 06-10-2024 Subsequent hospital visit by physician Xr [facility] Work Phone: Radiology Comment on above: Fall in home, subseq uent encounter [W19.XXXD, Y92.009] Start: 06-10-2024 End: 06-10-2024 ambulatory LIBERTAD JULIO Facility:[facility] Start: 06-10-2024 End: 06-10-2024 Patient encounter procedure Libertad Julio MD Work Phone: [facility] Comment on above: Fall in home, subseq uent encounter (Primary Dx); Acute hip pain, left; Lung nodules; Acute on chronic systolic congestive heart failure (HCC); Coronary artery disease involving [place] heart without angina pectoris, unspecified vessel or lesion type; Presence of combination internal cardiac defibrillator (ICD) and pacemaker; Hypoxia; Stage 3a chronic kidney disease (HCC); Primary hypertension Start: 06-10-2024 End: 06-10-2024 ambulatory LIBERTAD JULIO Facility:[facility] Start: 05-16-2024 End: 05-17-2024 Telephone encounter Libertad Julio MD Work Phone: [facility] [place] Comment on above: Results Start: 05-15-2024 End: 05-15-2024 ambulatory ROMINA LOZANO Facility:[facility] Start: 05-15-2024 End: 05-15-2024 Patient encounter procedure Romina Lozano APRN.MEDICAL REFERRAL COORDINATOR Work Phone: [facility] Comment on above: Primary hypertension (Primary Dx); Stage 3b chronic kidney disease (HCC); Coronary artery disease involving [place] heart without angina pectoris, unspecified vessel or lesion type; Hyperlipidemia, unspecified hyperlipidemia type Start: 05-15-2024 End: 05-15-2024 ambulatory LIBERTAD JULIO Facility:[facility] Start: 02-21-2024 ambulatory No Pcp HYDROTREATER OPERATOR [facility] [place] Start: 02-21-2024 Patient encounter procedure No Pcp HYDROTREATER OPERATOR [facility] Start: 01-24-2024 Telephone encounter Aroldo Julio MD Work Phone: [facility] Comment on above: Patient Request Start: 01-23-2024 End: 01-23-2024 Patient encounter procedure Libertad Jluio MD Work Phone: [facility] Comment on above: Olecranon bursitis o f left elbow (Primary Dx) Start: 12-12-2023 Telephone encounter Aroldo Julio MD Work Phone: [facility] Comment on above: ER F/U Start: 12-11-2023 End: 12-11-2023 Emergency department patient visit Dr. Aroldo Julio Work Phone: [facility]gency [facility] Work Phone: Start: 12-05-2023 Telephone encounter Romina watters HYDROTREATER OPERATOR.MEDICAL REFERRAL COORDINATOR Work Phone: [facility] Comment on above: Results Start: 11-14-2023 End: 11-14-2023 Patient encounter procedure Romina Lozano APRN.MEDICAL REFERRAL COORDINATOR Work Phone: [facility] Comment on above: Primary hypertension (Primary Dx); Atrial flutter, unspecified type (HCC); Stage 3b chronic kidney disease (HCC); Hyperlipidemia, unspecified hyperlipidemia type; Screening for depression; Coronary artery disease involving [place] heart without angina pectoris, unspecified vessel or lesion type Start: 11-06-2023 End: 11-06-[address] Aroldo Julio Work Phone: [facility] Work Phone: Start: 11-06-2023 End: 11-06-[address] Aroldo Julio Work Phone: [facility] Work Phone: Start: 10-26-2023 Non-patient / Non-visit Dr. Kev Julio Work Phone: [facility] Start: 10-26-2023 End: 10-26-[address] Aroldo Julio Work Phone: [facility] Work Phone: Start: 10-26-2023 End: 10-26-[address] Aroldo Julio Work Phone: [facility] Work Phone: Start: 10-24-2023 End: 10-24-[address] Aroldo Julio Work Phone: [facility] Work Phone: Start: 10-17-2023 End: 10-17-2023 Admission to same day surgery center Dr. Aroldo Julio Work Phone: [facility]-Night Shift Manager/Special Procedures Work Phone: Start: 10-17-2023 End: 10-17-[address] Aroldo Julio Work Phone: [facility] Work Phone: Start: 10-13-2023 Refill Libertad Julio MD Work Phone: [facility] Comment on above: Refill Request; Refi ll Request Start: 09-27-2023 End: 09-27-[address] Aroldo Julio Work Phone: [facility] Work Phone: Start: 09-27-2023 End: 09-27-[address] Aroldo Julio Work Phone: [facility]-Laboratory, Specimen Work Phone: Start: 09-25-2023 End: 09-25-[address] Aroldo Julio Work Phone: [facility] Work Phone: Start: 08-31-2023 End: 08-31-[address] Aroldo Julio Work Phone: [facility] Work Phone: Start: 06-29-2023 End: 06-29-[address] Aroldo Julio Work Phone: [facility] Work Phone: Start: 04-21-2023 End: 04-21-2023 Emergency department patient visit Dr. Aroldo Julio Work Phone: [facility]Emergency Department Work Phone: Start: 02-17-2023 End: 02-17-[address] Aroldo Julio Work Phone: [facility] Work Phone: Start: 01-23-2023 End: 01-23-[address] Aroldo Julio Work Phone: [facility] Work Phone: Start: 09-12-2022 End: 09-12-2022 Patient encounter procedure Libertad Julio MD Work Phone: [facility] [place] Comment on above: Leg pain, bilateral (Primary Dx); Atrial flutter, unspecified type (HCC); Chronic kidney disease, stage 3b (HCC) Start: 08-16-2022 End: 08-16-[address] Aroldo Julio Work Phone: [facility] Work Phone: Start: 08-16-2022 End: 08-16-[address] Aroldo Julio Work Phone: [facility] Start: 07-04-2022 End: 07-04-[address] Aroldo Julio Work Phone: [facility] Start: 06-09-2022 End: 06-09-2022 Emergency department patient visit Dr. Aroldo Julio Work Phone: [facility]Emergency [facility] Start: 04-11-2022 End: 04-11-2022 Patient encounter procedure Libertad Julio MD Work Phone: [facility] Comment on above: Coronary artery dise ase involving [place] heart without angina pectoris, unspecified vessel or lesion type (Primary Dx); Atrial flutter, unspecified type (HCC); Presence of combination internal cardiac defibrillator (ICD) and pacemaker; Stage 3b chronic kidney disease (HCC); TIA (transient ischemic attack); Primary hypertension; Hyperlipidemia, unspecified hyperlipidemia type; Refusal of statin medication by patient Start: 04-04-2022 End: 04-04-[address] Aroldo Julio Work Phone: [facility] Start: 02-03-2022 Telephone encounter Aroldo Julio MD Work Phone: [facility] Comment on above: Results Start: 02-02-2022 End: 02-02-2022 Subsequent hospital visit by physician [facility] (I-Stat) Work Phone: Cat Scan Comment on above: Hemoptysis [R04.2] Start: 01-18-2022 End: 06-07-2022 Subsequent hospital visit by physician Xr [facility] [place] Work Phone: Radiology Comment on above: Spitting up blood [R 04.2] Start: 01-18-2022 End: 01-18-2022 Patient encounter procedure Romina Marta CHILDS.MEDICAL REFERRAL COORDINATOR Work Phone: [facility] [place] Comment on above: Spitting up blood (P rimary Dx) Start: 01-17-2022 ambulatory Libertad Julio MD Work Phone: [facility] Comment on above: Coughing Up Blood Start: 01-17-2022 Telephone encounter Romina Grace watters APRN.MEDICAL REFERRAL COORDINATOR Work Phone: [facility] [place] Comment on above: Returning Patient's Call Start: 10-14-2021 Telephone encounter Aroldo Julio MD Work Phone: [facility] [place] Comment on above: Results Procedures Date Procedure Procedure Detail Performing Clinician Start: 03-27-2025 CT cervical spine wi thout contrast Dr. Aroldo Julio MD Work Phone: Start: 03-27-2025 CT of head without contrast Dr. Aroldo Julio MD Work Phone: Start: 12-06-2024 Adult depression screening assessment Libertad Julio MD Work Phone: Start: 06-10-2024 Radex hip unilateral with pelvis 2-3 views Libertad Julio MD Work Phone: Start: 05-15-2024 Ecg routine ecg w/le ast 12 lds i&r only [facility] Provider Start: 09-27-2023 Measurement of occul t blood in stool specimen using immunoassay Dr. Aroldo Julio Work Phone: Start: 09-25-2023 Plain chest X-ray Dr. Lupe Julio Work Phone: Start: 04-21-2023 Radiologic examinati on of knee Dr. Aroldo Julio Work Phone: Start: 08-16-2022 Plain chest X-ray Dr. Lupe Julio Work Phone: Start: 06-09-2022 Plain x-ray of pelvi s and lower extremity Dr. Aroldo Julio Work Phone: Start: 02-02-2022 Ct thorax w/o contra st material Romina Podlogar HYDROTREATER OPERATOR.MEDICAL REFERRAL COORDINATOR Work Phone: Start: 01-18-2022 Radiologic exam ches t 2 views Romina Podlogar HYDROTREATER OPERATOR.MEDICAL REFERRAL COORDINATOR Work Phone: Start: 01-18-2022 Urnls dip stick/tabl et rgnt auto w/o microscopy Romina Podlogar HYDROTREATER OPERATOR.MEDICAL REFERRAL COORDINATOR Work Phone: Start: 07-13-2017 End: 07-13-2017 Prgrmg eval implantable in prsn dual lead abran Tineo MD Start: 04-12-2017 End: 04-12-2017 Prgrmg eval implantable in prsn dual lead abran Tineo MD Start: 04-12-2017 End: 04-12-2017 Icd device progr eval, dual Ten Tineo MD Start: 03-24-2017 End: 03-24-2017 EXHAUSTER ENGINEER Wisam Waters NP Work Phone: Start: 03-24-2017 End: 03-24-2017 Follow Up Appt 6 months Wisam Waters NP Work Phone: Start: 03-24-2017 End: 03-24-2017 EXHAUSTER ENGINEER Wisam Waters LAN ANALYST Work Phone: Start: 03-24-2017 End: 03-24-2017 Follow Up Appt 6 months Wisam Waters NP Work Phone: Start: 01-04-2017 End: 03-24-2017 Follow Up Appt 3 months Joann Laurent Start: 01-04-2017 End: 03-24-2017 Pacer Clinic Ten Tineo MD Start: 01-04-2017 End: 01-05-2017 Prgrmg eval implantable in prsn dual lead dfb Ten Tineo MD Start: 01-04-2017 End: 03-24-2017 Follow Up Appt 3 months Joann Laurent Start: 01-04-2017 End: 01-05-2017 Icd device progr eval, dual Ten Tineo MD Start: 01-04-2017 End: 03-24-2017 Pacer Clinic Ten Tineo MD Start: 10-28-2016 End: 10-28-2016 Follow Up Appt 6 months Joann Laurent Start: 10-28-2016 End: 10-28-2016 MMM Ten Tineo MD Start: 10-28-2016 End: 10-28-2016 Documentation [...] implantable in prsn dual lead dfb Ten Tnieo MD Start: 09-22-2016 End: 02-16-2017 *BMP Ten Tineo MD Start: 09-22-2016 End: 02-16-2017 *CBC with Differential Ten Tineo MD Start: 09-22-2016 End: 03-24-2017 Follow Up Appt 3 months Joann Laurent Start: 09-22-2016 End: 09-22-2016 Follow Up Appt 6 months Joann Laurent Start: 09-22-2016 End: 09-22-2016 Icd device progr eval, dual Ten Tineo MD Start: 09-22-2016 End: 02-16-2017 Magnesium Ten Tineo MD Start: 09-22-2016 End: 09-22-2016 MMJoann Tineo MD Start: 09-22-2016 End: 03-24-2017 Pacer Clinic Ten Tineo MD Start: 07-04-2016 End: 03-24-2017 Follow Up Appt 3 months Gladys conn PA-C Work Phone: Start: 07-04-2016 End: 03-24-2017 Pacer Clinic Gladys Rodriguez PA-C Work Phone: Start: 07-04-2016 End: 07-04-2016 Prgrmg eval implantable in prsn dual lead dfb Gladys Rodriguez PA-C Work Phone: Start: 07-04-2016 End: 03-24-2017 Follow Up Appt 3 months Gladys conn PA-C Work Phone: Start: 07-04-2016 End: 07-04-2016 Icd device progr eval, dual Gladys Rodriguez PA-C Work Phone: Start: 07-04-2016 End: 03-24-2017 Pacer Clinic Gladys Rodriguez PA-C Work Phone: Start: 03-25-2016 End: 03-24-2017 Follow Up Appt 3 months Joann Laurent Start: 03-25-2016 End: 03-25-2016 Follow Up Appt 6 months Joann Laurent Start: 03-25-2016 End: 03-25-2016 LEONARDO Tineo MD Start: 03-25-2016 End: 03-24-2017 Pacer Clinic Ten Tineo MD Start: 03-25-2016 End: 03-25-2016 Prgrmg eval implantable in prsn dual lead dfb Ten Tineo MD Start: 03-25-2016 End: 03-24-2017 Follow Up Appt 3 months Joann Laurent Start: 03-25-2016 End: 03-25-2016 Follow Up Appt 6 months Joann Laurent Start: 03-25-2016 End: 03-25-2016 Icd device progr eval, dual Ten Tineo MD Start: 03-25-2016 End: 03-25-2016 LEONARDO Tineo MD Start: 03-25-2016 End: 03-24-2017 Pacer [...] 12-09-2015 Icd device progr eval, dual Ten Tineo MD Start: 12-09-2015 End: 03-24-2017 Pacer Clinic Ten Tineo MD Start: 09-07-2015 End: 09-07-2015 STEFFI Rodriguez PA-C Work Phone: Start: 09-07-2015 End: 03-24-2017 Follow Up Appt 3 months Gladys conn PA-C Work Phone: Start: 09-07-2015 End: 09-07-2015 Follow Up Appt 6 months Gladys conn PA-C Work Phone: Start: 09-07-2015 End: 03-24-2017 Pacer Clinic Gladys Rodriguez PA-C Work Phone: Start: 09-07-2015 End: 09-07-2015 Prgrmg eval implantable in prsn dual lead dfb Gladys Rodriguez PA-C Work Phone: Start: 09-07-2015 End: 09-07-2015 EXHAUSTER ENGINEER Gladys Rodriguez PA-C Work Phone: Start: 09-07-2015 End: 03-24-2017 Follow Up Appt 3 months Gladys conn PA-C Work Phone: Start: 09-07-2015 End: 09-07-2015 Follow Up Appt 6 months Gladys conn PA-C Work Phone: Start: 09-07-2015 End: 03-24-2017 Icd device progr eval, dual Gladys Rodriguez PA-C Work Phone: Start: 09-07-2015 End: 03-24-2017 Pacer Clinic Gladys Rodriguez PA-C Work Phone: Start: 07-06-2015 End: 08-12-2015 *Hepatic Function Panel Gladys conn PA-C Work Phone: Start: 07-06-2015 End: 08-12-2015 Lipid 1996 panel - Serum or Plasma Gladys Rodriguez PA-C Work Phone: Start: 07-06-2015 End: 08-12-2015 *Hepatic Function Panel Gladys conn PA-C Work Phone: Start: 07-06-2015 End: 08-12-2015 Lipid panel [AGGREGATE] Gladys conn PA-C Work Phone: Start: 06-23-2015 End: 06-23-2015 Follow Up Appt Other Gladys ahuja PA-C Work Phone: Start: 06-23-2015 End: 06-23-2015 Follow Up Appt Other Gladys ahuja PA-C Work Phone: Start: 06-15-2015 End: 06-23-2015 Follow Up Appt 3 months Gladys conn PA-C Work Phone: Start: 06-15-2015 End: 06-23-2015 Pacer Clinic Gladys Rodriguez PA-C Work Phone: Start: 06-15-2015 End: 06-15-2015 Prgrmg eval implantable in prsn dual lead dfb Gladys Rodriguez PA-C Work Phone: Start: 06-15-2015 End: 06-23-2015 Follow Up Appt 3 months Gladys conn PA-C Work Phone: Start: 06-15-2015 End: 06-15-2015 Icd device progr eval, dual Gladys Rodriguez PA-C Work Phone: Start: 06-15-2015 End: 06-23-2015 Pacer Clinic Gladys Rodriguez PA-C Work Phone: Start: 03-03-2015 End: [...] 03-03-2015 Icd device progr eval, dual Ten Tineo MD Start: 03-03-2015 End: 03-03-2015 MMM Ten Tineo MD Start: 03-03-2015 End: 06-23-2015 Pacer Clinic Ten Tineo MD Start: 11-13-2014 End: 06-23-2015 Follow Up Appt 3 months Gladys conn PA-C Work Phone: Start: 11-13-2014 End: 06-23-2015 Pacer Clinic Gladys Rodriguez PA-C Work Phone: Start: 11-13-2014 End: 11-13-2014 Prgrmg eval implantable in prsn dual lead dfb Gladys Rodriguez PA-C Work Phone: Start: 11-13-2014 End: 06-23-2015 Follow Up Appt 3 months Gladys conn PA-C Work Phone: Start: 11-13-2014 End: 06-23-2015 Icd device progr eval, dual Gladys Rodriguez PA-C Work Phone: Start: 11-13-2014 End: 06-23-2015 Pacer Clinic Gladys Rodriguez PA-C Work Phone: Start: 10-13-2014 End: [...] End: 08-15-2014 Follow Up Appt 6 months Gladys conn PA-C Work Phone: Start: 08-15-2014 End: 08-15-2014 Pacer Clinic Ten Tineo MD Start: 08-15-2014 End: 08-15-2014 Prgrmg eval implantable in prsn dual lead dfb Ten Tineo MD Start: 08-15-2014 End: 08-15-2014 STEFFI Rodriguez PA-C Work Phone: Start: 08-15-2014 End: 08-15-2014 Follow Up Appt 3 months Joann Laurent Start: 08-15-2014 End: 08-15-2014 Follow Up Appt 6 months Gladys conn PA-C Work Phone: Start: 08-15-2014 End: 08-15-2014 Icd device progr eval, dual Ten Tineo MD Start: 08-15-2014 End: 08-15-2014 Pacer Clinic Ten Tineo MD Start: 05-01-2014 End: 07-08-2014 Follow Up Appt 3 months Gladys conn PA-C Work Phone: Start: 05-01-2014 End: 07-08-2014 Pacer Clinic Gladys Rodriguez PA-C Work Phone: Start: 05-01-2014 End: 05-01-2014 Prgrmg eval implantable in prsn dual lead dfb Gladys Rodriguez PA-C Work Phone: Start: 05-01-2014 End: 07-08-2014 Follow Up Appt 3 months Gladys conn PA-C Work Phone: Start: 05-01-2014 End: 05-01-2014 Icd device progr eval, dual Gladys Rodriguez PA-C Work Phone: Start: 05-01-2014 End: 07-08-2014 Pacer Clinic Gladys Rodriguez PA-C Work Phone: Start: 04-14-2014 End: [...] 07-08-2014 Icd device progr eval, dual Ten S Noman, MD Start: 01-29-2014 End: 07-08-2014 Pacer Clinic Ten Tineo MD Start: 01-21-2014 End: 01-21-2014 Follow Up Appt 6 months Joann Laurent Start: 01-21-2014 End: 01-21-2014 LEONARDO Tineo MD Start: 01-21-2014 End: 01-21-2014 Follow Up Appt 6 months Joann Laurent Start: 01-21-2014 End: 01-21-2014 LEONARDO Tineo MD Start: 10-28-2013 End: 07-08-2014 Follow Up Appt 3 months Gladys conn PA-C Work Phone: Start: 10-28-2013 End: 07-08-2014 Pacer Clinic Gladys Rodriguez PA-C Work Phone: Start: 10-28-2013 End: 10-28-2013 Prgrmg eval implantable in prsn dual lead dfb Gladys Rodriguez PA-C Work Phone: Start: 10-28-2013 End: 07-08-2014 Follow Up Appt 3 months Gladys conn PA-C Work Phone: Start: 10-28-2013 End: 10-28-2013 Icd device progr eval, dual Gladys Rodriguez PA-C Work Phone: Start: 10-28-2013 End: 07-08-2014 Pacer Clinic Gladys Rodriguez PA-C Work Phone: Start: 07-30-2013 End: 07-08-2014 Follow Up Appt 3 months Randall Sin MD Start: 07-30-2013 End: 07-08-2014 Pacer Clinic Randall Sin MD Start: 07-30-2013 End: 07-30-2013 Prgrmg eval implantable in prsn dual lead dfb Randall Sin MD Start: 07-30-2013 End: 07-08-2014 Follow Up Appt 3 months Randall Sin MD Start: 07-30-2013 End: 07-30-2013 Icd device progr eval, dual Randall Sin MD Start: 07-30-2013 End: 07-08-2014 Pacer Clinic Randall Sin MD Start: 05-17-2013 End: 07-08-2014 *BMP Gladys Rodriguez PA-C Work Phone: Start: 05-17-2013 End: 07-08-2014 *CBC with Differential Gladys forrester PA-C Work Phone: Start: 05-17-2013 End: 07-08-2014 24 hour holter monitor Gladys forrester PA-C Work Phone: Start: 05-17-2013 End: 05-17-2013 EXHAUSTER ENGINEER Gladys Rodriguez PA-C Work Phone: Start: 05-17-2013 End: 07-08-2014 Device Interrogation Gladys ahuja PA-C Work Phone: Start: 05-17-2013 End: 07-08-2014 Follow Up Appt 3 months Joann Laurent Start: 05-17-2013 End: 05-17-2013 Follow Up Appt 6 months Gladys conn PA-C Work Phone: Start: 05-17-2013 End: 07-08-2014 Pacer Clinic Ten Tineo MD Start: 05-17-2013 End: 05-17-2013 Prgrmg eval implantable in prsn dual lead dfb Ten Tineo MD Start: 05-17-2013 End: 07-08-2014 Thyrotropin [Units/volume] in Serum or Plasma Gladys Rodriguez PA-C Work Phone: Start: 05-17-2013 End: 07-08-2014 *BMP Gladys Rodriguez PA-C Work Phone: Start: 05-17-2013 End: 07-08-2014 *CBC with Differential Gladys forrester PA-C Work Phone: Start: 05-17-2013 End: 07-08-2014 24 hour holter monitor Gladys forrester PA-C Work Phone: Start: 05-17-2013 End: 05-17-2013 EXHAUSTER ENGINEER Gladys Rodriguez PA-C Work Phone: Start: 05-17-2013 End: 07-08-2014 Device Interrogation Gladys ahuja PA-C Work Phone: Start: 05-17-2013 End: 07-08-2014 Follow Up Appt 3 months Joann Laurent Start: 05-17-2013 End: 05-17-2013 Follow Up Appt 6 months Gladys conn PA-C Work Phone: Start: 05-17-2013 End: 05-17-2013 Icd device progr eval, dual Ten Tineo MD Start: 05-17-2013 End: 07-08-2014 Pacer Clinic Ten Tineo MD Start: 05-17-2013 End: 07-08-2014 Thyroid stimulating hormone (TSH) Gladys Rodriguez PA-C Work Phone: Start: 04-29-2013 End: 05-09-2013 Follow Up Appt 3 months Joann Laurent Start: 04-29-2013 End: 05-09-2013 Pacer Clinic Ten Tineo MD Start: 04-29-2013 End: 04-29-2013 Prgrmg eval implantable in prsn dual lead umairb Ten Tineo MD Start: 04-29-2013 End: 05-09-2013 Follow Up Appt 3 months Joann Laurent Start: 04-29-2013 End: 04-29-2013 Icd device progr eval, dual Ten Tineo MD Start: 04-29-2013 End: 05-09-2013 Pacer Clinic Ten Tineo MD Start: 01-23-2013 End: 04-24-2013 Follow Up Appt 3 months Joann Laurent Start: 01-23-2013 End: 04-24-2013 Pacer Clinic Ten Tineo MD Start: 01-23-2013 End: 01-23-2013 Prgrmg eval implantable in prsn dual lead dfb Ten Tineo MD Start: 01-23-2013 End: 04-24-2013 Follow Up Appt 3 months Joann Laurent Start: 01-23-2013 End: 04-24-2013 Icd device progr eval, dual Ten Tineo MD Start: 01-23-2013 End: 04-24-2013 Pacer Clinic Ten Tineo MD Start: 10-30-2012 End: 04-24-2013 *Hepatic Function Panel Joann Laurent Start: 10-30-2012 End: 10-30-2012 Follow Up Appt 6 months Joann Laruent Start: 10-30-2012 End: 04-24-2013 Lipid 1996 panel - Serum or Plasma Ten Tineo MD Start: 10-30-2012 End: 10-30-2012 LEONARDO Tineo MD Start: 10-30-2012 End: 04-24-2013 *Hepatic Function Panel Joann Laurent Start: 10-30-2012 End: 10-30-2012 Follow Up Appt 6 months Joann Laurent Start: 10-30-2012 End: 04-24-2013 Lipid panel [AGGREGATE] Joann Laurent Start: 10-30-2012 End: 10-30-2012 LEONARDO Tineo MD Start: 10-25-2012 End: 10-30-2012 Follow Up Appt 3 months Joann Laurent Start: 10-25-2012 End: 10-30-2012 Pacer Clinic Ten Tineo MD Start: 10-25-2012 End: 10-25-2012 Prgrmg eval implantable in prsn dual lead dfb Ten Tineo MD Start: 10-25-2012 End: 10-30-2012 Follow Up Appt 3 months Joann Laurent Start: 10-25-2012 End: 10-25-2012 Icd device progr eval, dual Ten Tineo MD Start: 10-25-2012 End: 10-30-2012 Pacer Clinic [...] Up Appt 6 months Joann Laurent Start: 11-24-2010 History of coronary artery bypass grafting H/O coronary artery bypass surgery Gladys QUINTEROS Comment on above: CABG x 3 MENDOZA-LAD,SV G-D1, 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/2010 Plan of Treatment Date Care Activity Detail Author Start: 03-27-2035 Urine microalbumin profile DTaP,Tdap,Td Vaccine (3 - Td or Tdap) [facility] Start: 03-19-2028 Urine microalbumin profile [facility] Start: 12-07-2027 Diabetes Screening Diabetes Screenin g [facility] Start: 06-10-2027 Diabetes Screening Diabetes Screenin g [facility] Start: 05-15-2027 Diabetes Screening Diabetes Screenin g [facility] Start: 12-03-2026 Diabetes Screening Diabetes Screenin g [facility] Start: 12-06-2025 Anxiety Screening Anxiety Screening [facility] Start: 12-06-2025 Depression Screening Depression Scre ening [facility] Start: 12-06-2025 Hepatitis B surface antibody level LDL Cholesterol [facility] Start: 06-09-2025 End: 06-09-2025 Patient encounter procedure 06/09/2025 8:40 AM EDT Office Visit Family [facility] Nicole [address] [place] [id number] Libertad Julio MD [address] [place] [id number] 6 month follow up [facility] Comment on above: 6 month follow up Start: 06-03-2025 End: 06-03-2025 Patient encounter procedure -[facility] Work Phone: Start: 05-15-2025 Covid-19 Vaccine ( season) Covid-19 Vaccine ( season) [facility] Comment on above: Postponed from 04/14 (Declined at this time) Start: 04-14-2025 Influenza vaccination Influenza Vacc ine (#1) [facility] Start: 04-11-2025 DIABETES SCREEN DIABETES SCREEN [facility] Start: 04-11-2025 Diabetes Screening Diabetes Screenin g [facility] Start: 03-27-[address] [facility] Start: 02-10-2025 Influenza vaccination Influenza Vacc ine (#1) [facility] Comment on above: Postponed from 04/14 (Declined at this time) Start: 01-18-2025 DIABETES SCREEN DIABETES SCREEN [facility] Start: 12-03-2024 Hepatitis B surface antibody level LDL Cholesterol [facility] Start: 11-13-2024 End: 11-13-2024 Patient encounter procedure 11/13/2024 8:40 AM EDT Office Visit [facility] [place] [address] [place] [address] Libertad Julio MD [address] [place] [address] 6 month follow up [facility] [place] Comment on above: 6 month follow up Start: 10-11-2024 DIABETES SCREEN DIABETES SCREEN [facility] Start: 09-10-2024 End: 07-10-2025 CT Chest WO contrast [facility] Work Phone: Comment on above: Expected: 09/10/2024 , Expires: 07/10/2025 Start: 09-10-2024 End: 09-10-2024 Patient encounter procedure 09/10/2024 8:00 AM EST Appointment [facility] [address] [place] [id number] Lung nodules [R91.8] [facility] Comment on above: Lung nodules [R91.8] Start: 08-14-2024 Advance Directive Discussion Advance Directive Discussion [facility] Start: 05-15-2024 End: 08-14-2024 CBC W Auto Differential panel - Blood [facility] Comment on above: Expected: 05/15/2024 , Expires: 08/14/2024 Start: 05-15-2024 End: 08-14-2024 Comprehensive metabolic 2000 panel - Serum or Plasma [facility] Work Phone: Comment on above: Expected: 05/15/2024 , Expires: 08/14/2024 Start: 05-15-2024 End: 05-15-2024 Patient encounter procedure 05/15/2024 8:20 AM EDT Office Visit [facility] [address] [facility] [place] [id number] PodRomina ramirez APRN.MEDICAL REFERRAL COORDINATOR [address] [place] [address] 6 month follow up [facility] [place] Comment on above: 6 month follow up Start: 04-14-2024 Covid-19 Vaccine ( season) Covid-19 Vaccine ( season) [facility] Start: 04-14-2024 [facility] Start: 12-11-2023 [facility] Start: 12-04-2023 End: 03-04-2024 Comprehensive metabolic 2000 panel - Serum or Plasma COMP METABOLIC PANEL Lab Routine Stage 3b chronic kidney disease (HCC) Expected: 12/04/2023, Expires: 03/04/2024 [facility] Work Phone: Comment on above: Expected: 12/04/2023 , Expires: 03/04/2024 Start: 11-14-2023 End: 02-13-2024 Lipid 1996 panel - Serum or Plasma LIPID PANEL BASIC Lab Routine Hyperlipidemia, unspecified hyperlipidemia type Expected: 11/14/2023, Expires: 02/13/2024 [facility] Work Phone: Comment on above: Expected: 11/14/2023 , Expires: 02/13/2024 Start: 10-17-2023 Patient discharge [facility] Start: 08-14-2023 Advance Directive Discussion Advance Directive Discussion [facility] Start: 08-14-2023 Behavioral Health Screening Behavioral Health Screening [facility] Start: 08-14-2023 Depression Assessment Depression Ass essment [facility] Start: 04-14-2023 Covid-19 Vaccine ( season) Covid-19 Vaccine ( season) [facility] Start: 04-14-2023 Influenza vaccination Influenza Vacc ine (#1) [facility] Start: 04-11-2023 COVID-19 VACCINE (#1) COVID-19 VACCI NE (#1) [facility] Comment on above: Postponed from 08/14 (Declined at this time) Start: 10-11-2022 Hepatitis B surface antibody level LDL CHOLESTEROL [facility] Start: 08-14-2022 ADVANCE DIRECTIVE DISCUSSION ADVANCE DIRECTIVE DISCUSSION [facility] Start: 08-14-2022 DEPRESSION ASSESSMENT DEPRESSION ASS ESSMENT [facility] Start: 06-09-2022 Plain x-ray of pelvi s and lower extremity HIP, UNI W/ Pelvis 2-3 Views [facility] Work Phone: Start: 06-09-2022 XR Pelvis and Hip Views [facility] Work Phone: Start: 04-14-2022 Influenza vaccination [facility] Start: 04-11-2022 End: 06-11-2022 CBC panel - Blood by Automated count [facility] Work Phone: Comment on above: Expected: 04/11/2022 , Expires: 06/11/2022 Start: 04-11-2022 End: 06-11-2022 Comprehensive metabolic 2000 panel - Serum or Plasma [facility] Work Phone: Comment on above: Expected: 04/11/2022 , Expires: 06/11/2022 Start: 04-09-2022 COVID-19 VACCINE (#1) COVID-19 VACCI NE (#1) [facility] Comment on above: Postponed from 02/11 (Declined at this time) Postponed from 08/14 (Declined at this time) Start: 01-18-2022 End: 03-20-2022 aPTT in Platelet poor plasma by Coagulation assay [facility] Work Phone: Comment on above: Expected: 01/18/2022 , Expires: 03/20/2022 Start: 01-18-2022 End: 03-20-2022 CBC W Auto Differential panel - Blood [facility] Work Phone: Comment on above: Expected: 01/18/2022 , Expires: 03/20/2022 Start: 01-18-2022 End: 03-20-2022 PT panel - Platelet poor plasma by Coagulation assay [facility] Work Phone: Comment on above: Expected: 01/18/2022 , Expires: 03/20/2022 Start: 08-14-2021 ADVANCE DIRECTIVE DISCUSSION ADVANCE DIRECTIVE DISCUSSION [facility] Start: 10-18-2017 End: 10-18-2017 Appointment Appointment [facility] Work Phone: Start: 10-17-2017 End: 10-17-2017 Appointment Appointment [facility] Work Phone: Start: 10-03-2017 End: 10-03-2017 Appointment Appointment [facility] Work Phone: Start: 07-13-2017 End: 07-13-2017 Follow Up Appt 3 months Follow Up Appt 3 months [facility] Work Phone: Start: 07-13-2017 End: 07-13-2017 Pacer Clinic [facility]er [facility] Work Phone: Start: 07-13-2017 End: 07-13-2017 Appointment Appointment [facility] Work Phone: Start: 05-01-2017 End: 05-01-2017 Appointment Appointment [facility] Work Phone: Start: 05-01-2017 End: 05-01-2017 Appointment Appointment [facility] Work Phone: Start: 04-12-2017 End: 04-12-2017 Follow Up Appt 3 months Follow Up Appt 3 months [facility] Work Phone: Start: 04-12-2017 End: 04-12-2017 Pacer Clinic Pacer Clinic [facility] Work Phone: Start: 04-12-2017 End: 04-12-2017 Appointment Appointment [facility] Work Phone: Start: 04-12-2017 End: 04-12-2017 Appointment Appointment [facility] Work Phone: Start: 04-12-2017 End: 04-12-2017 Follow Up Appt 3 months Follow Up Appt 3 months [facility] Work Phone: Start: 04-12-2017 End: 04-12-2017 Pacer Clinic [facility] Clinic [facility] Work Phone: Start: 03-24-2017 End: 03-24-2017 [facility] Work Phone: Start: 03-24-2017 End: 03-24-2017 Follow Up Appt 6 months Follow Up Appt 6 months [facility] Work Phone: Start: 03-24-2017 End: 03-24-2017 Appointment Appointment [facility] Work Phone: Start: 03-24-2017 End: 03-24-2017 EXHAUSTER ENGINEER EXHAUSTER ENGINEER [facility] Work Phone: Start: 03-24-2017 End: 03-24-2017 Follow Up Appt 6 months Follow Up Appt 6 months [facility] Work Phone: Start: 01-04-2017 End: 03-24-2017 Follow Up Appt 3 months Follow Up Appt 3 months [facility] Work Phone: Start: 01-04-2017 End: 03-24-2017 Pacer Clinic [facility] Work Phone: Start: 01-04-2017 End: 03-24-2017 Follow Up Appt 3 months Follow Up Appt 3 months [facility] Work Phone: Start: 01-04-2017 End: 03-24-2017 Pacer Clinic [facility] Work Phone: Start: 10-28-2016 End: 10-28-2016 Follow Up Appt 6 months Follow Up Appt 6 months [facility] Work Phone: Start: 10-28-2016 End: 10-28-2016 MMM MMM [facility] Work Phone: Start: 10-28-2016 End: 10-28-2016 Follow Up Appt 6 months Follow Up Appt 6 months [facility] Work Phone: Start: 10-28-2016 End: 10-28-2016 MMM MMM [facility] Work Phone: Start: 09-22-2016 End: 02-16-2017 *BMP *BMP [facility] Work Phone: Start: 09-22-2016 End: 02-16-2017 *CBC with Differential *CBC with Differential [facility] Work Phone: Start: 09-22-2016 End: 03-24-2017 Follow Up Appt 3 months Follow Up Appt 3 months [facility] Work Phone: Start: 09-22-2016 End: 09-22-2016 Follow Up Appt 6 months Follow Up Appt 6 months [facility] Work Phone: Start: 09-22-2016 End: 02-16-2017 Magnesium *Magnesium [facility] Work Phone: Start: 09-22-2016 End: 09-22-2016 MMM MMM [facility] Work Phone: Start: 09-22-2016 End: 03-24-2017 Pacer Clinic Pac[facility] Clinic [facility] Work Phone: Start: 09-22-2016 End: 02-16-2017 *BMP *BMP [facility] Work Phone: Start: 09-22-2016 End: 02-16-2017 *CBC with Differential *CBC with Differential [facility] Work Phone: Start: 09-22-2016 End: 03-24-2017 Follow Up Appt 3 months Follow Up Appt 3 months [facility] Work Phone: Start: 09-22-2016 End: 09-22-2016 Follow Up Appt 6 months Follow Up Appt 6 months [facility] Work Phone: Start: 09-22-2016 End: 02-16-2017 Magnesium *Magnesium [facility] Work Phone: Start: 09-22-2016 End: 09-22-2016 MMM MMM [facility] Work Phone: Start: 09-22-2016 End: 03-24-2017 Pacer Clinic [facility] Clinic [facility] Work Phone: Start: 08-12-2016 End: 08-12-2015 *Hepatic Function Panel *Hepatic Function Panel [facility] Work Phone: Start: 08-12-2016 End: 08-12-2015 Lipid panel [AGGREGATE] *Lipid Profile CC PCP [facility] Work Phone: Start: 08-12-2016 End: 08-12-2015 *Hepatic Function Panel *Hepatic Function Panel [facility] Work Phone: Start: 08-12-2016 End: 08-12-2015 Lipid panel [AGGREGATE] *Lipid Profile CC PCP [facility] Work Phone: Start: 07-04-2016 End: 03-24-2017 Follow Up Appt 3 months Follow Up Appt 3 months [facility] Work Phone: Start: 07-04-2016 End: 03-24-2017 Pacer Clinic Pacer [facility] Work Phone: Start: 07-04-2016 End: 03-24-2017 Follow Up Appt 3 months Follow Up Appt 3 months [facility] Work Phone: Start: 07-04-2016 End: 03-24-2017 Pacer [facility] Work Phone: Start: 03-25-2016 End: 03-24-2017 Follow Up Appt 3 months Follow Up Appt 3 months [facility] Work Phone: Start: 03-25-2016 End: 03-25-2016 Follow Up Appt 6 months Follow Up Appt 6 months [facility] Work Phone: Start: 03-25-2016 End: 03-25-2016 MMM MMM [facility] Work Phone: Start: 03-25-2016 End: 03-24-2017 [facility] [facility] Work Phone: Start: 03-25-2016 End: 03-24-2017 Follow Up Appt 3 months Follow Up Appt 3 months [facility] Work Phone: Start: 03-25-2016 End: 03-25-2016 Follow Up Appt 6 months Follow Up Appt 6 months [facility] Work Phone: Start: 03-25-2016 End: 03-25-2016 MMM MMM [facility] Work Phone: Start: 03-25-2016 End: 03-24-2017 [facility] Work Phone: Start: 12-09-2015 End: 03-24-2017 Follow Up Appt 3 months Follow Up Appt 3 months [facility] Work Phone: Start: 12-09-2015 End: 03-24-2017 Pacer Clinic [facility] Work Phone: Start: 12-09-2015 End: 03-24-2017 Follow Up Appt 3 months Follow Up Appt 3 months [facility] Work Phone: Start: 12-09-2015 End: 03-24-2017 Pacer Clinic [facility] Work Phone: Start: 09-07-2015 End: 09-07-2015 [facility] EXHAUSTER ENGINEER [facility] Work Phone: Start: 09-07-2015 End: 03-24-2017 Follow Up Appt 3 months Follow Up Appt 3 months [facility] Work Phone: Start: 09-07-2015 End: 09-07-2015 Follow Up Appt 6 months Follow Up Appt 6 months [facility] Work Phone: Start: 09-07-2015 End: 03-24-2017 Pacer Clinic [facility] Work Phone: Start: 09-07-2015 End: 09-07-2015 [facility] EXHAUSTER ENGINEER [facility] Work Phone: Start: 09-07-2015 End: 03-24-2017 Follow Up Appt 3 months Follow Up Appt 3 months [facility] Work Phone: Start: 09-07-2015 End: 09-07-2015 Follow Up Appt 6 months Follow Up Appt 6 months [facility] Work Phone: Start: 09-07-2015 End: 03-24-2017 Pacer Clinic [facility] Work Phone: Start: 07-06-2015 End: 08-12-2015 *Hepatic Function Panel *Hepatic Function Panel [facility] Work Phone: Start: 07-06-2015 End: 08-12-2015 Lipid panel [AGGREGATE] *Lipid Profile CC PCP [facility] Work Phone: Start: 07-06-2015 End: 08-12-2015 *Hepatic Function Panel *Hepatic Function Panel [facility] Work Phone: Start: 07-06-2015 End: 08-12-2015 Lipid panel [AGGREGATE] *Lipid Profile CC PCP [facility] Work Phone: Start: 06-23-2015 End: 06-23-2015 Follow Up Appt Other Follow Up Appt Other [facility] Work Phone: Start: 06-23-2015 End: 06-23-2015 Follow Up Appt Other Follow Up Appt Other [facility] Work Phone: Start: 06-15-2015 End: 06-23-2015 Follow Up Appt 3 months Follow Up Appt 3 months [facility] Work Phone: Start: 06-15-2015 End: 06-23-2015 Pacer Clinic [facility] Work Phone: Start: 06-15-2015 End: 06-23-2015 Follow Up Appt 3 months Follow Up Appt 3 months [facility] Work Phone: Start: 06-15-2015 End: 06-23-2015 Pac[facility] Clinic [facility] Work Phone: Start: 03-03-2015 End: 06-23-2015 Follow Up Appt 3 months Follow Up Appt 3 months [facility] Work Phone: Start: 03-03-2015 End: 03-03-2015 Follow Up Appt 6 months Follow Up Appt 6 months [facility] Work Phone: Start: 03-03-2015 End: 03-03-2015 MMM MMM [facility] Work Phone: Start: 03-03-2015 End: 06-23-2015 Pacer Clinic [facility] Work Phone: Start: 03-03-2015 End: 06-23-2015 Follow Up Appt 3 months Follow Up Appt 3 months [facility] Work Phone: Start: 03-03-2015 End: 03-03-2015 Follow Up Appt 6 months Follow Up Appt 6 months [facility] Work Phone: Start: 03-03-2015 End: 03-03-2015 MMM MMM [facility] Work Phone: Start: 03-03-2015 End: 06-23-2015 Pacer Clinic [facility] Work Phone: Start: 11-13-2014 End: 06-23-2015 Follow Up Appt 3 months Follow Up Appt 3 months [facility] Work Phone: Start: 11-13-2014 End: 06-23-2015 Pacer Clinic [facility] Work Phone: Start: 11-13-2014 End: 06-23-2015 Follow Up Appt 3 months Follow Up Appt 3 months [facility] Work Phone: Start: 11-13-2014 End: 06-23-2015 Pacer Clinic [facility] Work Phone: Start: 10-13-2014 End: 10-16-2014 *Hepatic Function Panel *Hepatic Function Panel [facility] Work Phone: Start: 10-13-2014 End: 10-16-2014 Lipid panel [AGGREGATE] *Lipid Profile CC PCP [facility] Work Phone: Start: 10-13-2014 End: 10-16-2014 *Hepatic Function Panel *Hepatic Function Panel [facility] Work Phone: Start: 10-13-2014 End: 10-16-2014 Lipid panel [AGGREGATE] *Lipid Profile CC PCP [facility] Work Phone: Start: 08-15-2014 End: 08-15-2014 EXHAUSTER ENGINEER EXHAUSTER ENGINEER [facility] Work Phone: Start: 08-15-2014 End: 08-15-2014 Follow Up Appt 3 months Follow Up Appt 3 months [facility] Work Phone: Start: 08-15-2014 End: 08-15-2014 Follow Up Appt 6 months Follow Up Appt 6 months [facility] Work Phone: Start: 08-15-2014 End: 08-15-2014 Pacer Clinic [facility] Work Phone: Start: 08-15-2014 End: 08-15-2014 EXHAUSTER ENGINEER EXHAUSTER ENGINEER [facility] Work Phone: Start: 08-15-2014 End: 08-15-2014 Follow Up Appt 3 months Follow Up Appt 3 months [facility] Work Phone: Start: 08-15-2014 End: 08-15-2014 Follow Up Appt 6 months Follow Up Appt 6 months [facility] Work Phone: Start: 08-15-2014 End: 08-15-2014 Pacer Clinic [facility] Work Phone: Start: 05-01-2014 End: 07-08-2014 Follow Up Appt 3 months Follow Up Appt 3 months [facility] Work Phone: Start: 05-01-2014 End: 07-08-2014 Pacer Clinic [facility] Work Phone: Start: 05-01-2014 End: 07-08-2014 Follow Up Appt 3 months Follow Up Appt 3 months [facility] Work Phone: Start: 05-01-2014 End: 07-08-2014 Pacer Clinic [facility] Work Phone: Start: 04-14-2014 End: 07-08-2014 *Hepatic Function Panel *Hepatic Function Panel [facility] Work Phone: Start: 04-14-2014 End: 07-08-2014 Lipid panel [AGGREGATE] *Lipid Profile CC PCP [facility] Work Phone: Start: 04-14-2014 End: 07-08-2014 *Hepatic Function Panel *Hepatic Function Panel [facility] Work Phone: Start: 04-14-2014 End: 07-08-2014 Lipid panel [AGGREGATE] *Lipid Profile CC PCP [facility] Work Phone: Start: 01-29-2014 End: 07-08-2014 Follow Up Appt 3 months Follow Up Appt 3 months [facility] Work Phone: Start: 01-29-2014 End: 07-08-2014 Pacer Clinic [facility] Work Phone: Start: 01-29-2014 End: 07-08-2014 Follow Up Appt 3 months Follow Up Appt 3 months [facility] Work Phone: Start: 01-29-2014 End: 07-08-2014 Pacer Clinic [facility] Work Phone: Start: 01-21-2014 End: 01-21-2014 Follow Up Appt 6 months Follow Up Appt 6 months [facility] Work Phone: Start: 01-21-2014 End: 01-21-2014 MMM MMM [facility] Work Phone: Start: 01-21-2014 End: 01-21-2014 Follow Up Appt 6 months Follow Up Appt 6 months [facility] Work Phone: Start: 01-21-2014 End: 01-21-2014 MMM MMM [facility] Work Phone: Start: 10-28-2013 End: 07-08-2014 Follow Up Appt 3 months Follow Up Appt 3 months [facility] Work Phone: Start: 10-28-2013 End: 07-08-2014 Pacer Clinic [facility] Work Phone: Start: 10-28-2013 End: 07-08-2014 Follow Up Appt 3 months Follow Up Appt 3 months [facility] Work Phone: Start: 10-28-2013 End: 07-08-2014 Pacer Clinic [facility] Work Phone: Start: 07-30-2013 End: 07-08-2014 Follow Up Appt 3 months Follow Up Appt 3 months [facility] Work Phone: Start: 07-30-2013 End: 07-08-2014 Pacer Clinic [facility] Work Phone: Start: 07-30-2013 End: 07-08-2014 Follow Up Appt 3 months Follow Up Appt 3 months [facility] Work Phone: Start: 07-30-2013 End: 07-08-2014 Pacer Clinic [facility] Work Phone: Start: 05-17-2013 End: 07-08-2014 *BMP *BMP [facility] Work Phone: Start: 05-17-2013 End: 07-08-2014 *CBC with Differential *CBC with Differential [facility] Work Phone: Start: 05-17-2013 End: 05-17-2013 24 hour holter monitor 24 hour holter monitor [facility] Work Phone: Start: 05-17-2013 End: 05-17-2013 EXHAUSTER ENGINEER EXHAUSTER ENGINEER [facility] Work Phone: Start: 05-17-2013 End: 07-08-2014 Device Interrogation Device Interrogation [facility] Work Phone: Start: 05-17-2013 End: 07-08-2014 Follow Up Appt 3 months Follow Up Appt 3 months [facility] Work Phone: Start: 05-17-2013 End: 05-17-2013 Follow Up Appt 6 months Follow Up Appt 6 months [facility] Work Phone: Start: 05-17-2013 End: 07-08-2014 Pacer Clinic Pac[facility] Clinic [facility] Work Phone: Start: 05-17-2013 End: 07-08-2014 Thyroid stimulating hormone (TSH) *TSH [facility] Work Phone: Start: 05-17-2013 End: 07-08-2014 *BMP *BMP [facility] Work Phone: Start: 05-17-2013 End: 07-08-2014 *CBC with Differential *CBC with Differential [facility] Work Phone: Start: 05-17-2013 End: 05-17-2013 24 hour holter monitor 24 hour holter monitor [facility] Work Phone: Start: 05-17-2013 End: 05-17-2013 EXHAUSTER ENGINEER EXHAUSTER ENGINEER [facility] Work Phone: Start: 05-17-2013 End: 07-08-2014 Device Interrogation Device Interrogation [facility] Work Phone: Start: 05-17-2013 End: 07-08-2014 Follow Up Appt 3 months Follow Up Appt 3 months [facility] Work Phone: Start: 05-17-2013 End: 05-17-2013 Follow Up Appt 6 months Follow Up Appt 6 months [facility] Work Phone: Start: 05-17-2013 End: 07-08-2014 Pacer Clinic [facility] Work Phone: Start: 05-17-2013 End: 07-08-2014 Thyroid stimulating hormone (TSH) *TSH [facility] Work Phone: Start: 04-29-2013 End: 05-09-2013 Follow Up Appt 3 months Follow Up Appt 3 months [facility] Work Phone: Start: 04-29-2013 End: 05-09-2013 Pacer Clinic [facility] Clinic [facility] Work Phone: Start: 04-29-2013 End: 05-09-2013 Follow Up Appt 3 months Follow Up Appt 3 months [facility] Work Phone: Start: 04-29-2013 End: 05-09-2013 Pacer Clinic [facility] Work Phone: Start: 01-23-2013 End: 04-24-2013 Follow Up Appt 3 months Follow Up Appt 3 months [facility] Work Phone: Start: 01-23-2013 End: 04-24-2013 Pacer Clinic [facility] Work Phone: Start: 01-23-2013 End: 04-24-2013 Follow Up Appt 3 months Follow Up Appt 3 months [facility] Work Phone: Start: 01-23-2013 End: 04-24-2013 Pacer Clinic [facility] Work Phone: Start: 10-30-2012 End: 04-24-2013 *Hepatic Function Panel *Hepatic Function Panel [facility] Work Phone: Start: 10-30-2012 End: 10-30-2012 Follow Up Appt 6 months Follow Up Appt 6 months [facility] Work Phone: Start: 10-30-2012 End: 04-24-2013 Lipid panel [AGGREGATE] *Lipid Profile [facility] Work Phone: Start: 10-30-2012 End: 10-30-2012 MMM MMM [facility] Work Phone: Start: 10-30-2012 End: 04-24-2013 *Hepatic Function Panel *Hepatic Function Panel [facility] Work Phone: Start: 10-30-2012 End: 10-30-2012 Follow Up Appt 6 months Follow Up Appt 6 months [facility] Work Phone: Start: 10-30-2012 End: 04-24-2013 Lipid panel [AGGREGATE] *Lipid Profile [facility] Work Phone: Start: 10-30-2012 End: 10-30-2012 MMM MMM [facility] Work Phone: Start: 10-25-2012 End: 10-30-2012 Follow Up Appt 3 months Follow Up Appt 3 months [facility] Work Phone: Start: 10-25-2012 End: 10-30-2012 Pacer Clinic Pacer Clinic [facility] Work Phone: Start: 10-25-2012 End: 10-30-2012 Follow Up Appt 3 months Follow Up Appt 3 months [facility] Work Phone: Start: 10-25-2012 End: 10-30-2012 Pacer Clinic [facility] Work Phone: Start: 04-11-2012 End: 10-30-2012 *Hepatic Function Panel *Hepatic Function Panel [facility] Work Phone: Start: 04-11-2012 End: 04-11-2012 Carotid duplex Carotid duplex [facility] Work Phone: Start: 04-11-2012 End: 10-30-2012 Follow Up Appt 6 months Follow Up Appt 6 months [facility] Work Phone: Start: 04-11-2012 End: 10-30-2012 Lipid panel [AGGREGATE] *Lipid Profile [facility] Work Phone: Start: 04-11-2012 End: 04-11-2012 Us abdominal real time w/image limited US Abdominal (aneurysm screening) [facility] Work Phone: Start: 04-11-2012 End: 10-30-2012 *Hepatic Function Panel *Hepatic Function Panel [facility] Work Phone: Start: 04-11-2012 End: 04-11-2012 Carotid duplex Carotid duplex [facility] Work Phone: Start: 04-11-2012 End: 04-11-2012 Echo exam of abdomen US Abdominal (aneurysm screening) [facility] Work Phone: Start: 04-11-2012 End: 10-30-2012 Follow Up Appt 6 months Follow Up Appt 6 months [facility] Work Phone: Start: 04-11-2012 End: 10-30-2012 Lipid panel [AGGREGATE] *Lipid Profile [facility] Work Phone: Start: 08-04-2011 End: 08-04-2011 Follow Up Appt 6 months Follow Up Appt 6 months [facility] Work Phone: Start: 08-04-2011 End: 08-04-2011 Follow Up Appt 6 months Follow Up Appt 6 months [facility] Work Phone: Start: 02-11-2011 RSV Vaccine (1 - 1-d ose 75+ series) RSV Vaccine (1 - 1-dose 75+ series) [facility] Start: 1996 RSV Vaccine (1 - 1-d ose 60+ series) RSV Vaccine (1 - 1-dose 60+ series) [facility] Start: 02-11-1954 Anxiety Screening Anxiety Screening [facility] Start: 02-11-1954 Depression Screening Depression Scre ening [facility] Start: 1936 Covid-19 Vaccine (#1) Covid-19 Vacci ne (#1) [facility] Blood chemistry [facility] ECG COMPLETE [facility] Comment on above: Ordered: 05/15/2024 Patient Education [facility] Work Phone: Patient referral [facility] Work Phone: Replacement of electronic heart device, pulse generator [facility] Immunizations Immunization Date Immunization Notes Care Provider Archana lopez 03-27-2025 tetanus toxoid, redu opal diphtheria toxoid, and acellular pertussis vaccine, adsorbed Dr. Aroldo Julio MD Work Phone: [facility] 06-18-2020 zoster vaccine recombinant Romina Riveralogmonique HYDROTREATER OPERATOR.MEDICAL REFERRAL COORDINATOR Work Phone: [facility] 05-14-2020 influenza virus vaccine, unspecified formulation Libertad Julio MD Work Phone: [facility] 04-14-2020 zoster vaccine recombinant Romina Riveralogmonique HYDROTREATER OPERATOR.MEDICAL REFERRAL COORDINATOR Work Phone: [facility] 04-02-2020 pneumococcal polysaccharide vaccine, 23 valent Romina Podlogar HYDROTREATER OPERATOR.MEDICAL REFERRAL COORDINATOR Work Phone: [facility] 08-20-2019 influenza, high dose seasonal, preservative-free Romina Podlogar HYDROTREATER OPERATOR.MEDICAL REFERRAL COORDINATOR Work Phone: [facility] 07-25-2018 influenza, high dose seasonal, preservative-free Romina Podlogar HYDROTREATER OPERATOR.MEDICAL REFERRAL COORDINATOR Work Phone: [facility] Work Phone: 07-20-2017 zoster vaccine, live Romina P odlogar HYDROTREATER OPERATOR.MEDICAL REFERRAL COORDINATOR Work Phone: [facility] Work Phone: 05-31-2017 influenza, high dose seasonal, preservative-free Romina Podlogar HYDROTREATER OPERATOR.MEDICAL REFERRAL COORDINATOR Work Phone: [facility] 05-31-2017 pneumococcal conjuga te vaccine, 13 valent Romina Podlogar HYDROTREATER OPERATOR.MEDICAL REFERRAL COORDINATOR Work Phone: [facility] Payers Date Payer Category Payer Self-pay [id number] 2021 Medicare HUMANA MEDICARE HUMANA MEDICARE PPO [id number] 2021-Present [phone] [id number] [place] [address] PPO [id number] 2021 Medicare HUMANA MEDICARE HUMANA MEDICARE PPO [id number] 2021-Present [phone] [address] [place] [address] PPO [id number] 2021 Medicare (Managed Care) HUMANA M EDICARE [id number] 2012 Medicare [id number] Unknown [id number] Unknown [id number] Unknown [id number]. [id number] Unknown [id number] Unknown [id number]. 2.462 Unknown [id number]. [id number] Unknown [id number]. [id number] Unknown [id number] Unknown [id number] [id number] Unknown [id number]. 2.462 Unknown [id number]. 2.462 Unknown [id number]. [id number] Unknown [id number]. [id number] Unknown [id number] [id number] Unknown [id number]. [id number] Unknown [id number]. [id number] Unknown [id number] [id number] Unknown [id number]. [id number] Unknown [id number] Social History Date Type Detail Facility Start: 04-11-2022 End: 03-27-2025 Tobacco smoking status NHIS Never smoked tobacco [facility] Start: 01-18-2022 End: 06-10-2024 Alcohol intake Current non-drinker of alcohol (finding) [facility] Start: 12-01-2016 End: 04-11-2022 Tobacco Comment Father smoked occasional cigar. 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 [facility] Start: 1935 Sex Assigned At Not on file [facility] Start: 12-20-2021 End: 04-11-2022 Exposure to SARS-CoV-2 (event) Not sure [facility] Start: 12-01-2016 End: 04-11-2022 Tobacco use and exposure Smokeless tobacco non-user [facility] Start: 06-09-2022 End: 12-11-2023 Tobacco smoking status MOIS Unknown if ever smoked [facility] Start: 1935 Sex Assigned At Male [facility] Start: 01-31-2018 None [facility] Start: 01-31-2018 Spouse/ Signif icant Other [facility] Start: 02-01-2018 Non-smoker [facility] Start: 09-12-2022 End: 11-14-2023 History of Social function [facility] Start: 09-12-2022 End: 11-14-2023 Tobacco use panel [facility] Start: 07-15-2012 Adult Depression Screening Assessment 0 [facility] Medical Equipment Procedure Code Equipment Code Equipment Origin al Text Equipment Identifier Dates Colectomy, sigmoid RELOAD, SR75 SELECTABLE FDA Start: 06-25-2021 Colectomy, sigmoid RELOAD, SR75 SELECTABLE FDA Start: 06-25-2021 Colectomy, sigmoid RELOAD,LD X THICK COVID FDA Start: 06-25-2021 Colectomy, sigmoid RELOAD,LD X THICK COVID FDA Start: 06-25-2021 Colectomy, sigmoid RELOAD,LD X THICK COVID FDA Start: 06-25-2021 Colectomy, sigmoid STAPLER,INTRA CDH33 ETHICON FDA Start: 06-25-2021 Colectomy, sigmoid RELOAD, SR75 SELECTABLE FDA Start: 06-25-2021 Colectomy, sigmoid RELOAD, SR75 SELECTABLE FDA Start: 06-25-2021 Colectomy, sigmoid RELOAD,LD X THICK COVID FDA Start: 06-25-2021 Colectomy, sigmoid RELOAD,LD X THICK COVID FDA Start: 06-25-2021 Colectomy, sigmoid RELOAD,LD X THICK COVID FDA Start: 06-25-2021 Colectomy, sigmoid STAPLER,INTRA CDH33 ETHICON FDA Start: 06-25-2021 Colectomy, sigmoid RELOAD, SR75 SELECTABLE FDA Start: 06-25-2021 Colectomy, sigmoid RELOAD, SR75 SELECTABLE FDA Start: 06-25-2021 Colectomy, sigmoid RELOAD,LD X THICK COVID FDA Start: 06-25-2021 Colectomy, sigmoid RELOAD,LD X THICK COVID FDA Start: 06-25-2021 Colectomy, sigmoid RELOAD,LD X THICK COVID FDA Start: 06-25-2021 Colectomy, sigmoid STAPLER,INTRA CDH33 ETHICON FDA Start: 06-25-2021 Colectomy, sigmoid RELOAD, SR75 SELECTABLE FDA Start: 06-25-2021 Colectomy, sigmoid RELOAD, SR75 SELECTABLE FDA Start: 06-25-2021 Colectomy, sigmoid RELOAD,LD X THICK COVID FDA Start: 06-25-2021 Colectomy, sigmoid RELOAD,LD X THICK COVID FDA Start: 06-25-2021 Colectomy, sigmoid RELOAD,LD X THICK COVID FDA Start: 06-25-2021 Colectomy, sigmoid STAPLER,INTRA CDH33 ETHICON FDA Start: 06-25-2021 Colectomy, sigmoid RELOAD, SR75 SELECTABLE FDA Start: 06-25-2021 Colectomy, sigmoid RELOAD, SR75 SELECTABLE FDA Start: 06-25-2021 Colectomy, sigmoid RELOAD,LD X THICK COVID FDA Start: 06-25-2021 Colectomy, sigmoid RELOAD,LD X THICK COVID FDA Start: 06-25-2021 Colectomy, sigmoid RELOAD,LD X THICK COVID FDA Start: 06-25-2021 Colectomy, sigmoid STAPLER,INTRA CDH33 ETHICON FDA Start: 06-25-2021 Colectomy, sigmoid RELOAD, SR75 SELECTABLE FDA Start: 06-25-2021 Colectomy, sigmoid RELOAD, SR75 SELECTABLE FDA Start: 06-25-2021 Colectomy, sigmoid RELOAD,LD X THICK COVID FDA Start: 06-25-2021 Colectomy, sigmoid RELOAD,LD X THICK COVID FDA Start: 06-25-2021 Colectomy, sigmoid RELOAD,LD X THICK COVID FDA Start: 06-25-2021 Colectomy, sigmoid STAPLER,INTRA CDH33 ETHICON FDA Start: 06-25-2021 Colectomy, sigmoid RELOAD, SR75 SELECTABLE FDA Start: 06-25-2021 Colectomy, sigmoid RELOAD, SR75 SELECTABLE FDA Start: 06-25-2021 Colectomy, sigmoid RELOAD,LD X THICK COVID FDA Start: 06-25-2021 Colectomy, sigmoid RELOAD,LD X THICK COVID FDA Start: 06-25-2021 Colectomy, sigmoid RELOAD,LD X THICK COVID FDA Start: 06-25-2021 Colectomy, sigmoid STAPLER,INTRA CDH33 ETHICON FDA Start: 06-25-2021 Colectomy, sigmoid RELOAD, SR75 SELECTABLE FDA Start: 06-25-2021 Colectomy, sigmoid RELOAD, SR75 SELECTABLE FDA Start: 06-25-2021 Colectomy, sigmoid RELOAD,LD X THICK COVID FDA Start: 06-25-2021 Colectomy, sigmoid RELOAD,LD X THICK COVID FDA Start: 06-25-2021 Colectomy, sigmoid RELOAD,LD X THICK COVID FDA Start: 06-25-2021 Colectomy, sigmoid STAPLER,INTRA CDH33 ETHICON FDA Start: 06-25-2021 Colectomy, sigmoid RELOAD, SR75 SELECTABLE FDA Start: 06-25-2021 Colectomy, sigmoid RELOAD, SR75 SELECTABLE FDA Start: 06-25-2021 Colectomy, sigmoid RELOAD,LD X THICK COVID FDA Start: 06-25-2021 Colectomy, sigmoid RELOAD,LD X THICK COVID FDA Start: 06-25-2021 Colectomy, sigmoid RELOAD,LD X THICK COVID FDA Start: 06-25-2021 Colectomy, sigmoid STAPLER,INTRA CDH33 ETHICON FDA Start: 06-25-2021 Colectomy, sigmoid RELOAD, SR75 SELECTABLE FDA Start: 06-25-2021 Colectomy, sigmoid RELOAD, SR75 SELECTABLE FDA Start: 06-25-2021 Colectomy, sigmoid RELOAD,LD X THICK COVID FDA Start: 06-25-2021 Colectomy, sigmoid RELOAD,LD X THICK COVID FDA Start: 06-25-2021 Colectomy, sigmoid RELOAD,LD X THICK COVID FDA Start: 06-25-2021 Colectomy, sigmoid STAPLER,INTRA CDH33 ETHICON FDA Start: 06-25-2021 Colectomy, sigmoid RELOAD, SR75 SELECTABLE FDA Start: 06-25-2021 Colectomy, sigmoid RELOAD, SR75 SELECTABLE FDA Start: 06-25-2021 Colectomy, sigmoid RELOAD,LD X THICK COVID FDA Start: 06-25-2021 Colectomy, sigmoid RELOAD,LD X THICK COVID FDA Start: 06-25-2021 Colectomy, sigmoid RELOAD,LD X THICK COVID FDA Start: 06-25-2021 Colectomy, sigmoid STAPLER,INTRA CDH33 ETHICON FDA Start: 06-25-2021 Colectomy, sigmoid RELOAD, SR75 SELECTABLE FDA Start: 06-25-2021 Colectomy, sigmoid RELOAD, SR75 SELECTABLE FDA Start: 06-25-2021 Colectomy, sigmoid RELOAD,LD X THICK COVID FDA Start: 06-25-2021 Colectomy, sigmoid RELOAD,LD X THICK COVID FDA Start: 06-25-2021 Colectomy, sigmoid RELOAD,LD X THICK COVID FDA Start: 06-25-2021 Colectomy, sigmoid STAPLER,INTRA CDH33 ETHICON FDA Start: 06-25-2021 Colectomy, sigmoid RELOAD, SR75 SELECTABLE FDA Start: 06-25-2021 Colectomy, sigmoid RELOAD, SR75 SELECTABLE FDA Start: 06-25-2021 Colectomy, sigmoid RELOAD,LD X THICK COVID FDA Start: 06-25-2021 Colectomy, sigmoid RELOAD,LD X THICK COVID FDA Start: 06-25-2021 Colectomy, sigmoid RELOAD,LD X THICK COVID FDA Start: 06-25-2021 Colectomy, sigmoid STAPLER,INTRA CDH33 ETHICON FDA Start: 06-25-2021 Colectomy, sigmoid RELOAD, SR75 SELECTABLE FDA Start: 06-25-2021 Colectomy, sigmoid RELOAD, SR75 SELECTABLE FDA Start: 06-25-2021 Colectomy, sigmoid RELOAD,LD X THICK COVID FDA Start: 06-25-2021 Colectomy, sigmoid RELOAD,LD X THICK COVID FDA Start: 06-25-2021 Colectomy, sigmoid RELOAD,LD X THICK COVID FDA Start: 06-25-2021 Colectomy, sigmoid STAPLER,INTRA CDH33 ETHICON FDA Start: 06-25-2021 Colectomy, sigmoid RELOAD, SR75 SELECTABLE FDA Start: 06-25-2021 Colectomy, sigmoid RELOAD, SR75 SELECTABLE FDA Start: 06-25-2021 Colectomy, sigmoid RELOAD,LD X THICK COVID FDA Start: 06-25-2021 Colectomy, sigmoid RELOAD,LD X THICK COVID FDA Start: 06-25-2021 Colectomy, sigmoid RELOAD,LD X THICK COVID FDA Start: 06-25-2021 Colectomy, sigmoid STAPLER,INTRA CDH33 ETHICON FDA Start: 06-25-2021 Colectomy, sigmoid RELOAD, SR75 SELECTABLE FDA Start: 06-25-2021 Colectomy, sigmoid RELOAD, SR75 SELECTABLE FDA Start: 06-25-2021 Colectomy, sigmoid RELOAD,LD X THICK COVID FDA Start: 06-25-2021 Colectomy, sigmoid RELOAD,LD X THICK COVID FDA Start: 06-25-2021 Colectomy, sigmoid RELOAD,LD X THICK COVID FDA Start: 06-25-2021 Colectomy, sigmoid STAPLER,INTRA CDH33 ETHICON FDA Start: 06-25-2021 Colectomy, sigmoid RELOAD, SR75 SELECTABLE FDA Start: 06-25-2021 Colectomy, sigmoid RELOAD, SR75 SELECTABLE FDA Start: 06-25-2021 Colectomy, sigmoid RELOAD,LD X THICK COVID FDA Start: 06-25-2021 Colectomy, sigmoid RELOAD,LD X THICK COVID FDA Start: 06-25-2021 Colectomy, sigmoid RELOAD,LD X THICK COVID FDA Start: 06-25-2021 Colectomy, sigmoid STAPLER,INTRA CDH33 ETHICON FDA Start: 06-25-2021 Colectomy, sigmoid RELOAD, SR75 SELECTABLE FDA Start: 06-25-2021 Colectomy, sigmoid RELOAD, SR75 SELECTABLE FDA Start: 06-25-2021 Colectomy, sigmoid RELOAD,LD X THICK COVID FDA Start: 06-25-2021 Colectomy, sigmoid RELOAD,LD X THICK COVID FDA Start: 06-25-2021 Colectomy, sigmoid RELOAD,LD X THICK COVID FDA Start: 06-25-2021 Colectomy, sigmoid STAPLER,INTRA CDH33 ETHICON FDA Start: 06-25-2021 ([id number]) Dual-chamber implantable defibrillator [id number] FDA Start: 10-17-2023 Clinical Notes 10-19-2010 to 06-03-2025 Note Date & Type Note Facility 06-03-2025 Procedure note [facility] 05-30-2025 Progress note [facility] 05-30-2025 Progress note Note Date/Time May 30, 2025 3:22pm [facility] [place] [address] [place] [address] OFFICE VISIT Date of Service: 05/30/25 MR#: [id number] Acct: [id number] Name: GABBY KEARNEY Rep #: [id number] : 1935 Provider: Dr. Marvin Tineo MD Age/Sex: 89/M Location: [facility] Status: Signed HPI HPI History of Present Illness Details: GABBY KEARNEY, is a 89 M who presents to the office today for a cardiovascular outpatient follow-up. He has a history of coronary artery disease with coronarybypass surgery in 2010 with a left internal mammary artery to the left anterior descending artery, saphenous vein graft to diagonal branch, and a saphenous veingraft to posterior circumflex artery branch. He is also has a history ischemic cardiomyopathy, status post ICD implantation for reduced EF, atrial fibrillation, TIA in January 2018, and CKD. He had his ICD generator changed out in10/2023. From a cardiac standpoint, patient is doing well. He does not have any chest discomfort/heaviness/tightness. He does not have any worsening symptoms of shortness of breath. He denies any PND. He does not have any orthopnea. He does not have any symptoms of congestive heart failure. He does not have any palpitations that he is aware of. He does not have any lightheadedness or dizziness. He does not have any near-syncope or syncope. He does not have any lower extremity edema. He does not have any symptoms of claudication. [facility] Vital Signs 03/25/24 08:25 03/27/25 10:00 05/30/25 15:04 Height 5 ft 10.87 in 5 ft 11 in 5 ft 11 in Weight: 171 lb BMI 23.8 BP 109/73 Blood Pressure Location Lt brachial Position Sitting Respiration 16 Pulse 82 Pulse Source Monitor Intake Visit Reasons: 1 Y FU Stitcher Operator Required: No Accompanied by: Self Is patient in pain?: No Allergies No Known Allergies Allergy (Verified 05/30/25 15:07) Medications ?Medication ?Instructions ?Recorded ?Confirmed ?Type cholecalciferol (vitamin D3) 25 25 mcg PO DAILY VITAMI N SUPPLEMENT 12/19/19 05/30/25 History mcg (1,000 unit) capsule apixaban 2.5 mg tablet (Eliquis) 2.5 mg PO BID BLOOD T HINNER 05/07/21 05/30/25 History carvedilol 3.125 mg tablet (Coreg) 12.5 mg PO BID 04/0705/30/25 History furosemide 20 mg tablet 20 mg PO BID 11/19/24 History rosuvastatin 20 mg tablet 20 mg PO QDAY 01/02/2505/30 History colchicine 0.6 mg tablet 0.6 mg PO DIRECTED #10 ta bs 02/06/25 05/30/25 Rx prednisone 50 mg tablet 50 mg PO QDAY #5 tabs 05/30/25 Rx Ejection fraction %: 25 Have you fallen in the past year?: Yes Nurse's Note: pt did not bring med list today [facility] Medical History Olecranon bursitis, left elbow Left elbow pain Chondrocalcinosis of left knee Hypertension Wears glasses High cholesterol Injury of head and neck Cardiology follow-up encounter History of echocardiogram History of stress test Persistent atrial fibrillation Non-sustained ventricular tachycardia Secondary pulmonary arterial hypertension Transient ischemic attack Atherosclerotic heart disease of [place] coronary artery without angina pectoris Hyperlipidemia Ischemic cardiomyopathy Abnormal electrocardiogram [ECG] [EKG] Paroxysmal atrial fibrillation Encounter for long-term current use of high risk medication Palpitations CKD (chronic kidney disease) stage 3, GFR 30-59 ml/min Surgical History Hx of bilateral cataract extraction History of implantable cardiac defibrillator (ICD) Status post laparoscopic colectomy H/O coronary artery bypass surgery (11/24/10) History of umbilical hernia repair Presence of implantable cardioverter-defibrillator (ICD) (05/25/11) Family History Father CAD (coronary artery disease), Onset Age: 55 Mother , unknown cause No problems noted. Brother CAD (coronary artery disease) History of coronary artery bypass graft x 3 Brother Cancer Brother Unknown whether patient has any health problems Brother , unknown causes No problems noted. Social History household members: spouse Smoking Status: Never smoker alcohol intake: never substance use type: does not use caffeine: Yes Type: coffee Number of servings: 2 ROS Const Const: Negative for fatigue, weakness, daytime sleepiness or difficulty sleeping ENT ENT: Negative for dizziness or Nosebleed/epistaxis Cardio Chest Pain: No Palpitations: No Edema: None Resp Respiratory: Positive for SOB with activity; Negative for SOB at rest, SOB orthopnea\SOB lying down or Cough GI GI: Negative nausea, vomiting or heartburn Neuro Neuro: Negative for dizziness, lightheadedness, near syncope or weakness Endo Endo: Negative for fatigue Cardiology Exam Const Appearance: cooperative, healthy appearing, comfortable, no acute distress and well developed Orientation: alert, awake and oriented x3 Head Head: normal to inspection Ears: hearing grossly normal bilaterally Nose: external nose normal Face and Sinus: face symmetric Eyes General: appearance normal, both eyes and all related structures Eyelids: eyelids normal Conjunctivae: conjunctivae normal Pupils: PERRL EOM: EOM intact bilaterally Neck Neck: normal visual inspection and trachea midline; Negative no JVD Carotids: Negative bruit Chest Chest inspection: normal inspection of the chest Auscultation: Bilateral: Clear to Auscultation Cardio Palpation: normal PMI Rate: regular rate Rhythm: regular rhythm Heart sounds: S1 normal and S2 normal; Negative rub, gallop or murmur GI GI: normal to inspection and soft Neuro General: patient alert, patient awake, patient oriented x3 and CN's II-XI intact bilaterally Extremities Pulses: Normal: Right Posterior Tibial Pulse, Left Posterior Tibial Pulse, Right Radial Pulse and Left Radial Pulse Lower Extremity Edema: None: Bilateral Psych Psychological: normal affect Supplemental Info Supplemental Information Echocardiogram 06/01/2024: Dilated LV with severe LV dysfunction Normal RV function with lead TR moderate The left ventricular ejection fraction is 25 %. Normal LV size. The left atrium is mildly enlarged. Pulmonary artery systolic pressure is 50 mmHg. Echocardiogram 10/26/23 Interpretation Summary The left ventricular ejection fraction is 25 %. Mildly dilated left ventricle. Severe segmental systolic dysfunction (see wall motion). Pulmonary artery systolic pressure is 40 mmHg. The left atrium is moderately enlarged. Compared to previous study, the left ventricular systolic function has worsened.. Pharmacologic myocardial perfusion stress test 01/31/2018: Conclusion: Pharmacologic myocardial perfusion stress test with no evidence of ischemia. Previous basal inferior and apical inferior infarct cannot be completely excluded. Diagnostics: Electrocardiogram Echocardiogram Stress Test Stress Test Nuclear Medicine Pacemaker Check Chest X-Ray Abdomen/Pelvis CT Past Visits: Cardiology Visit Today Assessment and Plan Assessment and Plan (1) Persistent atrial fibrillation: Status: Acute Plan: Pt is currently on Coreg and Eliquis. Rate is controlled. (2) H/O coronary artery bypass surgery: Status: Resolved Comment: CABG x 3 MENDOZA-LAD,SVG-D1, 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/2010 Plan: Pt does not have any symptoms of angina. Will not make any changes. (3) Ischemic cardiomyopathy: Status: Chronic Plan: Pt does not have any symptoms of CHF. Echo in 05/2024 demonstrated and EF of 25%. This was similar to before. He will continue with his Coreg and lasix. His BP is on the low side, and with his renal function, will not make any adjustments. (4) Presence of implantable cardioverter-defibrillator (ICD): Status: Chronic Plan: ICD is functioning appropriately. Pt has not had any discharges from their device, they will continue with regular scheduled ICD interrogations. Plan Details Follow Up: 6 Months (mmm) Coding Level of Care Code Off vis,est,level 4 Diagnoses Persistent atrial fibrillation I48.19 H/O coronary artery bypass surgery Z95.1 Ischemic cardiomyopathy I25.5 Presence of implantable cardioverter-defibrillator (ICD) Z95.810 Coding Level of Care Code Off vis,est,level 4 Diagnoses Persistent atrial fibrillation I48.19 H/O coronary artery bypass surgery Z95.1 Ischemic cardiomyopathy I25.5 Presence of implantable cardioverter-defibrillator (ICD) Z95.810 Clinical Quality Measures Falls Risk Screening/Assistive Devices Have you fallen in the past year?: Yes Cardiac Ejection fraction %: 25 05/30/25 1527 <Electronically signed by Ten Ohara> Date _ Ten Tineo MD Cosigner Signature: Date (if applicable) CC: Dr. Aroldo Julio MD ~ [facility] Work Phone: [phone] Telephone encounter Note* Telephone Encounter - Daxa Fry RN - 04/03/2025 6:12 PM EDT Pt called and is notified of providers message and instructions. Pt voices understanding. Daxa Fry RN [facility]08-21-2025 Miscellaneous Notes* Telephone Encounter - Daxa Fry RN - 04/03/2025 6:12 PM EDT Pt called and is notified of providers message and instructions. Pt voices understanding. Daxa Fry RN * Telephone Encounter - Libertad Julio MD - 04/03/2025 2:42 PM EDT He should still be taking it according to my records. Refill sent. * Telephone Encounter - Tati Jung MA - 04/03/2025 1:53 PM EDT Please see message below from pt and advise. Rx ended in November. Pt last seen 11/2024, next appt 06/09/25. Tati Jung MA * Telephone Encounter - Marian Lucas - 04/03/2025 12:36 PM EDT Gabby is calling Libertad Julio MD today to ask if he should still be taking the [id number] mg or has that been removed from his mediation list? Please call patient to advise on his home phone which is verified [facility]acy [facility] Patient has been identified by name and birthdate. Duration of symptoms: N/A Person calling: self Call patient at: at home [phone] (home) Was an appointment scheduled: No Closing statement: Results or non-symptom based questions: Thank you for calling [facility], your call will be returned within the next business day. Marian Mcleod [facility] Telephone encounter Note * Telephone Encounter - Libertad Julio MD - 04/03/2025 2:42 PM EDT He should still be taking it according to my records. Refill sent. [facility]08-21-2025 Telephone encounter Note* Telephone Encounter - Tati Jung MA - 04/03/2025 1:53 PM EDT Please see message below from pt and advise. Rx ended in November. Pt last seen 11/2024, next appt 06/09/25. Tati Jung MA [facility]08-21-2025 Telephone encounter Note* Telephone Encounter - Marian Lucas - 04/03/2025 12:36 PM EDT Gabby is calling Libertad Julio MD today to ask if he should still be taking the [id number] mg or has that been removed from his mediation list? Please call patient to advise on his home phone which is verified Pharmacy is [facility] Patient has been identified by name and birthdate. Duration of symptoms: N/A Person calling: self Call patient at: at home [phone] (home) Was an appointment scheduled: No Closing statement: Results or non-symptom based questions: Thank you for calling [facility], your call will be returned within the next business day. Marian Mcleod [facility]08-14-2025 Discharge summary [facility] Medical Records Department [address] [place] [address] Emergency Department Summary 03/27/25 MR#: [id number] Acct: [id number] Name: GABBY KEARNEY Rep #:[id number] : 1935 89 From: Kiki Zaidi MD PCP: Dr. Aroldo Julio MD Status :REG ER Location: ED HPI History of Present Illness HPI Narrative: Patient is an 89-year-old male presenting emergency department after a fall. Patient has a past medical history as below. Patient states that he was outsideand he tripped on a piece of metal causing him to land into a wood pile on his left arm. He denies hitting his head or any loss of consciousness. Denies any neck or back pain. He was able to get up by himself. He is on Eliquis. Reports that hehas skin tears to his left upper extremity. Daughter states shetried to clean them at home but thendecided to bring him in for evaluation. Hedenies any other injuries. Chief [facility] Medical History Olecranon bursitis, left elbow Left elbow pain Chondrocalcinosis of left knee Hypertension Wears glasses High cholesterol Injury of head and neck Cardiology follow-up encounter History of echocardiogram History of stress test Persistent atrial fibrillation Non-sustained ventricular tachycardia Secondary pulmonary arterial hypertension Transient ischemic attack Atherosclerotic heart disease of [place] coronary artery without angina pectoris Hyperlipidemia Ischemic cardiomyopathy Abnormal electrocardiogram [ECG] [EKG] Paroxysmal atrial fibrillation Encounter for long-term current use of high risk medication Palpitations CKD (chronic kidney disease) stage 3, GFR 30-59 ml/min Home Medications ?Medication ?Instructions ?Recorded ?Last Taken ?Type cholecalciferol (vitamin D3) 25 25 mcg PO DAILY VITAMI N SUPPLEMENT 12/19/19 Unknown History mcg (1,000 unit) capsule apixaban 2.5 mg tablet (Eliquis) 2.5 mg PO BID BLOOD T HINNER 05/07/21 10/16/23 History carvedilol 3.125 mg tablet (Coreg) 12.5 mg PO BID 04/07 Unknown History furosemide 20 mg tablet 20 mg PO BID 11/19/24 Unknow n History rosuvastatin 20 mg tablet 20 mg PO QDAY 01/02/25 Unkno wn History colchicine 0.6 mg tablet 0.6 mg PO DIRECTED #10 ta bs 02/06/25 Unknown Rx prednisone 50 mg tablet 50 mg PO QDAY #5 tabs Unknown Rx Allergy/AdvReac Type Severity Reaction Status Date / Time No Known Allergies Allergy Verified 03/27/25 10:00 Family History Father CAD (coronary artery disease), Onset Age: 55 Mother , unknown cause No problems noted. Brother CAD (coronary artery disease) History of coronary artery bypass graft x 3 Brother Cancer Brother Unknown whether patient has any health problems Brother , unknown causes No problems noted. Surgical History Hx of bilateral cataract extraction History of implantable cardiac defibrillator (ICD) Status post laparoscopic colectomy H/O coronary artery bypass surgery (11/24/10) History of umbilical hernia repair Presence of implantable cardioverter-defibrillator (ICD) (05/25/11) Social History household members: spouse Smoking Status: Never smoker alcohol intake: never substance use type: does not use caffeine: Yes Type: coffee Number of servings: 2 ROS ROS ED ROS Narrative see HPI EXAM Physical Exam Narrative Exam Narrative: Vital signs: Reviewed General: Alert and oriented. No acute distress HEENT: Head is normocephalic and atraumatic, sinuses nontender, pupils equal round and reactive. Nares are patent. Oropharynx and throat exams normal. Neck: Supple without lymphadenopathy nontender. No midline cervical spinal tenderness palpation. Nostep-offs or deformities. Cardiovascular: Regular rate and rhythm, no murmurs. No rubs or gallops. Normal S1 and S2. Chest wall is atraumatic and nontender to palpation. Respiratory: Clear to auscultation bilaterally. No wheezes, rales, rhonchi Abdominal: Soft and nontender. Normal bowel sounds. No guarding or rebound. Nonsurgical abdomen Extremities: No midline thoracic or lumbar spinal tenderness palpation. No step- offs deformities. Hips are stable and nontender to palpation. left elbow with skin tear, no active bleeding. Left dorsal forearm with skin tear as well. No active bleeding. No tenderness to palpation of the left shoulder, upper arm, elbow, forearm, wrist or hand. Extremities are otherwise atraumatic and nontender to palpation with normal range of motion. Skin: No rash or redness. Neurological: Cranial nerves II through XII are grossly intact. Normal strength and sensation. Normal cerebellar function The rest of the physical exam is unremarkable Const Vital Signs: 03/27/25 10:00 Temperature 98.0 F Temperature Source Oral Pulse Rate 89 Respiratory Rate 18 Blood Pressure 121/83 H Blood Pressure Mean 95 Pulse Ox 97 Oxygen Delivery Method Room Air MDM MDM MDM Narrative Medical decision making narrative: Patient is an 89-year-old male presenting to the emergency department for a skin tear after a fall.Patient was seen and examined. Vitals are stable. Patient resting bed comfortably no acute distress. It was a pure mechanical fall, states he tripped on a piece of metal. Denies any prodromal symptoms. No indication for labs or additional workup. He is unsure when his last tetanus vaccine was, updated here. Given he is on Eliquis and his age, CT of the brain and cervical spine were ordered. Will irrigate wound. Given his a skin tear, Steri-Strips and Dermabond will be used. Abdominal pad dressing applied over top. Patient has no tenderness to palpation of the extremities. With the skin tear I did offer xrays to rule out occult fracture however think this is unlikely with no pain and normal ROM, patient and daughter agree this is unnecessary at this time. Patient ambulated without difficulty. Given wound care instructions. CT brain shows no evidence of intracranial hemorrhage. CT cervicalspine is negative for any acute traumatic abnormalities. Patient and daugther updated. All questions were answered. Patient discharged from the Emergency Department. I do not feel that the patient's evaluation reveals any acute reason for admission at this time. I instructed them to either follow-up with their primary care physician or promptly return to the Emergency Department for reevaluation should symptoms worsen or new symptoms develop. I explained what symptoms would indicate the need toreturn to the emergency department. Shared decision making was used. The patient voiced understanding of the treatment plan and is agreeable with it. Clinical impression: 1. fall 2. skin tear Discharge Plan Triage Chief Complaint: Laceration Other Complaint: Fall ED Provider: Kiki Zaidi Dx/Rx/DC Orders Instructions: ED Mechanical Fall, ED Skin Tear (Skin Avulsion) Prescriptions: No Action cholecalciferol (vitamin D3) 25 mcg (1,000 unit) capsule 25 mcg PO DAILY Eliquis 2.5 mg tablet 2.5 mg PO BID Patient Comments: LAST DOSE 11/07/21 furosemide 20 mg tablet 20 mg PO BID carvedilol [Coreg] 3.125 mg tablet 12.5 mg PO BID Rx Instructions: must administer with a meal/food rosuvastatin 20 mg tablet 20 mg PO QDAY colchicine 0.6 mg tablet 0.6 mg PO DIRECTED Qty: 10 0RF Rx Instructions: Take 1 tab day 1 then starting day take 1/2 tab daily as needed until the pain resolves. prednisone 50 mg tablet 50 mg PO QDAY Qty: 5 0RF Primary Care Provider: Aroldo Julio Referrals: Aroldo Julio MD [Primary Care Provider] - 2 Days Activity Restrictions/Additional Instructions: Your evaluation in the Emergency Department did not reveal any acute reason for admission. However,I want to emphasize that you may be early in the course of adisease process or illness even if it is not present. For this reason you shouldfollow-up within 24 hours for reevaluation with either yourprimary care physician or if necessary back here in the Emergency Department. You should return to the Emergency Department immediately if your symptoms worsen or new symptoms develop. Print Language: [place] Disposition Disposition: Home, Self Care What to do if you have Problems For any increased pain, shortness of breath, bleeding, nausea or vomiting, chestpain, or any unexpected problems, contact your Primary Care Provider. Call [facility] ([phone]) or report tothe closest Emergency Room. Call 911 if necessary. 03/27/25 113 Cosigner Signature (if applicable): CC: Dr. Aroldo Julio MD ~ Signed [facility]08-14-2025 Radiology Diagnostic study note [facility] [address] [place], [place] [id number] Spine Cervical without Contras MR#: [id number] Acct: [id number] Name: GABBY KEARNEY Rep #: [id number] : 1935 M 89 From: Herberth Cormier MD PCP: Dr. Aroldo Julio MD Status: REG ER Study:Spine Cervical without Contras Date of Exam: 03/27/25 Exam# [id number] Ordering Dr: Beny Zaidi MD PROCEDURE: SPINE CERVICAL WITHOUT CONTRAS 03/27/2025 REASON FOR EXAM: FALL TECHNIQUE: SPINE CERVICAL WITHOUT CONTRAS Coronal and Sagittal reconstruction series were provided. One or more dose reduction techniques were used (e.g., Automated exposure control, adjustment of the mA and/or kV according to patient size, use of iterative reconstruction technique. RADIATION DOSE SUMMARY: CTDlvol: 65 mGy DLP: 1303 mGycm COMPARISON: None FINDINGS: Alignment: Mild curvature cervical spine to the right. Exaggeration of the cervical lordosis. Vertebrae: Mild decreased bone mineralization. No fracture. Partial ankylosis C2/3 facets on the right. Facet hypertrophy throughout the cervical spine. Soft Tissues: No mass or lymph node enlargement. Atherosclerotic plaque carotidbulbs. Other: Lung apices are clear. CT/Spine Cervical without Contras IMPRESSION: 1. No fracture 2. Multilevel degenerative changes primarily involving the facets. Reading Location: [id number] CC: Dr. Aroldo Julio MD; Dr. Kiki Zaidi MD ~ Test Architect: Signed [facility]08-14-2025 Radiology Diagnostic study note [facility] [address] [place] [id number] Brain/Head without Contrast MR#: [id number] Acct: [id number] Name: GABBY KEARNEY Rep #: [id number] : 1935 M 89 From: Herberth Cormier MD PCP: Dr. Aroldo Julio MD Status: REG ER Study:Brain/Head without Contrast Date of Exa m: 03/27/25 Exam# [id number] Ordering Dr: Beny Zaidi MD PROCEDURE: BRAIN/HEAD WITHOUT CONTRAST 03/27/2025 REASON FOR EXAM: FALL ON ELIQUIS TECHNIQUE: BRAIN/HEAD WITHOUT CONTRAST Coronal and Sagittal reconstruction series were provided. One or more dose reduction techniques were used (e.g., Automated exposure control, adjustment of the mA and/or kV according to patient size, use of iterative reconstruction technique. RADIATION DOSE SUMMARY: CTDlvol: 65 mGy DLP: 1303 mGycm COMPARISON: March 02, 2020 FINDINGS: Brain: There is no evidence of hemorrhage, acute ischemia or mass. No extra- axial fluid collection,midline shift or mass effect. Low-density in the periventricular white matter and deep white matter of the frontal and parietal lobes. CSF Spaces: Moderate generalized cerebral atrophy Sinuses/Mastoids: Circumferential mucosal thickening left maxillary sinus. Otherwise clear. Deviated septum to the right with spur to the right. Bones: No fracture Advanced atherosclerosis of the vasculature of the ageeue-jm-Osiewf. Bilateral lens implants. CT/Brain/Head without Contrast IMPRESSION: 1. No evidence of intracranial hemorrhage or acute ischemia. 2. Changes of chronic microvascular ischemia and volume loss. Reading Location: [id number] CC: Dr. Aroldo Julio MD; Dr. Kiki Zaidi MD ~ Test Architect: Signed [facility]07-30-2025 Evaluation note* Diagnosis Onset Date Resolution Status Admit Date Gouty arthritis of left great toe acute March 12, 2025 10:18am Persistent atrial fibrillation acute May 30 3:03pm Ischemic cardiomyopathy chronic O ctober 2024 3:03pm Presence of implantable cardioverter-defibrillator (ICD) May 25, 2011 chronic May 30, 2025 3:03pm H/O coronary artery bypass surgery November 24, 2010 resolved May 30, 025 3:03pm Persistent atrial fibrillation acute June 03 8:12am Ischemic cardiomyopathy chronic O ctober 2024 8:12am Non-sustained ventricular tachycardia chronic June 03 8:12am Paroxysmal atrial fibrillation chronic June 03 8:12am Presence of implantable cardioverter-defibrillator (ICD) May 25, 2011 chronic June 03, 2025 8:12am [facility] Work Phone: 1(583) 227-685307-08-2025 Procedure [facility] [address] [place], [place] [address] Pacemaker Check Date of Service: 02/18/251716 MR#: [id number] Acct: [id number] Name: GABBY KEARNEY Rep #: [id number] : 1935 From: Tamara allen Age/Sex: 89/M Location: [facility] Status: Signed Billing Codes ICD Device Billin ICD Dev Prog Eval, Dual Assessment and Plan Assessment and Plan (1) Ischemic cardiomyopathy: Status: Chronic (2) Presence of implantable cardioverter-defibrillator (ICD): Status: Chronic (3) Paroxysmal atrial fibrillation: Status: Chronic (4) Non-sustained ventricular tachycardia: Status: Chronic 02/18/251716 > Date _ Tamara Marquez Signature: Date (if applicable) CC: ~ [facility]07-08-2025 Evaluation note* Diagnosis Onset Date Resolution Status Admit Date Ischemic cardiomyopathy chronic J jose l2024 8:12am Non-sustained ventricular tachycardia chronic February 18, 2025 8:12am Paroxysmal atrial fibrillation chronic February 18, 2025 8:12am Presence of implantable cardioverter-defibrillator (ICD) May 25, 2011 chronic February 18 8:12am Gouty arthritis of left great toe acute March 12, 2025 10:18am Persistent atrial fibrillation acute May 30 3:03pm Ischemic cardiomyopathy chronic O ctober 2024 3:03pm Presence of implantable cardioverter-defibrillator (ICD) May 25, 2011 chronic May 30, 2025 3:03pm H/O coronary artery bypass surgery November 24, 2010 resolved May 30, 2 025 3:03pm Persistent atrial fibrillation acute June 03 8:12am Ischemic cardiomyopathy chronic O ct2024 8:12am Non-sustained ventricular tachycardia chronic June 03 8:12am Paroxysmal atrial fibrillation chronic June 03 8:12am Presence of implantable cardioverter-defibrillator (ICD) May 25, 2011 chronic June 03, 2025 8:12am [facility] Work Phone: 1(994) 593-563205-29-2025 Progress [facility] [address], [address] [place] [id number] OFFICE VISIT Date of Service: 01/09/25 MR#: [id number] Acct: [id number] Name: GABBY KEARNEY Rep #: [id number] : 1935 Provider: ALDAIR Shane Age/Sex: 89/M Location: [facility] Status: Signed Intake Vital Signs 01/02/25 11:46 01/09/25 08:57 Height 5 ft 11 in Weight: 170 lb 8 oz BMI 23.8 BP 110/66 100/60 Blood Pressure Location Lt brachial Position Sitting Sitting Respiration 17 Pulse 68 66 Pulse Source NIBP Temp 98.0 F 97.8 F Temp Source Oral Oral Pulse Oximetry (%) 96 91 Oxygen Delivery Method room air room air Intake Visit Reasons: CONCERN FOR GOUT ON R BIG TOE Chief Complaint: right great toe pain/redness Accompanied by: Self Allergies No Known Allergies Allergy (Verified 01/09/25 08:56) Medications ?Medication ?Instructions ?Recorded ?Confirmed ?Type cholecalciferol (vitamin D3) 25 25 mcg PO DAILY VITAMI N SUPPLEMENT 12/19/19 01/09/25 History mcg (1,000 unit) capsule apixaban 2.5 mg tablet (Eliquis) 2.5 mg PO BID BLOOD T HINNER 05/07/21 01/09/25 History carvedilol 3.125 mg tablet (Coreg) 12.5 mg PO BID 04/0701/09/25 History furosemide 20 mg tablet 20 mg PO BID 11/19/24 History rosuvastatin 20 mg tablet 20 mg PO QDAY 01/02/2501/09 History colchicine 0.6 mg tablet 0.6 mg PO DIRECTED #10 ta bs 01/09/25 01/09/25 Rx Have you fallen in the past year?: No Nurse's Note: Patient here for concern for gout. Patient states he took all the Medrol Lucas andit helped him and then the last couple days he has pain again. [facility] Medical History Olecranon bursitis, left elbow Left elbow pain Chondrocalcinosis of left knee Hypertension Wears glasses High cholesterol Injury of head and neck Cardiology follow-up encounter History of echocardiogram History of stress test Persistent atrial fibrillation Non-sustained ventricular tachycardia Secondary pulmonary arterial hypertension Transient ischemic attack Atherosclerotic heart disease of [place] coronary artery without angina pectoris Hyperlipidemia Ischemic cardiomyopathy Abnormal electrocardiogram [ECG] [EKG] Paroxysmal atrial fibrillation Encounter for long-term current use of high risk medication Palpitations CKD (chronic kidney disease) stage 3, GFR 30-59 ml/min Surgical History Hx of bilateral cataract extraction History of implantable cardiac defibrillator (ICD) Status post laparoscopic colectomy H/O coronary artery bypass surgery (11/24/10) History of umbilical hernia repair Presence of implantable cardioverter-defibrillator (ICD) (05/25/11) Family History Father CAD (coronary artery disease), Onset Age: 55 Mother , unknown cause No problems noted. Brother CAD (coronary artery disease) History of coronary artery bypass graft x 3 Brother Cancer Brother Unknown whether patient has any health problems Brother , unknown causes No problems noted. Social History household members: spouse Smoking Status: Never smoker alcohol intake: never substance use type: does not use caffeine: Yes Type: coffee Number of servings: 2 HPI HPI Chief Complaint: right great toe pain/redness Details: GABBY KEARNEY, is a 89 M who presents to the office today for complaint of returning gout. Patient states that he took his Medrol and has a resolution of his symptoms however yesterday started havingmore pain and redness again. Patient denies any injury to the same. No fever, chills or sweats. No nausea, vomiting or diarrhea. No other associated symptoms or alleviating/aggravating factors. ROS Const Constitutional: No other (6 system ROS completed with pertinent findings in the HPI otherwise normal.) Exam Const General: cooperative and healthy appearing Skin General: no rashes or lesions noted Neuro General: patient alert Extrem Other: Erythema and swelling right great toe with pain to palpation. Psych Appearance: grossly normal Mental Status: mental status grossly normal Coding Level of Care Code Off vis,est,level 3 Diagnoses Gouty arthritis of right great toe M10.9 Assessment and Plan Assessment and Plan (1) Gouty arthritis of right great toe: Status: Acute Medications: New colchicine Take 2 tabs day 1 followed by 1 more tab 1 hour later then starting day 2 take 1 tab every 12 hoursas needed until the pain resolves. 0.6 mg PO DIRECTED 10 tabs 0RF Plan Colchicine as prescribed today. Encouraged to get plenty of rest, drink lots of clear liquids, and use Tylenol or Ibuprofen (unless contraindicated) for fever and comfort. Patient also educated on other symptomatic management techniques. To be seen in 7-10 days if no improvement; sooner if worsening of symptoms. Patient advised of potential red flags and when appropriate to report to the ED. Patient verbalized understanding and agreement with all the above. Clinical Quality Measures Falls Risk Screening/Assistive Devices Have you fallen in the past year?: No 01/09/25 0928 Ryne PA> Date _ Magdaleno Marquez Signature: Date (if applicable) CC: ~ [facility]05-29-2025 Progress note Author Magdaleno Coles [facility] Note Date/Time January 09, 2025 9:28a m [facility] [address], [address] [place] [address] OFFICE VISIT Date of Service: 01/09/25 MR#: [id number] Acct: [id number] Name: GABBY KEARNEY Rep #: [id number] : 1935 Provider: ALDAIR Shane Age/Sex: 89/M Location: [facility] Status: Signed Intake Vital Signs 01/02/25 11:46 01/09/25 08:57 Height 5 ft 11 in Weight: 170 lb 8 oz BMI 23.8 BP 110/66 100/60 Blood Pressure Location Lt brachial Position Sitting Sitting Respiration 17 Pulse 68 66 Pulse Source NIBP Temp 98.0 F 97.8 F Temp Source Oral Oral Pulse Oximetry (%) 96 91 Oxygen Delivery Method room air room air Intake Visit Reasons: CONCERN FOR GOUT ON R BIG TOE Chief Complaint: right great toe pain/redness Accompanied by: Self Allergies No Known Allergies Allergy (Verified 01/09/25 08:56) Medications ?Medication ?Instructions ?Recorded ?Confirmed ?Type cholecalciferol (vitamin D3) 25 25 mcg PO DAILY VITAMI N SUPPLEMENT 12/19/19 01/09/25 History mcg (1,000 unit) capsule apixaban 2.5 mg tablet (Eliquis) 2.5 mg PO BID BLOOD T HINNER 05/07/21 01/09/25 History carvedilol 3.125 mg tablet (Coreg) 12.5 mg PO BID 04/0701/09/25 History furosemide 20 mg tablet 20 mg PO BID 11/19/24 History rosuvastatin 20 mg tablet 20 mg PO QDAY 01/02/2501/09 History colchicine 0.6 mg tablet 0.6 mg PO DIRECTED #10 ta bs 01/09/25 01/09/25 Rx Have you fallen in the past year?: No Nurse's Note: Patient here for concern for gout. Patient states he took all the Medrol Lucas andit helped him and then the last couple days he has pain again. [facility] Medical History Olecranon bursitis, left elbow Left elbow pain Chondrocalcinosis of left knee Hypertension Wears glasses High cholesterol Injury of head and neck Cardiology follow-up encounter History of echocardiogram History of stress test Persistent atrial fibrillation Non-sustained ventricular tachycardia Secondary pulmonary arterial hypertension Transient ischemic attack Atherosclerotic heart disease of [place] coronary artery without angina pectoris Hyperlipidemia Ischemic cardiomyopathy Abnormal electrocardiogram [ECG] [EKG] Paroxysmal atrial fibrillation Encounter for long-term current use of high risk medication Palpitations CKD (chronic kidney disease) stage 3, GFR 30-59 ml/min Surgical History Hx of bilateral cataract extraction History of implantable cardiac defibrillator (ICD) Status post laparoscopic colectomy H/O coronary artery bypass surgery (11/24/10) History of umbilical hernia repair Presence of implantable cardioverter-defibrillator (ICD) (05/25/11) Family History Father CAD (coronary artery disease), Onset Age: 55 Mother , unknown cause No problems noted. Brother CAD (coronary artery disease) History of coronary artery bypass graft x 3 Brother Cancer Brother Unknown whether patient has any health problems Brother , unknown causes No problems noted. Social History household members: spouse Smoking Status: Never smoker alcohol intake: never substance use type: does not use caffeine: Yes Type: coffee Number of servings: 2 HPI HPI Chief Complaint: right great toe pain/redness Details: GABBY KEARNEY, is a 89 M who presents to the office today for complaint of returning gout. Patient states that he took his Medrol and has a resolution of his symptoms however yesterday started having more pain and redness again. Patient denies any injury to the same. No fever, chills or sweats. No nausea, vomiting or diarrhea. No other associated symptoms or alleviating/aggravating factors. ROS Const Constitutional: No other (6 system ROS completed with pertinent findings in the HPI otherwise normal.) Exam Const General: cooperative and healthy appearing Skin General: no rashes or lesions noted Neuro General: patient alert Extrem Other: Erythema and swelling right great toe with pain to palpation. Psych Appearance: grossly normal Mental Status: mental status grossly normal Coding Level of Care Code Off vis,est,level 3 Diagnoses Gouty arthritis of right great toe M10.9 Assessment and Plan Assessment and Plan (1) Gouty arthritis of right great toe: Status: Acute Medications: New colchicine Take 2 tabs day 1 followed by 1 more tab 1 hour later then starting day 2 take 1 tab every 12 hours as needed until the pain resolves. 0.6 mg PO DIRECTED 10 tabs 0RF Plan Colchicine as prescribed today. Encouraged to get plenty of rest, drink lots of clear liquids, and use Tylenol or Ibuprofen (unless contraindicated) for fever and comfort. Patient also educated on other symptomatic management techniques. To be seen in 7-10 days if no improvement; sooner if worsening of symptoms. Patient advised of potential red flags and when appropriate to report to the ED. Patient verbalized understanding and agreement with all the above. Clinical Quality Measures Falls Risk Screening/Assistive Devices Have you fallen in the past year?: No 01/09/25 0928 <Electronically signed by Magdaleno QUINTEROS> Date _ Magdaleno Mathisigner Signature: Date (if applicable) CC: ~ [facility] Work Phone: 1(316) 974-762705-22-2025 Evaluation note* Diagnosis Onset Date Resolution Status Admit Date Gouty arthritis of right great toe acute January 02, 2025 11:37am Gouty arthritis of right great toe acute January 09, 2025 8:51am Gouty arthritis of left great toe acute February 06, 2025 8:30am Ischemic cardiomyopathy chronic J 2024 8:12am Non-sustained ventricular tachycardia chronic February 18, 2025 8:12am Paroxysmal atrial fibrillation chronic February 18, 2025 8:12am Presence of implantable cardioverter-defibrillator (ICD) May 25, 2011 chronic February 18 8:12am Gouty arthritis of left great toe acute March 12, 2025 10:18am [facility] Work Phone: 1(753) 513-433604-25-2025 NoteHNO ID: [id number] Author: JONATHAN JO APRN.CASPER Service: ? Author Type: Nurse Practitioner Type: Progress Notes Filed: 12/06/2024 09:01 Note Text: Gabby Kearney is a 89 year old male here for a Medicare wellness visit. Medicare Health Risk Assessment General Health N/A Exercise: Minutes/Day N/A Exercise: Days/Week N/A Alcohol: Daily Use N/A Alcohol: Drinks/Day N/A Alcohol: 6 or more drinks N/A Feel off balance N/A Concerns: Teeth/Dentures N/A Concerns: Sexual function N/A Troubled by feelings N/A Frequency: Eating healthy diet N/A ADLs requiring help N/A Safety precautions in home/vehicle N/A Smoke, vape, chews tobacco N/A Difficulty hearing N/A Difficulty seeing N/A Current Providers Specialists: I have reviewed specialist-related care of the patient in the medical record. Current care team: Patient Care Team: Libertad Julio MD as PCP - General (Family Medicine) Podlogar, AMADEO Vanegas.MEDICAL REFERRAL COORDINATOR as Planner/Scheduler (Family Medicine) Jonathan Jo APRN.CNP as Planner/Scheduler (Family Medicine) Medical/Family history review Reviewed and updated problem list, medical/surgical/family/social history, medications, and allergies. Opioid use review Opioid Medications (last 90 days) 12/06/2024 Opioid Medications oxycodone HCl 5 mg q 4 H PRN ORAL (5 mg cap) Details Patient-reported Prescribed No opioid use on file in the last 90 days Does patient have risk factors for opioid abuse? No Pain overview Current pain concerns and treatment plan reviewed. Patient stable on current treatment plan. Anxiety/Depression screening (Lower risk for depression) (Lower risk for anxiety) Recommendation: no further intervention at this time Cognitive screening Cognitive screening reviewed and Recommended referral for further evaluation (score 0-2). Functional Observation Was the patient's Timed Up AND Go test unsteady or >= 12 seconds? No Advance Care Planning Patient did not wish or was not able to name a surrogate decision maker or provide an advance care plan Measurements BP 108/66 Pulse 72 Wt 80 kg (176 lb 5.9 oz) BMI 25.31 kg/m? Vision Screening: Follows with optometry/ophthalmology Assessment/Plan Medicare annual wellness visit, subsequent (Z00.00) - Counseled on healthy diet and regular exercise - Fall avoidance information provided - Personalized prevention plan provided - Discussed need for and benefit of weight loss. BMI 25.31 kg/(m2) Chief Complaint Patient presents with: Medicare Wellness Exam HPI Gabby Kearney is a 89 year old male who presents here today for Above Complaints.. Patient presents for routine follow up. Patient reports he has occasional right flank pain but does not have it currently. Past medical history, appointments, medications, allergies reviewed. Previous Medical History PAST MEDICAL HISTORY Diagnosis Date Anemia of chronic disease Atrial flutter (HCC) CAD (coronary artery disease) 2010 CABG x3, Seeing Dr. Tineo CHF (congestive heart failure) (HCC) CKD (chronic kidney disease), stage III (HCC) Hiatal hernia with GERD 12/2016 UGI 01/10/17 at [facility] Hyperlipidemia Hypertension Inguinal hernia, bilateral Ischemic cardiomyopathy [...] on File Prior to Visit Medication Sig oxyCODONE ir (OXYIR) 5 mg capsule Take 5 mg by mouth every 4 hours as needed for pain. tiZANidine (ZANAFLEX) 2 mg tablet Take 2 mg by mouth every 8 hours as needed (muscle strain). Acetaminophen 500 mg cap Take 1 capsule by mouth daily at bedtime. carvedilol (COREG) 3.125 mg tablet Take 1 tablet by mouth two times a day with meals. furosemide (LASIX) 20 mg tablet Take 1 tablet by mouth two times a day. Ascorbic Acid 500 mg chew Take 500 mg by mouth once daily. cholecalciferol, vitamin D3, (VITAMIN D3 ORAL) Take 1 tablet by mouth once daily. apixaban (ELIQUIS) 2.5 mg tab tab(s) Take 1 tablet by mouth twice daily. No current facility-administered medications on file prior to visit. Social History Social History Tobacco Use Smoking status: Never Smokeless tobacco: Never Toba (more content not included)...[facility]04-08-2025 Evaluation note* Diagnosis Onset Date Resolution Status Admit Date Persistent atrial fibrillation acute November 19, 2024 12:54pm Ischemic cardiomyopathy chronic A pril 2024 12:54pm Presence of implantable cardioverter-defibrillator (ICD) May 25, 2011 chronic November 19 12:54pm H/O coronary artery bypass surgery November 24, 2010 resolved November 19, 2024 12:54pm Persistent atrial fibrillation acute November 19, 2024 12:56pm Ischemic cardiomyopathy chronic A 2024 12:56pm Non-sustained ventricular tachycardia chronic November 19, 2024 12:56pm Presence of implantable cardioverter-defibrillator (ICD) May 25, 2011 chronic November 19 12:56pm Gouty arthritis of right great toe acute January 02, 2025 11:37am Gouty arthritis of right great toe acute January 09, 2025 8:51am [facility] [employer] Work Phone: 1([phone]) 760-653104-08-2025 Evaluation note* Diagnosis Onset Date Resolution Status Admit Date Persistent atrial fibrillation acute November 19, 2024 12:54pm Ischemic cardiomyopathy chronic A 2024 12:54pm Presence of implantable cardioverter-defibrillator (ICD) May 25, 2011 chronic November 19 12:54pm H/O coronary artery bypass surgery November 24, 2010 resolved November 19, 2024 12:54pm Persistent atrial fibrillation acute November 19, 2024 12:56pm Ischemic cardiomyopathy chronic A pri2024 12:56pm Non-sustained ventricular tachycardia chronic November 19, 2024 12:56pm Presence of implantable cardioverter-defibrillator (ICD) May 25, 2011 chronic November 19 12:56pm Gouty arthritis of right great toe acute January 02, 2025 11:37am Gouty arthritis of right great toe acute January 09, 2025 8:51am Gouty arthritis of left great toe acute February 06, 2025 8:30am Ischemic cardiomyopathy chronic J jose l 2024 8:12am Non-sustained ventricular tachycardia chronic February 18, 2025 8:12am Paroxysmal atrial fibrillation chronic February 18, 2025 8:12am Presence of implantable cardioverter-defibrillator (ICD) May 25, 2011 chronic February 18 8:12am [facility] Work Phone: 1(713) 315-378103-24-2025 NoteHNO ID: [id number] Author: JOHN LOZANO MA Service: ? Author Type: Marketing Director Assisted Living Type: Progress Notes Filed: 11/04/2024 15:18 Note Text: POPULATION HEALTH NAVIGATION OUTREACH Action/FYI Care gaps due: AWV Spoke to pt, declined scheduling, updated appt notes. Reason for Outreach Care Gap/HCC or Scheduling Wellness Visits Care Gaps due: Medicare Annual Wellness Visit Patient Contacted: Spoke to patient/parent/or legal guardian Patient identified by name and : No Navigation Signature: John Lozano MA November 04, 2024 3:15 [facility]03-24-2025 History of Present illness Narrative* John Lozano MA - 11/04/2024 3:15 PM EDT POPULATION HEALTH NAVIGATION OUTREACH Action/FYI Care gaps due: AWV Spoke to pt, declined scheduling, updated appt notes. Reason for Outreach Care Gap/HCC or Scheduling Wellness Visits Care Gaps due: Medicare Annual Wellness Visit Patient Contacted: Spoke to patient/parent/or legal guardian Patient identified by name and : No Navigation Signature: John Lozano MA November 04, 2024 3:15 PM [facility] NotePatient Outreach (NETNAV) GABBY KEARNEY ([id number]) 1935 M Date Time Provider Department 11/04/24 JOHN LOZANO During your visit today, we recorded the following information about you: John Lozano MA 11/04/2024 3:18 PM Signed POPULATION HEALTH NAVIGATION OUTREACH Action/FYI Care gaps due: AWV Spoke to pt, declined scheduling, updated appt notes. Reason for Outreach Care Gap/HCC or Scheduling Wellness Visits Care Gaps due: Medicare Annual Wellness Visit Patient Contacted: Spoke to patient/parent/or legal guardian Patient identified by name and : No Navigation Signature: John Lozano MA November 04, 2024 3:15 PM Allergies As of Date: 11/04/2024 (No Known Allergies) Date Reviewed: 06/10/2024 Reviewed by: Yanira Rueda LPN - Fully Assessed Reason for Visit: Population Health Navigation Outreach [3910] Cmt: Anil nicole Prescriptions as of 11/04/2024 - oxyCODONE ir (OXYIR) 5 mg capsule Take 5 mg by mouth every 4 hours as needed for pain. - tiZANidine (ZANAFLEX) 2 mg tablet Take 2 mg by mouth every 8 hours as needed (muscle strain). - Acetaminophen 500 mg cap Take 1 capsule by mouth daily at bedtime. - carvedilol (COREG) 3.125 mg tablet Take 1 tablet by mouth two times a day with meals. - furosemide (LASIX) 20 mg tablet Take 1 tablet by mouth two times a day. - Ascorbic Acid 500 mg chew Take 500 mg by mouth once daily. - cholecalciferol, vitamin D3, (VITAMIN D3 ORAL) Take 1 tablet by mouth once daily. - apixaban (ELIQUIS) 2.5 mg tab tab(s) Take 1 tablet by mouth twice daily. 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] 07/27/2009 Inguinal Hernia Bilateral 07/27/2009 Rectal bleeding [K62.5] 10/19/2010 09/15/2017 Internal hemorrhoids [K64.8] 10/25/2010 Diverticulosis of colon [K57.30] 10/25/2010 CAD (coronary artery disease) [I25.10] 08/14/2010 Pneumonia [J18.9] 10/31/2016 Presence of combination internal cardiac defibr*08/14/2010 Hypertension [I10] Hiatal hernia with GERD [K44.9, K21.9] 12/12/2016 Hyperlipidemia [E78.5] Stage 3a chronic kidney disease (HCC) [N18.31] TIA (transient ischemic attack) [G45.9] 08/14/2017 Atrial flutter (HCC) [I48.92] Refusal of statin medication by patient [Z53.20]09/26/2019 Hypertensive kidney disease with stage 3a chron*07/13/2021 Stage 3b chronic kidney disease (HCC) [N18.32] 04/11/2022 Chronic kidney disease, stage 4 (severe) (HCC) *11/13/2023 Encounter Status:Closed by JOHN LOZANO on 11/04/24[facility] 09-13-2024 Telephone encounter Note* Telephone Encounter - Judi Garcia LPN - 09/13/2024 1:20 PM EST Patient notified and verbalized understanding. Judi Garcia LPN [facility]01-31-2025 Miscellaneous Notes* Telephone Encounter - Judi Garcia LPN - 09/13/2024 1:20 PM EST Patient notified and verbalized understanding. Judi Garcia LPN * Telephone Encounter - Judi Garcia LPN - 09/13/2024 1:17 PM EST ----- Message from Libertad Julio MD sent at 09/12/2024 8:54 PM EST ----- CT chest shows stable pulmonary nodules without new or suspicious findings. Mild to moderate emphysema noted along with new sclerosis of T2 and T7 vertebral bodies. Unless patient has had recent fallor injury to his back, would recommend MRI of the thoracic spine to further evaluate spine changes for possible malignancy vs compression injury. If agreeable, will place MRI order. documented in [facility] encounter[facility] Telephone encounter Note * Telephone Encounter - Judi Garcia LPN - 09/13/2024 1:17 PM EST ----- Message from Libertad Julio MD sent at 09/12/2024 8:54 PM EST ----- CT chest shows stable pulmonary nodules without new or suspicious findings. Mild to moderate emphysema noted along with new sclerosis of T2 and T7 vertebral bodies. Unless patient has had recent fallor injury to his back, would recommend MRI of the thoracic spine to further evaluate spine changes for possible malignancy vs compression injury. If agreeable, will place MRI order. [facility]01-28[facility] History of Present illness Narrative* Loreta Bell RT(R) - 09/10/2024 8:00 AM EST Radiology Service Progress Note PATIENT NAME: Gabby Kearney DATE OF SERVICE: September 10, 2024 TIME: 1:01 PM PATIENT IDENTITY VERIFICATION COMPLETED USING TWO (2) IDENTIFIERS: Name and Date of confirmedby patient verbally. FALL SCREENING: Has the patient had 2 falls in the last year or 1 fall with injury or currently using an Ambulatory Assistive Device (Walker, Cane, Wheelchair, Crutches, etc.)? No PATIENT GENDER DATA: Assigned male at PATIENT RELEVANT IMPLANT DATA REVIEWED: Yes PATIENT PRESENTS WITH AN IMPLANTABLE OR ATTACHED ART PSYCHOTHERAPIST: No RADIOLOGY DEPARTMENT: CT; Exam(s) Completed: Chest PERIPHERAL IV DATA: Not applicable SIGNED BY: RT Haritha(Malcom) September 10, 2024 1:01 PM documented in this encounterWayne [facility]01-28-2025 NoteHNO ID: [id number] Author: LORETA BELL RT(R) Service: ? Author Type: [employer] Type: Progress Notes Filed: 09/10/2024 13:01 Note Text: Radiology Service Progress Note PATIENT NAME: Gabby Kearney DATE OF SERVICE: September 10, 2024 TIME: 1:01 PM PATIENT IDENTITY VERIFICATION COMPLETED USING TWO (2) IDENTIFIERS: Name and Date of confirmed by patient verbally. FALL SCREENING: Has the patient had 2 falls in the last year or 1 fall with injury or currently using an Ambulatory Assistive Device (Walker, Cane, Wheelchair, Crutches, etc.)? No PATIENT GENDER DATA: Assigned male at PATIENT RELEVANT IMPLANT DATA REVIEWED: Yes PATIENT PRESENTS WITH AN IMPLANTABLE OR ATTACHED ART PSYCHOTHERAPIST: No RADIOLOGY DEPARTMENT: CT; Exam(s) Completed: Chest PERIPHERAL IV DATA: Not applicable SIGNED BY: RT Haritha(R) September 10, 2024 1:01 [facility]10-29-2024 Telephone encounter Note* Telephone Encounter - Yanira Rueda LPN - 06/11/2024 10:54 AM EDT Contacted patient by phone and reviewed results and recommendations with him Patient voiced understanding. Results forwarded to [facility] as recommended. Yanira Rueda LPN [facility]10-29-[facility]24 Miscellaneous Notes* Telephone Encounter - Yanira Rueda LPN - 06/11/2024 10:54 AM EDT Contacted patient by phone and reviewed results and recommendations with him Patient voiced understanding. Results forwarded to [facility] as recommended. Yanira Rueda LPN * Telephone Encounter - Yanira Rueda LPN - 06/11/2024 7:45 AM EDT ----- Message from Libertad Julio MD sent at 06/11/2024 7:28 AM EDT ----- Despite clinical improvement in his back pain and no signs of heart failure on his exam, patient's BNP is elevated to 4,400 on these labs. In the hospital, it was reported to be in the 300's. His weight was improving slowly on his home scale with higher dose of lasix. I would have him continue his current regimen and call to schedule earlier appointment with his wallpaperer. Continue to check daily weights and call with increase in weight as discussed in office or with new symptoms of leg swelling, SOB, fatigue, chest pain, or palpitation. Go to the ER with severe symptoms. Despite increase in his lasix to 20 mg BID, kidney function and potassium level remain stable. Continue current regimen. Please fax results to patient's wallpaperer. documented in this encounterWay[facility]10-29-2024 Telephone encounter Note * Telephone Encounter - Yanira Rueda LPN - 06/11/2024 7:45 AM EDT ----- Message from Libertad Julio MD sent at 06/11/2024 7:28 AM EDT ----- Despite clinical improvement in his back pain and no signs of heart failure on his exam, patient's BNP is elevated to 4,400 on these labs. In the hospital, it was reported to be in the 300's. His weight was improving slowly on his home scale with higher dose of lasix. I would have him continue his current regimen and call to schedule earlier appointment with his wallpaperer. Continue to check daily weights and call with increase in weight as discussed in office or with new symptoms of leg swelling, SOB, fatigue, chest pain, or palpitation. Go to the ER with severe symptoms. Despite increase in his lasix to 20 mg BID, kidney function and potassium level remain stable. Continue current regimen. Please fax results to patient's wallpaperer. [facility]10-[facility] Telephone encounter Note* Telephone Encounter - Gladys Ontiveros LPN - 06/10/2024 1:26 PM EDT Patient telephoned and notified of results and provider update. Gladys Ontiveros LPN [facility]10-28-2024 Miscellaneous Notes* Telephone Encounter - Gladys Ontiveros LPN - 06/10/2024 1:26 PM EDT Patient telephoned and notified of results and provider update. 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 No change in regimen based on these results. 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 No change in regimen based on these results. [facility] History of Present illness Narrative* Jefferson Riley, RT(R) - 06/10/2024 11:20 AM EDT Radiology Service Progress Note PATIENT NAME: Gabby Kearney DATE OF SERVICE: June 10, 2024 TIME: 11:07 AM PATIENT IDENTITY VERIFICATION COMPLETED USING TWO (2) IDENTIFIERS: Name and Date of confirmedby patient verbally. FALL SCREENING: Has the patient had 2 falls in the last year or 1 fall with injury or currently using an Ambulatory Assistive Device (Walker, Cane, Wheelchair, Crutches, etc.)? No PATIENT GENDER DATA: Male PATIENT RELEVANT IMPLANT DATA REVIEWED: Yes PATIENT PRESENTS WITH AN IMPLANTABLE OR ATTACHED ART PSYCHOTHERAPIST: No RADIOLOGY DEPARTMENT: General X-ray: Exam(s) Completed: Pelvis X-Ray: Pelvis with Hip Left PERIPHERAL IV DATA: Not applicable SIGNED BY: RT Nora(R) June 10, 2024 11:07 AM documented in this encounterWayne [facility]10-28-2024 NoteHNO ID: [id number] Author: JEFFERSON RILEY RT(R) Service: ? Author Type: [employer] Type: Progress Notes Filed: 06/10/2024 11:22 Note Text: Radiology Service Progress Note PATIENT NAME: Gabby Kearney DATE OF SERVICE: June 10, 2024 TIME: 11:07 AM PATIENT IDENTITY VERIFICATION COMPLETED USING TWO (2) IDENTIFIERS: Name and Date of confirmed by patient verbally. FALL SCREENING: Has the patient had 2 falls in the last year or 1 fall with injury or currently using an Ambulatory Assistive Device (Walker, Cane, Wheelchair, Crutches, etc.)? No PATIENT GENDER DATA: Male PATIENT RELEVANT IMPLANT DATA REVIEWED: Yes PATIENT PRESENTS WITH AN IMPLANTABLE OR ATTACHED ART PSYCHOTHERAPIST: No RADIOLOGY DEPARTMENT: General X-ray: Exam(s) Completed: Pelvis X-Ray: Pelvis with Hip Left PERIPHERAL IV DATA: Not applicable SIGNED BY: RT Nora(R) June 10, 2024 11:07 [facility]10-28-2024 Instructions* Patient Instructions* Liberatd Julio MD - 06/10/2024 10:45 AM EDT Please call with weight increase of more than 2-3 lbs in 24 hours or 5 lbs total. Call if blood pressure is less than 100/60 or with lightheadedness or dizziness. Return to the ER with severe pain, chest pain, shortness of breath, palpitations, or coughing up blood. documented in this encounterWayne [facility]10-28-2024 NoteHNO ID: [id number] Author: LIBERTAD JULIO MD Service: ? Author Type: Physician Type: Progress Notes Filed: 06/11/2024 14:59 Note Text: Chief Complaint Patient presents with: ER F/U: With back pain/generalized pain HPI Gabby Kearney is a 89 year old male who presents here today for Hospital Discharge Follow up. Accompanied today by his daughter Martha. Patient admitted to [facility] from 05/30 to 06/03 after presenting to the ER with intractable back pain after a fall from ladder, 2 steps up, onto concrete. Complained at that time of pleuritic pain in the mid back with SOB. Found to be hypoxic at 87% on RA, requiring [address] chest, abdomen, and pelvis obtained which was negative for acute fractures or bleed, but did notes mild interstitial edema on the lungs with right mid lung nodule. Will need f/u CT based on Fleischner guidelines. BNP elevated at 384. CXR negative for infiltrate. CT brain unremarkable. Given lidocaine patch, tylenol, and oxycodone, muscle relaxants, and gabapentin for pain while inpatient. Hpoxia and pain improved during course of his hospital stay. Did not require oxygen on discharge. Echo obtained during stay with severe LV dysfunction and EF 25% with pulmonary artery pressure of 50 mmHg. Lasix dosage increased from 20 mg daily to BID and reduced Coreg to 3.125 mg BID due to low BP. Discussed checking daily weights and to f/u with cardiology with more than 2-3 lbs weight gain in 24 hours. Discharged home with recommendations to f/u with our office in 1-2 weeks. Since discharge, patient's back pain is improving slowly. Today, described as 4/10 over his mid back. Also complaining of left posterior hip pain. Treating with lidocaine patches TID, Oxycodone at night, and Tylenol 500 mg QHS which does help. Has not needed tizanidine. No recurrent falls. Also states that he has some pain over the left lower anterior ribs with deep inspiration. Has been able to ambulate without assistance and has been able to use exercise bike. Checking daily weights as requested and weight has droppped from 173.8 to 169 this morning. Due for CMP today. Not checking BP at home. Denies lightheadedness/dizziness, chest pain, palpitations, SOB, LE edema. Patient has follow up appointment with cardiology in July for pacemaker/defibrillator check and again in August with Dr. Tineo. Past medical history, appointments, medications, allergies reviewed. Previous Medical History PAST MEDICAL HISTORY Diagnosis Date Anemia of chronic disease Atrial flutter (HCC) CAD (coronary artery disease) 2010 CABG x3, Seeing Dr. Tineo CKD (chronic kidney disease), stage III (HCC) Hiatal hernia with GERD 12/2016 UGI 01/10/17 at [facility] Hyperlipidemia Hypertension Inguinal hernia, bilateral Ischemic cardiomyopathy [...] on File Prior to Visit Medication Sig carvedilol (COREG) 6.25 mg tablet Take 1 tablet by mouth two times a day with meals. Ascorbic Acid 500 mg chew Take 500 mg by mouth once daily. cholecalciferol, vitamin [...] No weight loss, malaise or fevers RESPIRATORY: See HPI CARDIOVASCULAR: See HPI GI: No nausea, vomiting, or diarrhea SKIN: Negative for lesions, rash, and itching EXAM: BP 100/62 Pulse 70 Resp 16 Wt 80.5 kg (177 lb 7.2 oz) SpO2 96% BMI 25.46 kg/m? General Appearance: Well appearing, alert, in no acute distress, well-hydrated, well nourished.. Skin: Skin color, texture, turgor normal, no suspicious rashes or lesions. Back:no pain to palpation of vertebrae, good flexion and extension, good range of motion, reflexes are 2+ and symmetric, mo (more content not included)... [facility]10-28-2024 History of Present illness Narrative* Libertad Julio MD - 06/10/2024 9:40 AM EDT Chief Complaint Patient presents with: ER F/U: With back pain/generalized pain HPI Gabby Kearney is a 89 year old male who presents here today for Hospital Discharge Follow up. Accompanied today by his daughter Martha. Patient admitted to [facility] from 05/30 to 06/03 after presenting to the ER with intractable back pain after a fall from ladder, 2 steps up, onto concrete. Complained at that time of pleuritic pain in themid back with SOB. Found to be hypoxic at 87% on RA, requiring [address] chest, abdomen, and pelvis obtained which was negative for acute fractures or bleed, but did notes mild interstitial edema on the lungs with right mid lung nodule. Will need f/u CT based on Fleischner guidelines. BNP elevated at 384. CXR negative for infiltrate. CT brain unremarkable. Given lidocaine patch, tylenol, and oxycodone, muscle relaxants, and gabapentin for pain while inpatient. Hpoxia and pain improved during course of his hospital stay. Did not require oxygen on discharge. Echo obtained during stay with severe LV dysfunction and EF 25% with pulmonary artery pressure of 50 mmHg. Lasix dosage increased from 20 mg daily to BID and reduced Coreg to 3.125 mg BID due to low BP. Discussed checking daily weights and to f/u with cardiology with more than 2-3 lbs weight gain in 24 hours. Discharged home with recommendations to f/u with our office in 1-2 weeks. Since discharge, patient's back pain is improving slowly. Today, described as 4/10 over his mid back. Also complaining of left posterior hip pain. Treating with lidocaine patches TID, Oxycodone at night, and Tylenol 500 mg QHS which does help. Has not needed tizanidine. No recurrent falls. Also states that he has some pain over the left lower anterior ribs with deep inspiration. Has been able to ambulate without assistance and has been able to use exercise bike. Checking daily weights as requested and weight has droppped from 173.8 to 169 this morning. Due forCMP today. Not checking BP at home. Denies lightheadedness/dizziness, chest pain, palpitations, SOB, LE edema. Patient has follow up appointment with cardiology in July for pacemaker/defibrillator check andagain in August with Dr. Tineo. Past medical history, appointments, medications, allergies reviewed. Previous Medical History PAST MEDICAL HISTORY Diagnosis Date Anemia of chronic disease Atrial flutter (HCC) CAD (coronary artery disease) 2010 CABG x3, Seeing Dr. Tineo CKD (chronic kidney disease), stage III (HCC) Hiatal hernia with GERD 12/2016 UGI 01/10/17 at [facility] Hyperlipidemia Hypertension Inguinal hernia, bilateral Ischemic cardiomyopathy [...] on File Prior to Visit Medication Sig carvedilol (COREG) 6.25 mg tablet Take 1 tablet by mouth two times a day with meals. Ascorbic Acid 500 mg chew Take 500 mg by mouth once daily. cholecalciferol, vitamin [...] No weight loss, malaise or fevers RESPIRATORY: See HPI CARDIOVASCULAR: See HPI GI: No nausea, vomiting, or diarrhea SKIN: Negative for lesions, rash, and itching EXAM: BP 100/62 Pulse 70 Resp 16 Wt 80.5 kg (177 lb 7.2 oz) SpO2 96% BMI 25.46 kg/m General Appearance: Well appearing, alert, in no acute distress, well-hydrated, well nourished.. Skin: Skin color, texture, turgor normal, no suspicious rashes or lesions. Back:no pain to palpation of vertebrae, good flexion and extension, good range of motion, reflexes are 2+ and symmetric, motor and sensory appear to be normal, no evidence of scoliosis. Positive for TTP over left lumbar paraspinal muscles. Lungs: Lungs clear to auscultation. No wheezing, rhonchi, rales.. Heart: RRR, 2/6 CHIN heard throughout. . Abdomen: Normal abdominal exam, Abdomen soft, non-tender. Bowel sounds normal. No masses, organomegaly. Extremities: No deformities, edema, skin discoloration, clubbing or cyanosis. Good capillary refill. . Musculoskeletal: TTP over left posterior hip with normal ambulation and ROM. Health Maintenance List Depression Screening Never done Anxiety Screening Never done RSV Vaccine(1 - 1-dose 75+ series) Never done Advance Directive Discussion Never done Influenza Vaccine(1) due on 02/10/2025 Covid-19 Vaccine( - 2023- season) due on 05/15/2025 LDL Cholesterol due on 12/03/2024 Diabetes Screening due on 05/15/2027 DTaP,Tdap,Td Vaccine(2 - Td or Tdap) due on 03/19/2028 Shingrix Vaccine Completed Pneumococcal Vaccine: 65+ Completed ASSESSMENT/PLAN: 1. Fall in home, subsequent encounter - ICD9: V58.89, E888.9, ICD10: W19.XXXD, Y92.009 (primary diagnosis) Fall from ladder with back injury. Pain gradually improving on current regimen. Discussed he shouldstay off of the ladder and have family help with these types of activity. Will obtain xray of his left hip today due to some pain on exam. Continue tylenol and lidocaine patches PRN. Red flags for re-assessment reviewed with patient in detail. - XR HIP GENERAL 3V PELV/AP/LAT LEFT 2. Acute hip pain, left - ICD9: 719.45, ICD10: M25.552 Obtain xray to rule out fracture. - XR HIP GENERAL 3V PELV/AP/LAT LEFT 3. Lung nodules - ICD9: 793.19, ICD10: R91.[address] chest 3 months for 9 mm nodule. - CT CHEST WO IVCON 4. Acute on chronic systolic congestive heart failure (HCC) - ICD9: 428.23, 428.0, ICD10: I50.23 Improving symptomatically on current regimen. Will recheck labs as ordered and call with results. F/u with cardiology. Check daily weights. Adhere to low sodium diet. - COMPREHENSIVE METABOLIC PANEL - NT PRO BNP 5. Coronary artery disease involving [place] heart without angina pectoris, unspecified vessel or lesion type - ICD9: 414.01, ICD10: I25.10 Improving symptomatically on current regimen. Will recheck labs as ordered and call with results. F/u with cardiology. Check daily weights. Adhere to low sodium diet. 6. Presence of combination internal cardiac defibrillator (ICD) and pacemaker - ICD9: V45.02, ICD10: Z95.810 Recommendations per cardiology. 7. Hypoxia - ICD9: 799.02, ICD10: R09.02 Resolved. 8. Stage 3a chronic kidney disease (HCC) - ICD9: 585.3, ICD10: N18.31 Recheck CMP. - Counseled on avoiding NSAIDs, adequate hydration - Counseled on low sodium diet 9. Primary hypertension - ICD9: 401.9, ICD10: I10 - Controlled - Continue current medications - Recommend home blood pressure monitoring, to bring results to next visit - Encouraged sodium restriction, DASH or Mediterranean diet - Recommend regular aerobic exercise I spent a total of 40 minutes on the date of the service which included preparing to see the patient, [id number] patient care, completing clinical documentation, obtaining and/or reviewing separately obtained history, performing a medically appropriate examination, counseling and educating the pat ient/family/caregiver, and ordering medications, tests, or procedures. Libertad Julio MD documented in this encounterWay[facility]10-04-2024 Telephone encounter Note * Telephone Encounter - Torrie Manriquez RN - 05/17/2024 4:47 PM EDT Patient calls and notified of results and providers instructions. Patient verbalizes understanding. Torrie Manriquez RN [facility]10-04-2024 Miscellaneous Notes* Telephone Encounter - Torrie Manriquez RN - 05/17/2024 4:47 PM EDT Patient calls and notified of results and providers instructions. Patient verbalizes understanding. Torrie Manriquez RN * Telephone Encounter - Donna Alvarez LPN - 05/16/2024 11:28 AM EDT Left a message for pt to call the office and ask to speak to a nurse. Donna Alvarez LPN * Telephone Encounter - Donna Alvarez LPN - 05/16/2024 11:27 AM EDT ----- Message from Libertad Julio MD sent at 05/16/2024 10:31 AM EDT ----- Stable CKD. Recommend low sodium diet <2,000 mg per day, avoidance of NSAIDs, and increased water intake. Other labs normal. No change in regimen. documented in this encounterWay[facility]10-03-2024 Telephone encounter Note * Telephone Encounter - Donna Alvarez LPN - 05/16/2024 11:28 AM EDT Left a message for pt to call the office and ask to speak to a nurse. Donna Alvarez LPN [facility]10-03-2024 Telephone encounter Note* Telephone Encounter - Donna Alvarez LPN - 05/16/2024 11:27 AM EDT ----- Message from Libertad Julio MD sent at 05/16/2024 10:31 AM EDT ----- Stable CKD. Recommend low sodium diet <2,000 mg per day, avoidance of NSAIDs, and increased water intake. Other labs normal. No change in regimen. [facility]10-[facility] History of Present illness Narrative* Romina Lozano APRN.MEDICAL REFERRAL COORDINATOR - 05/15/2024 8:20 AM EDT 05/14/2024 Patient presents with: F/U 6 months SUBJECTIVE: This is a 89 year old that is here today for Above Complaints. Since last office visit has been in good health without ER visits or hospitalizations CAD s/pCABG/Atrial Fib/ICD: follows with [facility] cardiology with last appointment months ago per patient. With nexy follow-up in 7 months. No medication changes at that time. ICD changed on 10/17/2023. Taking medications as prescribed. Denies bleeding symptoms, SOB, dyspnea, chest pain, palpitations orleg swelling HTN: Patient is compliant with meds Yes Monitors bp at home: No. Denies side effects: Yes. Chest pain: No. Dyspnea: No. Edema: No. Palpitations: No. Syncope: No. Headache: No. Dizziness: No. CKD: tries to eat low salt diet and avoid NSAID products PAST MEDICAL HISTORY Diagnosis Date Anemia of chronic disease Atrial flutter (HCC) CAD (coronary artery disease) 2010 CABG x3, Seeing Dr. Tineo CKD (chronic kidney disease), stage III (HCC) Hiatal hernia with GERD 12/2016 UGI 01/10/17 at [facility] Hyperlipidemia Hypertension Inguinal hernia, bilateral Ischemic cardiomyopathy 06/2021 Pacemaker Perforated bowel (HCC) 06/2021 Pneumonia Presence of combination internal cardiac defibrillator (ICD) and pacemaker 2010 Refusal of statin medication by patient TIA (transient ischemic attack) 2017 ALLERGIES Patient has no known allergies. MEDICATIONS Current Outpatient Medications Medication Sig carvedilol (COREG) 6.25 mg tablet Take 1 tablet by mouth two times a day with meals. Ascorbic Acid 500 mg chew Take 500 mg by mouth once daily. cholecalciferol, vitamin D3, (VITAMIN D3 ORAL) Take 1 tablet by mouth once daily. apixaban (ELIQUIS) 2.5 mg tab tab(s) Take 1 tablet by mouth twice daily. No current facility-administered medications for this visit. Medications and allergies reviewed by this provider. SOCIAL HISTORY Social History Tobacco Use Smoking status: Never Smokeless tobacco: Never Tobacco comments: Father smoked occasional cigar. 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 Substance Use Topics Alcohol use: No Drug use: No REVIEW OF SYSTEMS All other reviewed and negative other than HPI. OBJECTIVE: BP 98/60 Pulse (!) 59 Resp 18 Wt 79.6 kg (175 lb 7.8 oz) SpO2 94% BMI 25.18 kg/m . Vital signs reviewed by this provider. APPEARANCE Well appearing, alert, in no acute distress, well-hydrated, well nourished. EYES conjunctiva and sclera normal. HEART RRR with normal S1 and S2, no murmurs, no gallops, no JVD appreciated LUNG clear to auscultation. No wheezes, rhonchi or rales EXTREMITIES Extremities normal, No deformities, No skin discoloration, and No edema SKIN Skin color, texture, turgor normal, no suspicious rashes or lesions to exposed skin Latest Ref [facility] 12/04/2023 Protein, Total 6.3 - 8.0 g/dL 7.6 Albumin 3.9 - 4.9 g/dL 4.0 Calcium 8.5 - 10.2 mg/dL 9.5 Bilirubin, Total 0.2 - 1.3 mg/dL 0.6 Alkaline Phosphatase 38 - 113 U/L 68 AST 14 - 40 U/L 31 ALT 10 - 54 U/L 31 Glucose 74 - 99 mg/dL 106 (H) BUN 9 - 24 mg/dL 31 (H) Creatinine 0.73 - 1.22 mg/dL 1.73 (H) Sodium 136 - 144 mmol/L 140 Potassium 3.7 - 5.1 mmol/L 4.9 Chloride 97 - 105 mmol/L 104 CO2 22 - 30 mmol/L 27 Anion Gap 9 - 18 mmol/L 9 eGFR >=60 mL/min/1.73m 38 (L) Cholesterol, Total <200 mg/dL 144 Triglyceride <150 mg/dL 102 HDL Cholesterol >39 mg/dL 49 Non HDL Cholesterol <130 mg/dL 95 Fasting Time hrs 14 VLDL Cholesterol <30 mg/dL 20 TC:HDL Ratio <5.10 2.94 LDL Cholesterol <100 mg/dL 75 LDL:HDL Ratio <2.54 1.53 Depression Screening Never done Anxiety Screening Never done RSV Vaccine(1 - 1-dose 75+ series) Never done Advance Directive Discussion Never done Influenza Vaccine(1) due on 02/10/2025 Covid-19 Vaccine( - 2023- season) due on 05/15/2025 LDL Cholesterol due on 12/03/2024 Diabetes Screening due on 12/03/2026 DTaP,Tdap,Td Vaccine(2 - Td or Tdap) due on 03/19/2028 Shingrix Vaccine Completed Pneumococcal Vaccine: 65+ Completed ASSESSMENT/PLAN: 1. Primary hypertension - ICD9: 401.9, ICD10: I10 (primary diagnosis) - Controlled - Continue current medications - Recommend home blood pressure monitoring, to bring results to next visit - Encouraged sodium restriction, DASH or Mediterranean diet - Recommend regular aerobic exercise - Follow up in 6 months for hypertension visit 2. Stage 3b chronic kidney disease (HCC) - ICD9: 585.3, ICD10: N18.32 - eGFR: 38 Due for labs - Counseled on avoiding NSAIDs, adequate hydration - Counseled on low sodium diet - COMPREHENSIVE METABOLIC PANEL - COMPLETE BLOOD COUNT AND DIFFERENTIAL - follow-up in 6 months sooner if needed 3. Coronary artery disease involving [place] heart without angina pectoris, unspecified vessel or lesion type - ICD9: 414.01, ICD10: I25.10 -stable on current regime - ECG COMPLETE - follow-up with cardiology as recommended 4. Hyperlipidemia, unspecified hyperlipidemia type - ICD9: 272.4, ICD10: E78.5 - Controlled - Continue current medications - Counseled on healthy diet and regular exercise - Follow up in 6 months, sooner should any other issues arise. Romina Podlogar, HYDROTREATER OPERATOR.MEDICAL REFERRAL COORDINATOR Prescription instructions reviewed with patient as applicable. Patient advised if symptoms do not improve or if symptoms worsen sooner, to contact their primary care physician. Potential red flag symptoms discussed with the patient. Reviewed appropriate action plan to take if red flag symptoms occur. Patient agreeable to treatment plan. documented in this encounterWayne [facility]10-02-2024 NoteHNO ID: [id number] Author: ROMINA LOZANO APRN.CASPER Service: ? Author Type: Nurse Practitioner Type: Progress Notes Filed: 05/15/2024 09:01 Note Text: 05/14/2024 Patient presents with: F/U 6 months SUBJECTIVE: This is a 89 year old that is here today for Above Complaints. Since last office visit has been in good health without ER visits or hospitalizations CAD s/pCABG/Atrial Fib/ICD: follows with [facility] cardiology with last appointment months ago per patient. With nexy follow-up in 7 months. No medication changes at that time. ICD changed on 10/17/2023. Taking medications as prescribed. Denies bleeding symptoms, SOB, dyspnea, chest pain, palpitations or leg swelling HTN: Patient is compliant with meds Yes Monitors bp at home: No. Denies side effects: Yes. Chest pain: No. Dyspnea: No. Edema: No. Palpitations: No. Syncope: No. Headache: No. Dizziness: No. CKD: tries to eat low salt diet and avoid NSAID products PAST MEDICAL HISTORY Diagnosis Date Anemia of chronic disease Atrial flutter (HCC) CAD (coronary artery disease) 2010 CABG x3, Seeing Dr. Tineo CKD (chronic kidney disease), stage III (HCC) Hiatal hernia with GERD 12/2016 UGI 01/10/17 at [facility] Hyperlipidemia Hypertension Inguinal hernia, bilateral Ischemic cardiomyopathy 06/2021 Pacemaker Perforated bowel (HCC) 06/2021 Pneumonia Presence of combination internal cardiac defibrillator (ICD) and pacemaker 2010 Refusal of statin medication by patient TIA (transient ischemic attack) 2017 ALLERGIES Patient has no known allergies. MEDICATIONS Current Outpatient Medications Medication Sig carvedilol (COREG) 6.25 mg tablet Take 1 tablet by mouth two times a day with meals. Ascorbic Acid 500 mg chew Take 500 mg by mouth once daily. cholecalciferol, vitamin D3, (VITAMIN D3 ORAL) Take 1 tablet by mouth once daily. apixaban (ELIQUIS) 2.5 mg tab tab(s) Take 1 tablet by mouth twice daily. No current facility-administered medications for this visit. Medications and allergies reviewed by this provider. SOCIAL HISTORY Social History Tobacco Use Smoking status: Never Smokeless tobacco: Never Tobacco comments: Father smoked occasional cigar. 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 Substance Use Topics Alcohol use: No Drug use: No REVIEW OF SYSTEMS All other reviewed and negative other than HPI. OBJECTIVE: BP 98/60 Pulse (!) 59 Resp 18 Wt 79.6 kg (175 lb 7.8 oz) SpO2 94% BMI 25.18 kg/m? . Vital signs reviewed by this provider. APPEARANCE Well appearing, alert, in no acute distress, well-hydrated, well nourished. EYES conjunctiva and sclera normal. HEART RRR with normal S1 and S2, no murmurs, no gallops, no JVD appreciated LUNG clear to auscultation. No wheezes, rhonchi or rales EXTREMITIES Extremities normal, No deformities, No skin discoloration, and No edema SKIN Skin color, texture, turgor normal, no suspicious rashes or lesions to exposed skin Latest Ref Rn 12/04/2023 Protein, Total 6.3 - 8.0 g/dL 7.6 Albumin 3.9 - 4.9 g/dL 4.0 Calcium 8.5 - 10.2 mg/dL 9.5 Bilirubin, Total 0.2 - 1.3 mg/dL 0.6 Alkaline Phosphatase 38 - 113 U/L 68 AST 14 - 40 U/L 31 ALT 10 - 54 U/L 31 Glucose 74 - 99 mg/dL 106 (H) BUN 9 - 24 mg/dL 31 (H) Creatinine 0.73 - 1.22 mg/dL 1.73 (H) Sodium 136 - 144 mmol/L 140 Potassium 3.7 - 5.1 mmol/L 4.9 Chloride 97 - 105 mmol/L 104 CO2 22 - 30 mmol/L 27 Anion Gap 9 - 18 mmol/L 9 eGFR >=60 mL/min/1.73m? 38 (L) Cholesterol, Total <200 mg/dL 144 Triglyceride <150 mg/dL 102 HDL Cholesterol >39 mg/dL 49 Non HDL Cholesterol <130 mg/dL 95 Fasting Time hrs 14 VLDL Cholesterol <30 mg/dL 20 TC:HDL Ratio <5.10 2.94 LDL Cholesterol <100 mg/dL 75 LDL:HDL Ratio <2.54 1.53 Depression Screening Never done Anxiety Screening Never done RSV Vaccine(1 - 1-dose 75+ series) Never done Advance Directive Discussion Never done Influenza Vaccine(1) due on 02/10/2025 Covid-19 Vaccine(1 - season) due on 05/15/2025 LDL Cholesterol due on 12/03/2024 Diabetes Screening due on 12/03/2026 DTaP,Tdap,Td Vaccine(2 - Td or Tdap) due on 03/19/2028 Shingrix Vaccine Completed Pneumococcal Vaccine: 65+ Completed ASSESSMENT/PLAN: 1. Primary hypertension - ICD9: 401.9, ICD10: I10 (primary diagnosis) - Controlled - Continue current medications - Recommend home blood pressure monitoring, to bring results to next visit - Encouraged sodium restriction, DASH or Mediterranean diet - Recommend regular aerobic exercise - Follow up in 6 months for hypertension visit 2. Stage 3b chronic kidney disease (HCC) - ICD9: 585.3, ICD10: N18.32 - eGFR: 38 Due for labs - Counseled on avoiding NSAIDs, adequate hydration - Counseled on low sodium diet - COMPREHENSIVE METABOLIC PANEL - COMPLETE BLOOD COUNT AND DIFFERENTIAL - follow-up in 6 months sooner if needed 3. Coronary artery disease involving [place] heart without angina pectoris, unsp (more content not included)...[facility]07-10-2024 History of Present illness Narrative* Angy Patel - 02/21/2024 1:26 PM EDT POPULATION HEALTH NAVIGATION OUTREACH Action/ Patient Outreach- Patient provided the information that the CONSULT TO ORTHOPAEDICS- Olecranon bursitis of left elbow [M70.22] is not needed at this time, his arm is feeling better. Reason for Outreach Care Gap/HCC or Scheduling Wellness Visits Care Gaps due: DAMARIS Patient Contacted: Spoke to patient/parent/or legal guardian Patient identified by name and : Yes Care Gap/HCC/Scheduling Wellness actions taken: Patient declined: Doesn't feel it's necessary Navigation Signature: Angy Patel February 21, 2024 1:26 PM documented in this encounter[address]12-2024 Telephone encounter Note * Telephone Encounter - Yvonne Andrews RN - 01/24/2024 8:05 AM EDT Patient calling in and requesting PCP office visit note from yesterday be faxed to General Surgery provider at [facility], Dr. Earl at FAX #: [phone]. Faxed as requested. Yvonne Andrews RN [facility]06-12-2024 Miscellaneous Notes* Telephone Encounter - Yvonne Andrews RN - 01/24/2024 8:05 AM EDT Patient calling in and requesting PCP office visit note from yesterday be faxed to General Surgery provider at [facility], Dr. Earl at FAX #: [phone]. Faxed as requested. Yvonne Andrews RN documented in this encounterWayne Healthcare [facility] Campus06-11-2024 Instructions* Patient Instructions* Libertad Julio MD - 01/23/2024 8:51 AM EDT Please ice your left elbow 15-20 minutes up to 3-4 times per day for bursitis. I would recommend wearing a neoprene sleeve during the day and avoid putting pressure on this area. If not improving, please follow up with the orthopedic surgeon. documented in this encounterWayne Healthcare Main Campus06-11-2024 History of Present illness Narrative* Libertad Julio MD - 01/23/2024 8:45 AM EDT Chief Complaint Patient presents with: elbow issue: Area present for approx 1 month no pain. Patient seen in ER when 1st developed. HPI Gabby Kearney is a 88 year old male who presents here today for Above Complaints. Patient here today with complaint of swelling over his left elbow which started after he was mowingwith his elbow on the arm rest. Evaluated at [facility] ED for this on 12/10 and was diagnosed with olecranon bursitis. No sign of infection at that time. Told to hold his Eliquis for 1-2 days and then follow up with our office. States that the swelling has improved, but not resolved. Was icing 3 times per day and swelling almost resolved, but came back again when he stopped. Has not had new injury and does not rest his arm anymore when mowing. Past medical history, appointments, medications, allergies reviewed. Previous Medical History PAST MEDICAL HISTORY Diagnosis Date Anemia of chronic disease Atrial flutter (HCC) CAD (coronary artery disease) 2010 CABG x3, Seeing Dr. Tineo CKD (chronic kidney disease), stage III (HCC) Hiatal hernia with GERD 12/2016 UGI 01/10/17 at [facility] Hyperlipidemia Hypertension Inguinal hernia, bilateral Ischemic cardiomyopathy [...] on File Prior to Visit Medication Sig carvedilol (COREG) 6.25 mg tablet Take 1 tablet by mouth two times a day with meals. Ascorbic Acid 500 mg chew Take 500 mg by mouth once daily. cholecalciferol, vitamin [...] GENERAL: No weight loss, malaise or fevers SKIN: See HPI EXAM: BP 110/74 Pulse 83 Temp 36.4 C (97.5 F) Resp 18 Wt 82 kg (180 lb 12.8 oz) SpO2 96% BMI 25.94 kg/m General Appearance: Well appearing, alert, in no acute distress, well-hydrated, well nourished.. Skin: Skin color, texture, turgor normal, no suspicious rashes or lesions. Musculoskeletal: Left olecranon bursitis about the size of an egg without erythema, TTP, or warmth to touch. Normal ROM of elbow. 5/5 strength. Health Maintenance List RSV Vaccine(1 - 1-dose 60+ series) Never done Covid-19 Vaccine(2022- season) Never done Advance Directive Discussion Never done Behavioral Health Screening Never done Influenza Vaccine(Season Ended) due on 04/14/2024 LDL Cholesterol due on 12/03/2024 Diabetes Screening due on 12/03/2026 DTaP,Tdap,Td Vaccine(2 - Td or Tdap) due on 03/19/2028 Shingrix Vaccine Completed Pneumococcal Vaccine: 65+ Completed ASSESSMENT/PLAN: 1. Olecranon bursitis of left elbow - ICD9: 726.33, ICD10: M70.22 Improving but not resolved. Restart icing 3-4 times per day. Wear neoprene sleeve during the day and avoid putting pressure on the area. If not improving, will have him f/u with ortho for steroid injection vs surgical excision. Medical Decision Making: Problems: Low: Stable chronic illness Data: Unique source(s) for external note(s) reviewed: 1 Risk: Low: Low risk from testing/treatment Medical Decision Making Level: 3 - Low - CONSULT TO ORTHOPAEDICS Libertad Julio MD documented in this encounterWayne Healthcare [facility] Campus04-30-2024 Telephone encounter Note * Telephone Encounter - Yanira Rueda LPN - 12/12/2023 5:50 PM EDT Phoned patient and spoke with him regarding scheduling ER follow up appointment. Patient stated They told me a week. So I will call back in a week. Offered to schedule today for a week later and patient declined. [facility]04-30-2024 Miscellaneous Notes* Telephone Encounter - Yanira Rueda LPN - 12/12/2023 5:50 PM EDT Phoned patient and spoke with him regarding scheduling ER follow up appointment. Patient stated They told me a week. So I will call back in a week. Offered to schedule today for a week later and patient declined. documented in this encounterWayne Healthcare [facility] Campus04-23-2024 Telephone encounter Note * Telephone Encounter - Gladys Ontiveros LPN - 12/05/2023 2:42 PM EDT Patient notified of results and recommendations below. Voices understanding. Gladys Ontiveros LPN [facility]04-23-2024 Miscellaneous Notes* Telephone Encounter - Gladys Ontiveros LPN - 12/05/2023 2:42 PM EDT Patient notified of results and recommendations below. Voices understanding. Gladys Ontiveros LPN * Telephone Encounter - Gladys Ontiveros LPN - 12/05/2023 8:11 AM EDT ----- Message from Romina Lozano APRN.MEDICAL REFERRAL COORDINATOR sent at 12/05/2023 7:21 AM EDT ----- Kidney function is stable- continue low salt diet, avoidance of NSAID products and stay well hydrated with water. The rest of his blood work is within acceptable ranges. Romina Lozano APRN.MEDICAL REFERRAL COORDINATOR documented in this encounterWayne Healthcare [facility] Campus04-23-2024 Telephone encounter Note * Telephone Encounter - Gladys Ontiveros LPN - 12/05/2023 8:11 AM EDT ----- Message from Romina Lozano APRN.CNP sent at 12/05/2023 7:21 AM EDT ----- Kidney function is stable- continue low salt diet, avoidance of NSAID products and stay well hydrated with water. The rest of his blood work is within acceptable ranges. Romina Lozano APRN.CNP [facility]04-02-2024 Instructions* Patient Instructions* Romina Lozano APRN.CNP - 11/14/2023 9:18 AM EDT Come back on December 03 and get your blood checked documented in this encounterWayne Healthcare Main Campus04-02-2024 History of Present illness Narrative* Romina Lozano APRN.CNP - 11/14/2023 9:00 AM EDT 11/13/2023 Patient presents with: Annual SUBJECTIVE: This is a 88 year old that is here today for Above Complaints. Since last office visit has been in good health without ER visits or hospitalizations CAD s/pCABG/Atrial Fib/ICD: follows with [facility] cardiology with last appointment on 09/25/2023. No medication changes at that time. ICD changed on 10/17/2023. Taking medications as prescribed. Denies bleeding symptoms, SOB, dyspnea, chest pain, palpitations or leg swelling Reports blood work completed the other day and cardiology called and told him to stop his lasix HTN: Patient is compliant with meds Yes Monitors bp at home: No. Denies side effects: Yes. Chest pain: No. Dyspnea: No. Edema: No. Palpitations: No. Syncope: No. Headache: No. Dizziness: No. CKD: tries to eat low salt diet and avoids NSAID products. Recent results from [facility] reviewed with patient PAST MEDICAL HISTORY Diagnosis Date Anemia of chronic disease Atrial flutter (HCC) CAD (coronary artery disease) 2011 CABG x3, Seeing Dr. Tineo CKD (chronic kidney disease), stage III (HCC) Hiatal hernia with GERD 12/2016 UGI 01/10/17 at [facility] Hyperlipidemia Hypertension Inguinal hernia, bilateral Ischemic cardiomyopathy 06/2021 Pacemaker Perforated bowel (HCC) 06/2021 Pneumonia Presence of combination internal cardiac defibrillator (ICD) and pacemaker 2010 Refusal of statin medication by patient TIA (transient ischemic attack) 2017 ALLERGIES Patient has no known allergies. MEDICATIONS Current Outpatient Medications Medication Sig carvedilol (COREG) 6.25 mg tablet Take 1 tablet by mouth two times a day with meals. rOPINIRole (REQUIP) 0.25 mg tablet Take 1 tablet by mouth at bedtime as needed (to be used as needed for restless leg symptoms). Ascorbic Acid 500 mg chew Take 500 mg by mouth once daily. tamsulosin (FLOMAX) 0.4 mg Take 0.4 mg by mouth once daily. cholecalciferol, vitamin D3, (VITAMIN D3 ORAL) Take 1 tablet by mouth once daily. apixaban (ELIQUIS) 2.5 mg tab tab(s) Take 1 tablet by mouth twice daily. No current facility-administered medications for this visit. Medications and allergies reviewed by this provider. SOCIAL HISTORY Social History Tobacco Use Smoking status: Never Smokeless tobacco: Never Tobacco comments: Father smoked occasional cigar. 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 Substance Use Topics Alcohol use: No Drug use: No REVIEW OF SYSTEMS All other reviewed and negative other than HPI. OBJECTIVE: BP 94/68 Pulse 62 Resp 18 Wt 82.9 kg (182 lb 12.8 oz) SpO2 97% BMI 26.23 kg/m . Vital signs reviewed by this provider. APPEARANCE Well appearing, alert, in no acute distress, well-hydrated, well nourished. EYES conjunctiva and sclera normal. HEART RRR with normal S1 and S2, no murmurs, no gallops, no JVD appreciated LUNG clear to auscultation. No wheezes, rhonchi or rales EXTREMITIES Extremities normal, No deformities, No skin discoloration, and No edema SKIN Skin color, texture, turgor normal, no suspicious rashes or lesions to exposed skin RSV Vaccine(1 - 1-dose 60+ series) Never done LDL Cholesterol due on 10/11/2022 Covid-19 Vaccine(2022- season) Never done Advance Directive Discussion Never done Influenza Vaccine(Season Ended) due on 04/14/2024 Diabetes Screening due on 04/11/2025 DTaP,Tdap,Td Vaccine(2 - Td or Tdap) due on 03/19/2028 Depression Assessment Completed Shingrix Vaccine Completed Pneumococcal Vaccine: 65+ Completed ASSESSMENT/PLAN: 1. Primary hypertension - ICD9: 401.9, ICD10: I10 (primary diagnosis) - Controlled - Continue current medications - Recommend home blood pressure monitoring, to bring results to next visit - Encouraged sodium restriction, DASH or Mediterranean diet - Recommend regular aerobic exercise - Follow up in 6 months for hypertension visit 2. Atrial flutter, unspecified type (HCC) - ICD9: 427.32, ICD10: I48.92 - controlled on current regime - follow-up with cardiology as recommended 3. Stage 3b chronic kidney disease (HCC) - ICD9: 585.3, ICD10: N18.32 - eGFR: Worsening - Counseled on avoiding NSAIDs, adequate hydration - Counseled on low sodium diet - recheck in one month- may consider referral to kidney medicine - COMP METABOLIC PANEL 4. Hyperlipidemia, unspecified hyperlipidemia type - ICD9: 272.4, ICD10: E78.5 - Control undetermined, due for labs - Continue current medications - Counseled on healthy diet and regular exercise - Follow up in 6 months, sooner should any other issues arise. - LIPID PANEL BASIC 5. Screening for depression - ICD9: V79.0, ICD10: Z13.31 - DEPRESSION SCREENING/ASSESSMENT 6. Coronary artery disease involving [place] heart without angina pectoris, unspecified vessel or lesion type - ICD9: 414.01, ICD10: I25.10 - continue current medications - follow-up with cardiology as recommended Romina Lozano, AMADEO.MEDICAL REFERRAL COORDINATOR Prescription instructions reviewed with patient as applicable. Patient advised if symptoms do not improve or if symptoms worsen sooner, to contact their primary care physician. Potential red flag symptoms discussed with the patient. Reviewed appropriate action plan to take if red flag symptoms occur. Patient agreeable to treatment plan. Medical Decision Making: Problems: Moderate: 2+ stable chronic illnesses Risk: Moderate: Moderate risk from testing/treatment Medical Decision Making Level: 4 - Moderate documented in this encounterWayne Healthcare [facility] Campus03-05-2024 Procedure [facility]03-04-2024 Miscellaneous Notes* Telephone Encounter - Caterina Hampton Ma - 10/16/2023 12:10 PM EST Pt notified. Appt made. Caterina Hampton Ma * Telephone Encounter - Romina Lozano APRN.CNP - 10/16/2023 11:46 AM EST Patient is due for office appointment. Please assist in scheduling Romina Lozano APRN.CNP * Telephone Encounter - Mala Loomis - 10/13/2023 1:13 PM EST Pharmacy verified in [facility] Patient has been identified by name and [...] 3.2 oz) Not applicable Please advise. Mala Koo documented in this encounterWayne Healthcare Main Campus05-01-2023 Hospital Discharge instructions Additional Instructions Please wear the Wolf wrap to help with the swelling of your knee. Take Tylenol for pain. You may use heat to the knee as well. Your x-ray does show fluid on the knee as well as moderate osteoarthritis of the knee. Please follow-up with orthopedics.[facility] Work Phone: 1(731) 561-315901-30-2023 History of Present illness Narrative* Libertad Julio MD - 09/12/2022 3:37 PM EST Chief Complaint Patient presents with: Pain: Both legs experiencing burning from knees down for 3 nights. Says he takes covers off and it subsides. HPI Gabby Kearney is a 87 year old male who [...] Tineo CKD (chronic kidney disease), stage III ([facility]) Hiatal hernia with GERD 12/2016 UGI 01/10/17 at [facility] Hyperlipidemia Hypertension Inguinal hernia, bilateral Ischemic cardiomyopathy [...] MD Libertad Ayala MD documented in this encounterWayne Healthcare [facility] Campus08-29-2022 History of Present illness Narrative* Libertad Julio MD - 04/11/2022 8:48 AM EDT Chief Complaint Patient presents with: Follow Up: 6 month HPI Gabby Kearney is a 87 year old male who [...] working well on last check. States that [facility] [...] with GERD 12/2016 UGI 01/10/17 at [facility] Hyperlipidemia Hypertension Inguinal hernia, bilateral Ischemic cardiomyopathy [...] Abs Lymph 1.00 - 4.00 k/uL 2.50 Kearney% % 11.7 Abs Kearney <0.87 k/uL 0.77 Eosin% % 1.7 Abs [...] 31.7 ASSESSMENT/PLAN: 1. Coronary artery disease involving [place] heart without angina pectoris, unspecified vessel or [...] risks. Libertad Julio MD documented in this encounterWayne Healthcare [facility] Campus06-23-2022 Miscellaneous Notes* Telephone Encounter - Yvonne Andrews RN - 02/03/2022 1:33 PM EDT Patient returned call and given provider's message below and patient verbalized understanding. Marlee Andrews RN * Telephone Encounter - Steffany Coles LPN - 02/03/2022 1:14 PM EDT Left message to return call * Telephone Encounter - Steffany Coles LPN - 02/03/2022 1:12 PM EDT ----- Message from Libertad Julio MD sent at 02/03/2022 11:41 AM EDT ----- CT scan shows emphysema with stable subcentimeter nodules. Each <3 mm. No new nodules noted. Without other risk factors for lung cancer, would not recommend follow up at this time. documented in this encounterWayne Healthcare [facility] Campus06-22-2022 History of Present illness Narrative* Loreta Dennison, RT(R) - 02/02/2022 8:00 AM EDT Radiology Service Progress Note PATIENT NAME: Gabby Kearney DATE OF SERVICE: February 02, 2022 TIME: 1:38 PM PATIENT IDENTITY VERIFICATION COMPLETED USING TWO (2) IDENTIFIERS: Name and Date of confirmedby patient verbally. FALL SCREENING: Has the patient [...] 02, 2022 1:38 PM documented in this encounterWayne Healthcare [facility] Campus06-07-2022 History of Present illness Narrative* Larisa Holt RT(R) - 01/18/2022 8:50 AM EDT Radiology Service Progress Note PATIENT NAME: Gabby Kearney DATE OF SERVICE: January 18, 2022 TIME: 8:47 AM PATIENT IDENTITY VERIFICATION COMPLETED USING TWO (2) IDENTIFIERS: Name and Date of confirmedby patient verbally. FALL SCREENING: Has the patient [...] RT Angelica(R) January 18, 2022 8:47 AM documented in this encounterWayne Healthcare [facility] Campus06-07-2022 History of Present illness Narrative* Romina Lozano APRN.MEDICAL REFERRAL COORDINATOR - 01/18/2022 8:22 AM EDT 01/18/2022 Patient presents with: Coughing Up Blood: x1 year on and off SUBJECTIVE: This is a 86 year old that is here today for Above Complaints. For the last year has been spitting up blood intermittently. Aggravated by activity. He has been oneliquis for some years. 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 PAST MEDICAL HISTORY Diagnosis Date Anemia of chronic disease Atrial flutter (HCC) CAD (coronary artery disease) 2010 CABG x3, Seeing Dr. Tineo CKD (chronic kidney disease), stage III (HCC) Hiatal hernia with GERD 12/2016 UGI 01/10/17 at [facility] Hyperlipidemia Hypertension Inguinal hernia, bilateral Ischemic cardiomyopathy [...] agreeable to treatment plan. [facility] Miscellaneous Notes* Telephone Encounter - Romina Lozano APRN.CNP - 01/18/2022 7:32 AM EDT Reviewed. Romina Lozano APRN.CNP * Telephone Encounter - Elisa Ashford RN - 01/17/2022 6:53 PM EDT Triaged patient for complaint of spitting up blood for which he scheduled an appointment. He deniescough/vomiting. States this started about 6-8 months ago. Occurs intermittently with activiity. Resolves with rest. He spits up blood tinged clear whitish mucous that varies with the amount of blood present. Sometimes flecks, sometimes a tablespoon of red blood. He does not have any other symptoms.Denies chest pain, SOB, dizziness, lightheadedness. Does not [...] No travel history Protocols used: COUGHING UP [id number] documented in [facility]22 Miscellaneous Notes* Telephone Encounter - Romina Lozano APRN.CNP - 01/17/2022 4:30 PM EDT Can we please triage this man for complaints of spitting up blood. Is he coughing it up or vomitingit up? Thanks, Romina Lozano APRN.CNP documented in this [facility]-2022 Miscellaneous Notes* Telephone Encounter - Libertad Julio MD - 10/15/2021 10:27 AM EST Reviewed. * Telephone Encounter - Gladys Ontiveros LPN - 10/15/2021 9:52 AM EST Patient called and given message below. Declines Lipitor at this time. Will be in in 2-4 weeks for labs. Agreeable to increasing fluid intake. Gladys Ontiveros LPN * Telephone Encounter - Libertad Julio MD - 10/14/2021 3:21 PM EST Lab show improving anemia with worsening CKD [...] pharmacy if patient agreeable. 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 Presence of implantable cardioverter-defibrillator (ICD) May 25, 2011 chronic H/O coronary artery bypass surgery November 24, 2010 resolved [facility] Work Phone: 1(273) 793-135803-08-2011 History of Past illness Narrative* Problem Noted Date Resolved Date Rectal bleeding 10/19/2010 09/15/2017 Pneumonia 10/31/2016 documented as of this encounter (statuses as of 01/18/2022) [facility] History of Past illness Narrative* Problem Noted Date Resolved Date Rectal bleeding 10/19/2010 09/15/2017 Pneumonia 10/31/2016 documented as of this encounter (statuses as of 01/19/2022) [address]08-2011 History of Past illness Narrative* Problem Noted Date Resolved Date Rectal bleeding 10/19/2010 09/15/2017 Pneumonia 10/31/2016 documented as of this encounter (statuses as of 02/03/2022) [facility] History of Past illness Narrative* Problem Noted Date Resolved Date Rectal bleeding 10/19/2010 09/15/2017 Pneumonia 10/31/2016 documented as of this encounter (statuses as of 02/03/2022) [facility] History of Past illness Narrative* Problem Noted Date Resolved Date Rectal bleeding 10/19/2010 09/15/2017 Pneumonia 10/31/2016 documented as of this encounter (statuses as of 03/02/2022) [facility] History of Past illness Narrative* Problem Noted Date Resolved Date Rectal bleeding 10/19/2010 09/15/2017 Pneumonia 10/31/2016 documented as of this encounter (statuses as of 03/04/2022) [facility] History of Past illness Narrative* Problem Noted Date Resolved Date Rectal bleeding 10/19/2010 09/15/2017 Pneumonia 10/31/2016 documented as of this encounter (statuses as of 04/11/2022) [facility] History of Past illness Narrative* Problem Noted Date Resolved Date Rectal bleeding 10/19/2010 09/15/2017 Pneumonia 10/31/2016 documented as of this encounter (statuses as of 09/13/2022) [facility] History of Past illness Narrative* Problem Noted Date Diagnosed Date Resolved Date Rectal bleeding 10/19/2010 09/15/2017 Pneumonia 10/31/2016 documented as of this encounter (statuses as of 10/16/2023) [facility] History of Past illness Narrative* Problem Noted Date Diagnosed Date Resolved Date Rectal bleeding 10/19/2010 09/15/2017 Pneumonia 10/31/2016 documented as of this encounter (statuses as of 11/14/2023) [facility] Author Kiki Zaidi [facility] Note Date/Time March 27, 2025 11 :[address] [place] [address] Medical Records Department [address] [place] [address] Emergency Department Summary 03/27/25 MR#: [id number] Acct: [id number] Name: GABBY KEARNEY Rep #:[id number] : 1935 89 From: Kiki Zaidi MD PCP: Dr. Aroldo Julio MD Status :REG ER Location: ED HPI History of Present Illness HPI Narrative: Patient is an 89-year-old male presenting emergency department after a fall. Patient has a past medical history as below. Patient states that he was outsideand he tripped on a piece of metal causing him to land into a wood pile on his left arm. He denies hitting his head or any loss of consciousness. Denies any neck or back pain. He was able to get up by himself. He is on Eliquis. Reports that he has skin tears to his left upper extremity. Daughter states shetried to clean them at home but then decided to bring him in for evaluation. Hedenies any other injuries. Chief Complaint: Laceration [facility] Medical History Olecranon bursitis, left elbow Left elbow pain Chondrocalcinosis of left knee Hypertension Wears glasses High cholesterol Injury of head and neck Cardiology follow-up encounter History of echocardiogram History of stress test Persistent atrial fibrillation Non-sustained ventricular tachycardia Secondary pulmonary arterial hypertension Transient ischemic attack Atherosclerotic heart disease of [place] coronary artery without angina pectoris Hyperlipidemia Ischemic cardiomyopathy Abnormal electrocardiogram [ECG] [EKG] Paroxysmal atrial fibrillation Encounter for long-term current use of high risk medication Palpitations CKD (chronic kidney disease) stage 3, GFR 30-59 ml/min Home Medications ?Medication ?Instructions ?Recorded ?Last Taken ?Type cholecalciferol (vitamin D3) 25 25 mcg PO DAILY VITAMI N SUPPLEMENT 12/19/19 Unknown History mcg (1,000 unit) capsule apixaban 2.5 mg tablet (Eliquis) 2.5 mg PO BID BLOOD T HINNER 05/07/21 10/16/23 History carvedilol 3.125 mg tablet (Coreg) 12.5 mg PO BID 04/07 Unknown History furosemide 20 mg tablet 20 mg PO BID 11/19/24 Unknow n History rosuvastatin 20 mg tablet 20 mg PO QDAY 01/02/25 Unkno wn History colchicine 0.6 mg tablet 0.6 mg PO DIRECTED #10 ta bs 02/06/25 Unknown Rx prednisone 50 mg tablet 50 mg PO QDAY #5 tabs Unknown Rx Allergy/AdvReac Type Severity Reaction Status Date / Time No Known Allergies Allergy Verified 03/27/25 10:00 Family History Father CAD (coronary artery disease), Onset Age: 55 Mother , unknown cause No problems noted. Brother CAD (coronary artery disease) History of coronary artery bypass graft x 3 Brother Cancer Brother Unknown whether patient has any health problems Brother , unknown causes No problems noted. Surgical History Hx of bilateral cataract extraction History of implantable cardiac defibrillator (ICD) Status post laparoscopic colectomy H/O coronary artery bypass surgery (11/24/10) History of umbilical hernia repair Presence of implantable cardioverter-defibrillator (ICD) (05/25/11) Social History household members: spouse Smoking Status: Never smoker alcohol intake: never substance use type: does not use caffeine: Yes Type: coffee Number of servings: 2 ROS ROS ED ROS Narrative see HPI EXAM Physical Exam Narrative Exam Narrative: Vital signs: Reviewed General: Alert and oriented. No acute distress HEENT: Head is normocephalic and atraumatic, sinuses nontender, pupils equal round and reactive. Nares are patent. Oropharynx and throat exams normal. Neck: Supple without lymphadenopathy nontender. No midline cervical spinal tenderness palpation. No step-offs or deformities. Cardiovascular: Regular rate and rhythm, no murmurs. No rubs or gallops. Normal S1 and S2. Chest wall is atraumatic and nontender to palpation. Respiratory: Clear to auscultation bilaterally. No wheezes, rales, rhonchi Abdominal: Soft and nontender. Normal bowel sounds. No guarding or rebound. Nonsurgical abdomen Extremities: No midline thoracic or lumbar spinal tenderness palpation. No step- offs deformities. Hips are stable and nontender to palpation. left elbow with skin tear, no active bleeding. Left dorsal forearm with skin tear as well. No active bleeding. No tenderness to palpation of the left shoulder, upper arm, elbow, forearm, wrist or hand. Extremities are otherwise atraumatic and nontender to palpation with normal range of motion. Skin: No rash or redness. Neurological: Cranial nerves II through XII are grossly intact. Normal strength and sensation. Normal cerebellar function The rest of the physical exam is unremarkable Const Vital Signs: 03/27/25 10:00 Temperature 98.0 F Temperature Source Oral Pulse Rate 89 Respiratory Rate 18 Blood Pressure 121/83 H Blood Pressure Mean 95 Pulse Ox 97 Oxygen Delivery Method Room Air MDM MDM MDM Narrative Medical decision making narrative: Patient is an 89-year-old male presenting to the emergency department for a skin tear after a fall. Patient was seen and examined. Vitals are stable. Patient resting bed comfortably no acute distress. It was a pure mechanical fall, states he tripped on a piece of metal. Denies any prodromal symptoms. No indication for labs or additional workup. He is unsure when his last tetanus vaccine was, updated here. Given he is on Eliquis and his age, CT of the brain and cervical spine were ordered. Will irrigate wound. Given his a skin tear, Steri-Strips and Dermabond will be used. Abdominal pad dressing applied over top. Patient has no tenderness to palpation of the extremities. With the skin tear I did offer xrays to rule out occult fracture however think this is unlikely with no pain and normal ROM, patient and daughter agree this is unnecessary at this time. Patient ambulated without difficulty. Given wound care instructions. CT brain shows no evidence of intracranial hemorrhage. CT cervical spine is negative for any acute traumatic abnormalities. Patient and daugther updated. All questions were answered. Patient discharged from the Emergency Department. I do not feel that the patient's evaluation reveals any acute reason for admission at this time. I instructed them to either follow-up with their primary care physician or promptly return to the Emergency Department for reevaluation should symptoms worsen or new symptoms develop. I explained what symptoms would indicate the need to return to the emergency department. Shared decision making was used. The patient voiced understanding of the treatment plan and is agreeable with it. Clinical impression: 1. fall 2. skin tear Discharge Plan Triage Chief Complaint: Laceration Other Complaint: Fall ED Provider: Kiki Zaidi Dx/Rx/DC Orders Instructions: ED Mechanical Fall, ED Skin Tear (Skin Avulsion) Prescriptions: No Action cholecalciferol (vitamin D3) 25 mcg (1,000 unit) capsule 25 mcg PO DAILY Eliquis 2.5 mg tablet 2.5 mg PO BID Patient Comments: LAST DOSE 11/07/21 furosemide 20 mg tablet 20 mg PO BID carvedilol [Coreg] 3.125 mg tablet 12.5 mg PO BID Rx Instructions: must administer with a meal/food rosuvastatin 20 mg tablet 20 mg PO QDAY colchicine 0.6 mg tablet 0.6 mg PO DIRECTED Qty: 10 0RF Rx Instructions: Take 1 tab day 1 then starting day take 1/2 tab daily as needed until the pain resolves. prednisone 50 mg tablet 50 mg PO QDAY Qty: 5 0RF Primary Care Provider: Aroldo Julio Referrals: Aroldo Julio MD [Primary Care Provider] - 2 Days Activity Restrictions/Additional Instructions: Your evaluation in the Emergency Department did not reveal any acute reason for admission. However, I want to emphasize that you may be early in the course of adisease process or illness even if it is not present. For this reason you shouldfollow-up within 24 hours for reevaluation with either your primary care physician or if necessary back here in the Emergency Department. You should return to the Emergency Department immediately if your symptoms worsen or new symptoms develop. Print Language: [place] Disposition Disposition: Home, Self Care What to do if you have Problems For any increased pain, shortness of breath, bleeding, nausea or vomiting, chestpain, or any unexpected problems, contact your Primary Care Provider. Call [facility] ([phone]) or report to the closest Emergency Room. Call 911 if necessary. 03/27/25 1130 <Electronically signed by Kiki Zaidi MD> Cosigner Signature (if applicable): CC: Dr. Aroldo Julio MD ~ Signed [facility] Work Phone: Evaluation note* Diagnosis Spitting up blood- Primary Hemoptysis, unspecified [facility]* Diagnosis Hemoptysis Hemoptysis, unspecified [facility]* Diagnosis Stage 3b chronic kidney disease (HCC)- Primary [facility]* Diagnosis Coronary artery disease involving [place] heart without angina pectoris, unspecified vessel or [...] of patient's decision [facility] Diagnosis Onset Date Resolution Status Persistent atrial fibrillation acute 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 Non-sustained ventricular tachycardia chronic Paroxysmal atrial fibrillation chronic Presence of implantable cardioverter-defibrillator (ICD) May 25, 2011 [facility] Work Phone: evaluation note* Diagnosis Onset Date Resolution Status Persistent atrial fibrillation acute 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 Non-sustained ventricular tachycardia chronic Paroxysmal atrial fibrillation chronic Presence of implantable cardioverter-defibrillator (ICD) May 25, 2011 chronic Persistent atrial fibrillation acute 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 Presence of implantable cardioverter-defibrillator (ICD) May 25, 2011 chronic H/O coronary artery bypass surgery November 24, 2010 [facility] Work Phone: Evaluation note* Diagnosis Leg pain, bilateral- Primary Pain in limb Atrial flutter, unspecified type (HCC) Chronic kidney disease, stage 3b (HCC) [facility]* Diagnosis Onset Date Resolution Status Persistent atrial fibrillation acute 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 Non-sustained ventricular tachycardia chronic Paroxysmal atrial fibrillation chronic Presence of implantable cardioverter-defibrillator (ICD) May 25, 2011 chronic Persistent atrial fibrillation acute 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 Non-sustained ventricular tachycardia chronic Paroxysmal atrial fibrillation chronic Presence of implantable cardioverter-defibrillator (ICD) May 25, 2011 chronic Persistent atrial fibrillation acute 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 Presence of implantable cardioverter-defibrillator (ICD) May 25, 2011 chronic H/O coronary artery bypass surgery November 24, 2010 resolved Persistent atrial fibrillation acute 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 Non-sustained ventricular tachycardia chronic Paroxysmal atrial fibrillation chronic Presence of implantable cardioverter-defibrillator (ICD) May 25, 2011 [facility] Work Phone: Evaluation note* Diagnosis Onset Date Resolution Status Persistent atrial fibrillation acute 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 Non-sustained ventricular tachycardia chronic Paroxysmal atrial fibrillation chronic Presence of implantable cardioverter-defibrillator (ICD) May 25, 2011 chronic Persistent atrial fibrillation acute 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 Presence of implantable cardioverter-defibrillator (ICD) May 25, 2011 chronic H/O coronary artery bypass surgery November 24, 2010 resolved Persistent atrial fibrillation acute 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 Non-sustained ventricular tachycardia chronic Paroxysmal atrial fibrillation chronic Presence of implantable cardioverter-defibrillator (ICD) May 25, 2011 chronic Persistent atrial fibrillation acute 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 Non-sustained ventricular tachycardia chronic Paroxysmal atrial fibrillation chronic Presence of implantable cardioverter-defibrillator (ICD) May 25, 2011 [facility] Work Phone: Evaluation note* Diagnosis Primary hypertension- Primary Unspecified essential hypertension Atrial flutter, unspecified type (HCC) Stage 3b chronic kidney disease (HCC) Hyperlipidemia, unspecified hyperlipidemia type Screening for depression Coronary artery disease involving [place] heart without angina pectoris, unspecified vessel or lesion type documented [facility]* Diagnosis Olecranon bursitis of left elbow- Primary Olecranon bursitis [facility]* Diagnosis Spitting up blood Hemoptysis, unspecified [facility] this [facility]* Diagnosis Primary hypertension- Primary Unspecified essential hypertension Stage 3b chronic kidney disease (HCC) Coronary artery disease involving [place] heart without angina pectoris, unspecified vessel or lesion type Hyperlipidemia, unspecified hyperlipidemia type [facility]* Diagnosis Fall in home, subsequent encounter Acute hip pain, left [facility]* Diagnosis Fall in home, subsequent encounter- Primary Acute hip pain, left Lung nodules Other nonspecific abnormal finding of lung field Acute on chronic systolic congestive heart failure (HCC) Acute on chronic systolic heart failure Coronary artery disease involving [place] heart without angina pectoris, unspecified vessel or lesion type Presence of combination internal cardiac defibrillator (ICD) and pacemaker Hypoxia Hypoxemia Stage 3a chronic kidney disease (HCC) Primary hypertension Unspecified essential hypertension Fall in home, subsequent encounter Acute hip pain, left [facility]* Diagnosis Lung nodules Other nonspecific abnormal finding of lung field [facility] Additional Instructions Ice your elbow for 15 minutes at a time a few times a day for the next few days. Hold your Eliquis for 2 days. Try to avoid resting your elbow on any hard surfaces.[facility] Work Phone: Hospital Discharge instructionsAdditional Instructions Your evaluation in the Emergency Department did not reveal any acute reason for admission. However, I want to emphasize that you may be early in the course of a disease process or illness even if it is not present. For this reason you should follow-up within 24 hours for reevaluation with either your primary care physician or if necessary back here in the Emergency Department. You should return to the Emergency Department immediately if your symptoms worsen or new symptoms develop.[facility] Work Phone: Reason for referral (narrative)* Outpatient Procedure (Routine) - New Request Specialty Diagnoses / Procedures Referred By Bertha mcwilliams Referred To Contact [facility] Diagnoses Coronary artery disease involving [place] heart without angina pectoris, unspecified vessel or lesion type Procedures ECG COMPLETE ECG ROUTINE ECG W/LEAST 12 LDS W/I&R Romina Lozano APRN.CNP [address] [place] [address] [facility] [address] [place] [address] Referral ID Status Reason Start Date Expiration Date Visits Requested Visits Authorized [id number] New Request Auto-Generat ed Referral 05/15/2024 05/15/2025 1 1 [facility] for referral (narrative)* Diagnostic Procedure Only (Urgent) - Closed Specialty Diagnoses / Procedures Referred By Bertha mcwilliams Referred To Contact XR IMAGING Diagnoses Fall in home, subsequent encounter Acute hip pain, left Procedures XR HIP GENERAL 3V PELV/AP/LAT LEFT RADEX HIP UNILATERAL WITH PELVIS 2-3 VIEWS Libertad Julio MD [address] [place] [address] [place] [address] Referral ID Status Reason Start Date Expiration Date V isits Requested Visits Authorized [id number] Closed Auto-Generate d Referral 06/10/2024 07/10/2025 1 1 [facility]No reason for referral information availablePort[facility] Work Phone: Reason for visit Narrative* Diagnostic Procedure Only (Urgent) - Closed Specialty Diagnoses / Procedures Referred By Contac t Referred To Contact XR IMAGING Diagnoses Fall in home, subsequent encounter Acute hip pain, left Procedures XR HIP GENERAL 3V PELV/AP/LAT LEFT RADEX HIP UNILATERAL WITH PELVIS 2-3 VIEWS Libertad Julio MD [address] [place] [address] [place] [address] Referral ID Status Reason Start Date Expiration Date V isits Requested Visits Authorized [id number] Closed Auto-Generate d Referral 06/10/2024 07/10/2025 1 1 [facility] Reason for Referral Specialty Diagnoses / Procedures Referred By Contac t Referred To Contact CT IMAGING Diagnoses Hemoptysis Procedures CT CHEST WO IVCON DIAGNOSTIC COMPUTED TOMOGRAPHY THORAX W/O CNTRST PodchiaraarRomina, HYDROTREATER OPERATOR.MEDICAL REFERRAL COORDINATOR [address] [place] [address] Ct Imaging Referral ID Status Reason Start Date Expiration Date V isits Requested Visits Authorized [id number] Closed Auto-Generate d Referral 02/02/2022 03/04/2022 1 1 Specialty Diagnoses / Procedures Referred By Contac t Referred To Contact Orthopedics Diagnoses Olecranon bursitis of left elbow Procedures CONSULT TO ORTHOPAEDICS OFFICE/OUTPATIENT [facility] 60 MINUTES Libertad Julio MD [address] [place] [address] Referral ID Status Reason Start Date Expiration Date Visits Requested Visits Authorized [id number] Authorized PCP Requested Referral 01/23/2024 01/22/2025 1 1 Specialty Diagnoses / Procedures Referred By Contac t Referred To Contact CT IMAGING Diagnoses Lung nodules Procedures CT CHEST WO IVCON DIAGNOSTIC COMPUTED TOMOGRAPHY THORAX W/O CNTRST Libertad Julio MD [address] [place] [address] [place] [address] Referral ID Status Reason Start Date Expiration Date Visits Requested Visits Authorized [id number] Pending Review Auto-Generat ed Referral 09/10/2024 07/10/2025 1 1 Specialty Diagnoses / Procedures Referred By Bertha mcwilliams Referred To Contact XR IMAGING Diagnoses Fall in home, subsequent encounter Acute hip pain, left Procedures XR HIP GENERAL 3V PELV/AP/LAT LEFT RADEX HIP UNILATERAL WITH PELVIS 2-3 VIEWS Libertad Julio MD [address] [place] [address] [place] [address] Referral ID Status Reason Start Date Expiration Date V isits Requested Visits Authorized [id number] Closed Auto-Generate d Referral 06/10/2024 07/10/2025 1 1 Chief Complaint and Reason for Visit Chief Complaint 3 mos ICD f/u FALL Reason for Visit Persistent atrial fi brillation Ischemic cardiomyopathy Non-sustained ventricular tachycardia Paroxysmal atrial fibrillation Presence of implantable cardioverter-defibrillator (ICD) Chief Complaint FALL 3 mos ICD f/u 9 M FU EORDERS Reason for Visit Persistent atrial fi brillation Ischemic cardiomyopathy Non-sustained ventricular tachycardia Paroxysmal atrial fibrillation Presence of implantable cardioverter-defibrillator (ICD) Persistent atrial fibrillation Ischemic cardiomyopathy Presence of implantable cardioverter-defibrillator (ICD) H/O coronary artery bypass surgery Chief Complaint 3 mos ICD f/u 6 M FU lower ext Reason for Visit Ischemic cardiomyopa thy Paroxysmal atrial fibrillation Presence of implantable cardioverter-defibrillator (ICD) Persistent atrial fibrillation Ischemic cardiomyopathy Presence of implantable cardioverter-defibrillator (ICD) H/O coronary artery bypass surgery Chief Complaint 2 mos f/u approachin g SHARON Pacer Check Remote 2 mos ICD f/u approaching SHARON Pacer Check Remote Teaching for ICD change Sees MMM @ 9:30 INT LABSPEC Reason for Visit Persistent atrial fi brillation Ischemic cardiomyopathy Non-sustained ventricular tachycardia Paroxysmal atrial fibrillation Presence of implantable cardioverter-defibrillator (ICD) Persistent atrial fibrillation Ischemic cardiomyopathy Non-sustained ventricular tachycardia Paroxysmal atrial fibrillation Presence of implantable cardioverter-defibrillator (ICD) Persistent atrial fibrillation Ischemic cardiomyopathy Presence of implantable cardioverter-defibrillator (ICD) H/O coronary artery bypass surgery Persistent atrial fibrillation Ischemic cardiomyopathy Non-sustained ventricular tachycardia Paroxysmal atrial fibrillation Presence of implantable cardioverter-defibrillator (ICD) Chief Complaint 2 mos f/u approachin g SHARON Pacer Check Remote 2 mos ICD f/u approaching SHARON Pacer Check Remote Teaching for ICD change Sees MMM @ 9:30 INT LABSPEC ICD CHANGE DONAL SCI Reason for Visit Persistent atrial fi brillation Ischemic cardiomyopathy Non-sustained ventricular tachycardia Paroxysmal atrial fibrillation Presence of implantable cardioverter-defibrillator (ICD) Persistent atrial fibrillation Ischemic cardiomyopathy Non-sustained ventricular tachycardia Paroxysmal atrial fibrillation Presence of implantable cardioverter-defibrillator (ICD) Persistent atrial fibrillation Ischemic cardiomyopathy Presence of implantable cardioverter-defibrillator (ICD) H/O coronary artery bypass surgery Persistent atrial fibrillation Ischemic cardiomyopathy Non-sustained ventricular tachycardia Paroxysmal atrial fibrillation Presence of implantable cardioverter-defibrillator (ICD) Chief Complaint 2 mos ICD f/u approa papo SHARON Pacer Check Remote Teaching for ICD change Sees MMM @ 9:30 INT LABSPEC ICD CHANGE DONAL SCI 1 wk s/p ICD generator change DYSPNEA, SOB Reason for Visit Persistent atrial fi brillation Ischemic cardiomyopathy Non-sustained ventricular tachycardia Paroxysmal atrial fibrillation Presence of implantable cardioverter-defibrillator (ICD) Persistent atrial fibrillation Ischemic cardiomyopathy Presence of implantable cardioverter-defibrillator (ICD) H/O coronary artery bypass surgery Persistent atrial fibrillation Ischemic cardiomyopathy Non-sustained ventricular tachycardia Paroxysmal atrial fibrillation Presence of implantable cardioverter-defibrillator (ICD) Persistent atrial fibrillation Ischemic cardiomyopathy Non-sustained ventricular tachycardia Paroxysmal atrial fibrillation Presence of implantable cardioverter-defibrillator (ICD) Chief Complaint 2 mos ICD f/u approa papo SHARON Pacer Check Remote Teaching for ICD change Sees MMM @ 9:30 INT LABSPEC ICD CHANGE DONAL SCI 1 wk s/p ICD generator change Pacer Check Remote DYSPNEA, SOB E ORDERS Reason for Visit Persistent atrial fi brillation Ischemic cardiomyopathy Non-sustained ventricular tachycardia Paroxysmal atrial fibrillation Presence of implantable cardioverter-defibrillator (ICD) Persistent atrial fibrillation Ischemic cardiomyopathy Presence of implantable cardioverter-defibrillator (ICD) H/O coronary artery bypass surgery Persistent atrial fibrillation Ischemic cardiomyopathy Non-sustained ventricular tachycardia Paroxysmal atrial fibrillation Presence of implantable cardioverter-defibrillator (ICD) Persistent atrial fibrillation Ischemic cardiomyopathy Non-sustained ventricular tachycardia Paroxysmal atrial fibrillation Presence of implantable cardioverter-defibrillator (ICD) Chief Complaint 2 mos ICD f/u approa papo SHARON Pacer Check Remote Teaching for ICD change Sees MMM @ 9:30 INT LABSPEC ICD CHANGE DONAL SCI 1 wk s/p ICD generator change Pacer Check Remote DYSPNEA, SOB E ORDERS lump on elbow Reason for Visit Persistent atrial fi brillation Ischemic cardiomyopathy Non-sustained ventricular tachycardia Paroxysmal atrial fibrillation Presence of implantable cardioverter-defibrillator (ICD) Persistent atrial fibrillation Ischemic cardiomyopathy Presence of implantable cardioverter-defibrillator (ICD) H/O coronary artery bypass surgery Persistent atrial fibrillation Ischemic cardiomyopathy Non-sustained ventricular tachycardia Paroxysmal atrial fibrillation Presence of implantable cardioverter-defibrillator (ICD) Persistent atrial fibrillation Ischemic cardiomyopathy Non-sustained ventricular tachycardia Paroxysmal atrial fibrillation Presence of implantable cardioverter-defibrillator (ICD) Chief Complaint Admit Date Pacer Check Remote November 19, 2024 9:00 am O/D for FU/Sees Sabina @ 1:30 November 19 12:54pm 3 mos ICD f/u/Sees MMM @ November 19 12:56pm R GREAT TOE/PAIN/REDNESS January 02, 2025 11:37am CONCERN FOR GOUT ON R BIG TOE January 09, 2025 8:51am Reason for Visit Admit Date Persistent atrial fibrillation November 12:54pm Ischemic cardiomyopathy November 19, 2024 12:54pm Presence of implantable cardioverter-def ibrillator (ICD) November 19, 2024 12:54pm H/O coronary artery bypass surgery November 19, 2024 12:54pm Persistent atrial fibrillation November 12:56pm Ischemic cardiomyopathy November 19, 2024 12:56pm Non-sustained ventricular tachycardia Ap 2024 12:56pm Presence of implantable cardioverter-def ibrillator (ICD) November 19, 2024 12:56pm Gouty arthritis of right great toe December 132024 11:37am Gouty arthritis of right great toe December 132024 8:51am Chief Complaint Admit Date Pacer Check Remote November 19, 2024 9:00 am O/D for FU/Sees Sabina @ 1:30 November 19 12:54pm 3 mos ICD f/u/Sees MMM @ November 19 12:56pm R GREAT TOE/PAIN/REDNESS January 02, 2025 11:37am CONCERN FOR GOUT ON R BIG TOE January 09, 2025 8:51am PAIN IN L BIG TOE February 06, 2025 8:30 am Chief Complaint Admit Date Pacer Check Remote November 19, 2024 9:00 am O/D for FU/Sees Sabina @ 1:30 November 19 12:54pm 3 mos ICD f/u/Sees MMM @ 1 November 19 12:56pm R GREAT TOE/PAIN/REDNESS January 02, 2025 11:37am CONCERN FOR GOUT ON R BIG TOE January 09, 2025 8:51am PAIN IN L BIG TOE February 06, 2025 8:30 am Pacer check February 18, 2025 8:12a m Reason for Visit Admit Date Persistent atrial fibrillation November 12:54pm Ischemic cardiomyopathy November 19, 2024 12:54pm Presence of implantable cardioverter-def ibrillator (ICD) November 19, 2024 12:54pm H/O coronary artery bypass surgery November 19, 2024 12:54pm Persistent atrial fibrillation November 12:56pm Ischemic cardiomyopathy November 19, 2024 12:56pm Non-sustained ventricular tachycardia Ap 2024 12:56pm Presence of implantable cardioverter-def ibrillator (ICD) November 19, 2024 12:56pm Gouty arthritis of right great toe December 132024 11:37am Gouty arthritis of right great toe December 132024 8:51am Gouty arthritis of left great toe January 132024 8:30am Ischemic cardiomyopathy February 18, 2025 8 :12am Non-sustained ventricular tachycardia Ju 2024 8:12am Paroxysmal atrial fibrillation February 18, 2025 8:12am Presence of implantable cardioverter-def ibrillator (ICD) February 18, 2025 8:12am Chief Complaint Admit Date Pacer Check Remote November 19, 2024 9:00 am O/D for FU/Sees Sabina @ 1:30 November 19 12:54pm 3 mos ICD f/u/Sees MMM @ 1 November 19 12:56pm R GREAT TOE/PAIN/REDNESS January 02, 2025 11:37am CONCERN FOR GOUT ON R BIG TOE January 09, 2025 8:51am PAIN IN L BIG TOE February 06, 2025 8:30 am Pacer check February 18, 2025 8:12a m Pacer Check Remote February 18, 2025 9:00a m Chief Complaint Admit Date Pacer Check Remote November 19, 2024 9:00 am O/D for FU/Sees Sabina @ 1:November 19 12:54pm 3 mos ICD f/u/Sees MMM @ November 19 12:56pm R GREAT TOE/PAIN/REDNESS January 02, 2025 11:37am CONCERN FOR GOUT ON R BIG TOE January 09, 2025 8:51am PAIN IN L BIG TOE February 06, 2025 8:30 am Pacer check February 18, 2025 8:12a m Pacer Check Remote February 18, 2025 9:00a m 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 March 12, 2025 10:18am Chief Complaint Admit Date R GREAT TOE/PAIN/REDNESS January 02, 2025 11:37am CONCERN FOR GOUT ON R BIG TOE January 09, 2025 8:51am PAIN IN L BIG TOE February 06, 2025 8:30 am Pacer check February 18, 2025 8:12a m Pacer Check Remote February 18, 2025 9:00a m 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 March 12, 2025 10:18am lac March 27, 2025 9: 58am Reason for Visit Admit Date Gouty arthritis of right great toe December 132024 11:37am Gouty arthritis of right great toe December 132024 8:51am Gouty arthritis of left great toe January 132024 8:30am Ischemic cardiomyopathy February 18, 2025 8 :12am Non-sustained ventricular tachycardia Ju 2024 8:12am Paroxysmal atrial fibrillation February 18, 2025 8:12am Presence of implantable cardioverter-def ibrillator (ICD) February 18, 2025 8:12am Gouty arthritis of left great toe February 132024 10:18am Chief Complaint Admit Date Pacer check February 18, 2025 8:12a m Pacer Check Remote February 18, 2025 9:00a m 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 March 12, 2025 10:18am lac March 27, 2025 9: 58am 1 Y FU May 30, 2025 3 :03pm 3 M FU June 03, 2025 8 :12am Pacer Check Remote June 03, 2025 9 :00am Reason for Visit Admit Date Ischemic cardiomyopathy February 18, 2025 8 :12am Non-sustained ventricular tachycardia Ju ly 2024 8:12am Paroxysmal atrial fibrillation February 18, 2025 8:12am Presence of implantable cardioverter-def ibrillator (ICD) February 18, 2025 8:12am Gouty arthritis of left great toe February 132024 10:18am Persistent atrial fibrillation May 142024 3:03pm Ischemic cardiomyopathy May 30 3:03pm Presence of implantable cardioverter-def ibrillator (ICD) May 30, 2025 3:03pm H/O coronary artery bypass surgery Octob er 2024 3:03pm Persistent atrial fibrillation May 152024 8:12am Ischemic cardiomyopathy June 03 8:12am Non-sustained ventricular tachycardia Oc 2024 8:12am Paroxysmal atrial fibrillation May 152024 8:12am Presence of implantable cardioverter-def ibrillator (ICD) June 03, 2025 8:12am Chief Complaint Admit Date 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 March 12, 2025 10:18am lac March 27, 2025 9: 58am 1 Y FU May 30, 2025 3 :03pm 3 M FU June 03, 2025 8 :12am Pacer Check Remote June 03, 2025 9 :00am Reason for Visit Admit Date Gouty arthritis of left great toe February 132024 10:18am Persistent atrial fibrillation May 142024 3:03pm Ischemic cardiomyopathy May 30 3:03pm Presence of implantable cardioverter-def ibrillator (ICD) May 30, 2025 3:03pm H/O coronary artery bypass surgery Octob er 2024 3:03pm Persistent atrial fibrillation May 152024 8:12am Ischemic cardiomyopathy June 03 8:12am Non-sustained ventricular tachycardia Oc tob2024 8:12am Paroxysmal atrial fibrillation May 152024 8:12am Presence of implantable cardioverter-def ibrillator (ICD) June 03, 2025 8:12am Family History Relationship Condition Age at Onset Recorded Date/T toni father Coronary artery disease 55 brother Coronary artery disease Unknown History of three ves valeria coronary artery bypass Unknown brother Malignant neoplasm Unknown brother Unknown whether kleber ent has any health problems Unknown Advance Directives Advance Directive Response Recorded Date/ Time Advance Directives Yes February 24 3:05am Living Will No June 09 8:08pm Power of Senior Operations Manager No June 09, 2022 8:08pm Advance Directive Response Recorded Date/ Time Advance Directives Yes February 24 2:05am Living Will No June 09 7:08pm Power of Senior Operations Manager No June 09, 2022 7:08pm Advance Directive Response Recorded Date/ Time Name of Medical Power of Senior Operations Manager Mirna Kearney April 21, 2023 3:32pm Advance Directives Yes February 24 3:05am Living Will Yes April 21, 2 023 3:32pm Power of Senior Operations Manager Yes April 21, 2023 3:32pm Advance Directive Response Recorded Date/ Time Advance Directives Yes February 24 2:05am Living Will Yes April 21, 2 023 2:32pm Power of Senior Operations Manager Yes April 21, 2023 2:32pm Advance Directive Response Recorded Date/ Time Advance Directives on File No October 17, 2023 7:45am Advance Directives Yes October 16 7:45am Living Will Yes October 17, 2023 7:45am Power of Senior Operations Manager Yes October 16 7:45am Advance Directive Response Recorded Date/ Time Advance Directives on File No October 17, 2023 8:45am Advance Directives Yes October 16 8:45am Living Will Yes October 17, 2023 8:45am Power of Senior Operations Manager Yes October 16 8:45am Advance Directive Response Recorded Date/ Time Advance Directives on File No October 17, 2023 8:45am Name of Medical Power of Senior Operations Manager Meghna December 11, 2023 8:20pm Advance Directives Yes October 16 8:45am Living Will Yes December 11, 2023 8:20pm Power of Senior Operations Manager Yes December 10 8:20pm Advance Directive Response Recorded Date/ Time Advance Directives Yes January 28 8:21am Advance Directive Response Recorded Date/ Time Do you have a Healthcare Power of Senior Operations Manager? No March 27, 2025 11:30am Advance Directives Yes January 28 8:21am Advance Directive Response Recorded Date/ Time Living Will Yes January 29, 2024 8:21am Do you have a Healthcare Power of Senior Operations Manager? Yes January 29, 2024 8:21am Do you have a Healthcare Power of Senior Operations Manager? No March 27, 2025 11:30am Advance Directives Yes January 28 8:21am Advance Directive Response Recorded Date/ Time Living Will Yes January 29, 2024 7:21am Do you have a Healthcare Power of Senior Operations Manager? Yes January 29, 2024 7:21am Do you have a Healthcare Power of Senior Operations Manager? No March 27, 2025 10:30am Advance Directives Yes January 28 7:21am Summary Purpose Additional Source Comments Source Comments (unrecognize d section and content) In the event this informatio n is protected by the Federal Confidentiality of Alcohol and Drug Abuse Patient Records regulations: The Federal rules restrict any use of the information to criminally investigate or prosecute any alcohol or drug abuse patient.[facility] the event this information is protected by the Federal Confidentiality of Alcohol and Drug Abuse Patient Records regulations: The Federal rules restrict any use of the information to criminally investigate or prosecute any alcohol or drug abuse patient.[facility] CampusIn the event this information is protected by the Federal Confidentiality of Alcohol and Drug Abuse Patient Records regulations: The Federal rules restrict any use of the information to criminally investigate or prosecute any alcohol or drug abuse patient.[facility] CampusIn the event this information is protected by the Federal Confidentiality of Alcohol and Drug Abuse Patient Records regulations: The Federal rules restrict any use of the information to criminally investigate or prosecute any alcohol or drug abuse patient.[facility] CampusIn the event this information is protected by the Federal Confidentiality of Alcohol and Drug Abuse Patient Records regulations: The Federal rules restrict any use of the information to criminally investigate or prosecute any alcohol or drug abuse patient.[facility] CampusIn the event this information is protected by the Federal Confidentiality of Alcohol and Drug Abuse Patient Records regulations: The Federal rules restrict any use of the information to criminally investigate or prosecute any alcohol or drug abuse patient.[facility] CampusIn the event this information is protected by the Federal Confidentiality of Alcohol and Drug Abuse Patient Records regulations: The Federal rules restrict any use of the information to criminally investigate or prosecute any alcohol or drug abuse patient.[facility] CampusIn the event this information is protected by the Federal Confidentiality of Alcohol and Drug Abuse Patient Records regulations: The Federal rules restrict any use of the information to criminally investigate or prosecute any alcohol or drug abuse patient.[facility] CampusIn the event this information is protected by the Federal Confidentiality of Alcohol and Drug Abuse Patient Records regulations: The Federal rules restrict any use of the information to criminally investigate or prosecute any alcohol or drug abuse patient.[facility] CampusIn the event this information is protected by the Federal Confidentiality of Alcohol and Drug Abuse Patient Records regulations: The Federal rules restrict any use of the information to criminally investigate or prosecute any alcohol or drug abuse patient.[facility] CampusIn the event this information is protected by the Federal Confidentiality of Alcohol and Drug Abuse Patient Records regulations: The Federal rules restrict any use of the information to criminally investigate or prosecute any alcohol or drug abuse patient.[facility] CampusIn the event this information is protected by the Federal Confidentiality of Alcohol and Drug Abuse Patient Records regulations: The Federal rules restrict any use of the information to criminally investigate or prosecute any alcohol or drug abuse patient.[facility] CampusIn the event this information is protected by the Federal Confidentiality of Alcohol and Drug Abuse Patient Records regulations: The Federal rules restrict any use of the information to criminally investigate or prosecute any alcohol or drug abuse patient.[facility] CampusIn the event this information is protected by the Federal Confidentiality of Alcohol and Drug Abuse Patient Records regulations: The Federal rules restrict any use of the information to criminally investigate or prosecute any alcohol or drug abuse patient.[facility] CampusIn the event this information is protected by the Federal Confidentiality of Alcohol and Drug Abuse Patient Records regulations: The Federal rules restrict any use of the information to criminally investigate or prosecute any alcohol or drug abuse patient.[facility] CampusIn the event this information is protected by the Federal Confidentiality of Alcohol and Drug Abuse Patient Records regulations: The Federal rules restrict any use of the information to criminally investigate or prosecute any alcohol or drug abuse patient.[facility] CampusIn the event this information is protected by the Federal Confidentiality of Alcohol and Drug Abuse Patient Records regulations: The Federal rules restrict any use of the information to criminally investigate or prosecute any alcohol or drug abuse patient.[facility] CampusIn the event this information is protected by the Federal Confidentiality of Alcohol and Drug Abuse Patient Records regulations: The Federal rules restrict any use of the information to criminally investigate or prosecute any alcohol or drug abuse patient.[facility] CampusIn the event this information is protected by the Federal Confidentiality of Alcohol and Drug Abuse Patient Records regulations: The Federal rules restrict any use of the information to criminally investigate or prosecute any alcohol or drug abuse patient.[facility] CampusIn the event this information is protected by the Federal Confidentiality of Alcohol and Drug Abuse Patient Records regulations: The Federal rules restrict any use of the information to criminally investigate or prosecute any alcohol or drug abuse patient.[facility] CampusIn the event this information is protected by the Federal Confidentiality of Alcohol and Drug Abuse Patient Records regulations: The Federal rules restrict any use of the information to criminally investigate or prosecute any alcohol or drug abuse patient.[facility] CampusIn the event this information is protected by the Federal Confidentiality of Alcohol and Drug Abuse Patient Records regulations: The Federal rules restrict any use of the information to criminally investigate or prosecute any alcohol or drug abuse patient.[facility] CampusIn the event this information is protected by the Federal Confidentiality of Alcohol and Drug Abuse Patient Records regulations: The Federal rules restrict any use of the information to criminally investigate or prosecute any alcohol or drug abuse patient.[facility] CampusIn the event this information is protected by the Federal Confidentiality of Alcohol and Drug Abuse Patient Records regulations: The Federal rules restrict any use of the information to criminally investigate or prosecute any alcohol or drug abuse patient.[facility] CampusIn the event this information is protected by the Federal Confidentiality of Alcohol and Drug Abuse Patient Records regulations: The Federal rules restrict any use of the information to criminally investigate or prosecute any alcohol or drug abuse patient.[facility] CampusIn the event this information is protected by the Federal Confidentiality of Alcohol and Drug Abuse Patient Records regulations: The Federal rules restrict any use of the information to criminally investigate or prosecute any alcohol or drug abuse patient.[facility] Reason for Visit (unrecogniz ed section and content) Reason Comments Coughing Up Blood x1 year on and off Reason Comments Coughing Up Blood Reason Comments Radiology CT Specialty Diagnoses / Procedures Referred By Contac t Referred To Contact CT IMAGING Diagnoses Hemoptysis Procedures CT CHEST WO IVCON DIAGNOSTIC COMPUTED TOMOGRAPHY THORAX W/O CNTRST Romina Lozano APRN.MEDICAL REFERRAL COORDINATOR [address] [place] [address] Ct Imaging Referral ID Status Reason Start Date Expiration Date V isits Requested Visits Authorized [id number] Closed Auto-Generate d Referral 02/02/2022 03/04/2022 1 1 Reason Comments Results Reason Comments Returning Patient's Call Reason Comments Follow Up 6 month Reason Comments Pain Both legs experienci ng burning from knees down for 3 nights. Says he takes covers off and it subsides. Reason Onset Date Comments Refill Request 10/13/2023 Refill Request 10/16/2023 Reason Comments Annual Reason Comments ER F/U Reason Comments elbow issue Area present for salty rosette 1 month no pain. Patient seen in ER when 1st developed. Reason Comments Patient Request Reason Comments F/U 6 months Reason Comments ER F/U With back pain/gener alized pain Reason Comments Radiology CT Specialty Diagnoses / Procedures Referred By Contac t Referred To Contact CT IMAGING Diagnoses Lung nodules Procedures CT CHEST WO IVCON DIAGNOSTIC COMPUTED TOMOGRAPHY THORAX W/O CNTRST Libertad Julio MD [address] [place] [address] [place] [address] Referral ID Status Reason Start Date Expiration Date V isits Requested Visits Authorized [id number] Closed Auto-Generate d Referral 09/10/2024 11/08/2024 1 1 Reason Onset Date Comments Population Health Navigation Outreach 11/04/2024 [employer] 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 Reason Comments Patient Question Care Teams (unrecognized sec tion and content) [employer] Wirer Relationship Specialty Start Date End Date Libertad Julio MD [address] [place] [address] PCP - General Family Practice 12/01/16 [employer] Wirer Relationship Specialty Start Date End Date Libertad Julio MD [address] [place] [address] PCP - General Family Practice 12/01/16 [employer] Wirer Relationship Specialty Start Date End Date Libertad Julio MD [address] [place] [address] PCP - General Family Practice 12/01/16 [employer] Wirer Relationship Specialty Start Date End Date Libertad Julio MD [address] [place] [address] PCP - General Family Practice 12/01/16 Subassemblies Wirer Relationship Specialty Start Date End Date Libertad Julio MD [address] [place] [address] PCP - General Family Practice 12/01/16 Subassemblies Wirer Relationship Specialty Start Date End Date Libertad Julio MD [address] [place] [address] PCP - General Family Practice 12/01/16 Team Status: Active Member Role Status Dates Dr. Aroldo Julio MD Family Provider Active Dr. Aroldo Julio MD Primary Care Provider Acti ve Team Status: Inactive Member Role Status Dates Dr. Aroldo Julio MD Primary Care Provider, Ref erring Provider Active Gladys Rodriguez PA, PA Attending Provider Active Team Status: Inactive Member Role Status Dates Dr. Aroldo Julio MD Primary Care Provider, Ref erring Provider Active Tamara Nino Active Dr. Ten Tineo MD Attending Provider Active Team Status: Inactive Member Role Status Dates Dr. Aroldo Julio MD Primary Care Provider Acti ve Dr. Willie Corral DO Attending Provider, Emergency P devora Active Team Status: Inactive Member Role Status Dates Dr. Aroldo Julio MD Primary Care Provider Acti ve Gladys Rodriguez PA, PA Attending Provider, Referr ing Provider Active Subassemblies Wirer Relationship Specialty Start Date End Date Libertad Julio MD [address] [place] [address] PCP - General Family Medicine 12/01/16 Team Status: Inactive Member Role Status Dates Dr. Aroldo Julio MD Primary Care Provider, Ref erring Provider Active Nicole Wilde LAN ANALYST, LAN ANALYST-C Attending Provider Active Team Status: Inactive Member Role Status Dates Dr. Aroldo Julio MD Primary Care Provider Acti ve Dr. Vianca Haro DO Emergency Provider Active Team Status: Inactive Member Role Status Dates Dr. Aroldo Julio MD Primary Care Provider, Ref erring Provider Active Tamara Nino Attending Provider Active Team Status: Inactive Member Role Status Dates Dr. Aroldo Julio MD Primary Care Provider Acti ve Dr. Ten Tineo MD Attending Provider Active Subassemblies Wirer Relationship Specialty Start Date End Date Libertad Julio MD [address] [place] [address] PCP - General Family Medicine 12/01/16 Team Status: Inactive Member Role Status Dates Dr. Aroldo Julio MD Primary Care Provider Acti ve Dr. Santo Caro MD Attending Provider, Referrin g Provider Active Team Status: Active Member Role Status Dates Dr. Aroldo Julio MD Primary Care Provider Acti ve Dr. Ten Tineo MD Attending Provider Active Subassemblies Wirer Relationship Specialty Start Date End Date Libertad Julio MD [address] [place] [address] PCP - General Family Medicine 12/01/16 Subassemblies Wirer Relationship Specialty Start Date End Date Libertad Julio MD [address] [place] [address] PCP - General Family Medicine 12/01/16 Team Status: Inactive Member Role Status Dates Dr. Aroldo Julio MD Primary Care Provider Acti ve Dr. Doni Johnson MD Emergency Provider Active Subassemblies Wirer Relationship Specialty Start Date End Date Libertad Julio MD [address] [place] [address] PCP - General Family Medicine 12/01/16 Subassemblies Wirer Relationship Specialty Start Date End Date Libertad Julio MD [address] [place] [address] PCP - General Family Medicine 12/01/16 Subassemblies Wirer Relationship Specialty Start Date End Date Libertad Julio MD [address] [place] [address] PCP - General Family Medicine 12/01/16 Subassemblies Wirer Relationship Specialty Start Date End Date Libertad Julio MD [address] [place] [address] PCP - General Family Medicine 12/01/16 Subassemblies Wirer Relationship Specialty Start Date End Date Libertad Julio MD [address] [place] [address] PCP - General Family Medicine 12/01/16 Subassemblies Wirer Relationship Specialty Start Date End Date Libertad Julio MD [address] [place] [address] PCP - General Family Medicine 12/01/16 Subassemblies Wirer Relationship Specialty Start Date End Date Libertad Julio MD [address] [place] [address] PCP - General Family Medicine 12/01/16 Subassemblies Wirer Relationship Specialty Start Date End Date Libertad Julio MD [address] [place] [address] PCP - General Family Medicine 12/01/16 Subassemblies Wirer Relationship Specialty Start Date End Date Libertad Julio MD [address] [place] [address] PCP - General Family Medicine 12/01/16 Podlogar, TREY VanegasN.MEDICAL REFERRAL COORDINATOR [address] [place] [address] Planner/Scheduler Family Medicine 07/20/24 Subassemblies Wirer Relationship Specialty Start Date End Date Libertad Julio MD [address] [place] [address] PCP - General Family Medicine 12/01/16 Podlogar, Romina, HYDROTREATER OPERATOR.MEDICAL REFERRAL COORDINATOR [address] [place] [address] Planner/Scheduler Family Medicine 07/20/24 Subassemblies Wirer Relationship Specialty Start Date End Date Libertad Julio MD [address] [place] [address] PCP - General Family Medicine 12/01/16 Podlogar, Romina, HYDROTREATER OPERATOR.MEDICAL REFERRAL COORDINATOR [address] [place] [address] Planner/Scheduler Family Medicine 07/20/24 Jonathan Jo HYDROTREATER OPERATOR.MEDICAL REFERRAL COORDINATOR [address] [facility] [place] [address] [facility] 11/04/24 Team Status: Inactive Member Role Status Dates Dr. Aroldo Julio MD Primary Care Provider Acti ve Start: November 19, 2024 End: November 19, 2024 Dr. Ten Tineo MD Attending Provider Active S tart: November 19, 2024 End: November 19, 2024 Team Status: Inactive Member Role Status Dates Dr. Aroldo Julio MD Primary Care Provider Acti ve Start: November 19, 2024 End: November 19, 2024 Dr. Aroldo Julio MD Referring Provider Active Start: November 19, 2024 End: November 19, 2024 Gladys QUINTEROS, PA Attending Provider Active Start: November 19, 2024 End: November 19, 2024 Team Status: Inactive Member Role Status Dates Dr. Aroldo Julio MD Primary Care Provider Acti ve Start: November 19, 2024 End: November 19, 2024 Dr. Aroldo Julio MD Referring Provider Active Start: November 19, 2024 End: November 19, 2024 Dr. Ten Tineo MD Attending Provider Active S tart: November 19, 2024 End: November 19, 2024 Team Status: Inactive Member Role Status Dates Dr. Aroldo Julio MD Primary Care Provider Acti ve Start: January 02, 2025 End: January 02, 2025 Dr. Aroldo Julio MD Referring Provider Active Start: January 02, 2025 End: January 02, 2025 Magdaleno QUINTEROS PA Attending Provider Active Sta rt: January 02, 2025 End: January 02, 2025 Team Status: Inactive Member Role Status Dates Dr. Aroldo Julio MD Primary Care Provider Acti ve Start: January 09, 2025 End: January 09, 2025 Dr. Aroldo Julio MD Referring Provider Active Start: January 09, 2025 End: January 09, 2025 Magdaleno QUINTEROS PA Attending Provider Active Sta rt: January 09, 2025 End: January 09, 2025 Team Status: Inactive Member Role Status Dates Dr. Aroldo Julio MD Primary Care Provider Acti ve Start: February 06, 2025 End: February 06, 2025 Dr. Aroldo Julio MD Referring Provider Active Start: February 06, 2025 End: February 06, 2025 Magdaleno QUINTEROS PA Attending Provider Active Sta rt: February 06, 2025 End: February 06, 2025 Team Status: Active Member Role/Relationship Status Dates Dr. Aroldo Julio MD Family Provider Active Dr. Aroldo Julio MD Primary Care Provider Acti ve Team Status: Inactive Member Role/Relationship Status Dates Dr. Aroldo Julio MD Primary Care Provider Acti ve Start: November 19, 2024 End: November 19, 2024 Dr. Ten Tineo MD Attending Provider Active S tart: November 19, 2024 End: November 19, 2024 Team Status: Inactive Member Role/Relationship Status Dates Dr. Aroldo Julio MD Primary Care Provider Acti ve Start: November 19, 2024 End: November 19, 2024 Dr. Aroldo Julio MD Referring Provider Active Start: November 19, 2024 End: November 19, 2024 Gladys QUINTEROS PA Attending Provider Active Start: November 19, 2024 End: November 19, 2024 Team Status: Inactive Member Role/Relationship Status Dates Dr. Aroldo Julio MD Primary Care Provider Acti ve Start: November 19, 2024 End: November 19, 2024 Dr. Aroldo Julio MD Referring Provider Active Start: November 19, 2024 End: November 19, 2024 Dr. Ten Tineo MD Attending Provider Active S tart: November 19, 2024 End: November 19, 2024 Team Status: Inactive Member Role/Relationship Status Dates Dr. Aroldo Julio MD Primary Care Provider Acti ve Start: January 02, 2025 End: January 02, 2025 Dr. Aroldo Julio MD Referring Provider Active Start: January 02, 2025 End: January 02, 2025 Magdaleno QUINTEROS PA Attending Provider Active Sta rt: January 02, 2025 End: January 02, 2025 Team Status: Inactive Member Role/Relationship Status Dates Dr. Aroldo Julio MD Primary Care Provider Acti ve Start: January 09, 2025 End: January 09, 2025 Dr. Aroldo Julio MD Referring Provider Active Start: January 09, 2025 End: January 09, 2025 Magdaleno QUINTEROS PA Attending Provider Active Sta rt: January 09, 2025 End: January 09, 2025 Team Status: Inactive Member Role/Relationship Status Dates Dr. Aroldo Julio MD Primary Care Provider Acti ve Start: February 06, 2025 End: February 06, 2025 Dr. Aroldo Julio MD Referring Provider Active Start: February 06, 2025 End: February 06, 2025 Magdaleno QUINTEROS PA Attending Provider Active Sta rt: February 06, 2025 End: February 06, 2025 Team Status: Inactive Member Role/Relationship Status Dates Dr. Aroldo Julio MD Primary Care Provider Acti ve Start: February 18, 2025 End: February 18, 2025 Dr. Aroldo Julio MD Referring Provider Active Start: February 18, 2025 End: February 18, 2025 Tamara Nino Attending Provider Active Start: 2024 End: February 18, 2025 Team Status: Inactive Member Role/Relationship Status Dates Dr. Aroldo Julio MD Primary Care Provider Acti ve Start: February 18, 2025 End: February 18, 2025 Dr. Ten Tineo MD Attending Provider Active S tart: February 18, 2025 End: February 18, 2025 Team Status: Inactive Member Role/Relationship Status Dates Dr. Aroldo Julio MD Primary Care Provider Acti ve Start: February 18, 2025 End: February 18, 2025 Dr. Aroldo Julio MD Referring Provider Active Start: February 18, 2025 End: February 18, 2025 Dr. Ten Tineo MD Attending Provider Active S tart: February 18, 2025 End: February 18, 2025 Team Status: Inactive Member Role/Relationship Status Dates Dr. Aroldo Julio MD Primary Care Provider Acti ve Start: March 12, 2025 End: March 12, 2025 Dr. Aroldo Julio MD Referring Provider Active Start: March 12, 2025 End: March 12, 2025 SHAD Sunshine Attending Provider Active Star t: March 12, 2025 End: March 12, 2025 Team Status: Active Member Role/Relationship Status Dates Dr. Aroldo Julio MD Primary Care Provider Acti ve Team Status: Inactive Member Role/Relationship Status Dates Dr. Aroldo Julio MD Primary Care Provider Acti ve Start: January 02, 2025 End: January 02, 2025 Dr. Aroldo Julio MD Referring Provider Active Start: January 02, 2025 End: January 02, 2025 ALDAIR Maya Attending Provider Active Sta rt: January 02, 2025 End: January 02, 2025 Team Status: Inactive Member Role/Relationship Status Dates Dr. Aroldo Julio MD Primary Care Provider Acti ve Start: January 09, 2025 End: January 09, 2025 Dr. Aroldo Julio MD Referring Provider Active Start: January 09, 2025 End: January 09, 2025 ALDAIR Maya Attending Provider Active Sta rt: January 09, 2025 End: January 09, 2025 Team Status: Inactive Member Role/Relationship Status Dates Dr. Aroldo Julio MD Primary Care Provider Acti ve Start: February 06, 2025 End: February 06, 2025 Dr. Aroldo Julio MD Referring Provider Active Start: February 06, 2025 End: February 06, 2025 ALDAIR Maya Attending Provider Active Sta rt: February 06, 2025 End: February 06, 2025 Team Status: Inactive Member Role/Relationship Status Dates Dr. Aroldo Julio MD Primary Care Provider Acti ve Start: February 18, 2025 End: February 18, 2025 Dr. Aroldo Julio MD Referring Provider Active Start: February 18, 2025 End: February 18, 2025 Dr. Ten Tineo MD Attending Provider Active S tart: February 18, 2025 End: February 18, 2025 Team Status: Inactive Member Role/Relationship Status Dates Dr. Aroldo Julio MD Primary Care Provider Acti ve Start: February 18, 2025 End: February 18, 2025 Dr. Ten Tineo MD Attending Provider Active S tart: February 18, 2025 End: February 18, 2025 Team Status: Inactive Member Role/Relationship Status Dates Dr. Aroldo Julio MD Primary Care Provider Acti ve Start: March 12, 2025 End: March 12, 2025 Dr. Aroldo Julio MD Referring Provider Active Start: March 12, 2025 End: March 12, 2025 Gianfranco Moomaw , LAN ANALYST-C Attending Provider Active Star t: March 12, 2025 End: March 12, 2025 Team Status: Inactive Member Role/Relationship Status Dates Dr. Aroldo Julio MD Primary Care Provider Acti ve Start: March 27, 2025 End: March 27, 2025 Dr. Kiki Zaidi MD Emergency Provider Active S tart: March 27, 2025 End: March 27, 2025 Subassemblies Wirer Relationship Specialty Start Date End Date Libertad Julio MD [address] [place] [address] PCP - General Family Medicine 12/01/16 Romina Lozano HYDROTREATER OPERATOR.MEDICAL REFERRAL COORDINATOR [address] [place], [place] [id number] Planner/Scheduler Family Medicine 07/20/24 Jonathan Jo HYDROTREATER OPERATOR.MEDICAL REFERRAL COORDINATOR [address] [place], [place] [id number] Planner/Scheduler Family Medicine 01/23/25 Team Status: Active Member Role/Relationship Status Dates Dr. Aroldo Julio MD Primary care physician Act andrew Team Status: Inactive Member Role/Relationship Status Dates Dr. Aroldo Julio MD Primary care physician Act andrew Start: February 18, 2025 End: February 18, 2025 Dr. Aroldo Julio MD Referring Provider Active Start: February 18, 2025 End: February 18, 2025 Dr. Ten Tineo MD Attending physician Active Start: February 18, 2025 End: February 18, 2025 Team Status: Inactive Member Role/Relationship Status Dates Dr. Aroldo Julio MD Primary care physician Act andrew Start: February 18, 2025 End: February 18, 2025 Dr. Ten Tineo MD Attending physician Active Start: February 18, 2025 End: February 18, 2025 Team Status: Inactive Member Role/Relationship Status Dates Dr. Aroldo Julio MD Primary care physician Act andrew Start: March 12, 2025 End: March 12, 2025 Dr. Aroldo Julio MD Referring Provider Active Start: March 12, 2025 End: March 12, 2025 SHAD Sunshine Attending physician Active Sta rt: March 12, 2025 End: March 12, 2025 Team Status: Inactive Member Role/Relationship Status Dates Dr. Aroldo Julio MD Primary care physician Act andrew Start: March 27, 2025 End: March 27, 2025 Dr. Kiki Zaidi MD Attending physician Active Start: March 27, 2025 End: March 27, 2025 Dr. Kiki Zaidi MD Emergency Departmen t Physician Active Start: March 27, 2025 End: March 27, 2025 Team Status: Inactive Member Role/Relationship Status Dates Dr. Aroldo Julio MD Primary care physician Act andrew Start: May 30, 2025 End: May 30, 2025 Dr. Aroldo Julio MD Referring Provider Active Start: May 30, 2025 End: May 30, 2025 Dr. Ten Tineo MD Attending physician Active Start: May 30, 2025 End: May 30, 2025 Team Status: Inactive Member Role/Relationship Status Dates Dr. Aroldo Julio MD Primary care physician Act andrew Start: June 03, 2025 End: June 03, 2025 Dr. Aroldo Julio MD Referring Provider Active Start: June 03, 2025 End: June 03, 2025 Dr. Ten Tineo MD Attending physician Active Start: June 03, 2025 End: June 03, 2025 Team Status: Inactive Member Role/Relationship Status Dates Dr. Aroldo Julio MD Primary care physician Act andrew Start: June 03, 2025 End: June 03, 2025 Dr. Ten Tineo MD Attending physician Active Start: June 03, 2025 End: June 03, 2025 Team Status: Inactive Member Role/Relationship Status Dates Dr. Aroldo Julio MD Primary care physician Act andrew Start: March 12, 2025 End: March 12, 2025 Dr. Aroldo Julio MD Referring Provider Active Start: March 12, 2025 End: March 12, 2025 SHAD Sunshine Attending physician Active Sta rt: March 12, 2025 End: March 12, 2025 Team Status: Inactive Member Role/Relationship Status Dates Dr. Aroldo Julio MD Primary care physician Act andrew Start: March 27, 2025 End: March 27, 2025 Dr. Kiki Zaidi MD Attending physician Active Start: March 27, 2025 End: March 27, 2025 Dr. Kiki Zaidi MD Emergency Departmen t Physician Active Start: March 27, 2025 End: March 27, 2025 Team Status: Inactive Member Role/Relationship Status Dates Dr. Aroldo Julio MD Primary care physician Act andrew Start: May 30, 2025 End: May 30, 2025 Dr. Aroldo Julio MD Referring Provider Active Start: May 30, 2025 End: May 30, 2025 Dr. Ten Tineo MD Attending physician Active Start: May 30, 2025 End: May 30, 2025 Team Status: Inactive Member Role/Relationship Status Dates Dr. Aroldo Julio MD Primary care physician Act andrew Start: June 03, 2025 End: June 03, 2025 Dr. Aroldo Julio MD Referring Provider Active Start: June 03, 2025 End: June 03, 2025 Dr. Ten Tineo MD Attending physician Active Start: June 03, 2025 End: June 03, 2025 Team Status: Inactive Member Role/Relationship Status Dates Dr. Aroldo Julio MD Primary care physician Act anrdew Start: June 03, 2025 End: June 03, 2025 Dr. Ten Tineo MD Attending physician Active Start: June 03, 2025 End: June 03, 2025 Goals (unrecognized section and content) Goals may be documented in a n alternate sectionGoals may be documented in an alternate sectionGoals may be documented in an alternate sectionGoals may be documented in an alternate sectionGoals may be documented in an alternate sectionGoals may be documented in an alternate sectionGoals may be documented in an alternate sectionGoals may be documented in an alternate sectionGoals may be documented in an alternate sectionGoals may be documented in an alternate sectionGoals may be documented in an alternate sectionGoals may be documented in an alternate sectionGoals may be documented in an alternate sectionGoals may be documented in an alternate sectionGoals may be documented in an alternate sectionGoals may be documented in an alternate sectionGoals may be documented in an alternate sectionGoals may be documented in an alternate section (unrecognized sect ion and content) No Status Records FoundNo Status Records Found INFORMATION SOURCE (unrecogn ized section and content) DATE CREATED AUTHOR 04/05/2025 [facility] DATE CREATED AUTHOR AUTHOR'S MARGARET BARBOSA 06/11/2025 [facility] FOR RECORDS PERTAINING TO PATIENTS WHO ARE [...] BE BASED ON THE PRIMARY CLINICAL RECORDS. [facility] provides no warranty or guarantee of the accuracy or completeness of information in this document.
[2025-08-11 06:05] VITALS: BP 134/78; PULSE 18; RESP 90; TEMP 36.4; O2SAT 100
== END 2025-08-11 06:06 | disposition home or self-care (01) ==
PROVIDERS: Emergency Provider Emergency Medicine; PCP Family Medicine; Visit Provider Emergency Medicine
DX: M10.072 Idiopathic gout, left ankle and foot (principal); I48.19 Other persistent atrial fibrillation; N18.30 Chronic kidney disease, stage 3 unspecified; I12.9 Hypertensive chronic kidney disease with stage 1 through stage 4 chronic kidney disease, or unspecified chronic kidney disease; I25.5 Ischemic cardiomyopathy; E78.5 Hyperlipidemia, unspecified; Z79.01 Long term (current) use of anticoagulants; Z79.899 Other long term (current) drug therapy
CPT/HCPCS: 99282